=== PATIENT | female | born 1945 | race Caucasian/White ===

== ENCOUNTER 2016-09-10 10:20 | Inpatient (IN) | payer MEDICARE, BC ==
[2016-09-10] MEDS ORDERED: ACETAMINOPHEN IV (For NPO) 1,000 MG in EMPTY BAG 1 BAG IVPB STA (10:31)
[2016-09-10] MEDS ORDERED: IPRATROPIUM 0.5 MG/2.5 ML NEBU INHALATION STA (10:31)
[2016-09-10] MEDS ORDERED: ALBUTEROL NEBULIZED 2.5 MG/3 ML INHALATION STA (10:31)
[2016-09-10] MEDS ORDERED: SODIUM CHLORIDE 0.9% 1,000 ML IV STA (10:31)
--- NOTE | 2016-09-10 10:53 | ED ---
General Adult HPI - General Chief complaint: Shortness of Breath Stated complaint: diff breathing Time Seen by Provider: 09/10/16 10:31 Source: patient, RN notes reviewed, old records reviewed Mode of arrival: wheelchair Limitations: no limitations - History of Present Illness Initial comments: This is a 71-year-old female here for evaluation not feeling well. Fever and chills. Patient has history of COPD. Patient has no sick contacts travel history, no nausea vomiting or diarrhea. No known sick contacts or recent hospitalizations. Patient's complaining of stress of breath with COPD. Patient also complaining of fever. No modifying factors for fever, is taking. She was at home with no help. No chest at this time. No modifying factors for symptoms, mild shortness of breath with exertion - Related Data Home Medications Medication Instructions Recorded Confirmed Budesonide-Formot 160-4.5 Mcg 2 puff INHALATION RT-BID 12/11/13 09/10/16 [Symbicort 160-4.5 Mcg Inhaler] Levothyroxine Sodium [Synthroid] 125 mcg PO DAILY 12/11/13 09/10/16 Lisinopril [Zestril] 20 mg PO BID 12/11/13 09/10/16 Albuterol Sulfate [Proair Hfa] 2 puff INHALATION RT-Q6H PRN 01/08/16 09/10/16 Ipratropium-Albuterol Nebulize 3 ml INHALATION RT-Q4H PRN 01/08/16 09/10/16 [Duoneb 0.5 mg-3 mg/3 ml Soln] Aspirin 325 mg PO Q4H PRN 09/10/16 09/10/16 Ibuprofen [Motrin] 600 mg PO Q6HR PRN 09/10/16 09/10/16 Nystatin 100,000 Unit/ml Susp 500,000 units PO QID 09/10/16 09/10/16 [Mycostatin Oral Susp] Allergies Allergy/AdvReac Type Severity Reaction Status Date / Time bacitracin Allergy Unknown Verified 09/10/16 12:07 [From Neosporin ([id number])] neomycin Allergy Unknown Verified 09/10/16 12:07 [From Neosporin ([id number])] polymyxin B Allergy Unknown Verified 09/10/16 12:07 [From Neosporin ([id number])] prednisone AdvReac Severe SOB Verified 09/10/16 10:27 ELDA/POLY/DEX Allergy Unknown Uncoded 09/10/16 12:10 Review of Systems ROS Statement: Those systems with pertinent positive or pertinent negative responses have been documented in the HPI. ROS Other: All systems not noted in ROS Statement are negative. Past Medical History Past Medical History: Chest Pain / Angina, COPD, Hypertension, Osteoarthritis ( OA), Thyroid Disorder Additional Past Medical History / Comment(s): uses O2 2 liters n/c at night and PRN during the day. wound lt lower leg-since healed. pericarditis History of Any Multi-Drug Resistant Organisms: None Reported Past Surgical History: Heart Catheterization, Hysterectomy, Tubal Ligation Additional Past Surgical History / Comment(s): cataracts Past Anesthesia/Blood Transfusion Reactions: Previous Problems w/ Anesthesia, Postoperative Nausea & Vomiting (PONV) Additional Past Anesthesia/Blood Transfusion Reaction / Comment(s): oxygen was "low" post op, nausea one time Past Psychological History: No Psychological Hx Reported Smoking Status: Current every day smoker Past Alcohol Use History: Rare Additional Past Alcohol Use History / Comment(s): Pt reports has about an oz og gin per day Past Drug Use History: None Reported - Past Family History Mother History Unknown: Yes Family Medical History: Cancer, Thyroid Disorder Father History Unknown: Yes Family Medical History: Cancer General Exam Limitations: no limitations General appearance: alert, in no apparent distress, anxious Head exam: Present: atraumatic, normocephalic, normal inspection Eye exam: Present: normal appearance, PERRL, EOMI. Absent: scleral icterus, conjunctival injection, periorbital swelling ENT exam: Present: mucous membranes dry Neck exam: Present: normal inspection. Absent: tenderness, meningismus, lymphadenopathy Respiratory exam: Present: normal lung sounds bilaterally, wheezes, accessory muscle use, decreased breath sounds, prolonged expiratory. Absent: respiratory distress, rales, rhonchi, stridor Cardiovascular Exam: Present: regular rate, normal rhythm, normal heart sounds. Absent: systolic murmur, diastolic murmur, rubs, gallop, clicks GI/Abdominal exam: Present: soft, normal bowel sounds. Absent: distended, tenderness, guarding, rebound, rigid Extremities exam: Present: normal inspection, full ROM, normal capillary refill. Absent: tenderness, pedal edema, joint swelling, calf tenderness Back exam: Present: normal inspection Neurological exam: Present: alert, oriented X3, CN II-XII intact Psychiatric exam: Present: normal affect, normal mood Skin exam: Present: warm, dry, intact, normal color. Absent: rash Course Vital Signs 09/10/16 09/10/16 09/10/16 10:27 10:57 11:07 Temperature 100.2 F H Pulse Rate 89 101 H 101 H Respiratory 24 Rate Blood Pressure 132/65 O2 Sat by Pulse 92 L Oximetry 09/10/16 09/10/16 11:24 11:34 Temperature Pulse Rate 101 H 101 H Respiratory Rate Blood Pressure O2 Sat by Pulse Oximetry - Reevaluation(s) Reevaluation #1: 09/10/16 12:20 Patient is in no acute distress, states she feels better Brian did at home much better with the breathing treatment. EKG Findings - EKG Comments: EKG Findings:: EKG shows sinus tachycardia rate 101, pO2 42, QRS 90, QTC 422 Medical Decision Making - Medical Decision Making 71 female the ER with fever and shortness of breath, patient improving mesenteric therapy no respiratory distress but will be admitted secondary to COPD exacerbation and fever. Patient will get blood cultures, fever control, steroids and breathing treatments - Lab Data Result diagrams: 09/10/16 10:48 09/10/16 10:48 Lab Results 09/10/16 09/10/16 09/10/16 Range/Units 10:48 10:48 10:48 WBC 16.0 H (3.8-10.6) k/uL RBC 4.51 (3.80-5.40) m/uL Hgb 13.7 (11.4-16.0) gm/dL Hct 42.1 (34.0-46.0) % MCV 93.2 (80.0-100.0) fL MCH 30.5 (25.0-35.0) pg MCHC 32.7 (31.0-37.0) g/dL RDW 13.0 (11.5-15.5) % Plt Count 238 (150-450) k/uL Neutrophils % 88 % Lymphocytes % 6 % Monocytes % 3 % Eosinophils % 0 % Basophils % 0 % Neutrophils # 14.1 H (1.3-7.7) k/uL Lymphocytes # 0.9 L (1.0-4.8) k/uL Monocytes # 0.5 (0-1.0) k/uL Eosinophils # 0.1 (0-0.7) k/uL Basophils # 0.0 (0-0.2) k/uL PT (9.0-12.0) sec INR (<1.1) APTT (22.0-30.0) sec Sodium 135 L (137-145) mmol/L Potassium 4.2 (3.5-5.1) mmol/L Chloride 98 (98-107) mmol/L Carbon Dioxide 29 (22-30) mmol/L Anion Gap 8 mmol/L BUN 22 H (7-17) mg/dL Creatinine 0.65 (0.52-1.04) mg/dL Est GFR (MDRD) Af Amer >60 (>60 ml/min/1.73 sqM) Est GFR (MDRD) Non-Af >60 (>60 ml/min/1.73 sqM) Glucose 195 H (74-99) mg/dL Calcium 9.5 (8.4-10.2) mg/dL Magnesium 2.0 (1.6-2.3) mg/dL Total Bilirubin 0.6 (0.2-1.3) mg/dL AST 23 (14-36) U/L ALT 32 (9-52) U/L Alkaline Phosphatase 74 (38-126) U/L Total Creatine Kinase 126 (30-135) U/L CK-MB (CK-2) 2.3 (0.0-2.4) ng/mL CK-MB (CK-2) Rel Index 1.8 Troponin I <0.012 (0.000-0.034) ng/mL NT-Pro-B Natriuret Pep pg/mL Total Protein 6.3 (6.3-8.2) g/dL Albumin 3.6 (3.5-5.0) g/dL Influenza Type A RNA (Not Detectd) Influenza Type B (PCR) (Not Detectd) 09/10/16 09/10/16 09/10/16 Range/Units 10:48 10:48 10:48 WBC (3.8-10.6) k/uL RBC (3.80-5.40) m/uL Hgb (11.4-16.0) gm/dL Hct (34.0-46.0) % MCV (80.0-100.0) fL MCH (25.0-35.0) pg MCHC (31.0-37.0) g/dL RDW (11.5-15.5) % Plt Count (150-450) k/uL Neutrophils % % Lymphocytes % % Monocytes % % Eosinophils % % Basophils % % Neutrophils # (1.3-7.7) k/uL Lymphocytes # (1.0-4.8) k/uL Monocytes # (0-1.0) k/uL Eosinophils # (0-0.7) k/uL Basophils # (0-0.2) k/uL PT 9.6 (9.0-12.0) sec INR 0.9 (<1.1) APTT 20.5 L (22.0-30.0) sec Sodium (137-145) mmol/L Potassium (3.5-5.1) mmol/L Chloride (98-107) mmol/L Carbon Dioxide (22-30) mmol/L Anion Gap mmol/L BUN (7-17) mg/dL Creatinine (0.52-1.04) mg/dL Est GFR (MDRD) Af Amer (>60 ml/min/1.73 sqM) Est GFR (MDRD) Non-Af (>60 ml/min/1.73 sqM) Glucose (74-99) mg/dL Calcium (8.4-10.2) mg/dL Magnesium (1.6-2.3) mg/dL Total Bilirubin (0.2-1.3) mg/dL AST (14-36) U/L ALT (9-52) U/L Alkaline Phosphatase (38-126) U/L Total Creatine Kinase (30-135) U/L CK-MB (CK-2) (0.0-2.4) ng/mL CK-MB (CK-2) Rel Index Troponin I (0.000-0.034) ng/mL NT-Pro-B Natriuret Pep 72 pg/mL Total Protein (6.3-8.2) g/dL Albumin (3.5-5.0) g/dL Influenza Type A RNA Not Detected (Not Detectd) Influenza Type B (PCR) Not Detected (Not Detectd) Disposition Clinical Impression: Acute exacerbation of chronic obstructive airways disease, Fever, Community acquired pneumonia Disposition: ADMITTED IP TO THIS HOSP Condition: Fair Referrals: Chris Sears MD [Primary Care Provider] - 1-2 days
[2016-09-10 11:09] LABS: Basophils % (A) 0 %; CH 30.1; CHCM 32.4; Eosinophils # (A) 0.1 k/uL (0-0.7); Eosinophils % (A) 0 %; HCT 42.1 % (34.0-46.0); HDW 2.22; HGB 13.7 gm/dL (11.4-16.0); Luc # (Auto) 0.32; Luc % (Auto) 2; Lymphocytes # (A) 0.9 k/uL (1.0-4.8); Lymphocytes % (A) 6 %; MCH 30.5 pg (25.0-35.0); MCHC 32.7 g/dL (31.0-37.0); MCV 93.2 fL (80.0-100.0); Mean Platelet Volume 6.8; Monocytes # (A) 0.5 k/uL (0-1.0); Monocytes % (A) 3 %; Neutrophils # (A) 14.1 k/uL (1.3-7.7); Neutrophils % (A) 88 %; RBC 4.51 m/uL (3.80-5.40); WBC (Perox) 16.02
[2016-09-10 11:20] LABS: ALT 32 U/L (9-52); AST 23 U/L (14-36); Alkaline Phosphatase 74 U/L (38-126); Anion Gap 8 mmol/L; Blood Urea Nitrogen 22 mg/dL (7-17); Calcium 9.5 mg/dL (8.4-10.2); Carbon Dioxide 29 mmol/L (22-30); Chloride 98 mmol/L (98-107); Glucose 195 mg/dL (74-99); Non-African American GFR(MDRD) >60 (>60 ml/min/1.73 sqM); Potassium 4.2 mmol/L (3.5-5.1); Sodium 135 mmol/L (137-145); Total Bilirubin 0.6 mg/dL (0.2-1.3); Total Protein 6.3 g/dL (6.3-8.2)
[2016-09-10 11:26] LABS: INR 0.9 (<1.1); Prothrombin Time 9.6 sec (9.0-12.0)
[2016-09-10 11:39] LABS: Partial Thromboplastin Time 20.5 sec (22.0-30.0)
[2016-09-10 11:46] LABS: Creatine Kinase 126 U/L (30-135)
[2016-09-10 11:57] LABS: Creatine Kinase MB 2.3 ng/mL (0.0-2.4); Troponin I <0.012 ng/mL (0.000-0.034)
--- NOTE | 2016-09-10 12:00 | XR ---
EXAMINATION TYPE: XR chest 2V DATE OF EXAM: 09/10/2016 11:54 AM HISTORY: difficulty breathing. REFERENCE: Previous study dated 01/08/2016. FINDINGS: The lungs are overinflated but clear. Pleural spaces are clear. The heart is not enlarged. IMPRESSION: COPD.
[2016-09-10] MEDS ORDERED: AZITHROMYCIN 500 MG in SODIUM CHLORIDE 0.9% 250 ML IVPB STA (12:18)
[2016-09-10] MEDS ORDERED: PNEUMONIA PROTOCOL UTILIZED 1 EACH MISC PO PRN (12:18)
[2016-09-10] MEDS: SODIUM CHLORIDE 0.9% 1,000 ML IV SCH ×2 (12:42→21:30)
[2016-09-10 14:02] VITALS: BMI 23.3
[2016-09-10] MEDS ORDERED: IPRATROPIUM-ALBUTEROL 3 ML NEB INHALATION PRN (14:26)
[2016-09-10] MEDS: IPRATROPIUM-ALBUTEROL 3 ML NEB INHALATION SCH ×2 (15:33→19:42)
[2016-09-10] MEDS: IBUPROFEN 600 MG TAB PO PRN (15:40)
--- NOTE | 2016-09-10 16:50 | P.CNPUL ---
History of Present Illness Consult date: 09/10/16 Requesting physician: Chava Limon Reason for consult: dyspnea, COPD Chief complaint: Shortness of breath History of present illness: This is a very pleasant 71-year-old female patient who follows with Dr. Sears in our office as her primary care physician. She has a history of severe chronic obstructive pulmonary disease, Gold stage IV with FEV1 value of 28% of predicted. Unfortunately, she continues to smoke. She is maintained on Symbicort and DuoNeb inhalations. She has has a history of chronic anxiety, hypertension, hypothyroidism, chronic tobacco dependence, seasonal ALLERGIES. She had been doing fairly well as far as her COPD was concerned until recently. She developed increasing shortness of breath, cough and congestion. She was seen in a urgent care center and treated with low-dose prednisone. 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 Sears usually manages her with small doses which she does tolerate. She presented here to the emergency room today with increasing shortness of breath, cough and congestion. Her chest x-ray does show evidence of chronic obstructive pulmonary disease but no acute pulmonary process. Her influenza screen is negative. She has mild leukocytosis with a white count of 16.0. She did have a T-max of 100.2 on arrival. She is maintaining O2 saturations in the low 90s on 2 L/m per nasal cannula. She is seen currently on the regular medical floor. She is awake and alert in no acute distress. She states she is already breathing a little easier today as compared to yesterday. She did have complaints of fatigue and weakness and did have fever and chills at home. She has a productive cough of yellow sputum. No hemoptysis. Review of Systems 14 point review of system was conducted. All negative other than as mentioned in HPI. Past Medical History Past Medical History: Chest Pain / Angina, COPD, Hypertension, Osteoarthritis ( OA), Thyroid Disorder Additional Past Medical History / Comment(s): O2 2 liters nc at night and PRN during the day. History of Any Multi-Drug Resistant Organisms: None Reported Past Surgical History: Heart Catheterization, Hysterectomy, Tubal Ligation Additional Past Surgical History / Comment(s): cataracts removed Past Anesthesia/Blood Transfusion Reactions: Previous Problems w/ Anesthesia, Postoperative Nausea & Vomiting (PONV) Additional Past Anesthesia/Blood Transfusion Reaction / Comment(s): oxygen was "low" post op, nausea one time Past Psychological History: No Psychological Hx Reported Smoking Status: Current every day smoker Past Alcohol Use History: Rare Additional Past Alcohol Use History / Comment(s): special occasions only Past Drug Use History: None Reported - Past Family History Mother History Unknown: Yes Family Medical History: Cancer, Thyroid Disorder Additional Family Medical History / Comment(s): Liver Cancer Father History Unknown: Yes Family Medical History: Cancer Medications and Allergies Home Medications Medication Instructions Recorded Confirmed Type Budesonide-Formot 160-4.5 Mcg 2 puff INHALATION RT-BID 12/11/13 09/10/16 History [Symbicort 160-4.5 Mcg Inhaler] Levothyroxine Sodium [Synthroid] 125 mcg PO DAILY 12/11/13 09/10/16 History Lisinopril [Zestril] 20 mg PO BID 12/11/13 09/10/16 History Albuterol Sulfate [Proair Hfa] 2 puff INHALATION RT-Q6H PRN 01/08/16 09/10/16 History Ipratropium-Albuterol Nebulize 3 ml INHALATION RT-Q4H PRN 01/08/16 09/10/16 History [Duoneb 0.5 mg-3 mg/3 ml Soln] Aspirin 325 mg PO Q4H PRN 09/10/16 09/10/16 History Ibuprofen [Motrin] 600 mg PO Q6HR PRN 09/10/16 09/10/16 History Nystatin 100,000 Unit/ml Susp 500,000 units PO QID 09/10/16 09/10/16 History [Mycostatin Oral Susp] Allergies Allergy/AdvReac Type Severity Reaction Status Date / Time bacitracin Allergy Unknown Verified 09/10/16 12:07 [From Neosporin ([id number])] neomycin Allergy Unknown Verified 09/10/16 12:07 [From Neosporin ([id number])] polymyxin B Allergy Unknown Verified 09/10/16 12:07 [From Neosporin ([id number])] prednisone AdvReac Severe SOB Verified 09/10/16 10:27 ELDA/POLY/DEX Allergy Unknown Uncoded 09/10/16 12:10 Physical Exam Vitals: Vital Signs Temp Pulse Pulse Resp BP BP Pulse Ox 09/10/16 15:47 98 09/10/16 15:33 98 09/10/16 15:00 99.1 F 89 18 105/66 96 09/10/16 12:37 98.1 F 85 20 121/67 96 Intake and Output 09/10/16 09/10/16 09/10/16 06:59 14:59 22:59 Other: Voiding Method Toilet Toilet Weight 65.77 kg Patient Weight 09/11/16 06:59 Weight 65.77 kg GENERAL EXAM: Alert, comfortable in no apparent distress. HEAD: Normocephalic. EYES: Normal reaction of pupils, equal size. NOSE: Clear with pink turbinates. THROAT: No erythema or exudates. NECK: No masses, no JVD. CHEST: No chest wall deformity. LUNGS: Equal air entry with end expiratory wheeze. Diminished. CVS: S1 and S2 normal with no audible murmurs, regular rhythm. ABDOMEN: No hepatosplenomegaly, normal bowel sounds, no guarding or rigidity. SPINE: No scoliosis or deformity SKIN: No rashes CENTRAL NERVOUS SYSTEM: No focal deficits, tone is normal in all 4 extremities. Extremities: There is no peripheral edema. No clubbing, no cyanosis. Peripheral pulses are intact. Results - Laboratory Findings CBC and BMP: 09/10/16 10:48 09/10/16 10:48 PT/INR, D-dimer PT 9.6 sec (9.0-12.0) 09/10/16 10:48 INR 0.9 (<1.1) 09/10/16 10:48 - Diagnostic Findings Chest x-ray: image reviewed (COPD) Assessment and Plan Plan: Impression: #1 Acute exacerbation of severe Gold stage IV, oxygen dependent chronic obstructive pulmonary disease with an FEV1 value 28% of predicted. #2 Chronic and ongoing tobacco dependence. #3 Hypertension. #4 Hypothyroidism. Plan: The patient was seen and evaluated by Dr. Sears. Her chest x-ray and labs were reviewed. We'll continue with her current medications including bronchodilators and empiric antibiotics in the form of azithromycin and ceftriaxone. We will start her on prednisone 10 mg daily and she is usually able to tolerate this dose. 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 She is on Lovenox for DVT prophylaxis. Will increase her activity as tolerated. She is again educated regarding the importance of complete smoking cessation. A NicoDerm patch will be offered. We 'll continue to follow and make further recommendations based on her clinical status. Time with Patient: Greater than 30
[2016-09-10] MEDS: NICOTINE 14MG/24HR PATCH TRANSDERM SCH (17:01)
[2016-09-10] MEDS: predniSONE 10 MG TAB PO SCH (17:01)
[2016-09-10] MEDS: NYSTATIN 100,000 UNIT/ML SUSP 500,000 UNIT/5 ML CUP PO SCH ×2 (17:02→21:30)
[2016-09-10] MEDS ORDERED: HYDROcodone/APAP 5-325MG 1 EACH TAB PO PRN (19:55)
[2016-09-10] MEDS ORDERED: ALPRAZolam 0.25 MG TAB PO PRN (19:55)
[2016-09-10] MEDS ORDERED: TEMAZEPAM 15 MG CAP PO PRN (19:55)
[2016-09-10] MEDS ORDERED: SYMBICORT 160-4.5 MCG INHALER INHALATION SCH (20:00)
[2016-09-10] MEDS: BUDESONIDE 1 MG/2 ML NEBU INHALATION SCH (20:04)
[2016-09-10] MEDS: FORMOTEROL FUMARATE 20 MCG/2 ML NEBU INHALATION SCH (20:04)
[2016-09-10] MEDS: LISINOPRIL 20 MG TAB PO SCH (20:55)
[2016-09-11] MEDS: LEVOTHYROXINE 125 MCG TAB PO SCH (06:05)
[2016-09-11] MEDS: IBUPROFEN 600 MG TAB PO PRN (06:27)
[2016-09-11] MEDS: FORMOTEROL FUMARATE 20 MCG/2 ML NEBU INHALATION SCH ×2 (07:04→19:07)
[2016-09-11] MEDS: IPRATROPIUM-ALBUTEROL 3 ML NEB INHALATION SCH ×4 (07:05→19:07)
[2016-09-11] MEDS: BUDESONIDE 1 MG/2 ML NEBU INHALATION SCH ×2 (07:05→19:07)
--- NOTE | 2016-09-11 07:44 | XR ---
EXAMINATION TYPE: XR chest 2V DATE OF EXAM: 09/11/2016 6:24 AM HISTORY: pneumonia. REFERENCE: Previous study dated 09/10/2016. FINDINGS: The lungs are overinflated but clear. Pleural spaces are clear. Heart size is normal. IMPRESSION: COPD.
[2016-09-11 08:27] LABS: Basophils % (A) 0 %; CH 29.6; CHCM 31.1; Eosinophils # (A) 0.1 k/uL (0-0.7); Eosinophils % (A) 1 %; HCT 39.2 % (34.0-46.0); HDW 2.24; HGB 12.1 gm/dL (11.4-16.0); Hypochromasia Slight; Luc # (Auto) 0.48; Luc % (Auto) 4; Lymphocytes # (A) 1.5 k/uL (1.0-4.8); Lymphocytes % (A) 11 %; MCH 29.5 pg (25.0-35.0); MCHC 30.9 g/dL (31.0-37.0); MCV 95.4 fL (80.0-100.0); Mean Platelet Volume 6.9; Monocytes # (A) 0.4 k/uL (0-1.0); Monocytes % (A) 3 %; Neutrophils # (A) 10.3 k/uL (1.3-7.7); Neutrophils % (A) 81 %; RBC 4.11 m/uL (3.80-5.40); RDW 12.8 % (11.5-15.5); WBC 12.8 k/uL (3.8-10.6); WBC (Perox) 13.68
[2016-09-11] MEDS: PANTOPRAZOLE 40 MG TABLET PO SCH (08:29)
[2016-09-11] MEDS: ENOXAPARIN 40 MG/0.4 ML SYRINGE SQ SCH (08:29)
[2016-09-11] MEDS: LISINOPRIL 20 MG TAB PO SCH ×2 (08:29→20:06)
[2016-09-11] MEDS: NYSTATIN 100,000 UNIT/ML SUSP 500,000 UNIT/5 ML CUP PO SCH ×4 (08:29→20:59)
[2016-09-11] MEDS: predniSONE 10 MG TAB PO SCH (08:29)
[2016-09-11] MEDS: NICOTINE 14MG/24HR PATCH TRANSDERM SCH (08:30)
[2016-09-11 08:40] LABS: Anion Gap 7 mmol/L; Blood Urea Nitrogen 11 mg/dL (7-17); Calcium 8.8 mg/dL (8.4-10.2); Carbon Dioxide 28 mmol/L (22-30); Chloride 105 mmol/L (98-107); Glucose 121 mg/dL (74-99); Non-African American GFR(MDRD) >60 (>60 ml/min/1.73 sqM); Potassium 4.1 mmol/L (3.5-5.1); Sodium 140 mmol/L (137-145)
[2016-09-11] MEDS: SODIUM CHLORIDE 0.9% 1,000 ML IV SCH ×2 (08:41→20:05)
--- NOTE | 2016-09-11 09:40 | HP ---
DATE OF ADMISSION: 09/10/2016 CHIEF COMPLAINT: Shortness of breath. HISTORY OF PRESENT ILLNESS: This 71-year-old woman with a past medical history of multiple medical problems including chest pain, COPD, hypertension, history of pleurisy, pericarditis, history of chronic hypoxic respiratory failure, being followed by Dr. Sears in the outpatient setting, was not feeling well over the past several days. The patient denies shortness of breath and the patient also had fever and chills and felt very cold and the patient came to [facility] and admitted for further evaluation and treatment. Initial chest x-ray done in the ER showed only chronic obstructive pulmonary disease. There is no history of any headache, loss of consciousness or seizures. No history of hematochezia or melena at this time. Evaluation by Dr. Sears is progressing at this time. PAST MEDICAL HISTORY: COPD, hypertension, DJD, history of hypothyroidism, history of chronic hypoxic respiratory failure. Medications prior to admission include home medications are: 1. Nystatin 500,000 p.o. q.i.d. 2. Zestril 20 mg p.o. b.i.d. 3. Synthroid 125 mcg p.o. daily. 4. Duoneb 3 mL q.i.d. and q.4 and p.r.n. 5. Motrin 600 mg p.o. q.6 p.r.n. 6. Symbicort 160/4.5, 2 puffs b.i.d. 7. Aspirin 325 mg daily. 8. Pro-Air 2 puffs q.6 p.r.n. ALLERGIES: BACITRACIN, NEOMYCIN, POLYMYXIN. PREDNISONE NEOSPORIN. FAMILY HISTORY: History of cancer, thyroid disorder, liver cancer. SOCIAL HISTORY: History of smoking. Otherwise, no history of alcohol intake. REVIEW OF SYSTEMS: ENT: No diminished vision. No diminished hearing. CARDIOVASCULAR: No angina, palpitations. RESPIRATORY: as mentioned earlier. GASTROINTESTINAL: No nausea or vomiting. : No dysuria. CENTRAL NERVOUS SYSTEM: No numbness or weakness. ALLERGY/IMMUNOLOGY: No asthma or hayfever. MUSCULOSKELETAL: As mentioned earlier. HEMATOLOGY/ONCOLOGY: No history of anemia. ENDOCRINE: Hypothyroidism. CONSTITUTIONAL: As mentioned earlier. DERMATOLOGY: Negative. RHEUMATOLOGY: Negative. PSYCHIATRY: As mentioned earlier. PHYSICAL EXAMINATION: The patient is alert and oriented times three. Pulse is 89, blood pressure 130/65, respirations 24, temperature 100.2, pulse ox 90% on 2 L. HEENT: Conjunctivae normal. Oral mucosa moist. NECK: No jugular venous distention. No carotid bruit. No lymph node enlargement. CARDIOVASCULAR: S1, S2 muffled. No S3, no S4. RESPIRATORY: Breath sounds diminished at the bases. Bilateral scattered rhonchi and crackles. Expiratory wheezing also present. Expiratory prolongation of the breath sounds also present. No bronchial breath sounds. ABDOMEN: Soft, nontender. No mass palpable. Legs: No edema. No swelling. Nervous system: Higher function as mentioned earlier, moves all four limbs. No focal deficits. LYMPHATICS: No lymph nodes palpable in the neck, axillae or groin. SKIN: No ulcer, rash or bleeding. LABS: Chest x-ray reviewed. revealed increased bronchial vesicular markings. Otherwise WBC 16. APT 20.5. Sodium is 135. ASSESSMENT: 1. Chronic obstructive pulmonary disease exacerbation with acute purulent bronchitis. 2. Increased WBC. 3. Hyponatremia. 4. Increased random blood sugar. 5. History of chest pain, angina. 6. Hypertension. 7. Chronic hypoxic respiratory failure. 8. History of degenerative joint disease. 9. History of cardiac catheterization. 10. Continued ongoing nicotine dependence. 11. History of pericarditis. 12. History of degenerative joint disease. 13. History of hypothyroidism. RECOMMENDATIONS AND DISCUSSION: In this 71 -year-old woman who presented with multiple complex medical issues, we will monitor the patient closely. Continue with the current medication and symptomatic treatment. Otherwise, we will monitor the patient closely. Continue the intensive bronchodilator treatment, antibiotics. The patient was started on Rocephin and Zithromax. We will continue to monitor. Steroids. Guarded prognosis because of multiple complex medical issues. Further recommendations to follow. See orders. Home medications reconciliation has been done. DVT prophylaxis. Patient was started on Lovenox. Otherwise, we will follow the patient closely with Dr. Sears. See orders for further details. Prognosis guarded. A copy of dictation being forwarded to Dr. Sears who is the primary care physician. [facility]
[2016-09-11] MEDS: AZITHROMYCIN 500 MG TAB PO SCH (11:45)
--- NOTE | 2016-09-11 12:20 | P.PN ---
Subjective Principal diagnosis: Acute exacerbation of chronic obstructive pulmonary disease. This is a very pleasant 71-year-old female patient who follows with Dr. Sears in our office as her primary care physician. She has a history of severe chronic obstructive pulmonary disease, Gold stage IV with FEV1 value of 28% of predicted. Unfortunately, she continues to smoke. She is maintained on Symbicort and DuoNeb inhalations. She has has a history of chronic anxiety, hypertension, hypothyroidism, chronic tobacco dependence, seasonal ALLERGIES. She had been doing fairly well as far as her COPD was concerned until recently. She developed increasing shortness of breath, cough and congestion. She was seen in a urgent care center and treated with low-dose prednisone. 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 Sears usually manages her with small doses which she does tolerate. She presented here to the emergency room today with increasing shortness of breath, cough and congestion. Her chest x-ray does show evidence of chronic obstructive pulmonary disease but no acute pulmonary process. Her influenza screen is negative. She has mild leukocytosis with a white count of 16.0. She did have a T-max of 100.2 on arrival. She is maintaining O2 saturations in the low 90s on 2 L/m per nasal cannula. She is seen currently on the regular medical floor. She is awake and alert in no acute distress. She states she is already breathing a little easier today as compared to yesterday. She did have complaints of fatigue and weakness and did have fever and chills at home. She has a productive cough of yellow sputum. No hemoptysis. The patient is seen again today 09/11/2016 in follow-up on the regular medical floor. She is awake and alert in no acute distress. She is breathing better today as compared to yesterday but not quite back to her baseline. her repeat chest x-ray continues to show evidence of chronic obstructive pulmonary disease but no acute pulmonary process. No pneumonia. She has been maintaining good O2 saturations in the upper 90s on 2 L/m per nasal cannula. She's beenafebrile. Hemodynamically stable. White count improved. Objective - Vital Signs Vital signs: Vital Signs Temp 97.9 F 09/11/16 07:00 Pulse 84 09/11/16 11:14 Resp 16 09/11/16 07:00 BP 156/85 09/11/16 07:00 Pulse Ox 96 03/25/17 07:07 Intake & Output 09/10/16 09/11/16 09/11/16 18:59 06:59 18:59 Intake Total 400 Balance 400 Weight 65.77 kg Intake: Oral 400 Other: Voiding Method Toilet # Voids 2 1 - Exam GENERAL EXAM: Alert, active, comfortable in no apparent distress. HEAD: Normocephalic. EYES: Normal reaction of pupils, equal size. NOSE: Clear with pink turbinates. THROAT: No erythema or exudates. NECK: No masses, no JVD. CHEST: No chest wall deformity. LUNGS: Equal air entry with end expiratory wheeze, diminished. CVS: S1 and S2 normal with no audible mumurs, regular rhythm. ABDOMEN: No hepatosplenomegaly, normal bowel sounds, no guarding or rigidity. SPINE: No scoliosis or deformity SKIN: No rashes CENTRAL NERVOUS SYSTEM: No focal deficits, tone is normal in all 4 extremities. Extremities: There is no significant peripheral edema. No clubbing, no cyanosis. Peripheral pulses are intact. - Labs CBC & Chem 7: 09/11/16 07:51 09/11/16 07:48 Labs: Abnormal Lab Results - Last 24 Hours (Table) 09/11/16 09/11/16 Range/Units 07:48 07:51 WBC 12.8 H (3.8-10.6) k/uL MCHC 30.9 L (31.0-37.0) g/dL Neutrophils # 10.3 H (1.3-7.7) k/uL Glucose 121 H (74-99) mg/dL Microbiology - Last 24 Hours (Table) 09/10/16 17:00 Gram Stain - Preliminary Sputum Sputum Culture - Preliminary Assessment and Plan Plan: Impression: #1 Acute exacerbation of severe Gold stage IV, oxygen dependent chronic obstructive pulmonary disease with an FEV1 value 28% of predicted. chest x-ray continues to show COPD but no evidence of pneumonia. #2 Chronic and ongoing tobacco dependence. #3 Hypertension. #4 Hypothyroidism. Plan: The patient was seen and evaluated by Dr. Sears. Her chest x-ray and labs were reviewed. We'll continue with her current medications including bronchodilators and empiric antibiotics in the form of azithromycin and ceftriaxone. We will continue her on prednisone 10 mg daily and she is usually able to tolerate this dose. 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 She is on Lovenox for DVT prophylaxis. Will increase her activity as tolerated. She is again educated regarding the importance of complete smoking cessation. A NicoDerm patch has been applied. We'll continue to follow and make further recommendations based on her clinical status.
--- NOTE | 2016-09-11 12:44 | P.PN ---
Subjective Date of service 09/11/2016. Progress note being dictated for Dr. Limon. Interval history: This a 71-year-old female admitted with acute exacerbation COPD with purulent bronchitis, hyponatremia and multiple other medical issues. Maintained on Rocephin, Zithromax, nebulized bronchodilators, systemic steroids with breathing improving. Maintaining O2 sats of 96-97% on 2 L nasal cannula. Chest x-ray reporting COPD. Afebrile. Denies chest pain, palpitations or increasing shortness of breath. Objective - Vital Signs Vital signs: Vital Signs Temp 97.9 F 09/11/16 07:00 Pulse 84 09/11/16 11:14 Resp 16 09/11/16 07:00 BP 156/85 09/11/16 07:00 Pulse Ox 96 09/11/16 07:07 Intake & Output 09/10/16 09/11/16 09/11/16 18:59 06:59 18:59 Intake Total 400 Balance 400 Weight 65.77 kg Intake: Oral 400 Other: Voiding Method Toilet # Voids 2 1 - Exam PHYSICAL EXAM: VITAL SIGNS: As above GENERAL: [Sitting up in bed, no acute distress] HEENT: [Pupils equal conjunctiva normal.] NECK: [Supple, no JVD] RESPIRATORY EFFORT:[Mildly increased] LUNGS: Bilateral bases Diminished with expiratory wheezing, scattered rhonchi CARDIOVASCULAR[regular S1 and S2, no edema] GI: [Abdomen soft, nontender, positive bowel sounds.] PSYCH: [Alert and oriented -3, mood and affect normal.] NEURO: [No focal deficits, moves all 4 extremities, strength and sensation grossly intact] - Labs CBC & Chem 7: 09/11/16 07:51 09/11/16 07:48 Labs: Abnormal Lab Results - Last 24 Hours (Table) 09/11/16 09/11/16 Range/Units 07:48 07:51 WBC 12.8 H (3.8-10.6) k/uL MCHC 30.9 L (31.0-37.0) g/dL Neutrophils # 10.3 H (1.3-7.7) k/uL Glucose 121 H (74-99) mg/dL Microbiology - Last 24 Hours (Table) 09/10/16 17:00 Gram Stain - Preliminary Sputum Sputum Culture - Preliminary Assessment and Plan Plan: 1. [Acute exacerbation of COPD with purulent bronchitis]. 2. [Leukocytosis, improving]. 3. [Hyponatremia, resolved]. 4. [History of chest pain, angina]. 5. [Hypertension]. 6. [Chronic hypoxic respiratory failure]. 7. [Degenerative joint disease]. 8. Continued ongoing nicotine dependence 9. Hypothyroidism Plan: Continue on current medication regime, empiric antibiotics, nebulized bronchodilators, steroids, monitoring and symptomatic treatment. Smoking cessation readdressed. Increase ambulation as tolerated. Per pulmonary patient maintained on lower dose steroids given patient's history of steroid psychosis with higher doses. Further recommendations to follow. The impression and plan of care has been dictated as directed. : I performed a H&P examination of this patient and discussed the same with the dictator. I agree with the dictator's note. Any additional findings/opinions/ etc. will be noted.
[2016-09-12] MEDS: LEVOTHYROXINE 125 MCG TAB PO SCH (06:00)
[2016-09-12] MEDS: SODIUM CHLORIDE 0.9% 1,000 ML IV SCH ×2 (06:00→15:35)
[2016-09-12] MEDS: NICOTINE 14MG/24HR PATCH TRANSDERM SCH (08:02)
[2016-09-12] MEDS: PANTOPRAZOLE 40 MG TABLET PO SCH (08:03)
[2016-09-12] MEDS: predniSONE 10 MG TAB PO SCH (08:03)
[2016-09-12] MEDS: LISINOPRIL 20 MG TAB PO SCH (08:03)
[2016-09-12] MEDS: ENOXAPARIN 40 MG/0.4 ML SYRINGE SQ SCH (08:03)
[2016-09-12] MEDS: NYSTATIN 100,000 UNIT/ML SUSP 500,000 UNIT/5 ML CUP PO SCH ×2 (08:04→13:05)
[2016-09-12 08:14] VITALS: RESP 16
[2016-09-12] MEDS: IPRATROPIUM-ALBUTEROL 3 ML NEB INHALATION SCH ×2 (08:30→13:20)
[2016-09-12] MEDS: FORMOTEROL FUMARATE 20 MCG/2 ML NEBU INHALATION SCH (08:30)
[2016-09-12] MEDS: BUDESONIDE 1 MG/2 ML NEBU INHALATION SCH (08:30)
[2016-09-12 09:38] LABS: Basophils % (A) 0 %; CH 29.7; CHCM 31.5; Eosinophils # (A) 0.1 k/uL (0-0.7); Eosinophils % (A) 2 %; HCT 38.3 % (34.0-46.0); HDW 2.34; HGB 11.9 gm/dL (11.4-16.0); Luc # (Auto) 0.42; Luc % (Auto) 4; Lymphocytes # (A) 1.5 k/uL (1.0-4.8); Lymphocytes % (A) 16 %; MCH 29.4 pg (25.0-35.0); MCV 94.8 fL (80.0-100.0); Monocytes # (A) 0.4 k/uL (0-1.0); Monocytes % (A) 4 %; Neutrophils % (A) 74 %; RBC 4.04 m/uL (3.80-5.40); RDW 12.7 % (11.5-15.5); WBC 9.5 k/uL (3.8-10.6); WBC (Perox) 10.37
[2016-09-12 09:58] LABS: Anion Gap 7 mmol/L; Blood Urea Nitrogen 10 mg/dL (7-17); Calcium 9.2 mg/dL (8.4-10.2); Carbon Dioxide 30 mmol/L (22-30); Chloride 102 mmol/L (98-107); Glucose 138 mg/dL (74-99); Non-African American GFR(MDRD) >60 (>60 ml/min/1.73 sqM); Potassium 4.2 mmol/L (3.5-5.1); Sodium 139 mmol/L (137-145)
[2016-09-12] MEDS: AZITHROMYCIN 500 MG TAB PO SCH (11:10)
--- NOTE | 2016-09-12 11:28 | PN ---
DATE OF SERVICE: 09/11/2016 This 71-year-old woman was admitted with COPD acute exacerbation, is being closely monitored. Patient is improved slightly. Seen and evaluated the patient with the nurse practitioner. Please refer to the nurse practitioner's notes and impression document as ascribed for further information. Follow closely with Dr. Sears. Further recommendations to follow.
--- NOTE | 2016-09-12 12:58 | P.PN ---
Subjective Principal diagnosis: Acute exacerbation of COPD This is a very pleasant 71-year-old female patient who follows with Dr. Sears in our office as her primary care physician. She has a history of severe chronic obstructive pulmonary disease, Gold stage IV with FEV1 value of 28% of predicted. Unfortunately, she continues to smoke. She is maintained on Symbicort and DuoNeb inhalations. She has has a history of chronic anxiety, hypertension, hypothyroidism, chronic tobacco dependence, seasonal ALLERGIES. She had been doing fairly well as far as her COPD was concerned until recently. She developed increasing shortness of breath, cough and congestion. She was seen in a urgent care center and treated with low-dose prednisone. 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 Sears usually manages her with small doses which she does tolerate. She presented here to the emergency room today with increasing shortness of breath, cough and congestion. Her chest x-ray does show evidence of chronic obstructive pulmonary disease but no acute pulmonary process. Her influenza screen is negative. She has mild leukocytosis with a white count of 16.0. She did have a T-max of 100.2 on arrival. She is maintaining O2 saturations in the low 90s on 2 L/m per nasal cannula. She is seen currently on the regular medical floor. She is awake and alert in no acute distress. She states she is already breathing a little easier today as compared to yesterday. She did have complaints of fatigue and weakness and did have fever and chills at home. She has a productive cough of yellow sputum. No hemoptysis. The patient is seen again today 09/11/2016 in follow-up on the regular medical floor. She is awake and alert in no acute distress. She is breathing better today as compared to yesterday but not quite back to her baseline. her repeat chest x-ray continues to show evidence of chronic obstructive pulmonary disease but no acute pulmonary process. No pneumonia. She has been maintaining good O2 saturations in the upper 90s on 2 L/m per nasal cannula. She's beenafebrile. Hemodynamically stable. White count improved. Reevaluated today on 09/12/2016, patient is doing much better, breathing a lot easier. Hence the patient could be considered for discharge planning on her present meds including low dose of prednisone 10 mg tapered over the next 2 weeks, and it would be 10 mg daily for 1 week and 5 mg daily for 1 week. Patient is to resume her bronchodilators at home, and placed on Ceftin 500 mg twice a day for 1 week. Objective - Vital Signs Vital signs: Vital Signs Temp 96.3 F L 09/12/16 07:00 Pulse 84 09/12/16 08:58 Resp 16 09/12/16 07:00 BP 174/78 09/12/16 07:00 Pulse Ox 95 09/12/16 07:00 Intake & Output 09/11/16 09/12/16 09/12/16 18:59 06:59 18:59 Intake Total 660 Balance 660 Intake: Oral 660 Other: Voiding Method Toilet # Voids 1 2 - Exam GENERAL EXAM: Alert, active, comfortable in no apparent distress. HEAD: Normocephalic. EYES: Normal reaction of pupils, equal size. NOSE: Clear with pink turbinates. THROAT: No erythema or exudates. NECK: No masses, no JVD. CHEST: No chest wall deformity. LUNGS: Equal air entry diminished at the bases no crackles or rhonchi or wheezes. CVS: S1 and S2 normal with no audible mumurs, regular rhythm. ABDOMEN: No hepatosplenomegaly, normal bowel sounds, no guarding or rigidity. SPINE: No scoliosis or deformity SKIN: No rashes CENTRAL NERVOUS SYSTEM: No focal deficits, tone is normal in all 4 extremities. Extremities: There is no significant peripheral edema. No clubbing, no cyanosis. Peripheral pulses are intact. - Labs CBC & Chem 7: 09/12/16 08:37 09/12/16 08:37 Labs: Abnormal Lab Results - Last 24 Hours (Table) 09/12/16 Range/Units 08:37 Glucose 138 H (74-99) mg/dL Assessment and Plan Plan: #1 Acute exacerbation of severe Gold stage IV, oxygen dependent chronic obstructive pulmonary disease with an FEV1 value 28% of predicted. chest x-ray continues to show COPD but no evidence of pneumonia. #2 Chronic and ongoing tobacco dependence. #3 Hypertension. #4 Hypothyroidism. Recommendation: Consider discharging the patient home today on her usual bronchodilators, plus prednisone 10 mg tapered over 2 weeks, plus Ceftin 500 mg twice a day for 1 week, and to follow-up with me next week in the office. Time with Patient: Less than 30
[2016-09-12 15:37] VITALS: BP 148/96; PULSE 109; TEMP 97.7
--- NOTE | 2016-09-12 16:36 | DS ---
DATE OF ADMISSION: 09/10/2016 DATE OF DISCHARGE: DATE OF SERVICE: 09/12/2016 FINAL DIAGNOSES: 1. Chronic obstructive pulmonary disease acute exacerbation with acute purulent tracheobronchitis, leukocytosis improving. 2. Hyponatremia, resolved. 3. History of chest pain, angina. 4. Hypertension. 5. Chronic hypoxic respiratory failure. 6. Degenerative joint disease. 7. Continued ongoing nicotine dependence. 8. Hypothyroidism. DISCHARGE DISPOSITION: Patient will be discharged in a stable condition with guarded prognosis. Discharge cleared by Dr. Sears. HISTORY OF PRESENT ILLNESS: This 71-year-old woman with a past medical history of multiple medical problems being followed by Dr. Sears in the outpatient setting was admitted with COPD acute exacerbation with acute purulent tracheobronchitis. Treated with bronchodilators, steroids, and with antibiotics. Patient improved significantly. On exam, vitals are stable. CARDIOVASCULAR SYSTEM: S1, S2, muffled. RESPIRATORY: A few scattered rhonchi. ABDOMEN: Soft. Patient is keen on going home. Dr. Sears cleared the patient to be discharged. DISCHARGE ADVICE: 1. Diet is cardiac. 2. Activity limited until followup. 3. Follow up with Dr. Sears in 2 to 3 days. 4. Follow up labs with Dr. Sears. MEDICATIONS ARE: 1. Albuterol. 2. ProAir p.r.n. 3. Aspirin 325 mg p.r.n. 4. Zithromax 500 mg p.o. daily for 5 days. 5. Symbicort 160/4.5 two puffs b.i.d. 6. Ceftin 500 mg p.o. b.i.d. for 5 days. 7. Motrin p.r.n. 8. Albuterol Atrovent updrafts q.i.d. and p.r.n. 9. Synthroid 125 mcg p.o. daily. 10. Zestril 20 mg p.o. b.i.d. 11. Habitrol 14 daily. 12. Nystatin 500,000 p.o. daily. 13. Prednisone 10 mg daily to be adjusted in the outpatient setting by Dr. Sears. Once again, the patient will be discharged in a stable condition with guarded prognosis.
== END 2016-09-12 16:50 | disposition home or self-care (01) | DRG 191 ==
LOC: EC 10:20 → 4MS4W 12:20
PROVIDERS: ADMIT Hospitalist; ATTEND Hospitalist
DX: J44.1 Chronic obstructive pulmonary disease with (acute) exacerbation (principal); J96.11 Chronic respiratory failure with hypoxia; Z99.81 Dependence on supplemental oxygen; E87.1 Hypo-osmolality and hyponatremia; J20.9 Acute bronchitis, unspecified; J44.0 Chronic obstructive pulmonary disease with (acute) lower respiratory infection; E03.9 Hypothyroidism, unspecified; I10 Essential (primary) hypertension; M19.90 Unspecified osteoarthritis, unspecified site; R53.1 Weakness; R00.0 Tachycardia, unspecified; F41.9 Anxiety disorder, unspecified; J30.2 Other seasonal allergic rhinitis; D72.829 Elevated white blood cell count, unspecified; R73.09 Other abnormal glucose; R50.9 Fever, unspecified; F17.200 Nicotine dependence, unspecified, uncomplicated; Z71.6 Tobacco abuse counseling; Z86.79 Personal history of other diseases of the circulatory system; Z88.3 Allergy status to other anti-infective agents; Z88.8 Allergy status to other drugs, medicaments and biological substances; Z86.19 Personal history of other infectious and parasitic diseases; Z79.1 Long term (current) use of non-steroidal anti-inflammatories (NSAID); Z80.0 Family history of malignant neoplasm of digestive organs; Z79.899 Other long term (current) drug therapy; Z79.82 Long term (current) use of aspirin; Z79.51 Long term (current) use of inhaled steroids; Z98.42 Cataract extraction status, left eye; Z98.41 Cataract extraction status, right eye; Z98.51 Tubal ligation status; Z90.710 Acquired absence of both cervix and uterus; Z83.49 Family history of other endocrine, nutritional and metabolic diseases
CPT/HCPCS: 36415; 71020; 80048; 80053; 82550; 82553; 83735; 83880; 84484; 85025; 85610; 85730; 87040; 87070; 87077; 87186; 87205; 87502; 93005; 94640; 94644; 94760; 96361; 96374; 99285

== ENCOUNTER 2016-12-10 15:48 | Inpatient (IN) | payer MEDICARE, BC ==
[2016-12-10] MEDS ORDERED: SODIUM CHLORIDE 0.9% 1,000 ML IV STA (16:25)
[2016-12-10] MEDS ORDERED: IPRATROPIUM-ALBUTEROL 3 ML NEB INHALATION STA (16:26)
[2016-12-10 16:42] LABS: Basophils % (A) 0 %; CH 30.2; CHCM 31.5; Eosinophils % (A) 0 %; HCT 43.8 % (34.0-46.0); HDW 2.21; HGB 13.9 gm/dL (11.4-16.0); Luc % (Auto) 2; Lymphocytes # (A) 0.8 k/uL (1.0-4.8); Lymphocytes % (A) 7 %; MCH 30.4 pg (25.0-35.0); MCHC 31.7 g/dL (31.0-37.0); Mean Platelet Volume 6.6; Monocytes # (A) 0.4 k/uL (0-1.0); Monocytes % (A) 4 %; Neutrophils # (A) 10.2 k/uL (1.3-7.7); Neutrophils % (A) 87 %; RBC 4.56 m/uL (3.80-5.40); RDW 13.4 % (11.5-15.5); WBC 11.7 k/uL (3.8-10.6); WBC (Perox) 12.06
[2016-12-10 16:51] LABS: ALT 41 U/L (9-52); AST 25 U/L (14-36); Alkaline Phosphatase 76 U/L (38-126); Anion Gap 8 mmol/L; Blood Urea Nitrogen 20 mg/dL (7-17); Calcium 9.4 mg/dL (8.4-10.2); Carbon Dioxide 31 mmol/L (22-30); Chloride 94 mmol/L (98-107); Glucose 152 mg/dL (74-99); Non-African American GFR(MDRD) >60 (>60 ml/min/1.73 sqM); Potassium 4.5 mmol/L (3.5-5.1); Sodium 133 mmol/L (137-145); Total Bilirubin 0.1 mg/dL (0.2-1.3); Total Protein 6.2 g/dL (6.3-8.2)
[2016-12-10 17:05] LABS: Creatine Kinase 129 U/L (30-135)
--- NOTE | 2016-12-10 17:12 | XR ---
EXAMINATION TYPE: XR chest 2V DATE OF EXAM: 12/10/2016 COMPARISON: 11/25/2016 HISTORY: Short of breath TECHNIQUE: Frontal and lateral views of the chest are obtained. FINDINGS: Heart and mediastinum are normal. Costophrenic angles are clear. There are no hilar masses . There are chest leads. Bony thorax is intact. IMPRESSION: No active cardiopulmonary disease. No change.
[2016-12-10 17:14] LABS: INR 0.9 (<1.1); Prothrombin Time 9.4 sec (9.0-12.0)
[2016-12-10 17:18] LABS: Troponin I <0.012 ng/mL (0.000-0.034)
[2016-12-10 17:20] LABS: Partial Thromboplastin Time 20.5 sec (22.0-30.0)
[2016-12-10 17:22] LABS: Creatine Kinase MB 4.3 ng/mL (0.0-2.4)
--- NOTE | 2016-12-10 17:38 | ED ---
SOB HPI - General Chief Complaint: Shortness of Breath Stated Complaint: SHAYY Time Seen by Provider: 12/10/16 16:16 Source: patient Mode of arrival: ambulatory Limitations: no limitations - History of Present Illness Initial Comments: This 71-year-old white female presents with a complaint of shortness of breath. It has been intermittent over the last 3 months but worse over the last couple of days. She states that she's had occasional cough with very thick production which is noncolored. She denies any recent fever but did have one several days ago. She denies any actual chest pain. She does have a history of COPD. She has been seeing her lactation coordinator and states that she has been on 2 courses of Augmentin as well as some steroids. She states that she feels as though she may be ALLERGIC to the Augmentin and stopped this medication 9 days ago after only taking it for 5 days. She relates that she had a slight rash at that time and felt like her tissues under her chin were swelling up. It is difficult to obtain an accurate history from her . She denies any leg pain or swelling. She denies any history of DVT or PE. No current chest pain. No other complaints or modifying factors. - Related Data Home Medications Medication Instructions Recorded Confirmed Budesonide-Formot 160-4.5 Mcg 2 puff INHALATION RT-BID 12/11/13 12/10/16 [Symbicort 160-4.5 Mcg Inhaler] Levothyroxine Sodium [Synthroid] 125 mcg PO DAILY 12/11/13 12/10/16 Lisinopril [Zestril] 20 mg PO BID 12/11/13 12/10/16 Albuterol Sulfate [Proair Hfa] 2 puff INHALATION RT-Q6H PRN 01/08/16 12/10/16 Ipratropium-Albuterol Nebulize 3 ml INHALATION RT-QID PRN 01/08/16 12/10/16 [Duoneb 0.5 mg-3 mg/3 ml Soln] Aspirin EC [Ecotrin Low Dose] 81 mg PO DAILY 12/10/16 12/10/16 Vitamin B Complex 1 cap PO DAILY 12/10/16 12/10/16 Allergies Allergy/AdvReac Type Severity Reaction Status Date / Time bacitracin Allergy Rash/Hives Verified 12/10/16 16:38 [From Neosporin ([id number])] neomycin Allergy Rash/Hives Verified 12/10/16 16:38 [From Neosporin ([id number])] polymyxin B Allergy Rash/Hives Verified 12/10/16 16:38 [From Neosporin ([id number])] prednisone AdvReac Severe SOB Verified 12/10/16 16:38 ELDA/POLY/DEX Allergy Rash/Hives Uncoded 12/10/16 16:38 Review of Systems ROS Statement: Those systems with pertinent positive or pertinent negative responses have been documented in the HPI. ROS Other: All systems not noted in ROS Statement are negative. Past Medical History Past Medical History: Chest Pain / Angina, COPD, Hypertension, Osteoarthritis ( OA), Thyroid Disorder Additional Past Medical History / Comment(s): O2 2 liters nc at night and PRN during the day. History of Any Multi-Drug Resistant Organisms: None Reported Past Surgical History: Heart Catheterization, Hysterectomy, Tubal Ligation Additional Past Surgical History / Comment(s): cataracts removed Past Anesthesia/Blood Transfusion Reactions: Previous Problems w/ Anesthesia, Postoperative Nausea & Vomiting (PONV) Additional Past Anesthesia/Blood Transfusion Reaction / Comment(s): oxygen was "low" post op, nausea one time Past Psychological History: Anxiety Smoking Status: Current every day smoker Past Alcohol Use History: Rare Past Drug Use History: None Reported - Past Family History Mother History Unknown: Yes Family Medical History: Cancer, Thyroid Disorder Additional Family Medical History / Comment(s): Liver Cancer Father History Unknown: Yes Family Medical History: Cancer General Exam - General Exam Comments Initial Comments: GENERAL: The patient is well nourished and well hydrated. VITAL SIGNS: Heart rate, blood pressure, respiratory rate reviewed as recorded in nurse's notes. EYES: Pupils are round and reactive. Extraocular movements are intact. No conjunctival / lid redness or swelling. ENT: No external evidence of injury, swelling, or ecchymosis. Airway is patent. Throat is clear. NECK: Nontender. No swelling or evidence of injury. No subcutaneous emphysema. Trachea is midline. No thyroid mass. HEART: Regular rate and rhythm. Good peripheral pulses. LUNGS/CHEST: There is occasional wheezing noted bilaterally. No ecchymosis, subcutaneous emphysema, or tenderness. ABDOMEN: Abdomen soft without tenderness. No palpable masses or organomegaly. No peritoneal signs. No abdominal wall swelling or ecchymosis. EXTREMITIES: No extremity tenderness. Normal muscle tone and function. No thoracolumbar tenderness. NEUROLOGIC: Sensation is grossly intact. Cranial nerve exam reveals face is symmetrical, tongue is midline, speech is clear. SKIN: No abrasions or ecchymosis is noted. No induration or masses noted. PSYCHIATRIC: Alert and oriented. Appropriate behavior and judgment. Limitations: no limitations Course Vital Signs 12/10/16 12/10/16 12/10/16 15:57 16:10 16:39 Temperature 97.6 F Pulse Rate 108 H 100 Respiratory 18 20 Rate Blood Pressure 169/100 O2 Sat by Pulse 94 L Oximetry 12/10/16 16:50 Temperature Pulse Rate 95 Respiratory Rate Blood Pressure O2 Sat by Pulse Oximetry Medical Decision Making - Medical Decision Making The patient is seen and examined. All diagnostics are reviewed. The EKG shows a sinus tachycardia at a rate of 101. There is no ST elevation identified. There is no acute ST T-wave changes noted other than some T-wave inversion in aVL and flattened T waves in lead 1. The IL interval is 150, QRS duration is 94 , and the QTc interval is 451. The laboratory shows a slight hyponatremia and hypochloremia. There is slight elevation of the glucose and CK-MB and white blood cell count. The d-dimer is negative. The troponin is negative. Overall , it is felt as though she has an exacerbation of COPD as well as tracheobronchitis. This is similar to what she had when she was admitted in August 2016. The case will be discussed with internal medicine and she will be admitted with pulmonology to consult. Of note, her ALLERGIES stated that she is ALLERGIC to prednisone but she states that she has been taking this for quite some time and there does not appear to be any ALLERGY to prednisone or steroids. - Lab Data Result diagrams: 12/10/16 16:00 12/10/16 16:00 Lab Results 12/10/16 12/10/16 12/10/16 Range/Units 16:00 16:00 16:00 WBC 11.7 H (3.8-10.6) k/uL RBC 4.56 (3.80-5.40) m/uL Hgb 13.9 (11.4-16.0) gm/dL Hct 43.8 (34.0-46.0) % MCV 96.0 (80.0-100.0) fL MCH 30.4 (25.0-35.0) pg MCHC 31.7 (31.0-37.0) g/dL RDW 13.4 (11.5-15.5) % Plt Count 296 (150-450) k/uL Neutrophils % 87 % Lymphocytes % 7 % Monocytes % 4 % Eosinophils % 0 % Basophils % 0 % Neutrophils # 10.2 H (1.3-7.7) k/uL Lymphocytes # 0.8 L (1.0-4.8) k/uL Monocytes # 0.4 (0-1.0) k/uL Eosinophils # 0.0 (0-0.7) k/uL Basophils # 0.0 (0-0.2) k/uL PT (9.0-12.0) sec INR (<1.1) APTT (22.0-30.0) sec D-Dimer (<0.60) mg/L FEU Sodium 133 L (137-145) mmol/L Potassium 4.5 (3.5-5.1) mmol/L Chloride 94 L (98-107) mmol/L Carbon Dioxide 31 H (22-30) mmol/L Anion Gap 8 mmol/L BUN 20 H (7-17) mg/dL Creatinine 0.80 (0.52-1.04) mg/dL Est GFR (MDRD) Af Amer >60 (>60 ml/min/1.73 sqM) Est GFR (MDRD) Non-Af >60 (>60 ml/min/1.73 sqM) Glucose 152 H (74-99) mg/dL Calcium 9.4 (8.4-10.2) mg/dL Magnesium 2.0 (1.6-2.3) mg/dL Total Bilirubin 0.1 L (0.2-1.3) mg/dL AST 25 (14-36) U/L ALT 41 (9-52) U/L Alkaline Phosphatase 76 (38-126) U/L Total Creatine Kinase 129 (30-135) U/L CK-MB (CK-2) 4.3 H* (0.0-2.4) ng/mL CK-MB (CK-2) Rel Index 3.3 Troponin I <0.012 (0.000-0.034) ng/mL NT-Pro-B Natriuret Pep pg/mL Total Protein 6.2 L (6.3-8.2) g/dL Albumin 3.9 (3.5-5.0) g/dL 12/10/16 12/10/16 Range/Units 16:00 16:00 WBC (3.8-10.6) k/uL RBC (3.80-5.40) m/uL Hgb (11.4-16.0) gm/dL Hct (34.0-46.0) % MCV (80.0-100.0) fL MCH (25.0-35.0) pg MCHC (31.0-37.0) g/dL RDW (11.5-15.5) % Plt Count (150-450) k/uL Neutrophils % % Lymphocytes % % Monocytes % % Eosinophils % % Basophils % % Neutrophils # (1.3-7.7) k/uL Lymphocytes # (1.0-4.8) k/uL Monocytes # (0-1.0) k/uL Eosinophils # (0-0.7) k/uL Basophils # (0-0.2) k/uL PT 9.4 (9.0-12.0) sec INR 0.9 (<1.1) APTT 20.5 L (22.0-30.0) sec D-Dimer 0.26 (<0.60) mg/L FEU Sodium (137-145) mmol/L Potassium (3.5-5.1) mmol/L Chloride (98-107) mmol/L Carbon Dioxide (22-30) mmol/L Anion Gap mmol/L BUN (7-17) mg/dL Creatinine (0.52-1.04) mg/dL Est GFR (MDRD) Af Amer (>60 ml/min/1.73 sqM) Est GFR (MDRD) Non-Af (>60 ml/min/1.73 sqM) Glucose (74-99) mg/dL Calcium (8.4-10.2) mg/dL Magnesium (1.6-2.3) mg/dL Total Bilirubin (0.2-1.3) mg/dL AST (14-36) U/L ALT (9-52) U/L Alkaline Phosphatase (38-126) U/L Total Creatine Kinase (30-135) U/L CK-MB (CK-2) (0.0-2.4) ng/mL CK-MB (CK-2) Rel Index Troponin I (0.000-0.034) ng/mL NT-Pro-B Natriuret Pep 52 pg/mL Total Protein (6.3-8.2) g/dL Albumin (3.5-5.0) g/dL Disposition Clinical Impression: Dyspnea, Hypertension, Hyponatremia, Hypochloremia, Hyperglycemia, Tracheobronchitis, Acute exacerbation of chronic obstructive airways disease Disposition: ADMITTED IP TO THIS HOSP Condition: Fair Time of Disposition: 17:53 Decision Date: 12/10/16 Decision Time: 17:53
[2016-12-10] MEDS ORDERED: methylPREDNISolone SOD SUCCI 125 MG/2 ML VIAL IV STA (17:55)
[2016-12-10] MEDS ORDERED: AZITHROMYCIN 500 MG in SODIUM CHLORIDE 0.9% 250 ML IVPB STA (18:00)
[2016-12-10 19:51] VITALS: BMI 23.6
[2016-12-10] MEDS: BUDESONIDE 0.5 MG/2 ML NEBU INHALATION SCH (20:01)
[2016-12-10] MEDS: IPRATROPIUM-ALBUTEROL 3 ML NEB INHALATION PRN ×2 (20:02→23:40)
[2016-12-10] MEDS: methylPREDNISolone SOD SUCCI 125 MG/2 ML VIAL IV SCH (21:55)
[2016-12-10] MEDS: LISINOPRIL 20 MG TAB PO SCH (21:56)
[2016-12-10] MEDS: NICOTINE 14MG/24HR PATCH TRANSDERM SCH (21:58)
[2016-12-11] MEDS: methylPREDNISolone SOD SUCCI 125 MG/2 ML VIAL IV SCH ×5 (00:28→23:45)
[2016-12-11] MEDS: IPRATROPIUM-ALBUTEROL 3 ML NEB INHALATION PRN ×5 (03:35→19:44)
[2016-12-11] MEDS: LEVOTHYROXINE 125 MCG TAB PO SCH (05:45)
[2016-12-11 07:06] LABS: Glucose,Whole Blood 202 mg/dL (75-99)
--- NOTE | 2016-12-11 07:51 | HP ---
DATE OF ADMISSION: CHIEF COMPLAINT: Short of breath. HISTORY OF PRESENT ILLNESS: Mrs. Castellanos is a 71-year-old female with known history of hypertension, COPD, currently an everyday smoker, came to the hospital with complaints of short of breath, which has been present for the past 3 months and getting worse the last 2 days. Patient also complained of cough with a thick sputum production. Denied any hemoptysis. More of a whitish to yellowish sputum production. Denied any fever. Denied any chest pain. Otherwise the patient denied any recent illnesses. Patient was admitted to the hospital previously and was treated for COPD exacerbation 3 months back. She states that she has not ( ) completely since that time. The patient also says that she is ALLERGIC TO PENICILLIN and does not want to take Augmentin. She says that she had rash as well as itching due to antibiotics in the form of Augmentin at that time. Otherwise denied any recent illnesses. No sick contacts at home. Patient does smoke every day. Otherwise patient is a poor historian. REVIEW OF SYSTEMS: CONSTITUTIONAL: No fever. No chills. No weakness. RESPIRATORY: Patient does have cough with sputum production and short of breath. CARDIOVASCULAR: No chest pain. Patient does have short of breath. No leg swelling. ABDOMEN: No nausea, vomiting, abdominal pain. GENITOURINARY: No dysuria. No hematuria. ENDOCRINE: No heat or cold intolerance. MUSCULOSKELETAL: No joint swelling or deformity. SKIN: Negative. NEUROLOGIC: No headache or dizziness, lightheadedness. No numbness or tingling. All other fourteen-point review of systems negative except as above. PAST MEDICAL HISTORY: Chest pain/angina, COPD, hypertension, osteoarthritis, hypothyroidism, COPD on home oxygen by nasal cannula 2 L at night p.r.n. PAST SURGICAL HISTORY: Cardiac catheterization, hysterectomy, tubal ligation, cataract surgery. PSYCHOSOCIAL HISTORY: Anxiety. SOCIAL HISTORY: Patient currently at a smoker, occasional alcohol use, denied any drugs or IVDU. FAMILY HISTORY: Mother had liver cancer and thyroid disorder. Father had cancer as well. ALLERGIES INCLUDE BACITRACIN, NEOMYCIN, POLYMYXIN, PREDNISONE. HOME MEDICATIONS: Symbicort, levothyroxine, Zestril, albuterol ipratropium, DuoNeb, aspirin, vitamin B complex. PHYSICAL EXAMINATION: A 71-year-old female lying in the bed, awake, alert and oriented x3. Appears to be in no apparent distress. VITALS: Blood pressure is 168/63, pulse is 95, respiratory rate 20, temperature afebrile, pulse ox 95% on 3 liters nasal cannula. HEENT: Atraumatic, normocephalic. Neck is supple. No JVD. CVS: S1, S2 heard. No gallop. LUNGS: Bilateral air entry decreased, wheezing positive. Nonlabored breathing. Not using accessory muscles. ABDOMEN: Soft, nontender, bowel sounds present. SUPERINTENDENT TRANSPORTATION: Alert and oriented x3. No focal deficit. EXTREMITIES: No edema. Pulses palpable bilaterally. No clubbing or cyanosis. PSYCHIATRIC: Cooperative. LABORATORY DATA: WBC 11.7, hemoglobin 13.9, platelets 296. INR is 0.9. D-dimer 0.26. Sodium 133, potassium 4.5, chloride 94, bicarb 31, BUN 20, creatinine 0.8. Troponin ( )52. ( ). IMPRESSION: 1. Short of breath secondary to acute chronic obstructive pulmonary disease exacerbation and tracheobronchitis purulent. 2. Uncontrolled hypertension. 3. Hypovolemic hyponatremia. 4. Nicotine addiction. 5. Osteoarthritis. 6. Chronic respiratory failure secondary to chronic obstructive pulmonary disease, home oxygen -dependent, hypoxic. 7. Deep venous thrombosis prophylaxis with Lovenox. DISCUSSION AND PLAN: The patient will be continued on IV steroids, DuoNeb and Pulmicort. Pulmonary has been consulted. Will continue the current management and follow up closely. Recheck labs in the morning.
[2016-12-11] MEDS: INSULIN LISPRO (humaLOG) 300 UNIT/3 ML VIAL SQ SCH ×4 (08:20→21:31)
[2016-12-11] MEDS: LISINOPRIL 20 MG TAB PO SCH ×2 (08:20→20:16)
[2016-12-11] MEDS: B COMPLEX-VIT C-VIT E-ZINC 1 EACH TAB PO SCH (08:20)
[2016-12-11] MEDS: ENOXAPARIN 40 MG/0.4 ML SYRINGE SQ SCH (08:20)
[2016-12-11] MEDS: ASPIRIN 81 MG CHEW PO SCH (08:20)
[2016-12-11] MEDS: BUDESONIDE 0.5 MG/2 ML NEBU INHALATION SCH (08:28)
[2016-12-11] MEDS ORDERED: AZITHROMYCIN 500 MG in SODIUM CHLORIDE 0.9% 250 ML IVPB SCH (09:00)
[2016-12-11] MEDS: ACETAMINOPHEN TAB 325 MG TAB PO PRN ×2 (09:42→20:17)
[2016-12-11 10:53] LABS: Basophils % (A) 0 %; CH 29.9; CHCM 30.4; Eosinophils % (A) 0 %; HCT 46.1 % (34.0-46.0); HDW 2.18; HGB 13.8 gm/dL (11.4-16.0); Hypochromasia Slight; Luc # (Auto) 0.11; Luc % (Auto) 1; Lymphocytes # (A) 0.5 k/uL (1.0-4.8); Lymphocytes % (A) 4 %; MCH 29.6 pg (25.0-35.0); MCV 98.7 fL (80.0-100.0); Mean Platelet Volume 6.9; Monocytes # (A) 0.6 k/uL (0-1.0); Monocytes % (A) 4 %; Neutrophils # (A) 12.4 k/uL (1.3-7.7); Neutrophils % (A) 91 %; RBC 4.67 m/uL (3.80-5.40); RDW 13.2 % (11.5-15.5); WBC 13.6 k/uL (3.8-10.6); WBC (Perox) 13.94
[2016-12-11 11:11] LABS: Anion Gap 9 mmol/L; Blood Urea Nitrogen 19 mg/dL (7-17); Calcium 9.5 mg/dL (8.4-10.2); Carbon Dioxide 28 mmol/L (22-30); Chloride 97 mmol/L (98-107); Glucose 211 mg/dL (74-99); Non-African American GFR(MDRD) >60 (>60 ml/min/1.73 sqM); Potassium 4.2 mmol/L (3.5-5.1); Sodium 134 mmol/L (137-145)
[2016-12-11 11:26] LABS: Glucose,Whole Blood 175 mg/dL (75-99)
--- NOTE | 2016-12-11 12:39 | CONS ---
DATE OF CONSULTATION: 71-year-old female with a history of underlying COPD. She sees my partner as her primary doctor and also has her museum exhibit designer. The patient has been on numerous courses of steroids and antibiotics. Despite that, she complains of increasing shortness of breath, cough, chest tightness, wheezing, chest congestion, and phlegm production. The phlegm is typically white, but very thick. No fever, no chills. She does have an ALLERGIC REACTION TO PENICILLIN and refused any penicillin-type antibiotics. Anyway, she is doing a bit better today than she was yesterday when she came into the emergency room. Probably not quite yet ready for discharge. Her current home medications include Symbicort, Synthroid, Zestril, ProAir HFA updrafts, aspirin, and vitamins. ALLERGIES INCLUDE BACITRACIN, NEOMYCIN, POLYMYXIN B, PREDNISONE AND AUGMENTIN WELL TRIPLE ANTIBIOTIC OINTMENT. Medical history is positive for COPD and angina, hypertension, osteoarthritis, hypothyroidism. Surgical history includes heart cath, hysterectomy and tubal ligation. She has also had cataract surgery. Social history is positive for ongoing tobacco use. Not much in the way of alcohol use. No illicit drug use. Family history is positive for liver cancer and thyroid disease. REVIEW OF SYSTEMS: CONSTITUTIONAL: Weakness. NEUROLOGIC: Negative. HEENT: Negative. CARDIOVASCULAR: Negative. PULMONARY: Shortness of breath, chest tightness, wheezing, cough, chest congestion, phlegm production. GI/: Negative. RHEUMATOLOGICAL/IMMUNOLOGIC: Negative. ENDOCRINOLOGIC: Negative. DERMATOLOGIC: Negative. Current vital signs include temperature 97.3, heart rate 96, respiratory rate 16, blood pressure 155/96, mean 115. 3 liters saturation 97%. Really appears in no acute distress. No audible wheezing. Not using accessory muscles. HEENT examination is grossly unremarkable. Mucous membranes are moist. No oral lesions. Neck is supple. Full range of motion. No adenopathy or thyromegaly. Neck veins are flat. Cardiovascular examination reveals regular rhythm and rate. Heart rate is about 90. S1, S2 normal. No S3, S4 or murmur. Lungs reveal coarse inspiratory and expiratory rhonchi. Breath sounds are diminished. There is prolongation on forced maneuver. The patient wheezes and coughs on forced maneuver. Abdomen is soft. Bowel sounds are heard. Extremities are intact. No cyanosis, clubbing, or edema. Skin without rash. Neurological examination is nonfocal. Labs are reviewed. White count 13.6. Hemoglobin and hematocrit and platelet count all normal. PT, INR normal. PTT is low at. D-dimer normal. Sodium 133, potassium 4.5, chloride 94, CO2 of 31. BUN and creatinine were 20 and 0.8. The rest of the labs look okay. Troponins were normal. N-terminal proBNP normal. Chest x-ray shows just changes of COPD. Medications will be reviewed. ASSESSMENT: 1. Chronic obstructive pulmonary disease exacerbation complicated by purulent tracheobronchitis. 2. Hypertension. 3. Hypothyroidism. PLAN: The patient will get short acting beta agonist and short acting muscarinic antagonist as well as long acting beta agonist and inhaled corticosteroids. The patient would benefit from systemic corticosteroids. Medications are reviewed. An oral antibiotic suggestions are forthcoming. Prognosis is guarded. I did counseling program leader her about the importance of smoking cessation and nicotine patch would be helpful.
[2016-12-11 14:09] LABS: Hemoglobin A1C 6.5 % (4.2-6.1)
[2016-12-11 17:01] LABS: Glucose,Whole Blood 197 mg/dL (75-99)
[2016-12-11] MEDS: NICOTINE 14MG/24HR PATCH TRANSDERM SCH (17:25)
[2016-12-11] MEDS: FORMOTEROL FUMARATE 20 MCG/2 ML NEBU INHALATION SCH (19:44)
[2016-12-11] MEDS: BUDESONIDE 1 MG/2 ML NEBU INHALATION SCH (19:44)
[2016-12-11] MEDS: CEFDINIR 300 MG CAP PO SCH (20:16)
[2016-12-11 21:50] LABS: Glucose,Whole Blood 224 mg/dL (75-99)
[2016-12-12 07:12] LABS: Glucose,Whole Blood 146 mg/dL (75-99)
[2016-12-12] MEDS: FORMOTEROL FUMARATE 20 MCG/2 ML NEBU INHALATION SCH ×2 (11:01→19:36)
[2016-12-12] MEDS: BUDESONIDE 1 MG/2 ML NEBU INHALATION SCH ×2 (11:01→19:36)
[2016-12-12] MEDS: IPRATROPIUM-ALBUTEROL 3 ML NEB INHALATION PRN ×3 (11:02→19:36)
[2016-12-12] MEDS: B COMPLEX-VIT C-VIT E-ZINC 1 EACH TAB PO SCH (11:11)
[2016-12-12] MEDS: LEVOTHYROXINE 125 MCG TAB PO SCH (11:11)
[2016-12-12] MEDS: LISINOPRIL 20 MG TAB PO SCH ×2 (11:11→21:10)
[2016-12-12] MEDS: CEFDINIR 300 MG CAP PO SCH ×2 (11:11→21:10)
[2016-12-12] MEDS: ENOXAPARIN 40 MG/0.4 ML SYRINGE SQ SCH (11:11)
[2016-12-12] MEDS: ASPIRIN 81 MG CHEW PO SCH (11:11)
[2016-12-12] MEDS: methylPREDNISolone SOD SUCCI 125 MG/2 ML VIAL IV SCH ×4 (11:11→23:28)
[2016-12-12] MEDS: INSULIN LISPRO (humaLOG) 300 UNIT/3 ML VIAL SQ SCH ×4 (11:11→21:10)
[2016-12-12 11:48] LABS: Glucose,Whole Blood 211 mg/dL (75-99)
--- NOTE | 2016-12-12 12:30 | PN ---
DATE OF SERVICE: 12/11/2016 INTERVAL HISTORY: Ms. Castellanos is a 71 -year-old female with known history of hypertension, COPD currently and every day smoker, admitted to the hospital with worsening shortness of breath, currently being treated for acute COPD exacerbation and purulent tracheobronchitis. Patient otherwise still having short of breath and cough with minimal sputum production and unable to ambulate without short of breath. Pulmonary has seen the patient. Otherwise, patient denied any complaints of fever or chills. No chest pain. REVIEW OF SYSTEMS: CONSTITUTIONAL: No fever. No chills. No weakness. RESPIRATORY: Patient does have cough with minimal sputum production and short of breath. CARDIOVASCULAR: No chest pain. The patient does have shortness of breath. No leg swelling. ABDOMEN: No nausea, vomiting or abdominal pain. GENITOURINARY: Negative. ENDOCRINE: Negative. PSYCHIATRY: Negative. ( ). SKIN: Negative. MUSCULOSKELETAL: Negative. NEUROLOGICAL: ( ). All other 14 point review of systems negative except as above. Current Medications are reviewed. PHYSICAL EXAMINATION: 71-year-old female, lying in bed comfortably, awake, alert and oriented times three. Appears to be in no apparent distress. VITALS: Blood pressure is 144/81, pulse is 97, respirations 16, temperature afebrile, pulse ox 97% on 3 L nasal cannula. HEENT: Atraumatic, normocephalic. NECK: Supple. No jugular venous distention. CARDIOVASCULAR: S1, S2. No murmurs, rubs, and no gallop. LUNGS: Bilateral air entry is present. Diminished basally and diffuse wheezing positive. Prolonged expiratory phase. Nonlabored breathing. ABDOMEN: Soft, nontender, bowel sounds present. CENTRAL NERVOUS SYSTEM: Awake, alert and oriented times three. No focal deficits. EXTREMITIES: No edema. Pulses palpable bilaterally. No clubbing or cyanosis. PSYCHIATRY: Cooperative. LABORATORY DATA: WBC 13.6, hemoglobin 13.8, platelets 294. Sodium 134, potassium 4.2, chloride 97, bicarb is 28. BUN 19, creatinine 0.6. HbA1C 6.5. Sputum culture is pending at this time. IMPRESSION: 1. Acute chronic obstructive pulmonary disease exacerbation, secondary to purulent tracheobronchitis. 2. Uncontrolled hypertension, improved now. 3. Hypovolemic hyponatremia, improved. 4. Borderline diabetes mellitus with HbA1C 6.5. 5. Nicotine addiction, on a daily basis. 6. Osteoarthritis, 7. Chronic respiratory failure hypoxic on home O2 dependent. 8. Deep venous thrombosis prophylaxis with Lovenox. DISCUSSION AND PLAN: The patient will be continued on IV steroids and antibiotics have been changed to Omnicef as per pulmonary recommendations. Follow up sputum cultures. Continue with the DuoNeb and Pulmicort. Further recommendations based on clinical course. Patient was counseled extensively for smoking cessation.
--- NOTE | 2016-12-12 13:35 | PN ---
A 71-year-old female with a history of COPD exacerbation complicated by purulent tracheobronchitis, essential hypertension, and hypothyroidism. The patient was placed on appropriate medications yesterday including a short acting beta agonist and short acting muscarinic antagonist, inhaled corticosteroid and long acting beta agonist along with systemic corticosteroids. Her chest x-ray was negative. An oral antibiotic will do. Feeling a bit better today. Less short of breath. Less chest congestion. Currently, temperature is 97.2, heart rate 78, respiratory 16, blood pressure 157/87, mean 110, 3 liters saturation 99%. Appears in no acute distress. No respiratory distress. No audible wheezing. HEENT examination is grossly unremarkable. Mucous membranes are moist. Neck is supple. Full range of motion. No adenopathy, thyromegaly or neck vein distention. Cardiovascular examination reveals regular rhythm and rate. Heart rate in the mid 70s. S1, S2 normal. No S3, S4 or murmur. Lungs reveal some expiratory wheezes and rhonchi. Breath sounds are diminished. There is prolongation. Abdomen is soft. Bowel sounds are heard. No masses or tenderness. Extremities are intact. No cyanosis, clubbing, or edema. Skin without rash. Neurologic examination is nonfocal. Lab data is reviewed. No labs from today. Chest x-ray was evaluated yesterday. Microbiology thus far is negative. Medications are reviewed. ASSESSMENT: 1. Chronic obstructive pulmonary disease exacerbation complicated by purulent tracheobronchitis. 2. Hypertension. 3. Hypothyroidism. 4. Ongoing tobacco use with nicotine addiction. PLAN: The patient is counseled about the importance of smoking cessation. She will continue on her current regimen. Will likely be in the hospital for another 1 to 2 days. No additional recommendations are made. Will continue to follow.
[2016-12-12] MEDS: ACETAMINOPHEN TAB 325 MG TAB PO PRN (14:09)
[2016-12-12] MEDS ORDERED: risperiDONE 0.25 MG TAB PO PRN (15:09)
[2016-12-12 17:13] LABS: Glucose,Whole Blood 143 mg/dL (75-99)
[2016-12-12] MEDS: NICOTINE 14MG/24HR PATCH TRANSDERM SCH (17:27)
[2016-12-12 21:07] LABS: Glucose,Whole Blood 259 mg/dL (75-99)
[2016-12-13] MEDS: IPRATROPIUM-ALBUTEROL 3 ML NEB INHALATION PRN ×4 (06:21→20:54)
[2016-12-13] MEDS: BUDESONIDE 1 MG/2 ML NEBU INHALATION SCH ×2 (06:21→20:54)
[2016-12-13] MEDS: LEVOTHYROXINE 125 MCG TAB PO SCH (06:43)
[2016-12-13] MEDS: methylPREDNISolone SOD SUCCI 125 MG/2 ML VIAL IV SCH ×4 (06:44→23:41)
[2016-12-13 07:29] LABS: Basophils % (A) 0 %; CH 30.1; CHCM 30.8; Eosinophils % (A) 0 %; HCT 47.5 % (34.0-46.0); HDW 2.16; HGB 14.5 gm/dL (11.4-16.0); Hypochromasia Slight; Luc # (Auto) 0.32; Luc % (Auto) 2; Lymphocytes # (A) 0.6 k/uL (1.0-4.8); Lymphocytes % (A) 3 %; MCHC 30.6 g/dL (31.0-37.0); MCV 98.1 fL (80.0-100.0); Monocytes # (A) 0.8 k/uL (0-1.0); Monocytes % (A) 4 %; Neutrophils # (A) 17.8 k/uL (1.3-7.7); Neutrophils % (A) 91 %; RBC 4.84 m/uL (3.80-5.40); RDW 13.1 % (11.5-15.5); WBC 19.6 k/uL (3.8-10.6); WBC (Perox) 19.61
[2016-12-13 07:29] LABS: Glucose,Whole Blood 255 mg/dL (75-99)
[2016-12-13 07:51] LABS: Anion Gap 7 mmol/L; Blood Urea Nitrogen 25 mg/dL (7-17); Calcium 9.6 mg/dL (8.4-10.2); Carbon Dioxide 36 mmol/L (22-30); Chloride 92 mmol/L (98-107); Glucose 228 mg/dL (74-99); Non-African American GFR(MDRD) >60 (>60 ml/min/1.73 sqM); Potassium 4.6 mmol/L (3.5-5.1); Sodium 135 mmol/L (137-145)
[2016-12-13] MEDS: ACETAMINOPHEN TAB 325 MG TAB PO PRN ×2 (07:55→17:20)
[2016-12-13] MEDS: INSULIN LISPRO (humaLOG) 300 UNIT/3 ML VIAL SQ SCH ×4 (07:57→21:07)
[2016-12-13] MEDS: CEFDINIR 300 MG CAP PO SCH ×2 (07:57→21:06)
[2016-12-13] MEDS: LISINOPRIL 20 MG TAB PO SCH ×2 (07:57→21:06)
[2016-12-13] MEDS: ENOXAPARIN 40 MG/0.4 ML SYRINGE SQ SCH (07:57)
[2016-12-13] MEDS: NICOTINE 14MG/24HR PATCH TRANSDERM SCH (07:58)
[2016-12-13] MEDS: ASPIRIN 81 MG CHEW PO SCH (07:58)
[2016-12-13] MEDS: B COMPLEX-VIT C-VIT E-ZINC 1 EACH TAB PO SCH (07:58)
[2016-12-13] MEDS ORDERED: INSULIN LISPRO (humaLOG) 300 UNIT/3 ML VIAL SQ ONE ×2 (08:23→12:41)
[2016-12-13] MEDS: FORMOTEROL FUMARATE 20 MCG/2 ML NEBU INHALATION SCH ×2 (08:39→20:54)
[2016-12-13] MEDS: ALPRAZolam 0.25 MG TAB PO PRN ×3 (08:57→21:06)
--- NOTE | 2016-12-13 11:16 | PN ---
DATE OF SERVICE: 12/12/2016 INTERVAL HISTORY: Ms. Castellanos is a 71 -year-old female with known history of hypertension, COPD. Currently an everyday smoker, admitted to the hospital with increasing shortness of breath, currently being treated for acute chronic obstructive pulmonary disease exacerbation and purulent tracheobronchitis. The patient is still persistent having significant short of breath and wheezing and a cough, which is improved now. Otherwise, the patient seems to be delirious in the morning and talking to herself and most likely secondary to steroid induced. No fever. No chills. Otherwise, no acute overnight issues. No complaints of chest pain. No worsening shortness of breath. No nausea or vomiting or abdominal pain. Patient is tolerating p.o. diet. No headache or dizziness or lightheadedness. All other review of systems negative except as above. Current medications are reviewed. 71 -year-old male lying in bed comfortably. Awake, alert and oriented x3, appears to be in no apparent distress. VITALS: Blood pressure is 129/69, pulse is 82, respiratory rate 18, temperature afebrile, pulse ox 100% on 2 liters nasal cannula. HEENT: Atraumatic, normocephalic. Neck is supple. No JVD. CVS: S1, S2 heard. No murmurs, no gallop, no rub. LUNGS: Bilateral air entry is present. Diffuse wheezing positive and diminished breath sounds basally. Nonlabored breathing. ABDOMEN: Soft, nontender. Bowel sounds present. CENTRAL NERVOUS SYSTEM: Alert and oriented times three. No focal deficit. EXTREMITIES: No edema. Pulses palpable bilaterally. No Clubbing or cyanosis. PSYCHIATRIC: Cooperative, delirious. LABORATORY DATA: Reviewed. IMPRESSION: 1. Acute chronic obstructive pulmonary disease exacerbation secondary to purulent tracheobronchitis. 2. Uncontrolled hypertension initially improved now. 3. Hypovolemic hyponatremia, improved. 4. Borderline diabetes mellitus with HbA1C of 6.5. 5. Nicotine addiction smokes on a daily basis. 6. Osteoarthritis. 7. Chronic respiratory failure on home oxygen-dependent. 8. Mild delirious, delirium likely due to steroids. 9. Deep venous thrombosis prophylaxis with Lovenox. DISCUSSION AND PLAN: The patient will be continued on IV steroids and breathing treatments. Continue with antibiotics in the form of Omnicef as per pulmonary recommendations. Follow up sputum culture report. Continue the current management and further recommendations based on clinical course. Anticipate discharge in the next 1 to 2 days with more clinical movement.
[2016-12-13 12:35] LABS: Glucose,Whole Blood 323 mg/dL (75-99)
[2016-12-13] MEDS: INSULIN GLARGINE 100 UNIT/ML 10 ML VIAL SQ SCH (13:02)
[2016-12-13 17:22] LABS: Glucose,Whole Blood 196 mg/dL (75-99)
--- NOTE | 2016-12-13 18:31 | P.PN ---
Subjective 71-year-old female patient with known history of advanced COPD, oxygen dependent maintained on Symbicort on outpatient basis. The patient presented to the hospital because of worsening shortness of breath. The patient had received several treatment of antibiotics and steroids on outpatient basis to no avail. The patient continued to have shortness of breath, cough, chest tightness, chest congestion and sputum production. The patient is currently admitted to the hospital. The patient was seen in consultation earlier and today I am seeing in follow-up. Unfortunately she was still smoking up to her current hospitalization. She has hypertension and hypothyroidism as comorbid conditions. Objective - Vital Signs Vital signs: Vital Signs Temp 97.7 F 12/13/16 15:00 Pulse 104 H 12/13/16 16:58 Resp 16 12/13/16 16:00 BP 158/99 12/13/16 15:00 Pulse Ox 97 12/13/16 15:00 Intake & Output 12/12/16 12/13/16 12/13/16 18:59 06:59 18:59 Intake Total 1020 120 Balance 1020 120 Intake: Oral 1020 120 Other: Voiding Method Toilet Bedside Commode # Voids 2 2 - Exam Head exam was generally normal. There was no scleral icterus or corneal arcus. Mucous membranes were moist.Neck was supple and without jugular venous distension, thyromegaly, or carotid bruits. Carotids were easily palpable bilaterally. There was no adenopathy. Lung sounds are diminished bilaterally nearly signed in the lung bases along with that there is diffuse expiratory wheezes throughout the lung bauman and prolongation of expiratory phase of breathing.Cardiac exam revealed the PMI to be normally situated and sized. The rhythm was regular and no extrasystoles were noted during several minutes of auscultation. The first and second heart sounds were normal and physiologic splitting of the second heart sound was noted. There were no murmurs, rubs, clicks, or gallops.Abdominal exam revealed normal bowel sounds. The abdomen was soft, non-tender, and without masses, organomegaly, or appreciable enlargement of the abdominal aorta. - Labs CBC & Chem 7: 12/13/16 06:54 12/13/16 06:54 Labs: Abnormal Lab Results - Last 24 Hours (Table) 12/12/16 12/13/16 12/13/16 Range/Units 21:00 06:54 06:54 WBC 19.6 H (3.8-10.6) k/uL Hct 47.5 H (34.0-46.0) % MCHC 30.6 L (31.0-37.0) g/dL Neutrophils # 17.8 H (1.3-7.7) k/uL Lymphocytes # 0.6 L (1.0-4.8) k/uL Sodium 135 L (137-145) mmol/L Chloride 92 L (98-107) mmol/L Carbon Dioxide 36 H (22-30) mmol/L BUN 25 H (7-17) mg/dL Glucose 228 H (74-99) mg/dL POC Glucose (mg/dL) 259 H (75-99) mg/dL 12/13/16 12/13/16 12/13/16 Range/Units 07:03 12:29 17:15 WBC (3.8-10.6) k/uL Hct (34.0-46.0) % MCHC (31.0-37.0) g/dL Neutrophils # (1.3-7.7) k/uL Lymphocytes # (1.0-4.8) k/uL Sodium (137-145) mmol/L Chloride (98-107) mmol/L Carbon Dioxide (22-30) mmol/L BUN (7-17) mg/dL Glucose (74-99) mg/dL POC Glucose (mg/dL) 255 H 323 H 196 H (75-99) mg/dL Microbiology - Last 24 Hours (Table) 12/10/16 16:00 Blood Culture - Preliminary Blood No Growth after 48 hours Assessment and Plan Plan: Assessment 1 acute COPD exacerbation/purulent tracheal bronchitis 2 advanced COPD with chronic hypoxic respiratory failure at baseline 3 smoker 4 hypertension 5 hypothyroidism 6 skeletal chest wall pain secondary to cough and shortness of breath 7 increased anxiety 8 steroid-induced hyperglycemia Plan Continue the high-dose systemic steroids. Continue the bronchodilators. Continue Pulmicort and Perforomist neb last treatment [id number]. Add Xanax for anxiety. Add Lantus 10 units for tighter blood sugar control along with Humalog every before meals and at bedtime. Repeat chest x-ray in the morning. We'll continue to follow.
[2016-12-13 20:38] LABS: Glucose,Whole Blood 214 mg/dL (75-99)
[2016-12-14] MEDS: LEVOTHYROXINE 125 MCG TAB PO SCH (06:43)
[2016-12-14] MEDS: methylPREDNISolone SOD SUCCI 125 MG/2 ML VIAL IV SCH ×4 (06:43→23:11)
[2016-12-14 07:38] LABS: Glucose,Whole Blood 163 mg/dL (75-99)
[2016-12-14] MEDS: IPRATROPIUM-ALBUTEROL 3 ML NEB INHALATION PRN ×4 (07:46→20:05)
[2016-12-14] MEDS: BUDESONIDE 1 MG/2 ML NEBU INHALATION SCH ×2 (07:46→20:05)
[2016-12-14] MEDS: FORMOTEROL FUMARATE 20 MCG/2 ML NEBU INHALATION SCH ×2 (07:46→20:05)
[2016-12-14] MEDS: LISINOPRIL 20 MG TAB PO SCH ×2 (08:16→21:36)
[2016-12-14] MEDS: INSULIN LISPRO (humaLOG) 300 UNIT/3 ML VIAL SQ SCH ×4 (08:16→21:36)
[2016-12-14] MEDS: ENOXAPARIN 40 MG/0.4 ML SYRINGE SQ SCH (08:16)
[2016-12-14] MEDS: CEFDINIR 300 MG CAP PO SCH ×2 (08:17→21:35)
[2016-12-14] MEDS: INSULIN GLARGINE 100 UNIT/ML 10 ML VIAL SQ SCH (08:17)
[2016-12-14] MEDS: B COMPLEX-VIT C-VIT E-ZINC 1 EACH TAB PO SCH (08:18)
[2016-12-14] MEDS: ASPIRIN 81 MG CHEW PO SCH (08:18)
[2016-12-14] MEDS: ACETAMINOPHEN TAB 325 MG TAB PO PRN (08:19)
[2016-12-14] MEDS: ALPRAZolam 0.25 MG TAB PO PRN ×2 (08:26→22:05)
--- NOTE | 2016-12-14 10:50 | XR ---
EXAMINATION TYPE: XR chest 2V DATE OF EXAM: 12/14/2016 HISTORY: sob/copd. REFERENCE: Previous study dated 12/10/2016. FINDINGS: The lungs are overinflated. There is a calcified granuloma at the right lung base. Lungs ot herwise clear. Pleural spaces are clear. The heart is not enlarged. IMPRESSION: 1. COPD. 2. EVIDENCE OF OLD GRANULOMATOUS DISEASE.
--- NOTE | 2016-12-14 11:54 | P.PN ---
Subjective 71-year-old female patient with known history of advanced COPD, oxygen dependent maintained on Symbicort on outpatient basis. The patient presented to the hospital because of worsening shortness of breath. The patient had received several treatment of antibiotics and steroids on outpatient basis to no avail. The patient continued to have shortness of breath, cough, chest tightness, chest congestion and sputum production. The patient is currently admitted to the hospital. The patient was seen in consultation earlier and today I am seeing in follow-up. Unfortunately she was still smoking up to her current hospitalization. She has hypertension and hypothyroidism as comorbid conditions. On 12/14/2016 I'm seeing this patient in follow-up H is feeling slightly better compared to yesterday. She is less anxious. Blood sugars under better control. She remains on IV Solu-Medrol. She is also on probenecid around-the- clock. She was having some chest soreness and pain yesterday which seems to have also subsided. The follow-up chest x-rays to follow today. No pleurisy. No hemoptysis. No angina. No fever or chills. Objective - Vital Signs Vital signs: Vital Signs Temp 97 F L 12/14/16 07:00 Pulse 92 12/14/16 08:14 Resp 18 12/14/16 07:00 BP 192/107 12/14/16 07:00 Pulse Ox 100 12/14/16 07:48 Intake & Output 12/13/16 12/14/16 12/14/16 18:59 06:59 18:59 Intake Total 600 1640 Balance 600 1640 Weight 66.5 kg Intake: Oral 600 1640 Other: Voiding Method Toilet Bedside Commode # Voids 1 - Exam Head exam was generally normal. There was no scleral icterus or corneal arcus. Mucous membranes were moist.Neck was supple and without jugular venous distension, thyromegaly, or carotid bruits. Carotids were easily palpable bilaterally. There was no adenopathy. Lung sounds are diminished bilaterally nearly signed in the lung bases along with that there is diffuse expiratory wheezes throughout the lung bauman and prolongation of expiratory phase of breathing.Cardiac exam revealed the PMI to be normally situated and sized. The rhythm was regular and no extrasystoles were noted during several minutes of auscultation. The first and second heart sounds were normal and physiologic splitting of the second heart sound was noted. There were no murmurs, rubs, clicks, or gallops.Abdominal exam revealed normal bowel sounds. The abdomen was soft, non-tender, and without masses, organomegaly, or appreciable enlargement of the abdominal aorta. - Labs CBC & Chem 7: 12/13/16 06:54 12/13/16 06:54 Labs: Abnormal Lab Results - Last 24 Hours (Table) 12/13/16 12/13/16 12/13/16 Range/Units 12:29 17:15 20:33 POC Glucose (mg/dL) 323 H 196 H 214 H (75-99) mg/dL 12/14/16 Range/Units 07:16 POC Glucose (mg/dL) 163 H (75-99) mg/dL Microbiology - Last 24 Hours (Table) 12/10/16 16:00 Blood Culture - Preliminary Blood No Growth after 72 hours Assessment and Plan Plan: Assessment 1 acute COPD exacerbation/purulent tracheal bronchitis, still symptomatic although there is some improvement compared to yesterday. 2 advanced COPD with chronic hypoxic respiratory failure at baseline 3 smoker 4 hypertension 5 hypothyroidism 6 skeletal chest wall pain secondary to cough and shortness of breath 7 increased anxiety 8 steroid-induced hyperglycemia Plan Continue the high-dose systemic steroids. Continue the bronchodilators. Continue Pulmicort and Perforomist neb last treatment [id number]. Repeat chest x-ray. We'll continue to follow make further recommendations based on her progress.
[2016-12-14 12:01] LABS: Glucose,Whole Blood 210 mg/dL (75-99)
[2016-12-14] MEDS: NICOTINE 14MG/24HR PATCH TRANSDERM SCH (13:04)
[2016-12-14 17:21] LABS: Glucose,Whole Blood 130 mg/dL (75-99)
[2016-12-14 20:58] LABS: Glucose,Whole Blood 205 mg/dL (75-99)
[2016-12-15] MEDS: LEVOTHYROXINE 125 MCG TAB PO SCH (06:31)
[2016-12-15] MEDS: methylPREDNISolone SOD SUCCI 125 MG/2 ML VIAL IV SCH ×4 (06:31→23:44)
[2016-12-15 07:15] LABS: Glucose,Whole Blood 152 mg/dL (75-99)
[2016-12-15] MEDS: BUDESONIDE 1 MG/2 ML NEBU INHALATION SCH ×2 (07:34→19:56)
[2016-12-15] MEDS: FORMOTEROL FUMARATE 20 MCG/2 ML NEBU INHALATION SCH ×2 (07:34→19:56)
[2016-12-15] MEDS: IPRATROPIUM-ALBUTEROL 3 ML NEB INHALATION PRN ×4 (07:34→19:56)
[2016-12-15] MEDS: B COMPLEX-VIT C-VIT E-ZINC 1 EACH TAB PO SCH (07:56)
[2016-12-15] MEDS: ASPIRIN 81 MG CHEW PO SCH (07:56)
[2016-12-15] MEDS: LISINOPRIL 20 MG TAB PO SCH ×2 (07:56→20:37)
[2016-12-15] MEDS: INSULIN GLARGINE 100 UNIT/ML 10 ML VIAL SQ SCH (07:56)
[2016-12-15] MEDS: CEFDINIR 300 MG CAP PO SCH ×2 (07:56→20:36)
[2016-12-15] MEDS: ENOXAPARIN 40 MG/0.4 ML SYRINGE SQ SCH (07:56)
[2016-12-15] MEDS: INSULIN LISPRO (humaLOG) 300 UNIT/3 ML VIAL SQ SCH ×4 (08:52→21:45)
[2016-12-15 12:29] LABS: Glucose,Whole Blood 123 mg/dL (75-99)
[2016-12-15] MEDS: ALPRAZolam 0.25 MG TAB PO PRN (15:33)
--- NOTE | 2016-12-15 15:40 | P.PN ---
Subjective 71-year-old female patient with known history of advanced COPD, oxygen dependent maintained on Symbicort on outpatient basis. The patient presented to the hospital because of worsening shortness of breath. The patient had received several treatment of antibiotics and steroids on outpatient basis to no avail. The patient continued to have shortness of breath, cough, chest tightness, chest congestion and sputum production. The patient is currently admitted to the hospital. The patient was seen in consultation earlier and today I am seeing in follow-up. Unfortunately she was still smoking up to her current hospitalization. She has hypertension and hypothyroidism as comorbid conditions. On 12/14/2016 I'm seeing this patient in follow-up H is feeling slightly better compared to yesterday. She is less anxious. Blood sugars under better control. She remains on IV Solu-Medrol. She is also on probenecid around-the- clock. She was having some chest soreness and pain yesterday which seems to have also subsided. The follow-up chest x-rays to follow today. No pleurisy. No hemoptysis. No angina. No fever or chills. On 12/15/2016 the patient is feeling better. She anxiety breathing is back to her baseline. She is recovering from acute COPD exacerbation. No new complaints for now. She'll be switched to prednisone burst taper. She is on DuoNeb about treatments around the clock. She is also taken Lantus insulin along with a rule out for blood sugar control. She is on Omnicef 300 mg by mouth twice a day as a broad-spectrum antibiotic coverage. She is on oxygen. No chest pain. No significant cough sputum production. She is on a nicotine patch. Objective - Vital Signs Vital signs: Vital Signs Temp 97.8 F 12/15/16 15:00 Pulse 96 12/15/16 15:25 Resp 16 12/15/16 15:00 BP 160/87 12/15/16 15:00 Pulse Ox 95 12/15/16 15:00 Intake & Output 12/14/16 12/15/16 12/15/16 18:59 06:59 18:59 Intake Total 480 500 Balance 480 500 Weight 66.5 kg Intake: Oral 480 500 Other: Voiding Method Toilet Bedside Commode # Voids 2 1 1 # Bowel Movements 2 - Exam Head exam was generally normal. There was no scleral icterus or corneal arcus. Mucous membranes were moist.Neck was supple and without jugular venous distension, thyromegaly, or carotid bruits. Carotids were easily palpable bilaterally. There was no adenopathy. Lung sounds are diminished bilaterally nearly signed in the lung bases along with that there is diffuse expiratory wheezes throughout the lung bauman and prolongation of expiratory phase of breathing.Cardiac exam revealed the PMI to be normally situated and sized. The rhythm was regular and no extrasystoles were noted during several minutes of auscultation. The first and second heart sounds were normal and physiologic splitting of the second heart sound was noted. There were no murmurs, rubs, clicks, or gallops.Abdominal exam revealed normal bowel sounds. The abdomen was soft, non-tender, and without masses, organomegaly, or appreciable enlargement of the abdominal aorta. - Labs CBC & Chem 7: 12/13/16 06:54 12/13/16 06:54 Labs: Abnormal Lab Results - Last 24 Hours (Table) 12/14/16 12/14/16 12/15/16 Range/Units 17:16 20:53 07:13 POC Glucose (mg/dL) 130 H 205 H 152 H (75-99) mg/dL 12/15/16 Range/Units 12:25 POC Glucose (mg/dL) 123 H (75-99) mg/dL Microbiology - Last 24 Hours (Table) 12/10/16 16:00 Blood Culture - Preliminary Blood No Growth after 96 hours Assessment and Plan Plan: Assessment 1 acute COPD exacerbation/purulent tracheal bronchitis,Improved 2 advanced COPD with chronic hypoxic respiratory failure at baseline 3 smoker 4 hypertension 5 hypothyroidism 6 skeletal chest wall pain secondary to cough and shortness of breath 7 increased anxiety 8 steroid-induced hyperglycemia Plan The patient can be discharged home on Omnicef, prednisone burst taper, Symbicort as maintenance, DuoNeb neb estimates [id number], nicotine patch , smoking cessation counseling was done, we'll continue to follow make further recommendations on outpatient basis. Addendum of the evaluation the patient had some fullness in her left supraclavicular area. However chest x-ray was essentially consistent with COPD there was no evidence of any neck or chest lesions or masses or opacities. This will be further followed up on outpatient basis by Dr. Carlson.
[2016-12-15 17:27] LABS: Glucose,Whole Blood 220 mg/dL (75-99)
[2016-12-15] MEDS: NICOTINE 14MG/24HR PATCH TRANSDERM SCH (17:46)
[2016-12-15 21:02] LABS: Glucose,Whole Blood 268 mg/dL (75-99)
--- NOTE | 2016-12-15 23:52 | PN ---
DATE OF SERVICE: 12/15/2016 INTERVAL HISTORY: Ms. Amada Castellanos is a 71-year-old female with a history of hypertension, admitted to the hospital with worsening shortness of breath and currently purulent tracheobronchitis. Clinically wheezing and air entry ( ) clinically much improved. The patient ( ). Otherwise, patient ( ) as well. ( ) discharge in the next 24 hours ( ). abdominal pain ( ) Current medications ( ) [id number] female lying in the bed comfortably. Awake, alert, oriented x3. Appears to be in no distress. VITALS: Blood pressure is 173/88. Pulse is 120. Respiratory rate 18, temperature afebrile, pulse ox 98% on 2 L nasal cannula. HEENT: Atraumatic ( ). NECK: ( ) S1, S2 heard. ( ) LUNGS: Bilateral air entry is present. The patient does have decreased air entry , improved compared to yesterday. Patient has expiratory wheezing, non-labored breathing. ABDOMEN: Soft, non-tender. Bowel sounds are present. GAS METER CHECKER: Awake, alert, oriented x3. No focal deficit. EXTREMITIES: No edema. Pulses palpable bilaterally. LABORATORY DATA: Reviewed. IMPRESSION: 1. Acute chronic obstructive pulmonary disease exacerbation secondary to purulent tracheobronchitis. 2. Uncontrolled hypertension initially; improved now. 3. Hypovolemic hyponatremia, improved. 4. Borderline diabetes mellitus; hemoglobin A1c of 6.5. 5. Nicotine addiction; smokes on a daily basis; counseled. 6. Osteoarthritis. 7. Chronic obstructive pulmonary disease, oxygen-dependent, with home oxygen. 8. Mild delirium, improved. ( ) 9. Deep venous thrombosis prophylaxis with Lovenox. DISCUSSION AND PLAN: ( ) and breathing treatments and antibiotics and follow up closely ( ). Anxiety improved as well. Anticipate discharge in the next 24 hours. More clinical improvement at the time of dictation. SUKUMAR
[2016-12-16] MEDS: methylPREDNISolone SOD SUCCI 125 MG/2 ML VIAL IV SCH ×3 (06:26→17:56)
[2016-12-16] MEDS: LEVOTHYROXINE 125 MCG TAB PO SCH (06:26)
[2016-12-16 07:02] LABS: Glucose,Whole Blood 148 mg/dL (75-99)
[2016-12-16] MEDS: IPRATROPIUM-ALBUTEROL 3 ML NEB INHALATION PRN ×3 (07:32→16:00)
[2016-12-16] MEDS: FORMOTEROL FUMARATE 20 MCG/2 ML NEBU INHALATION SCH (07:32)
[2016-12-16] MEDS: BUDESONIDE 1 MG/2 ML NEBU INHALATION SCH (07:33)
[2016-12-16] MEDS: INSULIN LISPRO (humaLOG) 300 UNIT/3 ML VIAL SQ SCH ×3 (07:59→17:55)
[2016-12-16] MEDS: ASPIRIN 81 MG CHEW PO SCH (08:00)
[2016-12-16] MEDS: INSULIN GLARGINE 100 UNIT/ML 10 ML VIAL SQ SCH (08:01)
[2016-12-16] MEDS: ENOXAPARIN 40 MG/0.4 ML SYRINGE SQ SCH (08:01)
[2016-12-16] MEDS: B COMPLEX-VIT C-VIT E-ZINC 1 EACH TAB PO SCH (08:01)
[2016-12-16] MEDS: CEFDINIR 300 MG CAP PO SCH (08:01)
[2016-12-16] MEDS: LISINOPRIL 20 MG TAB PO SCH (08:02)
[2016-12-16] MEDS: ALPRAZolam 0.25 MG TAB PO PRN ×2 (08:02→17:56)
[2016-12-16 08:20] LABS: Basophils % (A) 0 %; CH 29.4; CHCM 31.2; Eosinophils % (A) 0 %; HCT 48.8 % (34.0-46.0); HDW 2.15; HGB 15.5 gm/dL (11.4-16.0); Luc # (Auto) 0.26; Luc % (Auto) 2; Lymphocytes # (A) 0.5 k/uL (1.0-4.8); Lymphocytes % (A) 3 %; MCH 30.2 pg (25.0-35.0); MCHC 31.9 g/dL (31.0-37.0); MCV 94.7 fL (80.0-100.0); Mean Platelet Volume 6.7; Monocytes # (A) 0.6 k/uL (0-1.0); Monocytes % (A) 4 %; Neutrophils % (A) 91 %; RBC 5.15 m/uL (3.80-5.40); RDW 12.8 % (11.5-15.5); WBC 15.3 k/uL (3.8-10.6); WBC (Perox) 16.03
[2016-12-16 08:32] LABS: Anion Gap 7 mmol/L; Blood Urea Nitrogen 31 mg/dL (7-17); Calcium 9.7 mg/dL (8.4-10.2); Carbon Dioxide 37 mmol/L (22-30); Chloride 89 mmol/L (98-107); Glucose 166 mg/dL (74-99); Non-African American GFR(MDRD) >60 (>60 ml/min/1.73 sqM); Potassium 5.2 mmol/L (3.5-5.1); Sodium 133 mmol/L (137-145)
[2016-12-16 12:31] LABS: Glucose,Whole Blood 163 mg/dL (75-99)
--- NOTE | 2016-12-16 16:14 | P.PN ---
Subjective 71-year-old female patient with known history of advanced COPD, oxygen dependent maintained on Symbicort on outpatient basis. The patient presented to the hospital because of worsening shortness of breath. The patient had received several treatment of antibiotics and steroids on outpatient basis to no avail. The patient continued to have shortness of breath, cough, chest tightness, chest congestion and sputum production. The patient is currently admitted to the hospital. The patient was seen in consultation earlier and today I am seeing in follow-up. Unfortunately she was still smoking up to her current hospitalization. She has hypertension and hypothyroidism as comorbid conditions. On 12/14/2016 I'm seeing this patient in follow-up H is feeling slightly better compared to yesterday. She is less anxious. Blood sugars under better control. She remains on IV Solu-Medrol. She is also on probenecid around-the- clock. She was having some chest soreness and pain yesterday which seems to have also subsided. The follow-up chest x-rays to follow today. No pleurisy. No hemoptysis. No angina. No fever or chills. On 12/15/2016 the patient is feeling better. She anxiety breathing is back to her baseline. She is recovering from acute COPD exacerbation. No new complaints for now. She'll be switched to prednisone burst taper. She is on DuoNeb about treatments around the clock. She is also taken Lantus insulin along with a rule out for blood sugar control. She is on Omnicef 300 mg by mouth twice a day as a broad-spectrum antibiotic coverage. She is on oxygen. No chest pain. No significant cough sputum production. She is on a nicotine patch. On I'm seeing this patient in follow-up. The patient was supposed to go home yesterday however the discharge process that the Lasix to late evening and the patient did not fit comfortable going home. Based on that she'll be discharged home today. She does have some increased fullness in the left supraclavicular area which is a soft tissue swelling and there is no lesions or masses felt. She'll be going home and she'll be utilizing a prednisone burst taper, routine bronchodilators, Omnicef, and oxygen and guaifenesin for cough and congestion. Objective - Vital Signs Vital signs: Vital Signs Temp 97.5 F L 12/16/16 07:00 Pulse 90 12/16/16 16:00 Resp 18 12/16/16 07:00 BP 156/96 12/16/16 07:00 Pulse Ox 99 12/16/16 07:00 Intake & Output 12/15/16 12/16/16 12/16/16 18:59 06:59 18:59 Intake Total 220 Balance 220 Intake: Oral 220 Other: # Voids 1 1 3 - Exam Head exam was generally normal. There was no scleral icterus or corneal arcus. Mucous membranes were moist.Neck was supple and without jugular venous distension, thyromegaly, or carotid bruits. Carotids were easily palpable bilaterally. There was no adenopathy. Lung sounds are diminished bilaterally nearly signed in the lung bases along with that there is diffuse expiratory wheezes throughout the lung bauman and prolongation of expiratory phase of breathing.Cardiac exam revealed the PMI to be normally situated and sized. The rhythm was regular and no extrasystoles were noted during several minutes of auscultation. The first and second heart sounds were normal and physiologic splitting of the second heart sound was noted. There were no murmurs, rubs, clicks, or gallops.Abdominal exam revealed normal bowel sounds. The abdomen was soft, non-tender, and without masses, organomegaly, or appreciable enlargement of the abdominal aorta. - Labs CBC & Chem 7: 12/16/16 08:05 12/16/16 08:05 Labs: Abnormal Lab Results - Last 24 Hours (Table) 12/15/16 12/15/16 12/16/16 Range/Units 17:23 20:57 06:54 WBC (3.8-10.6) k/uL Hct (34.0-46.0) % Neutrophils # (1.3-7.7) k/uL Lymphocytes # (1.0-4.8) k/uL Sodium (137-145) mmol/L Potassium (3.5-5.1) mmol/L Chloride (98-107) mmol/L Carbon Dioxide (22-30) mmol/L BUN (7-17) mg/dL Glucose (74-99) mg/dL POC Glucose (mg/dL) 220 H 268 H 148 H (75-99) mg/dL 12/16/16 12/16/16 12/16/16 Range/Units 08:05 08:05 12:17 WBC 15.3 H (3.8-10.6) k/uL Hct 48.8 H (34.0-46.0) % Neutrophils # 14.0 H (1.3-7.7) k/uL Lymphocytes # 0.5 L (1.0-4.8) k/uL Sodium 133 L (137-145) mmol/L Potassium 5.2 H (3.5-5.1) mmol/L Chloride 89 L (98-107) mmol/L Carbon Dioxide 37 H (22-30) mmol/L BUN 31 H (7-17) mg/dL Glucose 166 H (74-99) mg/dL POC Glucose (mg/dL) 163 H (75-99) mg/dL Microbiology - Last 24 Hours (Table) 12/10/16 16:00 Blood Culture - Preliminary Blood No Growth after 120 hours Assessment and Plan Plan: Assessment 1 acute COPD exacerbation/purulent tracheal bronchitis,Improved 2 advanced COPD with chronic hypoxic respiratory failure at baseline 3 smoker 4 hypertension 5 hypothyroidism 6 skeletal chest wall pain secondary to cough and shortness of breath 7 increased anxiety 8 steroid-induced hyperglycemia Plan The patient can be discharged home on Omnicef, prednisone burst taper, Symbicort as maintenance, DuoNeb neb estimates [id number], nicotine patch , smoking cessation counseling was done, we'll continue to follow make further recommendations on outpatient basis. The patient be also taking guaifenesin 400 mg twice a day. Will follow-up in the office.
[2016-12-16 16:18] VITALS: BP 148/96; RESP 20; TEMP 97.4
[2016-12-16 16:58] LABS: Glucose,Whole Blood 189 mg/dL (75-99)
[2016-12-16 17:24] VITALS: PULSE 97
[2016-12-16] MEDS: NICOTINE 14MG/24HR PATCH TRANSDERM SCH (17:57)
--- NOTE | 2016-12-17 12:17 | PN ---
DATE OF SERVICE: 12/14/16 INTERVAL HISTORY: Ms. Castellanos is a 71 year old female with known history of hypertension, COPD and currently everyday smoker, admitted to the hospital with worsening shortness of breath, currently being treated for acute COPD exacerbation and purulent tracheobronchitis. Otherwise, the patient breathing status slightly improved today. Still having significant wheezing and was able to sleep better last night. The patient also says that she was coughing up thick secretions. No fever. No chills. No chest pain. No worsening short of breath. No nausea or vomiting, or abdominal pain. No diarrhea or dysuria. All other fourteen point review of systems negative except as above. Current medications are reviewed. PHYSICAL EXAMINATION: 71 year old female lying in bed comfortably. Awake, alert and oriented times three. Appears to be in no apparent distress. Vitals: Blood pressure is 159/86. Pulse 106, respiration 18, temperature afebrile. Temperature 95% on 2 L nasal cannula. HEENT: Atraumatic, normocephalic. NECK: Supple. No JVD. CVS: S1, S2 heard. No murmurs. LUNGS: Bilateral diminished air entry and diffuse wheezing positive. Nonlabored breathing. ABDOMEN: Soft, nontender. Bowel sounds present. AUTISM SPECIALIST: Alert and oriented times three. No focal deficits. EXTREMITIES: No edema. Pulses palpable bilaterally. No clubbing or cyanosis. PSYCHIATRY: Cooperative. LABORATORY DATA: Reviewed. IMPRESSION: 1. Acute chronic obstructive pulmonary disease exacerbation secondary to purulent tracheobronchitis. 2. Uncontrolled hypertension initially on admission, improved now. 3. Hypovolemic hyponatremia. 4. Advanced chronic obstructive pulmonary disease, home oxygen dependent. 5. Chronic respiratory failure. 6. Borderline diabetes mellitus, HbA1c of 6.5. 7. Hypoglycemia, secondary to steroids. 8. Nicotine addiction, smoking on a daily basis. 9. Osteoarthritis. 10. Delirium likely due to steroids, improved now. 11. Deep vein thrombosis prophylaxis with Lovenox. DISCUSSION AND PLAN: The patient will be continued on IV steroids and DuoNeb and continue antibiotics in the form of Omnicef. Continue to follow closely. Pulmonary is on board. Further recommendations based on clinical course. MTDD
== END 2016-12-16 18:58 | disposition home or self-care (01) | DRG 191 ==
LOC: EC 15:48 → 4MS4W 17:56
PROVIDERS: ADMIT Hospitalist; ATTEND Hospitalist
DX: J44.0 Chronic obstructive pulmonary disease with (acute) lower respiratory infection (principal); E87.1 Hypo-osmolality and hyponatremia; J96.11 Chronic respiratory failure with hypoxia; F19.921 Other psychoactive substance use, unspecified with intoxication with delirium; Z99.81 Dependence on supplemental oxygen; J44.1 Chronic obstructive pulmonary disease with (acute) exacerbation; I10 Essential (primary) hypertension; F17.200 Nicotine dependence, unspecified, uncomplicated; J20.9 Acute bronchitis, unspecified; T38.0X5A Adverse effect of glucocorticoids and synthetic analogues, initial encounter; M19.91 Primary osteoarthritis, unspecified site; E03.9 Hypothyroidism, unspecified; F41.9 Anxiety disorder, unspecified; Z88.0 Allergy status to penicillin; Z98.49 Cataract extraction status, unspecified eye; R73.03 Prediabetes; Z90.710 Acquired absence of both cervix and uterus; Z79.82 Long term (current) use of aspirin; Z79.51 Long term (current) use of inhaled steroids; Z79.899 Other long term (current) drug therapy
CPT/HCPCS: 36415; 71020; 80048; 80053; 82550; 82553; 83036; 83605; 83735; 83880; 84484; 85025; 85379; 85610; 85730; 87040; 93005; 94640; 94760; 96361; 96365; 96367; 96375; 99285

== ENCOUNTER 2017-01-03 18:19 | Observation (INO) | payer MEDICARE, BC ==
[2017-01-03] MEDS ORDERED: methylPREDNISolone SOD SUCCI 125 MG/2 ML VIAL IV STA (19:58)
[2017-01-03] MEDS ORDERED: IPRATROPIUM 0.5 MG/2.5 ML NEBU INHALATION STA (19:58)
[2017-01-03] MEDS ORDERED: ALBUTEROL NEBULIZED 2.5 MG/3 ML INHALATION STA (19:58)
[2017-01-03 20:18] LABS: Basophils % (A) 0 %; CH 30.4; CHCM 32.3; Eosinophils % (A) 0 %; HCT 39.6 % (34.0-46.0); HDW 2.23; HGB 12.7 gm/dL (11.4-16.0); Luc # (Auto) 0.26; Luc % (Auto) 2; Lymphocytes # (A) 0.8 k/uL (1.0-4.8); Lymphocytes % (A) 6 %; MCH 30.3 pg (25.0-35.0); MCHC 32.1 g/dL (31.0-37.0); MCV 94.5 fL (80.0-100.0); Monocytes # (A) 0.4 k/uL (0-1.0); Monocytes % (A) 3 %; Neutrophils # (A) 11.8 k/uL (1.3-7.7); Neutrophils % (A) 89 %; RBC 4.19 m/uL (3.80-5.40); RDW 13.5 % (11.5-15.5); WBC 13.3 k/uL (3.8-10.6); WBC (Perox) 12.67
[2017-01-03 20:24] LABS: ALT 44 U/L (9-52); AST 23 U/L (14-36); Alkaline Phosphatase 62 U/L (38-126); Anion Gap 6 mmol/L; Blood Urea Nitrogen 17 mg/dL (7-17); Calcium 9.4 mg/dL (8.4-10.2); Carbon Dioxide 37 mmol/L (22-30); Chloride 82 mmol/L (98-107); Glucose 159 mg/dL (74-99); Non-African American GFR(MDRD) >60 (>60 ml/min/1.73 sqM); Potassium 4.3 mmol/L (3.5-5.1); Sodium 125 mmol/L (137-145); Total Bilirubin 0.3 mg/dL (0.2-1.3); Total Protein 6.2 g/dL (6.3-8.2)
[2017-01-03 20:44] LABS: INR 0.9 (<1.2); Prothrombin Time 9.4 sec (9.0-12.0)
[2017-01-03 20:45] LABS: Creatine Kinase 84 U/L (30-135)
[2017-01-03 20:48] LABS: Partial Thromboplastin Time 20.3 sec (22.0-30.0)
[2017-01-03 20:59] LABS: Troponin I <0.012 ng/mL (0.000-0.034)
--- NOTE | 2017-01-03 21:03 | XR ---
EXAMINATION TYPE: XR chest 2V DATE OF EXAM: 01/03/2017 COMPARISON: 12/14/2016 HISTORY: Difficulty breathing TECHNIQUE: Frontal and lateral views of the chest are obtained. FINDINGS: Heart and mediastinum are normal. There is suggestion of minimal infiltrate in the left lo wer lobe. The right lung is clear. There are no hilar masses. There are chest leads. There is no pleu ral effusion. IMPRESSION: Minimal left lower lobe pneumonia appears new compared to last exam. Normal heart.
[2017-01-03 21:08] LABS: Creatine Kinase MB 4.1 ng/mL (0.0-2.4)
[2017-01-03 21:14] LABS: VBG PH 7.37 (7.31-7.41)
[2017-01-03] MEDS ORDERED: DEXAMETHASONE SOD PHOSPHATE 10 MG/ML 1 ML VIAL IV STA (22:08)
--- NOTE | 2017-01-03 22:12 | ED ---
General Adult HPI - General Chief complaint: Shortness of Breath Stated complaint: INFECTION, Hx OF INFECTION OF MOUTH AND THROAT Time Seen by Provider: 01/03/17 18:57 Source: patient, RN notes reviewed Mode of arrival: wheelchair Limitations: no limitations - History of Present Illness Initial comments: 71-year-old female with history of COPD presents with a three-week history of cough congestion and worsening shortness of breath. Patient is on home O2 at 2 L. She does report a cough productive of sputum. She recently reduced or tobacco use. A sterile been smoking daily. Other additional past medical history of hypertension. Patient is concerned that this may be thrush and is unable to give a reason why this would be the case. Denies typical chest pain. Denies nausea vomiting or diarrhea. Denies fever or chills. - Related Data Home Medications Medication Instructions Recorded Confirmed Budesonide-Formot 160-4.5 Mcg 2 puff INHALATION RT-BID 12/11/13 01/03/17 [Symbicort 160-4.5 Mcg Inhaler] Levothyroxine Sodium [Synthroid] 125 mcg PO DAILY 12/11/13 01/03/17 Lisinopril [Zestril] 20 mg PO BID 12/11/13 01/03/17 Albuterol Sulfate [Proair Hfa] 2 puff INHALATION RT-Q6H PRN 01/08/16 01/03/17 Ipratropium-Albuterol Nebulize 3 ml INHALATION RT-QID 01/08/16 01/03/17 [Duoneb 0.5 mg-3 mg/3 ml Soln] Aspirin EC [Ecotrin Low Dose] 81 mg PO DAILY 12/10/16 01/03/17 Vitamin B Complex 1 cap PO DAILY 12/10/16 01/03/17 Loratadine [Claritin] 10 mg PO DAILY 12/11/16 01/03/17 Multivitamins, Thera [Multivitamin 1 tab PO DAILY 01/03/17 01/03/17 (formulary)] Allergies Allergy/AdvReac Type Severity Reaction Status Date / Time prednisone Allergy Severe SOB Verified 01/03/17 19:18 bacitracin Allergy Rash/Hives Verified 01/03/17 19:18 [From Neosporin ([id number])] neomycin Allergy Rash/Hives Verified 01/03/17 19:18 [From Neosporin ([id number])] Penicillins Allergy Rash/Hives Verified 01/03/17 19:18 polymyxin B Allergy Rash/Hives Verified 01/03/17 19:18 [From Neosporin ([id number])] levofloxacin [From Levaquin] AdvReac WEAKNESS Verified 01/03/17 19:18 ELDA/POLY/DEX Allergy Rash/Hives Uncoded 01/03/17 18:23 Review of Systems ROS Statement: Those systems with pertinent positive or pertinent negative responses have been documented in the HPI. ROS Other: All systems not noted in ROS Statement are negative. Past Medical History Past Medical History: Chest Pain / Angina, COPD, Hypertension, Osteoarthritis ( OA), Thyroid Disorder Additional Past Medical History / Comment(s): O2 2 liters nc at night and PRN during the day. History of Any Multi-Drug Resistant Organisms: None Reported Past Surgical History: Heart Catheterization, Hysterectomy, Tubal Ligation Additional Past Surgical History / Comment(s): cataracts removed Past Anesthesia/Blood Transfusion Reactions: Previous Problems w/ Anesthesia, Postoperative Nausea & Vomiting (PONV) Additional Past Anesthesia/Blood Transfusion Reaction / Comment(s): oxygen was "low" post op, nausea one time Past Psychological History: Anxiety Smoking Status: Current every day smoker Past Alcohol Use History: Rare Past Drug Use History: None Reported - Past Family History Mother History Unknown: Yes Family Medical History: Cancer, Thyroid Disorder Additional Family Medical History / Comment(s): Liver Cancer Father History Unknown: Yes Family Medical History: Cancer General Exam Limitations: no limitations General appearance: alert, in no apparent distress Head exam: Present: atraumatic, normocephalic Eye exam: Present: normal appearance, PERRL ENT exam: Present: normal exam, mucous membranes moist Neck exam: Present: normal inspection, full ROM Respiratory exam: Present: wheezes, decreased breath sounds, prolonged expiratory Cardiovascular Exam: Present: regular rate, normal rhythm GI/Abdominal exam: Present: soft. Absent: distended, tenderness Extremities exam: Present: normal capillary refill. Absent: pedal edema Neurological exam: Present: alert, oriented X3 Psychiatric exam: Present: normal affect, normal mood Skin exam: Present: warm, dry Course Vital Signs 01/03/17 01/03/17 01/03/17 18:23 20:10 20:26 Temperature 98.3 F Pulse Rate 87 89 91 Respiratory 17 Rate Blood Pressure 133/79 O2 Sat by Pulse 97 Oximetry 01/03/17 01/03/17 20:33 20:42 Temperature Pulse Rate 92 98 Respiratory 18 Rate Blood Pressure 158/85 O2 Sat by Pulse 97 Oximetry EKG Findings - EKG Comments: EKG Findings:: EKG shows normal sinus rhythm with a ventricular rate of 92, NC interval 142, QS duration 98, QTC is [address] segment elevation or depression. Medical Decision Making - Medical Decision Making 71-year-old female presents with worsening cough and dyspnea. Patient does have a history of COPD. She states these symptoms have been worsening since discharge approximately 3 weeks ago. She has cough productive of yellow to green sputum. She has borderline her home oxygen and taking her medications with minimal relief. On examination she is brown Primary E's. Minimal respiratory distress. She is given albuterol, Atrovent, steroids in the emergency department on reevaluation she is not feeling any better. She will be admitted for COPD exacerbation. - Lab Data Result diagrams: 01/03/17 19:00 01/03/17 19:00 Lab Results 01/03/17 01/03/17 01/03/17 Range/Units 19:00 19:00 19:00 WBC 13.3 H (3.8-10.6) k/uL RBC 4.19 (3.80-5.40) m/uL Hgb 12.7 (11.4-16.0) gm/dL Hct 39.6 (34.0-46.0) % MCV 94.5 (80.0-100.0) fL MCH 30.3 (25.0-35.0) pg MCHC 32.1 (31.0-37.0) g/dL RDW 13.5 (11.5-15.5) % Plt Count 330 (150-450) k/uL Neutrophils % 89 % Lymphocytes % 6 % Monocytes % 3 % Eosinophils % 0 % Basophils % 0 % Neutrophils # 11.8 H (1.3-7.7) k/uL Lymphocytes # 0.8 L (1.0-4.8) k/uL Monocytes # 0.4 (0-1.0) k/uL Eosinophils # 0.0 (0-0.7) k/uL Basophils # 0.0 (0-0.2) k/uL PT (9.0-12.0) sec INR (<1.2) APTT (22.0-30.0) sec VBG pH (7.31-7.41) VBG pCO2 (37-51) mmHg VBG HCO3 (24-28) mmol/L Sodium 125 L (137-145) mmol/L Potassium 4.3 (3.5-5.1) mmol/L Chloride 82 L (98-107) mmol/L Carbon Dioxide 37 H (22-30) mmol/L Anion Gap 6 mmol/L BUN 17 (7-17) mg/dL Creatinine 0.65 (0.52-1.04) mg/dL Est GFR (MDRD) Af Amer >60 (>60 ml/min/1.73 sqM) Est GFR (MDRD) Non-Af >60 (>60 ml/min/1.73 sqM) Glucose 159 H (74-99) mg/dL Calcium 9.4 (8.4-10.2) mg/dL Total Bilirubin 0.3 (0.2-1.3) mg/dL AST 23 (14-36) U/L ALT 44 (9-52) U/L Alkaline Phosphatase 62 (38-126) U/L Total Creatine Kinase 84 (30-135) U/L CK-MB (CK-2) 4.1 H* (0.0-2.4) ng/mL CK-MB (CK-2) Rel Index 4.9 Troponin I <0.012 (0.000-0.034) ng/mL Total Protein 6.2 L (6.3-8.2) g/dL Albumin 3.8 (3.5-5.0) g/dL 01/03/17 01/03/17 Range/Units 19:00 21:00 WBC (3.8-10.6) k/uL RBC (3.80-5.40) m/uL Hgb (11.4-16.0) gm/dL Hct (34.0-46.0) % MCV (80.0-100.0) fL MCH (25.0-35.0) pg MCHC (31.0-37.0) g/dL RDW (11.5-15.5) % Plt Count (150-450) k/uL Neutrophils % % Lymphocytes % % Monocytes % % Eosinophils % % Basophils % % Neutrophils # (1.3-7.7) k/uL Lymphocytes # (1.0-4.8) k/uL Monocytes # (0-1.0) k/uL Eosinophils # (0-0.7) k/uL Basophils # (0-0.2) k/uL PT 9.4 (9.0-12.0) sec INR 0.9 (<1.2) APTT 20.3 L (22.0-30.0) sec VBG pH 7.37 (7.31-7.41) VBG pCO2 67 H (37-51) mmHg VBG HCO3 38 H (24-28) mmol/L Sodium (137-145) mmol/L Potassium (3.5-5.1) mmol/L Chloride (98-107) mmol/L Carbon Dioxide (22-30) mmol/L Anion Gap mmol/L BUN (7-17) mg/dL Creatinine (0.52-1.04) mg/dL Est GFR (MDRD) Af Amer (>60 ml/min/1.73 sqM) Est GFR (MDRD) Non-Af (>60 ml/min/1.73 sqM) Glucose (74-99) mg/dL Calcium (8.4-10.2) mg/dL Total Bilirubin (0.2-1.3) mg/dL AST (14-36) U/L ALT (9-52) U/L Alkaline Phosphatase (38-126) U/L Total Creatine Kinase (30-135) U/L CK-MB (CK-2) (0.0-2.4) ng/mL CK-MB (CK-2) Rel Index Troponin I (0.000-0.034) ng/mL Total Protein (6.3-8.2) g/dL Albumin (3.5-5.0) g/dL Disposition Clinical Impression: COPD exacerbation Disposition: ADMITTED IP TO THIS [facility] Condition: Stable Referrals: Chris Sears MD [Primary Care Provider] - 1-2 days Decision to Admit Reason: Admit from EC Decision Date: 01/03/17 Decision Time: 21:00
[2017-01-03 23:31] VITALS: BMI 24.7
[2017-01-04] MEDS: IPRATROPIUM-ALBUTEROL 3 ML NEB INHALATION PRN ×5 (05:42→20:10)
--- NOTE | 2017-01-04 11:09 | P.HPIM ---
History of Present Illness 71-year-old female with history of COPD presents with a three-week history of cough congestion and worsening shortness of breath. Patient is on home O2 at 2 L. She does report a cough productive of sputum. She recently reduced tobacco use. She does not appear to have good insight into her medical problems and patient believes she has thrush in her bladder which is causing her symptoms and antibiotics will make her better. Patient believes she is ALLERGIC and is on an truly she is not.she also believes that she has bilateral pedal edema secondary to severe G and took a few doses of Lasix lead to her hyponatremia. Because of which patient will stay in the hospital tonight her hyponatremia is most probably due to Lasix. Patient continues to have some expiratory wheezing. But doesn't want to take full strength prednisone but willing to take the taper she was discharged on. It doesn't appear to have advanced COPD. Aspirating well on her home O2 of 2 L and patient says she has baseline wheezing all the time. And requesting to see pulmonology. Denies typical chest pain. Denies nausea vomiting or diarrhea. Denies fever or chills. Review of Systems REVIEW OF SYSTEMS: CONSTITUTIONAL: No fever, no malaise, no fatigue. HEENT: No recent visual problems or hearing problems. Denied any sore throat. CARDIOVASCULAR: No chest pain, orthopnea, PND, no palpitations, no syncope. PULMONARY: As described in HPI GASTROINTESTINAL: No diarrhea, no nausea, no vomiting, no abdominal pain. Normoactive bowel sounds. NEUROLOGICAL: No headaches, no weakness, no numbness. HEMATOLOGICAL: Denies any bleeding or petechiae. GENITOURINARY: Denies any burning micturition, frequency, or urgency. MUSCULOSKELETAL/RHEUMATOLOGICAL: Denies any joint pain, swelling, or any muscle pain. ENDOCRINE: Denies any polyuria or polydipsia. The rest of the 14-point review of systems is negative. Past Medical History Past Medical History: Chest Pain / Angina, COPD, Hypertension, Osteoarthritis ( OA), Thyroid Disorder Additional Past Medical History / Comment(s): O2 2 liters nc at night and PRN during the day. History of Any Multi-Drug Resistant Organisms: None Reported Past Surgical History: Heart Catheterization, Hysterectomy, Tubal Ligation Additional Past Surgical History / Comment(s): cataracts removed Past Anesthesia/Blood Transfusion Reactions: Previous Problems w/ Anesthesia, Postoperative Nausea & Vomiting (PONV) Additional Past Anesthesia/Blood Transfusion Reaction / Comment(s): oxygen was "low" post op, nausea one time Past Psychological History: Anxiety Smoking Status: Current every day smoker Past Alcohol Use History: None Reported Past Drug Use History: None Reported - Past Family History Mother History Unknown: Yes Family Medical History: Cancer, Thyroid Disorder Additional Family Medical History / Comment(s): Liver Cancer Father History Unknown: Yes Family Medical History: Cancer Medications and Allergies Home Medications Medication Instructions Recorded Confirmed Type Budesonide-Formot 160-4.5 Mcg 2 puff INHALATION RT-BID 12/11/13 01/03/17 History [Symbicort 160-4.5 Mcg Inhaler] Levothyroxine Sodium [Synthroid] 125 mcg PO DAILY 12/11/13 01/03/17 History Lisinopril [Zestril] 20 mg PO BID 12/11/13 01/03/17 History Albuterol Sulfate [Proair Hfa] 2 puff INHALATION RT-Q6H PRN 01/08/16 01/03/17 History Ipratropium-Albuterol Nebulize 3 ml INHALATION RT-QID 01/08/16 01/03/17 History [Duoneb 0.5 mg-3 mg/3 ml Soln] Aspirin EC [Ecotrin Low Dose] 81 mg PO DAILY 12/10/16 01/03/17 History Vitamin B Complex 1 cap PO DAILY 12/10/16 01/03/17 History Loratadine [Claritin] 10 mg PO DAILY 12/11/16 01/03/17 History Multivitamins, Thera [Multivitamin 1 tab PO DAILY 01/03/17 01/03/17 History (formulary)] Allergies Allergy/AdvReac Type Severity Reaction Status Date / Time prednisone Allergy Severe SOB Verified 01/03/17 19:18 bacitracin Allergy Rash/Hives Verified 01/03/17 19:18 [From Neosporin ([id number])] neomycin Allergy Rash/Hives Verified 01/03/17 19:18 [From Neosporin ([id number])] Penicillins Allergy Rash/Hives Verified 01/03/17 19:18 polymyxin B Allergy Rash/Hives Verified 01/03/17 19:18 [From Neosporin ([id number])] levofloxacin [From Levaquin] AdvReac WEAKNESS Verified 01/03/17 19:18 EDLA/POLY/DEX Allergy Rash/Hives Uncoded 01/03/17 18:23 Physical Exam Vitals: Vital Signs Temp Pulse Pulse Resp BP BP Pulse Ox 01/04/17 09:51 90 01/04/17 08:00 87 18 01/04/17 07:53 102 H 01/04/17 07:43 98 98 01/04/17 07:00 96.4 F L 87 18 158/70 99 01/04/17 05:54 104 H 01/04/17 05:45 100 01/04/17 00:22 97.8 F 84 16 135/69 98 01/03/17 22:38 87 18 130/74 96 01/03/17 21:30 89 18 131/63 99 01/03/17 20:42 98 18 158/85 97 01/03/17 20:33 92 01/03/17 20:26 91 01/03/17 20:10 89 01/03/17 18:23 98.3 F 87 17 133/79 97 Intake and Output 01/03/17 01/04/17 01/04/17 22:59 06:59 14:59 Intake Total 400 Balance 400 Intake: Oral 400 Other: Voiding Method Toilet # Voids 1 Weight 69.4 kg PHYSICAL EXAMINATION: GENERAL: The patient is alert and oriented x3, not in any acute distress. Well developed, well nourished. HEENT: Pupils are round and equally reacting to light. EOMI. No scleral icterus. No conjunctival pallor. Normocephalic, atraumatic. No pharyngeal erythema. No thyromegaly. CARDIOVASCULAR: S1 and S2 present. No murmurs, rubs, or gallops. PULMONARY: As minimally decreased air entry and bilateral lung bauman and significant expiratory wheezing. Patient does not have any crackles ABDOMEN: Soft, nontender, nondistended, normoactive bowel sounds. No palpable organomegaly. MUSCULOSKELETAL: No joint swelling or deformity. EXTREMITIES: No cyanosis, clubbing, or pedal edema. NEUROLOGICAL: Gross neurological examination did not reveal any focal deficits. SKIN: No rashes. Results CBC & Chem 7: 01/03/17 19:00 01/03/17 19:00 Labs: Abnormal Lab Results - Last 24 Hours (Table) 01/03/17 01/03/17 01/03/17 Range/Units 19:00 19:00 19:00 WBC 13.3 H (3.8-10.6) k/uL Neutrophils # 11.8 H (1.3-7.7) k/uL Lymphocytes # 0.8 L (1.0-4.8) k/uL APTT (22.0-30.0) sec VBG pCO2 (37-51) mmHg VBG HCO3 (24-28) mmol/L Sodium 125 L (137-145) mmol/L Chloride 82 L (98-107) mmol/L Carbon Dioxide 37 H (22-30) mmol/L Glucose 159 H (74-99) mg/dL CK-MB (CK-2) 4.1 H* (0.0-2.4) ng/mL Total Protein 6.2 L (6.3-8.2) g/dL 01/03/17 01/03/17 Range/Units 19:00 21:00 WBC (3.8-10.6) k/uL Neutrophils # (1.3-7.7) k/uL Lymphocytes # (1.0-4.8) k/uL APTT 20.3 L (22.0-30.0) sec VBG pCO2 67 H (37-51) mmHg VBG HCO3 38 H (24-28) mmol/L Sodium (137-145) mmol/L Chloride (98-107) mmol/L Carbon Dioxide (22-30) mmol/L Glucose (74-99) mg/dL CK-MB (CK-2) (0.0-2.4) ng/mL Total Protein (6.3-8.2) g/dL Thrombosis Risk Factor Assmnt - Choose All That Apply Any of the Below Risk Factors Present?: Yes Each Factor Represents 1 point: Abnormal pulmonary function (COPD) Other Risk Factors: Yes Each Risk Factor Represents 2 Points: Age 61-74 years Thrombosis Risk Factor Assessment Total Risk Factor Score: 3 Thrombosis Risk Factor Assessment Level: Moderate Risk Assessment and Plan Plan: 1 acute on chronic hypercapnic respiratory failure secondary to COPD exacerbation and patient continues to smoke, patient was started on oral prednisone along with systemic steroids. We'll get pulmonology to evaluate the patient. And patient probably can be discharged tomorrow 2 hyponatremia: Secondary to Lasix which asked her to discontinue. Also get urine and sodium, urine random creatinine urine serum osmolality. #3 hypertension: Not on any medications at home. 4 hypothyroidism. 5 continued nicotine use: Counseling was provided
[2017-01-04] MEDS: AZITHROMYCIN 500 MG TAB PO SCH (11:13)
[2017-01-04 11:19] LABS: Anion Gap 8 mmol/L; Blood Urea Nitrogen 22 mg/dL (7-17); Calcium 9.7 mg/dL (8.4-10.2); Carbon Dioxide 34 mmol/L (22-30); Chloride 86 mmol/L (98-107); Glucose 346 mg/dL (74-99); Non-African American GFR(MDRD) >60 (>60 ml/min/1.73 sqM); Potassium 4.5 mmol/L (3.5-5.1); Sodium 128 mmol/L (137-145)
[2017-01-04] MEDS: predniSONE 20 MG TAB PO SCH ×2 (11:50→13:08)
[2017-01-04 17:11] LABS: Glucose,Whole Blood 152 mg/dL (75-99)
[2017-01-04] MEDS: SYMBICORT 160-4.5 MCG INHALER INHALATION SCH (20:11)
[2017-01-04 20:16] LABS: Glucose,Whole Blood 288 mg/dL (75-99)
[2017-01-04 20:42] LABS: Glucose,Whole Blood 263 mg/dL (75-99)
[2017-01-04] MEDS: LISINOPRIL 20 MG TAB PO SCH (20:47)
[2017-01-04] MEDS: NYSTATIN 100,000 UNIT/ML SUSP 500,000 UNIT/5 ML CUP PO SCH (20:47)
[2017-01-04 23:50] VITALS: RESP 20
[2017-01-05] MEDS ORDERED: LEVOTHYROXINE 125 MCG TAB PO SCH (06:30)
[2017-01-05] MEDS: SYMBICORT 160-4.5 MCG INHALER INHALATION SCH ×2 (07:20→20:52)
[2017-01-05] MEDS: IPRATROPIUM-ALBUTEROL 3 ML NEB INHALATION PRN ×3 (07:20→20:50)
[2017-01-05 07:38] LABS: Glucose,Whole Blood 106 mg/dL (75-99)
[2017-01-05 08:04] VITALS: BP 147/75; TEMP 97.4
[2017-01-05 08:15] LABS: Blood Urea Nitrogen 20 mg/dL (7-17); Calcium 9.3 mg/dL (8.4-10.2); Chloride 89 mmol/L (98-107); Glucose 93 mg/dL (74-99); Non-African American GFR(MDRD) >60 (>60 ml/min/1.73 sqM); Potassium 4.6 mmol/L (3.5-5.1); Sodium 133 mmol/L (137-145)
[2017-01-05 08:40] LABS: Anion Gap 3 mmol/L
[2017-01-05 08:43] LABS: Carbon Dioxide 41 mmol/L (22-30)
[2017-01-05] MEDS: AZITHROMYCIN 500 MG TAB PO SCH (08:46)
[2017-01-05] MEDS: NYSTATIN 100,000 UNIT/ML SUSP 500,000 UNIT/5 ML CUP PO SCH ×3 (08:46→17:36)
[2017-01-05] MEDS: LISINOPRIL 20 MG TAB PO SCH (08:46)
[2017-01-05] MEDS: predniSONE 20 MG TAB PO SCH (08:46)
[2017-01-05] MEDS ORDERED: ASPIRIN 81 MG CHEW PO SCH (09:00)
[2017-01-05] MEDS ORDERED: LORATADINE 10 MG TAB PO SCH (09:00)
[2017-01-05 11:04] LABS: Glucose,Whole Blood 186 mg/dL (75-99)
--- NOTE | 2017-01-05 11:31 | P.DS ---
Providers Date of admission: 01/03/17 22:06 Attending physician: Chava Limon Primary care physician: Chris Sears Hospital Course: Patient is admitted for presumed exacerbation patient still has minimal wheeze which is her baseline. Inpatient the has significant clinical improvement competitors to the patient will be discharged on weaning dose of steroids andazithromycin Patient will follow Dr. Sears as an outpatient outpatient patient has hyponatremia secondary to she Lasix she received as an outpatient. Hyponatremia improved with IV fluids. GENERAL: The patient is alert and oriented x3, not in any acute distress. Well developed, well nourished. HEENT: Pupils are round and equally reacting to light. EOMI. No scleral icterus. No conjunctival pallor. Normocephalic, atraumatic. No pharyngeal erythema. No thyromegaly. CARDIOVASCULAR: S1 and S2 present. No murmurs, rubs, or gallops. PULMONARY: As minimally decreased air entry and bilateral lung bauman and expiratory wheezing. Improved Patient does not have any crackles ABDOMEN: Soft, nontender, nondistended, normoactive bowel sounds. No palpable organomegaly. MUSCULOSKELETAL: No joint swelling or deformity. EXTREMITIES: No cyanosis, clubbing, or pedal edema. NEUROLOGICAL: Gross neurological examination did not reveal any focal deficits. SKIN: No rashes. 1 acute on chronic hypercapnic respiratory failure secondary to COPD exacerbation and patient continues to smoke, patient was started on oral prednisone along with systemic steroids. 2 hyponatremia: Secondary to Lasix which asked her to discontinue. Serum sodium did improve #3 hypertension: Not on any medications at home. 4 hypothyroidism. 5 continued nicotine use: Counseling was provided Patient Condition at Discharge: Stable Plan - Discharge Summary New Discharge Prescriptions: New Azithromycin [Zithromax Tri-Marc] 500 mg PO DAILY #3 tab predniSONE 10 mg PO DAILY #30 tab No Action Levothyroxine Sodium [Synthroid] 125 mcg PO DAILY Budesonide-Formot 160-4.5 Mcg [Symbicort 160-4.5 Mcg Inhaler] 2 puff INHALATION RT-BID Lisinopril [Zestril] 20 mg PO BID Ipratropium-Albuterol Nebulize [Duoneb 0.5 mg-3 mg/3 ml Soln] 3 ml INHALATION RT-QID Albuterol Sulfate [Proair Hfa] 2 puff INHALATION RT-Q6H PRN PRN Reason: Shortness Of Breath Aspirin EC [Ecotrin Low Dose] 81 mg PO DAILY Vitamin B Complex 1 cap PO DAILY Loratadine [Claritin] 10 mg PO DAILY Multivitamins, Thera [Multivitamin (formulary)] 1 tab PO DAILY Discharge Medication List Budesonide-Formot 160-4.5 Mcg [Symbicort 160-4.5 Mcg Inhaler] 2 puff INHALATION RT-BID 12/11/13 [History] Levothyroxine Sodium [Synthroid] 125 mcg PO DAILY 12/11/13 [History] Lisinopril [Zestril] 20 mg PO BID 12/11/13 [History] Albuterol Sulfate [Proair Hfa] 2 puff INHALATION RT-Q6H PRN 01/08/16 [History] Ipratropium-Albuterol Nebulize [Duoneb 0.5 mg-3 mg/3 ml Soln] 3 ml INHALATION RT -QID 01/08/16 [History] Aspirin EC [Ecotrin Low Dose] 81 mg PO DAILY 12/10/16 [History] Vitamin B Complex 1 cap PO DAILY 12/10/16 [History] Loratadine [Claritin] 10 mg PO DAILY 12/11/16 [History] Multivitamins, Thera [Multivitamin (formulary)] 1 tab PO DAILY 01/03/17 [History ] Azithromycin [Zithromax Tri-Marc] 500 mg PO DAILY #3 tab 01/05/17 [Rx] predniSONE 10 mg PO DAILY #30 tab 01/05/17 [Rx] Follow up Appointment(s)/Referral(s): Chris Sears MD [Primary Care Provider] - 01/25/17 2:45 pm [facility], [NON-STAFF] - As Needed Patient Instructions/Handouts: Prednisone (By mouth), Azithromycin (By mouth), COPD (Chronic Obstructive Pulmonary Disease) (DC) Discharge Disposition: HOME SELF-CARE
--- NOTE | 2017-01-05 14:11 | P.CNPUL ---
History of Present Illness Consult date: 01/05/17 Reason for consult: dyspnea, COPD History of present illness: 71-year-old female patient, a primary of Dr. Sears, with advanced oxygen- dependent COPD with an FEV1 of 28% of predicted, was recently Hospital as for an acute COPD exacerbation. During her hospital stay the patient was treated with a combination of bronchodilators and steroids and ultimately she was discharged home. The patient has advanced COPD and very limited performance and functional status. Upon discharge she was given Omnicef and a prednisone burst taper. Unfortunately she continues to smoke and the patient was given smoking cessation counseling and nicotine patch. The patient came in yesterday again to the emergency department with similar symptoms of chest congestion tightness and wheezing and she was producing minimal amount of sputum. Chest x- ray was essentially unchanged. My understanding that the patient or the been discharged home by Dr. Doherty assuming that this is a limited COPD exacerbation and can be managed at home. The patient reported some rawness in her throat and difficulties in swallowing. Earlier chest and ENT and she was told to have some oropharyngeal candidiasis pH is afebrile for now. Tolerating her diet. No nausea or vomiting. No chest pain. No swelling in lower extremities. A bit anxious. Review of Systems A full review of system was done and the positive findings are almost above history of present illness. As mentioned earlier she is having constant and chronic shortness of breath, chest tightness and wheezing along with chest congestion. She has also some difficulties in swallowing and oropharyngeal candidiasis. No headache. No change in mental status. A bit anxious and angry that her condition is not getting any better. No change in mental status. No falls. No open wounds or sores. Past Medical History Past Medical History: Chest Pain / Angina, COPD, Hypertension, Osteoarthritis ( OA), Thyroid Disorder Additional Past Medical History / Comment(s): Advanced COPD with FEV1 of 28% of predicted, chronic hypoxic respiratory failure, smoker, hypertension, hypothyroidism, skeletal chest wall pain, chronic anxiety History of Any Multi-Drug Resistant Organisms: None Reported Past Surgical History: Heart Catheterization, Hysterectomy, Tubal Ligation Additional Past Surgical History / Comment(s): cataracts removed Past Anesthesia/Blood Transfusion Reactions: Previous Problems w/ Anesthesia, Postoperative Nausea & Vomiting (PONV) Additional Past Anesthesia/Blood Transfusion Reaction / Comment(s): oxygen was "low" post op, nausea one time Past Psychological History: Anxiety Smoking Status: Current every day smoker Past Alcohol Use History: None Reported Past Drug Use History: None Reported - Past Family History Mother History Unknown: Yes Family Medical History: Cancer, Thyroid Disorder Additional Family Medical History / Comment(s): Liver Cancer Father History Unknown: Yes Family Medical History: Cancer Medications and Allergies Home Medications Medication Instructions Recorded Confirmed Type Budesonide-Formot 160-4.5 Mcg 2 puff INHALATION RT-BID 12/11/13 01/03/17 History [Symbicort 160-4.5 Mcg Inhaler] Levothyroxine Sodium [Synthroid] 125 mcg PO DAILY 12/11/13 01/03/17 History Lisinopril [Zestril] 20 mg PO BID 12/11/13 01/03/17 History Albuterol Sulfate [Proair Hfa] 2 puff INHALATION RT-Q6H PRN 01/08/16 01/03/17 History Ipratropium-Albuterol Nebulize 3 ml INHALATION RT-QID 01/08/16 01/03/17 History [Duoneb 0.5 mg-3 mg/3 ml Soln] Aspirin EC [Ecotrin Low Dose] 81 mg PO DAILY 12/10/16 01/03/17 History Vitamin B Complex 1 cap PO DAILY 12/10/16 01/03/17 History Loratadine [Claritin] 10 mg PO DAILY 12/11/16 01/03/17 History Multivitamins, Thera [Multivitamin 1 tab PO DAILY 01/03/17 01/03/17 History (formulary)] Allergies Allergy/AdvReac Type Severity Reaction Status Date / Time prednisone Allergy Severe SOB Verified 01/03/17 19:18 bacitracin Allergy Rash/Hives Verified 01/03/17 19:18 [From Neosporin ([id number])] neomycin Allergy Rash/Hives Verified 01/03/17 19:18 [From Neosporin ([id number])] Penicillins Allergy Rash/Hives Verified 01/03/17 19:18 polymyxin B Allergy Rash/Hives Verified 01/03/17 19:18 [From Neosporin ([id number])] levofloxacin [From Levaquin] AdvReac WEAKNESS Verified 01/03/17 19:18 ELDA/POLY/DEX Allergy Rash/Hives Uncoded 01/03/17 18:23 Physical Exam Vitals: Vital Signs Temp Pulse Pulse Resp BP Pulse Ox 01/05/17 11:35 105 H 01/05/17 11:24 110 H 01/05/17 08:00 20 01/05/17 07:33 102 H 01/05/17 07:20 109 H 01/05/17 07:00 97.4 F L 84 20 147/75 100 01/05/17 00:00 105 H 20 01/04/17 23:00 96.2 F L 105 H 20 150/74 98 01/04/17 20:22 103 H 01/04/17 20:11 105 H 95 01/04/17 16:26 98 01/04/17 16:17 96 01/04/17 15:31 102 H 16 01/04/17 15:00 97 F L 102 H 16 133/78 97 Intake and Output 01/04/17 01/05/17 01/05/17 22:59 06:59 14:59 Intake Total 260 150 Output Total 600 Balance 260 -450 Intake: Oral 260 150 Output: Urine 600 Other: Voiding Method Toilet Toilet Toilet # Voids 1 The patient appeared well nourished and normally developed. Vital signs as documented. Head exam is unremarkable. No scleral icterus or corneal arcus noted. Neck is without jugular venous distension, thyromegaly, or carotid bruits. Carotid upstrokes are brisk bilaterally. Lungs are markedly diminished breath sounds along with scattered rhonchi scattered expiratory wheezes throughout the lung bauman bilaterally and the patient has prolongation of the expiratory phase of breathing. Cardiac exam reveals the PMI to be normally sized and situated. Rhythm is regular. First and second heart sounds normal. No murmurs, rubs or gallops. Abdominal exam reveals normal bowel sounds, no masses , no organomegaly and no aortic enlargement. Extremities are nonedematous and both femoral and pedal pulses are normal. Results - Laboratory Findings CBC and BMP: 01/03/17 19:00 01/05/17 07:23 PT/INR, D-dimer PT 9.4 sec (9.0-12.0) 01/03/17 19:00 INR 0.9 (<1.2) 01/03/17 19:00 Abnormal lab findings: Abnormal Labs 01/03/17 01/03/1717 19:00 19:00 19:00 WBC 13.3 H Neutrophils # 11.8 H Lymphocytes # 0.8 L APTT VBG pCO2 VBG HCO3 Sodium 125 L Chloride 82 L Carbon Dioxide 37 H BUN Glucose 159 H POC Glucose (mg/dL) CK-MB (CK-2) 4.1 H* Total Protein 6.2 L Ur Random Sodium 01/03/17 01/03/17 01/04/17 19:00 21:00 10:45 WBC Neutrophils # Lymphocytes # APTT 20.3 L VBG pCO2 67 H VBG HCO3 38 H Sodium 128 L Chloride 86 L Carbon Dioxide 34 H BUN 22 H Glucose 346 H POC Glucose (mg/dL) CK-MB (CK-2) Total Protein Ur Random Sodium 01/04/17 01/04/17 01/04/17 13:36 17:10 20:15 WBC Neutrophils # Lymphocytes # APTT VBG pCO2 VBG HCO3 Sodium Chloride Carbon Dioxide BUN Glucose POC Glucose (mg/dL) 152 H 288 H CK-MB (CK-2) Total Protein Ur Random Sodium 20 L 01/04/17 01/05/17 01/05/17 20:20 07:23 07:23 WBC Neutrophils # Lymphocytes # APTT VBG pCO2 VBG HCO3 Sodium 133 L Chloride 89 L Carbon Dioxide 41 H* BUN 20 H Glucose POC Glucose (mg/dL) 263 H 106 H CK-MB (CK-2) Total Protein Ur Random Sodium 01/05/17 11:02 WBC Neutrophils # Lymphocytes # APTT VBG pCO2 VBG HCO3 Sodium Chloride Carbon Dioxide BUN Glucose POC Glucose (mg/dL) 186 H CK-MB (CK-2) Total Protein Ur Random Sodium - Diagnostic Findings Chest x-ray: image reviewed Assessment and Plan Plan: Assessment 1 advanced oxygen-dependent COPD with an FEV1 of 28% of predicted 2 chronic hypoxic respiratory failure 3 chronic hypercapnic respiratory failure with secondary metabolic alkalosis, which is compensatory to her chronic hypercapnia 4 worsening shortness of breath, with limited COPD exacerbation limited left basilar infiltration. Rule out underlying pneumonia although this is doubtful 5 oropharyngeal candidiasis 6 hypothyroidism 7 hypertension 8 anxiety 9 smoker Plan The patient will be discharged home today on a course of Zithromax and Diflucan. She'll be completing a prednisone burst taper. Continue Symbicort and and Spiriva at home as maintenance for COPD. Continue the albuterol and ipratropium neb last treatment [id number] 4 times a day. We'll see this patient in the office at a very short follow-up.
[2017-01-05 21:10] VITALS: PULSE 112
== END 2017-01-05 21:16 | disposition home or self-care (01) ==
LOC: EC 18:19 → 5MS5E 22:06
PROVIDERS: ADMIT Hospitalist; ATTEND Hospitalist
DX: J44.1 Chronic obstructive pulmonary disease with (acute) exacerbation (principal); J96.22 Acute and chronic respiratory failure with hypercapnia; J96.21 Acute and chronic respiratory failure with hypoxia; Z99.81 Dependence on supplemental oxygen; E87.3 Alkalosis; F17.200 Nicotine dependence, unspecified, uncomplicated; B37.89 Other sites of candidiasis; E03.9 Hypothyroidism, unspecified; I10 Essential (primary) hypertension; E87.1 Hypo-osmolality and hyponatremia; F41.9 Anxiety disorder, unspecified; T50.1X5A Adverse effect of loop [high-ceiling] diuretics, initial encounter; Z79.51 Long term (current) use of inhaled steroids; Z79.899 Other long term (current) drug therapy; Z79.82 Long term (current) use of aspirin; Z88.1 Allergy status to other antibiotic agents; Z88.0 Allergy status to penicillin; Z88.8 Allergy status to other drugs, medicaments and biological substances; E07.9 Disorder of thyroid, unspecified; Z80.0 Family history of malignant neoplasm of digestive organs
CPT/HCPCS: 96374; 96375; 99285; 36415; 94640 ×5; 94760; 93005; 84300; 83930; 80053; 80048 ×2; 82550; 82553; 82803; 84484; 85025; 85610; 85730; 83935; 71020; G0378 ×3; J1100; J2930; J7512 ×2

== ENCOUNTER 2017-01-17 21:26 | Inpatient (IN) | payer MEDICARE, BC ==
[2017-01-17] MEDS ORDERED: ALBUTEROL NEBULIZED 2.5 MG/3 ML INHALATION STA (21:46)
[2017-01-17] MEDS ORDERED: IPRATROPIUM 0.5 MG/2.5 ML NEBU INHALATION STA (21:46)
[2017-01-17] MEDS ORDERED: FUROSEMIDE 10 MG/ML 4 ML VIAL IV STA (21:46)
[2017-01-17 22:05] LABS: Basophils % (A) 0 %; CH 30.5; CHCM 32.9; Eosinophils % (A) 0 %; HCT 39.6 % (34.0-46.0); HDW 2.39; HGB 12.9 gm/dL (11.4-16.0); Luc % (Auto) 2; Lymphocytes # (A) 0.8 k/uL (1.0-4.8); Lymphocytes % (A) 7 %; MCH 30.3 pg (25.0-35.0); MCHC 32.5 g/dL (31.0-37.0); MCV 93.3 fL (80.0-100.0); Mean Platelet Volume 7.2; Monocytes # (A) 0.7 k/uL (0-1.0); Monocytes % (A) 5 %; Neutrophils # (A) 10.9 k/uL (1.3-7.7); Neutrophils % (A) 86 %; RBC 4.24 m/uL (3.80-5.40); WBC 12.8 k/uL (3.8-10.6); WBC (Perox) 13.48
[2017-01-17] MEDS: SODIUM CHLORIDE 0.9% 1,000 ML IV STA (22:11)
--- NOTE | 2017-01-17 22:23 | ED ---
SOB HPI - General Chief Complaint: Shortness of Breath Stated Complaint: SHAYY Time Seen by Provider: 01/17/17 21:33 Source: patient Mode of arrival: EMS Limitations: no limitations - History of Present Illness Initial Comments: 71 years old lady with a history of for severe COPD and history of smoking for 57 years comes in with worsening of chronic shortness of breath today she does have a history of severe COPD he was hospitalized recently with chest pain off and on today chest pain is no worse with deep breaths. Denies any fever no chills trying to bring up any phlegm and not able to bring up any she was ( antibiotics on discharge she still on antibiotics and she is still taking prednisonethat she is ALLERGIC prednisone she said she takes antihistamine with. Review ofSystem is unremarkable otherwise - Related Data Home Medications Medication Instructions Recorded Confirmed Budesonide-Formot 160-4.5 Mcg 2 puff INHALATION RT-BID 12/11/13 01/17/17 [Symbicort 160-4.5 Mcg Inhaler] Levothyroxine Sodium [Synthroid] 125 mcg PO DAILY 12/11/13 01/17/17 Lisinopril [Zestril] 20 mg PO BID 12/11/13 01/17/17 Albuterol Sulfate [Proair Hfa] 2 puff INHALATION RT-Q6H PRN 01/08/16 01/17/17 Ipratropium-Albuterol Nebulize 3 ml INHALATION RT-Q4H PRN 01/08/16 01/17/17 [Duoneb 0.5 mg-3 mg/3 ml Soln] Aspirin EC [Ecotrin Low Dose] 81 mg PO DAILY 12/10/16 01/17/17 Loratadine [Claritin] 10 mg PO DAILY 12/11/16 01/17/17 Furosemide [Lasix] 20 mg PO DAILY 01/17/17 01/17/17 Potassium Chloride [Klor-Con 10] 10 meq PO DAILY 01/17/17 01/17/17 Sulfamethox-Tmp 800-160Mg [Bactrim 1 tab PO Q12H 01/17/17 01/17/17 DS 800-160 mg] guaiFENesin SYRUP 100MG/5ML 200 mg PO Q6H PRN 01/17/17 01/17/17 [Robitussin] predniSONE See Taper PO DAILY 01/17/17 01/17/17 Allergies Allergy/AdvReac Type Severity Reaction Status Date / Time prednisone Allergy Severe SOB Verified 01/17/17 21:59 bacitracin Allergy Rash/Hives Verified 01/03/17 19:18 [From Neosporin ([id number])] neomycin Allergy Rash/Hives Verified 01/03/17 19:18 [From Neosporin ([id number])] Penicillins Allergy Rash/Hives Verified 01/03/17 19:18 polymyxin B Allergy Rash/Hives Verified 01/03/17 19:18 [From Neosporin ([id number])] levofloxacin [From Levaquin] AdvReac WEAKNESS Verified 01/03/17 19:18 ELDA/POLY/DEX Allergy Rash/Hives Uncoded 01/03/17 18:23 Review of Systems ROS Statement: Those systems with pertinent positive or pertinent negative responses have been documented in the HPI. ROS Other: All systems not noted in ROS Statement are negative. Past Medical History Past Medical History: Chest Pain / Angina, COPD, Hypertension, Osteoarthritis ( OA), Thyroid Disorder Additional Past Medical History / Comment(s): Advanced COPD with FEV1 of 28% of predicted, chronic hypoxic respiratory failure, smoker, hypertension, hypothyroidism, skeletal chest wall pain, chronic anxiety History of Any Multi-Drug Resistant Organisms: None Reported Past Surgical History: Heart Catheterization, Hysterectomy, Tubal Ligation Additional Past Surgical History / Comment(s): cataracts removed Past Anesthesia/Blood Transfusion Reactions: Previous Problems w/ Anesthesia, Postoperative Nausea & Vomiting (PONV) Additional Past Anesthesia/Blood Transfusion Reaction / Comment(s): oxygen was "low" post op, nausea one time Past Psychological History: Anxiety Smoking Status: Former smoker Past Alcohol Use History: None Reported Past Drug Use History: None Reported - Past Family History Mother History Unknown: Yes Family Medical History: Cancer, Thyroid Disorder Additional Family Medical History / Comment(s): Liver Cancer Father History Unknown: Yes Family Medical History: Cancer General Exam - General Exam Comments Initial Comments: General: The patient is awake and alert, in severe distress, rates respiratory , respiratory rate is 26 Skin: Skin is warm and dry and no rashes or lesions are noted. Eye: Pupils are equal, round and reactive to light, extra-ocular movements are intact; there is normal conjunctiva bilaterally. Ears, nose, mouth and throat: There are moist mucous membranes and no oral lesions. Neck: The neck is supple, there is no tenderness Cardiovascular: There is a regular rate and rhythm. No murmur, rub or gallop is appreciated. Respiratory: To auscultation bilateral, report air exchange she is not even wheezing at this point Gastrointestinal: Soft, non-distended, non-tender abdomen without masses or organomegaly noted. There is no rebound or guarding present. Bowel sounds are unremarkable. Back: There is no tenderness to palpation in the midline. There is no obvious deformity. Musculoskeletal: Normal ROM, no tenderness, There is no pedal edema. There is no calf tenderness or swelling. No cords were appreciated. Neurological: CN II-XII intact, Cranial nerves III through XII are intact. There are no obvious motor or sensory deficits. Coordination appears grossly intact. Speech is normal. Psychiatric: Cooperative, appropriate mood & affect, normal judgment. She is anxious Limitations: no limitations Course Vital Signs 01/17/17 01/17/17 01/17/17 21:32 21:39 22:17 Temperature 98.4 F Pulse Rate 102 H 97 Respiratory 24 24 Rate Blood Pressure 164/108 O2 Sat by Pulse 92 L Oximetry 01/17/17 01/17/17 01/17/17 22:30 22:45 23:04 Temperature Pulse Rate 96 99 102 H Respiratory 22 Rate Blood Pressure 151/69 O2 Sat by Pulse 98 Oximetry Normal sinus rhythm ventricular rate is 98 CO interval is 1:30 QRS duration is 88 QT/QTc is 328/418 50 mL EKG does not show any ST elevation or ST depression - Reevaluation(s) Reevaluation #1: 01/17/17 23:55 Her labs and imaging is discussed with her white count is 12.8 d-dimer is negative sodium is on the lower side 141 potassium is 5.5-6 when negative for any infiltrate she be admitted to Dr. Limon service and will consult Dr. Sears Medical Decision Making - Lab Data Result diagrams: 01/17/17 22:00 01/17/17 22:00 Lab Results 01/17/17 01/17/17 01/17/17 Range/Units 22:00 22:00 22:00 WBC 12.8 H (3.8-10.6) k/uL RBC 4.24 (3.80-5.40) m/uL Hgb 12.9 (11.4-16.0) gm/dL Hct 39.6 (34.0-46.0) % MCV 93.3 (80.0-100.0) fL MCH 30.3 (25.0-35.0) pg MCHC 32.5 (31.0-37.0) g/dL RDW 14.0 (11.5-15.5) % Plt Count 278 (150-450) k/uL Neutrophils % 86 % Lymphocytes % 7 % Monocytes % 5 % Eosinophils % 0 % Basophils % 0 % Neutrophils # 10.9 H (1.3-7.7) k/uL Lymphocytes # 0.8 L (1.0-4.8) k/uL Monocytes # 0.7 (0-1.0) k/uL Eosinophils # 0.0 (0-0.7) k/uL Basophils # 0.0 (0-0.2) k/uL PT (9.0-12.0) sec INR (<1.2) APTT (22.0-30.0) sec D-Dimer (<0.60) mg/L FEU Sodium 121 L (137-145) mmol/L Potassium 5.5 H (3.5-5.1) mmol/L Chloride 82 L (98-107) mmol/L Carbon Dioxide 33 H (22-30) mmol/L Anion Gap 6 mmol/L BUN 13 (7-17) mg/dL Creatinine 0.60 (0.52-1.04) mg/dL Est GFR (MDRD) Af Amer >60 (>60 ml/min/1.73 sqM) Est GFR (MDRD) Non-Af >60 (>60 ml/min/1.73 sqM) Glucose 147 H (74-99) mg/dL Calcium 9.4 (8.4-10.2) mg/dL Total Bilirubin 0.3 (0.2-1.3) mg/dL AST 25 (14-36) U/L ALT 43 (9-52) U/L Alkaline Phosphatase 66 (38-126) U/L Total Creatine Kinase 107 (30-135) U/L CK-MB (CK-2) 4.9 H* (0.0-2.4) ng/mL CK-MB (CK-2) Rel Index 4.6 Troponin I <0.012 (0.000-0.034) ng/mL NT-Pro-B Natriuret Pep pg/mL Total Protein 6.3 (6.3-8.2) g/dL Albumin 3.9 (3.5-5.0) g/dL Urine Color Urine Appearance (Clear) Urine pH (5.0-8.0) Ur Specific [place] (1.001-1.035) Urine Protein (Negative) Urine Glucose (UA) (Negative) Urine Ketones (Negative) Urine Blood (Negative) Urine Nitrite (Negative) Urine Bilirubin (Negative) Urine Urobilinogen (<2.0) mg/dL Ur Leukocyte Esterase (Negative) 01/17/17 01/17/17 01/17/17 Range/Units 22:00 22:00 23:15 WBC (3.8-10.6) k/uL RBC (3.80-5.40) m/uL Hgb (11.4-16.0) gm/dL Hct (34.0-46.0) % MCV (80.0-100.0) fL MCH (25.0-35.0) pg MCHC (31.0-37.0) g/dL RDW (11.5-15.5) % Plt Count (150-450) k/uL Neutrophils % % Lymphocytes % % Monocytes % % Eosinophils % % Basophils % % Neutrophils # (1.3-7.7) k/uL Lymphocytes # (1.0-4.8) k/uL Monocytes # (0-1.0) k/uL Eosinophils # (0-0.7) k/uL Basophils # (0-0.2) k/uL PT 9.3 (9.0-12.0) sec INR 0.9 (<1.2) APTT 20.3 L (22.0-30.0) sec D-Dimer 0.19 (<0.60) mg/L FEU Sodium (137-145) mmol/L Potassium (3.5-5.1) mmol/L Chloride (98-107) mmol/L Carbon Dioxide (22-30) mmol/L Anion Gap mmol/L BUN (7-17) mg/dL Creatinine (0.52-1.04) mg/dL Est GFR (MDRD) Af Amer (>60 ml/min/1.73 sqM) Est GFR (MDRD) Non-Af (>60 ml/min/1.73 sqM) Glucose (74-99) mg/dL Calcium (8.4-10.2) mg/dL Total Bilirubin (0.2-1.3) mg/dL AST (14-36) U/L ALT (9-52) U/L Alkaline Phosphatase (38-126) U/L Total Creatine Kinase (30-135) U/L CK-MB (CK-2) (0.0-2.4) ng/mL CK-MB (CK-2) Rel Index Troponin I (0.000-0.034) ng/mL NT-Pro-B Natriuret Pep 41 pg/mL Total Protein (6.3-8.2) g/dL Albumin (3.5-5.0) g/dL Urine Color Colorless Urine Appearance Clear (Clear) Urine pH 6.5 (5.0-8.0) Ur Specific [place] 1.003 (1.001-1.035) Urine Protein Negative (Negative) Urine Glucose (UA) Negative (Negative) Urine Ketones Negative (Negative) Urine Blood Negative (Negative) Urine Nitrite Negative (Negative) Urine Bilirubin Negative (Negative) Urine Urobilinogen <2.0 (<2.0) mg/dL Ur Leukocyte Esterase Negative (Negative) Disposition Clinical Impression: Acute respiratory failure, Acute exacerbation of chronic obstructive pulmonary disease Disposition: ADMITTED IP TO THIS HOSP Condition: Fair Referrals: Chris Sears MD [Primary Care Provider] - 1-2 days
[2017-01-17 22:25] LABS: ALT 43 U/L (9-52); AST 25 U/L (14-36); Alkaline Phosphatase 66 U/L (38-126); Anion Gap 6 mmol/L; Blood Urea Nitrogen 13 mg/dL (7-17); Calcium 9.4 mg/dL (8.4-10.2); Carbon Dioxide 33 mmol/L (22-30); Chloride 82 mmol/L (98-107); Glucose 147 mg/dL (74-99); Non-African American GFR(MDRD) >60 (>60 ml/min/1.73 sqM); Potassium 5.5 mmol/L (3.5-5.1); Sodium 121 mmol/L (137-145); Total Bilirubin 0.3 mg/dL (0.2-1.3); Total Protein 6.3 g/dL (6.3-8.2)
[2017-01-17 22:28] LABS: INR 0.9 (<1.2); Partial Thromboplastin Time 20.3 sec (22.0-30.0); Prothrombin Time 9.3 sec (9.0-12.0)
[2017-01-17 22:33] LABS: Creatine Kinase 107 U/L (30-135)
[2017-01-17] MEDS ORDERED: BUDESONIDE 0.5 MG/2 ML NEBU INHALATION STA (22:36)
[2017-01-17] MEDS ORDERED: MAGNESIUM SULFATE-D5W PMX 1 GM in DEXTROSE/WATER 1 100ML.BAG IVPB ONE (22:36)
[2017-01-17] MEDS ORDERED: LORATADINE 10 MG TAB PO STA (22:38)
[2017-01-17 22:44] LABS: Troponin I <0.012 ng/mL (0.000-0.034)
[2017-01-17 22:47] LABS: Creatine Kinase MB 4.9 ng/mL (0.0-2.4)
[2017-01-17 23:22] LABS: Appearance,Urine Clear (Clear); Bilirubin,Urine Negative (Negative); Glucose,Urine (UA) Negative (Negative); Ketones,Urine Negative (Negative); Leukocyte Esterase,Urine Negative (Negative); Nitrite,Urine Negative (Negative); PH, Urine 6.5 (5.0-8.0); Protein,Urine Negative (Negative); Specific Gravity,Urine 1.003 (1.001-1.035); UA Billing (MACRO vs. MICRO) CHEM; Urobilinogen,Urine <2.0 mg/dL (<2.0)
--- NOTE | 2017-01-17 23:28 | XR ---
EXAM: XR Chest, 2 Views CLINICAL HISTORY: difficulty breathing TECHNIQUE: Frontal and lateral views of the chest. COMPARISON: Chest x-ray dated 01/03/2017 FINDINGS: Lungs: Calcified pulmonary nodule seen within the right lower lobe, which is unchanged. Otherwise, the lungs are clear. Pleural space: Unremarkable. No pneumothorax. Heart: Unremarkable. No cardiomegaly. Mediastinum: Unremarkable. Bones/joints: Degenerative changes of the osseous structures. IMPRESSION: No acute findings.
[2017-01-17] MEDS ORDERED: IPRATROPIUM-ALBUTEROL 3 ML NEB INHALATION PRN (23:55)
[2017-01-18] MEDS ORDERED: guaiFENesin SYRUP 100MG/5ML 200 MG/10 ML CUP PO PRN (00:03)
[2017-01-18] MEDS ORDERED: ALBUTEROL NEBULIZED 2.5 MG/3 ML INHALATION PRN (00:03)
[2017-01-18] MEDS ORDERED: SULFAMETHOX-TMP 800-160MG 1 EACH TAB PO SCH (00:15)
[2017-01-18] MEDS: methylPREDNISolone SOD SUCCI 125 MG/2 ML VIAL IV SCH ×3 (03:59→12:34)
[2017-01-18] MEDS: IPRATROPIUM-ALBUTEROL 3 ML NEB INHALATION PRN ×3 (05:31→12:18)
[2017-01-18 07:37] LABS: Glucose,Whole Blood 153 mg/dL (75-99)
[2017-01-18] MEDS ORDERED: SYMBICORT 160-4.5 MCG INHALER INHALATION SCH (08:00)
[2017-01-18] MEDS: BUDESONIDE 0.5 MG/2 ML NEBU INHALATION SCH ×2 (08:32→19:38)
[2017-01-18] MEDS: LORATADINE 10 MG TAB PO SCH (08:35)
[2017-01-18] MEDS: ASPIRIN 81 MG CHEW PO SCH (08:35)
[2017-01-18] MEDS: LISINOPRIL 20 MG TAB PO SCH ×2 (08:35→21:09)
[2017-01-18] MEDS: LEVOTHYROXINE 125 MCG TAB PO SCH (08:35)
[2017-01-18] MEDS: SODIUM CHLORIDE 0.9% 1,000 ML IV STA (08:36)
[2017-01-18] MEDS: SODIUM CHLORIDE 0.9% 1,000 ML IV SCH ×4 (08:39→18:03)
[2017-01-18] MEDS ORDERED: FUROSEMIDE 20 MG TAB PO SCH (09:00)
[2017-01-18 11:17] LABS: Glucose,Whole Blood 270 mg/dL (75-99)
[2017-01-18] MEDS: INSULIN LISPRO (humaLOG) 300 UNIT/3 ML VIAL SQ SCH ×4 (12:33→21:09)
[2017-01-18] MEDS: ENOXAPARIN 40 MG/0.4 ML SYRINGE SQ SCH (12:33)
[2017-01-18] MEDS: DOXYCYCLINE 50 MG CAP PO SCH ×2 (12:41→21:10)
[2017-01-18 14:04] LABS: Hemoglobin A1C 7.8 % (4.2-6.1)
[2017-01-18] MEDS ORDERED: LEVALBUTEROL NEB (CONC) 1.25 MG/0.5 ML AMP INHALATION PRN (14:49)
[2017-01-18] MEDS: ALPRAZolam 0.25 MG TAB PO PRN ×2 (15:20→15:21)
[2017-01-18] MEDS: LEVALBUTEROL NEB (CONC) 1.25 MG/0.5 ML AMP INHALATION SCH ×2 (16:47→19:38)
[2017-01-18] MEDS: IPRATROPIUM 0.5 MG/2.5 ML NEBU INHALATION SCH ×2 (16:47→19:38)
[2017-01-18 17:35] LABS: Glucose,Whole Blood 203 mg/dL (75-99)
[2017-01-18] MEDS: diphenhydrAMINE 50 MG CAP PO PRN (17:36)
--- NOTE | 2017-01-18 17:42 | CONS ---
This is a patient well known to us. She is a 71-year-old female with a history of severe oxygen-dependent COPD. She has been smoking for about 57 years. States she is not smoking currently, although depending on what day you ask her , she apparently does continue to smoke a bit. At any rate, she came in with complaints of increasing shortness of breath. She does have severe COPD. States she cannot get a breath in. I keep on trying to tell this patient that this is going to be the way it is for the rest of her life. She does not really seem to appreciate the fact that she has severe COPD, and with any activity and sometimes even at rest, she will have profound dyspnea. The patient denies any fever or chills. She does not cough up any phlegm. No nausea, vomiting or diarrhea. The patient has no chest pain per se; maybe some chest tightness. She really looks no different from the last time I saw her here in the hospital. She often goes on and on about some oropharyngeal candidiasis or esophageal candidiasis recently evaluated by Dr. Trotter. Apparently she was placed on Nystatin Swish and Swallow. Her home medications include: 1. Symbicort. 2. Synthroid. 3. Lisinopril. 4. ProAir HFA updrafts with DuoNeb. 5. Aspirin. 6. Loratadine. 7. Lasix. 8. Potassium. 9. Bactrim. 10. Guaifenesin. 11. Prednisone with a taper. ALLERGIES INCLUDE: 1. PREDNISONE. 2. BACITRACIN. 3. NEOMYCIN. 4. PENICILLIN. 5. POLYMYXIN B. 6. LEVAQUIN. 7. OTHER ANTIBIOTIC OINTMENTS. Medical history includes: 1. COPD, which is quite severe and oxygen-dependent. 2. Pulmonary hypertension. 3. Angina pectoris. 4. Hypertension. 5. DJD. 6. Hypothyroidism. 7. Chest wall pain. 8. Chronic hypoxemic respiratory failure. Surgical history includes: 1. Heart catheterization. 2. Hysterectomy. 3. Tubal ligation. 4. Cataract surgery. Social history is positive for former/ongoing tobacco use. She denies any alcohol. Denies any illicit drug use. Family history is positive for thyroid disorder and liver cancer. REVIEW OF SYSTEMS: CONSTITUTIONAL: Negative. NEUROLOGIC: Negative. HEENT: Throat pain and difficulty swallowing. CARDIOVASCULAR: Negative. PULMONARY: Shortness of breath, cough. No phlegm production. Wheezing. Chest tightness. GI/: Negative. RHEUMATOLOGIC/IMMUNOLOGIC: Negative. ENDOCRINOLOGIC: Negative. DERMATOLOGIC: Negative. Current vital signs include temperature 98, heart rate 88, respiratory rate 20, blood pressure 129/64, mean 85, 3-liter saturation 98%. Looks about at baseline to me. Chronically tachypneic and dyspneic. No worse than normal. HEENT examination is grossly unremarkable. Mucous membranes are moist. NECK: Supple. Cardiovascular examination reveals regular rhythm and rate. Heart sounds are distant. Heart rate is in the mid 80s. No murmur. Lungs reveal coarse rhonchi. Breath sounds are diminished. There is slight prolongation. Breath sounds are equal bilaterally but severely diminished throughout. No crackles. No wheezes. ABDOMEN: Soft. Bowel sounds are heard. Extremities are intact. Slight edema. There is some mild erythema and cellulitis in the lower extremities, worse on the left than on the right side. Skin otherwise without rash other than some chronic venostasis changes. Neurologic examination is brief but non-focal. Chest x-ray shows no acute process. Labs are reviewed. White count 12.8. Hemoglobin, hematocrit and platelet count all normal. PT and INR are normal. PTT normal. D-dimer normal. Sodium 121, potassium 5.5, chloride 82, CO2 33. BUN and creatinine were 13 and 0.6. The rest of her liver function tests look pretty good. Urine is negative. As mentioned chest x-ray just shows changes of COPD. Microbiologically, everything is thus far negative. Medications are reviewed. The patient is on all the usual medications, including updrafts of albuterol, Pulmicort as well as Symbicort, Mucinex, Atrovent, Solu-Medrol and antibiotics in the form of Bactrim. ASSESSMENT: 1. Chronic obstructive pulmonary disease exacerbation in a patient with very severe end-stage chronic obstructive pulmonary disease with an FEV1 that is 28% of predicted. 2. Chronic hypoxemia respiratory failure. 3. Hypercapnic respiratory failure with renal retention of bicarbonate to balance the patient's chronic hypercapnia. 4. No evidence of pneumonia on chest x-ray. 5. Oropharyngeal candidiasis. 6. Hypothyroidism. 7. Hypertension. 8. Anxiety. 9. Ongoing tobacco use. PLAN: The patient continues to be admitted to the hospital. She looks to me to be at baseline. She is on appropriate medications. I would plan to get her out of the hospital as quickly as possible. She should probably be on either Diflucan 100 twice a day, Nystatin 5 mL q.i.d. or Mycelex sebastien 10 mg 5 times a day for her oropharyngeal and esophageal candidiasis. No additional recommendations are made. Prognosis is poor. I did try to explain to the patient that because of her severe COPD, she will be very limited and short of breath with any activity. MTDD
[2017-01-18 20:19] LABS: Glucose,Whole Blood 215 mg/dL (75-99)
[2017-01-18] MEDS: methylPREDNISolone SOD SUCCI 40 MG/ML 1 ML VIAL IV SCH (21:09)
[2017-01-18] MEDS ORDERED: IV VANCOMYCIN PER PHARMACY 1 EACH MISC MISCELLANE PRN (22:34)
[2017-01-18] MEDS: SODIUM CHLORIDE 0.9% 250 ML IV SCH ×3 (22:54→23:39)
[2017-01-18] MEDS: VANCOMYCIN 1,250 MG in SODIUM CHLORIDE 0.9% 250 ML IVPB SCH (23:35)
[2017-01-19] MEDS: ALPRAZolam 0.25 MG TAB PO PRN ×2 (03:58→13:43)
[2017-01-19] MEDS: SODIUM CHLORIDE 0.9% 250 ML IV SCH ×5 (04:08→04:12)
[2017-01-19 07:04] LABS: Glucose,Whole Blood 145 mg/dL (75-99)
[2017-01-19] MEDS: BUDESONIDE 0.5 MG/2 ML NEBU INHALATION SCH ×2 (07:54→20:40)
[2017-01-19] MEDS: IPRATROPIUM 0.5 MG/2.5 ML NEBU INHALATION SCH ×4 (07:54→20:40)
[2017-01-19] MEDS: LEVALBUTEROL NEB (CONC) 1.25 MG/0.5 ML AMP INHALATION SCH ×4 (07:54→20:40)
[2017-01-19] MEDS: ENOXAPARIN 40 MG/0.4 ML SYRINGE SQ SCH (09:16)
[2017-01-19] MEDS: COLLAGENASE 250 UNIT/GM OINTMENT 30 GM TUBE TOPICAL SCH (09:16)
[2017-01-19] MEDS: methylPREDNISolone SOD SUCCI 40 MG/ML 1 ML VIAL IV SCH ×3 (09:17→23:14)
[2017-01-19] MEDS: DOXYCYCLINE 50 MG CAP PO SCH ×2 (09:17→20:50)
[2017-01-19] MEDS: LEVOTHYROXINE 125 MCG TAB PO SCH (09:17)
[2017-01-19] MEDS: LISINOPRIL 20 MG TAB PO SCH ×2 (09:17→20:50)
[2017-01-19] MEDS: INSULIN LISPRO (humaLOG) 300 UNIT/3 ML VIAL SQ SCH ×4 (09:17→20:50)
[2017-01-19] MEDS: ASPIRIN 81 MG CHEW PO SCH (09:17)
[2017-01-19] MEDS: LORATADINE 10 MG TAB PO SCH (09:17)
--- NOTE | 2017-01-19 10:20 | P.PN ---
Subjective Progress note dated 01-19-17 This is a 71-year-old female with a history of very severe or end-stage COPD. Her FEV1 is 28% of predicted. She was admitted with a diagnosis of hypoxia make respiratory failure with chronic hypercapnia. Chest x-ray showed no evidence of pneumonia. She has a history of hypothyroidism hypertension anxiety ongoing tobacco use and oropharyngeal candidiasis. Is not exactly clear why the patient was admitted. She does see one of my partners as a primary. Objective - Vital Signs Vital signs: Vital Signs Temp 98.6 F 01/19/17 07:00 Pulse 104 H 01/19/17 07:58 Resp 20 01/19/17 07:00 BP 135/65 01/19/17 07:00 Pulse Ox 99 01/19/17 07:00 Intake & Output 01/18/17 01/19/17 01/19/17 18:59 06:59 18:59 Intake Total 120 1330 Output Total 400 Balance -280 1330 Intake: Oral 120 1330 Output: Urine 400 Other: Voiding Method Bedside Commode # Voids 3 # Bowel Movements 1 - Exam No acute distress, oriented 3. HEENT examination is grossly unremarkable. Mucous membranes are moist. No oral lesions. Neck supple. Full range of motion. No adenopathy or thyromegaly. Neck veins are flat. Cardiovascular examination reveals distant heart sounds. S1-S2 normal. No S3- S4. No distinct murmur noted. Lungs reveal coarse expiratory rhonchi. Breath sounds are diminished. Slight prolongation on forced liver. Patient wheezes and coughs on forced maneuver. Abdomen soft bowel sounds are heard. Extremities are intact. Slight edema. No skin rashes. Neurologic examination is brief but nonfocal. Skin Without rash or lesion. - Labs CBC & Chem 7: 01/17/17 22:00 01/17/17 22:00 Labs: Abnormal Lab Results - Last 24 Hours (Table) 01/17/17 01/17/17 01/18/17 Range/Units 22:00 22:00 11:15 POC Glucose (mg/dL) 270 H (75-99) mg/dL Hemoglobin A1c 7.8 H (4.2-6.1) % Osmolality 261 L (280-301) mosm/kg 01/18/17 01/18/17 01/19/17 Range/Units 17:33 20:18 07:00 POC Glucose (mg/dL) 203 H 215 H 145 H (75-99) mg/dL Hemoglobin A1c (4.2-6.1) % Osmolality (280-301) mosm/kg Microbiology - Last 24 Hours (Table) 01/17/17 22:00 Blood Culture - Preliminary Blood No Growth after 24 hours 01/17/17 23:15 Urine Culture - Preliminary Urine,Clean Catch Assessment and Plan (1) Acute exacerbation of chronic obstructive pulmonary disease Status: Acute (2) Acute bronchitis Status: Acute (3) Dyspnea Status: Acute (4) Hyperglycemia Status: Acute (5) Hyponatremia Status: Acute (6) Tobacco abuse Status: Acute Plan: Plan dated 01/19/2017 The patient seemed be doing reasonably well. We'll continue to treat the current fashion. The patient's on corticosteroids and short acting beta agonist short acting muscarinic antagonist long-acting beta agonist inhaled and systemic corticosteroids as well as systemic corticosteroids and antibiotics. She seemed be doing better. Her diagnoses included ongoing tobacco use, anxiety , hypertension, hypothyroidism, oropharyngeal candidiasis, hypercapnic respiratory failure, chronic hypoxemic respiratory failure, and COPD. Time with Patient: Greater than 30
--- NOTE | 2017-01-19 10:30 | HP ---
DATE OF SERVICE: 01/18/2017 CHIEF COMPLAINTS: Shortness of breath. HISTORY OF PRESENT ILLNESS: This 71-year-old woman with past medical history of multiple medical problems including chronic obstructive pulmonary disease as well as history of hepatitis, history of DJD, history of cardiac catheterization , history of anxiety being followed by Dr. Sears in the outpatient setting recently admitted with shortness of breath and chronic obstructive pulmonary disease acute exacerbation. Currently, the patient complains of shortness of breath and sputum and severe tiredness and weakness for the last four days and the patient admitted for evaluation and treatment. There is no history of fever , rigors or chills. No history of headache, loss of consciousness or seizures. The patient is also previously evaluated by Dr. Ellis, ENT and was thought to have esophageal Candidiasis. PAST MEDICAL HISTORY: History of chronic obstructive pulmonary disease, history of hypertension, history of DJD, history of anxiety. Medications prior to admission include home medications: 1. Prednisone taper daily. 2. Guaifenesin 200 mg q.h.s p.r.n 3. Bactrim DS 1 p.o b.i.d. 5. Claritin 10 mg p.o. daily. 6. Zestril 20 mg p.o. bid 7. Synthroid 125 mg p.o. daily. 8. DuoNeb q.i.d. and p.r.n 9. Lasix 20 mg p.o. daily. 10. Symbicort 160/4.5 two puffs bid 11. Ecotrin 81 mg p.o daily. 12. ProAir 2 puffs q.6. p.r.n ALLERGIES: PREDNISONE, BACITRACIN, NEOMYCIN, POLYMYXIN B, LEVAQUIN. FAMILY HISTORY: History of thyroid cancer, liver cancer in the family. SOCIAL HISTORY: Previous history of smoking, no history of current smoking or alcohol intake. REVIEW OF SYSTEMS: ENT: No diminished hearing or vision. CARDIOVASCULAR: No angina. RESPIRATORY: As mentioned earlier. GI: No nausea. : No dysuria. NERVOUS SYSTEM: No numbness or weakness. ALLERGY/IMMUNOLOGY: No asthma or hayfever. MUSCULOSKELETAL: As mentioned earlier. HEMATOLOGY/ONCOLOGY: No history of anemia. ENDOCRINE: No history of diabetes or hypothyroidism. CONSTITUTIONAL: As mentioned earlier. DERMATOLOGY: Negative. RHEUMATOLOGY: Negative. PSYCHIATRY: As mentioned earlier. PHYSICAL EXAMINATION: The patient is alert and oriented x3. Pulse is 119, blood pressure 150/83, respirations 20, temperature 97.3, pulse ox 94% on 3-L. HEENT: Conjunctivae normal. NECK: No jugular venous distention. CARDIOVASCULAR: S1, S2. RESPIRATORY: Breath sounds diminished at the bases. A few scattered rhonchi and crackles. ABDOMEN: Soft, nontender. LEGS: No edema, no swelling. Left lower leg wound present. NERVOUS SYSTEM: Higher function as mentioned. Moves all four limbs. No focal motor sensory deficits. LYMPHATICS: No lymphadenopathy in the neck, axillae or groin. SKIN: No rash, ulcer or bleeding. LABS: WBC 12.8, sodium 120, potassium 5.5. ASSESSMENT: 1. Chronic obstructive pulmonary disease acute exacerbation with acute purulent tracheobronchitis. 2. Esophageal candidiasis. 3. Increased WBC. 4. Hyponatremia. 5. Left lower leg cellulitis. 6. Hyperkalemia. 7. Diabetes mellitus type 2. 9. History of chronic obstructive pulmonary disease. 10. Hypertension. 11. History of degenerative joint disease. 12. History of hypothyroidism. 13. History of chronic hypoxic respiratory failure. 14. History of anxiety. RECOMMENDATIONS AND DISCUSSION: In this 71-year-old woman who presented with multiple complex medical issues, we well monitor the patient closely. Continue the current medications. Continue symptomatic treatment. Otherwise at this time I would recommend to continue to monitor. Repeat labs. Steroids, empiric antibiotics. Dr. Alexis will be consulted. Further recommendations to follow. Prognosis guarded because of multiple complex medical issues. Further recommendations to follow. See orders for details. Will repeat sodium tomorrow. MTDD
[2017-01-19 11:22] LABS: Glucose,Whole Blood 150 mg/dL (75-99)
[2017-01-19] MEDS: VANCOMYCIN 1,250 MG in SODIUM CHLORIDE 0.9% 250 ML IVPB SCH ×2 (11:24→23:14)
--- NOTE | 2017-01-19 11:34 | CONS ---
DATE OF CONSULTATION: 01/18/2017 REASON FOR CONSULTATION: Left lower extremity wound and possible cellulitis. HISTORY OF PRESENT ILLNESS: The patient is a 71-year old female with past medical history significant for end stage COPD. Significant history of smoking. Presented to the hospital with increasing shortness of breath. The patient has been diagnosed with COPD exacerbation and admitted to the hospital for further workup. The patient also noticed to have wound on the left leg for which I was asked to see the patient for recommendations. The patient did have wound on the dorsum of her left foot which she says started after she started having swelling in her leg from the Prednisone. Later blister that opened up and ( ) non-healing wound. The patient did have surrounding swelling and drainage of the dorsum of the foot with pain describing it to be throbbing, almost 6 to 7 out of 10 and no radiation. There is no significant drainage from it. The patient also has a wound on her left lower leg on the valencia that she sustained while ( ) side of the table. The patient denies any drainage from it. The pain is more in the foot than in the leg area. The patient denies having any fever or chills. REVIEW OF SYSTEMS: Constitutional: Positive for weakness but no fever. Eyes: No complaint. ENT: No complaint. Respiratory: As per HPI. Cardiovascular: No complaint. Genitourinary: No complaint. Gastrointestinal: No complaint. Musculoskeletal: As per HPI. Integumentary: As per HPI. Psychological: No complaint. Endocrine: No complaint. Neurological: No complaint. Past medical history includes: Hypertension, osteoarthritis, hypothyroidism, COPD, angina. Past surgical history: Tubal ligation, hysterectomy, heart catheterization, cataract removal. SOCIAL HISTORY: Has about 37 pack years history of smoking. Quit recently. No drinking or drug use. FAMILY HISTORY: Mother with history of thyroid cancer. ( ) history of cancer ( ). ALLERGIES: PENICILLIN, BACITRACIN. NEOMYCIN, PENICILLIN AND LEVOFLOXACIN. Medications currently include the patient is on: 1. Xanax. 2. Aspirin. 3. Pulmicort. 4. Benadryl. 5. Vibramycin. 6. Lovenox. 7. Robitussin. 8. Humalog. 9. Xopenex. 10. Synthroid. 11. Zestril. 12. Claritin. 13. Solu-Medrol. On examination, blood pressure is 158/84 with a pulse of 98. Temperature 97.3. She is 94% on 3 L nasal cannula. General description is an elderly female lying in bed in no distress. No tachypnea or accessory muscles of respiration use. HEENT: Examination shows no pallor or sclera icterus. Oral mucosa membranes dry. Some evidence of thrush. NECK: Trachea is central. No thyromegaly. LUNGS: Unlabored breathing. Decreased breath sounds at the bases. No wheeze. HEART: S1, S2 regular rate and rhythm. ABDOMEN: Soft, no tenderness. EXTREMITIES: No edema of the feet. Examination of the left leg on the dorsum of the foot, the patient did have some erythema, slightly warm to touch. Small wound with no significant purulence. The patient did have ( ) wound on the left lower leg which did have some slough tissue at the base. No significant surrounding erythema. NEUROLOGICALLY: The patient is awake, alert and oriented times three. Mood and affect normal. LABS: Hemoglobin 12.9, white count 12.8, BUN 13, creatinine 0.6. Potassium 5.5. DIAGNOSTIC IMPRESSION AND PLAN: Patient with left leg wound times two, one of them is from ruptured blister on the foot with some component of cellulitis. However, the wound on the left lower leg is traumatic with no evidence of any cellulitis in a patient who does have multiple antibiotic allergies that will limit the antibiotic that can be safely used. PLAN: 1. As for his local wound care, recommend Santyl to the left lower leg followed by moist dressing. 2. We will add Vancomycin, pharmacy to dose for a short course for left lower extremity cellulitis. 3. We will follow-up on the clinical condition and cultures to further adjust medication if needed. Thank you for this consultation. We will follow this patient along with you. SUKUMAR
[2017-01-19 11:39] LABS: Anion Gap 1 mmol/L; Blood Urea Nitrogen 21 mg/dL (7-17); Calcium 9.4 mg/dL (8.4-10.2); Carbon Dioxide 37 mmol/L (22-30); Chloride 88 mmol/L (98-107); Glucose 142 mg/dL (74-99); Non-African American GFR(MDRD) >60 (>60 ml/min/1.73 sqM); Potassium 5.1 mmol/L (3.5-5.1); Sodium 126 mmol/L (137-145)
[2017-01-19 17:12] LABS: Glucose,Whole Blood 224 mg/dL (75-99)
[2017-01-19 20:46] LABS: Glucose,Whole Blood 175 mg/dL (75-99)
--- NOTE | 2017-01-20 06:39 | PN ---
DATE OF SERVICE: 01/19/2017 This 71-year-old woman who was admitted with COPD acute exacerbation as well as acute purulent tracheobronchitis, also had possible esophageal candidiasis. The patient also had left lower lobe cellulitis. The patient is on broad spectrum IV antibiotics. PAST MEDICAL HISTORY: Reviewed. REVIEW OF SYSTEM: CARDIOVASCULAR: No angina. RESPIRATORY: As mentioned earlier. GI: As mentioned earlier. : No dysuria. NERVOUS SYSTEM: No focal deficits. Current medications are: 1. Xanax 0.25 t.i.d. 2. Aspirin 81 mg. 3. Pulmicort 0.5 b.i.d. 4. Santyl. 5. Benadryl. 6. Vibramycin. 7. Lovenox. 8. Humalog. 9. Synthroid. 10. Zestril. 11. Claritin. 12. Solu-Medrol. PHYSICAL EXAMINATION: The patient is alert and oriented x3. Pulse is 105, blood pressure 139/74, respiration 20, temperature 98.4, pulse ox 97% on 3 L. HEENT: Conjunctivae normal. NECK: No jugular venous distention. CARDIOVASCULAR: S1 and S2 muffled. RESPIRATORY: Breath sounds diminished at the bases. A few scattered rhonchi and crackles. ABDOMEN: Soft, nontender. LEGS: Left leg cellulitis NERVOUS SYSTEM: No focal deficits. LABS: Sodium 126. ASSESSMENT: 1. Chronic obstructive pulmonary disease acute exacerbation with acute purulent tracheobronchitis. 2. Esophageal candidiasis. 3. Left leg cellulitis. 4. Increased WBC. 5. Hyponatremia. 6. Hyperkalemia. 7. Diabetes mellitus type 2. RECOMMENDATIONS AND DISCUSSION: Recommend to continue current medications. Continue symptomatic treatment. Otherwise, bronchodilators, IV steroids. Monitor blood sugars closely. IV antibiotics. Closely follow with Pulmonary and Infectious Disease. Further recommendations to follow. MTDD
[2017-01-20 07:15] LABS: Glucose,Whole Blood 148 mg/dL (75-99)
[2017-01-20] MEDS: ASPIRIN 81 MG CHEW PO SCH (08:23)
[2017-01-20] MEDS: DOXYCYCLINE 50 MG CAP PO SCH ×2 (08:23→21:21)
[2017-01-20] MEDS: LISINOPRIL 20 MG TAB PO SCH ×2 (08:24→21:21)
[2017-01-20] MEDS: methylPREDNISolone SOD SUCCI 40 MG/ML 1 ML VIAL IV SCH ×3 (08:24→23:37)
[2017-01-20] MEDS: LEVOTHYROXINE 125 MCG TAB PO SCH (08:24)
[2017-01-20] MEDS: LORATADINE 10 MG TAB PO SCH (08:24)
[2017-01-20] MEDS: INSULIN LISPRO (humaLOG) 300 UNIT/3 ML VIAL SQ SCH ×4 (08:24→21:21)
[2017-01-20] MEDS: ENOXAPARIN 40 MG/0.4 ML SYRINGE SQ SCH (08:24)
[2017-01-20] MEDS: COLLAGENASE 250 UNIT/GM OINTMENT 30 GM TUBE TOPICAL SCH (08:25)
[2017-01-20] MEDS: IPRATROPIUM 0.5 MG/2.5 ML NEBU INHALATION SCH ×4 (09:03→21:08)
[2017-01-20] MEDS: LEVALBUTEROL NEB (CONC) 1.25 MG/0.5 ML AMP INHALATION SCH ×4 (09:03→21:09)
[2017-01-20] MEDS: BUDESONIDE 0.5 MG/2 ML NEBU INHALATION SCH ×2 (09:03→21:08)
[2017-01-20] MEDS ORDERED: VANCOMYCIN TROUGH DUE 1 EACH MISC MISCELLANE ONE (10:00)
--- NOTE | 2017-01-20 10:13 | PN ---
DATE OF SERVICE: 01/19/17 REASON FOR FOLLOW UP: Left lower extremity wound and cellulitis. INTERVAL HISTORY: The patient is afebrile. She is breathing slightly comfortably. Denies significant chest pain. Occasional cough. Pain and swelling to the left leg has slightly improved compared to yesterday. No significant drainage. On examination, blood pressure 139/74, pulse 105, temperature 98.4, she is 96% on 3 L nasal cannula. General description is an elderly female up in the bed, in no distress. Respiratory system: Unlabored breathing. Decreased breath sounds at the base. No wheeze. Heart: S1, S2 regular rate and rhythm. Abdomen soft, no tenderness. Labs: BUN 21, creatinine 0.80. DIAGNOSTIC IMPRESSION AND PLAN: Patient with left lower extremity wound and cellulitis, continue local wound care with Santyl and IV antibiotic in the form of Vancomycin. If the patient continues to improve, hopefully finish therapy with oral doxycycline. Continue supportive care. MTDD
[2017-01-20 10:49] LABS: Basophils % (A) 0 %; CH 30.4; CHCM 31.7; Eosinophils % (A) 0 %; HCT 38.7 % (34.0-46.0); HDW 2.34; HGB 12.2 gm/dL (11.4-16.0); Luc # (Auto) 0.39; Luc % (Auto) 3; Lymphocytes # (A) 0.8 k/uL (1.0-4.8); Lymphocytes % (A) 5 %; MCH 30.2 pg (25.0-35.0); MCHC 31.4 g/dL (31.0-37.0); MCV 96.2 fL (80.0-100.0); Mean Platelet Volume 7.2; Monocytes # (A) 0.8 k/uL (0-1.0); Monocytes % (A) 5 %; Neutrophils # (A) 13.8 k/uL (1.3-7.7); Neutrophils % (A) 88 %; RBC 4.02 m/uL (3.80-5.40); RDW 13.7 % (11.5-15.5); WBC 15.8 k/uL (3.8-10.6); WBC (Perox) 16.43
[2017-01-20 11:02] LABS: Anion Gap 4 mmol/L; Blood Urea Nitrogen 30 mg/dL (7-17); Calcium 9.7 mg/dL (8.4-10.2); Carbon Dioxide 36 mmol/L (22-30); Chloride 90 mmol/L (98-107); Glucose 114 mg/dL (74-99); Non-African American GFR(MDRD) >60 (>60 ml/min/1.73 sqM); Potassium 4.5 mmol/L (3.5-5.1); Sodium 130 mmol/L (137-145)
--- NOTE | 2017-01-20 11:14 | P.PN ---
Subjective Principal diagnosis: Acute exacerbation of severe end-stage oxygen-dependent chronic obstructive pulmonary disease This is a very pleasant 71-year-old female patient who is admitted again for an acute exacerbation of her COPD. She does have Gold stage IV oxygen dependent COPD her FEV1 value is 28% of predicted. She had presented with recurrence of increasing shortness of breath cough and congestion. Unfortunately does continue to smoke. She is also had ongoing oropharyngeal candidiasis. She is seen again today in follow-up on the regular medical floor. She is awake and alert in no acute distress. Sitting up at the bedside. She states she is breathing better today as compared to yesterday. She is able kerion complete sentences without significant shortness of breath. She is maintaining good O2 saturations in the high 90s on 3 L/m per nasal cannula. She's been afebrile. Hemodynamically stable. Blood culture reveals no growth to date. White count 15.8. Hemoglobin 12.2. Sodium improving currently 130. Objective - Vital Signs Vital signs: Vital Signs Temp 98 F 01/20/17 07:00 Pulse 100 01/20/17 09:03 Resp 16 01/20/17 07:00 BP 143/78 01/20/17 07:00 Pulse Ox 98 01/20/17 07:00 Intake & Output 01/19/17 01/20/17 01/20/17 18:59 06:59 18:59 Intake Total 275 830 200 Balance 275 830 200 Intake: IV 250 Vancomycin 1,250 mg In 250 Sodium Chloride 0.9% 250 ml @ 125 mls/hr IVPB Q12H [facility] Rx#:[id number] Intake, IV Titration 125 Amount Vancomycin 1,250 mg In 125 Sodium Chloride 0.9% 250 ml @ 125 mls/hr IVPB Q12H [facility] Rx#:[id number] Oral 150 580 200 Other: Voiding Method Bedside Commode Bedside Commode Bedside Commode # Voids 2 1 # Bowel Movements 1 - Exam GENERAL EXAM: Alert, fairly comfortable in no apparent distress. HEAD: Normocephalic. EYES: Normal reaction of pupils, equal size. NOSE: Clear with pink turbinates. THROAT: No erythema or exudates. NECK: No masses, no JVD. CHEST: No chest wall deformity. LUNGS: Equal air entry with no wheezing. Diminished throughout. CVS: S1 and S2 normal with no audible murmurs, regular rhythm. ABDOMEN: No hepatosplenomegaly, normal bowel sounds, no guarding or rigidity. SPINE: No scoliosis or deformity SKIN: No rashes. There is multiple areas of ecchymosis and thin tissue secondary to chronic steroid use. CENTRAL NERVOUS SYSTEM: No focal deficits, tone is normal in all 4 extremities. Extremities: There is trace peripheral edema. No clubbing, no cyanosis. Peripheral pulses are intact. - Labs CBC & Chem 7: 01/20/17 10:22 01/20/17 10:22 Labs: Abnormal Lab Results - Last 24 Hours (Table) 01/19/17 01/19/17 01/19/17 Range/Units 10:58 11:10 17:10 WBC (3.8-10.6) k/uL Neutrophils # (1.3-7.7) k/uL Lymphocytes # (1.0-4.8) k/uL Sodium 126 L (137-145) mmol/L Chloride 88 L (98-107) mmol/L Carbon Dioxide 37 H (22-30) mmol/L BUN 21 H (7-17) mg/dL Glucose 142 H (74-99) mg/dL POC Glucose (mg/dL) 150 H 224 H (75-99) mg/dL 01/19/17 01/20/17 01/20/17 Range/Units 20:44 07:10 10:22 WBC (3.8-10.6) k/uL Neutrophils # (1.3-7.7) k/uL Lymphocytes # (1.0-4.8) k/uL Sodium 130 L (137-145) mmol/L Chloride 90 L (98-107) mmol/L Carbon Dioxide 36 H (22-30) mmol/L BUN 30 H (7-17) mg/dL Glucose 114 H (74-99) mg/dL POC Glucose (mg/dL) 175 H 148 H (75-99) mg/dL 01/20/17 Range/Units 10:22 WBC 15.8 H (3.8-10.6) k/uL Neutrophils # 13.8 H (1.3-7.7) k/uL Lymphocytes # 0.8 L (1.0-4.8) k/uL Sodium (137-145) mmol/L Chloride (98-107) mmol/L Carbon Dioxide (22-30) mmol/L BUN (7-17) mg/dL Glucose (74-99) mg/dL POC Glucose (mg/dL) (75-99) mg/dL Microbiology - Last 24 Hours (Table) 01/17/17 22:00 Blood Culture - Preliminary Blood No Growth after 48 hours 01/17/17 23:15 Urine Culture - Final Urine,Clean Catch Assessment and Plan Plan: Impression: #1 Acute exacerbation of severe end-stage chronic obstructive pulmonary disease. #2 Acute on chronic hypoxic respiratory failure secondary to above. #3 Acute on chronic hypercapnic respiratory failure secondary to above. #4 Oropharyngeal candidiasis. #5 Chronic and ongoing tobacco dependence. #6 Hypothyroidism. #7 Hypertension. #8 Anxiety. Plan: The patient was seen and evaluated by Dr. Alexis. We'll continue with her current medications. She remains on her bronchodilators, Pulmicort, IV Solu- Medrol. She is on antibiotics in the form of vancomycin and doxycycline. We will increase her activity as tolerated. We'll continue to follow.
[2017-01-20] MEDS: VANCOMYCIN 1,250 MG in SODIUM CHLORIDE 0.9% 250 ML IVPB SCH (11:44)
[2017-01-20 12:16] LABS: Glucose,Whole Blood 118 mg/dL (75-99)
[2017-01-20] MEDS: ALPRAZolam 0.25 MG TAB PO PRN ×2 (15:46→21:43)
[2017-01-20 16:53] LABS: Glucose,Whole Blood 265 mg/dL (75-99)
[2017-01-20 20:30] LABS: Glucose,Whole Blood 201 mg/dL (75-99)
[2017-01-20] MEDS: VANCOMYCIN 1,500 MG in SODIUM CHLORIDE 0.9% 250 ML IVPB SCH (21:43)
--- NOTE | 2017-01-21 06:51 | PN ---
DATE OF SERVICE: 01/20/2017 Reason for followup is left lower extremity wound and cellulitis. INTERVAL HISTORY: The patient is afebrile. Her breathing has slightly improved. The patient denies significant chest pain or cough. No abdominal pain. Did mention that the pain and swelling to the left leg has improved. On examination, her blood pressure is 140/78 with a pulse of 100, temperature 98.3. She is 94% on 3 L nasal cannula. General description is an elderly female, lying in bed in no distress. RESPIRATORY SYSTEM: Unlabored breathing with decreased breath sounds at the bases. HEART: S1 and S2, regular rate and rhythm. ABDOMEN: Soft, no tenderness. LABS: Hemoglobin is 12.2, white count 15.8. BUN of 30, creatinine 0.75. DIAGNOSTIC IMPRESSION AND PLAN: Patient with a left lower extremity wound and cellulitis. Patient is continued on vancomycin and local wound care with Santyl. Wound culture has been ( ). Continue supportive care. MTDD
[2017-01-21 07:10] LABS: Glucose,Whole Blood 98 mg/dL (75-99)
[2017-01-21] MEDS: LEVALBUTEROL NEB (CONC) 1.25 MG/0.5 ML AMP INHALATION SCH ×4 (07:41→19:22)
[2017-01-21] MEDS: IPRATROPIUM 0.5 MG/2.5 ML NEBU INHALATION SCH ×4 (07:41→19:22)
[2017-01-21] MEDS: BUDESONIDE 0.5 MG/2 ML NEBU INHALATION SCH (07:43)
[2017-01-21] MEDS: LISINOPRIL 20 MG TAB PO SCH ×2 (08:04→20:11)
[2017-01-21] MEDS: ENOXAPARIN 40 MG/0.4 ML SYRINGE SQ SCH (08:04)
[2017-01-21] MEDS: LORATADINE 10 MG TAB PO SCH (08:04)
[2017-01-21] MEDS: DOXYCYCLINE 50 MG CAP PO SCH ×2 (08:04→20:11)
[2017-01-21] MEDS: LEVOTHYROXINE 125 MCG TAB PO SCH (08:04)
[2017-01-21] MEDS: INSULIN LISPRO (humaLOG) 300 UNIT/3 ML VIAL SQ SCH ×4 (08:05→21:19)
[2017-01-21] MEDS: ASPIRIN 81 MG CHEW PO SCH (08:05)
[2017-01-21] MEDS: methylPREDNISolone SOD SUCCI 40 MG/ML 1 ML VIAL IV SCH (08:05)
[2017-01-21] MEDS: COLLAGENASE 250 UNIT/GM OINTMENT 30 GM TUBE TOPICAL SCH (08:35)
[2017-01-21 08:38] LABS: Basophils % (A) 0 %; CH 30.4; CHCM 31.6; Eosinophils % (A) 0 %; HCT 37.6 % (34.0-46.0); HGB 11.6 gm/dL (11.4-16.0); Luc # (Auto) 0.38; Luc % (Auto) 3; Lymphocytes # (A) 1.6 k/uL (1.0-4.8); Lymphocytes % (A) 13 %; MCH 29.6 pg (25.0-35.0); MCHC 30.7 g/dL (31.0-37.0); MCV 96.4 fL (80.0-100.0); Monocytes # (A) 0.6 k/uL (0-1.0); Monocytes % (A) 5 %; Neutrophils # (A) 10.1 k/uL (1.3-7.7); Neutrophils % (A) 79 %; RDW 13.5 % (11.5-15.5); WBC 12.8 k/uL (3.8-10.6); WBC (Perox) 14.09
[2017-01-21 08:48] LABS: Blood Urea Nitrogen 21 mg/dL (7-17); Calcium 9.3 mg/dL (8.4-10.2); Chloride 89 mmol/L (98-107); Glucose 81 mg/dL (74-99); Non-African American GFR(MDRD) >60 (>60 ml/min/1.73 sqM); Sodium 131 mmol/L (137-145)
[2017-01-21 08:54] LABS: Anion Gap 0 mmol/L
[2017-01-21] MEDS: VANCOMYCIN 1,500 MG in SODIUM CHLORIDE 0.9% 250 ML IVPB SCH ×2 (08:59→20:19)
[2017-01-21 09:08] LABS: Carbon Dioxide 42 mmol/L (22-30)
--- NOTE | 2017-01-21 09:15 | PN ---
DATE OF SERVICE: 01/20/17 This 71 -year-old woman who admitted with COPD acute exacerbation, acute purulent tracheobronchitis also had candidiasis. The patient improved significantly. The patient was seen by infectious disease and Dr. Alexis also. Further recommendations to follow. The patient is on broad spectrum antibiotics also. No chest pain. No palpitations. No fever. The patient is currently on Solu-Medrol 40 mg IV q8h. On exam, alert and oriented times three. Pulse 112, Blood pressure 140/78. Respiratory rate 16. Temperature 98.2 degrees. Pulse ox 94% on 3 L. HEENT: Conjunctivae normal. Oral mucosa moist. NECK: No JVD. No carotid bruit. No lymph node enlargement. CARDIOVASCULAR: S1, S2 muffled. RESPIRATORY: Breath sounds diminished at the bases. Scattered rhonchi and crackles. Expiratory wheezing also present. Prolonged expiration present. Abdomen is soft. Nontender. No mass palpable. LEGS: No edema. No swelling. Nervous system: No focal deficits. LABS: WBC 15.8, sodium 130. ASSESSMENT: 1. Chronic obstructive pulmonary disease acute exacerbation with acute purulent tracheobronchitis. 2. Esophageal candidiasis. 3. Left leg cellulitis. 4. Increased WBC. 5. Hypernatremia. 6. Hyperkalemia. 7. Diabetes mellitus Type 2. RECOMMENDATIONS AND DISCUSSION: Continue the current medications. Continue with monitoring and symptomatic treatment. Continue to monitor creatinine closely. Guarded prognosis because of multiple medical problems. Repeat labs. Further recommendations to follow. MTDD
[2017-01-21] MEDS: ALPRAZolam 0.25 MG TAB PO PRN ×2 (11:34→20:11)
[2017-01-21 11:54] LABS: Glucose,Whole Blood 181 mg/dL (75-99)
[2017-01-21] MEDS ORDERED: ALBUTEROL NEBULIZED 2.5 MG/3 ML INHALATION PRN (12:42)
--- NOTE | 2017-01-21 13:40 | PN ---
This is a 71-year-old female with history of end-stage COPD. She has a history of purulent tracheobronchitis, acute on chronic hypoxemic and hypercapnic respiratory failure, probably oropharyngeal candidiasis, chronic and ongoing tobacco dependence, hypothyroidism, hypertension and anxiety. From the pulmonary standpoint, the patient seems to be doing relatively well. She continues to complain about an infection in her leg and also about difficulty in swallowing and pain in her neck. I did ask her to take up those issues with her hospital doctor. From the pulmonary standpoint doing well. Breathing better. No audible wheezing. She does not appear to be in any distress. Back down to her baseline oxygen requirements of 3 L per minute. Current vital signs include a temperature 98.4, heart rate 78, respiratory rate 20, blood pressure 146/79, mean 101. Appears in no acute distress. HEENT examination is grossly unremarkable. NECK: Supple. Full range of motion. No adenopathy. Cardiovascular examination reveals regular rhythm and rate. Heart rate 78. S1, S2 normal. Lungs reveal improved breath sounds. Still a few scattered expiratory rhonchi and wheezes. Breath sounds are diminished. Slight prolongation. No crackles. ABDOMEN: Soft. Bowel sounds are heard. Extremities are intact. The left lower extremity is wrapped with an Corky. No edema. Skin with some chronic venous stasis changes as well as some multiple ecchymoses. Neurologic examination is ( ), but nonfocal. Microbiology is all negative. Labs are reviewed. White count 12.8, hemoglobin 11.6, hematocrit 37.6, platelet count 273,000. Sodium 131, potassium 4, chloride 89, CO2 of 42. BUN and creatinine were 21 and 0.61. No recent x-rays to report. Medications are reviewed. ASSESSMENT: 1. Acute exacerbation of severe oxygen dependent chronic obstructive pulmonary disease complicated by purulent tracheobronchitis, without sandhya pneumonia. 2. Acute on chronic hypoxemic and hypercapnic respiratory failure. 3. Oropharyngeal candidiasis. 4. Chronic and ongoing tobacco dependence. 5. Hypothyroidism. 6. Hypertension. 7. Chronic anxiety. PLAN: The patient's medications are reviewed. We will see if we cannot consolidate and pare down her breathing medications. Her lungs are behaving much more normally for her. This is probably her baseline. There may be other issues keeping her including the difficulty swallowing and the lower extremity infection. Additional recommendations and suggestions are forthcoming. Prognosis is very guarded. MTDD
[2017-01-21 17:09] LABS: Glucose,Whole Blood 107 mg/dL (75-99)
[2017-01-21] MEDS: SYMBICORT 160-4.5 MCG INHALER INHALATION SCH (19:22)
--- NOTE | 2017-01-21 20:25 | PN ---
DATE OF SERVICE: 01/21/17 REASON FOR FOLLOW UP: Left leg wound and cellulitis. INTERVAL HISTORY: The patient is afebrile. Her breathing is slightly improved. Denies significant chest pain. Occasional cough. Overall pain and swelling to the left leg has improved compared to yesterday. On examination, blood pressure 148/76, pulse 92, temperature 98.7, she is 95% on 3 L nasal cannula. General description is an elderly female up in the bed in no distress. Respiratory system: Unlabored breathing. Decreased breath sounds at the bases. Heart: S1, S2 regular rate and rhythm. Abdomen soft, no tenderness. Left leg swelling and redness has slightly improved. Minimal drainage. LABS: Hemoglobin 11.3, white count 12.9, BUN 21, creatinine 0.61. DIAGNOSTIC IMPRESSION AND PLAN: Patient with left lower extremity wound with minimal cellulitis. The patient currently responding to the IV Vanco in addition to local wound care with Santyl. We will plan to finish therapy with oral ( ). Continue supportive care. MTDD
[2017-01-21 20:52] LABS: Glucose,Whole Blood 194 mg/dL (75-99)
[2017-01-21] MEDS ORDERED: FLUCONAZOLE IN NACL,ISO-OSM 200 MG in SALINE 1 100ML.BAG IVPB SCH (21:15)
[2017-01-22 07:03] LABS: Basophils % (A) 0 %; CH 30.1; CHCM 31.3; Eosinophils # (A) 0.1 k/uL (0-0.7); Eosinophils % (A) 1 %; HCT 41.5 % (34.0-46.0); HDW 2.35; Luc # (Auto) 0.37; Luc % (Auto) 3; Lymphocytes # (A) 2.2 k/uL (1.0-4.8); Lymphocytes % (A) 19 %; MCH 30.2 pg (25.0-35.0); MCHC 31.3 g/dL (31.0-37.0); MCV 96.5 fL (80.0-100.0); Mean Platelet Volume 6.8; Monocytes # (A) 0.5 k/uL (0-1.0); Monocytes % (A) 4 %; Neutrophils # (A) 8.6 k/uL (1.3-7.7); Neutrophils % (A) 73 %; RBC 4.31 m/uL (3.80-5.40); RDW 13.1 % (11.5-15.5); WBC 11.8 k/uL (3.8-10.6); WBC (Perox) 12.51
[2017-01-22 07:18] LABS: Blood Urea Nitrogen 23 mg/dL (7-17); Calcium 9.4 mg/dL (8.4-10.2); Chloride 88 mmol/L (98-107); Glucose 88 mg/dL (74-99); Non-African American GFR(MDRD) >60 (>60 ml/min/1.73 sqM); Potassium 4.5 mmol/L (3.5-5.1); Sodium 132 mmol/L (137-145)
[2017-01-22] MEDS: IPRATROPIUM 0.5 MG/2.5 ML NEBU INHALATION SCH ×4 (07:20→20:04)
[2017-01-22] MEDS: LEVALBUTEROL NEB (CONC) 1.25 MG/0.5 ML AMP INHALATION SCH ×4 (07:20→20:04)
[2017-01-22 07:26] LABS: Anion Gap 2 mmol/L
[2017-01-22 07:28] LABS: Carbon Dioxide 42 mmol/L (22-30)
[2017-01-22 07:46] LABS: Glucose,Whole Blood 86 mg/dL (75-99)
[2017-01-22] MEDS: SYMBICORT 160-4.5 MCG INHALER INHALATION SCH ×2 (08:03→20:04)
[2017-01-22] MEDS: VANCOMYCIN 1,500 MG in SODIUM CHLORIDE 0.9% 250 ML IVPB SCH ×2 (09:31→20:35)
[2017-01-22] MEDS: ENOXAPARIN 40 MG/0.4 ML SYRINGE SQ SCH (09:31)
[2017-01-22] MEDS: COLLAGENASE 250 UNIT/GM OINTMENT 30 GM TUBE TOPICAL SCH (09:32)
[2017-01-22] MEDS: LEVOTHYROXINE 125 MCG TAB PO SCH (09:32)
[2017-01-22] MEDS: LISINOPRIL 20 MG TAB PO SCH ×2 (09:32→20:34)
[2017-01-22] MEDS: DOXYCYCLINE 50 MG CAP PO SCH ×2 (09:32→20:34)
[2017-01-22] MEDS: ASPIRIN 81 MG CHEW PO SCH (09:32)
[2017-01-22] MEDS: LORATADINE 10 MG TAB PO SCH (09:32)
[2017-01-22] MEDS: predniSONE 10 MG TAB PO SCH (09:32)
[2017-01-22] MEDS: INSULIN LISPRO (humaLOG) 300 UNIT/3 ML VIAL SQ SCH ×4 (09:33→22:02)
[2017-01-22 11:38] LABS: Glucose,Whole Blood 153 mg/dL (75-99)
--- NOTE | 2017-01-22 11:42 | PN ---
DATE OF SERVICE: 01/21/2017 This is a 71-year-old woman who was admitted with COPD exacerbation, also has a possible esophageal candidiasis. Multiple consultants are following the patient closely. No chest pain or palpitation. Patient also had left leg cellulitis also. On exam, alert and oriented x2. The pulse is 97, blood pressure 148/76, respirations 20, temperature is 98.7, pulse ox 94% on 3 L. HEENT: Conjunctivae normal. NECK: No jugular venous distension. CARDIOVASCULAR SYSTEM: S1, S2, muffled. RESPIRATORY: Breath sounds diminished at the bases. Scattered rhonchi, no crackles, expiratory wheezing. ABDOMEN: Soft, nontender. LEGS: No edema, no swelling. NERVOUS SYSTEM: No focal deficits. LABS: WBC is 12.8, sodium 130, potassium 5. ASSESSMENT: 1. Chronic obstructive pulmonary disease acute exacerbation with acute purulent tracheobronchitis. 2. Esophageal candidiasis. 3. Left leg cellulitis and increased WBC. 4. Hypernatremia. 5. Hyperkalemia. 6. Diabetes mellitus type 2. RECOMMENDATION: In this 71-year-old woman who presented with multiple complex medical issues. Will monitor the patient closely. Continue with the current medications and symptomatic treatment. Otherwise, we will continue the IV steroids. Continue with antibiotics and antifungals. Further recommendations to follow. MTDD
--- NOTE | 2017-01-22 13:11 | P.PN ---
Subjective Principal diagnosis: Acute exacerbation of severe end-stage oxygen-dependent chronic obstructive pulmonary disease This is a very pleasant 71-year-old female patient who is admitted again for an acute exacerbation of her COPD. She does have Gold stage IV oxygen dependent COPD her FEV1 value is 28% of predicted. She had presented with recurrence of increasing shortness of breath cough and congestion. Unfortunately does continue to smoke. She is also had ongoing oropharyngeal candidiasis. She is seen again today in follow-up on the regular medical floor. She is awake and alert in no acute distress. Sitting up at the bedside. She states she is breathing better today as compared to yesterday. She is able kerion complete sentences without significant shortness of breath. She is maintaining good O2 saturations in the high 90s on 3 L/m per nasal cannula. She's been afebrile. Hemodynamically stable. Blood culture reveals no growth to date. White count 15.8. Hemoglobin 12.2. Sodium improving currently 130. She is seen again today 01/22/2017 in follow-up on the regular medical floor. She is awake and alert in no acute distress. She is breathing better today as compared to yesterday. She continues with a dry nonproductive cough. No chills or night sweats. He is maintaining good O2 saturations in the 90s on 3 L /m per nasal cannula. Afebrile. Blood and urine cultures reveal no growth to date. She remains on vancomycin, doxycycline and fluconazole. Objective - Vital Signs Vital signs: Vital Signs Temp 97.4 F L 01/22/17 07:00 Pulse 94 01/22/17 11:56 Resp 18 01/22/17 07:00 BP 166/87 01/22/17 07:00 Pulse Ox 99 01/22/17 07:00 Intake & Output 01/21/17 01/22/17 01/22/17 18:59 06:59 18:59 Intake Total 1000 670 Balance 1000 670 Intake: Intake, IV Titration 350 Amount Fluconazole in NaCl,Iso- 100 Osm 200 mg In Saline 1 100ml.bag @ 100 mls/hr IVPB DAILY@2100 [facility] Rx#: [id number] Vancomycin 1,500 mg In 250 Sodium Chloride 0.9% 250 ml @ 125 mls/hr IVPB BID [facility] Rx#:[id number] Oral 1000 320 Other: Voiding Method Bedside Commode Bedside Commode Bedside Commode # Voids 3 1 - Exam GENERAL EXAM: Alert, fairly comfortable in no apparent distress. HEAD: Normocephalic. EYES: Normal reaction of pupils, equal size. NOSE: Clear with pink turbinates. THROAT: No erythema or exudates. NECK: No masses, no JVD. CHEST: No chest wall deformity. LUNGS: Equal air entry with no wheezing. Diminished throughout. CVS: S1 and S2 normal with no audible murmurs, regular rhythm. ABDOMEN: No hepatosplenomegaly, normal bowel sounds, no guarding or rigidity. SPINE: No scoliosis or deformity SKIN: No rashes. There is multiple areas of ecchymosis and thin tissue secondary to chronic steroid use. CENTRAL NERVOUS SYSTEM: No focal deficits, tone is normal in all 4 extremities. Extremities: There is trace peripheral edema. No clubbing, no cyanosis. Peripheral pulses are intact. - Labs CBC & Chem 7: 01/22/17 06:36 01/22/17 06:36 Labs: Abnormal Lab Results - Last 24 Hours (Table) 01/21/17 01/21/17 01/22/17 Range/Units 17:07 20:48 06:36 WBC (3.8-10.6) k/uL Neutrophils # (1.3-7.7) k/uL Sodium 132 L (137-145) mmol/L Chloride 88 L (98-107) mmol/L Carbon Dioxide 42 H* (22-30) mmol/L BUN 23 H (7-17) mg/dL POC Glucose (mg/dL) 107 H 194 H (75-99) mg/dL 01/22/17 01/22/17 Range/Units 06:36 11:36 WBC 11.8 H (3.8-10.6) k/uL Neutrophils # 8.6 H (1.3-7.7) k/uL Sodium (137-145) mmol/L Chloride (98-107) mmol/L Carbon Dioxide (22-30) mmol/L BUN (7-17) mg/dL POC Glucose (mg/dL) 153 H (75-99) mg/dL Microbiology - Last 24 Hours (Table) 01/17/17 22:00 Blood Culture - Preliminary Blood No Growth after 96 hours Assessment and Plan Plan: Impression: #1 Acute exacerbation of severe end-stage chronic obstructive pulmonary disease. #2 Acute on chronic hypoxic respiratory failure secondary to above. #3 Acute on chronic hypercapnic respiratory failure secondary to above. #4 Oropharyngeal candidiasis. #5 Chronic and ongoing tobacco dependence. #6 Hypothyroidism. #7 Hypertension. #8 Anxiety. Plan: The patient was seen and evaluated by Dr. Alexis. We'll continue with her current medications. She remains on her bronchodilators, Symbicort, prednisone. She is on antibiotics in the form of vancomycin and doxycycline. Continue fluconazole. We will increase her activity as tolerated. She'll follow -up with Dr. Sears in the outpatient setting.
[2017-01-22] MEDS: ALPRAZolam 0.25 MG TAB PO PRN (15:08)
[2017-01-22 17:28] LABS: Glucose,Whole Blood 237 mg/dL (75-99)
[2017-01-22] MEDS: FLUCONAZOLE 100 MG TAB PO SCH (20:34)
[2017-01-22] MEDS: DOCUSATE 100 MG CAP PO SCH (20:35)
[2017-01-22 21:01] LABS: Glucose,Whole Blood 82 mg/dL (75-99)
[2017-01-23] MEDS: diphenhydrAMINE 50 MG CAP PO PRN (04:47)
[2017-01-23] MEDS: IPRATROPIUM-ALBUTEROL 3 ML NEB INHALATION SCH ×4 (07:08→20:45)
[2017-01-23] MEDS: SYMBICORT 160-4.5 MCG INHALER INHALATION SCH ×2 (07:08→20:45)
[2017-01-23 07:53] LABS: Glucose,Whole Blood 112 mg/dL (75-99)
[2017-01-23 08:17] LABS: Basophils # (A) 0.1 k/uL (0-0.2); Basophils % (A) 0 %; CH 30.5; CHCM 31.7; Eosinophils # (A) 0.1 k/uL (0-0.7); Eosinophils % (A) 1 %; HCT 38.7 % (34.0-46.0); HDW 2.34; HGB 11.9 gm/dL (11.4-16.0); Luc # (Auto) 0.41; Luc % (Auto) 3; Lymphocytes # (A) 2.2 k/uL (1.0-4.8); Lymphocytes % (A) 18 %; MCH 29.7 pg (25.0-35.0); MCHC 30.8 g/dL (31.0-37.0); MCV 96.5 fL (80.0-100.0); Monocytes # (A) 0.6 k/uL (0-1.0); Monocytes % (A) 5 %; Neutrophils # (A) 9.2 k/uL (1.3-7.7); Neutrophils % (A) 74 %; RBC 4.01 m/uL (3.80-5.40); RDW 13.9 % (11.5-15.5); WBC 12.5 k/uL (3.8-10.6); WBC (Perox) 12.57
[2017-01-23] MEDS: DOCUSATE 100 MG CAP PO SCH ×2 (08:26→20:26)
[2017-01-23] MEDS: ASPIRIN 81 MG CHEW PO SCH (08:26)
[2017-01-23] MEDS: ENOXAPARIN 40 MG/0.4 ML SYRINGE SQ SCH (08:26)
[2017-01-23] MEDS: LISINOPRIL 20 MG TAB PO SCH ×2 (08:26→20:26)
[2017-01-23] MEDS: INSULIN LISPRO (humaLOG) 300 UNIT/3 ML VIAL SQ SCH ×4 (08:27→21:27)
[2017-01-23] MEDS: VANCOMYCIN 1,500 MG in SODIUM CHLORIDE 0.9% 250 ML IVPB SCH (08:27)
[2017-01-23] MEDS: LEVOTHYROXINE 125 MCG TAB PO SCH (08:27)
[2017-01-23] MEDS: DOXYCYCLINE 50 MG CAP PO SCH (08:27)
[2017-01-23] MEDS: predniSONE 10 MG TAB PO SCH (08:27)
[2017-01-23] MEDS: LORATADINE 10 MG TAB PO SCH (08:27)
[2017-01-23] MEDS: COLLAGENASE 250 UNIT/GM OINTMENT 30 GM TUBE TOPICAL SCH (08:30)
[2017-01-23 09:44] LABS: Anion Gap 2 mmol/L; Blood Urea Nitrogen 22 mg/dL (7-17); Chloride 90 mmol/L (98-107); Glucose 88 mg/dL (74-99); Non-African American GFR(MDRD) >60 (>60 ml/min/1.73 sqM); Potassium 4.4 mmol/L (3.5-5.1); Sodium 132 mmol/L (137-145)
[2017-01-23 09:45] LABS: Carbon Dioxide 40 mmol/L (22-30)
--- NOTE | 2017-01-23 11:05 | PN ---
DATE OF SERVICE: 01/22/17 This 71-year-old woman was admitted with COPD, acute exacerbation, also had esophageal candidiasis. The patient is being closely monitored. The patient has left leg cellulitis also. PHYSICAL EXAMINATION: The patient is alert and oriented times three. Pulse 92. Blood pressure 160/87. Respiratory rate 18. Temperature 97.4. Pulse ox 99% on 3 L. HEENT: Conjunctivae normal. NECK: No JVD. No carotid bruit. CARDIOVASCULAR: S1. S2. RESPIRATORY: Breath sounds diminished at the bases. A few scattered rhonchi and crackles. ABDOMEN: Soft. Nontender. No mass palpable. LEGS: Left leg cellulitis present. NERVOUS SYSTEM: No focal deficits. ASSESSMENT: 1. Chronic obstructive pulmonary disease, acute exacerbation with acute purulent tracheobronchitis. 2. Esophageal candidiasis. 3. Left leg cellulitis. 4. Increased WBC. 5. Hyponatremia. 6. Hyperkalemia. 7. Diabetes mellitus, type 2. RECOMMENDATIONS AND DISCUSSION: Continue the current medications, continue with symptomatic treatment. Continue bronchodilators. Continue antibiotics. Tapering steroids. Closely follow with Dr. Alexis. Further recommendations to follow [facility]
[2017-01-23] MEDS ORDERED: LEVOTHYROXINE 125 MCG TAB PO SCH (11:17)
[2017-01-23] MEDS ORDERED: LEVOTHYROXINE 75 MCG TAB PO SCH (11:30)
[2017-01-23 11:52] LABS: Glucose,Whole Blood 203 mg/dL (75-99)
[2017-01-23] MEDS ORDERED: LEVOTHYROXINE 25 MCG TAB PO ONE (12:09)
[2017-01-23] MEDS: ALPRAZolam 0.25 MG TAB PO PRN (13:53)
[2017-01-23] MEDS: CEFEPIME 2 GM in SODIUM CHLORIDE 0.9% 50 ML IVPB SCH ×2 (13:53→20:25)
--- NOTE | 2017-01-23 14:36 | PN ---
DATE OF SERVICE: 01/22/17 REASON FOR FOLLOW UP: Left lower extremity wound and cellulitis. INTERVAL HISTORY: The patient is afebrile. She is feeling better. Still complaining of pain and swelling to the left foot area. The patient denies significant chest pain and shortness of breath, cough. No abdominal pain or diarrhea. On examination, blood pressure 143/87, pulse 100, temperature 98.2. She is 95 % on 3 L nasal cannula. General description is an elderly female up in the bed in no distress. Respiratory system: Unlabored breathing. Clear to auscultation anteriorly. Heart: S1, S2 regular rate and rhythm. Abdomen soft, no tenderness. Left foot swelling. Some minimal redness and superficial wound and some slough tissue. LABS: Hemoglobin 13, white count 11.8 with a BUN of 23. Creatinine 0.60. DIAGNOSTIC IMPRESSION AND PLAN: Patient with left lower extremity wound with secondary cellulitis. The patient is currently covered with Vancomycin, local wound care with Santyl. We will continue to monitor closely. Follow-up on the culture. Continue supportive care. SUKUMAR
[2017-01-23 17:18] LABS: Glucose,Whole Blood 232 mg/dL (75-99)
[2017-01-23] MEDS: FLUCONAZOLE 100 MG TAB PO SCH (20:26)
[2017-01-23 20:54] LABS: Glucose,Whole Blood 141 mg/dL (75-99)
[2017-01-24] MEDS: IPRATROPIUM-ALBUTEROL 3 ML NEB INHALATION SCH ×3 (07:16→15:16)
[2017-01-24] MEDS: SYMBICORT 160-4.5 MCG INHALER INHALATION SCH (07:16)
[2017-01-24 07:33] LABS: Glucose,Whole Blood 91 mg/dL (75-99)
[2017-01-24 07:57] LABS: Basophils # (A) 0.1 k/uL (0-0.2); Basophils % (A) 1 %; CH 30.5; CHCM 31.5; Eosinophils # (A) 0.1 k/uL (0-0.7); Eosinophils % (A) 1 %; HCT 38.1 % (34.0-46.0); HDW 2.31; HGB 11.7 gm/dL (11.4-16.0); Luc # (Auto) 0.38; Luc % (Auto) 3; Lymphocytes # (A) 2.1 k/uL (1.0-4.8); Lymphocytes % (A) 17 %; MCH 29.8 pg (25.0-35.0); MCHC 30.7 g/dL (31.0-37.0); MCV 97.2 fL (80.0-100.0); Mean Platelet Volume 7.1; Monocytes # (A) 0.7 k/uL (0-1.0); Monocytes % (A) 5 %; Neutrophils # (A) 9.2 k/uL (1.3-7.7); Neutrophils % (A) 74 %; RBC 3.93 m/uL (3.80-5.40); RDW 13.9 % (11.5-15.5); WBC 12.4 k/uL (3.8-10.6); WBC (Perox) 12.29
[2017-01-24] MEDS: INSULIN LISPRO (humaLOG) 300 UNIT/3 ML VIAL SQ SCH ×3 (08:08→18:07)
[2017-01-24] MEDS: DOCUSATE 100 MG CAP PO SCH (08:10)
[2017-01-24] MEDS: CEFEPIME 2 GM in SODIUM CHLORIDE 0.9% 50 ML IVPB SCH (08:10)
[2017-01-24] MEDS: ENOXAPARIN 40 MG/0.4 ML SYRINGE SQ SCH (08:10)
[2017-01-24] MEDS: LORATADINE 10 MG TAB PO SCH (08:10)
[2017-01-24] MEDS: ASPIRIN 81 MG CHEW PO SCH (08:10)
[2017-01-24] MEDS: LISINOPRIL 20 MG TAB PO SCH (08:11)
[2017-01-24] MEDS: predniSONE 10 MG TAB PO SCH (08:11)
[2017-01-24 08:20] LABS: Anion Gap 4 mmol/L; Blood Urea Nitrogen 23 mg/dL (7-17); Calcium 8.9 mg/dL (8.4-10.2); Carbon Dioxide 35 mmol/L (22-30); Chloride 93 mmol/L (98-107); Glucose 85 mg/dL (74-99); Non-African American GFR(MDRD) >60 (>60 ml/min/1.73 sqM); Potassium 4.7 mmol/L (3.5-5.1); Sodium 132 mmol/L (137-145)
--- NOTE | 2017-01-24 10:49 | PN ---
71-year-old female well known to our service. She was admitted with COPD exacerbation. She has had multiple admissions recently with same. Doing better from the pulmonary standpoint, breathing better. The patient is mostly complaining of the fact that she has a soreness in her throat. She thinks she has a yeast infection. She wanted ear, nose and throat to come and see her because Dr. Ellis has seen her in the past. The patient denies any chest pain or chest discomfort. Not coughing up any phlegm. No difficulty in her breathing. No fever, no chills. No nausea, vomiting or diarrhea. Currently her temperature is 97.9, heart rate 80, respiratory rate 16, blood pressure 165/74, mean 104. 2 liter saturation 98%. Appears in no acute distress. HEENT: Grossly unremarkable. Mucous membranes are moist. NECK: Supple. Full range of motion. No adenopathy, thyromegaly or neck vein distention. CARDIOVASCULAR: Reveals regular rhythm and rate. Heart rate 80. S1/S2 normal. There is no murmur. LUNGS: Reveal mostly clear but diminished breath sounds. No wheezes or rhonchi. No crackles. Breath sounds are equal. ABDOMEN: Soft. Bowel sounds are heard. There are no masses or tenderness. EXTREMITIES: Reveal some mild edema. No cyanosis or clubbing. SKIN: Without rash. Labs are reviewed. White count 12.5, hemoglobin 11.9, hematocrit 38.7, platelet count 388,000. Sodium 132, potassium 4.4, chloride 90, CO2 of 40. BUN and creatinine were 22 and 0.66. Her TSH is 7.370. Microbiology shows a wound from her left foot showing gram negative bacilli. It has not been identified as yet. No recent chest x-ray. ASSESSMENT: 1. Chronic obstructive pulmonary disease exacerbation in a patient with GOLD Stage 4 disease. 2. Acute on chronic hypoxemic and hypercapnic respiratory failure. 3. Oropharyngeal and possibly esophageal candidiasis causing the patient to have the dysphagia. 4. Chronic and ongoing tobacco dependence. 5. Hypothyroidism. 6. Hypertension. 7. Anxiety. 8. Nonhealing ulcer of left foot. PLAN: The patient's medications are reviewed. We did switch her to oral prednisone from IV Solu-Medrol. The rest of her medications seem appropriate. The gram negative bacilli from the wound has not been identified. Additional recommendations and suggestions forthcoming . Prognosis is guarded. She is on prednisone 30 mg a day . She is also getting Symbicort as well as her updrafts. Will continue to follow. SUKUMAR
[2017-01-24 11:25] LABS: Glucose,Whole Blood 201 mg/dL (75-99)
--- NOTE | 2017-01-24 12:44 | PN ---
DATE OF SERVICE: 01/23/2017 This is a 71-year-old woman who was admitted with COPD acute exacerbation. Also had esophageal candidiasis. Patient also had left leg cellulitis which is improving also. Patient also complaining of some dysphagia, chest discomfort, neck discomfort last night. PAST MEDICAL HISTORY: Reviewed. REVIEW OF SYSTEMS: CARDIOVASCULAR SYSTEM: As mentioned earlier. GI: No nausea, vomiting. : As mentioned earlier. NERVOUS SYSTEM: No numbness or weakness. Current medication are reviewed include Ventolin p.r.n, DuoNeb q.i.d. and p.r.n. , Xanax 0.5 t.i.d., aspirin 81 mg, Colace, Benadryl p.r.n., Vibramycin 100 mg p.o. b.i.d., Diflucan 200 mg q.h.s., Humalog, Synthroid 150 mg p.o. daily, Zestril 20 mg p.o. daily. PHYSICAL EXAM: Patient is alert and oriented x3. Pulse is 80, blood pressure 165/75, respirations 16, temperature is 97.8, pulse ox 98% on 2 L. HEENT: Conjunctivae normal. NECK: No jugular venous distension. CARDIOVASCULAR SYSTEM: S1, S2, muffled. RESPIRATORY: Breath sounds diminished at the bases, a few scattered rhonchi, no crackles, respiratory wheezing also present. ABDOMEN: Soft, nontender. LEGS: No edema, swelling. NERVOUS SYSTEM: No focal labs. LABS: WBC is 12.5, hemoglobin is 11.9, sodium 132 and TSH is 7.3. ASSESSMENT: 1. Chronic obstructive pulmonary disease acute exacerbation with acute purulent tracheobronchitis. 2. Esophageal candidiasis. 3. Chest discomfort for evaluation for coronary artery disease. 4. Left leg cellulitis. 5. Increased WBC. 6. Hyponatremia. 7. Hyperkalemia. 8. Diabetes mellitus type 2. RECOMMENDATION: In this 71-year-old woman who presented with multiple complex medical issues, will monitor the patient closely. Continue with the current medication and symptomatic treatment. Recommend the staff for repeat troponins , EKG and also consult Dr. Torres for the dysphagia. Continue with the Diflucan and other medications. Prognosis guarded because of the multiple complex medical issues and further recommendations to follow. Also gram-negative bacilli from the wound. Final ID is pending at this time. Continue to monitor. RECOMMENDATION: MTDD
[2017-01-24 16:21] VITALS: BP 143/73; PULSE 114; RESP 16; TEMP 98.1
--- NOTE | 2017-01-24 16:38 | P.PN ---
Subjective This is a 71-year-old female with a history of very severe or end-stage COPD. Her FEV1 is 28% of predicted. She was admitted with a diagnosis of hypoxia make respiratory failure with chronic hypercapnia. Chest x-ray showed no evidence of pneumonia. She has a history of hypothyroidism hypertension anxiety ongoing tobacco use and oropharyngeal candidiasis. Clinically the patient is improving. She is less short of breath. She is still having some soreness in her posterior oropharynx. On examination, there is no thrush. She also has a stage II left lower extremity which seems to be healing. The base is covered with some liquid the somewhat purulent material. No surrounding select is at this point. She claims that the wound itself is been improving. Objective - Vital Signs Vital signs: Vital Signs Temp 98.1 F 01/24/17 15:00 Pulse 80 01/24/17 15:29 Resp 16 01/24/17 15:00 BP 143/73 01/24/17 15:00 Pulse Ox 93 L 01/24/17 15:00 Intake & Output 01/23/17 01/24/17 01/24/17 18:59 06:59 18:59 Intake Total 50 Balance 50 Intake: Intake, IV Titration 50 Amount Cefepime 2 gm In Sodium 50 Chloride 0.9% 50 ml @ 100 mls/hr IVPB Q12HR [facility] Rx #:[id number] Other: Voiding Method Bedside Commode Bedside Commode # Voids 3 1 2 # Bowel Movements 1 - Exam Head exam was generally normal. There was no scleral icterus or corneal arcus. Mucous membranes were moist.Neck was supple and without jugular venous distension, thyromegaly, or carotid bruits. Carotids were easily palpable bilaterally. There was no adenopathy. Lung sounds are diminished bilaterally along with some few scattered expiratory wheeze. There is also some rhonchi bilaterally.Cardiac exam revealed the PMI to be normally situated and sized. The rhythm was regular and no extrasystoles were noted during several minutes of auscultation. The first and second heart sounds were normal and physiologic splitting of the second heart sound was noted. There were no murmurs, rubs, clicks, or gallops.Abdominal exam revealed normal bowel sounds. The abdomen was soft, non-tender, and without masses, organomegaly, or appreciable enlargement of the abdominal aorta. Extremities reveal a 2 x 1 cm anterior left foot wound which is stage II with some surrounding erythema. Doubt cellulitis. The lesion itself is covered by a clear base. Pulses are diminished at the present at this point. - Labs CBC & Chem 7: 01/24/17 07:28 01/24/17 07:28 Labs: Abnormal Lab Results - Last 24 Hours (Table) 01/23/17 01/23/17 01/24/17 Range/Units 17:16 20:40 07:28 WBC (3.8-10.6) k/uL MCHC (31.0-37.0) g/dL Neutrophils # (1.3-7.7) k/uL Sodium 132 L (137-145) mmol/L Chloride 93 L (98-107) mmol/L Carbon Dioxide 35 H (22-30) mmol/L BUN 23 H (7-17) mg/dL POC Glucose (mg/dL) 232 H 141 H (75-99) mg/dL 01/24/17 01/24/17 Range/Units 07:28 11:10 WBC 12.4 H (3.8-10.6) k/uL MCHC 30.7 L (31.0-37.0) g/dL Neutrophils # 9.2 H (1.3-7.7) k/uL Sodium (137-145) mmol/L Chloride (98-107) mmol/L Carbon Dioxide (22-30) mmol/L BUN (7-17) mg/dL POC Glucose (mg/dL) 201 H (75-99) mg/dL Microbiology - Last 24 Hours (Table) 01/17/17 22:00 Blood Culture - Final Blood No Growth after 144 hours Assessment and Plan Plan: Assessment 1 acute COPD exacerbation, improving 2 acute bronchitis, improving 3 chronic dyspnea secondary to above 4 oropharyngeal and possible esophageal candidiasis 5 diabetes mellitus type 2 6 left lower extremity wound, stage II. Plan The patient will be discharged home on a prednisone burst taper, she'll be completing a course of Diflucan outpatient basis, Symbicort as a maintenance treatment for COPD and addition to DuoNeb neb last treatment [id number], local wound care and topical antibiotics and follow with a primary care physician and Dr. Sears on outpatient basis.
[2017-01-24 16:57] LABS: Glucose,Whole Blood 170 mg/dL (75-99)
[2017-01-24] MEDS: COLLAGENASE 250 UNIT/GM OINTMENT 30 GM TUBE TOPICAL SCH (17:02)
--- NOTE | 2017-01-24 17:17 | PN ---
DATE OF SERVICE: 01/23/17 REASON FOR FOLLOW UP: Left leg wound and cellulitis. INTERVAL HISTORY: The patient is afebrile. She is breathing slightly comfortably. The patient denies significant chest pain, occasional cough, no abdominal pain or any worsening pain in the left foot area. On examination, blood pressure 137/78, pulse 82, temperature 97.8. She is 92 % on 2 L nasal cannula. General description is an elderly female up in the bed in no distress. Respiratory system: Unlabored breathing. Decreased breath sounds at the base. No wheeze. Heart: S1, S2 regular rate and rhythm. Abdomen soft, no tenderness. Left foot swelling and redness has slightly improved. LABS: Hemoglobin 11.9, white count 12.5, BUN 22, creatinine 0.66. Wound culture now showing gram negative bacilli. DIAGNOSTIC IMPRESSION AND PLAN: Patient with left leg wound with secondary cellulitis, culture has now been showing gram negative bacilli. Antibiotics have been adjusted to Cefepime, 2 gm q12. The patient does have history of PENICILLIN ALLERGY but no anaphylaxis. Will discontinue the Vancomycin. Discharge antibiotic on the basis of the culture report. Continue support care. ERICKAD
--- NOTE | 2017-01-24 17:19 | P.DS ---
Providers Date of admission: 01/18/17 00:03 Attending physician: Chava Limon Consults: 01/17/17 23:55 Consult Physician Stat Consulting Provider: Chris Sears Consult Reason/Comments: Acute exacerbation of COPD Do you want consulting provider notified?: Yes 01/18/17 14:23 Consult Physician Routine Consulting Provider: Mike Funes Consult Reason/Comments: left lower leg wounds and return admission for Copd Do you want consulting provider notified?: Yes 01/23/17 11:49 Consult Physician ONCE Consulting Provider: Liliya Torres Consult Reason/Comments: candidiasis in the throat Do you want consulting provider notified?: Yes Primary care physician: Chris Sears [facility] Course: Fortunato 71-year-old female with end-stage COPD comes in to the hospital with the, complains of difficulty with swallowing. Patient apparently has been evaluated with ENT physician on an outpatient basis was noted to have oropharyngeal candidiasis Patient was started on Diflucan on admission Patient states that her breathing has improved during the hospital physician has been on steroids for the last 3 months intermittently Patient is seen by Dr. Mccormick She was also noted to have a left foot ulcer on the top of the foot appears to be tender however with the wound care patient's symptoms are improved over the last few days there appears to be some purulent material Today lungs appear to show diminished breath sounds no rhonchi wheezing or crackles Heart S1-S2 heard regular rate and rhythm no murmurs appreciated Abdomen is soft nontender no organomegaly Lower extremity left lower extremity there is some tenderness around the point of ulcer with some expression of pus #1 Discharge diagnoses #1 acute COPD exacerbation which is improved #2 oropharyngeal candidiasis #3 left lower extremity wound with some associated cellulitis #4 diabetes mellitus type 2 #5 end-stage COPD Plan Will be discharged home on prednisone. This should be tapered on an outpatient basis To complete a course of antibiotics with doxycycline To complete a course of Diflucan for total of 10 days Wound care instructions have been given by our staff Patient Condition at Discharge: Fair Plan - Discharge Summary New Discharge Prescriptions: New Fluconazole [Diflucan] 200 mg PO HS #3 tab predniSONE 10 mg PO DAILY #20 tab Doxycycline Hyclate 100 mg PO BID #10 tab Continue Levothyroxine Sodium [Synthroid] 125 mcg PO DAILY Budesonide-Formot 160-4.5 Mcg [Symbicort 160-4.5 Mcg Inhaler] 2 puff INHALATION RT-BID Lisinopril [Zestril] 20 mg PO BID Ipratropium-Albuterol Nebulize [Duoneb 0.5 mg-3 mg/3 ml Soln] 3 ml INHALATION RT-Q4H PRN PRN Reason: Shortness Of Breath Albuterol Sulfate [Proair Hfa] 2 puff INHALATION RT-Q6H PRN PRN Reason: Shortness Of Breath Aspirin EC [Ecotrin Low Dose] 81 mg PO DAILY Loratadine [Claritin] 10 mg PO DAILY Potassium Chloride [Klor-Con 10] 10 meq PO DAILY Furosemide [Lasix] 20 mg PO DAILY guaiFENesin SYRUP 100MG/5ML [Robitussin] 200 mg PO Q6H PRN PRN Reason: Cough Discontinued predniSONE See Taper PO DAILY Sulfamethox-Tmp 800-160Mg [Bactrim DS 800-160 mg] 1 tab PO Q12H Discharge Medication List Budesonide-Formot 160-4.5 Mcg [Symbicort 160-4.5 Mcg Inhaler] 2 puff INHALATION RT-BID 12/11/13 [History] Levothyroxine Sodium [Synthroid] 125 mcg PO DAILY 12/11/13 [History] Lisinopril [Zestril] 20 mg PO BID 12/11/13 [History] Albuterol Sulfate [Proair Hfa] 2 puff INHALATION RT-Q6H PRN 01/08/16 [History] Ipratropium-Albuterol Nebulize [Duoneb 0.5 mg-3 mg/3 ml Soln] 3 ml INHALATION RT -Q4H PRN 01/08/16 [History] Aspirin EC [Ecotrin Low Dose] 81 mg PO DAILY 12/10/16 [History] Loratadine [Claritin] 10 mg PO DAILY 12/11/16 [History] Furosemide [Lasix] 20 mg PO DAILY 01/17/17 [History] Potassium Chloride [Klor-Con 10] 10 meq PO DAILY 01/17/17 [History] guaiFENesin SYRUP 100MG/5ML [Robitussin] 200 mg PO Q6H PRN 01/17/17 [History] Doxycycline Hyclate 100 mg PO BID #10 tab 01/24/17 [Rx] Fluconazole [Diflucan] 200 mg PO HS #3 tab 01/24/17 [Rx] predniSONE 10 mg PO DAILY #20 tab 01/24/17 [Rx] Follow up Appointment(s)/Referral(s): Chris Sears MD [Primary Care Provider] - 01/27/17 9:45 am Aron Trotter MD [STAFF PHYSICIAN] - 01/31/17 12:30 pm [facility] Visiting Nurse, [NON-STAFF] - Patient Instructions/Handouts: COPD (Chronic Obstructive Pulmonary Disease) ( GEN), Energy Conservation Techniques (GEN), Nutrition Guidelines for People with COPD (GEN) Activity/Diet/Wound Care/Special Instructions: HEART HEALTHY DIET ACTIVITY TOLERATED Discharge Disposition: HOME WITH HOME HEALTH SERVICES
--- NOTE | 2017-01-25 09:34 | PN ---
DATE OF SERVICE: 01/24/2017 Reason for follow up is left foot wound and cellulitis. INTERVAL HISTORY: The patient was seen on rounds early this afternoon. The patient has been breathing more comfortably. Pain and swelling to the left leg foot area slightly improved. Patient denies significant chest pain, shortness of breath or cough. No abdominal pain or diarrhea. On examination, blood pressure 143/73 with pulse of 140. Temperature 98.1. She is 93% on 2-L nasal cannula. General description is an elderly female up in the chair in no distress. RESPIRATORY: Unlabored breathing. Decreased breath sounds in bases. HEART: S1, S2 regular rate and rhythm. ABDOMEN: Soft, no tenderness. Left foot swelling and redness has slightly improved. No drainage. LABS: Hemoglobin is 9.7, white count 5.4, BUN 93, creatinine 0.59. Wound culture showed gram negative. DIAGNOSTIC IMPRESSION AND PLAN: Patient with left foot wound with secondary cellulitis. Wound is growing gram negative, currently on Silvadene. That will be planned to be continued until cultures are finalized to determine discharge antibiotics. Continue supportive care. SUKUMAR
== END 2017-01-24 18:29 | disposition home health service (06) | DRG 190 ==
LOC: EC 21:26 → 5MS5E 01-18 00:03
PROVIDERS: ADMIT Hospitalist; ATTEND Hospitalist
DX: J44.0 Chronic obstructive pulmonary disease with (acute) lower respiratory infection (principal); J96.22 Acute and chronic respiratory failure with hypercapnia; J96.21 Acute and chronic respiratory failure with hypoxia; B37.89 Other sites of candidiasis; B37.0 Candidal stomatitis; E11.621 Type 2 diabetes mellitus with foot ulcer; B37.81 Candidal esophagitis; E87.1 Hypo-osmolality and hyponatremia; L03.116 Cellulitis of left lower limb; I27.2 Other secondary pulmonary hypertension; J44.1 Chronic obstructive pulmonary disease with (acute) exacerbation; E11.65 Type 2 diabetes mellitus with hyperglycemia; Z99.81 Dependence on supplemental oxygen; E87.5 Hyperkalemia; R13.10 Dysphagia, unspecified; J20.9 Acute bronchitis, unspecified; R53.1 Weakness; L97.529 Non-pressure chronic ulcer of other part of left foot with unspecified severity; B96.89 Other specified bacterial agents as the cause of diseases classified elsewhere; E11.628 Type 2 diabetes mellitus with other skin complications; T38.0X5A Adverse effect of glucocorticoids and synthetic analogues, initial encounter; I10 Essential (primary) hypertension; E03.9 Hypothyroidism, unspecified; I87.8 Other specified disorders of veins; R23.3 Spontaneous ecchymoses; M19.90 Unspecified osteoarthritis, unspecified site; K75.9 Inflammatory liver disease, unspecified; R07.89 Other chest pain; M54.2 Cervicalgia; F41.9 Anxiety disorder, unspecified; F17.200 Nicotine dependence, unspecified, uncomplicated; Z79.899 Other long term (current) drug therapy; Z88.0 Allergy status to penicillin; Z80.0 Family history of malignant neoplasm of digestive organs; Z79.51 Long term (current) use of inhaled steroids; Z88.1 Allergy status to other antibiotic agents; Z88.8 Allergy status to other drugs, medicaments and biological substances; Z80.8 Family history of malignant neoplasm of other organs or systems; Z98.51 Tubal ligation status; Z90.710 Acquired absence of both cervix and uterus; Z86.79 Personal history of other diseases of the circulatory system; Z79.2 Long term (current) use of antibiotics; Z79.82 Long term (current) use of aspirin; Z79.52 Long term (current) use of systemic steroids; Z98.49 Cataract extraction status, unspecified eye
CPT/HCPCS: 36415; 71020; 80048; 80053; 80202; 81003; 82550; 82553; 82570; 83036; 83605; 83880; 83930; 83935; 84300; 84439; 84443; 84484; 85025; 85379; 85610; 85730; 87040; 87070; 87077; 87086; 87186; 87205; 93005; 94640; 94760; 96361; 96365; 96375; 99285

== ENCOUNTER → 2017-01-28 | Outpatient (CLI) | payer MEDICARE, BC ==
--- NOTE | 2017-01-28 12:01 | FL ---
MODIFIED SWALLOW / DEGLUTITION STUDY DATE OF EXAM: 01/28/2017 CLINICAL HISTORY: 71-year-old female Dysphagia. Patient with COPD and thrush with sensation of food s ticking in throat. TECHNIQUE: Deglutition study is performed utilizing thin liquid barium, honey and nectar thick liqui d barium, barium thick applesauce, and barium coated cracker. COMPARISON: None. FINDINGS: The oral and pharyngeal phases show satisfactory initiation and propagation with all modalities teste d. Normal mastication is seen with solid modalities tested. There is no evidence of penetration or aspiration with any modality tested. No significant pharyngeal residue was appreciated. There is cri copharyngeal thickening noted. IMPRESSION: Cricopharyngeal thickening versus intermittent spasm. Otherwise, normal deglutition stud y. Please refer to speech therapist notes for further details if necessary.
== END | disposition home or self-care (01) ==
LOC: RADFLMAIN 11:02
PROVIDERS: ATTEND Internal Medicine
DX: R13.10 Dysphagia, unspecified (principal); Z88.1 Allergy status to other antibiotic agents; Z88.8 Allergy status to other drugs, medicaments and biological substances
CPT/HCPCS: 74230

== ENCOUNTER → 2017-02-23 | Outpatient (CLI) | payer MEDICARE, BC | END | disposition home or self-care (01) | LOC: LABWHC1 14:49 | PROVIDERS: ATTEND Thoracic Surgery (Cardiothoracic Vascular Surgery) | DX: M79.604 Pain in right leg (principal); M79.605 Pain in left leg | CPT/HCPCS: 36415; 84134 ==

== ENCOUNTER 2017-03-12 20:25 | Emergency (ER) | payer MEDICARE, BC ==
--- NOTE | 2017-03-12 21:21 | ED ---
Weakness HPI - General Chief complaint: Weakness Stated complaint: SOB Time Seen by Provider: 03/12/17 20:28 Source: patient Mode of arrival: wheelchair Limitations: no limitations - History of Present Illness Initial comments: This patient is a 71-year-old woman who presents because she is having generalized weakness and fatigue going on for about 5 days. The patient is concerned that this may be related to the course of Levaquin that she was given. It sounds like she was prescribed this for ulcers that were not healing on her bilateral foot and ankle. The patient is concerned also this may be related to her thyroid as she states it sounds like this medicine was recently changed for her. The patient denies any focal weakness. She has not noted a fever or chills. She denies chest pain. She does have some shortness of breath but states that she has very poor "lung capacity" due to COPD. She also notes that she is on a prednisone taper and is wondering if perhaps her dose of prednisone was not high enough. She denies vomiting or change in bowel movements. No change in urination. MD Complaint: generalized weakness, lack of energy Onset/Timin -: days(s) Location: generalized Severity: moderate Consistency: constant Improves with: none Worsens with: exertion Context: new medication, recent illness Associated Symptoms: denies other symptoms - Related Data Home Medications Medication Instructions Recorded Confirmed Budesonide-Formot 160-4.5 Mcg 2 puff INHALATION RT-BID 12/11/13 03/12/17 [Symbicort 160-4.5 Mcg Inhaler] Levothyroxine Sodium [Synthroid] 125 mcg PO DAILY 12/11/13 03/12/17 Lisinopril [Zestril] 20 mg PO BID 12/11/13 03/12/17 Albuterol Sulfate [Proair Hfa] 2 puff INHALATION RT-Q6H PRN 01/08/16 03/12/17 Ipratropium-Albuterol Nebulize 3 ml INHALATION RT-Q4H PRN 01/08/16 03/12/17 [Duoneb 0.5 mg-3 mg/3 ml Soln] Aspirin EC [Ecotrin Low Dose] 81 mg PO DAILY 12/10/16 03/12/17 Loratadine [Claritin] 10 mg PO DAILY 12/11/16 03/12/17 Furosemide [Lasix] 20 mg PO DAILY 01/17/17 03/12/17 Potassium Chloride [Klor-Con 10] 10 meq PO DAILY 01/17/17 03/12/17 guaiFENesin SYRUP 100MG/5ML 200 mg PO Q6H PRN 01/17/17 03/12/17 [Robitussin] ALPRAZolam [Xanax] 0.25 mg PO TID PRN 02/23/17 03/12/17 Previous Rx's Medication Instructions Recorded Fluconazole [Diflucan] 200 mg PO HS #3 tab 01/24/17 predniSONE 10 mg PO DAILY #20 tab 01/24/17 Allergies Allergy/AdvReac Type Severity Reaction Status Date / Time prednisone Allergy Severe SOB Verified 03/09/17 13:31 bacitracin Allergy Rash/Hives Verified 03/09/17 13:31 [From Neosporin ([id number])] neomycin Allergy Rash/Hives Verified 03/09/17 13:31 [From Neosporin ([id number])] Penicillins Allergy Rash/Hives Verified 03/09/17 13:31 polymyxin B Allergy Rash/Hives Verified 03/09/17 13:31 [From Neosporin ([id number])] levofloxacin [From Levaquin] AdvReac WEAKNESS Verified 03/09/17 13:31 ELDA/POLY/DEX Allergy Rash/Hives Uncoded 03/09/17 13:31 Review of Systems ROS Statement: Those systems with pertinent positive or pertinent negative responses have been documented in the HPI. ROS Other: All systems not noted in ROS Statement are negative. Constitutional: Reports: weakness. Denies: fever, chills Eyes: Denies: vision change Respiratory: Reports: as per HPI, cough, dyspnea (Baseline) Cardiovascular: Reports: dyspnea on exertion. Denies: chest pain, palpitations , orthopnea, edema, syncope Endocrine: Reports: fatigue Gastrointestinal: Denies: abdominal pain, vomiting, diarrhea Genitourinary: Denies: dysuria, hematuria Musculoskeletal: Denies: back pain Skin: Reports: lesions (Skin ulcers.). Denies: rash Neurological: Denies: headache Past Medical History Past Medical History: Chest Pain / Angina, COPD, Hypertension, Osteoarthritis ( OA), Thyroid Disorder Additional Past Medical History / Comment(s): Advanced COPD, chronic hypoxic respiratory failure, former smoker, hypertension, hypothyroidism, skeletal chest wall pain, chronic anxiety ,leg and foot wounds History of Any Multi-Drug Resistant Organisms: None Reported Past Surgical History: Heart Catheterization, Hysterectomy, Tubal Ligation Additional Past Surgical History / Comment(s): cataracts removed Past Anesthesia/Blood Transfusion Reactions: Previous Problems w/ Anesthesia, Postoperative Nausea & Vomiting (PONV) Additional Past Anesthesia/Blood Transfusion Reaction / Comment(s): oxygen was "low" post op, nausea one time Past Psychological History: Anxiety Smoking Status: Former smoker Past Alcohol Use History: None Reported Past Drug Use History: None Reported - Past Family History Mother History Unknown: Yes Family Medical History: Cancer, Thyroid Disorder Additional Family Medical History / Comment(s): Liver Cancer Father History Unknown: Yes Family Medical History: Cancer General Exam Limitations: no limitations General appearance: alert, in no apparent distress Head exam: Present: atraumatic, normocephalic, normal inspection Eye exam: Present: normal appearance. Absent: scleral icterus, conjunctival injection ENT exam: Present: normal oropharynx Neck exam: Present: normal inspection Respiratory exam: Present: wheezes, decreased breath sounds, prolonged expiratory. Absent: normal lung sounds bilaterally, respiratory distress, rales , rhonchi, stridor, accessory muscle use Cardiovascular Exam: Present: regular rate, normal rhythm, normal heart sounds. Absent: systolic murmur, diastolic murmur, rubs, gallop GI/Abdominal exam: Present: soft. Absent: distended, tenderness, guarding, rebound, mass Extremities exam: Present: normal inspection, normal capillary refill. Absent: pedal edema, calf tenderness Back exam: Absent: CVA tenderness (R), CVA tenderness (L) Neurological exam: Present: alert Skin exam: Present: warm, dry, normal color, other (Patient has an approximately 1-2 cm x 1 cm ulceration to the dorsum of the left midfoot. There is also approximately one to 2 x 1 cm ulceration near the right medial malleolus. Both of these are dressed with ointment. There is no erythema, warmth, or drainage.) Course Vital Signs 03/12/17 03/12/17 20:28 22:23 Temperature 97.3 F L 98.7 F Pulse Rate 99 86 Respiratory 20 21 Rate Blood Pressure 148/76 159/87 O2 Sat by Pulse 95 98 Oximetry EKG Findings - EKG Results: EKG: interpreted by JOSIE, sinus rhythm (Rate 95 bpm), normal ST/T, no acute changes - Blocks, [place], Hypertrophy, ST Abn: QRS axis and voltage: right axis deviation (+90 to +180), pulmonary disease Medical Decision Making - Medical Decision Making I have reviewed the results with the patient who states that she would like to try going home rather than being admitted to the hospital. Patient to follow- up to have the sodium rechecked. She does run chronically low and she'll be given small amount of saline today. We discussed return parameters and the patient again declined admission here for this condition. - Lab Data Result diagrams: 03/12/17 21:35 03/12/17 21:35 Lab Results 03/12/17 03/12/17 03/12/17 Range/Units 21:35 21:35 21:35 WBC 13.5 H (3.8-10.6) k/uL RBC 3.97 (3.80-5.40) m/uL Hgb 12.3 (11.4-16.0) gm/dL Hct 38.0 (34.0-46.0) % MCV 95.8 (80.0-100.0) fL MCH 31.1 (25.0-35.0) pg MCHC 32.5 (31.0-37.0) g/dL RDW 13.5 (11.5-15.5) % Plt Count 321 (150-450) k/uL Neutrophils % 80 % Lymphocytes % 12 % Monocytes % 5 % Eosinophils % 1 % Basophils % 0 % Neutrophils # 10.8 H (1.3-7.7) k/uL Lymphocytes # 1.6 (1.0-4.8) k/uL Monocytes # 0.7 (0-1.0) k/uL Eosinophils # 0.1 (0-0.7) k/uL Basophils # 0.0 (0-0.2) k/uL PT (9.0-12.0) sec INR (<1.2) APTT (22.0-30.0) sec Sodium 126 L (137-145) mmol/L Potassium 4.7 (3.5-5.1) mmol/L Chloride 93 L (98-107) mmol/L Carbon Dioxide 31 H (22-30) mmol/L Anion Gap 2 mmol/L BUN 23 H (7-17) mg/dL Creatinine 0.70 (0.52-1.04) mg/dL Est GFR (MDRD) Af Amer >60 (>60 ml/min/1.73 sqM) Est GFR (MDRD) Non-Af >60 (>60 ml/min/1.73 sqM) Glucose 148 H (74-99) mg/dL Plasma Lactic Acid Lance (0.7-2.0) mmol/L Calcium 9.5 (8.4-10.2) mg/dL Magnesium 1.9 (1.6-2.3) mg/dL Total Bilirubin 0.1 L (0.2-1.3) mg/dL AST 18 (14-36) U/L ALT 31 (9-52) U/L Alkaline Phosphatase 59 (38-126) U/L Total Creatine Kinase 62 (30-135) U/L CK-MB (CK-2) 3.6 H* (0.0-2.4) ng/mL CK-MB (CK-2) Rel Index 5.8 Troponin I <0.012 (0.000-0.034) ng/mL Total Protein 5.6 L (6.3-8.2) g/dL Albumin 3.3 L (3.5-5.0) g/dL TSH 0.596 (0.465-4.680) mIU/L Urine Color Urine Appearance (Clear) Urine pH (5.0-8.0) Ur Specific [place] (1.001-1.035) Urine Protein (Negative) Urine Glucose (UA) (Negative) Urine Ketones (Negative) Urine Blood (Negative) Urine Nitrite (Negative) Urine Bilirubin (Negative) Urine Urobilinogen (<2.0) mg/dL Ur Leukocyte Esterase (Negative) 03/12/17 03/12/17 03/12/17 Range/Units 21:35 21:35 21:35 WBC (3.8-10.6) k/uL RBC (3.80-5.40) m/uL Hgb (11.4-16.0) gm/dL Hct (34.0-46.0) % MCV (80.0-100.0) fL MCH (25.0-35.0) pg MCHC (31.0-37.0) g/dL RDW (11.5-15.5) % Plt Count (150-450) k/uL Neutrophils % % Lymphocytes % % Monocytes % % Eosinophils % % Basophils % % Neutrophils # (1.3-7.7) k/uL Lymphocytes # (1.0-4.8) k/uL Monocytes # (0-1.0) k/uL Eosinophils # (0-0.7) k/uL Basophils # (0-0.2) k/uL PT 9.7 (9.0-12.0) sec INR 0.9 (<1.2) APTT 20.1 L (22.0-30.0) sec Sodium (137-145) mmol/L Potassium (3.5-5.1) mmol/L Chloride (98-107) mmol/L Carbon Dioxide (22-30) mmol/L Anion Gap mmol/L BUN (7-17) mg/dL Creatinine (0.52-1.04) mg/dL Est GFR (MDRD) Af Amer (>60 ml/min/1.73 sqM) Est GFR (MDRD) Non-Af (>60 ml/min/1.73 sqM) Glucose (74-99) mg/dL Plasma Lactic Acid Lance 1.2 (0.7-2.0) mmol/L Calcium (8.4-10.2) mg/dL Magnesium (1.6-2.3) mg/dL Total Bilirubin (0.2-1.3) mg/dL AST (14-36) U/L ALT (9-52) U/L Alkaline Phosphatase (38-126) U/L Total Creatine Kinase (30-135) U/L CK-MB (CK-2) (0.0-2.4) ng/mL CK-MB (CK-2) Rel Index Troponin I (0.000-0.034) ng/mL Total Protein (6.3-8.2) g/dL Albumin (3.5-5.0) g/dL TSH (0.465-4.680) mIU/L Urine Color Yellow Urine Appearance Clear (Clear) Urine pH 6.0 (5.0-8.0) Ur Specific [place] 1.016 (1.001-1.035) Urine Protein Negative (Negative) Urine Glucose (UA) Negative (Negative) Urine Ketones Negative (Negative) Urine Blood Negative (Negative) Urine Nitrite Negative (Negative) Urine Bilirubin Negative (Negative) Urine Urobilinogen <2.0 (<2.0) mg/dL Ur Leukocyte Esterase Negative (Negative) Disposition Clinical Impression: Hyponatremia Disposition: HOME SELF-CARE Condition: Fair Instructions: Hyponatremia (ED) Referrals: Chris Sears MD [Primary Care Provider] - 1-2 days
[2017-03-12 21:57] LABS: Basophils % (A) 0 %; CH 30.4; CHCM 31.8; Eosinophils # (A) 0.1 k/uL (0-0.7); Eosinophils % (A) 1 %; HGB 12.3 gm/dL (11.4-16.0); Luc # (Auto) 0.41; Luc % (Auto) 3; Lymphocytes # (A) 1.6 k/uL (1.0-4.8); Lymphocytes % (A) 12 %; MCH 31.1 pg (25.0-35.0); MCHC 32.5 g/dL (31.0-37.0); MCV 95.8 fL (80.0-100.0); Mean Platelet Volume 6.6; Monocytes # (A) 0.7 k/uL (0-1.0); Monocytes % (A) 5 %; Neutrophils # (A) 10.8 k/uL (1.3-7.7); Neutrophils % (A) 80 %; RBC 3.97 m/uL (3.80-5.40); RDW 13.5 % (11.5-15.5); WBC 13.5 k/uL (3.8-10.6)
[2017-03-12 21:59] LABS: Appearance,Urine Clear (Clear); Bilirubin,Urine Negative (Negative); Glucose,Urine (UA) Negative (Negative); Ketones,Urine Negative (Negative); Leukocyte Esterase,Urine Negative (Negative); Nitrite,Urine Negative (Negative); Protein,Urine Negative (Negative); Specific Gravity,Urine 1.016 (1.001-1.035); UA Billing (MACRO vs. MICRO) CHEM; Urobilinogen,Urine <2.0 mg/dL (<2.0)
--- NOTE | 2017-03-12 22:04 | XR ---
EXAMINATION TYPE: XR chest 2V DATE OF EXAM: 03/12/2017 COMPARISON: 01/17/2017 HISTORY: Weakness TECHNIQUE: Frontal and lateral views of the chest are obtained. FINDINGS: There is no heart failure nor confluent pneumonic infiltrate. Heart size is normal. Thorac ic aorta is atheromatous. Bony thorax is intact. IMPRESSION: No active cardiopulmonary disease. No change. Calcific tendinitis noted at the right tess ulder joint.
[2017-03-12 22:08] LABS: ALT 31 U/L (9-52); AST 18 U/L (14-36); Alkaline Phosphatase 59 U/L (38-126); Anion Gap 2 mmol/L; Blood Urea Nitrogen 23 mg/dL (7-17); Calcium 9.5 mg/dL (8.4-10.2); Carbon Dioxide 31 mmol/L (22-30); Chloride 93 mmol/L (98-107); Glucose 148 mg/dL (74-99); Magnesium 1.9 mg/dL (1.6-2.3); Non-African American GFR(MDRD) >60 (>60 ml/min/1.73 sqM); Potassium 4.7 mmol/L (3.5-5.1); Sodium 126 mmol/L (137-145); Total Bilirubin 0.1 mg/dL (0.2-1.3); Total Protein 5.6 g/dL (6.3-8.2)
[2017-03-12 22:12] LABS: INR 0.9 (<1.2); Prothrombin Time 9.7 sec (9.0-12.0)
[2017-03-12 22:15] LABS: Creatine Kinase 62 U/L (30-135)
[2017-03-12 22:19] LABS: Partial Thromboplastin Time 20.1 sec (22.0-30.0)
[2017-03-12 22:28] LABS: Troponin I <0.012 ng/mL (0.000-0.034)
[2017-03-12 22:33] LABS: Creatine Kinase MB 3.6 ng/mL (0.0-2.4)
[2017-03-12] MEDS ORDERED: SODIUM CHLORIDE 0.9% 1,000 ML IV ONE (23:22)
[2017-03-12] MEDS ORDERED: IPRATROPIUM-ALBUTEROL 3 ML NEB INHALATION STA (23:53)
[2017-03-13 01:04] VITALS: BP 164/84; PULSE 84; RESP 20; TEMP 98.1
== END 2017-03-13 01:02 | disposition home or self-care (01) ==
LOC: EC 20:25
DX: E87.1 Hypo-osmolality and hyponatremia (principal); R06.2 Wheezing; L97.529 Non-pressure chronic ulcer of other part of left foot with unspecified severity; L97.319 Non-pressure chronic ulcer of right ankle with unspecified severity; I10 Essential (primary) hypertension; J44.9 Chronic obstructive pulmonary disease, unspecified; J96.11 Chronic respiratory failure with hypoxia; E03.9 Hypothyroidism, unspecified; M19.90 Unspecified osteoarthritis, unspecified site; Z87.891 Personal history of nicotine dependence; Z79.51 Long term (current) use of inhaled steroids; Z79.82 Long term (current) use of aspirin; Z79.899 Other long term (current) drug therapy; Z88.0 Allergy status to penicillin; Z88.1 Allergy status to other antibiotic agents; Z88.8 Allergy status to other drugs, medicaments and biological substances; Z86.79 Personal history of other diseases of the circulatory system
CPT/HCPCS: 36415; 71020; 80053; 81003; 82550; 82553; 83605; 83735; 84443; 84484; 85025; 85610; 85730; 87040; 87086; 93005; 94640; 96365; 99285

== ENCOUNTER → 2017-04-06 | Outpatient (CLI) | payer MEDICARE, BC ==
[2017-04-06 12:58] LABS: Basophils % (A) 0 %; CH 30.8; CHCM 31.5; Eosinophils # (A) 0.1 k/uL (0-0.7); Eosinophils % (A) 1 %; HDW 2.49; HGB 11.9 gm/dL (11.4-16.0); Luc # (Auto) 0.31; Luc % (Auto) 4; Lymphocytes # (A) 1.7 k/uL (1.0-4.8); Lymphocytes % (A) 20 %; MCH 29.8 pg (25.0-35.0); MCHC 30.4 g/dL (31.0-37.0); MCV 98.1 fL (80.0-100.0); Mean Platelet Volume 7.6; Monocytes # (A) 0.5 k/uL (0-1.0); Monocytes % (A) 6 %; Neutrophils # (A) 5.8 k/uL (1.3-7.7); Neutrophils % (A) 70 %; RBC 3.98 m/uL (3.80-5.40); RDW 13.9 % (11.5-15.5); WBC 8.3 k/uL (3.8-10.6); WBC (Perox) 8.53
[2017-04-06 13:09] LABS: ALT 39 U/L (9-52); AST 24 U/L (14-36); Alkaline Phosphatase 79 U/L (38-126); Anion Gap 5 mmol/L; Blood Urea Nitrogen 15 mg/dL (7-17); Calcium 9.6 mg/dL (8.4-10.2); Carbon Dioxide 32 mmol/L (22-30); Chloride 97 mmol/L (98-107); Cholesterol 242 mg/dL (<200); Glucose 105 mg/dL (74-99); HDL Cholesterol 82 mg/dL (40-60); Non-African American GFR(MDRD) >60 (>60 ml/min/1.73 sqM); Potassium 4.1 mmol/L (3.5-5.1); Sodium 134 mmol/L (137-145); Total Bilirubin 0.3 mg/dL (0.2-1.3); Total Protein 6.1 g/dL (6.3-8.2)
[2017-04-06 20:46] LABS: Hemoglobin A1C 6.6 % (4.2-6.1)
== END | disposition home or self-care (01) ==
LOC: LABWHC1 11:55
PROVIDERS: ATTEND Internal Medicine
DX: E03.9 Hypothyroidism, unspecified (principal); I10 Essential (primary) hypertension; R53.83 Other fatigue; R53.1 Weakness; Z79.899 Other long term (current) drug therapy
CPT/HCPCS: 36415; 80053; 80061; 83036; 84439; 84443; 84481; 85025

== ENCOUNTER 2017-09-08 15:26 | Emergency (ER) | payer MEDICARE, BC ==
[2017-09-08] MEDS ORDERED: IPRATROPIUM-ALBUTEROL 3 ML NEB INHALATION STA (17:18)
--- NOTE | 2017-09-08 17:21 | ED ---
General Adult HPI - General Chief complaint: Upper Respiratory Infection Stated complaint: COPD/Sinus infection-sent by [facility] Time Seen by Provider: 09/08/17 16:19 Source: patient, family, RN notes reviewed Mode of arrival: ambulatory Limitations: no limitations - History of Present Illness Initial comments: Patient is a pleasant 72-year-old female presenting to the emergency department with congestion. Symptoms have been present for close to 2 weeks. Patient states it started as sinus congestion however is moving to her chest. Patient does have occasional cough with white sputum. No fevers. Patient states she may feel slightly short of breath which is consistent with her COPD history. Patient was seen at [facility] prior to arrival and was recommended to have chest x-ray. Patient states her normal pulse ox is between 92-94%. - Related Data Home Medications Medication Instructions Recorded Confirmed Budesonide-Formot 160-4.5 Mcg 2 puff INHALATION RT-BID 12/11/13 09/08/17 [Symbicort 160-4.5 Mcg Inhaler] Lisinopril [Zestril] 20 mg PO BID 12/11/13 09/08/17 Albuterol Sulfate [Proair Hfa] 2 puff INHALATION RT-Q6H PRN 01/08/16 09/08/17 Ipratropium-Albuterol Nebulize 3 ml INHALATION RT-Q4H PRN 01/08/16 09/08/17 [Duoneb 0.5 mg-3 mg/3 ml Soln] Aspirin EC [Ecotrin Low Dose] 81 mg PO DAILY 12/10/16 09/08/17 Furosemide [Lasix] 20 mg PO DAILY 01/17/17 09/08/17 Aspirin EC [Ecotrin] 325 mg PO DAILY PRN 09/08/17 09/08/17 Levothyroxine Sodium [Synthroid] 150 mcg PO DAILY 09/08/17 09/08/17 Vitamin B Complex 1 tab PO DAILY 09/08/17 09/08/17 Whey Protien Powder 1 scoop PO DAILY 09/08/17 09/08/17 Previous Rx's Medication Instructions Recorded Azithromycin [Zithromax Z-pack] 250 mg PO DIRECTED #6 tab 09/08/17 predniSONE 10 mg PO DAILY #5 tab 09/08/17 Allergies Allergy/AdvReac Type Severity Reaction Status Date / Time bacitracin Allergy Rash/Hives Verified 05/04/17 11:50 [From Neosporin ([id number])] neomycin Allergy Rash/Hives Verified 05/04/17 11:50 [From Neosporin ([id number])] Penicillins Allergy Rash/Hives Verified 05/04/17 11:50 polymyxin B Allergy Rash/Hives Verified 05/04/17 11:50 [From Neosporin ([id number])] levofloxacin [From Levaquin] AdvReac WEAKNESS Verified 05/04/17 11:50 ELDA/POLY/DEX Allergy Rash/Hives Uncoded 05/04/17 11:50 Review of Systems ROS Statement: Those systems with pertinent positive or pertinent negative responses have been documented in the HPI. ROS Other: All systems not noted in ROS Statement are negative. Constitutional: Denies: fever Eyes: Denies: eye pain ENT: Denies: ear pain Respiratory: Reports: cough, dyspnea Cardiovascular: Denies: chest pain Endocrine: Denies: fatigue Gastrointestinal: Denies: abdominal pain Genitourinary: Denies: dysuria Musculoskeletal: Denies: back pain Skin: Denies: rash Neurological: Denies: weakness Past Medical History Past Medical History: Chest Pain / Angina, COPD, Hypertension, Osteoarthritis ( OA), Thyroid Disorder Additional Past Medical History / Comment(s): Advanced COPD, chronic hypoxic respiratory failure, former smoker, hypertension, hypothyroidism, skeletal chest wall pain, chronic anxiety ,leg and foot wounds History of Any Multi-Drug Resistant Organisms: None Reported Past Surgical History: Heart Catheterization, Hysterectomy, Tubal Ligation Additional Past Surgical History / Comment(s): cataracts removed Past Anesthesia/Blood Transfusion Reactions: Previous Problems w/ Anesthesia, Postoperative Nausea & Vomiting (PONV) Additional Past Anesthesia/Blood Transfusion Reaction / Comment(s): oxygen was "low" post op, nausea one time Past Psychological History: Anxiety Smoking Status: Current some day smoker Past Alcohol Use History: None Reported, Rare Past Drug Use History: None Reported - Past Family History Mother History Unknown: Yes Family Medical History: Cancer, Thyroid Disorder Additional Family Medical History / Comment(s): Liver Cancer Father History Unknown: Yes Family Medical History: Cancer General Exam Limitations: no limitations General appearance: alert, in no apparent distress Head exam: Present: atraumatic Eye exam: Present: normal appearance, PERRL ENT exam: Present: normal oropharynx, TM's normal bilaterally, other ( Tenderness to the frontal, ethmoid, and maxillary sinuses) Neck exam: Present: normal inspection Respiratory exam: Present: wheezes, decreased breath sounds Cardiovascular Exam: Present: regular rate, normal rhythm GI/Abdominal exam: Present: soft. Absent: tenderness Extremities exam: Present: normal inspection. Absent: pedal edema, calf tenderness Neurological exam: Present: alert Psychiatric exam: Present: normal affect, normal mood Skin exam: Present: normal color Course Vital Signs 09/08/17 09/08/17 09/08/17 15:44 16:46 17:35 Temperature 99.4 F 98.4 F Pulse Rate 91 90 90 Respiratory 18 22 Rate Blood Pressure 182/82 O2 Sat by Pulse 96 95 Oximetry 09/08/17 17:45 Temperature Pulse Rate 92 Respiratory Rate Blood Pressure O2 Sat by Pulse Oximetry Medical Decision Making - Medical Decision Making Patient reevaluated and resting comfortably in bed. Patient does have some increased air exchange and still has some mild wheezing. Patient states she always is on 2 L of oxygen. Patient states her breathing is fine and does request discharge home. Patient requests low-dose steroid of 10 mg as well as antibiotics. - Lab Data Lab Results 09/08/17 Range/Units 17:35 Influenza Type A RNA Not Detected (Not Detectd) Influenza Type B (PCR) Not Detected (Not Detectd) Disposition Clinical Impression: Sinusitis, Bronchitis Disposition: ADMITTED IP TO THIS [facility] Instructions: Acute Bronchitis (ED) Additional Instructions: Please follow-up to primary care physician in the next day or 2 for recheck. Return for difficulty in breathing, increased cough, increased fevers, pain, worsening symptoms or other concerns. Prescriptions: Azithromycin [Zithromax Z-pack] 250 mg PO DIRECTED #6 tab predniSONE 10 mg PO DAILY #5 tab Referrals: Chris Sears MD [Primary Care Provider] - 1-2 days Time of Disposition: 18:01
--- NOTE | 2017-09-08 17:31 | XR ---
EXAMINATION TYPE: XR chest 2V DATE OF EXAM: 09/08/2017 COMPARISON: 03/12/2017 HISTORY: Shortness of breath TECHNIQUE: Frontal and lateral views of the chest are obtained. FINDINGS: Scattered senescent parenchymal changes noted. Hyperinflation compatible with COPD. No evidence for infiltrate. No evidence for atelectasis. Heart size is stable. Mediastinal structures are stable and grossly unremarkable. No evidence for hilar prominence. Degenerative changes dorsal spine. IMPRESSION: 1. No evidence for acute pulmonary disease.
[2017-09-08 18:13] VITALS: BP 149/89; PULSE 76; RESP 20; TEMP 98.3
== END 2017-09-08 18:13 | disposition other institution (70) ==
LOC: EC 15:26
DX: J32.9 Chronic sinusitis, unspecified (principal); J44.9 Chronic obstructive pulmonary disease, unspecified; I10 Essential (primary) hypertension; E03.9 Hypothyroidism, unspecified; F41.9 Anxiety disorder, unspecified; F17.200 Nicotine dependence, unspecified, uncomplicated; Z79.82 Long term (current) use of aspirin; Z79.51 Long term (current) use of inhaled steroids; Z79.899 Other long term (current) drug therapy; Z88.0 Allergy status to penicillin; Z88.1 Allergy status to other antibiotic agents
CPT/HCPCS: 71046; 87502; 94640; 99284

== ENCOUNTER → 2018-02-07 | Outpatient (CLI) | payer MEDICARE, BC ==
[2018-02-07 10:55] LABS: Basophils % (A) 0 %; Eosinophils # (A) 0.1 k/uL (0-0.7); Eosinophils % (A) 1 %; HCT 43.5 % (34.0-46.0); Hypochromasia Moderate; Lymphocytes # (A) 1.8 k/uL (1.0-4.8); Lymphocytes % (A) 16 %; MCH 28.2 pg (25.0-35.0); MCHC 29.8 g/dL (31.0-37.0); MCV 94.5 fL (80.0-100.0); Mean Platelet Volume 6.7; Monocytes # (A) 0.6 k/uL (0-1.0); Monocytes % (A) 5 %; Neutrophils # (A) 8.4 k/uL (1.3-7.7); Neutrophils % (A) 75 %; Platelet Count 292 k/uL (150-450); RBC 4.61 m/uL (3.80-5.40); RDW 13.2 % (11.5-15.5); WBC 11.1 k/uL (3.8-10.6)
[2018-02-07 11:06] LABS: ALT 37 U/L (9-52); AST 20 U/L (14-36); Albumin 3.8 g/dL (3.5-5.0); Alkaline Phosphatase 66 U/L (38-126); Anion Gap 4 mmol/L; Blood Urea Nitrogen 21 mg/dL (7-17); Calcium 9.5 mg/dL (8.4-10.2); Carbon Dioxide 33 mmol/L (22-30); Chloride 97 mmol/L (98-107); Cholesterol 208 mg/dL (<200); Glucose 132 mg/dL (74-99); HDL Cholesterol 87 mg/dL (40-60); LDL Cholesterol,Calculated 109 mg/dL (0-99); Potassium 4.6 mmol/L (3.5-5.1); Sodium 134 mmol/L (137-145); Total Bilirubin 0.3 mg/dL (0.2-1.3); Total Protein 6.3 g/dL (6.3-8.2); Triglycerides 61 mg/dL (<150)
[2018-02-07 11:20] LABS: T4, Free (Free Thyroxine) 1.56 ng/dL (0.78-2.19)
== END | disposition home or self-care (01) ==
LOC: LABWHC1 10:07
PROVIDERS: ATTEND Internal Medicine
DX: Z00.00 Encounter for general adult medical examination without abnormal findings (principal); E78.5 Hyperlipidemia, unspecified; I10 Essential (primary) hypertension
CPT/HCPCS: 36415; 80053; 80061; 84439; 84443; 85025

== ENCOUNTER → 2018-05-04 | Outpatient (CLI) | payer MEDICARE, BC ==
--- NOTE | 2018-05-05 11:35 | MM ---
Reason for exam: screening (asymptomatic). Last mammogram was performed 2 years and 4 months ago. History: Patient is postmenopausal. Took estrogen for 2 years beginning at age 37. Physical Findings: A clinical breast exam by your physician is recommended on an annual basis and results should be correlated with mammographic findings. MG 3D Screening Mammo W/Cad Bilateral CC and MLO view(s) were taken. Prior study comparison: January 13, 2016, right breast MG 3d diag mammo w/cad RT. July 08, 2015, right breast MG 3d work up w/cad RT. The breast tissue is heterogeneously dense. This may lower the sensitivity of mammography. There are benign appearing round vascular calcifications bilaterally. There is no discrete abnormality. ASSESSMENT: Benign, BI-RAD 2 RECOMMENDATION: Routine screening mammogram of both breasts in 1 year.
== END | disposition home or self-care (01) ==
LOC: RADMAMWWP 10:01
PROVIDERS: ATTEND Internal Medicine
DX: Z12.31 Encounter for screening mammogram for malignant neoplasm of breast (principal)
CPT/HCPCS: 77063; 77067

== ENCOUNTER 2018-11-29 14:14 | Inpatient (IN) | payer MEDICARE, BC ==
[2018-11-29] MEDS ORDERED: ALBUTEROL NEBULIZED 2.5 MG/3 ML INHALATION STA (15:22)
[2018-11-29] MEDS ORDERED: methylPREDNISolone SOD SUCCI 125 MG/2 ML VIAL IV STA (15:22)
--- NOTE | 2018-11-29 15:26 | ED ---
General Adult HPI - General Chief complaint: Shortness of Breath Stated complaint: SOB Time Seen by Provider: 11/29/18 14:25 Source: patient, RN notes reviewed Mode of arrival: wheelchair Limitations: no limitations - History of Present Illness Initial comments: This a 73-year-old female who presents emergency Department with a history of COPD. Patient states she continues to smoke. Patient states over the last 3 weeks that difficulty breathing is gotten a Z-Marc which seemed to help for short-term but his been off of it at least a week and has gotten much more short of breath over the last week. Patient states she also is coughing up a lot of y ellow sputum. Patient denies any fever chills. Patient denies chest pain patient denies palpitations. Patient denies any abdominal pain patient denies nausea vomiting diarrhea. Patient denies headache patient denies numbness weakness. Patient denies lightheadedness dizziness or near syncopal episode per patient denies any swelling to the legs or calf tenderness. - Related Data Home Medications Medication Instructions Recorded Confirmed Budesonide-Formot 160-4.5 Mcg 2 puff INHALATION RT-BID 12/11/13 11/29/18 [Symbicort 160-4.5 Mcg Inhaler] Lisinopril [Zestril] 20 mg PO BID 12/11/13 11/29/18 Albuterol Sulfate [Proair Hfa] 2 puff INHALATION RT-Q6H PRN 01/08/16 11/29/18 Ipratropium-Albuterol Nebulize 3 ml INHALATION RT-Q4H PRN 01/08/16 11/29/18 [Duoneb 0.5 mg-3 mg/3 ml Soln] Levothyroxine Sodium [Synthroid] 150 mcg PO DAILY 09/08/17 11/29/18 ALPRAZolam [Xanax] 0.25 mg PO TID PRN 11/29/18 11/29/18 Aspirin 650 mg PO Q48H 11/29/18 11/29/18 predniSONE 5 mg PO DAILY 11/29/18 11/29/18 Allergies Allergy/AdvReac Type Severity Reaction Status Date / Time bacitracin Allergy Rash/Hives Verified 11/29/18 15:12 [From Neosporin ([id number])] neomycin Allergy Rash/Hives Verified 11/29/18 15:12 [From Neosporin ([id number])] Penicillins Allergy Rash/Hives Verified 11/29/18 15:12 polymyxin B Allergy Rash/Hives Verified 11/29/18 15:12 [From Neosporin ([id number])] levofloxacin [From Levaquin] AdvReac WEAKNESS Verified 11/29/18 15:12 ELDA/POLY/DEX Allergy Rash/Hives Uncoded 11/29/18 14:30 Review of Systems ROS Statement: Those systems with pertinent positive or pertinent negative responses have been documented in the HPI. ROS Other: All systems not noted in ROS Statement are negative. Past Medical History Past Medical History: Chest Pain / Angina, COPD, Hypertension, Osteoarthritis (OA), Thyroid Disorder Additional Past Medical History / Comment(s): Advanced COPD, chronic hypoxic respiratory failure, former smoker, hypertension, hypothyroidism, skeletal chest wall pain, chronic anxiety ,leg and foot wounds History of Any Multi-Drug Resistant Organisms: None Reported Past Surgical History: Heart Catheterization, Hysterectomy, Tubal Ligation Additional Past Surgical History / Comment(s): cataracts removed Past Anesthesia/Blood Transfusion Reactions: Previous Problems w/ Anesthesia, Postoperative Nausea & Vomiting (PONV) Additional Past Anesthesia/Blood Transfusion Reaction / Comment(s): oxygen was "low" post op, nausea one time Past Psychological History: Anxiety Smoking Status: Current every day smoker Past Alcohol Use History: None Reported, Rare Past Drug Use History: None Reported - Past Family History Mother History Unknown: Yes Family Medical History: Cancer, Thyroid Disorder Additional Family Medical History / Comment(s): Liver Cancer Father History Unknown: Yes Family Medical History: Cancer General Exam - General Exam Comments Initial Comments: GENERAL: Patient is well-developed and well-nourished. Patient is nontoxic and well- hydrated and is in mild distress. ENT: Neck is soft and supple. No significant lymphadenopathy is noted. Oropharynx is clear. Moist mucous membranes. Neck has full range of motion without eliciting any pain. EYES: The sclera were anicteric and conjunctiva were pink and moist. Extraocular movements were intact and pupils were equal round and reactive to light. Eyelids were unremarkable. PULMONARY: Patient is diffusely wheezing bilaterally. Patient is moving very little air CARDIOVASCULAR: There is a regular rate and rhythm without any murmurs gallops or rubs. ABDOMEN: Soft and nontender with normal bowel sounds. No palpable organomegaly was noted. There is no palpable pulsatile mass. SKIN: Skin is clear with no lesions or rashes and otherwise unremarkable. NEUROLOGIC: Patient is alert and oriented x3. Cranial nerves II through XII are grossly intact. Motor and sensory are also intact. Normal speech, volume and content. Symmetrical smile. MUSCULOSKELETAL: Normal extremities with adequate strength and full range of motion. LYMPHATICS: No significant lymphadenopathy is noted PSYCHIATRIC: Normal psychiatric evaluation. Limitations: no limitations Course Vital Signs 11/29/18 11/29/18 11/29/18 14:27 14:45 15:10 Temperature 99.0 F Pulse Rate 109 H 106 H Respiratory 20 24 Rate Blood Pressure 123/66 132/77 O2 Sat by Pulse 96 95 Oximetry 11/29/18 11/29/18 11/29/18 15:33 15:50 16:02 Temperature Pulse Rate 106 H 98 102 H Respiratory Rate Blood Pressure 148/88 O2 Sat by Pulse 99 Oximetry 11/29/18 11/29/18 11/29/18 16:40 17:00 17:30 Temperature Pulse Rate 99 99 96 Respiratory Rate Blood Pressure 151/79 151/79 149/99 O2 Sat by Pulse 96 97 95 Oximetry 11/29/18 11/29/18 18:00 18:10 Temperature Pulse Rate 92 98 Respiratory Rate Blood Pressure 149/83 144/92 O2 Sat by Pulse 95 94 L Oximetry Medical Decision Making - Medical Decision Making EKG shows sinus tachycardia at 109 bpm HI interval 134 QRS is 92 QT interval 328 QTC is 441. Patient's EKG shows no ST segment elevation. Patient received 3 breathing treatments in the emergency department back to back she did feel better but she was still not moving much air. Patient also received steroids in the emergency department. Spoke with the [facility] states that the patient admitted the patient I wrote admit orders. I consult the pulmonary - Lab Data Result diagrams: 11/29/18 15:35 11/29/18 15:35 Lab Results 11/29/18 11/29/18 11/29/18 Range/Units 15:35 15:35 15:35 WBC 11.5 H (3.8-10.6) k/uL RBC 4.44 (3.80-5.40) m/uL Hgb 12.7 (11.4-16.0) gm/dL Hct 41.1 (34.0-46.0) % MCV 92.6 (80.0-100.0) fL MCH 28.6 (25.0-35.0) pg MCHC 30.9 L (31.0-37.0) g/dL RDW 13.1 (11.5-15.5) % Plt Count 316 (150-450) k/uL Neutrophils % 86 % Lymphocytes % 7 % Monocytes % 4 % Eosinophils % 0 % Basophils % 0 % Neutrophils # 9.9 H (1.3-7.7) k/uL Lymphocytes # 0.8 L (1.0-4.8) k/uL Monocytes # 0.5 (0-1.0) k/uL Eosinophils # 0.0 (0-0.7) k/uL Basophils # 0.0 (0-0.2) k/uL PT 9.3 (9.0-12.0) sec INR 0.8 (<1.2) APTT 21.1 L (22.0-30.0) sec Sodium 135 L (137-145) mmol/L Potassium 4.8 (3.5-5.1) mmol/L Chloride 93 L (98-107) mmol/L Carbon Dioxide 37 H (22-30) mmol/L Anion Gap 5 mmol/L BUN 20 H (7-17) mg/dL Creatinine 0.65 (0.52-1.04) mg/dL Est GFR (CKD-EPI)AfAm >90 (>60 ml/min/1.73 sqM) Est GFR (CKD-EPI)NonAf 87 (>60 ml/min/1.73 sqM) Glucose 164 H (74-99) mg/dL Plasma Lactic Acid Lance (0.7-2.0) mmol/L Calcium 9.8 (8.4-10.2) mg/dL Magnesium 2.0 (1.6-2.3) mg/dL Total Bilirubin 0.2 (0.2-1.3) mg/dL AST 23 (14-36) U/L ALT 19 (9-52) U/L Alkaline Phosphatase 80 (38-126) U/L Troponin I (0.000-0.034) ng/mL Total Protein 6.6 (6.3-8.2) g/dL Albumin 3.9 (3.5-5.0) g/dL 11/29/18 11/29/18 Range/Units 15:35 15:35 WBC (3.8-10.6) k/uL RBC (3.80-5.40) m/uL Hgb (11.4-16.0) gm/dL Hct (34.0-46.0) % MCV (80.0-100.0) fL MCH (25.0-35.0) pg MCHC (31.0-37.0) g/dL RDW (11.5-15.5) % Plt Count (150-450) k/uL Neutrophils % % Lymphocytes % % Monocytes % % Eosinophils % % Basophils % % Neutrophils # (1.3-7.7) k/uL Lymphocytes # (1.0-4.8) k/uL Monocytes # (0-1.0) k/uL Eosinophils # (0-0.7) k/uL Basophils # (0-0.2) k/uL PT (9.0-12.0) sec INR (<1.2) APTT (22.0-30.0) sec Sodium (137-145) mmol/L Potassium (3.5-5.1) mmol/L Chloride (98-107) mmol/L Carbon Dioxide (22-30) mmol/L Anion Gap mmol/L BUN (7-17) mg/dL Creatinine (0.52-1.04) mg/dL Est GFR (CKD-EPI)AfAm (>60 ml/min/1.73 sqM) Est GFR (CKD-EPI)NonAf (>60 ml/min/1.73 sqM) Glucose (74-99) mg/dL Plasma Lactic Acid Lance 1.3 (0.7-2.0) mmol/L Calcium (8.4-10.2) mg/dL Magnesium (1.6-2.3) mg/dL Total Bilirubin (0.2-1.3) mg/dL AST (14-36) U/L ALT (9-52) U/L Alkaline Phosphatase (38-126) U/L Troponin I <0.012 (0.000-0.034) ng/mL Total Protein (6.3-8.2) g/dL Albumin (3.5-5.0) g/dL Critical Care Time Critical Care Time: Yes Total Critical Care Time: 35 Disposition Clinical Impression: Acute exacerbation of chronic obstructive pulmonary disease Disposition: ADMITTED IP TO THIS HOSP Referrals: Chris Sears MD [Primary Care Provider] - 1-2 days Time of Disposition: 18:37
[2018-11-29 15:50] LABS: Basophils % (A) 0 %; Eosinophils % (A) 0 %; HCT 41.1 % (34.0-46.0); HGB 12.7 gm/dL (11.4-16.0); Lymphocytes # (A) 0.8 k/uL (1.0-4.8); Lymphocytes % (A) 7 %; MCH 28.6 pg (25.0-35.0); MCHC 30.9 g/dL (31.0-37.0); MCV 92.6 fL (80.0-100.0); Mean Platelet Volume 6.6; Monocytes # (A) 0.5 k/uL (0-1.0); Monocytes % (A) 4 %; Neutrophils # (A) 9.9 k/uL (1.3-7.7); Neutrophils % (A) 86 %; Platelet Count 316 k/uL (150-450); RBC 4.44 m/uL (3.80-5.40); RDW 13.1 % (11.5-15.5); WBC 11.5 k/uL (3.8-10.6)
[2018-11-29 16:01] LABS: ALT 19 U/L (9-52); AST 23 U/L (14-36); African American GFR (CKD) >90 (>60 ml/min/1.73 sqM); Albumin 3.9 g/dL (3.5-5.0); Alkaline Phosphatase 80 U/L (38-126); Anion Gap 5 mmol/L; Blood Urea Nitrogen 20 mg/dL (7-17); Calcium 9.8 mg/dL (8.4-10.2); Carbon Dioxide 37 mmol/L (22-30); Chloride 93 mmol/L (98-107); Glucose 164 mg/dL (74-99); Potassium 4.8 mmol/L (3.5-5.1); Sodium 135 mmol/L (137-145); Total Bilirubin 0.2 mg/dL (0.2-1.3); Total Protein 6.6 g/dL (6.3-8.2)
[2018-11-29 16:08] LABS: INR 0.8 (<1.2); Prothrombin Time 9.3 sec (9.0-12.0)
[2018-11-29 16:27] LABS: Partial Thromboplastin Time 21.1 sec (22.0-30.0)
--- NOTE | 2018-11-29 16:31 | XR ---
EXAMINATION TYPE: XR chest 2V DATE OF EXAM: 11/29/2018 COMPARISON: Prior chest x-ray 09/08/2017 HISTORY: Difficulty breathing, shortness of breath TECHNIQUE: Frontal and lateral views of the chest are obtained. FINDINGS: There is no focal air space opacity, pleural effusion, or pneumothorax seen. The cardiac silhouette size is stable. The osseous structures are intact. There are prominent lung volumes with flattening the hemidiaphragms compatible with underlying COPD. The aorta is dense. Patient is rotate d. IMPRESSION: No acute cardiopulmonary process.
[2018-11-29] MEDS: ALBUTEROL NEBULIZED 2.5 MG/3 ML INHALATION SCH (19:39)
[2018-11-29] MEDS: INSULIN ASPART (NovoLOG) 100 UNIT/ML VIAL SQ SCH (21:01)
[2018-11-29] MEDS: ALPRAZolam 0.25 MG TAB PO PRN (21:20)
[2018-11-29] MEDS: LISINOPRIL 20 MG TAB PO SCH (21:20)
[2018-11-29] MEDS: SYMBICORT 160-4.5 MCG INHALER INHALATION SCH (22:40)
[2018-11-29] MEDS: methylPREDNISolone SOD SUCCI 125 MG/2 ML VIAL IV SCH (23:58)
[2018-11-30] MEDS: LEVOTHYROXINE 75 MCG TAB PO SCH (05:52)
[2018-11-30] MEDS: methylPREDNISolone SOD SUCCI 125 MG/2 ML VIAL IV SCH ×4 (05:52→23:50)
[2018-11-30 07:11] LABS: Glucose,Whole Blood 212 mg/dL (75-99)
[2018-11-30] MEDS: ALBUTEROL NEBULIZED 2.5 MG/3 ML INHALATION SCH ×2 (07:30→11:07)
[2018-11-30] MEDS: SYMBICORT 160-4.5 MCG INHALER INHALATION SCH (07:30)
[2018-11-30] MEDS: ASPIRIN 325 MG TAB PO SCH (07:33)
[2018-11-30] MEDS: LISINOPRIL 20 MG TAB PO SCH ×2 (07:33→21:48)
[2018-11-30] MEDS: INSULIN ASPART (NovoLOG) 100 UNIT/ML VIAL SQ SCH ×4 (07:34→21:48)
[2018-11-30] MEDS: ALPRAZolam 0.25 MG TAB PO PRN (09:28)
[2018-11-30] MEDS ORDERED: IPRATROPIUM-ALBUTEROL 3 ML NEB INHALATION PRN (11:09)
[2018-11-30 11:34] LABS: Glucose,Whole Blood 218 mg/dL (75-99)
[2018-11-30] MEDS: DOXYCYCLINE 100 MG CAP PO SCH ×2 (11:59→21:48)
--- NOTE | 2018-11-30 13:28 | P.CNPUL ---
History of Present Illness Consult date: 11/30/18 Requesting physician: Carleen Zelaya Reason for consult: dyspnea Chief complaint: Dyspnea History of present illness: This is 73-year-old white female patient with past medical history of advanced oxygen-dependent COPD with a baseline FEV1 of 28% of predicted, chronic and ongoing nicotine dependence, patient is currently down to 2 cigarettes a day, hypertension, osteoarthritis, hypothyroidism, anxiety, who presented to the hospital on 11/29/2018 with complaints of difficulty breathing over the last 3 weeks. Patient has been treated with Z-Marc, patient completed it, and it did seem to help for a brief period of time however her symptoms recurred, and patient feels increasingly more short of breath. She is coughing up a lot of yellow sputum. Denied any fever or chills, denied any chest pain, denied any palpitations. No nausea vomiting or diarrhea. No headache, lightheadedness or dizziness. No lower extremity swelling. Patient is supposed to be taken on Symbicort, but she has been having difficulty affording her medications, and it costs her over $300 out of pocket. He is on Medicare and his [employer] for supplemental coverage, which will cover nebulized Pulmicort and Perforomist. She does take maintenance prednisone dose of 5 mg daily. Chest x- ray completed showing no acute cardiopulmonary process. Low-grade fever on admission, with 99F, 2 sat is 96% on 3 L, hemodynamically patient is stable. Showed white blood cell, 11.5, hemoglobin is 12.7, INR 0.8, sodium is 135, potassium is 4.8, chloride is 93, CO2 is 37, BUN is 20, creatinine 0.65, lactic acid was 1.3, troponin was negative 1. LFTs were within normal limits. Patient was started on nebulized bronchodilators, IV steroids. Review of Systems All systems: negative Constitutional: Denies chills, Denies fever Eyes: denies blurred vision, denies pain Ears, nose, mouth and throat: Denies headache, Denies sore throat Cardiovascular: Denies chest pain, Denies shortness of breath Respiratory: Reports cough with sputum, Reports dyspnea, Reports home oxygen, Reports wheezing, Denies cough Gastrointestinal: Denies abdominal pain, Denies diarrhea, Denies nausea, Denies vomiting Genitourinary: Denies dysuria, Denies hematuria Musculoskeletal: Denies myalgias Integumentary: Denies pruritus, Denies rash Neurological: Denies numbness, Denies weakness Psychiatric: Denies anxiety, Denies depression Endocrine: Denies fatigue, Denies weight change Past Medical History Past Medical History: Chest Pain / Angina, Heart Failure, COPD, Hypertension, Osteoarthritis (OA), Thyroid Disorder Additional Past Medical History / Comment(s): Advanced COPD, chronic hypoxic respiratory failure, former smoker, hypertension, hypothyroidism, skeletal chest wall pain, chronic anxiety ,leg and foot wounds History of Any Multi-Drug Resistant Organisms: None Reported Past Surgical History: Heart Catheterization, Hysterectomy, Tubal Ligation Additional Past Surgical History / Comment(s): cataracts removed Past Anesthesia/Blood Transfusion Reactions: Previous Problems w/ Anesthesia, Postoperative Nausea & Vomiting (PONV) Additional Past Anesthesia/Blood Transfusion Reaction / Comment(s): oxygen was "low" post op, nausea one time Past Psychological History: Anxiety Smoking Status: Current some day smoker Past Alcohol Use History: None Reported, Rare Additional Past Alcohol Use History / Comment(s): special occasions only Past Drug Use History: None Reported - Past Family History Mother History Unknown: Yes Family Medical History: Cancer, Thyroid Disorder Additional Family Medical History / Comment(s): Liver Cancer Father History Unknown: Yes Family Medical History: Cancer Medications and Allergies Home Medications Medication Instructions Recorded Confirmed Type Budesonide-Formot 160-4.5 Mcg 2 puff INHALATION RT-BID 12/11/13 11/29/18 History [Symbicort 160-4.5 Mcg Inhaler] Lisinopril [Zestril] 20 mg PO BID 12/11/13 11/29/18 History Albuterol Sulfate [Proair Hfa] 2 puff INHALATION RT-Q6H PRN 01/08/16 11/29/18 H istory Ipratropium-Albuterol Nebulize 3 ml INHALATION RT-Q4H PRN 01/08/16 11/29/18 History [Duoneb 0.5 mg-3 mg/3 ml Soln] Levothyroxine Sodium [Synthroid] 150 mcg PO DAILY 09/08/17 11/29/18 History ALPRAZolam [Xanax] 0.25 mg PO TID PRN 11/29/18 11/29/18 History Aspirin 650 mg PO Q48H 11/29/18 11/29/18 History predniSONE 5 mg PO DAILY 11/29/18 11/29/18 History Allergies Allergy/AdvReac Type Severity Reaction Status Date / Time bacitracin Allergy Rash/Hives Verified 11/29/18 15:12 [From Neosporin ([id number])] neomycin Allergy Rash/Hives Verified 11/29/18 15:12 [From Neosporin ([id number])] Penicillins Allergy Rash/Hives Verified 11/29/18 15:12 polymyxin B Allergy Rash/Hives Verified 11/29/18 15:12 [From Neosporin ([id number])] levofloxacin [From Levaquin] AdvReac WEAKNESS Verified 11/29/18 15:12 ELDA/POLY/DEX Allergy Rash/Hives Uncoded 11/29/18 14:30 Physical Exam Vitals: Vital Signs Temp Pulse Pulse Resp BP BP BP 11/30/18 11:16 111 H 11/30/18 11:07 114 H 11/30/18 07:46 104 H 11/30/18 07:30 100 11/30/18 05:48 98.0 F 91 18 160/82 11/29/18 21:00 98.1 F 111 H 20 172/84 11/29/18 19:49 101 H 18 11/29/18 19:40 103 H 18 11/29/18 19:10 98.3 F 93 22 150/93 11/29/18 19:00 93 19 151/98 11/29/18 18:30 144/92 11/29/18 18:10 98 144/92 11/29/18 18:00 92 149/83 11/29/18 17:30 96 149/99 11/29/18 17:00 99 151/79 11/29/18 16:40 99 151/79 11/29/18 16:02 102 H 11/29/18 15:50 98 148/88 11/29/18 15:33 106 H 11/29/18 15:10 106 H 132/77 11/29/18 14:45 24 11/29/18 14:27 99.0 F 109 H 20 123/66 Pulse Ox 11/30/18 11:16 11/30/18 11:07 11/30/18 07:46 11/30/18 07:30 96 11/30/18 05:48 92 L 11/29/18 21:00 92 L 11/29/18 19:49 11/29/18 19:40 11/29/18 19:10 97 11/29/18 19:00 95 11/29/18 18:30 95 11/29/18 18:10 94 L 11/29/18 18:00 95 11/29/18 17:30 95 11/29/18 17:00 97 11/29/18 16:40 96 11/29/18 16:02 11/29/18 15:50 99 11/29/18 15:33 11/29/18 15:10 95 11/29/18 14:45 11/29/18 14:27 96 Intake and Output 11/29/18 11/30/18 11/30/18 22:59 06:59 14:59 Other: # Voids 1 1 GENERAL EXAM: Alert, pleasant, 73-year-old white female, 3 L of oxygen with a pulse ox of 99% comfortable in no apparent distress. HEAD: Normocephalic/atraumatic. EYES: Normal reaction of pupils, equal size. Conjunctiva pink, sclera white. NOSE: Clear with pink turbinates. THROAT: No erythema or exudates. NECK: No masses, no JVD, no thyroid enlargement, no adenopathy. CHEST: No chest wall deformity. Symmetrical expansion. LUNGS: Equal air entry with diminished breath sounds. CVS: Regular rate and rhythm, normal S1 and S2, no gallops, no murmurs, no rubs ABDOMEN: Soft, nontender. No hepatosplenomegaly, normal bowel sounds, no guarding or rigidity. EXTREMITIES: No clubbing, no edema, no cyanosis, 2+ pulses and upper and lower extremities. MUSCULOSKELETAL: Muscle strength and tone normal. SPINE: No scoliosis or deformity SKIN: No rashes CENTRAL NERVOUS SYSTEM: Alert and oriented -3. No focal deficits, tone is normal in all 4 extremities. PSYCHIATRIC: Alert and oriented -3. Appropriate affect. Intact judgment and insight. Results - Laboratory Findings CBC and BMP: 11/29/18 15:35 11/29/18 15:35 PT/INR, D-dimer PT 9.3 sec (9.0-12.0) 11/29/18 15:35 INR 0.8 (<1.2) 11/29/18 15:35 Abnormal lab findings: Abnormal Labs 11/29/18 11/29/18 11/29/18 15:35 15:35 15:35 WBC 11.5 H MCHC 30.9 L Neutrophils # 9.9 H Lymphocytes # 0.8 L APTT 21.1 L Sodium 135 L Chloride 93 L Carbon Dioxide 37 H BUN 20 H Glucose 164 H POC Glucose (mg/dL) 11/30/18 11/30/18 07:10 11:33 WBC MCHC Neutrophils # Lymphocytes # APTT Sodium Chloride Carbon Dioxide BUN Glucose POC Glucose (mg/dL) 212 H 218 H - Diagnostic Findings Chest x-ray: report reviewed, image reviewed Additional studies: EKG reviewed Assessment and Plan Plan: Assessment: #1. Acute exacerbation of COPD, chest x-ray did not show any acute cardiopulmonary findings #2. Chronic hypoxemic and hypercapnic respiratory failure related to advanced COPD, stage IV, with baseline FEV1 of 28% of predicted, oxygen and prednisone dependent #3. Chronic and ongoing nicotine dependence, currently down to 2 cigarettes a day #4. Hypertension #5. Osteoarthritis #6. Parathyroidism #7. Anxiety Plan: Continue IV steroids, DuoNeb nebulized treatments, we will stop the Symbicort and switch the patient to Pulmicort and Perforomist, we'll add doxycycline, and for culture, chest x-ray has been reviewed by Dr. Hicks, patient has been seen and evaluated by Dr. Hicks. No acute cardiopulmonary process on the chest x-ray. We'll treat the patient's COPD. We'll continue to follow I performed a history & physical examination of the patient and discussed their management with my nurse practitioner, Galina Mar. I reviewed the nurse practitioner's note and agree with the documented findings and plan of care. Lung sounds are positive for diminished breath sounds. The findings and the impression was discussed with the patient. I attest to the documentation by the nurse practitioner. Time with Patient: Greater than 30
[2018-11-30] MEDS: IPRATROPIUM-ALBUTEROL 3 ML NEB INHALATION SCH ×3 (13:56→20:41)
--- NOTE | 2018-11-30 14:37 | P.HPIM ---
History of Present Illness 71-year-old female with history of advanced COPD uses 3 L of oxygen at home if even of around 21% came in with compensative short that can use to smoke one to 2 cigarettes per day and is not quit completely after this admission. Patient was comparing of cough unable to bring up anything patient was started on systemic steroids chest x-ray did not show any pneumonia patient doesn't have any fevers. Patient shortness of breath improved significantly compared to yesterday patient did not have any adenomatous today today she is wheezing Review of Systems REVIEW OF SYSTEMS: CONSTITUTIONAL: No fever, no malaise, no fatigue. HEENT: No recent visual problems or hearing problems. Denied any sore throat. CARDIOVASCULAR: No chest pain, orthopnea, PND, no palpitations, no syncope. PULMONARY: as mentioned in HPI GASTROINTESTINAL: No diarrhea, no nausea, no vomiting, no abdominal pain. NEUROLOGICAL: No headaches, no weakness, no numbness. HEMATOLOGICAL: Denies any bleeding or petechiae. GENITOURINARY: Denies any burning micturition, frequency, or urgency. MUSCULOSKELETAL/RHEUMATOLOGICAL: Denies any joint pain, swelling, or any muscle pain. ENDOCRINE: Denies any polyuria or polydipsia. The rest of the 14-point review of systems is negative. Past Medical History Past Medical History: Chest Pain / Angina, Heart Failure, COPD, Hypertension, Os teoarthritis (OA), Thyroid Disorder Additional Past Medical History / Comment(s): Advanced COPD, chronic hypoxic respiratory failure, former smoker, hypertension, hypothyroidism, skeletal chest wall pain, chronic anxiety ,leg and foot wounds History of Any Multi-Drug Resistant Organisms: None Reported Past Surgical History: Heart Catheterization, Hysterectomy, Tubal Ligation Additional Past Surgical History / Comment(s): cataracts removed Past Anesthesia/Blood Transfusion Reactions: Previous Problems w/ Anesthesia, Postoperative Nausea & Vomiting (PONV) Additional Past Anesthesia/Blood Transfusion Reaction / Comment(s): oxygen was "low" post op, nausea one time Past Psychological History: Anxiety Smoking Status: Current some day smoker Past Alcohol Use History: None Reported, Rare Additional Past Alcohol Use History / Comment(s): special occasions only Past Drug Use History: None Reported - Past Family History Mother History Unknown: Yes Family Medical History: Cancer, Thyroid Disorder Additional Family Medical History / Comment(s): Liver Cancer Father History Unknown: Yes Family Medical History: Cancer Medications and Allergies Home Medications Medication Instructions Recorded Confirmed Type Budesonide-Formot 160-4.5 Mcg 2 puff INHALATION RT-BID 12/11/13 11/29/18 History [Symbicort 160-4.5 Mcg Inhaler] Lisinopril [Zestril] 20 mg PO BID 12/11/13 11/29/18 History Albuterol Sulfate [Proair Hfa] 2 puff INHALATION RT-Q6H PRN 01/08/16 11/29/18 History Ipratropium-Albuterol Nebulize 3 ml INHALATION RT-Q4H PRN 01/08/16 11/29/18 History [Duoneb 0.5 mg-3 mg/3 ml Soln] Levothyroxine Sodium [Synthroid] 150 mcg PO DAILY 09/08/17 11/29/18 History ALPRAZolam [Xanax] 0.25 mg PO TID PRN 11/29/18 11/29/18 History Aspirin 650 mg PO Q48H 11/29/18 11/29/18 History predniSONE 5 mg PO DAILY 11/29/18 11/29/18 History Allergies Allergy/AdvReac Type Severity Reaction Status Date / Time bacitracin Allergy Rash/Hives Verified 11/29/18 15:12 [From Neosporin ([id number])] neomycin Allergy Rash/Hives Verified 11/29/18 15:12 [From Neosporin ([id number])] Penicillins Allergy Rash/Hives Verified 11/29/18 15:12 polymyxin B Allergy Rash/Hives Verified 11/29/18 15:12 [From Neosporin ([id number])] levofloxacin [From Levaquin] AdvReac WEAKNESS Verified 11/29/18 15:12 ELDA/POLY/DEX Allergy Rash/Hives Uncoded 11/29/18 14:30 Physical Exam Vitals: Vital Signs Temp Pulse Pulse Resp BP BP BP 11/30/18 13:39 97.6 F 118 H 16 147/78 11/30/18 11:16 111 H 11/30/18 11:07 114 H 11/30/18 07:46 104 H 11/30/18 07:30 100 11/30/18 05:48 98.0 F 91 18 160/82 06/12/19 21:00 98.1 F 111 H 20 172/84 11/29/18 19:49 101 H 18 11/29/18 19:40 103 H 18 11/29/18 19:10 98.3 F 93 22 150/93 11/29/18 19:00 93 19 151/98 11/29/18 18:30 144/92 11/29/18 18:10 98 144/92 11/29/18 18:00 92 149/83 11/29/18 17:30 96 149/99 11/29/18 17:00 99 151/79 11/29/18 16:40 99 151/79 11/29/18 16:02 102 H 11/29/18 15:50 98 148/88 11/29/18 15:33 106 H 11/29/18 15:10 106 H 132/77 11/29/18 14:45 24 Pulse Ox 11/30/18 13:39 93 L 11/30/18 11:16 11/30/18 11:07 11/30/18 07:46 11/30/18 07:30 96 11/30/18 05:48 92 L 11/29/18 21:00 92 L 11/29/18 19:49 11/29/18 19:40 11/29/18 19:10 97 11/29/18 19:00 95 11/29/18 18:30 95 11/29/18 18:10 94 L 11/29/18 18:00 95 11/29/18 17:30 95 11/29/18 17:00 97 11/29/18 16:40 96 11/29/18 16:02 11/29/18 15:50 99 11/29/18 15:33 11/29/18 15:10 95 11/29/18 14:45 Intake and Output 11/29/18 11/30/18 11/30/18 22:59 06:59 14:59 Other: # Voids 1 1 4 # Bowel Movements 1 PHYSICAL EXAMINATION: GENERAL: The patient is alert and oriented x3, not in any acute distress. Well developed, well nourished. HEENT: Pupils are round and equally reacting to light. EOMI. No scleral icterus. No conjunctival pallor. Normocephalic, atraumatic. No pharyngeal erythema. No thyromegaly. CARDIOVASCULAR: S1 and S2 present. No murmurs, rubs, or gallops. PULMONARY: Cdecreased air entry into bilateral lung bauman with expiratory wheezing on exam ABDOMEN: Soft, nontender, nondistended, normoactive bowel sounds. No palpable organomegaly. MUSCULOSKELETAL: No joint swelling or deformity. EXTREMITIES: No cyanosis, clubbing, or pedal edema. NEUROLOGICAL: Gross neurological examination did not reveal any focal deficits. SKIN: No rashes. Results CBC & Chem 7: 11/29/18 15:35 11/29/18 15:35 Labs: Abnormal Lab Results - Last 24 Hours (Table) 11/29/18 11/29/18 11/29/18 Range/Units 15:35 15:35 15:35 WBC 11.5 H (3.8-10.6) k/uL MCHC 30.9 L (31.0-37.0) g/dL Neutrophils # 9.9 H (1.3-7.7) k/uL Lymphocytes # 0.8 L (1.0-4.8) k/uL APTT 21.1 L (22.0-30.0) sec Sodium 135 L (137-145) mmol/L Chloride 93 L (98-107) mmol/L Carbon Dioxide 37 H (22-30) mmol/L BUN 20 H (7-17) mg/dL Glucose 164 H (74-99) mg/dL POC Glucose (mg/dL) (75-99) mg/dL 11/30/18 11/30/18 Range/Units 07:10 11:33 WBC (3.8-10.6) k/uL MCHC (31.0-37.0) g/dL Neutrophils # (1.3-7.7) k/uL Lymphocytes # (1.0-4.8) k/uL APTT (22.0-30.0) sec Sodium (137-145) mmol/L Chloride (98-107) mmol/L Carbon Dioxide (22-30) mmol/L BUN (7-17) mg/dL Glucose (74-99) mg/dL POC Glucose (mg/dL) 212 H 218 H (75-99) mg/dL Thrombosis Risk Factor Assmnt - Choose All That Apply Each Factor Represents 1 point: Abnormal pulmonary function (COPD) Other Risk Factors: Yes Each Risk Factor Represents 3 Points: Age 75 years or older Other congenital or acquired thrombophilia - If yes, enter type in comment: No Thrombosis Risk Factor Assessment Total Risk Factor Score: 4 Thrombosis Risk Factor Assessment Level: Moderate Risk Assessment and Plan Plan: acute on chronic hypercapnic respiratory failure secondary to COPD exacerbation: Patient will be continued on systemic steroids inhalational treatments.patient was also started on doxycycline -Ongoing nicotine dependence: Counseling was provided -Hypertension -Anxiety disorder -hypothyroidism For above-mentioned chronic medical problems patient will be resumed on appropriate home medications. -DVT prophylaxis early ambulation GI prophylaxis with Pepcid
[2018-11-30 16:52] LABS: Glucose,Whole Blood 232 mg/dL (75-99)
[2018-11-30] MEDS: FORMOTEROL FUMARATE 20 MCG/2 ML NEBU INHALATION SCH (20:41)
[2018-11-30] MEDS: BUDESONIDE 1 MG/2 ML NEBU INHALATION SCH (20:43)
[2018-11-30 21:37] LABS: Glucose,Whole Blood 209 mg/dL (75-99)
[2018-11-30] MEDS: FAMOTIDINE 20 MG TAB PO SCH (21:48)
[2018-12-01] MEDS: methylPREDNISolone SOD SUCCI 125 MG/2 ML VIAL IV SCH ×3 (05:41→17:54)
[2018-12-01] MEDS: LEVOTHYROXINE 75 MCG TAB PO SCH (05:42)
[2018-12-01] MEDS: BUDESONIDE 1 MG/2 ML NEBU INHALATION SCH ×2 (07:09→20:21)
[2018-12-01] MEDS: IPRATROPIUM-ALBUTEROL 3 ML NEB INHALATION SCH ×4 (07:09→20:21)
[2018-12-01] MEDS: FORMOTEROL FUMARATE 20 MCG/2 ML NEBU INHALATION SCH ×2 (07:09→20:21)
[2018-12-01 07:18] LABS: Glucose,Whole Blood 208 mg/dL (75-99)
[2018-12-01] MEDS: DOXYCYCLINE 100 MG CAP PO SCH ×2 (07:23→21:14)
[2018-12-01] MEDS: LISINOPRIL 20 MG TAB PO SCH ×2 (07:23→21:14)
[2018-12-01] MEDS: FAMOTIDINE 20 MG TAB PO SCH ×2 (07:23→21:14)
[2018-12-01] MEDS: INSULIN ASPART (NovoLOG) 100 UNIT/ML VIAL SQ SCH ×4 (07:24→21:14)
[2018-12-01] MEDS: ALPRAZolam 0.25 MG TAB PO PRN ×2 (11:13→21:14)
[2018-12-01 11:55] LABS: Glucose,Whole Blood 312 mg/dL (75-99)
--- NOTE | 2018-12-01 13:24 | P.PN ---
Subjective Progress Note Date: 12/01/18 Principal diagnosis: Acute exacerbation of COPD This is 73-year-old white female patient with past medical history of advanced oxygen-dependent COPD with a baseline FEV1 of 28% of predicted, chronic and ongoing nicotine dependence, patient is currently down to 2 cigarettes a day, hypertension, osteoarthritis, hypothyroidism, anxiety, who presented to the hospital on 11/29/2018 with complaints of difficulty breathing over the last 3 weeks. Patient has been treated with Z-Marc, patient completed it, and it did seem to help for a brief period of time however her symptoms recurred, and patient feels increasingly more short of breath. She is coughing up a lot of yellow sputum. Denied any fever or chills, denied any chest pain, denied any palpitations. No nausea vomiting or diarrhea. No headache, lightheadedness or dizziness. No lower extremity swelling. Patient is supposed to be taken on Symbicort, but she has been having difficulty affording her medications, and it costs her over $300 out of pocket. He is on Medicare and his [employer] for supplemental coverage, which will cover nebulized Pulmicort and Perforomist. She does take maintenance prednisone dose of 5 mg daily. Chest x- ray completed showing no acute cardiopulmonary process. Low-grade fever on admission, with 99F, 2 sat is 96% on 3 L, hemodynamically patient is stable. Showed white blood cell, 11.5, hemoglobin is 12.7, INR 0.8, sodium is 135, potassium is 4.8, chloride is 93, CO2 is 37, BUN is 20, creatinine 0.65, lactic acid was 1.3, troponin was negative 1. LFTs were within normal limits. Patient was started on nebulized bronchodilators, IV steroids. On 12/01/2018 patient seen in follow-up on medical surgical floor. She is improving, remains on supplemental oxygen, and her pulse ox is ranging 86-93%, still dyspneic and wheezy, particularly with exertion, breathing somewhat easier, afebrile. Her culture showed no growth. On sounds reveal diminished breath sounds, with end expiratory wheezes, she started to bring up some white colored sputum. Has a congested cough. Objective - Vital Signs Vital signs: Vital Signs Temp 98.4 F 12/01/18 12:33 Pulse 121 H 12/01/18 12:33 Resp 18 12/01/18 12:33 BP 168/78 12/01/18 12:33 Pulse Ox 86 L 12/01/18 12:33 Intake & Output 11/30/18 12/01/18 12/01/18 18:59 06:59 18:59 Intake Total 400 Balance 400 Intake: Oral 400 Other: # Voids 4 2 # Bowel Movements 1 - Exam GENERAL EXAM: Alert, pleasant, 73-year-old white female, 3 L of oxygen with a pulse ox of 93% comfortable in no apparent distress. HEAD: Normocephalic/atraumatic. EYES: Normal reaction of pupils, equal size. Conjunctiva pink, sclera white. NOSE: Clear with pink turbinates. THROAT: No erythema or exudates. NECK: No masses, no JVD, no thyroid enlargement, no adenopathy. CHEST: No chest wall deformity. Symmetrical expansion. LUNGS: Equal air entry with diminished breath sounds. CVS: Regular rate and rhythm, normal S1 and S2, no gallops, no murmurs, no rubs ABDOMEN: Soft, nontender. No hepatosplenomegaly, normal bowel sounds, no guarding or rigidity. EXTREMITIES: No clubbing, no edema, no cyanosis, 2+ pulses and upper and lower extremities. MUSCULOSKELETAL: Muscle strength and tone normal. SPINE: No scoliosis or deformity SKIN: No rashes CENTRAL NERVOUS SYSTEM: Alert and oriented -3. No focal deficits, tone is normal in all 4 extremities. PSYCHIATRIC: Alert and oriented -3. Appropriate affect. Intact judgment and insight. - Labs CBC & Chem 7: 11/29/18 15:35 11/29/18 15:35 Labs: Abnormal Lab Results - Last 24 Hours (Table) 11/30/18 11/30/18 12/01/18 Range/Units 16:50 21:16 07:06 POC Glucose (mg/dL) 232 H 209 H 208 H (75-99) mg/dL 12/01/18 Range/Units 11:53 POC Glucose (mg/dL) 312 H (75-99) mg/dL Microbiology - Last 24 Hours (Table) 11/29/18 15:35 Blood Culture - Preliminary Blood No Growth after 24 hours Assessment and Plan Plan: Assessment: #1. Acute exacerbation of COPD, chest x-ray did not show any acute cardiopulmonary findings #2. Chronic hypoxemic and hypercapnic respiratory failure related to advanced COPD, stage IV, with baseline FEV1 of 28% of predicted, oxygen and prednisone dependent #3. Chronic and ongoing nicotine dependence, currently down to 2 cigarettes a day #4. Hypertension #5. Osteoarthritis #6. Parathyroidism #7. Anxiety Plan: Continue current medical treatment, current steroids, Pulmicort, Perforomist, DuoNeb nebulized treatments, patient states she is breathing easier today, slight improvement, starting to bring up some sputum. I performed a history & physical examination of the patient and discussed their management with my nurse practitioner, Galina Mar. I reviewed the nurse practitioner's note and agree with the documented findings and plan of care. Lung sounds are positive for diminished breath sounds. The findings and the impression was discussed with the patient. I attest to the documentation by the nurse practitioner. Time with Patient: Less than 30
[2018-12-01 17:06] LABS: Glucose,Whole Blood 281 mg/dL (75-99)
--- NOTE | 2018-12-01 17:14 | P.PN ---
Subjective Patient is admitted for COPD exacerbation patient was much better. Still has significant wheezing on exam pulmonology is recommending continued hosp italization and IV steroids. Constitutional: Denied any fatigue denied any fever. Cardio vascular: denied any chest pain, palpitations Gastrointestinal denied any nausea vomiting Pulmonary: As mentioned in HPI Neurologic denied any new focal deficits All inpatient medications were reviewed and appropriate changes in these medications as dictated in the interval history and assessment and plan. Objective - Vital Signs Vital signs: Vital Signs Temp 98.4 F 12/01/18 12:33 Pulse 100 12/01/18 16:01 Resp 18 12/01/18 12:33 BP 168/78 12/01/18 12:33 Pulse Ox 86 L 12/01/18 12:33 Intake & Output 11/30/18 12/01/18 12/01/18 18:59 06:59 18:59 Intake Total 400 Balance 400 Intake: Oral 400 Other: # Voids 4 2 3 # Bowel Movements 1 0 - Exam PHYSICAL EXAMINATION: GENERAL: The patient is alert and oriented x3, not in any acute distress. Well developed, well nourished. HEENT: Pupils are round and equally reacting to light. EOMI. No scleral icterus. No conjunctival pallor. Normocephalic, atraumatic. No pharyngeal erythema. No thyromegaly. CARDIOVASCULAR: S1 and S2 present. No murmurs, rubs, or gallops. PULMONARY: Significant expiratory wheezing on exam ABDOMEN: Soft, nontender, nondistended, normoactive bowel sounds. No palpable organomegaly. MUSCULOSKELETAL: No joint swelling or deformity. EXTREMITIES: No cyanosis, clubbing, or pedal edema. NEUROLOGICAL: Gross neurological examination did not reveal any focal deficits. SKIN: No rashes. - Labs CBC & Chem 7: 11/29/18 15:35 11/29/18 15:35 Labs: Abnormal Lab Results - Last 24 Hours (Table) 11/30/18 12/01/18 12/01/18 Range/Units 21:16 07:06 11:53 POC Glucose (mg/dL) 209 H 208 H 312 H (75-99) mg/dL 12/01/18 Range/Units 17:04 POC Glucose (mg/dL) 281 H (75-99) mg/dL Microbiology - Last 24 Hours (Table) 11/29/18 15:35 Blood Culture - Preliminary Blood No Growth after 24 hours Assessment and Plan Plan: acute on chronic hypercapnic respiratory failure secondary to COPD exacerbation: Patient will be continued on systemic steroids inhalational treatments.patient was also started on doxycycline -Ongoing nicotine dependence: Counseling was provided -Hypertension -Anxiety disorder -hypothyroidism For above-mentioned chronic medical problems patient will be resumed on appropriate home medications. -DVT prophylaxis early ambulation GI prophylaxis with Pepcid
[2018-12-01 21:01] LABS: Glucose,Whole Blood 257 mg/dL (75-99)
[2018-12-02] MEDS: methylPREDNISolone SOD SUCCI 125 MG/2 ML VIAL IV SCH ×5 (00:23→23:05)
[2018-12-02] MEDS: LEVOTHYROXINE 75 MCG TAB PO SCH (05:42)
[2018-12-02 06:45] LABS: Glucose,Whole Blood 245 mg/dL (75-99)
[2018-12-02] MEDS: BUDESONIDE 1 MG/2 ML NEBU INHALATION SCH ×2 (07:26→19:21)
[2018-12-02] MEDS: FORMOTEROL FUMARATE 20 MCG/2 ML NEBU INHALATION SCH ×2 (07:26→19:21)
[2018-12-02] MEDS: IPRATROPIUM-ALBUTEROL 3 ML NEB INHALATION SCH ×4 (07:26→19:21)
[2018-12-02] MEDS: FAMOTIDINE 20 MG TAB PO SCH ×2 (07:55→20:27)
[2018-12-02] MEDS: ASPIRIN 325 MG TAB PO SCH (07:55)
[2018-12-02] MEDS: ALPRAZolam 0.25 MG TAB PO PRN ×2 (07:55→20:27)
[2018-12-02] MEDS: DOXYCYCLINE 100 MG CAP PO SCH ×2 (07:56→20:27)
[2018-12-02] MEDS: INSULIN ASPART (NovoLOG) 100 UNIT/ML VIAL SQ SCH ×4 (07:56→21:08)
[2018-12-02] MEDS: LISINOPRIL 20 MG TAB PO SCH ×2 (08:03→20:27)
[2018-12-02 11:22] LABS: Glucose,Whole Blood 295 mg/dL (75-99)
--- NOTE | 2018-12-02 12:53 | P.PN ---
Subjective Patient is admitted for COPD exacerbation patient was much better. Still has significant wheezing on exam pulmonology is recommending continued hosp italization and IV steroids. 12/02/2018 Patient is bit worse today decreased air entry significant expiratory wheezing on exam Constitutional: Denied any fatigue denied any fever. Cardio vascular: denied any chest pain, palpitations Gastrointestinal denied any nausea vomiting Pulmonary: As mentioned in HPI Neurologic denied any new focal deficits All inpatient medications were reviewed and appropriate changes in these medications as dictated in the interval history and assessment and plan. Objective - Vital Signs Vital signs: Vital Signs Temp 98.1 F 12/02/18 12:44 Pulse 107 H 12/02/18 12:44 Resp 16 12/02/18 12:44 BP 151/82 12/02/18 12:44 Pulse Ox 96 12/02/18 12:44 Intake & Output 12/01/18 12/02/18 12/02/18 18:59 06:59 18:59 Intake Total 400 400 Balance 400 400 Weight 65 kg Intake: Oral 400 400 Other: # Voids 3 1 1 # Bowel Movements 0 0 - Exam PHYSICAL EXAMINATION: GENERAL: The patient is alert and oriented x3, not in any acute distress. Well developed, well nourished. HEENT: Pupils are round and equally reacting to light. EOMI. No scleral icterus. No conjunctival pallor. Normocephalic, atraumatic. No pharyngeal erythema. No thyromegaly. CARDIOVASCULAR: S1 and S2 present. No murmurs, rubs, or gallops. PULMONARY: significantly decreased air entry with significant expiratory wheezing on exam ABDOMEN: Soft, nontender, nondistended, normoactive bowel sounds. No palpable organomegaly. MUSCULOSKELETAL: No joint swelling or deformity. EXTREMITIES: No cyanosis, clubbing, or pedal edema. NEUROLOGICAL: Gross neurological examination did not reveal any focal deficits. SKIN: No rashes. - Labs CBC & Chem 7: 11/29/18 15:35 11/29/18 15:35 Labs: Abnormal Lab Results - Last 24 Hours (Table) 12/01/18 12/01/18 12/02/18 Range/Units 17:04 20:58 06:43 POC Glucose (mg/dL) 281 H 257 H 245 H (75-99) mg/dL 12/02/18 Range/Units 11:20 POC Glucose (mg/dL) 295 H (75-99) mg/dL Microbiology - Last 24 Hours (Table) 11/29/18 15:35 Blood Culture - Preliminary Blood No Growth after 48 hours Assessment and Plan Plan: acute on chronic hypercapnic respiratory failure secondary to COPD exacerbation: Patient will be continued on systemic steroids inhalational treatments.patient was also started on doxycycline -Ongoing nicotine dependence: Counseling was provided -Hypertension -Anxiety disorder -hypothyroidism For above-mentioned chronic medical problems patient will be resumed on appropriate home medications. -DVT prophylaxis early ambulation GI prophylaxis with Pepcid
--- NOTE | 2018-12-02 14:01 | P.PN ---
Subjective Progress Note Date: 12/02/18 This is 73-year-old white female patient with past medical history of advanced oxygen-dependent COPD with a baseline FEV1 of 28% of predicted, chronic and ongoing nicotine dependence, patient is currently down to 2 cigarettes a day, hypertension, osteoarthritis, hypothyroidism, anxiety, who presented to the hospital on 11/29/2018 with complaints of difficulty breathing over the last 3 weeks. Patient has been treated with Z-Marc, patient completed it, and it did seem to help for a brief period of time however her symptoms recurred, and patient feels increasingly more short of breath. She is coughing up a lot of yellow sputum. Denied any fever or chills, denied any chest pain, denied any palpitations. No nausea vomiting or diarrhea. No headache, lightheadedness or dizziness. No lower extremity swelling. Patient is supposed to be taken on Symbicort, but she has been having difficulty affording her medications, and it costs her over $300 out of pocket. He is on Medicare and his [employer] for supplemental coverage, which will cover nebulized Pulmicort and Perforomist. She does take maintenance prednisone dose of 5 mg daily. Chest x- ray completed showing no acute cardiopulmonary process. Low-grade fever on admission, with 99F, 2 sat is 96% on 3 L, hemodynamically patient is stable. Showed white blood cell, 11.5, hemoglobin is 12.7, INR 0.8, sodium is 135, potassium is 4.8, chloride is 93, CO2 is 37, BUN is 20, creatinine 0.65, lactic acid was 1.3, troponin was negative 1. LFTs were within normal limits. Patient was started on nebulized bronchodilators, IV steroids. On 12/01/2018 patient seen in follow-up on medical surgical floor. She is improving, remains on supplemental oxygen, and her pulse ox is ranging 86-93%, still dyspneic and wheezy, particularly with exertion, breathing somewhat easier, afebrile. Her culture showed no growth. On sounds reveal diminished breath sounds, with end expiratory wheezes, she started to bring up some white colored sputum. Has a congested cough. On 12/02/2018 the patient is still being treated for an acute COPD exacerbation. Not much of an improvement since yesterday. Her secretions that are being coughed out are clear but thick. She is on Perforomist and Pulmicort neb last treatment twice a day. She is on DuoNeb nebulized treatments around the clock. She is also on doxycycline and IV Solu-Medrol. We'll continue to follow. Objective - Vital Signs Vital signs: Vital Signs Temp 98.1 F 12/02/18 12:44 Pulse 107 H 12/02/18 12:44 Resp 16 12/02/18 12:44 BP 151/82 12/02/18 12:44 Pulse Ox 96 12/02/18 12:44 Intake & Output 12/01/18 12/02/18 12/02/18 18:59 06:59 18:59 Intake Total 400 800 Balance 400 800 Weight 65 kg Intake: Oral 400 800 Other: # Voids 3 1 2 # Bowel Movements 0 0 - Exam GENERAL EXAM: Alert, pleasant, 73-year-old white female, 3 L of oxygen with a pulse ox of 93% comfortable in no apparent distress. HEAD: Normocephalic/atraumatic. EYES: Normal reaction of pupils, equal size. Conjunctiva pink, sclera white. NOSE: Clear with pink turbinates. THROAT: No erythema or exudates. NECK: No masses, no JVD, no thyroid enlargement, no adenopathy. CHEST: No chest wall deformity. Symmetrical expansion. LUNGS: Equal air entry with diminished breath sounds. CVS: Regular rate and rhythm, normal S1 and S2, no gallops, no murmurs, no rubs ABDOMEN: Soft, nontender. No hepatosplenomegaly, normal bowel sounds, no guardi ng or rigidity. EXTREMITIES: No clubbing, no edema, no cyanosis, 2+ pulses and upper and lower extremities. MUSCULOSKELETAL: Muscle strength and tone normal. SPINE: No scoliosis or deformity SKIN: No rashes CENTRAL NERVOUS SYSTEM: Alert and oriented -3. No focal deficits, tone is normal in all 4 extremities. PSYCHIATRIC: Alert and oriented -3. Appropriate affect. Intact judgment and insight. - Labs CBC & Chem 7: 11/29/18 15:35 11/29/18 15:35 Labs: Abnormal Lab Results - Last 24 Hours (Table) 12/01/18 12/01/18 12/02/18 Range/Units 17:04 20:58 06:43 POC Glucose (mg/dL) 281 H 257 H 245 H (75-99) mg/dL 12/02/18 Range/Units 11:20 POC Glucose (mg/dL) 295 H (75-99) mg/dL Microbiology - Last 24 Hours (Table) 11/29/18 15:35 Blood Culture - Preliminary Blood No Growth after 48 hours Assessment and Plan Plan: #1. Acute exacerbation of COPD, chest x-ray did not show any acute cardiopulmonary findings #2. Chronic hypoxemic and hypercapnic respiratory failure related to advanced COPD, stage IV, with baseline FEV1 of 28% of predicted, oxygen and prednisone dependent #3. Chronic and ongoing nicotine dependence, currently down to 2 cigarettes a day #4. Hypertension #5. Osteoarthritis #6. Parathyroidism #7. Anxiety Plan Continue same treatment. Improvement is limited for today. We'll continue to follow.
[2018-12-02 16:37] LABS: Glucose,Whole Blood 300 mg/dL (75-99)
[2018-12-02 21:07] LABS: Glucose,Whole Blood 288 mg/dL (75-99)
[2018-12-03] MEDS: ACETAMINOPHEN TAB 325 MG TAB PO PRN (01:35)
[2018-12-03] MEDS: ALPRAZolam 0.25 MG TAB PO PRN ×2 (02:29→07:41)
[2018-12-03 02:41] LABS: Creatine Kinase 42 U/L (30-135)
[2018-12-03 02:55] LABS: Creatine Kinase MB 2.3 ng/mL (0.0-2.4); Troponin I <0.012 ng/mL (0.000-0.034)
[2018-12-03] MEDS: methylPREDNISolone SOD SUCCI 125 MG/2 ML VIAL IV SCH ×4 (05:24→23:39)
[2018-12-03] MEDS: LEVOTHYROXINE 75 MCG TAB PO SCH (05:25)
[2018-12-03 07:38] LABS: Glucose,Whole Blood 295 mg/dL (75-99)
[2018-12-03] MEDS: DILTIAZEM ORAL 30 MG TAB PO SCH ×2 (07:41→21:03)
[2018-12-03] MEDS: LISINOPRIL 20 MG TAB PO SCH ×2 (07:41→21:03)
[2018-12-03] MEDS: FAMOTIDINE 20 MG TAB PO SCH ×2 (07:41→21:03)
[2018-12-03] MEDS: DOXYCYCLINE 100 MG CAP PO SCH ×2 (07:41→21:03)
[2018-12-03] MEDS: INSULIN ASPART (NovoLOG) 100 UNIT/ML VIAL SQ SCH ×4 (07:44→21:03)
[2018-12-03] MEDS: BUDESONIDE 1 MG/2 ML NEBU INHALATION SCH ×2 (08:29→20:30)
[2018-12-03] MEDS: IPRATROPIUM-ALBUTEROL 3 ML NEB INHALATION SCH ×4 (08:29→20:30)
[2018-12-03] MEDS: FORMOTEROL FUMARATE 20 MCG/2 ML NEBU INHALATION SCH ×2 (08:32→20:30)
--- NOTE | 2018-12-03 11:34 | P.PN ---
Subjective Progress Note Date: 12/03/18 Principal diagnosis: Acute exacerbation of advanced chronic obstructive pulmonary disease. This is 73-year-old white female patient with past medical history of advanced oxygen-dependent COPD with a baseline FEV1 of 28% of predicted, chronic and ongoing nicotine dependence, patient is currently down to 2 cigarettes a day, hypertension, osteoarthritis, hypothyroidism, anxiety, who presented to the hospital on 11/29/2018 with complaints of difficulty breathing over the last 3 weeks. Patient has been treated with Z-Marc, patient completed it, and it did seem to help for a brief period of time however her symptoms recurred, and patient feels increasingly more short of breath. She is coughing up a lot of yellow sputum. Denied any fever or chills, denied any chest pain, denied any palpitations. No nausea vomiting or diarrhea. No headache, lightheadedness or dizziness. No lower extremity swelling. Patient is supposed to be taken on Symbicort, but she has been having difficulty affording her medications, and it costs her over $300 out of pocket. He is on Medicare and his [employer] for supplemental coverage, which will cover nebulized Pulmicort and Pe rforomist. She does take maintenance prednisone dose of 5 mg daily. Chest x- ray completed showing no acute cardiopulmonary process. Low-grade fever on admission, with 99F, 2 sat is 96% on 3 L, hemodynamically patient is stable. Showed white blood cell, 11.5, hemoglobin is 12.7, INR 0.8, sodium is 135, potassium is 4.8, chloride is 93, CO2 is 37, BUN is 20, creatinine 0.65, lactic acid was 1.3, troponin was negative 1. LFTs were within normal limits. Patient was started on nebulized bronchodilators, IV steroids. On 12/01/2018 patient seen in follow-up on medical surgical floor. She is improving, remains on supplemental oxygen, and her pulse ox is ranging 86-93%, still dyspneic and wheezy, particularly with exertion, breathing somewhat easier, afebrile. Her culture showed no growth. On sounds reveal diminished breath sounds, with end expiratory wheezes, she started to bring up some white colored sputum. Has a congested cough. On 12/02/2018 the patient is still being treated for an acute COPD exacerbation. Not much of an improvement since yesterday. Her secretions that are being coughed out are clear but thick. She is on Perforomist and Pulmicort neb last treatment twice a day. She is on DuoNeb nebulized treatments around the clock. She is also on doxycycline and IV Solu-Medrol. We'll continue to follow. The patient is seen today 12/03/2018 in follow-up on the regular medical floor. She is currently awake and alert in no acute distress. She did have an episode of anxiety and respiratory distress briefly last evening. Currently she is calm and comfortable currently. Maintaining good O2 saturations in the mid 90s on 3 L/m per nasal cannula. The cultures reveal no growth. Troponin negative. She remains on DuoNeb inhalations, Pulmicort and Perforomist, IV Solu-Medrol. Antibiotics in the form of doxycycline. Objective - Vital Signs Vital signs: Vital Signs Temp 98.0 F 12/03/18 05:30 Pulse 106 H 12/03/18 08:54 Resp 18 12/03/18 05:30 BP 149/81 12/03/18 05:30 Pulse Ox 94 L 12/03/18 08:35 Intake & Output 12/02/18 12/03/18 12/03/18 18:59 06:59 18:59 Intake Total 800 400 Balance 800 400 Weight 66 kg Intake: Oral 800 400 Other: # Voids 2 1 1 # Bowel Movements 0 0 - Exam GENERAL EXAM: Alert, pleasant, 73-year-old female, 3 L of oxygen with a pulse ox of 94% comfortable in no apparent distress. HEAD: Normocephalic/atraumatic. EYES: Normal reaction of pupils, equal size. Conjunctiva pink, sclera white. NOSE: Clear with pink turbinates. THROAT: No erythema or exudates. NECK: No masses, no JVD, no thyroid enlargement, no adenopathy. CHEST: No chest wall deformity. Symmetrical expansion. LUNGS: Equal air entry with diminished breath sounds. CVS: Regular rate and rhythm, normal S1 and S2, no gallops, no murmurs, no rubs ABDOMEN: Soft, nontender. No hepatosplenomegaly, normal bowel sounds, no guarding or rigidity. EXTREMITIES: No clubbing, no edema, no cyanosis, 2+ pulses and upper and lower extremities. MUSCULOSKELETAL: Muscle strength and tone normal. SPINE: No scoliosis or deformity SKIN: No rashes CENTRAL NERVOUS SYSTEM: No focal deficits, tone is normal in all 4 extremities. PSYCHIATRIC: Alert and oriented -3. Appropriate affect. Intact judgment and insight. - Labs CBC & Chem 7: 11/29/18 15:35 11/29/18 15:35 Labs: Abnormal Lab Results - Last 24 Hours (Table) 12/02/18 12/02/18 12/03/18 Range/Units 16:34 21:04 07:36 POC Glucose (mg/dL) 300 H 288 H 295 H (75-99) mg/dL Microbiology - Last 24 Hours (Table) 11/29/18 15:35 Blood Culture - Preliminary Blood No Growth after 72 hours Assessment and Plan Assessment: Impression: #1. Acute exacerbation of COPD, chest x-ray did not show any acute cardiopulmonary findings #2. Chronic hypoxemic and hypercapnic respiratory failure related to advanced COPD, stage IV, with baseline FEV1 of 28% of predicted, oxygen and prednisone dependent #3. Chronic and ongoing nicotine dependence, currently down to 2 cigarettes a day #4. Hypertension #5. Osteoarthritis #6. Parathyroidism #7. Anxiety Plan The patient was seen and evaluated by Dr. Hicks. She is improved today compared to yesterday. Did have an episode of anxiety with increasing shortness of breath last night. Continue the current treatment plan. Increase her activ ity as tolerated. We'll continue to follow. I, the cosigning physician, performed a history & physical examination of the patient. Lungs sounds bilateral end expiratory wheeze, diminished. Maintaining good O2 saturations in the 90s on 3 L/m per nasal cannula. I discussed the as sessment and plan of care with my nurse practitioner, Esmer Whalen. I attest to the above note as dictated by her.
[2018-12-03 11:53] LABS: Glucose,Whole Blood 294 mg/dL (75-99)
--- NOTE | 2018-12-03 15:25 | P.PN ---
Subjective Patient is admitted for COPD exacerbation patient was much better. Still has significant wheezing on exam pulmonology is recommending continued hosp italization and IV steroids. 12/02/2018 Patient is bit worse today decreased air entry significant expiratory wheezing on exam 12/03/2018 Patient still has limited air entry and still has wheezing on exam. This may be her baseline but with pulmonology as recommended continue present treatments di scharged tomorrow or day after depending on her improvement. Constitutional: Denied any fatigue denied any fever. Cardio vascular: denied any chest pain, palpitations Gastrointestinal denied any nausea vomiting Pulmonary: As mentioned in HPI Neurologic denied any new focal deficits All inpatient medications were reviewed and appropriate changes in these medications as dictated in the interval history and assessment and plan. Objective - Vital Signs Vital signs: Vital Signs Temp 98.5 F 12/03/18 13:22 Pulse 115 H 12/03/18 13:22 Resp 18 12/03/18 13:22 BP 154/80 12/03/18 13:22 Pulse Ox 92 L 12/03/18 13:22 Intake & Output 12/02/18 12/03/18 12/03/18 18:59 06:59 18:59 Intake Total 800 1550 Balance 800 1550 Weight 66 kg Intake: Oral 800 1550 Other: # Voids 2 1 2 # Bowel Movements 0 0 - Exam PHYSICAL EXAMINATION: GENERAL: The patient is alert and oriented x3, not in any acute distress. Well developed, well nourished. HEENT: Pupils are round and equally reacting to light. EOMI. No scleral icterus. No conjunctival pallor. Normocephalic, atraumatic. No pharyngeal erythema. No thyromegaly. CARDIOVASCULAR: S1 and S2 present. No murmurs, rubs, or gallops. PULMONARY: significantly decreased air entry with significant expiratory wheezing on exam ABDOMEN: Soft, nontender, nondistended, normoactive bowel sounds. No palpable organomegaly. MUSCULOSKELETAL: No joint swelling or deformity. EXTREMITIES: No cyanosis, clubbing, or pedal edema. NEUROLOGICAL: Gross neurological examination did not reveal any focal deficits. SKIN: No rashes. - Labs CBC & Chem 7: 11/29/18 15:35 11/29/18 15:35 Labs: Abnormal Lab Results - Last 24 Hours (Table) 12/02/18 12/02/18 12/03/18 Range/Units 16:34 21:04 07:36 POC Glucose (mg/dL) 300 H 288 H 295 H (75-99) mg/dL 12/03/18 Range/Units 11:52 POC Glucose (mg/dL) 294 H (75-99) mg/dL Microbiology - Last 24 Hours (Table) 11/29/18 15:35 Blood Culture - Preliminary Blood No Growth after 72 hours Assessment and Plan Plan: acute on chronic hypercapnic respiratory failure secondary to COPD exacerbation: Patient will be continued on systemic steroids inhalational treatments.patient was also started on doxycycline -Ongoing nicotine dependence: Counseling was provided -Hypertension -Anxiety disorder -hypothyroidism For above-mentioned chronic medical problems patient will be resumed on appropriate home medications. -DVT prophylaxis early ambulation GI prophylaxis with Pepcid
[2018-12-03 16:57] LABS: Glucose,Whole Blood 355 mg/dL (75-99)
[2018-12-03 20:33] LABS: Glucose,Whole Blood 324 mg/dL (75-99)
[2018-12-04] MEDS: LEVOTHYROXINE 75 MCG TAB PO SCH (05:37)
[2018-12-04] MEDS: methylPREDNISolone SOD SUCCI 125 MG/2 ML VIAL IV SCH ×3 (05:37→17:04)
[2018-12-04 07:09] LABS: Glucose,Whole Blood 309 mg/dL (75-99)
[2018-12-04] MEDS: BUDESONIDE 1 MG/2 ML NEBU INHALATION SCH ×2 (07:11→19:13)
[2018-12-04] MEDS: FORMOTEROL FUMARATE 20 MCG/2 ML NEBU INHALATION SCH ×2 (07:11→19:13)
[2018-12-04] MEDS: IPRATROPIUM-ALBUTEROL 3 ML NEB INHALATION SCH ×4 (07:11→19:13)
[2018-12-04] MEDS: ASPIRIN 325 MG TAB PO SCH (08:12)
[2018-12-04] MEDS: FAMOTIDINE 20 MG TAB PO SCH ×2 (08:12→21:08)
[2018-12-04] MEDS: DOXYCYCLINE 100 MG CAP PO SCH ×2 (08:12→21:04)
[2018-12-04] MEDS: LISINOPRIL 20 MG TAB PO SCH ×2 (08:12→21:04)
[2018-12-04] MEDS: DILTIAZEM ORAL 30 MG TAB PO SCH ×2 (08:12→21:04)
[2018-12-04] MEDS: INSULIN ASPART (NovoLOG) 100 UNIT/ML VIAL SQ SCH ×4 (08:12→21:04)
[2018-12-04 12:12] LABS: Glucose,Whole Blood 287 mg/dL (75-99)
[2018-12-04] MEDS: ENOXAPARIN 40 MG/0.4 ML SYRINGE SQ SCH (13:53)
--- NOTE | 2018-12-04 14:50 | P.PN ---
Subjective Patient is admitted for COPD exacerbation patient was much better. Still has significant wheezing on exam pulmonology is recommending continued hosp italization and IV steroids. 12/02/2018 Patient is bit worse today decreased air entry significant expiratory wheezing on exam 12/03/2018 Patient still has limited air entry and still has wheezing on exam. This may be her baseline but with pulmonology as recommended continue present treatments di scharged tomorrow or day after depending on her improvement. 12/04/2018 Patient still has significant wheezing limited air entry into bilateral lung bauman Constitutional: Denied any fatigue denied any fever. Cardio vascular: denied any chest pain, palpitations Gastrointestinal denied any nausea vomiting Pulmonary: As mentioned in HPI Neurologic denied any new focal deficits All inpatient medications were reviewed and appropriate changes in these medications as dictated in the interval history and assessment and plan. Objective - Vital Signs Vital signs: Vital Signs Temp 97.7 F 12/04/18 05:37 Pulse 92 12/04/18 11:03 Resp 18 12/04/18 08:00 BP 161/76 12/04/18 05:37 Pulse Ox 95 12/04/18 05:37 Intake & Output 12/03/18 12/04/18 12/04/18 18:59 06:59 18:59 Intake Total 1550 Balance 1550 Weight 66 kg 68.5 kg Intake: Oral 1550 Other: # Voids 2 2 # Bowel Movements 0 - Exam PHYSICAL EXAMINATION: GENERAL: The patient is alert and oriented x3, not in any acute distress. Well developed, well nourished. HEENT: Pupils are round and equally reacting to light. EOMI. No scleral icterus. No conjunctival pallor. Normocephalic, atraumatic. No pharyngeal erythema. No thyromegaly. CARDIOVASCULAR: S1 and S2 present. No murmurs, rubs, or gallops. PULMONARY: significantly decreased air entry with significant expiratory wheez ing on exam ABDOMEN: Soft, nontender, nondistended, normoactive bowel sounds. No palpable organomegaly. MUSCULOSKELETAL: No joint swelling or deformity. EXTREMITIES: No cyanosis, clubbing, or pedal edema. NEUROLOGICAL: Gross neurological examination did not reveal any focal deficits. SKIN: No rashes. - Labs CBC & Chem 7: 11/29/18 15:35 11/29/18 15:35 Labs: Abnormal Lab Results - Last 24 Hours (Table) 12/03/18 12/03/18 12/04/18 Range/Units 16:54 20:29 07:07 POC Glucose (mg/dL) 355 H 324 H 309 H (75-99) mg/dL 12/04/18 Range/Units 12:10 POC Glucose (mg/dL) 287 H (75-99) mg/dL Microbiology - Last 24 Hours (Table) 11/29/18 15:35 Blood Culture - Preliminary Blood No Growth after 96 hours Assessment and Plan Plan: acute on chronic hypercapnic respiratory failure secondary to COPD exacerbation: Patient will be continued on systemic steroids inhalational treatments.patient was also started on doxycycline -Ongoing nicotine dependence: Counseling was provided -Hypertension -Anxiety disorder -hypothyroidism For above-mentioned chronic medical problems patient will be resumed on appropriate home medications. -DVT prophylaxis early ambulation GI prophylaxis with Pepcid
--- NOTE | 2018-12-04 15:41 | P.PN ---
Subjective Progress Note Date: 12/04/18 Principal diagnosis: Acute exacerbation of advanced chronic obstructive pulmonary disease. This is 73-year-old white female patient with past medical history of advanced oxygen-dependent COPD with a baseline FEV1 of 28% of predicted, chronic and ongoing nicotine dependence, patient is currently down to 2 cigarettes a day, hypertension, osteoarthritis, hypothyroidism, anxiety, who presented to the hospital on 11/29/2018 with complaints of difficulty breathing over the last 3 weeks. Patient has been treated with Z-Marc, patient completed it, and it did seem to help for a brief period of time however her symptoms recurred, and patient feels increasingly more short of breath. She is coughing up a lot of yellow sputum. Denied any fever or chills, denied any chest pain, denied any palpitations. No nausea vomiting or diarrhea. No headache, lightheadedness or dizziness. No lower extremity swelling. Patient is supposed to be taken on Symbicort, but she has been having difficulty affording her medications, and it costs her over $300 out of pocket. He is on Medicare and his [employer] for supplemental coverage, which will cover nebulized Pulmicort and Pe rforomist. She does take maintenance prednisone dose of 5 mg daily. Chest x- ray completed showing no acute cardiopulmonary process. Low-grade fever on admission, with 99F, 2 sat is 96% on 3 L, hemodynamically patient is stable. Showed white blood cell, 11.5, hemoglobin is 12.7, INR 0.8, sodium is 135, potassium is 4.8, chloride is 93, CO2 is 37, BUN is 20, creatinine 0.65, lactic acid was 1.3, troponin was negative 1. LFTs were within normal limits. Patient was started on nebulized bronchodilators, IV steroids. On 12/01/2018 patient seen in follow-up on medical surgical floor. She is improving, remains on supplemental oxygen, and her pulse ox is ranging 86-93%, still dyspneic and wheezy, particularly with exertion, breathing somewhat easier, afebrile. Her culture showed no growth. On sounds reveal diminished breath sounds, with end expiratory wheezes, she started to bring up some white colored sputum. Has a congested cough. On 12/02/2018 the patient is still being treated for an acute COPD exacerbation. Not much of an improvement since yesterday. Her secretions that are being coughed out are clear but thick. She is on Perforomist and Pulmicort neb last treatment twice a day. She is on DuoNeb nebulized treatments around the clock. She is also on doxycycline and IV Solu-Medrol. We'll continue to follow. The patient is seen today 12/03/2018 in follow-up on the regular medical floor. She is currently awake and alert in no acute distress. She did have an episode of anxiety and respiratory distress briefly last evening. Currently she is calm and comfortable currently. Maintaining good O2 saturations in the mid 90s on 3 L/m per nasal cannula. The cultures reveal no growth. Troponin negative. She remains on DuoNeb inhalations, Pulmicort and Perforomist, IV Solu-Medrol. Antibiotics in the form of doxycycline. The patient is seen today 12/04/2018 in follow-up on the regular medical floor. She is awake and alert in no acute distress. Breathing a bit better today compared to yesterday. Not back to her baseline. Somewhat less bronchospastic a nd wheezy but with minimal activity tolerance. Maintaining O2 saturations in the 90s on 3 L/m per nasal cannula. Blood culture reveals no growth. She remains on DuoNeb inhalations, Pulmicort and Perforomist inhalations, IV Solu- Medrol. Antibiotics in the form of Vibramycin. Objective - Vital Signs Vital signs: Vital Signs Temp 97.8 F 12/04/18 13:00 Pulse 105 H 12/04/18 15:28 Resp 18 12/04/18 15:28 BP 167/82 12/04/18 13:00 Pulse Ox 96 12/04/18 15:17 Intake & Output 12/03/18 12/04/18 12/04/18 18:59 06:59 18:59 Intake Total 1550 850 Balance 1550 850 Weight 66 kg 68.5 kg Intake: Oral 1550 850 Other: # Voids 2 2 2 # Bowel Movements 0 - Exam GENERAL EXAM: Alert, pleasant, 73-year-old female, 3 L of oxygen with a pulse ox of 92% some dyspnea on exertion. HEAD: Normocephalic/atraumatic. EYES: Normal reaction of pupils, equal size. Conjunctiva pink, sclera white. NOSE: Clear with pink turbinates. THROAT: No erythema or exudates. NECK: No masses, no JVD, no thyroid enlargement, no adenopathy. CHEST: No chest wall deformity. Symmetrical expansion. LUNGS: Equal air entry with bilateral end expiratory wheeze, diminished breath sounds. CVS: Regular rate and rhythm, normal S1 and S2, no gallops, no murmurs, no rubs ABDOMEN: Soft, nontender. No hepatosplenomegaly, normal bowel sounds, no guarding or rigidity. EXTREMITIES: No clubbing, no edema, no cyanosis, 2+ pulses and upper and lower extremities. MUSCULOSKELETAL: Muscle strength and tone normal. SPINE: No scoliosis or deformity SKIN: No rashes CENTRAL NERVOUS SYSTEM: No focal deficits, tone is normal in all 4 extremities. PSYCHIATRIC: Alert and oriented -3. Appropriate affect. Intact judgment and insight. - Labs CBC & Chem 7: 11/29/18 15:35 11/29/18 15:35 Labs: Abnormal Lab Results - Last 24 Hours (Table) 12/03/18 12/03/18 12/04/18 Range/Units 16:54 20:29 07:07 POC Glucose (mg/dL) 355 H 324 H 309 H (75-99) mg/dL 12/04/18 Range/Units 12:10 POC Glucose (mg/dL) 287 H (75-99) mg/dL Microbiology - Last 24 Hours (Table) 11/29/18 15:35 Blood Culture - Preliminary Blood No Growth after 96 hours Assessment and Plan Assessment: Impression: #1. Acute exacerbation of COPD, chest x-ray did not show any acute cardiopulmonary findings #2. Acute on chronic hypoxemic and hypercapnic respiratory failure related to advanced COPD, stage IV, with baseline FEV1 of 28% of predicted, oxygen and prednisone dependent #3. Chronic and ongoing nicotine dependence, currently down to 2 cigarettes a day #4. Hypertension #5. Osteoarthritis #6. Parathyroidism #7. Anxiety Plan The patient was seen and evaluated by Dr. Sears. Not quite back to her baseline. Continue with the current treatment plan. Increase her activity as tolerated. We'll continue to follow. I, the cosigning physician, performed a history & physical examination of the patient. Lungs sounds bilateral end expiratory wheeze, diminished. Maintaining good O2 saturations in the 90s on 3 L/m per nasal cannula. I discussed the assessment and plan of care with my nurse practitioner, Esmer Whalen. I attest to the above note as dictated by her.
[2018-12-04] MEDS: ALPRAZolam 0.25 MG TAB PO PRN (17:01)
[2018-12-04 17:11] LABS: Glucose,Whole Blood 295 mg/dL (75-99)
[2018-12-04 20:24] LABS: Glucose,Whole Blood 360 mg/dL (75-99)
[2018-12-05] MEDS: ALPRAZolam 0.25 MG TAB PO PRN ×2 (00:01→09:11)
[2018-12-05] MEDS: methylPREDNISolone SOD SUCCI 125 MG/2 ML VIAL IV SCH ×4 (00:01→17:07)
[2018-12-05] MEDS: LEVOTHYROXINE 75 MCG TAB PO SCH (05:10)
[2018-12-05] MEDS: BUDESONIDE 1 MG/2 ML NEBU INHALATION SCH (07:11)
[2018-12-05] MEDS: FORMOTEROL FUMARATE 20 MCG/2 ML NEBU INHALATION SCH (07:11)
[2018-12-05] MEDS: IPRATROPIUM-ALBUTEROL 3 ML NEB INHALATION SCH ×3 (07:11→16:54)
[2018-12-05 07:17] LABS: Glucose,Whole Blood 286 mg/dL (75-99)
[2018-12-05] MEDS: INSULIN ASPART (NovoLOG) 100 UNIT/ML VIAL SQ SCH ×3 (08:25→17:07)
[2018-12-05] MEDS: DILTIAZEM ORAL 30 MG TAB PO SCH (08:25)
[2018-12-05] MEDS: LISINOPRIL 20 MG TAB PO SCH (08:25)
[2018-12-05] MEDS: ENOXAPARIN 40 MG/0.4 ML SYRINGE SQ SCH (08:25)
[2018-12-05] MEDS: FAMOTIDINE 20 MG TAB PO SCH (08:25)
[2018-12-05] MEDS: DOXYCYCLINE 100 MG CAP PO SCH (08:26)
[2018-12-05] MEDS: ACETAMINOPHEN TAB 325 MG TAB PO PRN (08:27)
[2018-12-05 11:35] LABS: Glucose,Whole Blood 252 mg/dL (75-99)
[2018-12-05 13:58] VITALS: BP 144/84; TEMP 98.5
--- NOTE | 2018-12-05 16:04 | P.PN ---
Subjective Progress Note Date: 12/05/18 Principal diagnosis: Acute exacerbation of advanced chronic obstructive pulmonary disease. This is 73-year-old white female patient with past medical history of advanced oxygen-dependent COPD with a baseline FEV1 of 28% of predicted, chronic and ongoing nicotine dependence, patient is currently down to 2 cigarettes a day, hypertension, osteoarthritis, hypothyroidism, anxiety, who presented to the hospital on 11/29/2018 with complaints of difficulty breathing over the last 3 weeks. Patient has been treated with Z-Marc, patient completed it, and it did seem to help for a brief period of time however her symptoms recurred, and patient feels increasingly more short of breath. She is coughing up a lot of yellow sputum. Denied any fever or chills, denied any chest pain, denied any palpitations. No nausea vomiting or diarrhea. No headache, lightheadedness or dizziness. No lower extremity swelling. Patient is supposed to be taken on Symbicort, but she has been having difficulty affording her medications, and it costs her over $300 out of pocket. He is on Medicare and his [facility] [employer] for supplemental coverage, which will cover nebulized Pulmicort and Pe rforomist. She does take maintenance prednisone dose of 5 mg daily. Chest x- ray completed showing no acute cardiopulmonary process. Low-grade fever on admission, with 99F, 2 sat is 96% on 3 L, hemodynamically patient is stable. Showed white blood cell, 11.5, hemoglobin is 12.7, INR 0.8, sodium is 135, potassium is 4.8, chloride is 93, CO2 is 37, BUN is 20, creatinine 0.65, lactic acid was 1.3, troponin was negative 1. LFTs were within normal limits. Patient was started on nebulized bronchodilators, IV steroids. On 12/01/2018 patient seen in follow-up on medical surgical floor. She is improving, remains on supplemental oxygen, and her pulse ox is ranging 86-93%, still dyspneic and wheezy, particularly with exertion, breathing somewhat easier, afebrile. Her culture showed no growth. On sounds reveal diminished breath sounds, with end expiratory wheezes, she started to bring up some white colored sputum. Has a congested cough. On 12/02/2018 the patient is still being treated for an acute COPD exacerbation. Not much of an improvement since yesterday. Her secretions that are being coughed out are clear but thick. She is on Perforomist and Pulmicort neb last treatment twice a day. She is on DuoNeb nebulized treatments around the clock. She is also on doxycycline and IV Solu-Medrol. We'll continue to follow. The patient is seen today 12/03/2018 in follow-up on the regular medical floor. She is currently awake and alert in no acute distress. She did have an episode of anxiety and respiratory distress briefly last evening. Currently she is calm and comfortable currently. Maintaining good O2 saturations in the mid 90s on 3 L/m per nasal cannula. The cultures reveal no growth. Troponin negative. She remains on DuoNeb inhalations, Pulmicort and Perforomist, IV Solu-Medrol. Antibiotics in the form of doxycycline. The patient is seen today 12/04/2018 in follow-up on the regular medical floor. She is awake and alert in no acute distress. Breathing a bit better today compared to yesterday. Not back to her baseline. Somewhat less bronchospastic a nd wheezy but with minimal activity tolerance. Maintaining O2 saturations in the 90s on 3 L/m per nasal cannula. Blood culture reveals no growth. She remains on DuoNeb inhalations, Pulmicort and Perforomist inhalations, IV Solu- Medrol. Antibiotics in the form of Vibramycin. The patient is seen today 12/05/2018 in follow-up on the regular medical floor. She is currently resting comfortably in bed. Awake and alert in no acute distress. She denies any worsening shortness of breath, cough or congestion. Still some dyspnea on exertion. Back to her baseline as far as her pulmonary status is concerned. She does have severe end-stage COPD with FEV1 value 28% of predicted. Maintaining O2 saturations in the mid 90s on 3 L/m per nasal cannula. Objective - Vital Signs Vital signs: Vital Signs Temp 98.5 F 12/05/18 13:47 Pulse 113 H 12/05/18 13:47 Resp 18 12/05/18 15:42 BP 144/84 12/05/18 13:47 Pulse Ox 95 12/05/18 13:47 Intake & Output 12/04/18 12/05/18 12/05/18 18:59 06:59 18:59 Intake Total 850 Balance 850 Weight 66.1 kg Intake: Oral 850 Other: # Voids 2 3 2 - Exam GENERAL EXAM: Alert, pleasant, 73-year-old female, 3 L of oxygen with a pulse ox of 95% some dyspnea on exertion. HEAD: Normocephalic/atraumatic. EYES: Normal reaction of pupils, equal size. Conjunctiva pink, sclera white. NOSE: Clear with pink turbinates. THROAT: No erythema or exudates. NECK: No masses, no JVD, no thyroid enlargement, no adenopathy. CHEST: No chest wall deformity. Symmetrical expansion. LUNGS: Equal air entry with bilateral end expiratory wheeze, diminished breath sounds. CVS: Regular rate and rhythm, normal S1 and S2, no gallops, no murmurs, no rubs ABDOMEN: Soft, nontender. No hepatosplenomegaly, normal bowel sounds, no guarding or rigidity. EXTREMITIES: No clubbing, no edema, no cyanosis, 2+ pulses and upper and lower extremities. MUSCULOSKELETAL: Muscle strength and tone normal. SPINE: No scoliosis or deformity SKIN: No rashes CENTRAL NERVOUS SYSTEM: No focal deficits, tone is normal in all 4 extremities. PSYCHIATRIC: Alert and oriented -3. Appropriate affect. Intact judgment and insight. - Labs CBC & Chem 7: 11/29/18 15:35 11/29/18 15:35 Labs: Abnormal Lab Results - Last 24 Hours (Table) 12/04/18 12/04/18 12/05/18 Range/Units 17:09 20:23 07:10 POC Glucose (mg/dL) 295 H 360 H 286 H (75-99) mg/dL 12/05/18 Range/Units 11:30 POC Glucose (mg/dL) 252 H (75-99) mg/dL Microbiology - Last 24 Hours (Table) 11/29/18 15:35 Blood Culture - Preliminary Blood No Growth after 120 hours Assessment and Plan Assessment: Impression: #1. Acute exacerbation of COPD, chest x-ray did not show any acute cardiopulmonary findings #2. Acute on chronic hypoxemic and hypercapnic respiratory failure related to advanced COPD, stage IV, with baseline FEV1 of 28% of predicted, oxygen and prednisone dependent #3. Chronic and ongoing nicotine dependence, currently down to 2 cigarettes a day #4. Hypertension #5. Osteoarthritis #6. Parathyroidism #7. Anxiety Plan The patient was seen and evaluated by Dr. Sears. She is cleared for discharge from the pulmonary standpoint. Complete course of antibiotics. Complete prednisone burst and taper. Continue her home pulmonary medications. Follow-up in our office in 1-2 weeks' time. She is encouraged to call sooner with any recurrence of symptoms or other questions or concerns. Her overall prognosis remains quite guarded and poor. I, the cosigning physician, performed a history & physical examination of the patient. Lungs sounds bilateral end expiratory wheeze, diminished. Maintaining good O2 saturations in the 90s on 3 L/m per nasal cannula. I discussed the assessment and plan of care with my nurse practitioner, Esmer Whalen. I attest to the above note as dictated by her.
[2018-12-05 17:04] VITALS: PULSE 105; RESP 18
== END 2018-12-05 18:30 | disposition home or self-care (01) | DRG 190 ==
LOC: EC 14:14 → 4MS4W 18:37 → OBSVTOIN 11-30 14:03
PROVIDERS: ADMIT Internal Medicine; ATTEND Internal Medicine
DX: J44.1 Chronic obstructive pulmonary disease with (acute) exacerbation (principal); J96.21 Acute and chronic respiratory failure with hypoxia; J96.22 Acute and chronic respiratory failure with hypercapnia; E03.9 Hypothyroidism, unspecified; F17.210 Nicotine dependence, cigarettes, uncomplicated; Z71.6 Tobacco abuse counseling; F41.9 Anxiety disorder, unspecified; I11.0 Hypertensive heart disease with heart failure; I50.9 Heart failure, unspecified; M19.90 Unspecified osteoarthritis, unspecified site; Z79.51 Long term (current) use of inhaled steroids; Z79.52 Long term (current) use of systemic steroids; Z79.890 Hormone replacement therapy; Z79.899 Other long term (current) drug therapy; Z80.0 Family history of malignant neoplasm of digestive organs; Z90.710 Acquired absence of both cervix and uterus; Z99.81 Dependence on supplemental oxygen; Z88.1 Allergy status to other antibiotic agents; Z88.0 Allergy status to penicillin; Z98.49 Cataract extraction status, unspecified eye
CPT/HCPCS: 36415; 71046; 80053; 82550; 82553; 83605; 83735; 84484; 85025; 85610; 85730; 87040; 93005; 94640; 94644; 94760; 96374; 99291

== ENCOUNTER 2019-01-13 17:31 | Emergency (ER) | payer MEDICARE, BC ==
--- NOTE | 2019-01-13 18:28 | ED ---
General Adult HPI - General Source: patient Mode of arrival: ambulatory Limitations: no limitations <Orlin Carlin - Last Filed: 01/14/19 13:31> <Nury Castrejon - Last Filed: 01/15/19 12:54> - General Chief complaint: Skin/Abscess/Foreign Body Stated complaint: Rash Time Seen by Provider: 01/13/19 17:44 - History of Present Illness Initial comments: Patient is 73-year-old female presents emergency Department with a rash. Patient reports the rash started 2 days ago in her forearms and has since spread throughout the rest of her body. Patient reports pruritus throughout her whole body. Patient reports taking loratadine which is able to control the pruritus but not the rash. Patient has a history of COPD and is taking a maintenance dose of prednisone. Patient reports the worst part of her rash is located on her back. Patient reports all her vaccinations are up-to-date. Patient reports typically at this time she receives a DuoNeb nebulized treatment at home for COPD. (Orlin Carlin) - Related Data Home Medications Medication Instructions Recorded Confirmed ALPRAZolam [Xanax] 0.25 mg PO TID PRN 11/29/18 11/29/18 Previous Rx's Medication Instructions Recorded Albuterol Sulfate [Proair Hfa] 2 puff INHALATION RT-Q6H PRN #1 12/05/18 hfa.[email or web address] Aspirin 650 mg PO Q48H #30 tab 12/05/18 Budesonide-Formot 160-4.5 Mcg 2 puff INHALATION RT-BID #1 vial 12/05/18 [Symbicort 160-4.5 Mcg Inhaler] Diltiazem Oral [Cardizem*] 30 mg PO BID #60 tab 12/05/18 Doxycycline [Vibramycin] 100 mg PO BID #3 cap 12/05/18 Famotidine [Pepcid] 20 mg PO BID #60 tab 12/05/18 Ipratropium-Albuterol Nebulize 3 ml INHALATION RT-Q4H PRN #1 12/05/18 [Duoneb 0.5 mg-3 mg/3 ml Soln] ampul.neb Levothyroxine Sodium [Synthroid] 150 mcg PO DAILY #30 tablet 12/05/18 Lisinopril [Zestril] 20 mg PO BID #60 tab 12/05/18 predniSONE 5 mg PO DAILY #30 tab 12/05/18 predniSONE 10 mg PO DIRECTED #40 tab 12/05/18 Allergies Allergy/AdvReac Type Severity Reaction Status Date / Time bacitracin Allergy Rash/Hives Verified 01/13/19 17:36 [From Neosporin ([id number])] neomycin Allergy Rash/Hives Verified 01/13/19 17:36 [From Neosporin ([id number])] Penicillins Allergy Rash/Hives Verified 01/13/19 17:36 polymyxin B Allergy Rash/Hives Verified 01/13/19 17:36 [From Neosporin ([id number])] levofloxacin [From Levaquin] AdvReac WEAKNESS Verified 01/13/19 17:36 ELDA/POLY/DEX Allergy Rash/Hives Uncoded 01/13/19 17:36 Review of Systems ROS Other: All systems not noted in ROS Statement are negative. <Orlin Carlin - Last Filed: 01/14/19 13:31> ROS Other: All systems not noted in ROS Statement are negative. <Nury Castrejon - Last Filed: 01/15/19 12:54> ROS Statement: Those systems with pertinent positive or pertinent negative responses have been documented in the HPI. Past Medical History Past Medical History: Chest Pain / Angina, Heart Failure, COPD, Hypertension, Osteoarthritis (OA), Thyroid Disorder Additional Past Medical History / Comment(s): Advanced COPD, chronic hypoxic respiratory failure, former smoker, hypertension, hypothyroidism, skeletal chest wall pain, chronic anxiety ,leg and foot wounds History of Any Multi-Drug Resistant Organisms: None Reported Past Surgical History: Heart Catheterization, Hysterectomy, Tubal Ligation Additional Past Surgical History / Comment(s): cataracts removed Past Anesthesia/Blood Transfusion Reactions: Previous Problems w/ Anesthesia, Postoperative Nausea & Vomiting (PONV) Additional Past Anesthesia/Blood Transfusion Reaction / Comment(s): oxygen was "low" post op, nausea one time Past Psychological History: Anxiety Smoking Status: Current some day smoker Past Alcohol Use History: None Reported, Rare Past Drug Use History: None Reported - Past Family History Mother History Unknown: Yes Family Medical History: Cancer, Thyroid Disorder Additional Family Medical History / Comment(s): Liver Cancer Father History Unknown: Yes Family Medical History: Cancer <Orlin Carlin - Last Filed: 01/14/19 13:31> General Exam Limitations: no limitations General appearance: alert, in no apparent distress Head exam: Present: atraumatic, normocephalic, normal inspection Eye exam: Present: normal appearance, PERRL, EOMI Pupils: Present: normal accommodation ENT exam: Present: normal exam, mucous membranes moist, normal external ear exam Neck exam: Present: normal inspection, full ROM Respiratory exam: Present: wheezes (Bilateral) Cardiovascular Exam: Present: normal rhythm, tachycardia, normal heart sounds Extremities exam: Present: normal inspection, full ROM, other (Ulcer noted on t he medial aspect of the left lower leg) Back exam: Present: normal inspection, full ROM Neurological exam: Present: alert, oriented X3 Psychiatric exam: Present: normal affect, normal mood Skin exam: Present: warm, intact, normal color, rash (Macular rash throughout the whole body. Round lesion resembling a herald patch noted on the abdomen) <Orlin Carlin - Last Filed: 01/14/19 13:31> Course Vital Signs 01/13/19 01/13/19 01/13/19 17:34 20:03 20:12 Temperature 97.5 F L Pulse Rate 113 H 90 92 Respiratory 22 Rate Blood Pressure 120/63 O2 Sat by Pulse 90 L Oximetry 01/13/19 21:46 Temperature 98.0 F Pulse Rate 81 Respiratory 18 Rate Blood Pressure 99/62 O2 Sat by Pulse 98 Oximetry Medical Decision Making - Lab Data Result diagrams: 01/13/19 19:32 01/13/19 19:32 <Orlin Carlin - Last Filed: 01/14/19 13:31> - Lab Data Result diagrams: 01/13/19 19:32 01/13/19 19:32 <Nury Castrejon - Last Filed: 01/15/19 12:54> - Medical Decision Making Patient is 73-year-old female presenting to emergency Department with a rash. Patient received a DuoNeb treatment while in the ED. The rash appears to be a possible viral exanthem or pityriasis rosea. A lesion that appears to be a herald patch noted on the abdomen. The rash most likely self-limiting and will resolve on its own. Patient is already on a maintenance dose of steroids so no additional steroid treatment will be administered. Patient advised to continue using the loratadine to relieve the itching. Patient also reports that she was prescribed and antipruritic cream from [facility] and states that she is going to use it. Patient advised to follow-up with dermatology. Dr. Castrejon also examine the patient and is in agreement with the treatment plan. Strict return parameters were thoroughly discussed the patient was understanding and agreeable. (Orlin Carlin) I, Dr. Nury Castrejon, Personally saw and examined the patient. I have reviewed and agree with the PACKAGING LINE OPERATOR/PA findings, including all diagnostic interpretations and treatment plans as written unless otherwise stated. I was present for the haynes portions of any procedures and the inclusive time noted for any critical care treatment. (Nury Castrejon) - Lab Data Lab Results 01/13/19 01/13/19 01/13/19 Range/Units 19:32 19:32 19:32 WBC 11.0 H (3.8-10.6) k/uL RBC 4.26 (3.80-5.40) m/uL Hgb 12.2 (11.4-16.0) gm/dL Hct 40.0 (34.0-46.0) % MCV 93.9 (80.0-100.0) fL MCH 28.7 (25.0-35.0) pg MCHC 30.6 L (31.0-37.0) g/dL RDW 13.9 (11.5-15.5) % Plt Count 299 (150-450) k/uL Hypochromasia Slight PT 9.3 (9.0-12.0) sec INR 0.8 (<1.2) APTT 20.0 L (22.0-30.0) sec Sodium 132 L (137-145) mmol/L Potassium 5.5 H (3.5-5.1) mmol/L Chloride 89 L (98-107) mmol/L Carbon Dioxide 38 H (22-30) mmol/L Anion Gap 5 mmol/L BUN 18 H (7-17) mg/dL Creatinine 0.65 (0.52-1.04) mg/dL Est GFR (CKD-EPI)AfAm >90 (>60 ml/min/1.73 sqM) Est GFR (CKD-EPI)NonAf 87 (>60 ml/min/1.73 sqM) Glucose 365 H (74-99) mg/dL Calcium 9.7 (8.4-10.2) mg/dL Total Bilirubin 0.2 (0.2-1.3) mg/dL AST 18 (14-36) U/L ALT 24 (9-52) U/L Alkaline Phosphatase 84 (38-126) U/L Total Protein 5.9 L (6.3-8.2) g/dL Albumin 3.5 (3.5-5.0) g/dL Disposition Is patient prescribed a controlled substance at d/c from ED?: No Time of Disposition: 21:34 <Orlin Carlin - Last Filed: 01/14/19 13:31> <Nury Castrejon - Last Filed: 01/15/19 12:54> Clinical Impression: Viral exanthem, unspecified Disposition: HOME SELF-CARE Condition: Stable Instructions (If sedation given, give patient instructions): Viral Exanthem (ED) Additional Instructions: Please follow up with [facility]. Please use ALLERGY pill and cream for the itching. Please return to emergency department if symptoms worsen. Referrals: Chris Sears MD [Primary Care Provider] - 1-2 days
[2019-01-13] MEDS ORDERED: IPRATROPIUM-ALBUTEROL 3 ML NEB INHALATION STA (18:41)
[2019-01-13 19:54] LABS: HGB 12.2 gm/dL (11.4-16.0); Hypochromasia Slight; MCH 28.7 pg (25.0-35.0); MCHC 30.6 g/dL (31.0-37.0); MCV 93.9 fL (80.0-100.0); Platelet Count 299 k/uL (150-450); RBC 4.26 m/uL (3.80-5.40); RDW 13.9 % (11.5-15.5)
[2019-01-13 20:05] LABS: INR 0.8 (<1.2); Prothrombin Time 9.3 sec (9.0-12.0)
[2019-01-13 20:20] LABS: ALT 24 U/L (9-52); AST 18 U/L (14-36); African American GFR (CKD) >90 (>60 ml/min/1.73 sqM); Albumin 3.5 g/dL (3.5-5.0); Alkaline Phosphatase 84 U/L (38-126); Blood Urea Nitrogen 18 mg/dL (7-17); Calcium 9.7 mg/dL (8.4-10.2); Chloride 89 mmol/L (98-107); Glucose 365 mg/dL (74-99); Potassium 5.5 mmol/L (3.5-5.1); Sodium 132 mmol/L (137-145); Total Bilirubin 0.2 mg/dL (0.2-1.3); Total Protein 5.9 g/dL (6.3-8.2)
[2019-01-13 20:26] LABS: Anion Gap 5 mmol/L
[2019-01-13 20:35] LABS: Carbon Dioxide 38 mmol/L (22-30)
[2019-01-13 21:47] VITALS: BP 99/62; PULSE 81; RESP 18; TEMP 98
== END 2019-01-13 21:47 | disposition home or self-care (01) ==
LOC: EC 17:31
DX: B09 Unspecified viral infection characterized by skin and mucous membrane lesions (principal); I11.0 Hypertensive heart disease with heart failure; I50.9 Heart failure, unspecified; F17.200 Nicotine dependence, unspecified, uncomplicated; Z88.1 Allergy status to other antibiotic agents; Z88.0 Allergy status to penicillin; Z88.8 Allergy status to other drugs, medicaments and biological substances; Z95.818 Presence of other cardiac implants and grafts
CPT/HCPCS: 36415; 80053; 85027; 85610; 85730; 94640; 99283

== ENCOUNTER 2020-09-25 14:43 | Emergency (ER) | payer MEDICARE, BC ==
[2020-09-25] MEDS ORDERED: DIPH,PERTUS(ACELL)TETVAC-LF 0.5 ML VIAL IM ONE (15:44)
[2020-09-25] MEDS ORDERED: LIDOCAINE 1%-EPI 1:100,000 20 ML VIAL SQ STA (15:45)
[2020-09-25] MEDS ORDERED: TOPICAL SKIN ADHESIVE 1 EACH AMP TOPICAL ONE ×2 (15:45→17:09)
--- NOTE | 2020-09-25 16:47 | XR ---
EXAMINATION TYPE: XR chest 2V DATE OF EXAM: 09/25/2020 COMPARISON: 11/19/2018 HISTORY: 75-year-old female cough and pain after fall TECHNIQUE: AP upright and lateral views FINDINGS: Patient is slightly rotated towards the right. Heart normal size. Aorta and pulmonary vasculature wit hin normal limits. There is hyperinflation without consolidation, pneumothorax, or pleural effusion. IMPRESSION: COPD. No acute process seen.
--- NOTE | 2020-09-25 16:51 | XR ---
EXAMINATION TYPE: XR elbow complete 3 views LT, XR wrist complete 3 views LT, XR hand complete 3 views LT DATE OF EXAM: 09/25/2020 COMPARISON: NONE HISTORY: 75-year-old female pain after fall FINDINGS: Elbow: Mild spurring at the lateral epicondyle and coronoid process. Posterior olecranon soft tissue swellin g. Obliquity on the lateral view limits adequate visualization of the posterior fat-pad of the elbow. No displaced fracture is seen. Generalized muscle atrophy. Wrist: Moderate to severe degenerative change at the first CMC joint and triscaphe joint positive ulnar vari ance secondary to impacted transverse radial metaphyseal fracture with dorsal angulation. Soft tissue swelling. Hand: No osteoarthritic change throughout the DIP joints of the fingers, greatest in the index finger. Oste openia. No additional acute fracture, subluxation, dislocation seen. IMPRESSION: 1. Elbow: Posterior olecranon soft tissue swelling could represent contusion or olecranon bursitis in cluding posttraumatic hemorrhagic bursitis. Obliquity on the lateral view limits visualization of the posterior fat-pad of the elbow. No displaced fracture seen. 2. Wrist: Mildly impacted and dorsally angulated Colles' fracture distal radius. 3. Hand: Moderate to severe OA at the basal joint of the thumb and triscaphe joint. Additional osteoa rthritic change at the DIP joints of the fingers.
--- NOTE | 2020-09-25 16:56 | XR ---
EXAMINATION TYPE: XR knee complete 3 views, bilateral XR tibia fibula 2 views, LT DATE OF EXAM: 09/25/2020 Comparison: None Clinical History: 75-year-old female fall, pain Findings: Right knee: Small suprapatellar joint effusion. Extensor mechanism appears intact. Some subchondral sclerosis med ial femoral condyle suggests underlying degenerative change of the medial compartment. No acute fract ure, subluxation, dislocation seen. Left knee and tibia/fibula: Mild thickening distal quadriceps insertion and possibly at the origin of the patellar tendon as well . No significant joint effusion. Sclerosis of the medial femoral condyle could reflect underlying deg enerative change in the medial compartment. No acute fracture, subluxation, or dislocation. Generaliz ed soft tissue swelling of the leg. No acute fracture of the tibia or fibula. Osteopenia. Ankle joint grossly intact. IMPRESSION: 1. Right knee: Small suprapatellar joint effusion. Osteopenia. No acute osseous abnormality seen. Mil d degenerative changes medial compartment. 2. Left knee: Mild thickening of the quadriceps insertion and patellar tendon origin suggesting tendi nopathy or contusion. Mild degenerative change medial compartment. No acute osseous abnormality seen. 3. Left tibia/fibula: Generalized soft tissue swelling. Osteopenia. No acute fracture seen.
[2020-09-25] MEDS ORDERED: IPRATROPIUM-ALBUTEROL 3 ML NEB INHALATION STA (18:39)
[2020-09-25 19:00] VITALS: BP 140/80; RESP 18; TEMP 98.2
--- NOTE | 2020-09-25 19:16 | ED ---
General Adult HPI - General Chief complaint: Wound/Laceration Stated complaint: L leg laceration Time Seen by Provider: 09/25/20 14:55 Source: patient, family Mode of arrival: wheelchair Limitations: no limitations - History of Present Illness Initial comments: 75-year-old female presents emergency Department after she sustained a mechanical fall at home. States she was attempting to leave her house when she fell sustaining injury to her left wrist. Patient also sustained multiple skin tears to the left valencia. She denies hitting her head. Patient is not on blood thinners. There was no loss of consciousness. She denies syncope. Patient presents reporting pain in her left wrist and left valencia. She denies any chest or pelvic pain. No neck pain or back pain. She has a history of COPD and does wear 4 L of oxygen all times. Patient denies any worsening short of breath at this time. No other alleviating, precipitating or modifying factors - Related Data Home Medications Medication Instructions Recorded Confirmed Albuterol Sulfate [Proair Hfa] 2 puff INHALATION RT-QID PRN 09/25/20 09/25/20 Aspirin 325 mg PO Q48H 09/25/20 09/25/20 Diltiazem Oral [Cardizem Oral] 60 mg PO BID 09/25/20 09/25/20 Multivitamins, Thera [Multivitamin 1 tab PO DAILY 09/25/20 09/25/20 (formulary)] Pyridoxine HCl (Vitamin B6) 100 mg PO DAILY 09/25/20 09/25/20 [Vitamin B-6] Vitamin D3(Unknown) 1 tab PO DAILY 09/25/20 09/25/20 predniSONE 5 mg PO SUTUTHSA 09/25/20 09/25/20 predniSONE 10 mg PO MOWEFR 09/25/20 09/25/20 Previous Rx's Medication Instructions Recorded Budesonide-Formot 160-4.5 Mcg 2 puff INHALATION RT-BID #1 vial 12/05/18 [Symbicort 160-4.5 Mcg Inhaler] Levothyroxine Sodium [Synthroid] 150 mcg PO DAILY #30 tablet 12/05/18 lisinopriL [Zestril] 20 mg PO BID #60 tab 12/05/18 Allergies Allergy/AdvReac Type Severity Reaction Status Date / Time bacitracin Allergy Rash/Hives Verified 09/25/20 17:35 [From Neosporin ([id number])] neomycin Allergy Rash/Hives Verified 09/25/20 17:35 [From Neosporin ([id number])] Penicillins Allergy Rash/Hives Verified 09/25/20 17:35 polymyxin B Allergy Rash/Hives Verified 09/25/20 17:35 [From Neosporin ([id number])] trimethoprim [From Polytrim] Allergy Rash/Hives Verified 09/25/20 17:35 levofloxacin [From Levaquin] AdvReac WEAKNESS Verified 09/25/20 17:35 ELDA/POLY/DEX Allergy Rash/Hives Uncoded 09/25/20 17:35 Review of Systems ROS Statement: Those systems with pertinent positive or pertinent negative responses have been documented in the HPI. ROS Other: All systems not noted in ROS Statement are negative. Past Medical History Past Medical History: Chest Pain / Angina, Heart Failure, COPD, Hypertension, Osteoarthritis (OA), Thyroid Disorder Additional Past Medical History / Comment(s): Advanced COPD, chronic hypoxic respiratory failure, former smoker, hypertension, hypothyroidism, skeletal chest wall pain, chronic anxiety ,leg and foot wounds History of Any Multi-Drug Resistant Organisms: None Reported Past Surgical History: Heart Catheterization, Hysterectomy, Tubal Ligation Additional Past Surgical History / Comment(s): cataracts removed Past Anesthesia/Blood Transfusion Reactions: Previous Problems w/ Anesthesia, Postoperative Nausea & Vomiting (PONV) Additional Past Anesthesia/Blood Transfusion Reaction / Comment(s): oxygen was "low" post op, nausea one time Past Psychological History: Anxiety Smoking Status: Current some day smoker Past Alcohol Use History: None Reported, Rare Past Drug Use History: None Reported - Past Family History Mother History Unknown: Yes Family Medical History: Cancer, Thyroid Disorder Additional Family Medical History / Comment(s): Liver Cancer Father History Unknown: Yes Family Medical History: Cancer General Exam Limitations: no limitations General appearance: alert, in no apparent distress Head exam: Present: atraumatic, normocephalic, normal inspection Eye exam: Present: normal appearance, PERRL, EOMI. Absent: scleral icterus, conjunctival injection, periorbital swelling ENT exam: Present: normal exam, mucous membranes moist Neck exam: Present: normal inspection. Absent: tenderness, meningismus, lymphadenopathy Respiratory exam: Present: decreased breath sounds. Absent: respiratory distress Cardiovascular Exam: Present: regular rate, normal rhythm, normal heart sounds. Absent: systolic murmur, diastolic murmur, rubs, gallop, clicks GI/Abdominal exam: Present: soft, normal bowel sounds. Absent: distended, tenderness, guarding, rebound, rigid Extremities exam: Present: other (deformity left wrist with accompanying swelling. 2+ radial and ulnar pulses. Intact sensation. No wrist drop. Mild posterior olcranon pain with chronically appearing enlarged busa. Multiple skin tears - ranging from 1.5 cm to 13 x 8 cm. Largest left valencia. No deep structure involvement. ) Back exam: Present: normal inspection Neurological exam: Present: alert, oriented X3, CN II-XII intact Psychiatric exam: Present: normal affect, normal mood Course Vital Signs 09/25/20 09/25/20 09/25/20 14:52 16:44 18:59 Temperature 98.3 F 98.2 F Pulse Rate 78 100 Respiratory 16 18 Rate Blood Pressure 136/56 140/80 O2 Sat by Pulse 83 L 100 100 Oximetry 09/25/20 09/25/20 19:14 19:19 Temperature Pulse Rate 108 H 110 H Respiratory Rate Blood Pressure O2 Sat by Pulse Oximetry Medical Decision Making - Medical Decision Making Upon arrival patient is placed into room 18. Thorough history and physical exam was performed. The patient is sent for multiple imaging modalities. Chest x- ray is performed due to the patient's original hypoxia noted on her vitals. Chest x-ray demonstrates no acute process at this time. She also received x- rays of the left elbow, hand and wrist. X-rays were performed of the left tib- fib and knee. I will x-ray demonstrates posterior olecranon soft tissue swelling which could represent contusion or bursitis. There is a mildly impacted and dorsally angulated Colles' fracture. The x-ray demonstrates small suprapatellar joint effusion. Mild thickening of the quadriceps insertion and patellar tendon origin. Patient continues to have full normal range of motion. Laceration repair was performed by the nurse practitioner. The patient will be given the wound care clinic for follow-up to ensure that her wounds are healing appropriately. She is to have her sutures removed within 10 days. The patient is placed in a sugar tong splint because of her distal radius fracture. Reduction was performed and the patient is splinted. She is to follow-up with the orthopedic office for further management of the left wrist fracture. She is offered medications for pain control. Patient states that she will take Tylenol and Motrin at home and is refusing anything stronger. Patient will be discharged home at this time. She does maintain 100% saturation on her 4 L of oxygen. She is to follow up within 2-4 days with her primary care doctor to ensure that her wounds are healing properly. Return to the emergency room for any new or worsening symptoms. Patient was discharged home in stable condition Disposition Clinical Impression: Fall, Skin tear, Distal radius fracture, left Disposition: HOME SELF-CARE Condition: Stable Instructions (If sedation given, give patient instructions): Wrist Fracture in Adults (ED) Additional Instructions: Please call and make an appointment with the orthopedic doctor tomorrow. Alternate taking 650 mg of Tylenol and 400 mg of Motrin every 4 hours. Return to the ED for any new or worsening symptoms. Is patient prescribed a controlled substance at d/c from ED?: No Referrals: Chris Sears MD [Primary Care Provider] - 1-2 days Uvaldo Aj MD [STAFF PHYSICIAN] - 1-2 days [facility] [NON-STAFF] - 1-2 days Time of Disposition: 19:16
--- NOTE | 2020-09-25 19:16 | ED ---
Wound/Laceration HPI - General Source: patient, family, RN notes reviewed Mode of arrival: wheelchair Limitations: no limitations - History of Present Illness Extremity Location: Left: Wrist, Knee, Lower Leg, Right: Knee <Henry Warren - Last Filed: 09/25/20 22:47> <VincentGalilea Kyra - Last Filed: 09/26/20 11:09> - General Chief Complaint: Wound/Laceration Stated Complaint: L leg laceration - Related Data Home Medications Medication Instructions Recorded Confirmed Albuterol Sulfate [Proair Hfa] 2 puff INHALATION RT-QID PRN 09/25/20 09/25/20 Aspirin 325 mg PO Q48H 09/25/20 09/25/20 Diltiazem Oral [Cardizem Oral] 60 mg PO BID 09/25/20 09/25/20 Multivitamins, Thera [Multivitamin 1 tab PO DAILY 09/25/20 09/25/20 (formulary)] Pyridoxine HCl (Vitamin B6) 100 mg PO DAILY 09/25/20 09/25/20 [Vitamin B-6] Vitamin D3(Unknown) 1 tab PO DAILY 09/25/20 09/25/20 predniSONE 5 mg PO SUTUTHSA 09/25/20 09/25/20 predniSONE 10 mg PO MOWEFR 09/25/20 09/25/20 Previous Rx's Medication Instructions Recorded Budesonide-Formot 160-4.5 Mcg 2 puff INHALATION RT-BID #1 vial 12/05/18 [Symbicort 160-4.5 Mcg Inhaler] Levothyroxine Sodium [Synthroid] 150 mcg PO DAILY #30 tablet 12/05/18 lisinopriL [Zestril] 20 mg PO BID #60 tab 12/05/18 Allergies Allergy/AdvReac Type Severity Reaction Status Date / Time bacitracin Allergy Rash/Hives Verified 09/25/20 17:35 [From Neosporin ([id number])] neomycin Allergy Rash/Hives Verified 09/25/20 17:35 [From Neosporin ([id number])] Penicillins Allergy Rash/Hives Verified 09/25/20 17:35 polymyxin B Allergy Rash/Hives Verified 09/25/20 17:35 [From Neosporin ([id number])] trimethoprim [From Polytrim] Allergy Rash/Hives Verified 09/25/20 17:35 levofloxacin [From Levaquin] AdvReac WEAKNESS Verified 09/25/20 17:35 ELDA/POLY/DEX Allergy Rash/Hives Uncoded 09/25/20 17:35 Review of Systems ROS Other: All systems not noted in ROS Statement are negative. <Henry Warren - Last Filed: 09/25/20 22:47> ROS Other: All systems not noted in ROS Statement are negative. <Galilea Kaur - Last Filed: 09/26/20 11:09> ROS Statement: Those systems with pertinent positive or pertinent negative responses have been documented in the HPI. Past Medical History Past Medical History: Chest Pain / Angina, Heart Failure, COPD, Hypertension, Osteoarthritis (OA), Thyroid Disorder Additional Past Medical History / Comment(s): Advanced COPD, chronic hypoxic re spiratory failure, former smoker, hypertension, hypothyroidism, skeletal chest wall pain, chronic anxiety ,leg and foot wounds History of Any Multi-Drug Resistant Organisms: None Reported Past Surgical History: Heart Catheterization, Hysterectomy, Tubal Ligation Additional Past Surgical History / Comment(s): cataracts removed Past Anesthesia/Blood Transfusion Reactions: Previous Problems w/ Anesthesia, Postoperative Nausea & Vomiting (PONV) Additional Past Anesthesia/Blood Transfusion Reaction / Comment(s): oxygen was "low" post op, nausea one time Past Psychological History: Anxiety Smoking Status: Current some day smoker Past Alcohol Use History: None Reported, Rare Past Drug Use History: None Reported - Past Family History Mother History Unknown: Yes Family Medical History: Cancer, Thyroid Disorder Additional Family Medical History / Comment(s): Liver Cancer Father History Unknown: Yes Family Medical History: Cancer <Henry Warren - Last Filed: 09/25/20 22:47> General Exam Limitations: no limitations <Henry Warren - Last Filed: 09/25/20 22:47> Course Vital Signs 09/25/20 09/25/20 09/25/20 14:52 16:44 18:59 Temperature 98.3 F 98.2 F Pulse Rate 78 100 Respiratory 16 18 Rate Blood Pressure 136/56 140/80 O2 Sat by Pulse 83 L 100 100 Oximetry 09/25/20 09/25/20 19:14 19:19 Temperature Pulse Rate 108 H 110 H Respiratory Rate Blood Pressure O2 Sat by Pulse Oximetry Procedures - Laceration Laceration #1 Site: lower extremity Description: flap Pre-repair: irrigated extensively Type of Sutures: other (dermal glue ) Patient Tolerated Procedure: no complications Laceration #2 Site: upper extremity Size (cm): 2 Description: linear Type of Sutures: other (dermal glue) Patient Tolerated Procedure: no complications Laceration #3 Indication: laceration Site: lower extremity Size (cm): 6 Description: linear Depth: simple, single layer Anesthetic Used: lidocaine 1% Amount (mls): 3 Pre-repair: irrigated extensively Type of Sutures: nylon Size of Sutures: 4-0 Number of Sutures: 5 Technique: simple, interrupted Patient Tolerated Procedure: no complications Laceration #5 Site: lower extremity Description: avulsion, irregular Depth: simple, single layer (skin tear, avulsion) Amount (mls): 5 Pre-repair: irrigated extensively Size of Sutures: 4-0 Number of Sutures: 11 Technique: simple, interrupted Patient Tolerated Procedure: no complications <Henry Warren - Last Filed: 09/25/20 22:47> Medical Decision Making <Galilea Kaur - Last Filed: 09/26/20 11:09> - Medical Decision Making This procedure note accompanies a previous note by myself which describes the encounter of the patient. (Galilea Kaur) Disposition Is patient prescribed a controlled substance at d/c from ED?: No <Henry Warren - Last Filed: 09/25/20 22:47> <Galilea Kaur - Last Filed: 09/26/20 11:09> Clinical Impression: Fall, Skin tear, Distal radius fracture, left Disposition: HOME SELF-CARE Condition: Stable Instructions (If sedation given, give patient instructions): Wrist Fracture in Adults (ED) Additional Instructions: Please call and make an appointment with the orthopedic doctor tomorrow. Alternate taking 650 mg of Tylenol and 400 mg of Motrin every 4 hours. Return to the ED for any new or worsening symptoms. Referrals: Chris Sears MD [Primary Care Provider] - 1-2 days [facility] [NON-STAFF] - 1-2 days Uvaldo Aj MD [STAFF PHYSICIAN] - 1-2 days
[2020-09-25 19:20] VITALS: PULSE 110
== END 2020-09-25 19:45 | disposition home or self-care (01) ==
LOC: EC 14:43
DX: S81.812A Laceration without foreign body, left lower leg, initial encounter (principal); S52.532A Colles' fracture of left radius, initial encounter for closed fracture; R09.02 Hypoxemia; M19.042 Primary osteoarthritis, left hand; J44.9 Chronic obstructive pulmonary disease, unspecified; I11.0 Hypertensive heart disease with heart failure; I50.9 Heart failure, unspecified; I20.9 Angina pectoris, unspecified; F17.200 Nicotine dependence, unspecified, uncomplicated; Z79.899 Other long term (current) drug therapy; Z79.82 Long term (current) use of aspirin; Z79.52 Long term (current) use of systemic steroids; Z88.1 Allergy status to other antibiotic agents; Z88.0 Allergy status to penicillin; Z88.8 Allergy status to other drugs, medicaments and biological substances; Z23 Encounter for immunization; W19.XXXA Unspecified fall, initial encounter; Y92.009 Unspecified place in unspecified non-institutional (private) residence as the place of occurrence of the external cause
CPT/HCPCS: 12004; 25605; 71046; 90471; 90715; 94640; 99283

== ENCOUNTER 2020-10-23 06:24 | Inpatient (IN) | payer MEDICARE, BC ==
[2020-10-23] MEDS ORDERED: SODIUM CHLORIDE 0.9% 1,000 ML IV STA ×2 (06:27)
[2020-10-23] MEDS ORDERED: MORPHINE SULFATE 2 MG/ML SYRINGE IVP STA (06:27)
[2020-10-23] MEDS ORDERED: SODIUM CHLORIDE 0.9% 500 ML 500 ML IV STA (06:27)
[2020-10-23 06:35] LABS: Glucose,Whole Blood 293 mg/dL (75-99)
--- NOTE | 2020-10-23 06:42 | XR ---
EXAMINATION TYPE: XR chest 1V portable DATE OF EXAM: 10/23/2020 COMPARISON: Chest x-ray September 25, 2020 HISTORY: Altered mental status and shortness of breath TECHNIQUE: Single frontal view of the chest is obtained. FINDINGS: There is chronic parenchymal changes without suspicious focal air space opacity, pleural e ffusion, or pneumothorax seen. The cardiac silhouette size is stable and within normal limits with a therosclerotic change aortic knob. The osseous structures are demineralized. IMPRESSION: Chronic changes without acute pulmonary process.
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
[2020-10-23] MEDS ORDERED: IPRATROPIUM-ALBUTEROL 3 ML NEB INHALATION PRN (06:48)
[2020-10-23] MEDS ORDERED: methylPREDNISolone SOD SUCCI 125 MG/2 ML VIAL IV STA (06:48)
[2020-10-23 06:55] LABS: Basophils # (A) 0.1 k/uL (0-0.2); Basophils % (A) 1 %; Eosinophils # (A) 0.1 k/uL (0-0.7); Eosinophils % (A) 1 %; HCT 38.9 % (34.0-46.0); HGB 12.2 gm/dL (11.4-16.0); Hypochromasia Moderate; Lymphocytes # (A) 0.7 k/uL (1.0-4.8); Lymphocytes % (A) 7 %; MCH 29.6 pg (25.0-35.0); MCHC 31.3 g/dL (31.0-37.0); MCV 94.6 fL (80.0-100.0); Mean Platelet Volume 7.2; Monocytes # (A) 0.6 k/uL (0-1.0); Monocytes % (A) 5 %; Neutrophils # (A) 8.9 k/uL (1.3-7.7); Neutrophils % (A) 84 %; Platelet Count 316 k/uL (150-450); RBC 4.11 m/uL (3.80-5.40); RDW 13.4 % (11.5-15.5); WBC 10.7 k/uL (3.8-10.6)
[2020-10-23 06:59] LABS: VBG PH 7.19 (7.31-7.41)
[2020-10-23 07:18] LABS: Appearance,Urine Clear (Clear); Bilirubin,Urine Negative (Negative); Blood,Urine Negative (Negative); Color,Urine Yellow; Glucose,Urine (UA) 4+ (Negative); Ketones,Urine Negative (Negative); Leukocyte Esterase,Urine Negative (Negative); Nitrite,Urine Negative (Negative); PH, Urine 5.5 (5.0-8.0); Protein,Urine Trace (Negative); Specific Gravity,Urine 1.019 (1.001-1.035); Urobilinogen,Urine <2.0 mg/dL (<2.0)
[2020-10-23 07:20] LABS: INR 0.8 (<1.2); Prothrombin Time 9.4 sec (9.0-12.0)
[2020-10-23 07:26] LABS: ALT 17 U/L (4-34); AST 29 U/L (14-36); African American GFR (CKD) >90 (>60 ml/min/1.73 sqM); Albumin 3.7 g/dL (3.5-5.0); Alkaline Phosphatase 115 U/L (38-126); Anion Gap 4 mmol/L; Blood Urea Nitrogen 33 mg/dL (7-17); C Reactive Protein 1.2 mg/dL (<1.0); Calcium 9.7 mg/dL (8.4-10.2); Chloride 84 mmol/L (98-107); Creatine Kinase 74 U/L (30-135); Glucose 294 mg/dL (74-99); LDH 539 U/L (313-618); Non-African American GFR(CKD) >90 (>60 ml/min/1.73 sqM); Phosphorus 4.7 mg/dL (2.5-4.5); Potassium 5.3 mmol/L (3.5-5.1); Sodium 128 mmol/L (137-145); Total Bilirubin 0.4 mg/dL (0.2-1.3); Total Protein 6.2 g/dL (6.3-8.2)
[2020-10-23 07:31] LABS: Carbon Dioxide 40 mmol/L (22-30)
[2020-10-23 07:39] LABS: Partial Thromboplastin Time 19.9 sec (22.0-30.0)
[2020-10-23] MEDS: IPRATROPIUM-ALBUTEROL 3 ML NEB INHALATION SCH ×4 (07:39→19:46)
[2020-10-23] MEDS ORDERED: KETOROLAC 0.5% OPHTH DROPS 5 ML BTL BOTH EYES PRN (08:53)
[2020-10-23] MEDS ORDERED: methylPREDNISolone SOD SUCCI 40 MG/ML 1 ML VIAL IV SCH (09:00)
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
[2020-10-23] MEDS: NICOTINE 21MG/24HR PATCH TRANSDERM SCH (09:46)
[2020-10-23] MEDS: ENOXAPARIN 40 MG/0.4 ML SYRINGE SQ SCH (09:46)
[2020-10-23] MEDS: LORATADINE 10 MG TAB PO SCH (09:47)
[2020-10-23] MEDS: LEVOTHYROXINE 75 MCG TAB PO SCH (09:47)
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
[2020-10-23] MEDS ORDERED: methylPREDNISolone SOD SUCCI 125 MG/2 ML VIAL IV SCH (12:00)
[2020-10-23 13:28] LABS: ABG Base Excess 9.3 mmol/L; ABG HCO3 37 mmol/L (21-25); ABG Oxygen Saturation 96.3 % (94-97); ABG PH 7.23 (7.35-7.45); ABG PO2 87 mmHg (83-108); ABG TCO2 40 mmol/L (19-24); Allen Test Performed? Yes
[2020-10-23 13:39] LABS: ABG PCO2 89 mmHg (35-45)
[2020-10-23 17:02] LABS: Glucose,Whole Blood 208 mg/dL (75-99)
[2020-10-23] MEDS: SYMBICORT 160-4.5 MCG INHALER INHALATION SCH (19:46)
[2020-10-23 19:59] LABS: Glucose,Whole Blood 184 mg/dL (75-99)
[2020-10-23] MEDS ORDERED: SALMETEROL INHALATION SCH (20:00)
[2020-10-23] MEDS ORDERED: FLUTICASONE INHALATION SCH (20:00)
[2020-10-23] MEDS ORDERED: LORazepam 2 MG/ML INJ IV STA (20:18)
[2020-10-23] MEDS: methylPREDNISolone SOD SUCCI 40 MG/ML 1 ML VIAL IV SCH (20:27)
[2020-10-23] MEDS: SODIUM CHLORIDE 0.9% 1,000 ML IV SCH (20:28)
[2020-10-24] MEDS: SODIUM CHLORIDE 0.9% 1,000 ML IV SCH ×4 (05:31→23:53)
[2020-10-24 06:02] LABS: Glucose,Whole Blood 154 mg/dL (75-99)
[2020-10-24 07:55] LABS: HCT 33.5 % (34.0-46.0); HGB 10.5 gm/dL (11.4-16.0); Hypochromasia Moderate; MCH 29.6 pg (25.0-35.0); MCHC 31.4 g/dL (31.0-37.0); MCV 94.5 fL (80.0-100.0); Mean Platelet Volume 7.3; Platelet Count 262 k/uL (150-450); RBC 3.55 m/uL (3.80-5.40); RDW 13.5 % (11.5-15.5); WBC 9.4 k/uL (3.8-10.6)
[2020-10-24 08:14] LABS: African American GFR (CKD) >90 (>60 ml/min/1.73 sqM); Anion Gap -1 mmol/L; Blood Urea Nitrogen 25 mg/dL (7-17); Calcium 8.8 mg/dL (8.4-10.2); Carbon Dioxide 38 mmol/L (22-30); Chloride 95 mmol/L (98-107); Glucose 152 mg/dL (74-99); Non-African American GFR(CKD) >90 (>60 ml/min/1.73 sqM); Potassium 5.1 mmol/L (3.5-5.1); Sodium 132 mmol/L (137-145)
[2020-10-24] MEDS ORDERED: LORazepam 2 MG/ML INJ IV PRN (08:15)
[2020-10-24] MEDS: IPRATROPIUM-ALBUTEROL 3 ML NEB INHALATION SCH ×4 (08:59→18:58)
[2020-10-24] MEDS: SYMBICORT 160-4.5 MCG INHALER INHALATION SCH ×2 (08:59→18:58)
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
[2020-10-24] MEDS: NICOTINE 21MG/24HR PATCH TRANSDERM SCH (09:40)
[2020-10-24] MEDS: ENOXAPARIN 40 MG/0.4 ML SYRINGE SQ SCH (09:40)
[2020-10-24] MEDS: methylPREDNISolone SOD SUCCI 40 MG/ML 1 ML VIAL IV SCH (09:40)
[2020-10-24] MEDS: LEVOTHYROXINE 75 MCG TAB PO SCH (11:44)
[2020-10-24] MEDS: LORATADINE 10 MG TAB PO SCH (11:44)
[2020-10-24 12:01] LABS: Glucose,Whole Blood 135 mg/dL (75-99)
[2020-10-24] MEDS ORDERED: HALOPERIDOL LACTATE 5 MG/ML 1 ML VIAL IVP PRN (12:21)
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
[2020-10-24 15:44] LABS: ABG Base Excess 12.8 mmol/L; ABG HCO3 39 mmol/L (21-25); ABG Oxygen Saturation 91.2 % (94-97); ABG PH 7.34 (7.35-7.45); ABG PO2 64 mmHg (83-108); ABG TCO2 41 mmol/L (19-24); Allen Test Performed? Yes
[2020-10-24 16:01] LABS: ABG PCO2 71 mmHg (35-45)
[2020-10-24 16:40] LABS: Glucose,Whole Blood 339 mg/dL (75-99)
[2020-10-24] MEDS: methylPREDNISolone SOD SUCCI 125 MG/2 ML VIAL IV SCH ×2 (17:53→23:52)
[2020-10-24] MEDS: INSULIN ASPART (NovoLOG) 100 UNIT/ML VIAL SQ SCH ×2 (17:53→20:33)
[2020-10-24] MEDS ORDERED: methylPREDNISolone SOD SUCCI 40 MG/ML 1 ML VIAL IV SCH (18:00)
[2020-10-24 19:51] LABS: Glucose,Whole Blood 294 mg/dL (75-99)
[2020-10-24] MEDS: NYSTATIN 100,000 UNIT/ML SUSP 500,000 UNIT/5 ML CUP PO SCH (23:53)
[2020-10-25] MEDS: SODIUM CHLORIDE 0.9% 1,000 ML IV SCH ×2 (06:05→20:30)
[2020-10-25 06:12] LABS: Glucose,Whole Blood 285 mg/dL (75-99)
[2020-10-25] MEDS: methylPREDNISolone SOD SUCCI 125 MG/2 ML VIAL IV SCH (06:25)
[2020-10-25] MEDS: LEVOTHYROXINE 75 MCG TAB PO SCH (06:25)
[2020-10-25] MEDS: INSULIN ASPART (NovoLOG) 100 UNIT/ML VIAL SQ SCH ×4 (06:59→20:30)
[2020-10-25] MEDS: SYMBICORT 160-4.5 MCG INHALER INHALATION SCH ×2 (08:11→21:46)
[2020-10-25] MEDS: IPRATROPIUM-ALBUTEROL 3 ML NEB INHALATION SCH ×4 (08:11→21:46)
--- NOTE | 2020-10-25 08:46 | XR ---
EXAMINATION TYPE: XR chest 1V portable DATE OF EXAM: 10/25/2020 COMPARISON: 10/23/2020 INDICATION: CHF TECHNIQUE: Single frontal view of the chest is obtained. FINDINGS: The heart size is normal. The pulmonary vasculature is normal. Lung bauman are clear. IMPRESSION: 1. No acute pulmonary process.
[2020-10-25] MEDS: NICOTINE 21MG/24HR PATCH TRANSDERM SCH (08:58)
[2020-10-25] MEDS: ENOXAPARIN 40 MG/0.4 ML SYRINGE SQ SCH (08:58)
[2020-10-25] MEDS: NYSTATIN 100,000 UNIT/ML SUSP 500,000 UNIT/5 ML CUP PO SCH ×4 (08:58→20:30)
[2020-10-25] MEDS: LORATADINE 10 MG TAB PO SCH (08:58)
[2020-10-25 09:01] LABS: African American GFR (CKD) >90 (>60 ml/min/1.73 sqM); Anion Gap -1 mmol/L; Blood Urea Nitrogen 19 mg/dL (7-17); Calcium 9.1 mg/dL (8.4-10.2); Carbon Dioxide 39 mmol/L (22-30); Chloride 95 mmol/L (98-107); Glucose 256 mg/dL (74-99); Non-African American GFR(CKD) >90 (>60 ml/min/1.73 sqM); Potassium 4.3 mmol/L (3.5-5.1); Sodium 133 mmol/L (137-145)
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
[2020-10-25 11:48] LABS: Glucose,Whole Blood 351 mg/dL (75-99)
[2020-10-25 16:47] LABS: Glucose,Whole Blood 307 mg/dL (75-99)
[2020-10-25] MEDS: methylPREDNISolone SOD SUCCI 40 MG/ML 1 ML VIAL IV SCH ×2 (16:50→23:11)
[2020-10-25 20:18] LABS: Glucose,Whole Blood 280 mg/dL (75-99)
[2020-10-25] MEDS: INSULIN DETEMIR (LEVEMIR) 100 UNIT/ML SYR SQ SCH (20:30)
[2020-10-26 06:31] LABS: Glucose,Whole Blood 133 mg/dL (75-99)
[2020-10-26] MEDS: LEVOTHYROXINE 75 MCG TAB PO SCH (06:36)
[2020-10-26] MEDS: INSULIN ASPART (NovoLOG) 100 UNIT/ML VIAL SQ SCH ×4 (06:36→20:57)
[2020-10-26] MEDS: IPRATROPIUM-ALBUTEROL 3 ML NEB INHALATION SCH ×4 (07:37→20:04)
[2020-10-26] MEDS: SYMBICORT 160-4.5 MCG INHALER INHALATION SCH ×2 (07:37→20:04)
[2020-10-26] MEDS: LORATADINE 10 MG TAB PO SCH (08:23)
[2020-10-26] MEDS: ENOXAPARIN 40 MG/0.4 ML SYRINGE SQ SCH (08:23)
[2020-10-26] MEDS: SODIUM CHLORIDE 0.9% 1,000 ML IV SCH ×2 (08:23→20:58)
[2020-10-26] MEDS: methylPREDNISolone SOD SUCCI 40 MG/ML 1 ML VIAL IV SCH ×3 (08:23→23:50)
[2020-10-26] MEDS: NYSTATIN 100,000 UNIT/ML SUSP 500,000 UNIT/5 ML CUP PO SCH ×4 (08:24→20:59)
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
[2020-10-26 11:50] LABS: Glucose,Whole Blood 276 mg/dL (75-99)
[2020-10-26] MEDS: NICOTINE 21MG/24HR PATCH TRANSDERM SCH (13:01)
[2020-10-26] MEDS: lisinopriL 10 MG TAB PO SCH (13:03)
[2020-10-26 16:49] LABS: Glucose,Whole Blood 322 mg/dL (75-99)
[2020-10-26 20:26] LABS: Glucose,Whole Blood 234 mg/dL (75-99)
[2020-10-26] MEDS: INSULIN DETEMIR (LEVEMIR) 100 UNIT/ML SYR SQ SCH (20:58)
[2020-10-27 05:59] LABS: Glucose,Whole Blood 121 mg/dL (75-99)
[2020-10-27] MEDS: INSULIN ASPART (NovoLOG) 100 UNIT/ML VIAL SQ SCH ×4 (06:31→20:35)
[2020-10-27] MEDS: LEVOTHYROXINE 75 MCG TAB PO SCH (06:38)
[2020-10-27 08:45] LABS: African American GFR (CKD) >90 (>60 ml/min/1.73 sqM); Blood Urea Nitrogen 22 mg/dL (7-17); Calcium 8.8 mg/dL (8.4-10.2); Chloride 96 mmol/L (98-107); Glucose 119 mg/dL (74-99); Non-African American GFR(CKD) >90 (>60 ml/min/1.73 sqM); Sodium 136 mmol/L (137-145)
[2020-10-27 09:00] LABS: Potassium 4.7 mmol/L (3.5-5.1)
[2020-10-27 09:07] LABS: Anion Gap 3 mmol/L; Carbon Dioxide 37 mmol/L (22-30)
[2020-10-27] MEDS: lisinopriL 10 MG TAB PO SCH (09:18)
[2020-10-27] MEDS: LORATADINE 10 MG TAB PO SCH (09:18)
[2020-10-27] MEDS: methylPREDNISolone SOD SUCCI 40 MG/ML 1 ML VIAL IV SCH ×2 (09:19→18:25)
[2020-10-27] MEDS: ENOXAPARIN 40 MG/0.4 ML SYRINGE SQ SCH (09:19)
[2020-10-27] MEDS: NYSTATIN 100,000 UNIT/ML SUSP 500,000 UNIT/5 ML CUP PO SCH ×4 (09:20→20:35)
[2020-10-27] MEDS: IPRATROPIUM-ALBUTEROL 3 ML NEB INHALATION SCH ×4 (09:28→19:34)
[2020-10-27] MEDS: NICOTINE 21MG/24HR PATCH TRANSDERM SCH (09:28)
[2020-10-27] MEDS: SYMBICORT 160-4.5 MCG INHALER INHALATION SCH ×2 (09:29→19:34)
[2020-10-27 12:17] LABS: Glucose,Whole Blood 270 mg/dL (75-99)
[2020-10-27 17:24] LABS: Glucose,Whole Blood 272 mg/dL (75-99)
--- NOTE | 2020-10-27 18:02 | PN ---
PROGRESS NOTE DATE OF SERVICE: 10/27/2020 This 75-year-old woman who was admitted with acute on chronic respiratory failure secondary to COPD is being closely monitored. No chest pain. No palpitations. No fever. Dr. Sears is following the patient closely. PHYSICAL EXAMINATION: Alert and oriented x3. Pulse 104, blood pressure is 132/69, respiration 20, temperature normal, pulse ox 95% on 4 L. HEENT: Conjunctivae normal. NECK: No jugular venous distention. CARDIOVASCULAR SYSTEM: S1, S2 muffled. RESPIRATORY SYSTEM: Breath sounds diminished at the bases. A few scattered rhonchi and crackles. ABDOMEN: Soft, non-tender. LEGS: No edema. No swelling. NERVOUS SYSTEM: No focal deficit. LABS: WBC 9.4, hemoglobin 10.5. Sodium 136. Other labs are noted. ASSESSMENT: 1. Chronic obstructive pulmonary disease, acute exacerbation, with acute on chronic hypoxic hypercarbic respiratory failure. 2. acute purulent tracheobronchitis. 3. Hypothermia. 4. Hypovolemic hyponatremia. 5. Hyperkalemia. 6. Hypertension. 7. Hypothyroidism. 8. Continued nicotine dependence. 9. Increased white count. 10.Anemia, normocytic anemia of chronic disease. 11.Hyponatremia. RECOMMENDATIONS AND DISCUSSION: I recommend to continue current medications, continue symptomatic treatment. Otherwise, at this time I would recommend continuing with the bronchodilators. Continue with IV steroids. Repeat labs. Resume the home medications. Guarded prognosis. Further recommendations to follow. MMODL / IJN: [id number] / MTDD
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
[2020-10-27 19:46] LABS: Glucose,Whole Blood 233 mg/dL (75-99)
[2020-10-27] MEDS: SODIUM CHLORIDE 0.9% 1,000 ML IV SCH (20:36)
[2020-10-27] MEDS: INSULIN DETEMIR (LEVEMIR) 100 UNIT/ML SYR SQ SCH (22:06)
[2020-10-28] MEDS: methylPREDNISolone SOD SUCCI 40 MG/ML 1 ML VIAL IV SCH ×4 (01:06→23:54)
[2020-10-28 05:52] LABS: Glucose,Whole Blood 231 mg/dL (75-99)
[2020-10-28] MEDS: INSULIN ASPART (NovoLOG) 100 UNIT/ML VIAL SQ SCH ×4 (06:05→20:56)
[2020-10-28] MEDS: LEVOTHYROXINE 75 MCG TAB PO SCH (06:05)
[2020-10-28] MEDS: SYMBICORT 160-4.5 MCG INHALER INHALATION SCH ×2 (08:15→20:36)
[2020-10-28] MEDS: IPRATROPIUM-ALBUTEROL 3 ML NEB INHALATION SCH ×4 (08:15→20:36)
[2020-10-28 08:46] LABS: Basophils % (A) 0 %; Eosinophils % (A) 0 %; HCT 36.4 % (34.0-46.0); HGB 11.6 gm/dL (11.4-16.0); Hypochromasia Moderate; Lymphocytes # (A) 0.5 k/uL (1.0-4.8); Lymphocytes % (A) 5 %; MCH 30.3 pg (25.0-35.0); MCHC 31.9 g/dL (31.0-37.0); MCV 94.9 fL (80.0-100.0); Mean Platelet Volume 7.8; Monocytes # (A) 0.4 k/uL (0-1.0); Monocytes % (A) 4 %; Neutrophils # (A) 10.3 k/uL (1.3-7.7); Neutrophils % (A) 90 %; Platelet Count 277 k/uL (150-450); RBC 3.83 m/uL (3.80-5.40); RDW 13.4 % (11.5-15.5); WBC 11.4 k/uL (3.8-10.6)
[2020-10-28 08:47] LABS: African American GFR (CKD) >90 (>60 ml/min/1.73 sqM); Blood Urea Nitrogen 22 mg/dL (7-17); Calcium 9.1 mg/dL (8.4-10.2); Chloride 92 mmol/L (98-107); Glucose 238 mg/dL (74-99); Non-African American GFR(CKD) >90 (>60 ml/min/1.73 sqM); Potassium 4.7 mmol/L (3.5-5.1); Sodium 134 mmol/L (137-145)
[2020-10-28 08:56] LABS: Anion Gap 1 mmol/L
[2020-10-28] MEDS: NYSTATIN 100,000 UNIT/ML SUSP 500,000 UNIT/5 ML CUP PO SCH ×4 (09:00→20:55)
[2020-10-28] MEDS ORDERED: ASPIRIN 325 MG TAB PO SCH (09:00)
[2020-10-28] MEDS: LORATADINE 10 MG TAB PO SCH (09:01)
[2020-10-28] MEDS: lisinopriL 10 MG TAB PO SCH (09:01)
[2020-10-28] MEDS: ENOXAPARIN 40 MG/0.4 ML SYRINGE SQ SCH (09:01)
[2020-10-28] MEDS: NICOTINE 21MG/24HR PATCH TRANSDERM SCH (09:01)
[2020-10-28 09:18] LABS: Carbon Dioxide 41 mmol/L (22-30)
--- NOTE | 2020-10-28 11:31 | XR ---
EXAMINATION TYPE: XR wrist limited LT DATE OF EXAM: 10/28/2020 COMPARISON: 09/25/2020 HISTORY: Left wrist fracture with pain TECHNIQUE: 2 views submitted FINDINGS: There is a comminuted intra-articular fracture of the distal radius with interval developme nt of callus formation. Severe arthropathy of the first carpometacarpal and trapezial scaphoid joint in a pattern suggestive of osteoarthritis. Overlying casting material obscures bony detail. There allen s appear to be slight displacement of distal fracture fragment of the radius relative to the proximal fracture line. Dorsal angulation noted. IMPRESSION: Healing fracture distal radius.
[2020-10-28] MEDS ORDERED: LACTULOSE 20 GM/30 ML CUP PO ONE ×2 (11:33→17:40)
[2020-10-28 12:13] LABS: Glucose,Whole Blood 268 mg/dL (75-99)
--- NOTE | 2020-10-28 12:25 | P.CNOR ---
History of Present Illness - [facility] Consult date: 10/28/20 Consult reason: fracture History of present illness: Patient is a 75 yo female seen at bedside this am where I have been following her for a left distal radius fracture. She was to follow up in office at the 3 week mili for xrays in cast and recheck. She states her pain is controlled regarding her left wrist. She has no new complaints with numbness and is not having any issues with the cast. Review of Systems All systems: negative Constitutional: Denies chills, Denies fever Eyes: denies blurred vision, denies pain Ears, nose, mouth and throat: Denies headache, Denies sore throat Cardiovascular: Denies chest pain, Denies shortness of breath Respiratory: Denies cough Gastrointestinal: Denies abdominal pain, Denies diarrhea, Denies nausea, Denies vomiting Genitourinary: Denies dysuria, Denies hematuria Musculoskeletal: Denies myalgias Integumentary: Denies pruritus, Denies rash Neurological: Denies numbness, Denies weakness Psychiatric: Denies anxiety, Denies depression Endocrine: Denies fatigue, Denies weight change Past Medical History Past Medical History: Chest Pain / Angina, Heart Failure, COPD, Hypertension, Osteoarthritis (OA), Thyroid Disorder Additional Past Medical History / Comment(s): Advanced COPD, chronic hypoxic respiratory failure, former smoker, hypertension, hypothyroidism, skeletal chest wall pain, chronic anxiety ,leg and foot wounds History of Any Multi-Drug Resistant Organisms: None Reported Past Surgical History: Heart Catheterization, Hysterectomy, Tubal Ligation Additional Past Surgical History / Comment(s): cataracts removed Past Anesthesia/Blood Transfusion Reactions: Previous Problems w/ Anesthesia, Postoperative Nausea & Vomiting (PONV) Additional Past Anesthesia/Blood Transfusion Reaction / Comm: oxygen was "low" post op, nausea one time Past Psychological History: Anxiety Smoking Status: Current some day smoker Past Alcohol Use History: None Reported, Rare Past Drug Use History: None Reported - Past Family History Mother History Unknown: Yes Family Medical History: Cancer, Thyroid Disorder Additional Family Medical History / Comment(s): Liver Cancer Father History Unknown: Yes Family Medical History: Cancer Medications and Allergies Home Medications Medication Instructions Recorded Confirmed Type Budesonide-Formot 160-4.5 Mcg 2 puff INHALATION RT-BID #1 vial 12/05/18 10/23/20 Rx [Symbicort 160-4.5 Mcg Inhaler] Levothyroxine Sodium [Synthroid] 150 mcg PO DAILY #30 tablet 12/05/18 10/23/20 Rx lisinopriL [Zestril] 20 mg PO BID #60 tab 12/05/18 10/23/20 Rx Albuterol Sulfate [Proair Hfa] 2 puff INHALATION RT-QID PRN 09/25/20 10/23/20 History Aspirin 325 mg PO Q48H 09/25/20 10/23/20 History predniSONE 5 mg PO SUTUTHSA 09/25/20 10/23/20 History predniSONE 10 mg PO MOWEFR 09/25/20 10/23/20 History Fluticasone/Salmeterol [Advair 1 puff INHALATION RT-BID 10/23/20 10/23/20 History 250-50 Diskus] Ketorolac 0.5% Ophth Soln [Acular] 1 drop BOTH EYES QID PRN 10/23/20 10/23/20 H istory Loratadine [Claritin] 10 mg PO DAILY 10/23/20 10/23/20 History Allergies Allergy/AdvReac Type Severity Reaction Status Date / Time bacitracin Allergy Rash/Hives Verified 10/23/20 07:09 [From Neosporin ([id number])] neomycin Allergy Rash/Hives Verified 10/23/20 07:09 [From Neosporin ([id number])] Penicillins Allergy Rash/Hives Verified 10/23/20 07:09 polymyxin B Allergy Rash/Hives Verified 10/23/20 07:09 [From Neosporin ([id number])] trimethoprim [From Polytrim] Allergy Rash/Hives Verified 10/23/20 07:09 levofloxacin [From Levaquin] AdvReac WEAKNESS Verified 10/23/20 07:09 ELDA/POLY/DEX Allergy Rash/Hives Uncoded 10/23/20 07:09 Physical Examination The cast is well cared for and intact. There is an intact EPL, FPL, extensor indicis, hand intrinsics and the FDP to the small finger. Intact radial, median and ulnar nerve sensations as well as 2+ radial pulse and brisk capillary refill distally. Results Imaging Orders: X-rays of the left wrist including two views were ordered, obtained and interpreted from an orthopedic standpoint and show Stable fracture with alignment maintained and healing present. - Labs Labs: Abnormal Lab Results - Last 24 Hours (Table) 10/27/20 10/27/20 10/28/20 Range/Units 17:22 19:43 05:51 WBC (3.8-10.6) k/uL Neutrophils # (1.3-7.7) k/uL Lymphocytes # (1.0-4.8) k/uL Sodium (137-145) mmol/L Chloride (98-107) mmol/L Carbon Dioxide (22-30) mmol/L BUN (7-17) mg/dL Glucose (74-99) mg/dL POC Glucose (mg/dL) 272 H 233 H 231 H (75-99) mg/dL 10/28/20 10/28/20 10/28/20 Range/Units 08:08 08:08 12:11 WBC 11.4 H (3.8-10.6) k/uL Neutrophils # 10.3 H (1.3-7.7) k/uL Lymphocytes # 0.5 L (1.0-4.8) k/uL Sodium 134 L (137-145) mmol/L Chloride 92 L (98-107) mmol/L Carbon Dioxide 41 H* (22-30) mmol/L BUN 22 H (7-17) mg/dL Glucose 238 H (74-99) mg/dL POC Glucose (mg/dL) 268 H (75-99) mg/dL H & H 10/23/20 10/24/20 10/28/20 Range/Units 06:39 07:10 08:08 Hgb 12.2 10.5 L 11.6 (11.4-16.0) gm/dL Hct 38.9 33.5 L 36.4 (34.0-46.0) % Coagulation 10/23/20 Range/Units 06:39 INR 0.8 (<1.2) Result Diagrams: 10/28/20 08:08 10/28/20 08:08 - Diagnostic results Wrist/Hand x-ray: report reviewed, image reviewed Assessment and Plan (1) Distal radius fracture, left Narrative/Plan: She will continue in short arm cast for two more weeks. I advised her on cast care, proper activities and elevation. She will follow up in office in two weeks for xrays out of cast. Thank you Current Visit: Yes Status: Acute Priority: Medium Code(s): S52.502A - UNSP FRACTURE OF THE LOWER END OF LEFT RADIUS, INIT SNOMED Code(s): 670751916 Time with Patient: Less than 30
[2020-10-28 13:51] VITALS: BMI 20.9
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
[2020-10-28 17:19] LABS: Glucose,Whole Blood 317 mg/dL (75-99)
[2020-10-28] MEDS ORDERED: LACTULOSE 20 GM/30 ML CUP PO PRN (19:39)
[2020-10-28 19:47] LABS: Glucose,Whole Blood 193 mg/dL (75-99)
--- NOTE | 2020-10-28 20:10 | PN ---
PROGRESS NOTE DATE OF SERVICE: 10/28/2020 This 75-year-old woman who was admitted with COPD, acute exacerbation, with acute on chronic hypoxic hypercarbic respiratory failure is being closely monitored. Patient also had a cast which is being reapplied by Orthopedic Surgery. The patient is also complaining of severe constipation for the last 6 days. Portable chest x-ray, which was reviewed personally by me, done 2 days ago, showed evidence of some CHF. The patient is being closely monitored. Past medical history reviewed. REVIEW OF SYSTEMS: CARDIOVASCULAR SYSTEM: No angina, palpitations. RESPIRATORY SYSTEM: As mentioned earlier. GI: As mentioned earlier. : No dysuria or retention. NERVOUS SYSTEM: No numbness, weakness. CURRENT MEDICATIONS: Reviewed. They include DuoNeb, aspirin, Symbicort, Colace, Lovenox, Haldol, NovoLog, Levemir, Synthroid, Zestril, Claritin. PHYSICAL EXAMINATION: Patient is alert, oriented x3. Pulse is 82, blood pressure 150/75, respiration 18, temperature normal, pulse ox 98% on 4 L. HEENT: Conjunctivae normal. NECK: No jugular venous distention. CARDIOVASCULAR SYSTEM: S1, S2 muffled. RESPIRATORY SYSTEM: Breath sounds diminished at the bases. A few scattered rhonchi and crackles. ABDOMEN: Soft, non-tender. LEGS: No edema. No swelling. NERVOUS SYSTEM: No focal deficit. LABS: WBC 11.4. Sodium 134, potassium 4.7. Glucose 268. ASSESSMENT: 1. Chronic obstructive pulmonary disease, acute exacerbation, with acute on chronic hypoxic hypercarbic respiratory failure. 2. Acute purulent tracheobronchitis. 3. Hypothermia. 4. Hypovolemic hyponatremia. 5. Severe constipation and obstipation. 6. Hyperkalemia. 7. Hypertension. 8. Hypothyroidism. 9. Continued nicotine dependence. 10.Increased white count. 11.Anemia, microcytic anemia of chronic disease. 12.Hyponatremia. 13.Recent distal radius fracture, left. RECOMMENDATIONS AND DISCUSSION: I recommend to continue current medications, continue with the monitoring, symptomatic treatment. Otherwise, will repeat x-ray. Continue with short-arm cast for 2 more weeks per Orthopedic Surgery. As for the constipation, I would recommend lactulose q.4 p.r.n. until bowel movements. Once the patient is cleared, the patient will be sent to [facility] rehab. The prognosis is extremely guarded because of multiple complex medical issues. Further recommendations to follow. MMODL / IJN: [id number] / MTDFrancine
[2020-10-28] MEDS: INSULIN DETEMIR (LEVEMIR) 100 UNIT/ML SYR SQ SCH (20:55)
[2020-10-28] MEDS: DOCUSATE 100 MG CAP PO SCH (20:55)
[2020-10-28] MEDS: SODIUM CHLORIDE 0.9% 1,000 ML IV SCH (20:56)
[2020-10-29 05:57] LABS: Glucose,Whole Blood 284 mg/dL (75-99)
[2020-10-29] MEDS: INSULIN ASPART (NovoLOG) 100 UNIT/ML VIAL SQ SCH ×3 (06:32→17:06)
[2020-10-29] MEDS: LEVOTHYROXINE 75 MCG TAB PO SCH (06:32)
[2020-10-29] MEDS: NYSTATIN 100,000 UNIT/ML SUSP 500,000 UNIT/5 ML CUP PO SCH ×2 (08:34→17:05)
[2020-10-29] MEDS: DOCUSATE 100 MG CAP PO SCH (08:34)
[2020-10-29] MEDS: ENOXAPARIN 40 MG/0.4 ML SYRINGE SQ SCH (08:34)
[2020-10-29] MEDS: NICOTINE 21MG/24HR PATCH TRANSDERM SCH (08:34)
[2020-10-29] MEDS: methylPREDNISolone SOD SUCCI 40 MG/ML 1 ML VIAL IV SCH ×2 (08:34→17:05)
[2020-10-29] MEDS: lisinopriL 10 MG TAB PO SCH (08:34)
[2020-10-29] MEDS: LORATADINE 10 MG TAB PO SCH (08:34)
[2020-10-29] MEDS: SYMBICORT 160-4.5 MCG INHALER INHALATION SCH ×2 (09:06→16:34)
[2020-10-29] MEDS: IPRATROPIUM-ALBUTEROL 3 ML NEB INHALATION SCH ×3 (09:06→16:29)
[2020-10-29 11:54] LABS: Glucose,Whole Blood 289 mg/dL (75-99)
--- NOTE | 2020-10-29 13:47 | P.DS ---
Providers Date of admission: 10/23/20 06:48 Expected date of discharge: 10/29/20 Attending physician: Chava Limon Consults: 10/23/20 06:48 Consult Physician Routine Consulting Provider: Chris Sears Consult Reason/Comments: known Do you want consulting provider notified?: Yes 10/27/20 11:33 Consult Physician Routine Consulting Provider: Cole Ruffin Consult Reason/Comments: follow up on right forearm cast, Joni Null pt Do you want consulting provider notified?: Yes Primary care physician: Chris Sears Hospital Course: Final diagnosis Chronic obstructive pulmonary disease, acute exacerbation, with acute on chronic hypoxic hypercarbic respiratory failure Acute purulent tracheobronchitis Possible new onset diabetes mellitus type 2 with uncontrolled hyperglycemia possibly secondary steroid-induced hyperglycemia Hyponatremia Hypovolemic hyponatremia Severe constipation and obstipation Hyperkalemia Hypertension Hypothyroidism Continued nicotine dependence Increased white count Anemia, microcytic anemia of chronic disease hyponatremia Recent distal radius fracture of the left side Discharge disposition Patient is being discharged in a stable condition with guarded prognosis to home. Patient will continue with home care in the outpatient setting. Patient will follow-up with Dr. Sears upon discharge. Patient will continue with sliding scale insulin along with long-acting insulin and prescriptions being provided. Recommend repeat labs in 2-3 days as well. Patient will also continue on a prednisone taper in the outpatient setting. Total time taken is greater than 35 minutes. Hospital course This is a 75-year-old female who was recently admitted with COPD acute exacerbation with acute on chronic hypoxic hypercarbic respiratory failure and was being closely monitored. Multiple medical consultations following including pulmonary and orthopedics. Continue with a short arm cast of the left side and follow-up with orthopedics outpatient. Patient also instructed to follow-up closely with pulmonary in the outpatient setting. Patient was having severe constipation with no bowel movements for the last week and was given lactulose and had a bowel movement yesterday and will continue with bowel regimen outpatient. Patient continues to be on oxygen along with breathing inhalational treatments and will continue. Patient will also continue with the prednisone taper. Patient was having consistent elevated blood glucose with possible new onset diabetes mellitus type 2 with uncontrolled blood sugars and hemoglobin A1c was sent out and is pending. patient will continue with Accu-Cheks before meals and at bedtime and instructed to keep a diary for primary care follow-up she will be going home on sliding scale insulin along with long-acting. Scripts and sent to the pharmacy. Patient will also need a glucometer for times per day testing. Patient was seen and evaluated by PT/OT therapy recommending subacute rehab for her continued weakness although patient is adamant in refusing and is agreeable to home care. Patient states her son and live at home and she has help at home. Currently no reports of chest pain, worsening shortness of breath, or palpitations. Patient is afebrile. No reports of nausea or vomiting and patient is tolerating diet. Due to multiple complex medical issues, prognosis is guarded. Patient will be discharged home today. On exam vital signs are stable. Cardio S1, S2 are muffled. Respiratory shows diminished breath sounds at the bases with a few scattered rhonchi noted. Abdomen is soft and nontender. Nervous system shows mild diffuse weakness. Please refer to medication reconciliation sheet for a list of medications. Patient Condition at Discharge: Fair Plan - Discharge Summary Discharge Rx Participant: No New Discharge Prescriptions: New Docusate [Colace] 100 mg PO BID 30 Days #60 cap Nicotine 21Mg/24Hr Patch [Habitrol] 1 patch TRANSDERM DAILY #20 patch Insulin Detemir (Levemir) [Levemir] 15 unit SQ HS 30 Days #4 syr INSULIN ASPART (NovoLOG) [NovoLOG (formulary)] 0 unit SQ ACHS 30 Days #4 vial predniSONE 10 mg PO DIRECTED #30 tab Ipratropium-Albuterol Nebulize [Duoneb 0.5 mg-3 mg/3 ml Soln] 3 ml INHALATION RT-QID 30 Days #120 ml Ipratropium-Albuterol Nebulize [Duoneb 0.5 mg-3 mg/3 ml Soln] 3 ml INHALATION RT-Q4H PRN ml PRN Reason: Shortness Of Breath Or Wheezing Nystatin 100,000 Unit/ml Susp [Mycostatin Oral Susp] 500,000 unit PO QID 7 Da ys #240 ml Continue Budesonide-Formot 160-4.5 Mcg [Symbicort 160-4.5 Mcg Inhaler] 2 puff INHALATION RT-BID #1 vial Levothyroxine Sodium [Synthroid] 150 mcg PO DAILY #30 tablet Loratadine [Claritin] 10 mg PO DAILY Albuterol Sulfate [Proair Hfa] 2 puff INHALATION RT-QID PRN PRN Reason: Shortness Of Breath Aspirin 325 mg PO Q48H Fluticasone/Salmeterol [Advair 250-50 Diskus] 1 puff INHALATION RT-BID Ketorolac 0.5% Ophth Soln [Acular 0.5%] 1 drop BOTH EYES QID PRN PRN Reason: Itching Changed lisinopriL [Zestril] 10 mg PO DAILY #30 tab Discontinued predniSONE 5 mg PO SUTUTHSA predniSONE 10 mg PO MOWEFR Discharge Medication List Budesonide-Formot 160-4.5 Mcg [Symbicort 160-4.5 Mcg Inhaler] 2 puff INHALATION RT-BID #1 vial 12/05/18 [Rx] Levothyroxine Sodium [Synthroid] 150 mcg PO DAILY #30 tablet 12/05/18 [Rx] Albuterol Sulfate [Proair Hfa] 2 puff INHALATION RT-QID PRN 09/25/20 [History] Aspirin 325 mg PO Q48H 09/25/20 [History] Fluticasone/Salmeterol [Advair 250-50 Diskus] 1 puff INHALATION RT-BID 10/23/20 [History] Ketorolac 0.5% Ophth Soln [Acular 0.5%] 1 drop BOTH EYES QID PRN 10/23/20 [History] Loratadine [Claritin] 10 mg PO DAILY 10/23/20 [History] Docusate [Colace] 100 mg PO BID 30 Days #60 cap 10/29/20 [Rx] INSULIN ASPART (NovoLOG) [NovoLOG (formulary)] 0 unit SQ ACHS 30 Days #4 vial 10/29/20 [Rx] Insulin Detemir (Levemir) [Levemir] 15 unit SQ HS 30 Days #4 syr 10/29/20 [Rx] Ipratropium-Albuterol Nebulize [Duoneb 0.5 mg-3 mg/3 ml Soln] 3 ml INHALATION RT-Q4H PRN ml 10/29/20 [Rx] Ipratropium-Albuterol Nebulize [Duoneb 0.5 mg-3 mg/3 ml Soln] 3 ml INHALATION RT-QID 30 Days #120 ml 10/29/20 [Rx] Nicotine 21Mg/24Hr Patch [Habitrol] 1 patch TRANSDERM DAILY #20 patch 10/29/20 [Rx] Nystatin 100,000 Unit/ml Susp [Mycostatin Oral Susp] 500,000 unit PO QID 7 Days #240 ml 10/29/20 [Rx] lisinopriL [Zestril] 10 mg PO DAILY #30 tab 10/29/20 [Rx] predniSONE 10 mg PO DIRECTED #30 tab 10/29/20 [Rx] Follow up Appointment(s)/Referral(s): Chris Sears MD [Primary Care Provider] - 1-2 days Joni Null PAC [PHYSICIAN CUT PRESSMAN] - 2 Weeks (For follow-up and cast removal.) [facility], [NON-STAFF] - As Needed Ambulatory/Diagnostic Orders: Complete Blood Count w/diff [LAB.AMB] Time Frame: 2 Days, Location: None Selected Patient Instructions/Handouts: COPD (Chronic Obstructive Pulmonary Disease) (DC) Activity/Diet/Wound Care/Special Instructions: Pt will need a glucometer to manage dx: DM. She will d/c home on novolog and levemir. She will be checking her blood sugars 4x daily. Activity Limited until follow-up Follow-up with primary care provider Follow-up pulmonary outpatient Continue with breathing treatments Opinion with prednisone taper Continue to monitor blood sugars before meals and at bedtime keep a diary for primary care follow-up NovoLog sliding scale 0-150 equals 0 units 151-200 equals 2 units 201-250 equals 4 units 251-300 equals 6 units 301-350 equals 8 units 351-400 equals 10 units Please notify provider if blood sugar is 400 or above Also continue with long-acting insulin Hold insulin if blood sugar is less than 100 continue heart healthy diabetic diet Repeat labs in 2-3 days Discharge Disposition: HOME WITH HOME HEALTH SERVICES
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
[2020-10-29 15:14] VITALS: BP 180/74; RESP 16; TEMP 98.2
[2020-10-29 16:53] VITALS: PULSE 80
[2020-10-29 16:57] LABS: Glucose,Whole Blood 271 mg/dL (75-99)
== END 2020-10-29 18:26 | disposition home health service (06) | DRG 190 ==
LOC: EC 06:24 → 3SCARD 06:48
PROVIDERS: ADMIT Hospitalist; ATTEND Hospitalist
PROC: 5A09557 Assistance with Respiratory Ventilation, Greater than 96 Consecutive Hours, Continuous Positive Airway Pressure (ICD-10-PCS; principal; 2020-10-23)
DX: J44.1 Chronic obstructive pulmonary disease with (acute) exacerbation (principal); J96.21 Acute and chronic respiratory failure with hypoxia; J96.22 Acute and chronic respiratory failure with hypercapnia; E46 Unspecified protein-calorie malnutrition; R64 Cachexia; E87.1 Hypo-osmolality and hyponatremia; Z68.1 Body mass index [BMI] 19.9 or less, adult; D63.8 Anemia in other chronic diseases classified elsewhere; I95.9 Hypotension, unspecified; I11.0 Hypertensive heart disease with heart failure; I50.9 Heart failure, unspecified; E86.1 Hypovolemia; I73.9 Peripheral vascular disease, unspecified; E11.65 Type 2 diabetes mellitus with hyperglycemia; Z20.822 Contact with and (suspected) exposure to COVID-19; T20.02XA Burn of unspecified degree of lip(s), initial encounter; T41.5X1A Poisoning by therapeutic gases, accidental (unintentional), initial encounter; T59.811A Toxic effect of smoke, accidental (unintentional), initial encounter; E87.5 Hyperkalemia; E03.9 Hypothyroidism, unspecified; F41.1 Generalized anxiety disorder; K59.00 Constipation, unspecified; R25.1 Tremor, unspecified; S52.502D Unspecified fracture of the lower end of left radius, subsequent encounter for closed fracture with routine healing; K57.90 Diverticulosis of intestine, part unspecified, without perforation or abscess without bleeding; I83.90 Asymptomatic varicose veins of unspecified lower extremity; T38.0X5A Adverse effect of glucocorticoids and synthetic analogues, initial encounter; M19.90 Unspecified osteoarthritis, unspecified site; F17.210 Nicotine dependence, cigarettes, uncomplicated; Z71.6 Tobacco abuse counseling; Z99.81 Dependence on supplemental oxygen; Z79.82 Long term (current) use of aspirin; Z79.890 Hormone replacement therapy; Z79.51 Long term (current) use of inhaled steroids; Z79.52 Long term (current) use of systemic steroids; Z79.899 Other long term (current) drug therapy; Z91.81 History of falling; Z87.39 Personal history of other diseases of the musculoskeletal system and connective tissue; Z87.01 Personal history of pneumonia (recurrent); Z86.010 Personal history of colon polyps; Z90.710 Acquired absence of both cervix and uterus; Z87.42 Personal history of other diseases of the female genital tract; Z98.51 Tubal ligation status; Z98.42 Cataract extraction status, left eye; Z98.41 Cataract extraction status, right eye; Z96.1 Presence of intraocular lens; Z98.890 Other specified postprocedural states; Z88.1 Allergy status to other antibiotic agents; Z88.3 Allergy status to other anti-infective agents; Z88.0 Allergy status to penicillin; Z83.49 Family history of other endocrine, nutritional and metabolic diseases; Z80.0 Family history of malignant neoplasm of digestive organs; Z80.9 Family history of malignant neoplasm, unspecified; Z82.49 Family history of ischemic heart disease and other diseases of the circulatory system
CPT/HCPCS: 36415; 36600; 71045; 80048; 80053; 81003; 82375; 82550; 82803; 82805; 83036; 83605; 83615; 83735; 83880; 84100; 84145; 84484; 85025; 85027; 85610; 85730; 86140; 87635; 93005; 94640; 94660; 94760; 99285

== ENCOUNTER 2020-11-10 02:35 | Inpatient (IN) | payer MEDICARE, BC ==
[2020-11-10] MEDS ORDERED: SODIUM CHLORIDE 0.9% 1,000 ML IV STA ×2 (02:39)
[2020-11-10] MEDS ORDERED: SODIUM CHLORIDE 0.9% 500 ML 500 ML IV STA (02:39)
--- NOTE | 2020-11-10 02:40 | ED ---
Weakness HPI - General Stated complaint: altered mental status Time Seen by Provider: 11/10/20 02:37 Source: RN notes reviewed, old records reviewed - History of Present Illness Initial comments: This is a 75-year-old female. Patient Dese for evaluation regards to complaints of weakness fall patient is found to have altered mental status. Patient has not been eating and drinking well. History obtained by EMS and patient's prior charting. Patient poor strain secondary to clinical condition MD Complaint: generalized weakness, lack of energy -: unknown Location: generalized Severity: moderate Consistency: constant Improves with: none Worsens with: none Context: recent illness, history of similar Associated Symptoms: confusion, loss of appetite, shortness of breath - Related Data Home Medications Medication Instructions Recorded Confirmed Albuterol Sulfate [Proair Hfa] 2 puff INHALATION RT-QID PRN 09/25/20 11/14/20 Aspirin 325 mg PO Q48H 09/25/20 11/14/20 Fluticasone/Salmeterol [Advair 1 puff INHALATION RT-BID 10/23/20 11/14/20 250-50 Diskus] Ketorolac 0.5% Ophth Soln [Acular 1 drop BOTH EYES QID PRN 10/23/20 11/14/20 0.5%] Loratadine [Claritin] 10 mg PO DAILY 10/23/20 11/14/20 INSULIN ASPART (NovoLOG) [NovoLOG See Protocol SQ ACHS 11/10/20 11/14/20 (formulary)] Previous Rx's Medication Instructions Recorded Budesonide-Formot 160-4.5 Mcg 2 puff INHALATION RT-BID #1 vial 12/05/18 [Symbicort 160-4.5 Mcg Inhaler] Levothyroxine Sodium [Synthroid] 150 mcg PO DAILY #30 tablet 12/05/18 Docusate [Colace] 100 mg PO BID 30 Days #60 cap 10/29/20 Insulin Detemir (Levemir) [Levemir] 15 unit SQ HS 30 Days #4 syr 10/29/20 Ipratropium-Albuterol Nebulize 3 ml INHALATION RT-Q4H PRN ml 10/29/20 [Duoneb 0.5 mg-3 mg/3 ml Soln] Ipratropium-Albuterol Nebulize 3 ml INHALATION RT-QID 30 Days 10/29/20 [Duoneb 0.5 mg-3 mg/3 ml Soln] #120 ml Nicotine 21Mg/24Hr Patch [Habitrol] 1 patch TRANSDERM DAILY #20 patch 10/29/20 Acetaminophen Tab [Tylenol] 650 mg PO Q6HR PRN tab 11/14/20 Levofloxacin [Levaquin] 500 mg PO DAILY 5 Days #1 tab 11/14/20 Folic Acid 1 mg PO DAILY@1200 tab 11/20/20 Multivitamins, Thera [Multivitamin 1 each PO DAILY@1200 tab 11/20/20 (formulary)] Pantoprazole [Protonix] 40 mg PO AC-[id number] tablet. 11/20/20 Thiamine [Vitamin B-1] 100 mg PO DAILY@1200 tab 11/20/20 predniSONE [Deltasone] 20 mg PO DAILY tab 11/20/20 Allergies Allergy/AdvReac Type Severity Reaction Status Date / Time bacitracin Allergy Rash/Hives Verified 11/14/20 23:11 [From Neosporin ([id number])] neomycin Allergy Rash/Hives Verified 11/14/20 23:11 [From Neosporin ([id number])] Penicillins Allergy Rash/Hives Verified 11/14/20 23:11 polymyxin B Allergy Rash/Hives Verified 11/14/20 23:11 [From Neosporin ([id number])] trimethoprim [From Polytrim] Allergy Rash/Hives Verified 11/14/20 23:11 levofloxacin [From Levaquin] AdvReac WEAKNESS Verified 11/14/20 23:11 ELDA/POLY/DEX Allergy Rash/Hives Uncoded 11/10/20 07:03 Review of Systems ROS Statement: Those systems with pertinent positive or pertinent negative responses have been documented in the HPI. ROS Other: All systems not noted in ROS Statement are negative. Past Medical History Past Medical History: Chest Pain / Angina, Heart Failure, COPD, Hypertension, Osteoarthritis (OA), Thyroid Disorder Additional Past Medical History / Comment(s): Advanced COPD, chronic hypoxic respiratory failure, former smoker, hypertension, hypothyroidism, skeletal chest wall pain, chronic anxiety ,leg and foot wounds History of Any Multi-Drug Resistant Organisms: None Reported Past Surgical History: Heart Catheterization, Hysterectomy, Tubal Ligation Additional Past Surgical History / Comment(s): cataracts removed Past Anesthesia/Blood Transfusion Reactions: Previous Problems w/ Anesthesia, Postoperative Nausea & Vomiting (PONV) Additional Past Anesthesia/Blood Transfusion Reaction / Comment(s): oxygen was "low" post op, nausea one time Past Psychological History: Anxiety Smoking Status: Current some day smoker Past Alcohol Use History: None Reported, Rare Past Drug Use History: None Reported - Past Family History Mother History Unknown: Yes Family Medical History: Cancer, Thyroid Disorder Additional Family Medical History / Comment(s): Liver Cancer Father History Unknown: Yes Family Medical History: Cancer General Exam Limitations: altered mental status General appearance: alert, in no apparent distress, anxious Head exam: Present: atraumatic, normocephalic, normal inspection Eye exam: Present: normal appearance, PERRL, EOMI. Absent: scleral icterus, conjunctival injection, periorbital swelling ENT exam: Present: normal exam, mucous membranes dry Neck exam: Present: normal inspection. Absent: tenderness, meningismus, lymphadenopathy Respiratory exam: Present: wheezes, decreased breath sounds, prolonged expiratory. Absent: respiratory distress, rales, rhonchi, stridor Cardiovascular Exam: Present: normal rhythm, tachycardia, normal heart sounds. Absent: systolic murmur, diastolic murmur, rubs, gallop, clicks GI/Abdominal exam: Present: soft, normal bowel sounds. Absent: distended, tenderness, guarding, rebound, rigid Extremities exam: Present: normal inspection, full ROM, normal capillary refill. Absent: tenderness, pedal edema, joint swelling, calf tenderness Back exam: Present: normal inspection Neurological exam: Present: alert, oriented X3, CN II-XII intact Psychiatric exam: Present: normal affect, normal mood Skin exam: Present: warm, dry, intact, normal color. Absent: rash Course Vital Signs 11/10/20 11/10/20 11/10/20 02:49 03:44 04:48 Temperature 99 F Pulse Rate 112 H 101 H 72 Respiratory 20 17 18 Rate Blood Pressure 108/64 119/74 108/69 O2 Sat by Pulse 99 97 93 L Oximetry 11/10/20 11/10/20 11/10/20 07:38 10:15 12:18 Temperature 98.4 F Pulse Rate 116 H 110 H 90 Respiratory 22 20 Rate Blood Pressure 106/65 106/65 O2 Sat by Pulse 95 100 Oximetry 11/10/20 11/10/20 11/10/20 12:23 12:27 14:07 Temperature 98.7 F Pulse Rate 87 95 92 Respiratory 20 22 Rate Blood Pressure 106/65 96/54 O2 Sat by Pulse 98 97 Oximetry 11/10/20 11/10/20 11/10/20 15:06 15:09 15:16 Temperature Pulse Rate 92 92 93 Respiratory 20 Rate Blood Pressure 94/63 O2 Sat by Pulse 97 Oximetry 11/10/20 17:06 Temperature 98.4 F Pulse Rate 88 Respiratory 22 Rate Blood Pressure 104/58 O2 Sat by Pulse 100 Oximetry - Reevaluation(s) Reevaluation #1: Medical record is reviewed A she has no improvement here in the emergency room Patient informed results and questions answered Patient admitted for IV antibiotics EKG Findings - EKG Comments: EKG Findings:: EKG shows sinus tachycardia 114 ID 124 QRS 94 QTC 4:30 Medical Decision Making - Medical Decision Making 75 female with UTI altered mental status and COPD exacerbation. Patient will be admitted for IV antibiotics and monitoring of cardiopulmonary status - Lab Data Result diagrams: 11/14/20 10:21 11/14/20 10:21 Lab Results 11/10/20 11/10/20 11/10/20 Range/Units 03:44 03:44 03:44 WBC 26.0 H (3.8-10.6) k/uL RBC 3.53 L (3.80-5.40) m/uL Hgb 10.4 L (11.4-16.0) gm/dL Hct 32.8 L (34.0-46.0) % MCV 92.8 (80.0-100.0) fL MCH 29.5 (25.0-35.0) pg MCHC 31.8 (31.0-37.0) g/dL RDW 14.0 (11.5-15.5) % Plt Count 101 L D (150-450) k/uL Plt Count Comment MPV 8.9 Absolute Nucleated RBC (0.00-0.00) X 10*3/uL Neutrophils % 95 % Lymphocytes % 1 % Monocytes % 3 % Eosinophils % 0 % Basophils % 0 % Neutrophils # 24.8 H (1.3-7.7) k/uL Lymphocytes # 0.2 L (1.0-4.8) k/uL Monocytes # 0.7 (0-1.0) k/uL Eosinophils # 0.0 (0-0.7) k/uL Basophils # 0.1 (0-0.2) k/uL NRBC/100 WBC Diff (0.0-0.0) /100 WBCS RBC Morphology Hypochromasia Moderate PT 9.4 (9.0-12.0) sec INR 0.8 (<1.2) APTT 20.0 L (22.0-30.0) sec Sodium 130 L (137-145) mmol/L Potassium 4.1 (3.5-5.1) mmol/L Chloride 95 L (98-107) mmol/L Carbon Dioxide 32 H (22-30) mmol/L Anion Gap 3 mmol/L BUN 36 H (7-17) mg/dL Creatinine 0.77 (0.52-1.04) mg/dL Est GFR (CKD-EPI)AfAm 86 (>60 ml/min/1.73 sqM) Est GFR (CKD-EPI)NonAf 75 (>60 ml/min/1.73 sqM) BUN/Creatinine Ratio (12.00-20.00) Ratio Glucose 337 H (74-99) mg/dL POC Glucose (mg/dL) (75-99) mg/dL POC Glu Rigging Foreman ID Plasma Lactic Acid Lance (0.7-2.0) mmol/L Calcium 8.8 (8.4-10.2) mg/dL Phosphorus 2.2 L (2.5-4.5) mg/dL Magnesium 2.1 (1.6-2.3) mg/dL Total Bilirubin 0.3 (0.2-1.3) mg/dL AST 17 (14-36) U/L ALT 14 (4-34) U/L Alkaline Phosphatase 192 H (38-126) U/L Creatine Kinase 25 L (30-135) U/L Troponin I (0.000-0.034) ng/mL NT-Pro-B Natriuret Pep pg/mL Total Protein 5.0 L (6.3-8.2) g/dL Albumin 2.5 L (3.5-5.0) g/dL Urine Color Urine Appearance (Clear) Urine pH (5.0-8.0) Ur Specific [place] (1.001-1.035) Urine Protein (Negative) Urine Glucose (UA) (Negative) Urine Ketones (Negative) Urine Blood (Negative) Urine Nitrite (Negative) Urine Bilirubin (Negative) Urine Urobilinogen (<2.0) mg/dL Ur Leukocyte Esterase (Negative) Urine RBC (0-5) /hpf Urine WBC (0-5) /hpf Ur Squamous Epith Cells (0-4) /hpf Amorphous Sediment (None) /hpf Urine Bacteria (None) /hpf Hyaline Casts (0-2) /lpf Urine Mucus (None) /hpf Coronavirus (PCR) (Not Detectd) 11/10/20 11/10/20 11/10/20 Range/Units 03:44 03:44 04:48 WBC (3.8-10.6) k/uL RBC (3.80-5.40) m/uL Hgb (11.4-16.0) gm/dL Hct (34.0-46.0) % MCV (80.0-100.0) fL MCH (25.0-35.0) pg MCHC (31.0-37.0) g/dL RDW (11.5-15.5) % Plt Count (150-450) k/uL Plt Count Comment MPV Absolute Nucleated RBC (0.00-0.00) X 10*3/uL Neutrophils % % Lymphocytes % % Monocytes % % Eosinophils % % Basophils % % Neutrophils # (1.3-7.7) k/uL Lymphocytes # (1.0-4.8) k/uL Monocytes # (0-1.0) k/uL Eosinophils # (0-0.7) k/uL Basophils # (0-0.2) k/uL NRBC/100 WBC Diff (0.0-0.0) /100 WBCS RBC Morphology Hypochromasia PT (9.0-12.0) sec INR (<1.2) APTT (22.0-30.0) sec Sodium (137-145) mmol/L Potassium (3.5-5.1) mmol/L Chloride (98-107) mmol/L Carbon Dioxide (22-30) mmol/L Anion Gap mmol/L BUN (7-17) mg/dL Creatinine (0.52-1.04) mg/dL Est GFR (CKD-EPI)AfAm (>60 ml/min/1.73 sqM) Est GFR (CKD-EPI)NonAf (>60 ml/min/1.73 sqM) BUN/Creatinine Ratio (12.00-20.00) Ratio Glucose (74-99) mg/dL POC Glucose (mg/dL) (75-99) mg/dL POC Glu Rigging Foreman ID Plasma Lactic Acid Lance 1.9 (0.7-2.0) mmol/L Calcium (8.4-10.2) mg/dL Phosphorus (2.5-4.5) mg/dL Magnesium (1.6-2.3) mg/dL Total Bilirubin (0.2-1.3) mg/dL AST (14-36) U/L ALT (4-34) U/L Alkaline Phosphatase (38-126) U/L Creatine Kinase (30-135) U/L Troponin I 0.024 (0.000-0.034) ng/mL NT-Pro-B Natriuret Pep pg/mL Total Protein (6.3-8.2) g/dL Albumin (3.5-5.0) g/dL Urine Color Yellow Urine Appearance Cloudy H (Clear) Urine pH 5.5 (5.0-8.0) Ur Specific [place] 1.020 (1.001-1.035) Urine Protein 1+ H (Negative) Urine Glucose (UA) 4+ H (Negative) Urine Ketones Negative (Negative) Urine Blood Large H (Negative) Urine Nitrite Negative (Negative) Urine Bilirubin Negative (Negative) Urine Urobilinogen <2.0 (<2.0) mg/dL Ur Leukocyte Esterase Large H (Negative) Urine RBC 164 H (0-5) /hpf Urine WBC 152 H (0-5) /hpf Ur Squamous Epith Cells 1 (0-4) /hpf Amorphous Sediment Rare H (None) /hpf Urine Bacteria Many H (None) /hpf Hyaline Casts 1 (0-2) /lpf Urine Mucus Rare H (None) /hpf Coronavirus (PCR) (Not Detectd) 11/10/20 11/10/20 11/10/20 Range/Units 04:48 15:05 19:33 WBC (3.8-10.6) k/uL RBC (3.80-5.40) m/uL Hgb (11.4-16.0) gm/dL Hct (34.0-46.0) % MCV (80.0-100.0) fL MCH (25.0-35.0) pg MCHC (31.0-37.0) g/dL RDW (11.5-15.5) % Plt Count (150-450) k/uL Plt Count Comment MPV Absolute Nucleated RBC (0.00-0.00) X 10*3/uL Neutrophils % % Lymphocytes % % Monocytes % % Eosinophils % % Basophils % % Neutrophils # (1.3-7.7) k/uL Lymphocytes # (1.0-4.8) k/uL Monocytes # (0-1.0) k/uL Eosinophils # (0-0.7) k/uL Basophils # (0-0.2) k/uL NRBC/100 WBC Diff (0.0-0.0) /100 WBCS RBC Morphology Hypochromasia PT (9.0-12.0) sec INR (<1.2) APTT (22.0-30.0) sec Sodium (137-145) mmol/L Potassium (3.5-5.1) mmol/L Chloride (98-107) mmol/L Carbon Dioxide (22-30) mmol/L Anion Gap mmol/L BUN (7-17) mg/dL Creatinine (0.52-1.04) mg/dL Est GFR (CKD-EPI)AfAm (>60 ml/min/1.73 sqM) Est GFR (CKD-EPI)NonAf (>60 ml/min/1.73 sqM) BUN/Creatinine Ratio (12.00-20.00) Ratio Glucose (74-99) mg/dL POC Glucose (mg/dL) 290 H 208 H (75-99) mg/dL POC Glu Rigging Foreman ID Buster Baig Ayesha Vianey Plasma Lactic Acid Lance (0.7-2.0) mmol/L Calcium (8.4-10.2) mg/dL Phosphorus (2.5-4.5) mg/dL Magnesium (1.6-2.3) mg/dL Total Bilirubin (0.2-1.3) mg/dL AST (14-36) U/L ALT (4-34) U/L Alkaline Phosphatase (38-126) U/L Creatine Kinase (30-135) U/L Troponin I (0.000-0.034) ng/mL NT-Pro-B Natriuret Pep pg/mL Total Protein (6.3-8.2) g/dL Albumin (3.5-5.0) g/dL Urine Color Urine Appearance (Clear) Urine pH (5.0-8.0) Ur Specific [place] (1.001-1.035) Urine Protein (Negative) Urine Glucose (UA) (Negative) Urine Ketones (Negative) Urine Blood (Negative) Urine Nitrite (Negative) Urine Bilirubin (Negative) Urine Urobilinogen (<2.0) mg/dL Ur Leukocyte Esterase (Negative) Urine RBC (0-5) /hpf Urine WBC (0-5) /hpf Ur Squamous Epith Cells (0-4) /hpf Amorphous Sediment (None) /hpf Urine Bacteria (None) /hpf Hyaline Casts (0-2) /lpf Urine Mucus (None) /hpf Coronavirus (PCR) Not Detected (Not Detectd) 11/10/20 11/11/20 11/11/20 Range/Units 21:18 00:13 05:26 WBC 25.35 H (3.8-10.6) k/uL RBC 3.49 L (3.80-5.40) m/uL Hgb 10.1 L (11.4-16.0) gm/dL Hct 35.0 L (34.0-46.0) % MCV 100.3 H (80.0-100.0) fL MCH 28.9 (25.0-35.0) pg MCHC 28.9 L (31.0-37.0) g/dL RDW 14.2 (11.5-15.5) % Plt Count 127 L (150-450) k/uL Plt Count Comment DECREASED A MPV 11.6 Absolute Nucleated RBC 0 (0.00-0.00) X 10*3/uL Neutrophils % % Lymphocytes % % Monocytes % % Eosinophils % % Basophils % % Neutrophils # (1.3-7.7) k/uL Lymphocytes # (1.0-4.8) k/uL Monocytes # (0-1.0) k/uL Eosinophils # (0-0.7) k/uL Basophils # (0-0.2) k/uL NRBC/100 WBC Diff 0 (0.0-0.0) /100 WBCS RBC Morphology NORMAL Hypochromasia PT (9.0-12.0) sec INR (<1.2) APTT (22.0-30.0) sec Sodium (137-145) mmol/L Potassium (3.5-5.1) mmol/L Chloride (98-107) mmol/L Carbon Dioxide (22-30) mmol/L Anion Gap mmol/L BUN (7-17) mg/dL Creatinine (0.52-1.04) mg/dL Est GFR (CKD-EPI)AfAm (>60 ml/min/1.73 sqM) Est GFR (CKD-EPI)NonAf (>60 ml/min/1.73 sqM) BUN/Creatinine Ratio (12.00-20.00) Ratio Glucose (74-99) mg/dL POC Glucose (mg/dL) 236 H 220 H (75-99) mg/dL POC Glu Rigging Foreman ID Davion Hodgesarah Clark Ramila Plasma Lactic Acid Lance (0.7-2.0) mmol/L Calcium (8.4-10.2) mg/dL Phosphorus (2.5-4.5) mg/dL Magnesium (1.6-2.3) mg/dL Total Bilirubin (0.2-1.3) mg/dL AST (14-36) U/L ALT (4-34) U/L Alkaline Phosphatase (38-126) U/L Creatine Kinase (30-135) U/L Troponin I (0.000-0.034) ng/mL NT-Pro-B Natriuret Pep pg/mL Total Protein (6.3-8.2) g/dL Albumin (3.5-5.0) g/dL Urine Color Urine Appearance (Clear) Urine pH (5.0-8.0) Ur Specific [place] (1.001-1.035) Urine Protein (Negative) Urine Glucose (UA) (Negative) Urine Ketones (Negative) Urine Blood (Negative) Urine Nitrite (Negative) Urine Bilirubin (Negative) Urine Urobilinogen (<2.0) mg/dL Ur Leukocyte Esterase (Negative) Urine RBC (0-5) /hpf Urine WBC (0-5) /hpf Ur Squamous Epith Cells (0-4) /hpf Amorphous Sediment (None) /hpf Urine Bacteria (None) /hpf Hyaline Casts (0-2) /lpf Urine Mucus (None) /hpf Coronavirus (PCR) (Not Detectd) 11/11/20 11/11/20 11/11/20 Range/Units 05:26 05:26 06:47 WBC (3.8-10.6) k/uL RBC (3.80-5.40) m/uL Hgb (11.4-16.0) gm/dL Hct (34.0-46.0) % MCV (80.0-100.0) fL MCH (25.0-35.0) pg MCHC (31.0-37.0) g/dL RDW (11.5-15.5) % Plt Count (150-450) k/uL Plt Count Comment MPV Absolute Nucleated RBC (0.00-0.00) X 10*3/uL Neutrophils % % Lymphocytes % % Monocytes % % Eosinophils % % Basophils % % Neutrophils # (1.3-7.7) k/uL Lymphocytes # (1.0-4.8) k/uL Monocytes # (0-1.0) k/uL Eosinophils # (0-0.7) k/uL Basophils # (0-0.2) k/uL NRBC/100 WBC Diff (0.0-0.0) /100 WBCS RBC Morphology Hypochromasia PT (9.0-12.0) sec INR (<1.2) APTT (22.0-30.0) sec Sodium 141 (137-145) mmol/L Potassium 3.9 (3.5-5.1) mmol/L Chloride 103 (98-107) mmol/L Carbon Dioxide 24.7 (22-30) mmol/L Anion Gap 13.30 H mmol/L BUN 36.0 H (7-17) mg/dL Creatinine 0.7 (0.52-1.04) mg/dL Est GFR (CKD-EPI)AfAm 96.9 (>60 ml/min/1.73 sqM) Est GFR (CKD-EPI)NonAf 83.6 (>60 ml/min/1.73 sqM) BUN/Creatinine Ratio 51.43 H (12.00-20.00) Ratio Glucose 86 (74-99) mg/dL POC Glucose (mg/dL) 91 (75-99) mg/dL POC Glu Rigging Foreman Missy Covington Plasma Lactic Acid Lance (0.7-2.0) mmol/L Calcium 8.2 L (8.4-10.2) mg/dL Phosphorus (2.5-4.5) mg/dL Magnesium (1.6-2.3) mg/dL Total Bilirubin (0.2-1.3) mg/dL AST (14-36) U/L ALT (4-34) U/L Alkaline Phosphatase (38-126) U/L Creatine Kinase (30-135) U/L Troponin I (0.000-0.034) ng/mL NT-Pro-B Natriuret Pep 943 pg/mL Total Protein (6.3-8.2) g/dL Albumin (3.5-5.0) g/dL Urine Color Urine Appearance (Clear) Urine pH (5.0-8.0) Ur Specific [place] (1.001-1.035) Urine Protein (Negative) Urine Glucose (UA) (Negative) Urine Ketones (Negative) Urine Blood (Negative) Urine Nitrite (Negative) Urine Bilirubin (Negative) Urine Urobilinogen (<2.0) mg/dL Ur Leukocyte Esterase (Negative) Urine RBC (0-5) /hpf Urine WBC (0-5) /hpf Ur Squamous Epith Cells (0-4) /hpf Amorphous Sediment (None) /hpf Urine Bacteria (None) /hpf Hyaline Casts (0-2) /lpf Urine Mucus (None) /hpf Coronavirus (PCR) (Not Detectd) - Radiology Data Radiology results: report reviewed (Chest x-rays negative for acute disease), image reviewed Disposition Clinical Impression: Acute exacerbation of chronic obstructive airways disease, Delirium due to general medical condition, Altered mental status, UTI (urinary tract infection) Disposition: ADMITTED IP TO THIS HOSP Condition: Fair Is patient prescribed a controlled substance at d/c from ED?: No
[2020-11-10 04:02] LABS: Basophils # (A) 0.1 k/uL (0-0.2); Basophils % (A) 0 %; Eosinophils % (A) 0 %; HCT 32.8 % (34.0-46.0); HGB 10.4 gm/dL (11.4-16.0); Hypochromasia Moderate; Lymphocytes # (A) 0.2 k/uL (1.0-4.8); Lymphocytes % (A) 1 %; MCH 29.5 pg (25.0-35.0); MCHC 31.8 g/dL (31.0-37.0); MCV 92.8 fL (80.0-100.0); Mean Platelet Volume 8.9; Monocytes # (A) 0.7 k/uL (0-1.0); Monocytes % (A) 3 %; Neutrophils # (A) 24.8 k/uL (1.3-7.7); Neutrophils % (A) 95 %; RBC 3.53 m/uL (3.80-5.40)
[2020-11-10 04:22] LABS: Albumin 2.5 g/dL (3.5-5.0); Calcium 8.8 mg/dL (8.4-10.2); Magnesium 2.1 mg/dL (1.6-2.3); Phosphorus 2.2 mg/dL (2.5-4.5); Potassium 4.1 mmol/L (3.5-5.1); Total Bilirubin 0.3 mg/dL (0.2-1.3)
[2020-11-10 04:30] LABS: Platelet Count 101 k/uL (150-450)
[2020-11-10 04:43] LABS: INR 0.8 (<1.2); Prothrombin Time 9.4 sec (9.0-12.0)
[2020-11-10] MEDS ORDERED: NALOXONE 0.4 MG/ML 1 ML VIAL IV PRN (05:03)
[2020-11-10 05:06] LABS: Amorphous Sediment,Urine Rare /hpf; Appearance,Urine Cloudy (Clear); Bacteria,Urine Many /hpf; Bilirubin,Urine Negative (Negative); Blood,Urine Large (Negative); Color,Urine Yellow; Glucose,Urine (UA) 4+ (Negative); Hyaline Casts,Urine 1 /lpf (0-2); Ketones,Urine Negative (Negative); Leukocyte Esterase,Urine Large (Negative); Mucus,Urine Rare /hpf; Nitrite,Urine Negative (Negative); PH, Urine 5.5 (5.0-8.0); Protein,Urine 1+ (Negative); RBC,Urine 164 /hpf (0-5); Squamous Epithelial Cell,Urine 1 /hpf (0-4); Urobilinogen,Urine <2.0 mg/dL (<2.0); WBC,Urine 152 /hpf (0-5)
--- NOTE | 2020-11-10 05:41 | XR ---
EXAM: XR Chest, 1 View CLINICAL HISTORY: Chest pain TECHNIQUE: Frontal view of the chest. COMPARISON: October 25, 2020 FINDINGS: Lungs: Unremarkable. No acute infiltration, atelectasis or mass. Pleural space: Unremarkable. No pneumothorax or pleural fluid. Heart: Unremarkable. No cardiomegaly. Mediastinum: Unremarkable. Bones/joints: No acute findings. IMPRESSION: No acute findings in the chest.
[2020-11-10] MEDS ORDERED: IPRATROPIUM-ALBUTEROL 3 ML NEB INHALATION PRN (11:16)
[2020-11-10] MEDS ORDERED: KETOROLAC 0.5% OPHTH DROPS 5 ML BTL BOTH EYES PRN (11:16)
[2020-11-10] MEDS ORDERED: predniSONE 10 MG TAB PO ONE (12:00)
[2020-11-10] MEDS: IPRATROPIUM-ALBUTEROL 3 ML NEB INHALATION SCH ×3 (12:18→19:19)
[2020-11-10] MEDS: ASPIRIN 325 MG TAB PO SCH (12:29)
[2020-11-10] MEDS: SODIUM CHLORIDE 0.9% 1,000 ML IV SCH (12:30)
--- NOTE | 2020-11-10 14:16 | P.HPIM ---
History of Present Illness Patient is on-year-old female alert oriented 1 came in with altered mental status patient lives with her and the son. Patient is able to void with fairly good history but definitely confused. Patient is sleepy. Patient do esn't have any fever chills denied any dysuria denied any suprapubic pain. Chest x-ray is within normal limits patient has leukocytosis with white blood cell count or going up to 26,000. He was admitted for urinary tract infection patient was started on Rocephin. Patient has a superficial wound stage II just below the knee on the medial aspect. This doesn't appear to be infected patient is hyponatremic clinically appears to be dehydrated as well. Patient is receiving IV fluids at this time. She and is on [place] of oxygen patient states she does use oxygen at home but can't tell me how many liters she uses Review of Systems Rest of the review of systems are negative except those mentioned above Past Medical History Past Medical History: Chest Pain / Angina, Heart Failure, COPD, Diabetes Mellitus, Hypertension, Osteoarthritis (OA), Respiratory Disorder, Thyroid Disorder, Vascular Disorder Additional Past Medical History / Comment(s): Pt recently admitted to [facility] on 10/23/20 with acute exacerbation chronic COPD, acute on chronic hypoxic hypercarbic respiratory failure, acute purulent tracheobronchitis, possible new onset diabetes, hyponatremia/hypovolemic, hyperkalemia, severe constipat ion/obstipation. Other hx: Advanced COPD, chronic hypoxic respiratory failure, home oxygen, 2010 pericarditis, former smoker, hypothyroidism, skeletal chest wall pain, chronic anxiety, anemia, PVD, past leg and foot wounds, recent L distal radius fracture/L knee wound sutures since removed, gout, confused at times per spouse and recently has been bedbound. History of Any Multi-Drug Resistant Organisms: None Reported Past Surgical History: Heart Catheterization, Hysterectomy, Tubal Ligation Additional Past Surgical History / Comment(s): 2011 cardiac cath, 2013 cardiac angiogram, colonoscopy/benign polypectomy, anal fistula repair, bilateral cataract removals/lens implants. Past Anesthesia/Blood Transfusion Reactions: Previous Problems w/ Anesthesia, Postoperative Nausea & Vomiting (PONV) Additional Past Anesthesia/Blood Transfusion Reaction / Comment(s): oxygen was "low" post op, nausea one time Smoking Status: Former smoker - Past Family History Mother History Unknown: Yes Family Medical History: Cancer, Thyroid Disorder Additional Family Medical History / Comment(s): Liver Cancer Father History Unknown: Yes Family Medical History: Cancer Medications and Allergies Home Medications Medication Instructions Recorded Confirmed Type Budesonide-Formot 160-4.5 Mcg 2 puff INHALATION RT-BID #1 vial 12/05/18 11/10/20 Rx [Symbicort 160-4.5 Mcg Inhaler] Levothyroxine Sodium [Synthroid] 150 mcg PO DAILY #30 tablet 12/05/18 11/10/20 Rx Albuterol Sulfate [Proair Hfa] 2 puff INHALATION RT-QID PRN 09/25/20 11/10/20 History Aspirin 325 mg PO Q48H 09/25/20 11/10/20 History Fluticasone/Salmeterol [Advair 1 puff INHALATION RT-BID 10/23/20 11/10/20 History 250-50 Diskus] Ketorolac 0.5% Ophth Soln [Acular 1 drop BOTH EYES QID PRN 10/23/20 11/10/20 History 0.5%] Loratadine [Claritin] 10 mg PO DAILY 10/23/20 11/10/20 History Docusate [Colace] 100 mg PO BID 30 Days #60 cap 10/29/20 11/10/20 Rx Insulin Detemir (Levemir) [Levemir] 15 unit SQ HS 30 Days #4 syr 10/29/20 11/10/20 Rx Ipratropium-Albuterol Nebulize 3 ml INHALATION RT-Q4H PRN ml 10/29/20 11/10/20 Rx [Duoneb 0.5 mg-3 mg/3 ml Soln] Ipratropium-Albuterol Nebulize 3 ml INHALATION RT-QID 30 Days 10/29/20 11/10/20 Rx [Duoneb 0.5 mg-3 mg/3 ml Soln] #120 ml Nicotine 21Mg/24Hr Patch [Habitrol] 1 patch TRANSDERM DAILY #20 patch 10/29/20 11/10/20 Rx lisinopriL [Zestril] 10 mg PO DAILY #30 tab 10/29/20 11/10/20 Rx INSULIN ASPART (NovoLOG) [NovoLOG See Protocol SQ ACHS 11/10/20 11/10/20 History (formulary)] predniSONE See Taper PO DIRECTED 11/10/20 11/10/20 History Allergies Allergy/AdvReac Type Severity Reaction Status Date / Time bacitracin Allergy Rash/Hives Verified 11/10/20 07:03 [From Neosporin ([id number])] neomycin Allergy Rash/Hives Verified 11/10/20 07:03 [From Neosporin ([id number])] Penicillins Allergy Rash/Hives Verified 11/10/20 07:03 polymyxin B Allergy Rash/Hives Verified 11/10/20 07:03 [From Neosporin ([id number])] trimethoprim [From Polytrim] Allergy Rash/Hives Verified 11/10/20 07:03 levofloxacin [From Levaquin] AdvReac WEAKNESS Verified 11/10/20 07:03 ELDA/POLY/DEX Allergy Rash/Hives Uncoded 11/10/20 07:03 Physical Exam Vitals: Vital Signs Temp Pulse Resp BP Pulse Ox 11/10/20 12:27 95 11/10/20 12:23 98.7 F 87 20 106/65 98 11/10/20 12:18 90 11/10/20 10:15 110 H 20 106/65 100 11/10/20 07:38 98.4 F 116 H 22 106/65 95 11/10/20 04:48 72 18 108/69 93 L 11/10/20 03:44 101 H 17 119/74 97 11/10/20 02:49 99 F 112 H 20 108/64 99 Intake and Output 11/09/20 11/10/20 11/10/20 22:59 06:59 14:59 Other: Weight 54.431 kg 54.431 kg PHYSICAL EXAMINATION: GENERAL: The patient is drowsy oriented 1, not in any acute distress. Well developed, well nourished. HEENT: Pupils are round and equally reacting to light. EOMI. No scleral icterus. No conjunctival pallor. Normocephalic, atraumatic. No pharyngeal erythema. No thyromegaly. Dry skin and mucous membranes CARDIOVASCULAR: S1 and S2 present. No murmurs, rubs, or gallops. PULMONARY: Chest is clear to auscultation, no wheezing or crackles. ABDOMEN: Soft, nontender, nondistended, normoactive bowel sounds. No palpable organomegaly. MUSCULOSKELETAL: No joint swelling or deformity. EXTREMITIES: No cyanosis, clubbing, or pedal edema. NEUROLOGICAL: Doesn't appear to have any focal deficits moving all 4 limbs although oriented times only 1 SKIN: Superficial stage II ulcer which doesn't appear to be infected on the left leg below the knee medial aspect Results CBC & Chem 7: 11/10/20 03:44 11/10/20 03:44 Labs: Abnormal Lab Results - Last 24 Hours (Table) 11/10/20 11/10/20 11/10/20 Range/Units 03:44 03:44 03:44 WBC 26.0 H (3.8-10.6) k/uL RBC 3.53 L (3.80-5.40) m/uL Hgb 10.4 L (11.4-16.0) gm/dL Hct 32.8 L (34.0-46.0) % Plt Count 101 L D (150-450) k/uL Neutrophils # 24.8 H (1.3-7.7) k/uL Lymphocytes # 0.2 L (1.0-4.8) k/uL APTT 20.0 L (22.0-30.0) sec Sodium 130 L (137-145) mmol/L Chloride 95 L (98-107) mmol/L Carbon Dioxide 32 H (22-30) mmol/L BUN 36 H (7-17) mg/dL Glucose 337 H (74-99) mg/dL Phosphorus 2.2 L (2.5-4.5) mg/dL Alkaline Phosphatase 192 H (38-126) U/L Creatine Kinase 25 L (30-135) U/L Total Protein 5.0 L (6.3-8.2) g/dL Albumin 2.5 L (3.5-5.0) g/dL Urine Appearance (Clear) Urine Protein (Negative) Urine Glucose (UA) (Negative) Urine Blood (Negative) Ur Leukocyte Esterase (Negative) Urine RBC (0-5) /hpf Urine WBC (0-5) /hpf Amorphous Sediment (None) /hpf Urine Bacteria (None) /hpf Urine Mucus (None) /hpf 11/10/20 Range/Units 04:48 WBC (3.8-10.6) k/uL RBC (3.80-5.40) m/uL Hgb (11.4-16.0) gm/dL Hct (34.0-46.0) % Plt Count (150-450) k/uL Neutrophils # (1.3-7.7) k/uL Lymphocytes # (1.0-4.8) k/uL APTT (22.0-30.0) sec Sodium (137-145) mmol/L Chloride (98-107) mmol/L Carbon Dioxide (22-30) mmol/L BUN (7-17) mg/dL Glucose (74-99) mg/dL Phosphorus (2.5-4.5) mg/dL Alkaline Phosphatase (38-126) U/L Creatine Kinase (30-135) U/L Total Protein (6.3-8.2) g/dL Albumin (3.5-5.0) g/dL Urine Appearance Cloudy H (Clear) Urine Protein 1+ H (Negative) Urine Glucose (UA) 4+ H (Negative) Urine Blood Large H (Negative) Ur Leukocyte Esterase Large H (Negative) Urine RBC 164 H (0-5) /hpf Urine WBC 152 H (0-5) /hpf Amorphous Sediment Rare H (None) /hpf Urine Bacteria Many H (None) /hpf Urine Mucus Rare H (None) /hpf Microbiology - Last 24 Hours (Table) 11/10/20 04:48 Urine Culture - Preliminary Urine,Voided Thrombosis Risk Factor Assmnt - Choose All That Apply Each Factor Represents 1 point: Abnormal pulmonary function (COPD) Other Risk Factors: Yes Each Risk Factor Represents 3 Points: Age 75 years or older Other congenital or acquired thrombophilia - If yes, enter type in comment: No Thrombosis Risk Factor Assessment Total Risk Factor Score: 4 Thrombosis Risk Factor Assessment Level: Moderate Risk Assessment and Plan Plan: Altered mental status most probably send her to toxic encephalopathy can be urinary tract infection patient will be continued on Rocephin 2 g. -Dehydration and hypovolemic hyponatremia and patient will be continued on IV fluids -Type 2 diabetes mellitus uncontrolled elevated blood sugars patient will be st arted on sliding scale along with his 15 units of insulin 5 leukocytosis probably similar to sepsis from urinary tract infection -Hypertension -Hyperthyroidism asked and-peripheral vascular disease -COPD without any acute exacerbation -Chronic hypoxic and hypercapnic respiratory failure secondary to COPD -Anxiety disorder -DVT prophylaxis with Lovenox
--- NOTE | 2020-11-10 14:21 | P.CNPUL ---
History of Present Illness Consult date: 11/10/20 Chief complaint: Altered mental status History of present illness: 75-year-old female patient, very much debilitated due to her advanced lung dis ease and COPD, well-known to me and I have taken care of this patient during her recent hospitalization when she came in with acute COPD exacerbation acute hypoxic and hypercapnic respiratory failure. She is typically on oxygen at home. She is a chronic smoker. She came into the emergency room because of altered mentation. Further investigation in the emergency yielded that the patient was having an underlying urine checked infection. UA was abnormal with elevated white cells. COVID-19 testing was negative. The patient +1 protein and +4 glucose and her urine. Rest of the blood work showed a troponin of 0.02. The patient's white cell count was elevated at 26 with a platelet count dropped down to 101 with a hemoglobin of 10.4. Correlation profile was normal. Serum bicarb was 32 with a BUN of 36 and a creatinine of 0.7. LFTs were normal. Albumin was low at 2.5. Blood sugar was 337. Chest x-ray was consistent with COPD there was no evidence of any airspace disease. The patient was given a total of 3 L of IV fluids in the emergency pH is currently producing some urine output. No hypotension. She was given a gram of Rocephin in the emergency department. Her current level of alertness is improved. She is able to answer some simple questions. She is unable to hold long conversations. She is extensive debilitated. She has history of falls. She has history of fractures secondary to falls. She may need assistance for activities of daily today life. She is edentulous. No reported aspiration. She is able to move all 4 extremities. No seizure activity. No neck stiffness. She is currently afebrile and she is hemodynamically Review of Systems Constitutional: Denies chills, Denies fever looks a very poor physical status, a poor historian. Unable to provide detailed history. She follows only some sim ple commands and answer simple questions. No signs of any respiratory distress at this point in time. Eyes: denies blurred vision, denies pain Ears, nose, mouth and throat: Denies headache, Denies sore throat Cardiovascular: Denies chest pain, Denies shortness of breath Respiratory: Reports cough with sputum, Reports dyspnea, Reports home oxygen, Reports wheezing, Denies cough Gastrointestinal: Denies abdominal pain, Denies diarrhea, Denies nausea, Denies vomiting Genitourinary: Denies dysuria, Denies hematuria Musculoskeletal: Denies myalgias, a cast in the left upper extremity Integumentary: Denies pruritus, Denies rash, areas of skin laceration in the left foot and areas of skin abrasion related to a fall. Neurological: Denies numbness, generalized weakness and altered mentation time of admission currently she is able to answer questions and these are simple and the direct questions. Psychiatric: Denies anxiety, Denies depression Endocrine: Denies fatigue, Denies weight change Past Medical History Past Medical History: Heart Failure, COPD, Diabetes Mellitus, Hypertension, Osteoarthritis (OA), Respiratory Disorder, Thyroid Disorder, Vascular Disorder Additional Past Medical History / Comment(s): Pt recently admitted to [facility] on 10/23/20 with acute exacerbation chronic COPD, acute on chronic hypoxic hypercarbic respiratory failure, acute purulent tracheobronchitis, possible new onset diabetes, hyponatremia/hypovolemic, hyperkalemia, severe constipation/obstipation. Other hx: Advanced COPD, chronic hypoxic respiratory failure, home oxygen, 2010 pericarditis, former smoker, hypothyroidism, skeletal chest wall pain, chronic anxiety, anemia, PVD, past leg and foot wounds, recent L distal radius fracture/L knee wound sutures since removed, gout, confused at times per spouse and recently has been bedbound. History of Any Multi-Drug Resistant Organisms: None Reported Past Surgical History: Heart Catheterization, Hysterectomy, Tubal Ligation Additional Past Surgical History / Comment(s): 2011 cardiac cath, 2013 cardiac angiogram, colonoscopy/benign polypectomy, anal fistula repair, bilateral cataract removals/lens implants. Past Anesthesia/Blood Transfusion Reactions: Previous Problems w/ Anesthesia, Postoperative Nausea & Vomiting (PONV) Additional Past Anesthesia/Blood Transfusion Reaction / Comment(s): oxygen was "low" post op, nausea one time Smoking Status: Former smoker - Past Family History Mother History Unknown: Yes Family Medical History: Cancer, Thyroid Disorder Additional Family Medical History / Comment(s): Liver Cancer Father History Unknown: Yes Family Medical History: Cancer Medications and Allergies Home Medications Medication Instructions Recorded Confirmed Type Budesonide-Formot 160-4.5 Mcg 2 puff INHALATION RT-BID #1 vial 12/05/18 11/10/20 Rx [Symbicort 160-4.5 Mcg Inhaler] Levothyroxine Sodium [Synthroid] 150 mcg PO DAILY #30 tablet 12/05/18 11/10/20 Rx Albuterol Sulfate [Proair Hfa] 2 puff INHALATION RT-QID PRN 09/25/20 11/10/20 History Aspirin 325 mg PO Q48H 09/25/20 11/10/20 History Fluticasone/Salmeterol [Advair 1 puff INHALATION RT-BID 10/23/20 11/10/20 History 250-50 Diskus] Ketorolac 0.5% Ophth Soln [Acular 1 drop BOTH EYES QID PRN 10/23/20 11/10/20 History 0.5%] Loratadine [Claritin] 10 mg PO DAILY 10/23/20 11/10/20 History Docusate [Colace] 100 mg PO BID 30 Days #60 cap 10/29/20 11/10/20 Rx Insulin Detemir (Levemir) [Levemir] 15 unit SQ HS 30 Days #4 syr 10/29/20 11/10/20 Rx Ipratropium-Albuterol Nebulize 3 ml INHALATION RT-Q4H PRN ml 10/29/20 11/10/20 Rx [Duoneb 0.5 mg-3 mg/3 ml Soln] Ipratropium-Albuterol Nebulize 3 ml INHALATION RT-QID 30 Days 10/29/20 11/10/20 Rx [Duoneb 0.5 mg-3 mg/3 ml Soln] #120 ml Nicotine 21Mg/24Hr Patch [Habitrol] 1 patch TRANSDERM DAILY #20 patch 10/29/20 11/10/20 Rx lisinopriL [Zestril] 10 mg PO DAILY #30 tab 10/29/20 11/10/20 Rx INSULIN ASPART (NovoLOG) [NovoLOG See Protocol SQ ACHS 11/10/20 11/10/20 History (formulary)] predniSONE See Taper PO DIRECTED 11/10/20 11/10/20 History Allergies Allergy/AdvReac Type Severity Reaction Status Date / Time bacitracin Allergy Rash/Hives Verified 11/10/20 07:03 [From Neosporin ([id number])] neomycin Allergy Rash/Hives Verified 11/10/20 07:03 [From Neosporin ([id number])] Penicillins Allergy Rash/Hives Verified 11/10/20 07:03 polymyxin B Allergy Rash/Hives Verified 11/10/20 07:03 [From Neosporin ([id number])] trimethoprim [From Polytrim] Allergy Rash/Hives Verified 11/10/20 07:03 levofloxacin [From Levaquin] AdvReac WEAKNESS Verified 11/10/20 07:03 ELDA/POLY/DEX Allergy Rash/Hives Uncoded 11/10/20 07:03 Physical Exam Vitals: Vital Signs Temp Pulse Resp BP Pulse Ox 11/10/20 14:07 92 22 96/54 97 11/10/20 12:27 95 11/10/20 12:23 98.7 F 87 20 106/65 98 11/10/20 12:18 90 11/10/20 10:15 110 H 20 106/65 100 11/10/20 07:38 98.4 F 116 H 22 106/65 95 11/10/20 04:48 72 18 108/69 93 L 11/10/20 03:44 101 H 17 119/74 97 11/10/20 02:49 99 F 112 H 20 108/64 99 Intake and Output 11/09/20 11/10/20 11/10/20 22:59 06:59 14:59 Other: Weight 54.431 kg 54.431 kg GENERAL EXAM: Alert, pleasant, 73-year-old white female, 4 L of oxygen with a pulse ox of 99% comfortable in no apparent distress. HEAD: Normocephalic/atraumatic. EYES: Normal reaction of pupils, equal size. Conjunctiva pink, sclera white. NOSE: Clear with pink turbinates. THROAT: No erythema or exudates. NECK: No masses, no JVD, no thyroid enlargement, no adenopathy. CHEST: No chest wall deformity. Symmetrical expansion. LUNGS: Equal air entry with diminished breath sounds. CVS: Regular rate and rhythm, normal S1 and S2, no gallops, no murmurs, no rubs ABDOMEN: Soft, nontender. No hepatosplenomegaly, normal bowel sounds, no g uarding or rigidity. EXTREMITIES: No clubbing, no edema, no cyanosis, 2+ pulses and upper and lower extremities. MUSCULOSKELETAL: Muscle strength and tone normal. SPINE: No scoliosis or deformity SKIN: No rashes CENTRAL NERVOUS SYSTEM: Alert and oriented -3. No focal deficits, tone is normal in all 4 extremities. Has improved and the patient is communicating and following some simple commands and answering questions. PSYCHIATRIC: Alert and oriented -3. Appropriate affect. Impaired judgment and insight. Results - Laboratory Findings CBC and BMP: 11/10/20 03:44 11/10/20 03:44 PT/INR, D-dimer PT 9.4 sec (9.0-12.0) 11/10/20 03:44 INR 0.8 (<1.2) 11/10/20 03:44 Abnormal lab findings: Abnormal Labs 11/10/20 11/10/20 11/10/20 03:44 03:44 03:44 WBC 26.0 H RBC 3.53 L Hgb 10.4 L Hct 32.8 L Plt Count 101 L D Neutrophils # 24.8 H Lymphocytes # 0.2 L APTT 20.0 L Sodium 130 L Chloride 95 L Carbon Dioxide 32 H BUN 36 H Glucose 337 H Phosphorus 2.2 L Alkaline Phosphatase 192 H Creatine Kinase 25 L Total Protein 5.0 L Albumin 2.5 L Urine Appearance Urine Protein Urine Glucose (UA) Urine Blood Ur Leukocyte Esterase Urine RBC Urine WBC Amorphous Sediment Urine Bacteria Urine Mucus 11/10/20 04:48 WBC RBC Hgb Hct Plt Count Neutrophils # Lymphocytes # APTT Sodium Chloride Carbon Dioxide BUN Glucose Phosphorus Alkaline Phosphatase Creatine Kinase Total Protein Albumin Urine Appearance Cloudy H Urine Protein 1+ H Urine Glucose (UA) 4+ H Urine Blood Large H Ur Leukocyte Esterase Large H Urine RBC 164 H Urine WBC 152 H Amorphous Sediment Rare H Urine Bacteria Many H Urine Mucus Rare H - Diagnostic Findings Chest x-ray: image reviewed Assessment and Plan Plan: #1. Altered mental status secondary to an underlying urine tract infection. Patient is currently in the hospital, admitted and the patient is being treated with a combination of IV fluids and antibiotics. UA was no evidence was quite abnormal. Awaiting final results of the cultures. #2. The patient has advanced and end-stage COPD with chronic hypoxemic and hypercapnic respiratory failure related to advanced COPD, stage IV, with baseline FEV1 of 28% of predicted, oxygen at 4 L of O2 by nasal cannula. #3. Chronic and ongoing nicotine dependence, currently down to 2 cigarettes a day #4. Hypertension #5. Osteoarthritis #6. Hypothyroidism #7. Anxiety #8 frequent falls, for now the patient is bedbound #9 fracture in the left upper extremity status post removal of the casts #10 multiple areas of skin laceration largest in the left upper lower extremity, healed Plan IV fluids with normal saline at the rate of 100 mL an hour. The patient already received a total of 3 L IV fluid as bolus. IV Rocephin 1 g every 24 hours Oxygen by nasal cannula at 3 L DuoNeb the less treatments around the clock COVID-19 testing by PCR was negative nicotine patch Sliding-scale insulin coverage with NovoLog and will start the patient on Levemir 15 units at bedtime and monitor the blood sugar control. Would use insulin drip if needed. Lovenox for DVT prophylaxis She is more awake and alert and there is no signs of CO2 narcosis. We'll continue to follow.
[2020-11-10 15:06] LABS: Glucose,Whole Blood 290 mg/dL (75-99)
[2020-11-10] MEDS: INSULIN ASPART (NovoLOG) 100 UNIT/ML VIAL SQ SCH (17:04)
[2020-11-10] MEDS: SYMBICORT 160-4.5 MCG INHALER INHALATION SCH (19:19)
[2020-11-10 19:34] LABS: Glucose,Whole Blood 208 mg/dL (75-99)
[2020-11-10 21:21] LABS: Glucose,Whole Blood 236 mg/dL (75-99)
[2020-11-11] MEDS: SODIUM CHLORIDE 0.9% 1,000 ML IV SCH ×3 (00:17→11:39)
[2020-11-11] MEDS: FAMOTIDINE 20 MG TAB PO SCH ×3 (00:17→22:46)
[2020-11-11] MEDS: INSULIN DETEMIR (LEVEMIR) 100 UNIT/ML SYR SQ SCH ×2 (00:18→22:40)
[2020-11-11] MEDS: DOCUSATE 100 MG CAP PO SCH ×3 (00:18→22:46)
[2020-11-11] MEDS: INSULIN ASPART (NovoLOG) 100 UNIT/ML VIAL SQ SCH ×5 (00:18→22:40)
[2020-11-11 00:25] LABS: Glucose,Whole Blood 220 mg/dL (75-99)
[2020-11-11] MEDS: LEVOTHYROXINE 75 MCG TAB PO SCH (06:04)
[2020-11-11 06:48] LABS: Glucose,Whole Blood 91 mg/dL (75-99)
[2020-11-11] MEDS: LORATADINE 10 MG TAB PO SCH (08:17)
[2020-11-11] MEDS: NICOTINE 21MG/24HR PATCH TRANSDERM SCH (08:18)
[2020-11-11] MEDS ORDERED: ENOXAPARIN 30 MG/0.3 ML SYRINGE SQ SCH (09:00)
[2020-11-11] MEDS: SYMBICORT 160-4.5 MCG INHALER INHALATION SCH ×2 (09:10→20:11)
[2020-11-11] MEDS: IPRATROPIUM-ALBUTEROL 3 ML NEB INHALATION SCH ×4 (09:10→20:11)
--- NOTE | 2020-11-11 10:39 | P.CONS ---
History of Present Illness - Reason for Consult Consult date: 11/11/20 wound care - History of Present Illness This is a 75-year-old patient being seen on 4 S. for nonhealing ulceration to the left lateral knee cluster of 2. Patient has poor historian unable to answer questions. Ulceration is a nonhealing ulceration with fatty layer exposure to the lateral left knee cluster of 2. Significant amount of nonviable tissue and slough noted. Minimal granulation. Minimal serous drainage noted. Periwound shows dryness and scaling. Patient's past medical history significant for her failure, COPD, diabetes, hypertension, hypothyroid, vascular disease. Patient is a former smoker. Started smoking in 1960 and just recently quit. Review of system: Unable to obtain due to mental status Physical exam: General Appearance: Alert, cooperative, no distress, appears stated age. Skin: See HPI all other Skin color, texture, tugor normal, no rashes or lesions. Neurologic: Alert oriented x1 Assessment: 1. Nonhealing ulceration to left lateral lower extremity with fat layer exposure 2. Diabetes a skin ulcer Plan: 1. Apply honey alginate, saline moistened gauze, dry gauze, rolled gauze s ecured with paper tape. Change Tuesday. Patient would benefit from continued advanced wound care. We will be happy to see her in the wound care center upon discharge. Thank you for the consultation any questions please contact the wound care center DNP note has been reviewed and discussed with Dr. Workman and the impression and plan of care has been directed as dictated. Past Medical History Past Medical History: Heart Failure, COPD, Diabetes Mellitus, Hypertension, Osteoarthritis (OA), Respiratory Disorder, Thyroid Disorder, Vascular Disorder Additional Past Medical History / Comment(s): Pt recently admitted to [facility] on 10/23/20 with acute exacerbation chronic COPD, acute on chronic hypoxic hypercarbic respiratory failure, acute purulent tracheobronchitis, possible new onset diabetes, hyponatremia/hypovolemic, hyperkalemia, severe constipation/obstipation. Other hx: Advanced COPD, chronic hypoxic respiratory failure, home oxygen, 2010 pericarditis, former smoker, hypothyroidism, skeletal chest wall pain, chronic anxiety, anemia, PVD, past leg and foot wounds, recent L distal radius fracture/L knee wound sutures since removed, gout, confused at times per spouse and recently has been bedbound. History of Any Multi-Drug Resistant Organisms: None Reported Past Surgical History: Heart Catheterization, Hysterectomy, Tubal Ligation Additional Past Surgical History / Comment(s): 2011 cardiac cath, 2013 cardiac angiogram, colonoscopy/benign polypectomy, anal fistula repair, bilateral cataract removals/lens implants. Past Anesthesia/Blood Transfusion Reactions: Previous Problems w/ Anesthesia, Postoperative Nausea & Vomiting (PONV) Additional Past Anesthesia/Blood Transfusion Reaction / Comm: oxygen was "low" post op, nausea one time Smoking Status: Former smoker - Past Family History Mother History Unknown: Yes Family Medical History: Cancer, Thyroid Disorder Additional Family Medical History / Comment(s): Liver Cancer Father History Unknown: Yes Family Medical History: Cancer Medications and Allergies Home Medications Medication Instructions Recorded Confirmed Type Budesonide-Formot 160-4.5 Mcg 2 puff INHALATION RT-BID #1 vial 12/05/18 11/10/20 Rx [Symbicort 160-4.5 Mcg Inhaler] Levothyroxine Sodium [Synthroid] 150 mcg PO DAILY #30 tablet 12/05/18 11/10/20 Rx Albuterol Sulfate [Proair Hfa] 2 puff INHALATION RT-QID PRN 09/25/20 11/10/20 History Aspirin 325 mg PO Q48H 09/25/20 11/10/20 History Fluticasone/Salmeterol [Advair 1 puff INHALATION RT-BID 10/23/20 11/10/20 History 250-50 Diskus] Ketorolac 0.5% Ophth Soln [Acular 1 drop BOTH EYES QID PRN 10/23/20 11/10/20 History 0.5%] Loratadine [Claritin] 10 mg PO DAILY 10/23/20 11/10/20 History Docusate [Colace] 100 mg PO BID 30 Days #60 cap 10/29/20 11/10/20 Rx Insulin Detemir (Levemir) [Levemir] 15 unit SQ HS 30 Days #4 syr 10/29/20 11/10/20 Rx Ipratropium-Albuterol Nebulize 3 ml INHALATION RT-Q4H PRN ml 10/29/20 11/10/20 Rx [Duoneb 0.5 mg-3 mg/3 ml Soln] Ipratropium-Albuterol Nebulize 3 ml INHALATION RT-QID 30 Days 10/29/20 11/10/20 Rx [Duoneb 0.5 mg-3 mg/3 ml Soln] #120 ml Nicotine 21Mg/24Hr Patch [Habitrol] 1 patch TRANSDERM DAILY #20 patch 10/29/20 11/10/20 Rx lisinopriL [Zestril] 10 mg PO DAILY #30 tab 10/29/20 11/10/20 Rx INSULIN ASPART (NovoLOG) [NovoLOG See Protocol SQ ACHS 11/10/20 11/10/20 History (formulary)] predniSONE See Taper PO DIRECTED 11/10/20 11/10/20 History Allergies Allergy/AdvReac Type Severity Reaction Status Date / Time bacitracin Allergy Rash/Hives Verified 11/10/20 07:03 [From Neosporin ([id number])] neomycin Allergy Rash/Hives Verified 11/10/20 07:03 [From Neosporin ([id number])] Penicillins Allergy Rash/Hives Verified 11/10/20 07:03 polymyxin B Allergy Rash/Hives Verified 11/10/20 07:03 [From Neosporin ([id number])] trimethoprim [From Polytrim] Allergy Rash/Hives Verified 11/10/20 07:03 levofloxacin [From Levaquin] AdvReac WEAKNESS Verified 11/10/20 07:03 ELDA/POLY/DEX Allergy Rash/Hives Uncoded 11/10/20 07:03 Physical Exam Vitals: Vital Signs Temp Pulse Pulse Pulse Resp BP BP 11/11/20 09:23 114 H 11/11/20 09:12 110 H 11/11/20 07:58 98.2 F 90 17 96/55 11/11/20 04:16 92 11/11/20 04:03 88 11/11/20 03:02 98.5 F 88 15 95/61 11/10/20 19:37 98.6 F 90 15 94/60 11/10/20 19:32 90 11/10/20 19:20 90 11/10/20 18:00 98 F 95 19 99/64 11/10/20 17:06 98.4 F 88 22 104/58 11/10/20 15:16 93 11/10/20 15:09 92 11/10/20 15:06 92 20 94/63 11/10/20 14:07 92 22 96/54 11/10/20 12:27 95 11/10/20 12:23 98.7 F 87 20 106/65 11/10/20 12:18 90 Pulse Ox 11/11/20 09:23 11/11/20 09:12 11/11/20 07:58 100 11/11/20 04:16 11/11/20 04:03 11/11/20 03:02 98 11/10/20 19:37 99 11/10/20 19:32 11/10/20 19:20 11/10/20 18:00 95 11/10/20 17:06 100 11/10/20 15:16 11/10/20 15:09 11/10/20 15:06 97 11/10/20 14:07 97 11/10/20 12:27 11/10/20 12:23 98 11/10/20 12:18 Intake and Output 11/10/20 11/11/20 11/11/20 22:59 06:59 14:59 Intake Total 200 Balance 200 Intake: Oral 200 Other: Voiding Method External Catheter # Voids 1 Results CBC & Chem 7: 11/10/20 03:44 11/10/20 03:44 Labs: Abnormal Lab Results - Last 24 Hours (Table) 11/10/20 11/10/20 11/10/20 Range/Units 15:05 19:33 21:18 POC Glucose (mg/dL) 290 H 208 H 236 H (75-99) mg/dL 11/11/20 Range/Units 00:13 POC Glucose (mg/dL) 220 H (75-99) mg/dL Microbiology - Last 24 Hours (Table) 11/10/20 04:48 Urine Culture - Preliminary Urine,Voided Assessment and Plan (1) Nonhealing ulcer of left lower extremity with fat layer exposed Current Visit: Yes Status: Acute Code(s): L97.922 - NON-PRS CHR ULC UNSP PRT OF L LOW LEG W FAT LAYER EXPOSED SNOMED Code(s): 00301414 (2) Diabetes with skin ulcer Current Visit: Yes Status: Acute Code(s): E11.622 - TYPE 2 DIABETES MELLITUS WITH OTHER SKIN ULCER; L98.499 - NON-PRESSURE CHRONIC ULCER OF SKIN OF SITES W UNSP SEVERITY SNOMED Code(s): 84342703
[2020-11-11 10:58] LABS: HGB 10.1 g/dL (12.0-15.0); MCH 28.9 pg (27.0-32.0); MCHC 28.9 g/dL (32.0-37.0); MCV 100.3 fL (80.0-97.0); Mean Platelet Volume 11.6 fL (9.5-12.2); Platelet Count 127 X 10*3/uL (140-440); RBC 3.49 X 10*6/uL (4.10-5.20); RDW 14.2 % (11.5-14.5); WBC 25.35 X 10*3/uL (4.50-10.00)
[2020-11-11] MEDS ORDERED: SODIUM CHLORIDE 0.9% 1,000 ML IV SCH ×2 (11:30→17:30)
[2020-11-11 11:32] LABS: Glucose,Whole Blood 121 mg/dL (75-99)
--- NOTE | 2020-11-11 12:28 | P.PN ---
Subjective Progress Note Date: 11/11/20 75-year-old female patient, very much debilitated due to her advanced lung disease and COPD, well-known to me and I have taken care of this patient during her recent hospitalization when she came in with acute COPD exacerbation acute hypoxic and hypercapnic respiratory failure. She is typically on oxygen at home. She is a chronic smoker. She came into the emergency room because of altered mentation. Further investigation in the emergency yielded that the patient was having an underlying urine checked infection. UA was abnormal with elevated white cells. COVID-19 testing was negative. The patient +1 protein and +4 glucose and her urine. Rest of the blood work showed a troponin of 0.02. The patient's white cell count was elevated at 26 with a platelet count dropped down to 101 with a hemoglobin of 10.4. Correlation profile was normal. Serum bicarb was 32 with a BUN of 36 and a creatinine of 0.7. LFTs were normal. Albumin was low at 2.5. Blood sugar was 337. Chest x-ray was consistent with COPD there was no evidence of any airspace disease. The patient was given a total of 3 L of IV fluids in the emergency pH is currently producing some urine output. No hypotension. She was given a gram of Rocephin in the emergency department. Her current level of alertness is improved. She is able to answer some simple questions. She is unable to hold long conversations. She is e xtensive debilitated. She has history of falls. She has history of fractures secondary to falls. She may need assistance for activities of daily today life. She is edentulous. No reported aspiration. She is able to move all 4 extremities. No seizure activity. No neck stiffness. She is currently afebrile and she is hemodynamically On 11/11/2020, the patient is alert and oriented and she is aware of time and place. She is profoundly weak and she is having difficulties in grabbing object s, reaching, lifting and self-feeding. She is started on Rocephin for an underlying urinary tract infection. Urine cultures are still pending. Blood cultures also pending. Meanwhile, the white cell count is currently at 25 which is slightly improved compared to yesterday. Platelet count is at 127. Her proBNP level came at 943. Blood sugar is at 121. She is afebrile. She is hemodynamically stable. She is on IV fluids currently at the rate of 100 mL an hour of 0.9 saline. No respiratory distress at this point in time. Objective - Vital Signs Vital signs: Vital Signs Temp 98.2 F 11/11/20 07:58 Pulse 114 H 11/11/20 09:23 Resp 17 11/11/20 07:58 BP 96/55 11/11/20 07:58 Pulse Ox 100 11/11/20 07:58 Intake & Output 11/10/20 11/11/20 11/11/20 18:59 06:59 18:59 Intake Total 200 Balance 200 Weight 54.431 kg Intake: Oral 200 Other: Voiding Method External Catheter # Voids 1 - Exam GENERAL EXAM: Alert, pleasant, 73-year-old white female, 3 L of oxygen with a pulse ox of 99% comfortable in no apparent distress. HEAD: Normocephalic/atraumatic. EYES: Normal reaction of pupils, equal size. Conjunctiva pink, sclera white. NOSE: Clear with pink turbinates. THROAT: No erythema or exudates. NECK: No masses, no JVD, no thyroid enlargement, no adenopathy. CHEST: No chest wall deformity. Symmetrical expansion. LUNGS: Equal air entry with diminished breath sounds. CVS: Regular rate and rhythm, normal S1 and S2, no gallops, no murmurs, no rubs ABDOMEN: Soft, nontender. No hepatosplenomegaly, normal bowel sounds, no guarding or rigidity. EXTREMITIES: No clubbing, no edema, no cyanosis, 2+ pulses and upper and lower extremities. MUSCULOSKELETAL: Muscle strength and tone normal. SPINE: No scoliosis or deformity SKIN: No rashes CENTRAL NERVOUS SYSTEM: Alert and oriented -3. No focal deficits, tone is normal in all 4 extremities. Has improved and the patient is communicating and following some simple commands and answering questions. PSYCHIATRIC: Alert and oriented -3. Appropriate affect. Impaired judgment and insight. - Labs CBC & Chem 7: 11/11/20 05:26 11/10/20 03:44 Labs: Abnormal Lab Results - Last 24 Hours (Table) 11/10/20 11/10/20 11/10/20 Range/Units 15:05 19:33 21:18 WBC (4.50-10.00) X 10*3/uL RBC (4.10-5.20) X 10*6/uL Hgb (12.0-15.0) g/dL Hct (37.2-46.3) % MCV (80.0-97.0) fL MCHC (32.0-37.0) g/dL Plt Count (140-440) X 10*3/uL Plt Count Comment POC Glucose (mg/dL) 290 H 208 H 236 H (75-99) mg/dL 11/11/20 11/11/20 11/11/20 Range/Units 00:13 05:26 11:30 WBC 25.35 H (4.50-10.00) X 10*3/uL RBC 3.49 L (4.10-5.20) X 10*6/uL Hgb 10.1 L (12.0-15.0) g/dL Hct 35.0 L (37.2-46.3) % MCV 100.3 H (80.0-97.0) fL MCHC 28.9 L (32.0-37.0) g/dL Plt Count 127 L (140-440) X 10*3/uL Plt Count Comment DECREASED A POC Glucose (mg/dL) 220 H 121 H (75-99) mg/dL Microbiology - Last 24 Hours (Table) 11/10/20 04:48 Urine Culture - Preliminary Urine,Voided Assessment and Plan Plan: #1. Altered mental status secondary to an underlying urine tract infection. Patient is currently in the hospital, admitted and the patient is being treated with a combination of IV fluids and antibiotics. UA was no evidence was quite abnormal. Awaiting final results of the cultures. Clinically improved in terms of her mental status and the patient remains on IV Rocephin pending cultures. #2. The patient has advanced and end-stage COPD with chronic hypoxemic and hypercapnic respiratory failure related to advanced COPD, stage IV, with baseline FEV1 of 28% of predicted, oxygen at 3-4 L of O2 by nasal cannula. #3. Chronic and ongoing nicotine dependence, currently down to 2 cigarettes a day #4. Hypertension #5. Osteoarthritis #6. Hypothyroidism #7. Anxiety #8 frequent falls, for now the patient is bedbound #9 fracture in the left upper extremity status post removal of the casts #10 multiple areas of skin laceration largest in the left upper lower extremity, healed Plan Normal saline at the rate of 100 mL an hour. IV Rocephin 1 g every 24 hours Oxygen by nasal cannula at 3 L Continue with pulmonary toileting and deep breathing Provide the patient incentive spirometer DuoNeb the less treatments around the clock COVID-19 testing by PCR was negative nicotine patch Sliding-scale insulin coverage with NovoLog and will start the patient on Levemir 15 units at bedtime and monitor the blood sugar control. Would use insulin drip if needed. Lovenox for DVT prophylaxis She is more awake and alert and there is no signs of CO2 narcosis. We'll continue to follow.
--- NOTE | 2020-11-11 12:39 | P.PN ---
Subjective Patient is a 75-year-old female alert oriented 1 came in with altered mental status patient lives with her and the son. Patient is able to void with fairly good history but definitely confused. Patient is sleepy. Patient doesn't have any fever chills denied any dysuria denied any suprapubic pain. Chest x-ray is within normal limits patient has leukocytosis with white blood cell count or going up to 26,000. He was admitted for urinary tract infection patient was started on Rocephin. Patient has a superficial wound stage II just below the knee on the medial aspect. This doesn't appear to be infected patient is hyponatremic clinically appears to be dehydrated as well. Patient is receiving IV fluids at this time. She and is on [place] of oxygen patient states she does use oxygen at home but can't tell me how many liters she uses 11/11/2020 Patient mental status appears to have improved a bit. Patient is probably alert oriented 2 [place] [id number], continue Rocephin, urine cultures are still pending. I do not have any basic metabolic profile available from today. Patient's blood glucose is better controlled today. Patient's blood pressure is low patient was will be started on IV fluids. Constitutional: Denied any fatigue denied any fever. Cardio vascular: denied any chest pain, palpitations Gastrointestinal denied any nausea vomiting Pulmonary: Denied any shortness of breath cough Neurologic denied any new focal deficits All inpatient medications were reviewed and appropriate changes in these medications as dictated in the interval history and assessment and plan. Objective - Vital Signs Vital signs: Vital Signs Temp 98.2 F 11/11/20 07:58 Pulse 114 H 11/11/20 09:23 Resp 17 11/11/20 07:58 BP 96/55 11/11/20 07:58 Pulse Ox 100 11/11/20 07:58 Intake & Output 11/10/20 11/11/20 11/11/20 18:59 06:59 18:59 Intake Total 200 Balance 200 Weight 54.431 kg Intake: Oral 200 Other: Voiding Method External Catheter # Voids 1 - Exam PHYSICAL EXAMINATION: GENERAL: The patient is drowsy oriented 2, not in any acute distress. Well developed, well nourished. HEENT: Pupils are round and equally reacting to light. EOMI. No scleral icterus. No conjunctival pallor. Normocephalic, atraumatic. No pharyngeal erythema. No thyromegaly. Dry skin and mucous membranes CARDIOVASCULAR: S1 and S2 present. No murmurs, rubs, or gallops. PULMONARY: Chest is clear to auscultation, no wheezing or crackles. ABDOMEN: Soft, nontender, nondistended, normoactive bowel sounds. No palpable organomegaly. MUSCULOSKELETAL: No joint swelling or deformity. EXTREMITIES: No cyanosis, clubbing, or pedal edema. NEUROLOGICAL: Doesn't appear to have any focal deficits moving all 4 limbs although oriented times only 1 SKIN: Superficial stage II ulcer which doesn't appear to be infected on the left leg below the knee medial aspect - Labs CBC & Chem 7: 11/11/20 05:26 11/10/20 03:44 Labs: Abnormal Lab Results - Last 24 Hours (Table) 11/10/20 11/10/20 11/10/20 Range/Units 15:05 19:33 21:18 WBC (4.50-10.00) X 10*3/uL RBC (4.10-5.20) X 10*6/uL Hgb (12.0-15.0) g/dL Hct (37.2-46.3) % MCV (80.0-97.0) fL MCHC (32.0-37.0) g/dL Plt Count (140-440) X 10*3/uL Plt Count Comment POC Glucose (mg/dL) 290 H 208 H 236 H (75-99) mg/dL 11/11/20 11/11/20 11/11/20 Range/Units 00:13 05:26 11:30 WBC 25.35 H (4.50-10.00) X 10*3/uL RBC 3.49 L (4.10-5.20) X 10*6/uL Hgb 10.1 L (12.0-15.0) g/dL Hct 35.0 L (37.2-46.3) % MCV 100.3 H (80.0-97.0) fL MCHC 28.9 L (32.0-37.0) g/dL Plt Count 127 L (140-440) X 10*3/uL Plt Count Comment DECREASED A POC Glucose (mg/dL) 220 H 121 H (75-99) mg/dL Microbiology - Last 24 Hours (Table) 11/10/20 04:48 Urine Culture - Preliminary Urine,Voided Assessment and Plan Plan: Altered mental status most probably send her to toxic encephalopathy can be urinary tract infection patient will be continued on Rocephin 2 g. -Dehydration and hypovolemic hyponatremia and patient will be continued on IV fluids. We'll obtain basic metabolic profile tomorrow today -Type 2 diabetes mellitus uncontrolled elevated blood sugars patient will be started on sliding scale along with his 15 units of insulin 5 leukocytosis probably secondary to to sepsis from urinary tract infection -Hypertension -Left lower extremity wound for which we'll care was ordered from Evaluated the patient -Hyperthyroidism asked and-peripheral vascular disease -COPD without any acute exacerbation -Chronic hypoxic and hypercapnic respiratory failure secondary to COPD. Patient usually uses 4 L of oxygen at home -Anxiety disorder -DVT prophylaxis with Lovenox
[2020-11-11 14:41] VITALS: BMI 19.3
[2020-11-11 15:43] LABS: African American GFR (CKD) 96.9 (60.0-200.0); Anion Gap 13.3 mmol/L (4.00-12.00); BUN/Creat Ratio 51.43 Ratio (12.00-20.00); Calcium 8.2 mg/dL (8.7-10.3); Carbon Dioxide 24.7 mmol/L (21.6-31.8); Non-African American GFR(CKD) 83.6 (60.0-200.0); Potassium 3.9 mmol/L (3.5-5.5)
[2020-11-11 16:48] LABS: Glucose,Whole Blood 193 mg/dL (75-99)
[2020-11-11] MEDS ORDERED: FUROSEMIDE 10 MG/ML 4 ML VIAL IV STA (17:20)
[2020-11-11] MEDS ORDERED: ALPRAZolam 0.25 MG TAB PO PRN (18:11)
[2020-11-11 20:54] LABS: ABG Base Excess 4.6 mmol/L; ABG HCO3 32 mmol/L (21-25); ABG Oxygen Saturation 94.3 % (94-97); ABG PH 7.26 (7.35-7.45); ABG PO2 78 mmHg (83-108); ABG TCO2 34 mmol/L (19-24); Allen Test Performed? Yes
[2020-11-11 21:10] LABS: ABG PCO2 71 mmHg (35-45)
[2020-11-11 21:10] LABS: Glucose,Whole Blood 111 mg/dL (75-99)
--- NOTE | 2020-11-11 21:15 | XR ---
EXAMINATION TYPE: XR chest 1V portable DATE OF EXAM: 11/11/2020 COMPARISON: Yesterday HISTORY: Chest pain TECHNIQUE: Single view FINDINGS: There is some blunting of the costophrenic angles. There is mild pulmonary congestion. Hear t appears borderline enlarged. IMPRESSION: Small pleural effusions and pulmonary congestion increased compared to yesterday and cons istent with heart failure.
[2020-11-11] MEDS ORDERED: FUROSEMIDE 10 MG/ML 10 ML VIAL IV ONE (21:29)
[2020-11-11] MEDS: CEFEPIME 2 GM in SODIUM CHLORIDE 0.9% 100 ML IVPB SCH (22:54)
[2020-11-12] MEDS: LEVOTHYROXINE 75 MCG TAB PO SCH (06:25)
[2020-11-12 07:19] LABS: Glucose,Whole Blood 264 mg/dL (75-99)
[2020-11-12] MEDS: IPRATROPIUM-ALBUTEROL 3 ML NEB INHALATION SCH ×4 (07:31→20:15)
[2020-11-12] MEDS: SYMBICORT 160-4.5 MCG INHALER INHALATION SCH ×2 (07:31→20:15)
[2020-11-12] MEDS: INSULIN ASPART (NovoLOG) 100 UNIT/ML VIAL SQ SCH ×5 (08:18→22:43)
[2020-11-12] MEDS: NICOTINE 21MG/24HR PATCH TRANSDERM SCH (08:19)
[2020-11-12] MEDS: DOCUSATE 100 MG CAP PO SCH ×2 (08:19→22:44)
[2020-11-12] MEDS: ENOXAPARIN 40 MG/0.4 ML SYRINGE SQ SCH (08:19)
[2020-11-12] MEDS: FAMOTIDINE 20 MG TAB PO SCH (08:19)
[2020-11-12] MEDS: LORATADINE 10 MG TAB PO SCH (08:19)
[2020-11-12] MEDS: CEFEPIME 2 GM in SODIUM CHLORIDE 0.9% 100 ML IVPB SCH ×2 (08:20→22:44)
[2020-11-12 09:11] LABS: HGB 10.1 g/dL (12.0-15.0); MCH 28.7 pg (27.0-32.0); MCHC 28.9 g/dL (32.0-37.0); MCV 99.4 fL (80.0-97.0); Mean Platelet Volume 11.7 fL (9.5-12.2); Platelet Count 129 X 10*3/uL (140-440); RBC 3.52 X 10*6/uL (4.10-5.20); RDW 14.4 % (11.5-14.5); WBC 23.99 X 10*3/uL (4.50-10.00)
[2020-11-12 10:43] LABS: African American GFR (CKD) 56.1 (60.0-200.0); Anion Gap 12.4 mmol/L (4.00-12.00); BUN/Creat Ratio 41.82 Ratio (12.00-20.00); Calcium 8.7 mg/dL (8.7-10.3); Carbon Dioxide 22.6 mmol/L (21.6-31.8); Non-African American GFR(CKD) 48.4 (60.0-200.0); Potassium 4.8 mmol/L (3.5-5.5)
[2020-11-12 11:28] LABS: Glucose,Whole Blood 305 mg/dL (75-99)
[2020-11-12] MEDS: ASPIRIN 325 MG TAB PO SCH (11:46)
[2020-11-12] MEDS: SODIUM CHLORIDE 0.9% 1,000 ML IV SCH (11:46)
--- NOTE | 2020-11-12 15:01 | P.PN ---
Subjective Progress Note Date: 11/12/20 Patient is a 75-year-old female alert oriented 1 came in with altered mental status patient lives with her and the son. Patient is able to void with fairly good history but definitely confused. Patient is sleepy. Patient doesn't have any fever chills denied any dysuria denied any suprapubic pain. Chest x-ray is within normal limits patient has leukocytosis with white blood cell count or going up to 26,000. He was admitted for urinary tract infection patient was started on Rocephin. Patient has a superficial wound stage II just below the knee on the medial aspect. This doesn't appear to be infected patient is hyponatremic clinically appears to be dehydrated as well. Patient is rec eiving IV fluids at this time. She and is on [place] of oxygen patient states she does use oxygen at home but can't tell me how many liters she uses 11/11/2020 Patient mental status appears to have improved a bit. Patient is probably alert oriented 2 [place] [address], continue Rocephin, urine cultures are still pending. I do not have any basic metabolic profile available from today. Patient's blood glucose is better controlled today. Patient's blood pressure is low patient was will be started on IV fluids. 11/12/2020 Patient is seen and evaluated in follow-up is alert and oriented 2 and continues to be extremely lethargic although arousable. Patient states she has continued shortness of breath and is maintained on 3 L of oxygen via nasal cannula with 100% oxygen saturation. Patient was requiring BiPAP last night and will continue to use as needed. Blood pressures remain on the lower side but stable in the 90s systolic and will continue with conservative IV fluids as she was receiving fluids yesterday and became increasing short of breath requiring a dose of IV Lasix. Patient's urine cultures finalized showing E. coli and will continue ceftriaxone and transitioned to oral on discharge. Blood sugars being monitored before meals and at bedtime and last night's dose of long-acting was not given as her blood sugar was 111 and this morning's blood sugars are elevated again. Will continue with current regimen. Chest x-ray from last n ight shows small pleural effusions and pulmonary congestion increased compared to yesterday's exam consistent with heart failure. Limited on being able to give IV Lasix due to low blood pressures and will continue to monitor closely. Wound care also following him recommending local wound care to the left lower extremity. Constitutional: Continued fatigue, denied any fever. Cardio vascular: denied any chest pain, palpitations Gastrointestinal denied any nausea vomiting Pulmonary: Reports intermittent shortness of breath cough Neurologic denied any new focal deficits, weakness Objective - Vital Signs Vital signs: Vital Signs Temp 97.8 F 11/12/20 14:00 Pulse 85 11/12/20 14:00 Resp 16 11/12/20 14:00 BP 92/57 11/12/20 14:00 Pulse Ox 100 11/12/20 14:00 Intake & Output 11/11/20 11/12/20 11/12/20 18:59 06:59 18:59 Output Total 450 900 Balance -450 -900 Weight 54.431 kg Output: Urine 450 900 Other: Voiding Method External Catheter - Exam GENERAL: The patient is drowsy but arousable oriented 2, not in any acute distress. Well developed, well nourished. HEENT: Pupils are round and equally reacting to light. EOMI. No scleral icterus. No conjunctival pallor. Normocephalic, atraumatic. No pharyngeal erythema. No thyromegaly. Dry skin and mucous membranes CARDIOVASCULAR: S1 and S2 present. No murmurs, rubs, or gallops. PULMONARY: Diminished breath sounds otherwise Chest is clear to auscultation, no wheezing or crackles. ABDOMEN: Soft, nontender, nondistended, normoactive bowel sounds. No palpable organomegaly. MUSCULOSKELETAL: No joint swelling or deformity. EXTREMITIES: No cyanosis, clubbing, or pedal edema. NEUROLOGICAL: Doesn't appear to have any focal deficits moving all 4 limbs although oriented times only 1 SKIN: Superficial stage II ulcer which doesn't appear to be infected on the left leg below the knee medial aspect, Kerlix dressing noted as patient was evaluated and dressed by wound care today - Labs CBC & Chem 7: 11/12/20 06:07 11/12/20 06:07 Labs: Abnormal Lab Results - Last 24 Hours (Table) 11/11/20 11/11/20 11/11/20 Range/Units 05: 16:46 20:50 WBC (4.50-10.00) X 10*3/uL RBC (4.10-5.20) X 10*6/uL Hgb (12.0-15.0) g/dL Hct (37.2-46.3) % MCV (80.0-97.0) fL MCHC (32.0-37.0) g/dL Plt Count (140-440) X 10*3/uL ABG pH 7.26 L (7.35-7.45) ABG pCO2 71 H* (35-45) mmHg ABG pO2 78 L (83-108) mmHg ABG HCO3 32 H (21-25) mmol/L ABG Total CO2 34 H (19-24) mmol/L Anion Gap 13.30 H (4.00-12.00) mmol/L BUN 36.0 H (9.0-27.0) mg/dL Est GFR (CKD-EPI)AfAm (60.0-200.0) Est GFR (CKD-EPI)NonAf (60.0-200.0) BUN/Creatinine Ratio 51.43 H (12.00-20.00) Ratio Glucose (70-110) mg/dL POC Glucose (mg/dL) 193 H (75-99) mg/dL Calcium 8.2 L (8.7-10.3) mg/dL 11/11/20 11/12/20 11/12/20 Range/Units 21:09 06:07 06:07 WBC 23.99 H (4.50-10.00) X 10*3/uL RBC 3.52 L (4.10-5.20) X 10*6/uL Hgb 10.1 L (12.0-15.0) g/dL Hct 35.0 L (37.2-46.3) % MCV 99.4 H (80.0-97.0) fL MCHC 28.9 L (32.0-37.0) g/dL Plt Count 129 L (140-440) X 10*3/uL ABG pH (7.35-7.45) ABG pCO2 (35-45) mmHg ABG pO2 (83-108) mmHg ABG HCO3 (21-25) mmol/L ABG Total CO2 (19-24) mmol/L Anion Gap 12.40 H (4.00-12.00) mmol/L BUN 46.0 H (9.0-27.0) mg/dL Est GFR (CKD-EPI)AfAm 56.1 L (60.0-200.0) Est GFR (CKD-EPI)NonAf 48.4 L (60.0-200.0) BUN/Creatinine Ratio 41.82 H (12.00-20.00) Ratio Glucose 201 H (70-110) mg/dL POC Glucose (mg/dL) 111 H (75-99) mg/dL Calcium (8.7-10.3) mg/dL 11/12/20 11/12/20 Range/Units 07:06 11:26 WBC (4.50-10.00) X 10*3/uL RBC (4.10-5.20) X 10*6/uL Hgb (12.0-15.0) g/dL Hct (37.2-46.3) % MCV (80.0-97.0) fL MCHC (32.0-37.0) g/dL Plt Count (140-440) X 10*3/uL ABG pH (7.35-7.45) ABG pCO2 (35-45) mmHg ABG pO2 (83-108) mmHg ABG HCO3 (21-25) mmol/L ABG Total CO2 (19-24) mmol/L Anion Gap (4.00-12.00) mmol/L BUN (9.0-27.0) mg/dL Est GFR (CKD-EPI)AfAm (60.0-200.0) Est GFR (CKD-EPI)NonAf (60.0-200.0) BUN/Creatinine Ratio (12.00-20.00) Ratio Glucose (70-110) mg/dL POC Glucose (mg/dL) 264 H 305 H (75-99) mg/dL Calcium (8.7-10.3) mg/dL Microbiology - Last 24 Hours (Table) 11/10/20 04:48 Urine Culture - Final Urine,Voided Escherichia coli Assessment and Plan Assessment: -Altered mental status most probably secondary to toxic encephalopathy can be urinary tract infection patient will be continued on Rocephin 2 g. -Acute urinary tract infection with cultures growing E. coli and will continue ceftriaxone -Dehydration and hypovolemic hyponatremia, improved sodium is 139 today -Type 2 diabetes mellitus uncontrolled elevated blood sugars patient will continue on sliding scale along with Lantus 15 units of insulin. Long-acting wa s held last night for a blood sugar of 111 and blood sugars are elevated again this afternoon. -leukocytosis probably secondary to to sepsis from urinary tract infection, trending down and white blood count is 23.99 -Hypertension -Left lower extremity wound; wound care following and recommending wound care to lower extremity with honey -Hyperthyroidism -peripheral vascular disease -COPD without any acute exacerbation -Chronic hypoxic and hypercapnic respiratory failure secondary to COPD. Patient usually uses 4 L of oxygen at home -Anxiety disorder -DVT prophylaxis with Lovenox Plan: Continue with current medications. Patient is maintained on IV ceftriaxone and will continue as urine cultures finalized showing E. coli. Patient is currently on 4 L with 100% oxygen saturation. Pulmonary is following. Patient continues to be lethargic and somewhat confused and extremely weak and will have PT/OT reevaluate the patient. Patient may likely need rehab for some strengthening mobility and case management and social work following. Continue with sliding scale along with long-acting and monitor Accu-Cheks before meals and at bedtime and will repeat a.m. labs.
--- NOTE | 2020-11-12 15:12 | P.PN ---
Subjective Progress Note Date: 11/12/20 75-year-old female patient, very much debilitated due to her advanced lung disease and COPD, well-known to me and I have taken care of this patient during her recent hospitalization when she came in with acute COPD exacerbation acute hypoxic and hypercapnic respiratory failure. She is typically on oxygen at home. She is a chronic smoker. She came into the emergency room because of altered mentation. Further investigation in the emergency yielded that the patient was having an underlying urine checked infection. UA was abnormal with elevated white cells. COVID-19 testing was negative. The patient +1 protein and +4 glucose and her urine. Rest of the blood work showed a troponin of 0.02. The patient's white cell count was elevated at 26 with a platelet count dropped down to 101 with a hemoglobin of 10.4. Correlation profile was normal. Serum bicarb was 32 with a BUN of 36 and a creatinine of 0.7. LFTs were normal. Albumin was low at 2.5. Blood sugar was 337. Chest x-ray was consistent with COPD there was no evidence of any airspace disease. The patient was given a total of 3 L of IV fluids in the emergency pH is currently producing some urine output. No hypotension. She was given a gram of Rocephin in the emergency department. Her current level of alertness is improved. She is able to answer some simple questions. She is unable to hold long conversations. She is e xtensive debilitated. She has history of falls. She has history of fractures secondary to falls. She may need assistance for activities of daily today life. She is edentulous. No reported aspiration. She is able to move all 4 extremities. No seizure activity. No neck stiffness. She is currently afebrile and she is hemodynamically On 11/11/2020, the patient is alert and oriented and she is aware of time and place. She is profoundly weak and she is having difficulties in grabbing object s, reaching, lifting and self-feeding. She is started on Rocephin for an underlying urinary tract infection. Urine cultures are still pending. Blood cultures also pending. Meanwhile, the white cell count is currently at 25 which is slightly improved compared to yesterday. Platelet count is at 127. Her proBNP level came at 943. Blood sugar is at 121. She is afebrile. She is hemodynamically stable. She is on IV fluids currently at the rate of 100 mL an hour of 0.9 saline. No respiratory distress at this point in time. On 11/12/2020 I'm seeing the patient for a follow-up. The patient was hospitalized for an E. coli UTI and the patient was on Rocephin. Yesterday afternoon, the patient became progressively more short of breath and hypoxic. Chest x-ray was done and showed interstitial edema. Blood is also showed some respiratory acidosis. She was briefly tried on BiPAP which he was able to tolerate for around 3 hours.. She is currently off the BiPAP. At that point, the patient was given Lasix and IV fluids TO KVO. SHE PRODUCING ADEQUATE AMOUNT OF URINE OUTPUT AND CURRENTLY SHE IS on 3 L of oxygen by nasal cannula with a pulse ox of 100%. The patient is in a negative fluid balance of at least 1.3 L since yesterday. She is currently on IV cefepime. Antibiotics were broadened yesterday. Blood pressure is adequate. Her temperature is afebrile. Hemodynamically stable. Clinically is improved compared to yesterday and is down to 23.9. Hemoglobin stable at 10.1. The patient otherwise has normal electrolytes. Creatinine is at 1.1 with mean of 46. Blood sugar is elevated at 305 the patient is doing minimal amount of communication. She remains encephalopathic and confused on and off. He was able to tell me her name Objective - Vital Signs Vital signs: Vital Signs Temp 97.8 F 11/12/20 14:00 Pulse 85 11/12/20 14:00 Resp 16 11/12/20 14:00 BP 92/57 11/12/20 14:00 Pulse Ox 100 11/12/20 14:00 Intake & Output 11/11/20 11/12/20 11/12/20 18:59 06:59 18:59 Output Total 450 900 Balance -450 -900 Weight 54.431 kg Output: Urine 450 900 Other: Voiding Method External Catheter - Exam GENERAL EXAM: Alert, pleasant, 73-year-old white female, 3 L of oxygen with a pulse ox of 99% comfortable in no apparent distress. HEAD: Normocephalic/atraumatic. EYES: Normal reaction of pupils, equal size. Conjunctiva pink, sclera white. NOSE: Clear with pink turbinates. THROAT: No erythema or exudates. NECK: No masses, no JVD, no thyroid enlargement, no adenopathy. CHEST: No chest wall deformity. Symmetrical expansion. LUNGS: Equal air entry with diminished breath sounds. CVS: Regular rate and rhythm, normal S1 and S2, no gallops, no murmurs, no rubs ABDOMEN: Soft, nontender. No hepatosplenomegaly, normal bowel sounds, no guarding or rigidity. EXTREMITIES: No clubbing, no edema, no cyanosis, 2+ pulses and upper and lower extremities. MUSCULOSKELETAL: Muscle strength and tone normal. SPINE: No scoliosis or deformity SKIN: No rashes CENTRAL NERVOUS SYSTEM: Alert and oriented -3. No focal deficits, tone is normal in all 4 extremities. Has improved and the patient is communicating and following some simple commands and answering questions. PSYCHIATRIC: Alert and oriented -3. Appropriate affect. Impaired judgment and insight. - Labs CBC & Chem 7: 11/12/20 06:07 11/12/20 06:07 Labs: Abnormal Lab Results - Last 24 Hours (Table) 11/11/20 11/11/20 11/11/20 Range/Units 05:26 16:46 20:50 WBC (4.50-10.00) X 10*3/uL RBC (4.10-5.20) X 10*6/uL Hgb (12.0-15.0) g/dL Hct (37.2-46.3) % MCV (80.0-97.0) fL MCHC (32.0-37.0) g/dL Plt Count (140-440) X 10*3/uL ABG pH 7.26 L (7.35-7.45) ABG pCO2 71 H* (35-45) mmHg ABG pO2 78 L (83-108) mmHg ABG HCO3 32 H (21-25) mmol/L ABG Total CO2 34 H (19-24) mmol/L Anion Gap 13.30 H (4.00-12.00) mmol/L BUN 36.0 H (9.0-27.0) mg/dL Est GFR (CKD-EPI)AfAm (60.0-200.0) Est GFR (CKD-EPI)NonAf (60.0-200.0) BUN/Creatinine Ratio 51.43 H (12.00-20.00) Ratio Glucose (70-110) mg/dL POC Glucose (mg/dL) 193 H (75-99) mg/dL Calcium 8.2 L (8.7-10.3) mg/dL 11/11/20 11/12/20 11/12/20 Range/Units 21:09 06:07 06:07 WBC 23.99 H (4.50-10.00) X 10*3/uL RBC 3.52 L (4.10-5.20) X 10*6/uL Hgb 10.1 L (12.0-15.0) g/dL Hct 35.0 L (37.2-46.3) % MCV 99.4 H (80.0-97.0) fL MCHC 28.9 L (32.0-37.0) g/dL Plt Count 129 L (140-440) X 10*3/uL ABG pH (7.35-7.45) ABG pCO2 (35-45) mmHg ABG pO2 (83-108) mmHg ABG HCO3 (21-25) mmol/L ABG Total CO2 (19-24) mmol/L Anion Gap 12.40 H (4.00-12.00) mmol/L BUN 46.0 H (9.0-27.0) mg/dL Est GFR (CKD-EPI)AfAm 56.1 L (60.0-200.0) Est GFR (CKD-EPI)NonAf 48.4 L (60.0-200.0) BUN/Creatinine Ratio 41.82 H (12.00-20.00) Ratio Glucose 201 H (70-110) mg/dL POC Glucose (mg/dL) 111 H (75-99) mg/dL Calcium (8.7-10.3) mg/dL 11/12/20 11/12/20 Range/Units 07:06 11:26 WBC (4.50-10.00) X 10*3/uL RBC (4.10-5.20) X 10*6/uL Hgb (12.0-15.0) g/dL Hct (37.2-46.3) % MCV (80.0-97.0) fL MCHC (32.0-37.0) g/dL Plt Count (140-440) X 10*3/uL ABG pH (7.35-7.45) ABG pCO2 (35-45) mmHg ABG pO2 (83-108) mmHg ABG HCO3 (21-25) mmol/L ABG Total CO2 (19-24) mmol/L Anion Gap (4.00-12.00) mmol/L BUN (9.0-27.0) mg/dL Est GFR (CKD-EPI)AfAm (60.0-200.0) Est GFR (CKD-EPI)NonAf (60.0-200.0) BUN/Creatinine Ratio (12.00-20.00) Ratio Glucose (70-110) mg/dL POC Glucose (mg/dL) 264 H 305 H (75-99) mg/dL Calcium (8.7-10.3) mg/dL Microbiology - Last 24 Hours (Table) 11/10/20 04:48 Urine Culture - Final Urine,Voided Escherichia coli Assessment and Plan Plan: #1. Altered mental status secondary to an underlying ECOLI urine tract infection. . On today's evaluation the patient remains encephalopathic and altered. Nevertheless, she shows no signs of agitation. Neurologic exam is nonfocal. #2. The patient has advanced and end-stage COPD with chronic hypoxemic and hypercapnic respiratory failure related to advanced COPD, stage IV, with baseline FEV1 of 28% of predicted, oxygen at 3-4 L of O2 by nasal cannula. At some further decompensation respirator status and the patient developed hypoxemia and respiratory acidosis probably related to fluid overload and she responded nicely to diuretics. She is not utilizing BiPAP and she is back to 3 L of oxygen by nasal cannula. #3. Chronic and ongoing nicotine dependence, currently down to 2 cigarettes a day #4. Hypertension #5. Osteoarthritis #6. Hypothyroidism #7. Anxiety #8 frequent falls, for now the patient is bedbound #9 fracture in the left upper extremity status post removal of the casts #10 multiple areas of skin laceration largest in the left upper lower extremity, healed #11 hyperglycemia, likely diabetic in nature, currently on Levemir insulin Plan IV fluids to KVO IV cefepime regarding the E. coli infection/sepsis Oxygen by nasal cannula at 3 L Continue with pulmonary toileting and deep breathing, monitor the pulmonary status and watch for any signs of CO2 narcosis and BiPAP is on standby Provide the patient incentive spirometer DuoNeb the less treatments around the clock COVID-19 testing by PCR was negative nicotine patch Sliding-scale insulin coverage with NovoLog and will start the patient on Levemir 15 units at bedtime and monitor the blood sugar control. Lovenox for DVT prophylaxis We'll continue to follow.
[2020-11-12] MEDS ORDERED: ACETAMINOPHEN TAB 325 MG TAB PO PRN (16:47)
[2020-11-12 16:51] LABS: Glucose,Whole Blood 220 mg/dL (75-99)
[2020-11-12 20:46] LABS: Glucose,Whole Blood 252 mg/dL (75-99)
[2020-11-12] MEDS: INSULIN DETEMIR (LEVEMIR) 100 UNIT/ML SYR SQ SCH (22:43)
[2020-11-13 05:51] LABS: Basophils % (A) 0 %; Eosinophils # (A) 0.1 k/uL (0-0.7); Eosinophils % (A) 0 %; HCT 35.4 % (34.0-46.0); HGB 10.3 gm/dL (11.4-16.0); Hypochromasia Marked; Lymphocytes # (A) 0.3 k/uL (1.0-4.8); Lymphocytes % (A) 3 %; MCH 27.8 pg (25.0-35.0); MCHC 29.1 g/dL (31.0-37.0); MCV 95.4 fL (80.0-100.0); Mean Platelet Volume 8.6; Monocytes # (A) 0.5 k/uL (0-1.0); Monocytes % (A) 4 %; Neutrophils # (A) 11.9 k/uL (1.3-7.7); Neutrophils % (A) 93 %; RBC 3.71 m/uL (3.80-5.40); RDW 14.3 % (11.5-15.5); WBC 12.9 k/uL (3.8-10.6)
[2020-11-13 05:53] LABS: Platelet Count 170 k/uL (150-450)
[2020-11-13 06:05] LABS: Glucose,Whole Blood 153 mg/dL (75-99)
[2020-11-13 06:16] LABS: African American GFR (CKD) 57 (>60 ml/min/1.73 sqM); Anion Gap 4 mmol/L; Blood Urea Nitrogen 53 mg/dL (7-17); Calcium 8.7 mg/dL (8.4-10.2); Carbon Dioxide 31 mmol/L (22-30); Chloride 101 mmol/L (98-107); Glucose 179 mg/dL (74-99); Non-African American GFR(CKD) 50 (>60 ml/min/1.73 sqM); Potassium 3.8 mmol/L (3.5-5.1); Sodium 136 mmol/L (137-145)
[2020-11-13 07:20] LABS: Glucose,Whole Blood 152 mg/dL (75-99)
[2020-11-13] MEDS: IPRATROPIUM-ALBUTEROL 3 ML NEB INHALATION SCH ×4 (08:06→22:06)
[2020-11-13] MEDS: SYMBICORT 160-4.5 MCG INHALER INHALATION SCH ×2 (08:06→22:06)
[2020-11-13] MEDS: CEFEPIME 2 GM in SODIUM CHLORIDE 0.9% 100 ML IVPB SCH (10:10)
[2020-11-13] MEDS: INSULIN ASPART (NovoLOG) 100 UNIT/ML VIAL SQ SCH ×6 (10:10→17:34)
[2020-11-13] MEDS: NICOTINE 21MG/24HR PATCH TRANSDERM SCH (10:10)
[2020-11-13] MEDS: LEVOTHYROXINE 75 MCG TAB PO SCH (10:11)
[2020-11-13] MEDS: LORATADINE 10 MG TAB PO SCH (10:11)
[2020-11-13] MEDS: ENOXAPARIN 40 MG/0.4 ML SYRINGE SQ SCH (10:11)
[2020-11-13] MEDS: DOCUSATE 100 MG CAP PO SCH (10:11)
[2020-11-13] MEDS: FAMOTIDINE 20 MG TAB PO SCH (10:11)
[2020-11-13 11:50] LABS: Glucose,Whole Blood 108 mg/dL (75-99)
--- NOTE | 2020-11-13 13:15 | P.PN ---
Subjective Progress Note Date: 11/13/20 75-year-old female patient, very much debilitated due to her advanced lung disease and COPD, well-known to me and I have taken care of this patient during her recent hospitalization when she came in with acute COPD exacerbation acute hypoxic and hypercapnic respiratory failure. She is typically on oxygen at home. She is a chronic smoker. She came into the emergency room because of altered mentation. Further investigation in the emergency yielded that the patient was having an underlying urine checked infection. UA was abnormal with elevated white cells. COVID-19 testing was negative. The patient +1 protein and +4 glucose and her urine. Rest of the blood work showed a troponin of 0.02. The patient's white cell count was elevated at 26 with a platelet count dropped down to 101 with a hemoglobin of 10.4. Correlation profile was normal. Serum bicarb was 32 with a BUN of 36 and a creatinine of 0.7. LFTs were normal. Albumin was low at 2.5. Blood sugar was 337. Chest x-ray was consistent with COPD there was no evidence of any airspace disease. The patient was given a total of 3 L of IV fluids in the emergency pH is currently producing some urine output. No hypotension. She was given a gram of Rocephin in the emergency department. Her current level of alertness is improved. She is able to answer some simple questions. She is unable to hold long conversations. She is e xtensive debilitated. She has history of falls. She has history of fractures secondary to falls. She may need assistance for activities of daily today life. She is edentulous. No reported aspiration. She is able to move all 4 extremities. No seizure activity. No neck stiffness. She is currently afebrile and she is hemodynamically On 11/11/2020, the patient is alert and oriented and she is aware of time and place. She is profoundly weak and she is having difficulties in grabbing object s, reaching, lifting and self-feeding. She is started on Rocephin for an underlying urinary tract infection. Urine cultures are still pending. Blood cultures also pending. Meanwhile, the white cell count is currently at 25 which is slightly improved compared to yesterday. Platelet count is at 127. Her proBNP level came at 943. Blood sugar is at 121. She is afebrile. She is hemodynamically stable. She is on IV fluids currently at the rate of 100 mL an hour of 0.9 saline. No respiratory distress at this point in time. On 11/12/2020 I'm seeing the patient for a follow-up. The patient was hospitalized for an E. coli UTI and the patient was on Rocephin. Yesterday afternoon, the patient became progressively more short of breath and hypoxic. Chest x-ray was done and showed interstitial edema. Blood is also showed some respiratory acidosis. She was briefly tried on BiPAP which he was able to tolerate for around 3 hours.. She is currently off the BiPAP. At that point, the patient was given Lasix and IV fluids TO KVO. SHE PRODUCING ADEQUATE AMOUNT OF URINE OUTPUT AND CURRENTLY SHE IS on 3 L of oxygen by nasal cannula with a pulse ox of 100%. The patient is in a negative fluid balance of at least 1.3 L since yesterday. She is currently on IV cefepime. Antibiotics were broadened yesterday. Blood pressure is adequate. Her temperature is afebrile. Hemodynamically stable. Clinically is improved compared to yesterday and is down to 23.9. Hemoglobin stable at 10.1. The patient otherwise has normal electrolytes. Creatinine is at 1.1 with mean of 46. Blood sugar is elevated at 305 the patient is doing minimal amount of communication. She remains encephalopathic and confused on and off. He was able to tell me her name [id number], patient is being seen for a follow-up. She is a 75-year-old here patient with advanced COPD with chronic hypoxic and hypercapnic respiratory failure who came in for a gram-negative UTI secondary to E. coli. The patient currently remains on IV cefepime. This morning, the patient is resting comfortably in bed. She is on oxygen at 4 L per minute nasal cannula and a pulse ox of 95-99%. She was diuresed adequately and the patient's has been in a negative fluid balance of 1.3 L over the past 24 hours. She did not require BiPAP overnight. She remains on IV cefepime for now. IV fluids are currently at KVO. She remains on Lovenox for DVT prophylaxis. She is extremely debilitated and weak and somewhat lethargic. White cell count dropped down to 12.9. He moves at 10.3. Platelet count is at 170. Renal function is also stable at 1.08 with a serum bicarb of 31 and a sodium level of 136. Objective - Vital Signs Vital signs: Vital Signs Temp 98.4 F 11/13/20 07:38 Pulse 77 11/13/20 12:04 Resp 18 11/13/20 08:45 BP 95/58 11/13/20 07:38 Pulse Ox 100 11/13/20 07:38 Intake & Output 11/12/20 11/13/20 11/13/20 18:59 06:59 18:59 Output Total 900 400 Balance -900 -400 Output: Urine 900 400 Other: Voiding Method External Catheter External Catheter # Voids 2 # Bowel Movements 1 1 - Exam GENERAL EXAM: Alert, pleasant, 73-year-old white female, 3 L of oxygen with a pulse ox of 99% comfortable in no apparent distress. HEAD: Normocephalic/atraumatic. EYES: Normal reaction of pupils, equal size. Conjunctiva pink, sclera white. NOSE: Clear with pink turbinates. THROAT: No erythema or exudates. NECK: No masses, no JVD, no thyroid enlargement, no adenopathy. CHEST: No chest wall deformity. Symmetrical expansion. LUNGS: Equal air entry with diminished breath sounds. CVS: Regular rate and rhythm, normal S1 and S2, no gallops, no murmurs, no rubs ABDOMEN: Soft, nontender. No hepatosplenomegaly, normal bowel sounds, no guarding or rigidity. EXTREMITIES: No clubbing, no edema, no cyanosis, 2+ pulses and upper and lower extremities. MUSCULOSKELETAL: Muscle strength and tone normal. SPINE: No scoliosis or deformity SKIN: No rashes CENTRAL NERVOUS SYSTEM: Alert and oriented -3. No focal deficits, tone is normal in all 4 extremities. Has improved and the patient is communicating and following some simple commands and answering questions. PSYCHIATRIC: Alert and oriented -3. Appropriate affect. Impaired judgment and insight. - Labs CBC & Chem 7: 11/13/20 05:02 11/13/20 05:02 Labs: Abnormal Lab Results - Last 24 Hours (Table) 11/12/20 11/12/20 11/13/20 Range/Units 16:49 20:44 05:02 WBC 12.9 H (3.8-10.6) k/uL RBC 3.71 L (3.80-5.40) m/uL Hgb 10.3 L (11.4-16.0) gm/dL MCHC 29.1 L (31.0-37.0) g/dL Neutrophils # 11.9 H (1.3-7.7) k/uL Lymphocytes # 0.3 L (1.0-4.8) k/uL Sodium (137-145) mmol/L Carbon Dioxide (22-30) mmol/L BUN (7-17) mg/dL Creatinine (0.52-1.04) mg/dL Glucose (74-99) mg/dL POC Glucose (mg/dL) 220 H 252 H (75-99) mg/dL 11/13/20 11/13/20 11/13/20 Range/Units 05:02 06:04 07:18 WBC (3.8-10.6) k/uL RBC (3.80-5.40) m/uL Hgb (11.4-16.0) gm/dL MCHC (31.0-37.0) g/dL Neutrophils # (1.3-7.7) k/uL Lymphocytes # (1.0-4.8) k/uL Sodium 136 L (137-145) mmol/L Carbon Dioxide 31 H (22-30) mmol/L BUN 53 H (7-17) mg/dL Creatinine 1.08 H (0.52-1.04) mg/dL Glucose 179 H (74-99) mg/dL POC Glucose (mg/dL) 153 H 152 H (75-99) mg/dL 11/13/20 Range/Units 11:49 WBC (3.8-10.6) k/uL RBC (3.80-5.40) m/uL Hgb (11.4-16.0) gm/dL MCHC (31.0-37.0) g/dL Neutrophils # (1.3-7.7) k/uL Lymphocytes # (1.0-4.8) k/uL Sodium (137-145) mmol/L Carbon Dioxide (22-30) mmol/L BUN (7-17) mg/dL Creatinine (0.52-1.04) mg/dL Glucose (74-99) mg/dL POC Glucose (mg/dL) 108 H (75-99) mg/dL Microbiology - Last 24 Hours (Table) 11/10/20 04:48 Urine Culture - Final Urine,Voided Escherichia coli Assessment and Plan Plan: #1. Altered mental status secondary to an underlying ECOLI urine tract infection. He, the patient remains encephalopathic following this urine tract infection. She is extensively debilitated at baseline. She has advanced lung disease. She is quite cachectic with a body mass index of 19.4. Able to answer some simple questions when frequently aspirin she is arousable and she is moving all 4 extremities and the neurologic exam remains nonfocal. No signs of any significant respiratory distress at this point in time. #2. The patient has advanced and end-stage COPD with chronic hypoxemic and hypercapnic respiratory failure related to advanced COPD, stage IV, with baseline FEV1 of 28% of predicted, oxygen at 3-4 L of O2 by nasal cannula. At some further decompensation respirator status and the patient developed hypo xemia and respiratory acidosis probably related to fluid overload and she responded nicely to diuretics. She is not utilizing BiPAP and she is back to 3 L of oxygen by nasal cannula. #3. Chronic and ongoing nicotine dependence, currently down to 2 cigarettes a day #4. Hypertension #5. Osteoarthritis #6. Hypothyroidism #7. Anxiety #8 frequent falls, for now the patient is bedbound #9 fracture in the left upper extremity status post removal of the casts #10 multiple areas of skin laceration largest in the left upper lower extremity, healed #11 hyperglycemia, likely diabetic in nature, currently on Levemir insulin Plan IV fluids to KVO Assistance with diet Sepsis improving and the patient's white cell count is also is on the decline IV cefepime regarding the E. coli infection/sepsis Oxygen by nasal cannula at 3 L Continue with pulmonary toileting and deep breathing, monitor the pulmonary status and watch for any signs of CO2 narcosis and BiPAP is on standby Provide the patient incentive spirometer DuoNeb the less treatments around the clock COVID-19 testing by PCR was negative nicotine patch Sliding-scale insulin coverage with NovoLog and will start the patient on Le vemir 15 units at bedtime and monitor the blood sugar control. Lovenox for DVT prophylaxis We'll continue to follow. Patient is extremely debilitated. She has a body mass index of 19.4. Recommend establishing for status.
--- NOTE | 2020-11-13 16:30 | P.PN ---
Subjective Progress Note Date: 11/13/20 Patient is a 75-year-old female alert oriented 1 came in with altered mental status patient lives with her and the son. Patient is able to void with fairly good history but definitely confused. Patient is sleepy. Patient doesn't have any fever chills denied any dysuria denied any suprapubic pain. Chest x-ray is within normal limits patient has leukocytosis with white blood cell count or going up to 26,000. He was admitted for urinary tract infection patient was started on Rocephin. Patient has a superficial wound stage II just below the knee on the medial aspect. This doesn't appear to be infected patient is hyponatremic clinically appears to be dehydrated as well. Patient is rec eiving IV fluids at this time. She and is on [place] of oxygen patient states she does use oxygen at home but can't tell me how many liters she uses 11/11/2020 Patient mental status appears to have improved a bit. Patient is probably alert oriented 2 [place] [id number], continue Rocephin, urine cultures are still pending. I do not have any basic metabolic profile available from today. Patient's blood glucose is better controlled today. Patient's blood pressure is low patient was will be started on IV fluids. 11/12/2020 Patient is seen and evaluated in follow-up is alert and oriented 2 and continues to be extremely lethargic although arousable. Patient states she has continued shortness of breath and is maintained on 3 L of oxygen via nasal cannula with 100% oxygen saturation. Patient was requiring BiPAP last night and will continue to use as needed. Blood pressures remain on the lower side but stable in the 90s systolic and will continue with conservative IV fluids as she was receiving fluids yesterday and became increasing short of breath requiring a dose of IV Lasix. Patient's urine cultures finalized showing E. coli and will continue ceftriaxone and transitioned to oral on discharge. Blood sugars being monitored before meals and at bedtime and last night's dose of long-acting was not given as her blood sugar was 111 and this morning's blood sugars are elevated again. Will continue with current regimen. Chest x-ray from last n ight shows small pleural effusions and pulmonary congestion increased compared to yesterday's exam consistent with heart failure. Limited on being able to give IV Lasix due to low blood pressures and will continue to monitor closely. Wound care also following him recommending local wound care to the left lower extremity. 11/13/2020 Patient is seen this morning in follow-up continues on 3-4 L of oxygen via nasal cannula and continues to be extremely lethargic with intermittent periods of being awake all continues to fall asleep during conversation. Patient is extremely weak requiring maximum assist and assistance with meals. Patient did not use BiPAP last night and will continue with current medication regimen. Urinary cultures have finalized showing E. coli and antibiotics are maintained in the form of cefepime and will continue. Pulmonary following closely. Continue with breathing treatments. Case management and Social work also following working on placement in accepting facilities and discharge planning needs once more stabilized. White blood count trending down at 12.9, hemoglobin is stable at 10.3, sodium is 136 current creatinine slightly improved at 1.08. Constitutional: Continued fatigue, denied any fever. Cardio vascular: denied any chest pain, palpitations Gastrointestinal denied any nausea vomiting Pulmonary: Reports intermittent shortness of breath cough Neurologic denied any new focal deficits, weakness Objective - Vital Signs Vital signs: Vital Signs Temp 98.3 F 11/13/20 14:00 Pulse 84 11/13/20 14:00 Resp 18 11/13/20 14:00 BP 102/63 11/13/20 14:00 Pulse Ox 96 11/13/20 14:00 Intake & Output 11/12/20 11/13/20 11/13/20 18:59 06:59 18:59 Output Total 900 400 Balance -900 -400 Output: Urine 900 400 Other: Voiding Method External Catheter External Catheter # Voids 2 # Bowel Movements 1 1 - Exam GENERAL: The patient is drowsy but arousable oriented 1, not in any acute distress. Well developed, well nourished. HEENT: Pupils are round and equally reacting to light. EOMI. No scleral icterus. No conjunctival pallor. Normocephalic, atraumatic. No pharyngeal erythema. No thyromegaly. Dry skin and mucous membranes CARDIOVASCULAR: S1 and S2 present. No murmurs, rubs, or gallops. PULMONARY: Diminished breath sounds otherwise Chest is clear to auscultation, no wheezing or crackles. ABDOMEN: Soft, nontender, nondistended, normoactive bowel sounds. No palpable organomegaly. MUSCULOSKELETAL: No joint swelling or deformity. EXTREMITIES: No cyanosis, clubbing, or pedal edema. NEUROLOGICAL: Doesn't appear to have any focal deficits moving all 4 limbs although oriented times only 1 SKIN: Superficial stage II ulcer which doesn't appear to be infected on the left leg below the knee medial aspect, Kerlix dressing noted as patient was evaluated and dressed by wound care today - Labs CBC & Chem 7: 11/13/20 05:02 11/13/20 05:02 Labs: Abnormal Lab Results - Last 24 Hours (Table) 11/12/20 11/12/20 11/13/20 Range/Units 16:49 20:44 05:02 WBC 12.9 H (3.8-10.6) k/uL RBC 3.71 L (3.80-5.40) m/uL Hgb 10.3 L (11.4-16.0) gm/dL MCHC 29.1 L (31.0-37.0) g/dL Neutrophils # 11.9 H (1.3-7.7) k/uL Lymphocytes # 0.3 L (1.0-4.8) k/uL Sodium (137-145) mmol/L Carbon Dioxide (22-30) mmol/L BUN (7-17) mg/dL Creatinine (0.52-1.04) mg/dL Glucose (74-99) mg/dL POC Glucose (mg/dL) 220 H 252 H (75-99) mg/dL 11/13/20 11/13/20 11/13/20 Range/Units 05:02 06:04 07:18 WBC (3.8-10.6) k/uL RBC (3.80-5.40) m/uL Hgb (11.4-16.0) gm/dL MCHC (31.0-37.0) g/dL Neutrophils # (1.3-7.7) k/uL Lymphocytes # (1.0-4.8) k/uL Sodium 136 L (137-145) mmol/L Carbon Dioxide 31 H (22-30) mmol/L BUN 53 H (7-17) mg/dL Creatinine 1.08 H (0.52-1.04) mg/dL Glucose 179 H (74-99) mg/dL POC Glucose (mg/dL) 153 H 152 H (75-99) mg/dL 11/13/20 Range/Units 11:49 WBC (3.8-10.6) k/uL RBC (3.80-5.40) m/uL Hgb (11.4-16.0) gm/dL MCHC (31.0-37.0) g/dL Neutrophils # (1.3-7.7) k/uL Lymphocytes # (1.0-4.8) k/uL Sodium (137-145) mmol/L Carbon Dioxide (22-30) mmol/L BUN (7-17) mg/dL Creatinine (0.52-1.04) mg/dL Glucose (74-99) mg/dL POC Glucose (mg/dL) 108 H (75-99) mg/dL Assessment and Plan Assessment: -Altered mental status most probably secondary to toxic encephalopathy and possibly urinary tract infection patient will be continued on cefepime -Acute urinary tract infection with cultures growing E. coli and will continue ceftriaxone -Dehydration and hypovolemic hyponatremia, improved sodium is 136 today -Type 2 diabetes mellitus uncontrolled elevated blood sugars patient will continue on sliding scale along with Lantus 15 units of insulin. -leukocytosis probably secondary to to sepsis from urinary tract infection, trending down and white blood count is 12.9 -Hypertension -Left lower extremity wound; wound care following and recommending wound care to lower extremity with honey -Hyperthyroidism -peripheral vascular disease -COPD without any acute exacerbation -Chronic hypoxic and hypercapnic respiratory failure secondary to COPD. Patient usually uses 4 L of oxygen at home -Anxiety disorder -DVT prophylaxis with Lovenox Plan: Continue with current medications. Patient is maintained on IV cefepime and will continue as urine cultures finalized showing E. coli. Patient is currently on 4 L with 100% oxygen saturation. Pulmonary is following. Patient continues to be lethargic and somewhat confused and extremely weak and will have PT/OT reevaluate the patient. Patient may likely need rehab for some strengthening mobility and case management and social work following. Continue with sliding scale along with long-acting and monitor Accu-Cheks before meals and at bedtime and will repeat a.m. labs.
[2020-11-13 17:01] LABS: Glucose,Whole Blood 82 mg/dL (75-99)
[2020-11-13] MEDS: SODIUM CHLORIDE 0.9% 1,000 ML IV SCH (19:15)
[2020-11-14 00:08] LABS: Glucose,Whole Blood 170 mg/dL (75-99)
[2020-11-14] MEDS: INSULIN ASPART (NovoLOG) 100 UNIT/ML VIAL SQ SCH ×7 (00:15→17:57)
[2020-11-14] MEDS: DOCUSATE 100 MG CAP PO SCH ×2 (00:15→09:59)
[2020-11-14] MEDS: INSULIN DETEMIR (LEVEMIR) 100 UNIT/ML SYR SQ SCH (00:16)
[2020-11-14] MEDS: CEFEPIME 2 GM in SODIUM CHLORIDE 0.9% 100 ML IVPB SCH ×2 (00:29→09:59)
[2020-11-14] MEDS: LEVOTHYROXINE 75 MCG TAB PO SCH (05:19)
[2020-11-14 06:51] LABS: Glucose,Whole Blood 148 mg/dL (75-99)
[2020-11-14] MEDS: IPRATROPIUM-ALBUTEROL 3 ML NEB INHALATION SCH ×3 (08:13→16:46)
[2020-11-14] MEDS: SYMBICORT 160-4.5 MCG INHALER INHALATION SCH (08:13)
[2020-11-14] MEDS: LORATADINE 10 MG TAB PO SCH (09:59)
[2020-11-14] MEDS: ENOXAPARIN 40 MG/0.4 ML SYRINGE SQ SCH (09:59)
[2020-11-14] MEDS: ASPIRIN 325 MG TAB PO SCH (09:59)
[2020-11-14] MEDS: FAMOTIDINE 20 MG TAB PO SCH (09:59)
[2020-11-14] MEDS: NICOTINE 21MG/24HR PATCH TRANSDERM SCH (09:59)
[2020-11-14 10:45] LABS: Basophils % (A) 0 %; Eosinophils # (A) 0.1 k/uL (0-0.7); Eosinophils % (A) 0 %; HCT 35.2 % (34.0-46.0); HGB 10.7 gm/dL (11.4-16.0); Hypochromasia Marked; Lymphocytes # (A) 0.6 k/uL (1.0-4.8); Lymphocytes % (A) 3 %; MCH 29.1 pg (25.0-35.0); MCHC 30.3 g/dL (31.0-37.0); MCV 96.1 fL (80.0-100.0); Monocytes # (A) 0.7 k/uL (0-1.0); Monocytes % (A) 3 %; Neutrophils # (A) 18.3 k/uL (1.3-7.7); Neutrophils % (A) 92 %; Platelet Count 198 k/uL (150-450); RBC 3.66 m/uL (3.80-5.40); RDW 14.2 % (11.5-15.5); WBC 19.9 k/uL (3.8-10.6)
[2020-11-14 10:46] LABS: Potassium 3.9 mmol/L (3.5-5.1)
[2020-11-14 10:47] LABS: African American GFR (CKD) 68 (>60 ml/min/1.73 sqM); Anion Gap 3 mmol/L; Blood Urea Nitrogen 51 mg/dL (7-17); Calcium 8.7 mg/dL (8.4-10.2); Carbon Dioxide 33 mmol/L (22-30); Chloride 102 mmol/L (98-107); Glucose 294 mg/dL (74-99); Non-African American GFR(CKD) 59 (>60 ml/min/1.73 sqM); Sodium 138 mmol/L (137-145)
[2020-11-14 11:51] LABS: Glucose,Whole Blood 311 mg/dL (75-99)
--- NOTE | 2020-11-14 14:39 | P.PN ---
Subjective Progress Note Date: 11/14/20 Patient is a 75-year-old female alert oriented 1 came in with altered mental status patient lives with her and the son. Patient is able to void with fairly good history but definitely confused. Patient is sleepy. Patient doesn't have any fever chills denied any dysuria denied any suprapubic pain. Chest x-ray is within normal limits patient has leukocytosis with white blood cell count or going up to 26,000. He was admitted for urinary tract infection patient was started on Rocephin. Patient has a superficial wound stage II just below the knee on the medial aspect. This doesn't appear to be infected patient is hyponatremic clinically appears to be dehydrated as well. Patient is rec eiving IV fluids at this time. She and is on [place] of oxygen patient states she does use oxygen at home but can't tell me how many liters she uses 11/11/2020 Patient mental status appears to have improved a bit. Patient is probably alert oriented 2 [place] [id number], continue Rocephin, urine cultures are still pending. I do not have any basic metabolic profile available from today. Patient's blood glucose is better controlled today. Patient's blood pressure is low patient was will be started on IV fluids. 11/12/2020 Patient is seen and evaluated in follow-up is alert and oriented 2 and continues to be extremely lethargic although arousable. Patient states she has continued shortness of breath and is maintained on 3 L of oxygen via nasal cannula with 100% oxygen saturation. Patient was requiring BiPAP last night and will continue to use as needed. Blood pressures remain on the lower side but stable in the 90s systolic and will continue with conservative IV fluids as she was receiving fluids yesterday and became increasing short of breath requiring a dose of IV Lasix. Patient's urine cultures finalized showing E. coli and will continue ceftriaxone and transitioned to oral on discharge. Blood sugars being monitored before meals and at bedtime and last night's dose of long-acting was not given as her blood sugar was 111 and this morning's blood sugars are elevated again. Will continue with current regimen. Chest x-ray from last n ight shows small pleural effusions and pulmonary congestion increased compared to yesterday's exam consistent with heart failure. Limited on being able to give IV Lasix due to low blood pressures and will continue to monitor closely. Wound care also following him recommending local wound care to the left lower extremity. 11/13/2020 Patient is seen this morning in follow-up continues on 3-4 L of oxygen via nasal cannula and continues to be extremely lethargic with intermittent periods of being awake all continues to fall asleep during conversation. Patient is extremely weak requiring maximum assist and assistance with meals. Patient did not use BiPAP last night and will continue with current medication regimen. Urinary cultures have finalized showing E. coli and antibiotics are maintained in the form of cefepime and will continue. Pulmonary following closely. Continue with breathing treatments. Case management and Social work also following working on placement in accepting facilities and discharge planning needs once more stabilized. White blood count trending down at 12.9, hemoglobin is stable at 10.3, sodium is 136 current creatinine slightly improved at 1.08. 11/14/2020 Patient is seen in follow-up this morning a little more awake although continues to be confused and fatigues easily. Patient is currently maintained on 3 L of oxygen via nasal cannula and has not required BiPAP at night. Patient is afebrile. Patient continues to be extremely lethargic requiring almost maximum assistance. Patient is continued on cefepime as her urine culture finalized showing E. coli and will continue at this time. White blood count is once again elevated at 19.9 and will repeat a.m. labs. Hemoglobin is 10.7, sodium is 138 with a potassium of 3.9 and current creatinine is 0.94. Blood sugars were elevated today and patient is maintained on sliding scale along with pre-meal insulin and long-acting and will continue. Patient is maintained on breathing inhalational treatments and will continue. Case management and social work also following as patient will need placement for continued PT/OT therapy for weakness and instability. Patient has been accepted at [facility] on the [place]. Constitutional: Continued fatigue, denied any fever. Cardio vascular: denied any chest pain, palpitations Gastrointestinal denied any nausea vomiting Pulmonary: Reports intermittent shortness of breath cough Neurologic denied any new focal deficits, weakness Active Medications Acetaminophen (Acetaminophen Tab 325 Mg Tab) 650 mg PO Q6HR PRN PRN Reason: Fever and/ or Pain Last Admin: 11/12/20 17:17 Dose: 650 mg Documented by: Albuterol/Ipratropium (Ipratropium-Albuterol 3 Ml Neb) 3 ml INHALATION RT-Q4H PRN PRN Reason: Shortness Of Breath Or Wheezing Last Admin: 11/11/20 04:02 Dose: 3 ml Documented by: Albuterol/Ipratropium (Ipratropium-Albuterol 3 Ml Neb) 3 ml INHALATION RT-QID [facility] Last Admin: 11/14/20 11:44 Dose: 3 ml Documented by: Alprazolam (Alprazolam 0.25 Mg Tab) 0.25 mg PO TID PRN PRN Reason: Anxiety Last Admin: 11/11/20 18:15 Dose: 0.25 mg Documented by: Aspirin (Aspirin 325 Mg Tab) 325 mg PO Q48H [facility] Last Admin: 11/14/20 09:59 Dose: 325 mg Documented by: Budesonide/Formoterol Fumarate (Symbicort 160-4.5 Mcg Inhaler) 2 puff INHALATION RT-BID [facility] Last Admin: 11/14/20 08:13 Dose: 2 puff Documented by: Docusate Sodium (Docusate 100 Mg Cap) 100 mg PO BID [facility] Last Admin: 11/14/20 09:59 Dose: 100 mg Documented by: Enoxaparin Sodium (Enoxaparin 40 Mg/0.4 Ml Syringe) 40 mg SQ DAILY [facility] Last Admin: 11/14/20 09:59 Dose: 40 mg Documented by: Famotidine (Famotidine 20 Mg Tab) 20 mg PO DAILY [facility] Last Admin: 11/14/20 09:59 Dose: 20 mg Documented by: Sodium Chloride (Saline 0.9%) 1,000 mls @ 20 mls/hr IV .Q24H [facility] Last Admin: 11/13/20 19:15 Dose: Not Given Documented by: Cefepime HCl 2 gm/ Sodium (Chloride) 100 mls @ 25 mls/hr IVPB Q12H [facility] Last Admin: 11/14/20 09:59 Dose: 25 mls/hr Documented by: Insulin Aspart (Insulin Aspart (Novolog) 100 Unit/Ml Vial) 0 unit SQ ACHS [facility]; Protocol Last Admin: 11/14/20 12:20 Dose: 5 unit Documented by: Insulin Aspart (Insulin Aspart (Novolog) 100 Unit/Ml Vial) 5 unit SQ AC-TID [facility] Last Admin: 11/14/20 12:20 Dose: 5 unit Documented by: Insulin Detemir (Insulin Detemir (Levemir) 100 Unit/Ml Syr) 15 unit SQ HS [facility] Last Admin: 11/14/20 00:16 Dose: Not Given Documented by: Ketorolac Tromethamine (Ketorolac 0.5% Ophth Drops 5 Ml Btl) 1 drops BOTH EYES QID PRN PRN Reason: Itching Levothyroxine Sodium (Levothyroxine 75 Mcg Tab) 150 mcg PO DAILY@0630 [facility] Last Admin: 11/14/20 05:19 Dose: Not Given Documented by: Loratadine (Loratadine 10 Mg Tab) 10 mg PO DAILY [facility] Last Admin: 11/14/20 09:59 Dose: 10 mg Documented by: Naloxone HCl (Naloxone 0.4 Mg/Ml 1 Ml Vial) 0.2 mg IV Q2M PRN PRN Reason: Opioid Reversal Nicotine (Nicotine 21mg/24hr Patch) 1 patch TRANSDERM DAILY [facility] Last Admin: 11/14/20 09:59 Dose: 1 patch Documented by: Objective - Vital Signs Vital signs: Vital Signs Temp 98.1 F 11/14/20 07:05 Pulse 84 11/14/20 08:26 Resp 18 11/14/20 07:57 BP 119/63 11/14/20 07:05 Pulse Ox 99 11/14/20 07:05 Intake & Output 11/13/20 11/14/20 11/14/20 18:59 06:59 18:59 Output Total 450 550 Balance -450 -550 Output: Urine 450 550 Other: Voiding Method External Catheter External Catheter External Catheter - Exam GENERAL: The patient is drowsy but arousable oriented 1-2, not in any acute distress. Well developed, well nourished. Temp is 98.1F, pulse is 82, respirations are 18, blood pressure is 119/63, oxygen saturation is 99% on 3 L via nasal cannula. HEENT: Pupils are round and equally reacting to light. EOMI. No scleral icterus. No conjunctival pallor. Normocephalic, atraumatic. No pharyngeal erythema. No thyromegaly. Dry skin and mucous membranes CARDIOVASCULAR: S1 and S2 are muffled PULMONARY: Extremely Diminished breath sounds bilaterally with some coarse rhonchi noted ABDOMEN: Soft, nontender, nondistended, normoactive bowel sounds. No palpable organomegaly. MUSCULOSKELETAL: No joint swelling or deformity. EXTREMITIES: No cyanosis, clubbing, or pedal edema. NEUROLOGICAL: Doesn't appear to have any focal deficits moving all 4 limbs although oriented times only 1 SKIN: Superficial stage II ulcer which doesn't appear to be infected on the left leg below the knee medial aspect, Kerlix dressing noted - Labs CBC & Chem 7: 11/14/20 10:21 11/14/20 10:21 Labs: Abnormal Lab Results - Last 24 Hours (Table) 11/13/20 11/14/20 11/14/20 Range/Units 11:49 00:06 06:49 POC Glucose (mg/dL) 108 H 170 H 148 H (75-99) mg/dL Assessment and Plan Assessment: -Altered mental status most probably secondary to toxic encephalopathy and possibly urinary tract infection -Acute urinary tract infection with cultures growing E. coli -Dehydration and hypovolemic hyponatremia -Type 2 diabetes mellitus uncontrolled elevated blood sugars -leukocytosis probably secondary to sepsis from urinary tract infection -Hypertension -Left lower extremity wound -Hyperthyroidism -peripheral vascular disease -COPD without any acute exacerbation -Chronic hypoxic and hypercapnic respiratory failure secondary to COPD. Patient requires 4 L of oxygen at home -Anxiety disorder -DVT prophylaxis -Full code Recommendations and discussion: Recommend to continue with current medications, management, and symptomatic treatment. Pulmonary following closely. Patient is continued on IV cefepime for urinary culture showing E. coli and will continue at this time. White blood count is elevated today and will continue to monitor closely and recommend repeat labs. Patient remains afebrile. She continues to be extremely weak and will continue to follow with PT/OT therapy. Recommendations are for rehab and social work is following and patient has been accepted to [facility] on the [place]. We'll continue to monitor blood sugars with Accu-Cheks before meals and at bedtime and continue with current medication regimen. Due to multiple complex medical issues, prognosis is guarded. Further recommendations to follow.
--- NOTE | 2020-11-14 14:53 | P.PN ---
Subjective Progress Note Date: 11/14/20 75-year-old female patient, very much debilitated due to her advanced lung disease and COPD, well-known to me and I have taken care of this patient during her recent hospitalization when she came in with acute COPD exacerbation acute hypoxic and hypercapnic respiratory failure. She is typically on oxygen at home. She is a chronic smoker. She came into the emergency room because of altered mentation. Further investigation in the emergency yielded that the patient was having an underlying urine checked infection. UA was abnormal with elevated white cells. COVID-19 testing was negative. The patient +1 protein and +4 glucose and her urine. Rest of the blood work showed a troponin of 0.02. The patient's white cell count was elevated at 26 with a platelet count dropped down to 101 with a hemoglobin of 10.4. Correlation profile was normal. Serum bicarb was 32 with a BUN of 36 and a creatinine of 0.7. LFTs were normal. Albumin was low at 2.5. Blood sugar was 337. Chest x-ray was consistent with COPD there was no evidence of any airspace disease. The patient was given a total of 3 L of IV fluids in the emergency pH is currently producing some urine output. No hypotension. She was given a gram of Rocephin in the emergency department. Her current level of alertness is improved. She is able to answer some simple questions. She is unable to hold long conversations. She is e xtensive debilitated. She has history of falls. She has history of fractures secondary to falls. She may need assistance for activities of daily today life. She is edentulous. No reported aspiration. She is able to move all 4 extremities. No seizure activity. No neck stiffness. She is currently afebrile and she is hemodynamically On 11/11/2020, the patient is alert and oriented and she is aware of time and place. She is profoundly weak and she is having difficulties in grabbing object s, reaching, lifting and self-feeding. She is started on Rocephin for an underlying urinary tract infection. Urine cultures are still pending. Blood cultures also pending. Meanwhile, the white cell count is currently at 25 which is slightly improved compared to yesterday. Platelet count is at 127. Her proBNP level came at 943. Blood sugar is at 121. She is afebrile. She is hemodynamically stable. She is on IV fluids currently at the rate of 100 mL an hour of 0.9 saline. No respiratory distress at this point in time. On 11/12/2020 I'm seeing the patient for a follow-up. The patient was hospitalized for an E. coli UTI and the patient was on Rocephin. Yesterday afternoon, the patient became progressively more short of breath and hypoxic. Chest x-ray was done and showed interstitial edema. Blood is also showed some respiratory acidosis. She was briefly tried on BiPAP which he was able to tolerate for around 3 hours.. She is currently off the BiPAP. At that point, the patient was given Lasix and IV fluids TO KVO. SHE PRODUCING ADEQUATE AMOUNT OF URINE OUTPUT AND CURRENTLY SHE IS on 3 L of oxygen by nasal cannula with a pulse ox of 100%. The patient is in a negative fluid balance of at least 1.3 L since yesterday. She is currently on IV cefepime. Antibiotics were broadened yesterday. Blood pressure is adequate. Her temperature is afebrile. Hemodynamically stable. Clinically is improved compared to yesterday and is down to 23.9. Hemoglobin stable at 10.1. The patient otherwise has normal electrolytes. Creatinine is at 1.1 with mean of 46. Blood sugar is elevated at 305 the patient is doing minimal amount of communication. She remains encephalopathic and confused on and off. He was able to tell me her name 11/13/2020, patient is being seen for a follow-up. She is a 75-year-old here patient with advanced COPD with chronic hypoxic and hypercapnic respiratory failure who came in for a gram-negative UTI secondary to E. coli. The patient currently remains on IV cefepime. This morning, the patient is resting comfortably in bed. She is on oxygen at 4 L per minute nasal cannula and a pulse ox of 95-99%. She was diuresed adequately and the patient's has been in a negative fluid balance of 1.3 L over the past 24 hours. She did not require BiPAP overnight. She remains on IV cefepime for now. IV fluids are currently at KVO. She remains on Lovenox for DVT prophylaxis. She is extremely debilitated and weak and somewhat lethargic. White cell count dropped down to 12.9. He moves at 10.3. Platelet count is at 170. Renal function is also stable at 1.08 with a serum bicarb of 31 and a sodium level of 136. 11/14/2020, the patient is sitting up on a chair. Overall pulmonary status is unchanged. She has been COPD with chronic hypoxic and hypercapnic respiratory failure. Meanwhile she got treated for E. coli UTI and the patient is currently afebrile. The urine culture was positive for E. coli and the patient was treated with IV cefepime. No fever. The white cell count has been fluctuating and after being dropped down to 12.9 is up to 19 on today's evaluation. Nevertheless, the patient remains hemodynamically stable. Renal function is stable. Electrolytes are all stable. Blood sugar elevated at 294. That the patient would ultimately go to [facility] on the [place]. As mentioned earlier, she is on and off confused and she gets of vision encephalopathic. Nevertheless, she is able to communicate on today's evaluation she is able to answer simple questions and move lower extremities without any limitation. No focal neurological deficit. No signs of any CO2 narcosis. She has chronic hypercapnic respiratory failure. She is on oxygen at 3 L per minute nasal cannula. Objective - Vital Signs Vital signs: Vital Signs Temp 98.1 F 11/14/20 07:05 Pulse 110 H 11/14/20 11:56 Resp 18 11/14/20 07:57 BP 119/63 11/14/20 07:05 Pulse Ox 99 11/14/20 07:05 Intake & Output 11/13/20 11/14/20 11/14/20 18:59 06:59 18:59 Output Total 450 550 Balance -450 -550 Weight 54.431 kg Output: Urine 450 550 Other: Voiding Method External Catheter External Catheter External Catheter - Exam GENERAL EXAM: Alert, pleasant, 73-year-old white female, 3 L of oxygen with a pulse ox of 99% comfortable in no apparent distress. HEAD: Normocephalic/atraumatic. EYES: Normal reaction of pupils, equal size. Conjunctiva pink, sclera white. NOSE: Clear with pink turbinates. THROAT: No erythema or exudates. NECK: No masses, no JVD, no thyroid enlargement, no adenopathy. CHEST: No chest wall deformity. Symmetrical expansion. LUNGS: Equal air entry with diminished breath sounds. CVS: Regular rate and rhythm, normal S1 and S2, no gallops, no murmurs, no rubs ABDOMEN: Soft, nontender. No hepatosplenomegaly, normal bowel sounds, no guarding or rigidity. EXTREMITIES: No clubbing, no edema, no cyanosis, 2+ pulses and upper and lower extremities. MUSCULOSKELETAL: Muscle strength and tone normal. SPINE: No scoliosis or deformity SKIN: No rashes CENTRAL NERVOUS SYSTEM: Alert and oriented -3. No focal deficits, tone is normal in all 4 extremities. Has improved and the patient is communicating and following some simple commands and answering questions. PSYCHIATRIC: Alert and oriented -3. Appropriate affect. Impaired judgment and insight. - Labs CBC & Chem 7: 11/14/20 10:21 11/14/20 10:21 Labs: Abnormal Lab Results - Last 24 Hours (Table) 11/14/20 11/14/20 11/14/20 Range/Units 00:06 06:49 10:21 WBC 19.9 H (3.8-10.6) k/uL RBC 3.66 L (3.80-5.40) m/uL Hgb 10.7 L (11.4-16.0) gm/dL MCHC 30.3 L (31.0-37.0) g/dL Neutrophils # 18.3 H (1.3-7.7) k/uL Lymphocytes # 0.6 L (1.0-4.8) k/uL Carbon Dioxide (22-30) mmol/L BUN (7-17) mg/dL Glucose (74-99) mg/dL POC Glucose (mg/dL) 170 H 148 H (75-99) mg/dL 11/14/20 11/14/20 Range/Units 10:21 11:49 WBC (3.8-10.6) k/uL RBC (3.80-5.40) m/uL Hgb (11.4-16.0) gm/dL MCHC (31.0-37.0) g/dL Neutrophils # (1.3-7.7) k/uL Lymphocytes # (1.0-4.8) k/uL Carbon Dioxide 33 H (22-30) mmol/L BUN 51 H (7-17) mg/dL Glucose 294 H (74-99) mg/dL POC Glucose (mg/dL) 311 H (75-99) mg/dL Assessment and Plan Plan: #1. Altered mental status secondary to an underlying ECOLI urine tract infection. #2. The patient has advanced and end-stage COPD with chronic hypoxemic and hypercapnic respiratory failure related to advanced COPD, stage IV, with baseline FEV1 of 28% of predicted, oxygen at 3-4 L of O2 by nasal cannula. At some further decompensation respirator status and the patient developed hypoxemia and respiratory acidosis probably related to fluid overload and she responded nicely to diuretics. She is not utilizing BiPAP and she is back to 3 L of oxygen by nasal cannula. #3. Chronic and ongoing nicotine dependence, currently down to 2 cigarettes a day #4. Hypertension #5. Osteoarthritis #6. Hypothyroidism #7. Anxiety #8 frequent falls, for now the patient is bedbound #9 fracture in the left upper extremity status post removal of the casts #10 multiple areas of skin laceration largest in the left upper lower extremity, healed #11 hyperglycemia, likely diabetic in nature, currently on Levemir insulin Plan IV fluids to KVO Assistance with diet This continued IV cefepime and switch this patient to oral Levaquin to complete a total of 7 day course Sepsis improving Oxygen by nasal cannula at 3 L Continue with pulmonary toileting and deep breathing, monitor the pulmonary status and watch for any signs of CO2 narcosis and BiPAP is on standby Provide the patient incentive spirometer DuoNeb the less treatments around the clock COVID-19 testing by PCR was negative nicotine patch Sliding-scale insulin coverage with NovoLog and will start the patient on Levemir 15 units at bedtime and monitor the blood sugar control. Lovenox for DVT prophylaxis Patient is extremely debilitated. She has a body mass index of 19.4. Going to [facility] with the next 24-48 hours. Medicine is started on the patient's blood sugar control. Levemir insulin 15 units along with 5 units of NovoLog and sliding scale coverage. High risk for readmission. We'll definitely advised a poor status change to a DNR/DNI based on her very poor baseline performance and functional status. Pulmonary critical care services we'll sign off.
[2020-11-14 15:28] VITALS: BP 119/55; RESP 17; TEMP 97.5
--- NOTE | 2020-11-14 15:30 | P.DS ---
Providers Date of admission: 11/11/20 09:14 Expected date of discharge: 11/14/20 Attending physician: Chava Limon Consults: 11/10/20 05:03 Consult Physician Routine Consulting Provider: Chris Sears Consult Reason/Comments: known Do you want consulting provider notified?: Yes Primary care physician: Chris Sears Hospital Course: Final diagnosis -Altered mental status most probably secondary to toxic encephalopathy and possibly urinary tract infection -Acute urinary tract infection with sepsis, present on admission with cultures growing E. coli -Dehydration and hypovolemic hyponatremia -Type 2 diabetes mellitus uncontrolled elevated blood sugars -leukocytosis probably secondary to sepsis, present on admission from urinary tract infection -Hypertension -Left lower extremity wound -Hyperthyroidism -peripheral vascular disease -COPD without any acute exacerbation -Chronic hypoxic and hypercapnic respiratory failure secondary to COPD. Patient requires 4 L of oxygen at home -Anxiety disorder -DVT prophylaxis -Full code Discharge disposition Patient is being discharged in a stable condition with guarded prognosis to [facility] for continued PT/OT therapy. Patient will follow-up with Dr. Griffiths upon discharge. Patient is to continue with Levaquin daily for the next 5 days and then may discontinue . Patient will need close outpatient follow-up with pulmonary. Total time taken is greater than 35 minutes. Hospital course This is a 75-year-old female who was recently admitted with altered mental status and was found to have a urinary tract infection with sepsis present on admission. Patient's cultures finalized showing E. coli and was started on cefepime and will transition to oral Levaquin 500 mg daily for the next 5 days and then may discontinue. Patient is O2 dependent of 3-4 L via nasal cannula and had continued shortness of breath and briefly required BiPAP for 1 night. Patient has been maintained on 3 L for the last 2 days. Patient has been afebrile. Patient continues to have very poor oral intake requiring assistance with one-to-one supervision and head of the bed elevated 30-45 with risk for aspiration as she is extremely lethargic. Patient also requires pured dysphagia diet. Patient needs aggressive physical therapy and will be going to [facility] for continued PT/OT therapy. Patient's white blood count is 19.9 and recommend close outpatient follow-up in the next few days with repeat CBC and BMP to monitor kidney functions along with electrolytes closely. Blood sugars have been elevated and recommend to continue with sliding scale along with long-acting and Accu-Cheks before meals and at bedtime. Patient has been evaluated by pulmonary and cleared recommending close outpatient follow-up and follow-up in the clinic once discharged. CODE STATUS to be discussed with family and patient in the outpatient setting. Patient may benefit from palliative care. Currently no reports of chest pain, worsening shortness of breath, or palpitations. Patient is afebrile. No reports of nausea or vomiting and patient is tolerating diet. Patient will be going to [facility] on the [address] today. On exam vital signs are stable. Cardio S1, S2 are muffled. Respiratory system shows diminished breath sounds at the bases with scattered rhonchi noted. Abdomen is soft and nontender. Nervous system shows diffuse weakness. Please refer to medication reconciliation sheet for a list of medications. Patient Condition at Discharge: Fair Plan - Discharge Summary Discharge Rx Participant: No New Discharge Prescriptions: New Famotidine [Pepcid] 20 mg PO DAILY tab ALPRAZolam [Xanax] 0.25 mg PO TID PRN #6 tab PRN Reason: Anxiety Levofloxacin [Levaquin] 500 mg PO DAILY 5 Days #1 tab Acetaminophen Tab [Tylenol] 650 mg PO Q6HR PRN tab PRN Reason: Fever And/ Or Pain Continue Budesonide-Formot 160-4.5 Mcg [Symbicort 160-4.5 Mcg Inhaler] 2 puff INHALATION RT-BID #1 vial Levothyroxine Sodium [Synthroid] 150 mcg PO DAILY #30 tablet Loratadine [Claritin] 10 mg PO DAILY Docusate [Colace] 100 mg PO BID 30 Days #60 cap Nicotine 21Mg/24Hr Patch [Habitrol] 1 patch TRANSDERM DAILY #20 patch Insulin Detemir (Levemir) [Levemir] 15 unit SQ HS 30 Days #4 syr Albuterol Sulfate [Proair Hfa] 2 puff INHALATION RT-QID PRN PRN Reason: Shortness Of Breath Aspirin 325 mg PO Q48H Fluticasone/Salmeterol [Advair 250-50 Diskus] 1 puff INHALATION RT-BID Ketorolac 0.5% Ophth Soln [Acular 0.5%] 1 drop BOTH EYES QID PRN PRN Reason: Itching Ipratropium-Albuterol Nebulize [Duoneb 0.5 mg-3 mg/3 ml Soln] 3 ml INHALATION RT-QID 30 Days #120 ml Ipratropium-Albuterol Nebulize [Duoneb 0.5 mg-3 mg/3 ml Soln] 3 ml INHALATION RT-Q4H PRN ml PRN Reason: Shortness Of Breath Or Wheezing INSULIN ASPART (NovoLOG) [NovoLOG (formulary)] See Protocol SQ ACHS Discontinued lisinopriL [Zestril] 10 mg PO DAILY #30 tab predniSONE See Taper PO DIRECTED Discharge Medication List Budesonide-Formot 160-4.5 Mcg [Symbicort 160-4.5 Mcg Inhaler] 2 puff INHALATION RT-BID #1 vial 12/05/18 [Rx] Levothyroxine Sodium [Synthroid] 150 mcg PO DAILY #30 tablet 12/05/18 [Rx] Albuterol Sulfate [Proair Hfa] 2 puff INHALATION RT-QID PRN 09/25/20 [History] Aspirin 325 mg PO Q48H 09/25/20 [History] Fluticasone/Salmeterol [Advair 250-50 Diskus] 1 puff INHALATION RT-BID 10/23/20 [History] Ketorolac 0.5% Ophth Soln [Acular 0.5%] 1 drop BOTH EYES QID PRN 10/23/20 [History] Loratadine [Claritin] 10 mg PO DAILY 10/23/20 [History] Docusate [Colace] 100 mg PO BID 30 Days #60 cap 10/29/20 [Rx] Insulin Detemir (Levemir) [Levemir] 15 unit SQ HS 30 Days #4 syr 10/29/20 [Rx] Ipratropium-Albuterol Nebulize [Duoneb 0.5 mg-3 mg/3 ml Soln] 3 ml INHALATION RT-Q4H PRN ml 10/29/20 [Rx] Ipratropium-Albuterol Nebulize [Duoneb 0.5 mg-3 mg/3 ml Soln] 3 ml INHALATION RT-QID 30 Days #120 ml 10/29/20 [Rx] Nicotine 21Mg/24Hr Patch [Habitrol] 1 patch TRANSDERM DAILY #20 patch 10/29/20 [Rx] INSULIN ASPART (NovoLOG) [NovoLOG (formulary)] See Protocol SQ ACHS 11/10/20 [History] ALPRAZolam [Xanax] 0.25 mg PO TID PRN #6 tab 11/14/20 [Rx] Acetaminophen Tab [Tylenol] 650 mg PO Q6HR PRN tab 11/14/20 [Rx] Famotidine [Pepcid] 20 mg PO DAILY tab 11/14/20 [Rx] Levofloxacin [Levaquin] 500 mg PO DAILY 5 Days #1 tab 11/14/20 [Rx] Follow up Appointment(s)/Referral(s): Chris Sears MD [Primary Care Provider] - 1-2 days [facility] [NON-STAFF] - As Needed (Call to inquire about a shower transfer bench. ) Way[facility] [NON-STAFF] - As Needed (Call to inquire about a shower transfer bench. ) Ambulatory/Diagnostic Orders: Complete Blood Count w/diff [LAB.AMB] Time Frame: 2 Days, Location: None Selected Activity/Diet/Wound Care/Special Instructions: Patient is going to [facility] on [address] Activity as tolerated Continue consistent carb diet dysphasia 1 pured with one-to-one supervision and head of the bed elevated and aspiration precautions Continue with PT/OT therapy. Continue with local wound care to the left lower extremity with honey alginate with a saline moistened gauze and dry gauze then rolled gauze and secure paper tape changed Tuesday//Tuesday unless soiled Continue to monitor Accu-Cheks before meals and at bedtime and treat accordingly with sliding scale along with long-acting NovoLog sliding scale 0-150 equals 0 units 151-200 equals 2 units 201-250 equals 4 units 251-300 equals 6 units 301-350 equals 8 units 351-400 equals 10 units Please notify provider if blood sugar is 400 or above Patient will need close outpatient follow-up with pulmonary Follow-up primary care provider upon discharge Continue antibiotics for the next 5 days and then may discontinue Repeat labs to monitor electrolytes and white blood count closely Discharge Disposition: TRANSFER TO SNF/ECF
[2020-11-14 16:49] LABS: Glucose,Whole Blood 262 mg/dL (75-99)
[2020-11-14 16:57] VITALS: PULSE 112
== END 2020-11-14 19:33 | DRG 871 ==
LOC: EC 02:35 → 4SSUR 05:03 → OBSVTOIN 11-11 09:14 → 4SSUR 11-13 21:34
PROVIDERS: ADMIT Hospitalist; ATTEND Hospitalist
DX: A41.9 Sepsis, unspecified organism (principal); G92 Toxic encephalopathy; J44.1 Chronic obstructive pulmonary disease with (acute) exacerbation; N39.0 Urinary tract infection, site not specified; J96.11 Chronic respiratory failure with hypoxia; J96.12 Chronic respiratory failure with hypercapnia; L97.822 Non-pressure chronic ulcer of other part of left lower leg with fat layer exposed; E87.2 Acidosis; F05 Delirium due to known physiological condition; E87.1 Hypo-osmolality and hyponatremia; E11.51 Type 2 diabetes mellitus with diabetic peripheral angiopathy without gangrene; E11.622 Type 2 diabetes mellitus with other skin ulcer; E11.65 Type 2 diabetes mellitus with hyperglycemia; F41.9 Anxiety disorder, unspecified; B96.20 Unspecified Escherichia coli [E. coli] as the cause of diseases classified elsewhere; F17.200 Nicotine dependence, unspecified, uncomplicated; Z20.822 Contact with and (suspected) exposure to COVID-19; Z79.4 Long term (current) use of insulin; Z79.51 Long term (current) use of inhaled steroids; Z79.890 Hormone replacement therapy; Z79.899 Other long term (current) drug therapy; Z90.710 Acquired absence of both cervix and uterus; Z99.81 Dependence on supplemental oxygen; I10 Essential (primary) hypertension; E86.1 Hypovolemia; E86.0 Dehydration; E05.90 Thyrotoxicosis, unspecified without thyrotoxic crisis or storm; Z91.81 History of falling; Z74.01 Bed confinement status; D64.9 Anemia, unspecified
CPT/HCPCS: 36415; 36600; 71045; 80048; 80053; 81001; 82550; 82805; 83605; 83735; 83880; 84100; 84484; 85025; 85027; 85610; 85730; 87077; 87086; 87186; 87635; 93005; 94640; 94660; 96360; 99285

== ENCOUNTER 2020-11-14 22:24 | Inpatient (IN) | payer MEDICARE, BC ==
[2020-11-14 22:27] LABS: Glucose,Whole Blood 167 mg/dL (75-99)
--- NOTE | 2020-11-14 23:19 | ED ---
Altered Mental Status HPI - General Chief Complaint: Altered Mental Status Stated Complaint: Altered Mental Status Time Seen by Provider: 11/14/20 22:29 Source: EMS Mode of arrival: EMS Limitations: altered mental status - History of Present Illness Initial Comments: This patient is a 75-year-old woman who had been discharged from the hospital to [facility] [address] [facility]. She is a new patient there and reportedly differed from the report they were given. Patient sent here to be evaluated in relation to her mental status. Patient is not able to give any additional history. MD Complaint: altered mental status -: hour(s) Severity: moderate Context: history of similar presentation - Related Data Home Medications Medication Instructions Recorded Confirmed Albuterol Sulfate [Proair Hfa] 2 puff INHALATION RT-QID PRN 09/25/20 11/14/20 Aspirin 325 mg PO Q48H 09/25/20 11/14/20 Fluticasone/Salmeterol [Advair 1 puff INHALATION RT-BID 10/23/20 11/14/20 250-50 Diskus] Ketorolac 0.5% Ophth Soln [Acular 1 drop BOTH EYES QID PRN 10/23/20 11/14/20 0.5%] Loratadine [Claritin] 10 mg PO DAILY 10/23/20 11/14/20 INSULIN ASPART (NovoLOG) [NovoLOG See Protocol SQ ACHS 11/10/20 11/14/20 (formulary)] Previous Rx's Medication Instructions Recorded Budesonide-Formot 160-4.5 Mcg 2 puff INHALATION RT-BID #1 vial 12/05/18 [Symbicort 160-4.5 Mcg Inhaler] Levothyroxine Sodium [Synthroid] 150 mcg PO DAILY #30 tablet 12/05/18 Docusate [Colace] 100 mg PO BID 30 Days #60 cap 10/29/20 Insulin Detemir (Levemir) [Levemir] 15 unit SQ HS 30 Days #4 syr 10/29/20 Ipratropium-Albuterol Nebulize 3 ml INHALATION RT-Q4H PRN ml 10/29/20 [Duoneb 0.5 mg-3 mg/3 ml Soln] Ipratropium-Albuterol Nebulize 3 ml INHALATION RT-QID 30 Days 10/29/20 [Duoneb 0.5 mg-3 mg/3 ml Soln] #120 ml Nicotine 21Mg/24Hr Patch [Habitrol] 1 patch TRANSDERM DAILY #20 patch 10/29/20 Acetaminophen Tab [Tylenol] 650 mg PO Q6HR PRN tab 11/14/20 Levofloxacin [Levaquin] 500 mg PO DAILY 5 Days #1 tab 11/14/20 Folic Acid 1 mg PO DAILY@1200 tab 11/20/20 Multivitamins, Thera [Multivitamin 1 each PO DAILY@1200 tab 11/20/20 (formulary)] Pantoprazole [Protonix] 40 mg PO AC-[id number] tablet. 11/20/20 Thiamine [Vitamin B-1] 100 mg PO DAILY@1200 tab 11/20/20 predniSONE [Deltasone] 20 mg PO DAILY tab 11/20/20 Allergies Allergy/AdvReac Type Severity Reaction Status Date / Time bacitracin Allergy Rash/Hives Verified 11/14/20 23:11 [From Neosporin ([id number])] neomycin Allergy Rash/Hives Verified 11/14/20 23:11 [From Neosporin ([id number])] Penicillins Allergy Rash/Hives Verified 11/14/20 23:11 polymyxin B Allergy Rash/Hives Verified 11/14/20 23:11 [From Neosporin ([id number])] trimethoprim [From Polytrim] Allergy Rash/Hives Verified 11/14/20 23:11 levofloxacin [From Levaquin] AdvReac WEAKNESS Verified 11/14/20 23:11 ELDA/POLY/DEX Allergy Rash/Hives Uncoded 11/10/20 07:03 Review of Systems ROS Statement: Those systems with pertinent positive or pertinent negative responses have been documented in the HPI. ROS Other: All systems not noted in ROS Statement are negative. Limitations: ROS unobtainable due to patients medical condition (Patient not able to give any additional history) Past Medical History Past Medical History: Heart Failure, COPD, Diabetes Mellitus, Hypertension, Osteoarthritis (OA), Respiratory Disorder, Thyroid Disorder, Vascular Disorder Additional Past Medical History / Comment(s): Pt recently admitted to [facility] on 10/23/20 with acute exacerbation chronic COPD, acute on chronic hypoxic hypercarbic respiratory failure, acute purulent tracheobronchitis, possible new onset diabetes, hyponatremia/hypovolemic, hyperkalemia, severe constipation/obstipation. Other hx: Advanced COPD, chronic hypoxic respiratory failure, home oxygen, 2010 pericarditis, former smoker, hypo thyroidism, skeletal chest wall pain, chronic anxiety, anemia, PVD, past leg and foot wounds, recent L distal radius fracture/L knee wound sutures since removed, gout, confused at times per spouse and recently has been bedbound. History of Any Multi-Drug Resistant Organisms: None Reported Past Surgical History: Heart Catheterization, Hysterectomy, Tubal Ligation Additional Past Surgical History / Comment(s): 2011 cardiac cath, 2013 cardiac angiogram, colonoscopy/benign polypectomy, anal fistula repair, bilateral cataract removals/lens implants. Past Anesthesia/Blood Transfusion Reactions: Previous Problems w/ Anesthesia, Postoperative Nausea & Vomiting (PONV) Additional Past Anesthesia/Blood Transfusion Reaction / Comment(s): oxygen was "low" post op, nausea one time Past Psychological History: Anxiety Smoking Status: Former smoker Past Alcohol Use History: Unable to Obtain Past Drug Use History: Unable to Obtain - Past Family History Mother History Unknown: Yes Family Medical History: Cancer, Thyroid Disorder Additional Family Medical History / Comment(s): Liver Cancer Father History Unknown: Yes Family Medical History: Cancer General Exam General appearance: alert Head exam: Present: atraumatic, normocephalic Eye exam: Present: normal appearance, PERRL. Absent: scleral icterus, conjunctival injection ENT exam: Present: mucous membranes dry Neck exam: Present: normal inspection, full ROM Respiratory exam: Present: wheezes. Absent: respiratory distress, rales, rhonchi, stridor Cardiovascular Exam: Present: regular rate, normal rhythm, normal heart sounds. Absent: systolic murmur, diastolic murmur, rubs, gallop GI/Abdominal exam: Present: soft. Absent: distended, tenderness, guarding, rebound, rigid, mass Extremities exam: Present: normal inspection, normal capillary refill. Absent: pedal edema, calf tenderness Back exam: Present: normal inspection. Absent: CVA tenderness (R), CVA tenderness (L) Neurological exam: Present: altered, other (Patient is alert but not responding verbally. She can follow simple commands such as squeezing hands.). Absent: motor sensory deficit Expanded Neurological exam: Present: protecting the airway Speech: Present: expressive aphasia Cranial nerves: EOM's Intact: Normal, Gag Reflex: Normal Motor strength exam: RUE: 5, LUE: 5 Eye Response: (3) open to voice Motor Response: (6) obeys commands Verbal Response: incomprehensible sounds [place] Total: 11 Skin exam: Present: warm, dry, intact, normal color. Absent: rash Course Vital Signs 11/14/20 11/14/20 11/14/20 22:25 22:39 23:00 Temperature 97.2 F L Pulse Rate 90 92 85 Pulse Rate [ Left Supine] Respiratory 18 18 18 Rate Blood Pressure 118/59 127/71 107/50 O2 Sat by Pulse 96 95 95 Oximetry 11/15/20 11/15/20 00:00 02:26 Temperature Pulse Rate 80 Pulse Rate [ 83 Left Supine] Respiratory 16 16 Rate Blood Pressure 96/61 O2 Sat by Pulse 100 Oximetry Medical Decision Making - Medical Decision Making Patient is 75-year-old woman sent from correction for altered mental status. On the patient's exam she does appear to be mildly dehydrated. Patient also does appear to be hypercarbic and the labs to support this. Patient be admitted for COPD ED exacerbation with respiratory acidosis. Started on BiPAP here as well. - Lab Data Result diagrams: 11/16/20 05:43 11/20/20 07:01 Lab Results 11/14/20 11/14/20 11/14/20 Range/Units 22:26 23:06 23:06 WBC 19.6 H (3.8-10.6) k/uL RBC 3.91 (3.80-5.40) m/uL Hgb 10.8 L (11.4-16.0) gm/dL Hct 37.5 (34.0-46.0) % MCV 95.7 (80.0-100.0) fL MCH 27.6 (25.0-35.0) pg MCHC 28.9 L (31.0-37.0) g/dL RDW 14.3 (11.5-15.5) % Plt Count 217 (150-450) k/uL MPV 9.0 Neutrophils % 91 % Lymphocytes % 3 % Monocytes % 5 % Eosinophils % 0 % Basophils % 0 % Neutrophils # 17.9 H (1.3-7.7) k/uL Lymphocytes # 0.5 L (1.0-4.8) k/uL Monocytes # 1.0 (0-1.0) k/uL Eosinophils # 0.1 (0-0.7) k/uL Basophils # 0.0 (0-0.2) k/uL Hypochromasia Marked PT 9.6 (9.0-12.0) sec INR 0.9 (<1.2) APTT 20.8 L (22.0-30.0) sec Sample Site ABG pH (7.35-7.45) ABG pCO2 (35-45) mmHg ABG pO2 (83-108) mmHg ABG HCO3 (21-25) mmol/L ABG Total CO2 (19-24) mmol/L ABG O2 Saturation (94-97) % ABG Base Excess mmol/L Jorge Test VBG pH (7.31-7.41) VBG pCO2 (37-51) mmHg VBG HCO3 (24-28) mmol/L FiO2 % Sodium (137-145) mmol/L Potassium (3.5-5.1) mmol/L Chloride (98-107) mmol/L Carbon Dioxide (22-30) mmol/L Anion Gap mmol/L BUN (7-17) mg/dL Creatinine (0.52-1.04) mg/dL Est GFR (CKD-EPI)AfAm (>60 ml/min/1.73 sqM) Est GFR (CKD-EPI)NonAf (>60 ml/min/1.73 sqM) Glucose (74-99) mg/dL POC Glucose (mg/dL) 167 H (75-99) mg/dL POC Glu Mobile Engineer ID Pakistani, Anastasiya Calcium (8.4-10.2) mg/dL Total Bilirubin (0.2-1.3) mg/dL AST (14-36) U/L ALT (4-34) U/L Alkaline Phosphatase (38-126) U/L Troponin I (0.000-0.034) ng/mL Total Protein (6.3-8.2) g/dL Albumin (3.5-5.0) g/dL Coronavirus (PCR) (Not Detectd) 11/14/20 11/14/20 11/15/20 Range/Units 23:06 23:06 01:20 WBC (3.8-10.6) k/uL RBC (3.80-5.40) m/uL Hgb (11.4-16.0) gm/dL Hct (34.0-46.0) % MCV (80.0-100.0) fL MCH (25.0-35.0) pg MCHC (31.0-37.0) g/dL RDW (11.5-15.5) % Plt Count (150-450) k/uL MPV Neutrophils % % Lymphocytes % % Monocytes % % Eosinophils % % Basophils % % Neutrophils # (1.3-7.7) k/uL Lymphocytes # (1.0-4.8) k/uL Monocytes # (0-1.0) k/uL Eosinophils # (0-0.7) k/uL Basophils # (0-0.2) k/uL Hypochromasia PT (9.0-12.0) sec INR (<1.2) APTT (22.0-30.0) sec Sample Site ABG pH (7.35-7.45) ABG pCO2 (35-45) mmHg ABG pO2 (83-108) mmHg ABG HCO3 (21-25) mmol/L ABG Total CO2 (19-24) mmol/L ABG O2 Saturation (94-97) % ABG Base Excess mmol/L Jorge Test VBG pH 7.25 L (7.31-7.41) VBG pCO2 67 H (37-51) mmHg VBG HCO3 28 (24-28) mmol/L FiO2 % Sodium 136 L (137-145) mmol/L Potassium 4.1 (3.5-5.1) mmol/L Chloride 105 (98-107) mmol/L Carbon Dioxide 29 (22-30) mmol/L Anion Gap 2 mmol/L BUN 52 H (7-17) mg/dL Creatinine 0.84 (0.52-1.04) mg/dL Est GFR (CKD-EPI)AfAm 78 (>60 ml/min/1.73 sqM) Est GFR (CKD-EPI)NonAf 67 (>60 ml/min/1.73 sqM) Glucose 167 H (74-99) mg/dL POC Glucose (mg/dL) (75-99) mg/dL POC Glu Mobile Engineer ID Calcium 9.1 (8.4-10.2) mg/dL Total Bilirubin <0.1 L (0.2-1.3) mg/dL AST 17 (14-36) U/L ALT 11 (4-34) U/L Alkaline Phosphatase 168 H (38-126) U/L Troponin I <0.012 (0.000-0.034) ng/mL Total Protein 5.1 L (6.3-8.2) g/dL Albumin 2.3 L (3.5-5.0) g/dL Coronavirus (PCR) (Not Detectd) 11/15/20 11/15/20 Range/Units 02:10 12:58 WBC (3.8-10.6) k/uL RBC (3.80-5.40) m/uL Hgb (11.4-16.0) gm/dL Hct (34.0-46.0) % MCV (80.0-100.0) fL MCH (25.0-35.0) pg MCHC (31.0-37.0) g/dL RDW (11.5-15.5) % Plt Count (150-450) k/uL MPV Neutrophils % % Lymphocytes % % Monocytes % % Eosinophils % % Basophils % % Neutrophils # (1.3-7.7) k/uL Lymphocytes # (1.0-4.8) k/uL Monocytes # (0-1.0) k/uL Eosinophils # (0-0.7) k/uL Basophils # (0-0.2) k/uL Hypochromasia PT (9.0-12.0) sec INR (<1.2) APTT (22.0-30.0) sec Sample Site lrad ABG pH 7.33 L (7.35-7.45) ABG pCO2 61 H (35-45) mmHg ABG pO2 59 L* (83-108) mmHg ABG HCO3 32 H (21-25) mmol/L ABG Total CO2 34 H (19-24) mmol/L ABG O2 Saturation 90.1 L (94-97) % ABG Base Excess 5.9 mmol/L Jorge Test Yes VBG pH (7.31-7.41) VBG pCO2 (37-51) mmHg VBG HCO3 (24-28) mmol/L FiO2 32 % Sodium (137-145) mmol/L Potassium (3.5-5.1) mmol/L Chloride (98-107) mmol/L Carbon Dioxide (22-30) mmol/L Anion Gap mmol/L BUN (7-17) mg/dL Creatinine (0.52-1.04) mg/dL Est GFR (CKD-EPI)AfAm (>60 ml/min/1.73 sqM) Est GFR (CKD-EPI)NonAf (>60 ml/min/1.73 sqM) Glucose (74-99) mg/dL POC Glucose (mg/dL) (75-99) mg/dL POC Glu Mobile Engineer ID Calcium (8.4-10.2) mg/dL Total Bilirubin (0.2-1.3) mg/dL AST (14-36) U/L ALT (4-34) U/L Alkaline Phosphatase (38-126) U/L Troponin I (0.000-0.034) ng/mL Total Protein (6.3-8.2) g/dL Albumin (3.5-5.0) g/dL Coronavirus (PCR) Not Detected (Not Detectd) - EKG Data -: EKG Interpreted by Me EKG shows normal: sinus rhythm, axis (Normal), intervals (Normal), QRS complexes (Normal), ST-T waves (Normal) Rate: normal (Rate 85 bpm) Disposition Clinical Impression: COPD exacerbation, Hypercapnia, Dehydration Disposition: ADMITTED IP TO THIS [facility] Condition: Good
[2020-11-14 23:30] LABS: Basophils % (A) 0 %; Eosinophils # (A) 0.1 k/uL (0-0.7); Eosinophils % (A) 0 %; HCT 37.5 % (34.0-46.0); HGB 10.8 gm/dL (11.4-16.0); Hypochromasia Marked; Lymphocytes # (A) 0.5 k/uL (1.0-4.8); Lymphocytes % (A) 3 %; MCH 27.6 pg (25.0-35.0); MCHC 28.9 g/dL (31.0-37.0); MCV 95.7 fL (80.0-100.0); Monocytes % (A) 5 %; Neutrophils # (A) 17.9 k/uL (1.3-7.7); Neutrophils % (A) 91 %; Platelet Count 217 k/uL (150-450); RBC 3.91 m/uL (3.80-5.40); RDW 14.3 % (11.5-15.5); WBC 19.6 k/uL (3.8-10.6)
--- NOTE | 2020-11-14 23:40 | XR ---
EXAMINATION TYPE: XR chest 1V DATE OF EXAM: 11/14/2020 COMPARISON: 11/11/2020 HISTORY: Short of breath TECHNIQUE: FINDINGS: There is blunting of the costophrenic angles. There is some pulmonary vascular congestion. There are chest leads. Heart is not grossly enlarged. IMPRESSION: Congestive heart failure with pleural effusions. Pleural fluid increased compared to rece nt exam.
[2020-11-14 23:46] LABS: INR 0.9 (<1.2); Prothrombin Time 9.6 sec (9.0-12.0)
[2020-11-14 23:51] LABS: ALT 11 U/L (4-34); AST 17 U/L (14-36); African American GFR (CKD) 78 (>60 ml/min/1.73 sqM); Albumin 2.3 g/dL (3.5-5.0); Alkaline Phosphatase 168 U/L (38-126); Anion Gap 2 mmol/L; Blood Urea Nitrogen 52 mg/dL (7-17); Calcium 9.1 mg/dL (8.4-10.2); Carbon Dioxide 29 mmol/L (22-30); Chloride 105 mmol/L (98-107); Glucose 167 mg/dL (74-99); Non-African American GFR(CKD) 67 (>60 ml/min/1.73 sqM); Sodium 136 mmol/L (137-145); Total Bilirubin <0.1 mg/dL (0.2-1.3); Total Protein 5.1 g/dL (6.3-8.2)
--- NOTE | 2020-11-14 23:59 | CT ---
EXAMINATION TYPE: CT brain wo con DATE OF EXAM: 11/14/2020 COMPARISON: HISTORY: AMS CT DLP: 1186.4 mGycm Automated exposure control for dose reduction was used. Images obtained of the brain without contrast. Ventricles have normal size. There is no mass effect nor midline shift. There is no sign of intracran ial hemorrhage. There is mild cerebral atrophy. Calvarium is intact. The skull base is intact. There is some mucosal thickening in the paranasal sinuses. IMPRESSION: Cerebral atrophy. Sphenoid and maxillary sinusitis. No acute intracranial abnormality.
[2020-11-15 00:11] LABS: Partial Thromboplastin Time 20.8 sec (22.0-30.0)
[2020-11-15 00:12] LABS: Potassium 4.1 mmol/L (3.5-5.1)
[2020-11-15 01:38] LABS: VBG PH 7.25 (7.31-7.41)
[2020-11-15] MEDS ORDERED: methylPREDNISolone SOD SUCCI 125 MG/2 ML VIAL IV STA (01:52)
[2020-11-15] MEDS: methylPREDNISolone SOD SUCCI 125 MG/2 ML VIAL IV SCH ×2 (05:55→13:17)
[2020-11-15] MEDS: IPRATROPIUM-ALBUTEROL 3 ML NEB INHALATION SCH ×4 (08:49→20:40)
[2020-11-15] MEDS ORDERED: KETOROLAC 0.5% OPHTH DROPS 5 ML BTL BOTH EYES PRN (12:33)
[2020-11-15] MEDS ORDERED: ACETAMINOPHEN TAB 325 MG TAB PO PRN (12:33)
--- NOTE | 2020-11-15 12:33 | P.CNPUL ---
History of Present Illness Consult date: 11/15/20 Reason for consult: COPD History of present illness: This is a 75-year-old female patient with advanced COPD with chronic hypoxic and hypercapnic respiratory failure with his the hospitalist for an E. coli urinary tract infection. During the hospitalization, the patient had some altered mental status and some limited CO2 narcosis which ultimately recovered. The patient was transferred to [facility] and within a few hours she was transferred b k altered mentation. This of the blood work showed some mild leukocytosis with a white cell count 19.6. Otherwise blood work was essentially negative. The patient was immediately placed on BiPAP at a pressure of 10/5 cm of water. She is BiPAP throughout the night and this morning she is back on 3 L of oxygen by nasal cannula. She is awake and I think in my opinion she is back to her baseline. Her COPD is quite advanced and she has chronic hypoxic and hypercapnic respiratory failure. A repeat blood gases will be done to reevaluate her acid base status. She was placed back on bronchodilators and steroids. Note that she was supposed also to complete a course of Levaquin regarding an E. coli UTI. She is awake. She is slow in answering questions. She is arousable. She does not have heard dentures and as such she is unable to eat regular food. She is sipping on water for now. No aspiration has been noted. Review of Systems Constitutional: Denies chills, Denies fever looks a very poor physical status, a poor historian. Unable to provide detailed history. She follows only some simple commands and answer simple questions. No signs of any respiratory distress at this point in time. Eyes: denies blurred vision, denies pain Ears, nose, mouth and throat: Denies headache, Denies sore throat Cardiovascular: Denies chest pain, Denies shortness of breath Respiratory: Reports cough with sputum, Reports dyspnea, Reports home oxygen, Reports wheezing, Denies cough Gastrointestinal: Denies abdominal pain, Denies diarrhea, Denies nausea, Denies vomiting Genitourinary: Denies dysuria, Denies hematuria Musculoskeletal: Denies myalgias, a cast in the left upper extremity Integumentary: Denies pruritus, Denies rash, areas of skin laceration in the left foot and areas of skin abrasion related to a fall. Neurological: Denies numbness, generalized weakness and altered mentation time of admission currently she is able to answer questions and these are simple and the direct questions. Psychiatric: Denies anxiety, Denies depression Endocrine: Denies fatigue, Denies weight change Past Medical History Past Medical History: Heart Failure, COPD, Diabetes Mellitus, Hypertension, Osteoarthritis (OA), Respiratory Disorder, Thyroid Disorder, Vascular Disorder Additional Past Medical History / Comment(s): Pt recently admitted to [facility] on 10/23/20 with acute exacerbation chronic COPD, acute on chronic hypoxic hypercarbic respiratory failure, acute purulent tracheobronchitis, possible new onset diabetes, hyponatremia/hypovolemic, hyperkalemia, severe constipation/obstipation. Other hx: Advanced COPD, chronic hypoxic respiratory failure, home oxygen, 2010 pericarditis, former smoker, hypothyroidism, skeletal chest wall pain, chronic anxiety, anemia, PVD, past leg and foot wounds, recent L distal radius fracture/L knee wound sutures since removed, gout, confused at times per spouse and recently has been bedbound. History of Any Multi-Drug Resistant Organisms: None Reported Past Surgical History: Heart Catheterization, Hysterectomy, Tubal Ligation Additional Past Surgical History / Comment(s): 2011 cardiac cath, 2013 cardiac angiogram, colonoscopy/benign polypectomy, anal fistula repair, bilateral cataract removals/lens implants. Past Anesthesia/Blood Transfusion Reactions: Previous Problems w/ Anesthesia, Postoperative Nausea & Vomiting (PONV) Additional Past Anesthesia/Blood Transfusion Reaction / Comment(s): oxygen was "low" post op, nausea one time Past Psychological History: Anxiety Smoking Status: Former smoker Past Alcohol Use History: Unable to Obtain Past Drug Use History: Unable to Obtain - Past Family History Mother History Unknown: Yes Family Medical History: Cancer, Thyroid Disorder Additional Family Medical History / Comment(s): Liver Cancer Father History Unknown: Yes Family Medical History: Cancer Medications and Allergies Home Medications Medication Instructions Recorded Confirmed Type Budesonide-Formot 160-4.5 Mcg 2 puff INHALATION RT-BID #1 vial 12/05/18 11/14/20 Rx [Symbicort 160-4.5 Mcg Inhaler] Levothyroxine Sodium [Synthroid] 150 mcg PO DAILY #30 tablet 12/05/18 11/14/20 Rx Albuterol Sulfate [Proair Hfa] 2 puff INHALATION RT-QID PRN 09/25/20 11/14/20 History Aspirin 325 mg PO Q48H 09/25/20 11/14/20 History Fluticasone/Salmeterol [Advair 1 puff INHALATION RT-BID 10/23/20 11/14/20 History 250-50 Diskus] Ketorolac 0.5% Ophth Soln [Acular 1 drop BOTH EYES QID PRN 10/23/20 11/14/20 History 0.5%] Loratadine [Claritin] 10 mg PO DAILY 10/23/20 11/14/20 History Docusate [Colace] 100 mg PO BID 30 Days #60 cap 10/29/20 11/14/20 Rx Insulin Detemir (Levemir) [Levemir] 15 unit SQ HS 30 Days #4 syr 10/29/20 11/14/20 Rx Ipratropium-Albuterol Nebulize 3 ml INHALATION RT-Q4H PRN ml 10/29/20 11/14/20 Rx [Duoneb 0.5 mg-3 mg/3 ml Soln] Ipratropium-Albuterol Nebulize 3 ml INHALATION RT-QID 30 Days 10/29/20 11/14/20 Rx [Duoneb 0.5 mg-3 mg/3 ml Soln] #120 ml Nicotine 21Mg/24Hr Patch [Habitrol] 1 patch TRANSDERM DAILY #20 patch 10/29/20 11/14/20 Rx INSULIN ASPART (NovoLOG) [NovoLOG See Protocol SQ ACHS 11/10/20 11/14/20 History (formulary)] ALPRAZolam [Xanax] 0.25 mg PO TID PRN #6 tab 11/14/20 11/14/20 Rx Acetaminophen Tab [Tylenol] 650 mg PO Q6HR PRN tab 11/14/20 11/14/20 Rx Famotidine [Pepcid] 20 mg PO DAILY tab 11/14/20 11/14/20 Rx Levofloxacin [Levaquin] 500 mg PO DAILY 5 Days #1 tab 11/14/20 11/14/20 Rx Allergies Allergy/AdvReac Type Severity Reaction Status Date / Time bacitracin Allergy Rash/Hives Verified 11/14/20 23:11 [From Neosporin ([id number])] neomycin Allergy Rash/Hives Verified 11/14/20 23:11 [From Neosporin ([id number])] Penicillins Allergy Rash/Hives Verified 11/14/20 23:11 polymyxin B Allergy Rash/Hives Verified 11/14/20 23:11 [From Neosporin ([id number])] trimethoprim [From Polytrim] Allergy Rash/Hives Verified 11/14/20 23:11 levofloxacin [From Levaquin] AdvReac WEAKNESS Verified 11/14/20 23:11 ELDA/POLY/DEX Allergy Rash/Hives Uncoded 11/10/20 07:03 Physical Exam Vitals: Vital Signs Temp Pulse Pulse Resp BP BP Pulse Ox 11/15/20 11:44 88 11/15/20 11:37 80 11/15/20 11:25 98.2 F 98 16 121/64 99 11/15/20 09:11 88 11/15/20 08:55 83 11/15/20 08:00 96 11/15/20 04:19 97.6 F 83 16 114/71 96 11/15/20 02:26 83 16 11/15/20 00:00 80 16 96/61 100 11/14/20 23:00 85 18 107/50 95 11/14/20 22:39 92 18 127/71 95 11/14/20 22:25 97.2 F L 90 18 118/59 96 Intake and Output 11/14/20 11/15/20 11/15/20 22:59 06:59 14:59 Intake Total 0 Balance 0 Intake: Oral 0 Other: Voiding Method Diaper # Voids 1 # Bowel Movements 1 Weight 65.771 kg GENERAL EXAM: Alert, pleasant, 73-year-old white female, 3 L of oxygen with a pulse ox of 99% comfortable in no apparent distress. HEAD: Normocephalic/atraumatic. EYES: Normal reaction of pupils, equal size. Conjunctiva pink, sclera white. NOSE: Clear with pink turbinates. THROAT: No erythema or exudates. NECK: No masses, no JVD, no thyroid enlargement, no adenopathy. CHEST: No chest wall deformity. Symmetrical expansion. LUNGS: Equal air entry with diminished breath sounds. CVS: Regular rate and rhythm, normal S1 and S2, no gallops, no murmurs, no rubs ABDOMEN: Soft, nontender. No hepatosplenomegaly, normal bowel sounds, no guarding or rigidity. EXTREMITIES: No clubbing, no edema, no cyanosis, 2+ pulses and upper and lower extremities. MUSCULOSKELETAL: Muscle strength and tone normal. SPINE: No scoliosis or deformity SKIN: No rashes CENTRAL NERVOUS SYSTEM: Alert and oriented -3. No focal deficits, tone is normal in all 4 extremities. Has improved and the patient is communicating and following some simple commands and answering questions. PSYCHIATRIC: Alert and oriented -3. Appropriate affect. Impaired judgment and insight. Results - Laboratory Findings CBC and BMP: 11/14/20 23:06 11/14/20 23:06 ABG WBC 19.6 k/uL (3.8-10.6) H 11/14/20 23:06 RBC 3.91 m/uL (3.80-5.40) 11/14/20 23:06 Hgb 10.8 gm/dL (11.4-16.0) L 11/14/20 23:06 Hct 37.5 % (34.0-46.0) 11/14/20 23:06 MCV 95.7 fL (80.0-100.0) 11/14/20 23:06 MCH 27.6 pg (25.0-35.0) 11/14/20 23:06 MCHC 28.9 g/dL (31.0-37.0) L 11/14/20 23:06 RDW 14.3 % (11.5-15.5) 11/14/20 23:06 Plt Count 217 k/uL (150-450) 11/14/20 23:06 MPV 9.0 11/14/20 23:06 Neutrophils % 91 % 11/14/20 23:06 Lymphocytes % 3 % 11/14/20 23:06 Monocytes % 5 % 11/14/20 23:06 Eosinophils % 0 % 11/14/20 23:06 Basophils % 0 % 11/14/20 23:06 Neutrophils # 17.9 k/uL (1.3-7.7) H 11/14/20 23:06 Lymphocytes # 0.5 k/uL (1.0-4.8) L 11/14/20 23:06 Monocytes # 1.0 k/uL (0-1.0) 11/14/20 23:06 Eosinophils # 0.1 k/uL (0-0.7) 11/14/20 23:06 Basophils # 0.0 k/uL (0-0.2) 11/14/20 23:06 Hypochromasia Marked 11/14/20 23:06 PT 9.6 sec (9.0-12.0) 11/14/20 23:06 INR 0.9 (<1.2) 11/14/20 23:06 APTT 20.8 sec (22.0-30.0) L 11/14/20 23:06 VBG pH 7.25 (7.31-7.41) L 11/15/20 01:20 VBG pCO2 67 mmHg (37-51) H 11/15/20 01:20 VBG HCO3 28 mmol/L (24-28) 11/15/20 01:20 Sodium 136 mmol/L (137-145) L 11/14/20 23:06 Potassium 4.1 mmol/L (3.5-5.1) 11/14/20 23:06 Chloride 105 mmol/L (98-107) 11/14/20 23:06 Carbon Dioxide 29 mmol/L (22-30) 11/14/20 23:06 Anion Gap 2 mmol/L 11/14/20 23:06 BUN 52 mg/dL (7-17) H 11/14/20 23:06 Creatinine 0.84 mg/dL (0.52-1.04) 11/14/20 23:06 Est GFR (CKD-EPI)AfAm 78 (>60 ml/min/1.73 sqM) 11/14/20 23:06 Est GFR (CKD-EPI)NonAf 67 (>60 ml/min/1.73 sqM) 11/14/20 23:06 Glucose 167 mg/dL (74-99) H 11/14/20 23:06 POC Glucose (mg/dL) 167 mg/dL (75-99) H 11/14/20 22:26 POC Glu Tab Cutter ID Anastasiya Cope 11/14/20 22:26 Calcium 9.1 mg/dL (8.4-10.2) 11/14/20 23:06 Total Bilirubin <0.1 mg/dL (0.2-1.3) L 11/14/20 23:06 AST 17 U/L (14-36) 11/14/20 23:06 ALT 11 U/L (4-34) 11/14/20 23:06 Alkaline Phosphatase 168 U/L (38-126) H 11/14/20 23:06 Troponin I <0.012 ng/mL (0.000-0.034) 11/14/20 23:06 Total Protein 5.1 g/dL (6.3-8.2) L 11/14/20 23:06 Albumin 2.3 g/dL (3.5-5.0) L 11/14/20 23:06 Coronavirus (PCR) Not Detected (Not Detectd) 11/15/20 02:10 PT/INR, D-dimer PT 9.6 sec (9.0-12.0) 11/14/20 23:06 INR 0.9 (<1.2) 11/14/20 23:06 Abnormal lab findings: Abnormal Labs 11/14/20 11/14/20 11/14/20 22:26 23:06 23:06 WBC 19.6 H Hgb 10.8 L MCHC 28.9 L Neutrophils # 17.9 H Lymphocytes # 0.5 L APTT 20.8 L VBG pH VBG pCO2 Sodium BUN Glucose POC Glucose (mg/dL) 167 H Total Bilirubin Alkaline Phosphatase Total Protein Albumin 11/14/20 11/15/20 23:06 01:20 WBC Hgb MCHC Neutrophils # Lymphocytes # APTT VBG pH 7.25 L VBG pCO2 67 H Sodium 136 L BUN 52 H Glucose 167 H POC Glucose (mg/dL) Total Bilirubin <0.1 L Alkaline Phosphatase 168 H Total Protein 5.1 L Albumin 2.3 L Assessment and Plan Plan: #1. Altered mental status , multifactorial, doubt any acute neurologic event. She has metabolic encephalopathy probably with a component of episodic CO2 narcosis. #2. The patient has advanced and end-stage COPD with chronic hypoxemic and hypercapnic respiratory failure related to advanced COPD, stage IV, with baseline FEV1 of 28% of predicted, oxygen at 3-4 L of O2 by nasal cannula. #3. Chronic and ongoing nicotine dependence, currently down to 2 cigarettes a day #4. Hypertension #5. Osteoarthritis #6. Hypothyroidism #7. Anxiety #8 frequent falls, for now the patient is bedbound #9 fracture in the left upper extremity status post removal of the casts #10 multiple areas of skin laceration largest in the left upper lower extremity, healed #11 DM2 on Levemir insulin Plan IV fluids to KVO Recheck ABGs on 3 L of oxygen by nasal cannula to assess her underlying acid base status Continue antibiotics with Levaquin Used BiPAP overnight at a pressure of 10/5 cm of water and intermittently during the day Obviously the patient's condition is quite advanced and she has very poor based on performance status and she is quite debilitated and her COPD is end-stage. She may have episodic episodes CO2 narcosis. Recommended hospice care. High risk for readmission. We'll definitely advised a change at least in the code status to DNR/DNI based on her very poor baseline performance and function al status.
[2020-11-15] MEDS ORDERED: FUROSEMIDE 10 MG/ML 4 ML VIAL IV STA (12:36)
[2020-11-15 13:00] LABS: ABG Base Excess 5.9 mmol/L; ABG HCO3 32 mmol/L (21-25); ABG Oxygen Saturation 90.1 % (94-97); ABG PCO2 61 mmHg (35-45); ABG PH 7.33 (7.35-7.45); ABG TCO2 34 mmol/L (19-24); Allen Test Performed? Yes
[2020-11-15 13:09] LABS: ABG PO2 59 mmHg (83-108)
[2020-11-15] MEDS: predniSONE 20 MG TAB PO SCH (13:34)
[2020-11-15] MEDS: LEVOTHYROXINE 75 MCG TAB PO SCH (13:34)
[2020-11-15] MEDS: NICOTINE 21MG/24HR PATCH TRANSDERM SCH (13:34)
[2020-11-15] MEDS: HEPARIN SODIUM,PORCINE/PF 5,000 UNIT/0.5 ML SYRINGE SQ SCH (13:34)
[2020-11-15] MEDS: LEVOFLOXACIN 500 MG TAB PO SCH (13:48)
[2020-11-15 18:00] LABS: Glucose,Whole Blood 526 mg/dL (75-99)
[2020-11-15] MEDS: INSULIN ASPART (NovoLOG) 100 UNIT/ML VIAL SQ SCH ×2 (18:17→21:51)
[2020-11-15] MEDS: PANTOPRAZOLE 40 MG TABLET PO SCH (18:18)
--- NOTE | 2020-11-15 18:27 | HP ---
HISTORY AND PHYSICAL DATE OF SERVICE: 11/15/2020. CHIEF COMPLAINT: Change in mental status. HISTORY OF PRESENT ILLNESS: This 75-year-old woman with a past medical history of multiple medical problems was recently admitted with COPD exacerbation with hypoxic respiratory failure and as well as E coli UTI. The patient also had CO2 narcosis and the patient treated well. The patient improved significantly. Patient was sent to [facility] the [facility]. The patient transferred back because of change in mental status. The patient was started on BiPAP with some improvement in sensorium and the patient is being admitted for further evaluation and treatment. The patient is slightly confused at this time, unable to give a coherent history. Most of the history is taken from my discussion with the with staff and review of the charts at this time. Patient is also followed by Dr. Sears as a primary care. PAST MEDICAL HISTORY: History of COPD, diabetes type 2, hypertension, DJD, history of respiratory failure, history of vascular disorder, cardiac catheterization. MEDICATIONS: Prior to admission: Home medications are: Albuterol, loratadine, Synthroid, Levaquin, DuoNeb, Levemir, NovoLog, fluticasone, Pepcid, Colace, aspirin Tylenol, Xanax. ALLERGIES: Bactroban, neomycin, polymyxin, Levaquin. FAMILY HISTORY: History of cancer, thyroid disease, liver cancer. SOCIAL HISTORY: Social history per chart: smoking and occasional alcohol intake. REVIEW OF SYSTEMS: Could not be obtained. PHYSICAL EXAMINATION: Patient is conscious but mildly confused. Pulse 98, blood pressure 120/62, respirations 16, temperature 98.2, pulse ox 98% on room air. HEENT is conjunctivae normal. NECK: No JVD. CARDIOVASCULAR: S1, S2 muffled. RESPIRATION: Breath sounds diminished in the bases. Bilateral scattered rhonchi and crackles. ABDOMEN: Soft, nontender. LEGS are no edema. No swelling. NERVOUS SYSTEM: Diffusely weak. SKIN: No ulcer, rash or bleeding. JOINTS: No active deforming arthropathy. LABS: CO2 is 59 with ABG, pH of 7.33, otherwise sodium 136. ASSESSMENT: 1. Chronic obstructive pulmonary disease exacerbation with acute hypoxic hypercarbic respiratory failure. 2. Acute metabolic encephalopathy secondary to hypercarbia. 3. History of recent urinary tract infection. 4. History of recent sepsis and multiple complex medical issues. 5. Hyponatremia. 6. Hypoalbuminemia with mild protein calorie malnutrition. 7. Increased WBC. 8. Anemia of chronic disease, normocytic. 9. History of congestive heart failure. 10.History of chronic obstructive pulmonary disease, end-stage. 11.Diabetes mellitus type 2. 12.Hypertension. 13.History of degenerative joint disease. 14.History of chronic hypoxic respiratory failure on home O2 nasal cannula. 15.History of anxiety. 16.History of nicotine dependence. RECOMMENDATIONS AND DISCUSSION: This 75-year-old woman who presented with multiple complex medical issues, at this time I recommend to continue current medications, management and symptomatic treatment. Optimize the bronchodilator treatment. Continue the BiPAP. Monitor blood sugars closely. Otherwise, resume the rest of medications. Guarded prognosis because of multiple complex medical issues. Further recommendations to follow. A copy of this dictation being forwarded to Dr. Griffiths who is following the patient in the ECF. MMPHU / BERTINN: [id number] /
[2020-11-15] MEDS ORDERED: INSULIN REGULAR 100 UNIT/ML VIAL IV ONE (18:30)
[2020-11-15] MEDS ORDERED: INSULIN ASPART (NovoLOG) 100 UNIT/ML VIAL SQ ONE ×2 (18:30→20:00)
[2020-11-15] MEDS ORDERED: INSULIN DETEMIR (LEVEMIR) 100 UNIT/ML SYR SQ ONE (18:30)
[2020-11-15 19:21] LABS: Glucose,Whole Blood 420 mg/dL (75-99)
[2020-11-15] MEDS: DOCUSATE 100 MG CAP PO SCH (20:20)
[2020-11-15] MEDS ORDERED: INSULIN DETEMIR (LEVEMIR) 100 UNIT/ML SYR SQ SCH (21:00)
[2020-11-15 21:25] LABS: Glucose,Whole Blood 312 mg/dL (75-99)
[2020-11-16] MEDS: HEPARIN SODIUM,PORCINE/PF 5,000 UNIT/0.5 ML SYRINGE SQ SCH ×4 (01:34→23:32)
[2020-11-16] MEDS: LEVOTHYROXINE 75 MCG TAB PO SCH (06:06)
[2020-11-16 06:34] LABS: Basophils % (A) 0 %; Eosinophils % (A) 0 %; HCT 33.1 % (34.0-46.0); HGB 10.4 gm/dL (11.4-16.0); Hypochromasia Moderate; Lymphocytes # (A) 0.6 k/uL (1.0-4.8); Lymphocytes % (A) 3 %; MCH 28.7 pg (25.0-35.0); MCHC 31.3 g/dL (31.0-37.0); MCV 91.6 fL (80.0-100.0); Mean Platelet Volume 8.6; Monocytes # (A) 1.3 k/uL (0-1.0); Monocytes % (A) 6 %; Neutrophils # (A) 20.5 k/uL (1.3-7.7); Neutrophils % (A) 90 %; Platelet Count 279 k/uL (150-450); RBC 3.62 m/uL (3.80-5.40); RDW 14.2 % (11.5-15.5); WBC 22.7 k/uL (3.8-10.6)
[2020-11-16 07:46] LABS: Glucose,Whole Blood 156 mg/dL (75-99)
[2020-11-16] MEDS: IPRATROPIUM-ALBUTEROL 3 ML NEB INHALATION SCH ×4 (08:11→20:33)
[2020-11-16] MEDS: NICOTINE 21MG/24HR PATCH TRANSDERM SCH (08:50)
[2020-11-16] MEDS: PANTOPRAZOLE 40 MG TABLET PO SCH (08:51)
[2020-11-16] MEDS: THIAMINE 100 MG TAB PO SCH (08:52)
[2020-11-16] MEDS: FOLIC ACID 1 MG TAB PO SCH (08:52)
[2020-11-16] MEDS: INSULIN ASPART (NovoLOG) 100 UNIT/ML VIAL SQ SCH ×4 (08:52→20:27)
[2020-11-16] MEDS: LORATADINE 10 MG TAB PO SCH (08:52)
[2020-11-16] MEDS: predniSONE 20 MG TAB PO SCH (08:52)
[2020-11-16] MEDS: MULTIVITAMINS, THERA 1 EACH TAB PO SCH (08:52)
[2020-11-16] MEDS: ASPIRIN 325 MG TAB PO SCH (08:53)
[2020-11-16] MEDS ORDERED: FAMOTIDINE 20 MG TAB PO SCH (09:00)
[2020-11-16] MEDS: DOCUSATE 100 MG CAP PO SCH ×2 (09:01→20:29)
[2020-11-16 09:59] LABS: African American GFR (CKD) 62.9 (60.0-200.0); Anion Gap 10.7 mmol/L (4.00-12.00); Calcium 8.9 mg/dL (8.7-10.3); Carbon Dioxide 26.3 mmol/L (21.6-31.8); Non-African American GFR(CKD) 54.3 (60.0-200.0); Potassium 4.7 mmol/L (3.5-5.5)
--- NOTE | 2020-11-16 11:34 | P.PN ---
Subjective Progress Note Date: 11/16/20 This is a 75-year-old female patient with advanced COPD with chronic hypoxic and hypercapnic respiratory failure with his the hospitalist for an E. coli urinary tract infection. During the hospitalization, the patient had some altered mental status and some limited CO2 narcosis which ultimately recovered. The patient was transferred to [facility] and within a few hours she was transferred back altered mentation. This of the blood work showed some mild leukocytosis with a white cell count 19.6. Otherwise blood work was essentially negative. The patient was immediately placed on BiPAP at a pressure of 10/5 cm of water. She is BiPAP throughout the night and this morning she is back on 3 L of oxygen by nasal cannula. She is awake and I think in my opinion she is back to her baseline. Her COPD is quite advanced and she has chronic hypoxic and hypercapnic respiratory failure. A repeat blood gases will be done to reevaluate her acid base status. She was placed back on bronchodilators and st eroids. Note that she was supposed also to complete a course of Levaquin regarding an E. coli UTI. She is awake. She is slow in answering questions. She is arousable. She does not have heard dentures and as such she is unable to eat regular food. She is sipping on water for now. No aspiration has been noted. 11/16/2020, the patient is awake but she doesn't communicate at all alive. She can acid simple questions if she is asked the same question repetitively. She is not showing any signs of respiratory distress. Blood gases from yesterday was noted. No significant respiratory acidosis. She is utilizing the BiPAP on and off during the day and continuously at nighttime at a pressure of 12/5 with an FiO2 of 30%. She is on bronchodilators and steroids pages also on Levaquin. She needs assistance with activities of daily today life even with feeding.The ABG showed a pH of 7.33 with a pCO2 of 61 and pO2 of 59. This is consistent with chronic hypercapnic respiratory failure. Objective - Vital Signs Vital signs: Vital Signs Temp 97.4 F L 11/16/20 05:00 Pulse 80 11/16/20 08:22 Resp 18 11/16/20 05:00 BP 151/87 11/16/20 05:00 Pulse Ox 100 11/16/20 08:13 Intake & Output 11/15/20 11/16/20 11/16/20 18:59 06:59 18:59 Intake Total 0 Balance 0 Intake: Oral 0 Other: Voiding Method Diaper Diaper Diaper # Voids 3 0 # Bowel Movements 0 - Exam GENERAL EXAM: Alert, pleasant, 73-year-old white female, 3 L of oxygen with a pulse ox of 99% comfortable in no apparent distress. HEAD: Normocephalic/atraumatic. EYES: Normal reaction of pupils, equal size. Conjunctiva pink, sclera white. NOSE: Clear with pink turbinates. THROAT: No erythema or exudates. NECK: No masses, no JVD, no thyroid enlargement, no adenopathy. CHEST: No chest wall deformity. Symmetrical expansion. LUNGS: Equal air entry with diminished breath sounds. CVS: Regular rate and rhythm, normal S1 and S2, no gallops, no murmurs, no rubs ABDOMEN: Soft, nontender. No hepatosplenomegaly, normal bowel sounds, no guarding or rigidity. EXTREMITIES: No clubbing, no edema, no cyanosis, 2+ pulses and upper and lower extremities. MUSCULOSKELETAL: Muscle strength and tone normal. SPINE: No scoliosis or deformity SKIN: No rashes CENTRAL NERVOUS SYSTEM: Alert and oriented -3. No focal deficits, tone is normal in all 4 extremities. Has improved and the patient is communicating and following some simple commands and answering questions. PSYCHIATRIC: Alert and oriented -3. Appropriate affect. Impaired judgment and insight. - Labs CBC & Chem 7: 11/16/20 05:43 11/16/20 05:43 Labs: Abnormal Lab Results - Last 24 Hours (Table) 11/15/20 11/15/20 11/15/20 Range/Units 12:58 17:54 19:19 WBC (3.8-10.6) k/uL RBC (3.80-5.40) m/uL Hgb (11.4-16.0) gm/dL Hct (34.0-46.0) % Neutrophils # (1.3-7.7) k/uL Lymphocytes # (1.0-4.8) k/uL Monocytes # (0-1.0) k/uL ABG pH 7.33 L (7.35-7.45) ABG pCO2 61 H (35-45) mmHg ABG pO2 59 L* (83-108) mmHg ABG HCO3 32 H (21-25) mmol/L ABG Total CO2 34 H (19-24) mmol/L ABG O2 Saturation 90.1 L (94-97) % BUN (9.0-27.0) mg/dL Est GFR (CKD-EPI)NonAf (60.0-200.0) BUN/Creatinine Ratio (12.00-20.00) Ratio Glucose (70-110) mg/dL POC Glucose (mg/dL) 526 H 420 H (75-99) mg/dL 11/15/20 11/16/20 11/16/20 Range/Units 21:23 05:43 05:43 WBC 22.7 H (3.8-10.6) k/uL RBC 3.62 L (3.80-5.40) m/uL Hgb 10.4 L (11.4-16.0) gm/dL Hct 33.1 L (34.0-46.0) % Neutrophils # 20.5 H (1.3-7.7) k/uL Lymphocytes # 0.6 L (1.0-4.8) k/uL Monocytes # 1.3 H (0-1.0) k/uL ABG pH (7.35-7.45) ABG pCO2 (35-45) mmHg ABG pO2 (83-108) mmHg ABG HCO3 (21-25) mmol/L ABG Total CO2 (19-24) mmol/L ABG O2 Saturation (94-97) % BUN 57.0 H (9.0-27.0) mg/dL Est GFR (CKD-EPI)NonAf 54.3 L (60.0-200.0) BUN/Creatinine Ratio 57.00 H (12.00-20.00) Ratio Glucose 148 H (70-110) mg/dL POC Glucose (mg/dL) 312 H (75-99) mg/dL 11/16/20 Range/Units 07:44 WBC (3.8-10.6) k/uL RBC (3.80-5.40) m/uL Hgb (11.4-16.0) gm/dL Hct (34.0-46.0) % Neutrophils # (1.3-7.7) k/uL Lymphocytes # (1.0-4.8) k/uL Monocytes # (0-1.0) k/uL ABG pH (7.35-7.45) ABG pCO2 (35-45) mmHg ABG pO2 (83-108) mmHg ABG HCO3 (21-25) mmol/L ABG Total CO2 (19-24) mmol/L ABG O2 Saturation (94-97) % BUN (9.0-27.0) mg/dL Est GFR (CKD-EPI)NonAf (60.0-200.0) BUN/Creatinine Ratio (12.00-20.00) Ratio Glucose (70-110) mg/dL POC Glucose (mg/dL) 156 H (75-99) mg/dL Microbiology - Last 24 Hours (Table) 11/14/20 23:06 Blood Culture - Preliminary Blood No Growth after 24 hours 11/14/20 23:06 Blood Culture - Preliminary Blood No Growth after 24 hours Assessment and Plan Plan: #1. Altered mental status , multifactorial, doubt any acute neurologic event. She has metabolic encephalopathy probably with a component of episodic CO2 narcosis. #2. The patient has advanced and end-stage COPD with chronic hypoxemic and hypercapnic respiratory failure related to advanced COPD, stage IV, with baseline FEV1 of 28% of predicted, oxygen at 3-4 L of O2 by nasal cannula. #3. Chronic and ongoing nicotine dependence, currently down to 2 cigarettes a day #4. Hypertension #5. Osteoarthritis #6. Hypothyroidism #7. Anxiety #8 frequent falls, for now the patient is bedbound #9 fracture in the left upper extremity status post removal of the casts #10 multiple areas of skin laceration largest in the left upper lower extremity, healed #11 DM2 on Levemir insulin Plan Continue same treatment for now. I think this is the patient's baseline and there is no signs of any decompensation. IV fluids to KVO Recheck ABGs on 3 L of oxygen by nasal cannula to assess her underlying acid base status Continue antibiotics with Levaquin Used BiPAP overnight at a pressure of 12/5 cm of water and intermittently during the day Obviously the patient's condition is quite advanced and she has very poor based on performance status and she is quite debilitated and her COPD is end-stage. She may have episodic episodes CO2 narcosis. Recommended hospice care. High risk for readmission. We'll definitely advised a change at least in the code status to DNR/DNI based on her very poor baseline performance and functional status. No further adjustments from the pulmonary standpoint.
[2020-11-16 11:55] LABS: Glucose,Whole Blood 316 mg/dL (75-99)
[2020-11-16] MEDS: LEVOFLOXACIN 500 MG TAB PO SCH (12:49)
--- NOTE | 2020-11-16 14:08 | PN ---
PROGRESS NOTE DATE OF SERVICE: 11/16/2020 This 75 -year-old woman was admitted with COPD acute exacerbation as well as change in mental status, metabolic encephalopathy, hypercarbia, is being closely monitored at this time. Dr. Hicks is following the patient closely. The patient is on BiPAP at this time on and off. The patient is unable to give a coherent history. The patient is extremely weak. Lab obrien WBC still elevated at 22.7. Glucose elevated at 316. PAST MEDICAL HISTORY: Reviewed. REVIEW OF SYSTEMS: CARDIOVASCULAR: No angina or palpitations. RESPIRATION: As mentioned earlier. GI as mentioned earlier. : As mentioned earlier. NERVOUS SYSTEM: No numbness or weakness. CURRENT MEDICATIONS: Reviewed and include: Tylenol, DuoNeb, aspirin, Colace, folic acid, heparin, NovoLog, Levemir. Other medications reviewed. Doses are reviewed. REVIEW OF SYMPTOMS: Could not be taken, the patient is stuporous, arousable. PHYSICAL EXAMINATION: Pulse is 88, blood pressure 140/70, respirations 20, temperature 98 degrees, pulse ox 98% on 3 L. HEENT: Conjunctivae normal. NECK: No JVD. CARDIOVASCULAR: S1, S2 muffled. RESPIRATORY: Breath sounds diminished in the bases. Bilateral scattered rhonchi and crackles. ABDOMEN: Soft, nontender. Nervous system: No focal deficits. LAB STUDIES: WBC 20.7, hemoglobin 10.4, otherwise Accu-Cheks noted. ASSESSMENT: 1. Chronic obstructive pulmonary disease acute exacerbation with acute hypoxic hypercarbic respiratory failure. 2. Acute metabolic encephalopathy secondary to hypercarbia, status post BiPAP. 3. History of recent urinary tract infection. 4. Diabetes mellitus type 2 uncontrolled with severe hyperglycemia. 5. History of recent sepsis with multiple complex medical issues. 6. Hyponatremia. 7. Hypoalbuminemia with mild protein calorie malnutrition. 8. Increased WBC. 9. Anemia of chronic disease, normocytic. 10.History of congestive heart failure. 11.History of chronic obstructive pulmonary disease, end-stage. 12.Diabetes mellitus type 2. 13.Hypertension. 14.History of degenerative joint disease. 15.History of chronic hypoxic respiratory failure on oxygen nasal cannula. 16.History of anxiety. 17.History of nicotine dependence. RECOMMENDATIONS AND DISCUSSION: Recommend to continue current medications, management and symptomatic treatment. Otherwise, at this time, monitor blood sugars closely. Increase the dose of Lantus. Otherwise, we will continue to monitor. Continue rest of medications. Guarded prognosis. Use BiPAP on and off. DVT prophylaxis. Further recommendations to follow. Oral steroids to be continued. MMODL / IJN: [id number] /
[2020-11-16] MEDS: INSULIN DETEMIR (LEVEMIR) 100 UNIT/ML SYR SQ SCH ×2 (14:24→20:28)
[2020-11-16 18:05] LABS: Glucose,Whole Blood 325 mg/dL (75-99)
[2020-11-16 20:20] LABS: Glucose,Whole Blood 403 mg/dL (75-99)
[2020-11-16 20:20] LABS: Glucose,Whole Blood 340 mg/dL (75-99)
[2020-11-17] MEDS: LEVOTHYROXINE 75 MCG TAB PO SCH (05:51)
[2020-11-17 07:27] LABS: Glucose,Whole Blood 51 mg/dL (75-99)
[2020-11-17] MEDS: IPRATROPIUM-ALBUTEROL 3 ML NEB INHALATION SCH ×4 (07:38→19:37)
[2020-11-17 07:57] LABS: Glucose,Whole Blood 119 mg/dL (75-99)
[2020-11-17] MEDS: INSULIN ASPART (NovoLOG) 100 UNIT/ML VIAL SQ SCH ×4 (08:00→21:37)
[2020-11-17] MEDS: PANTOPRAZOLE 40 MG TABLET PO SCH (08:13)
[2020-11-17] MEDS: NICOTINE 21MG/24HR PATCH TRANSDERM SCH (08:13)
[2020-11-17] MEDS: DOCUSATE 100 MG CAP PO SCH ×2 (08:13→21:38)
[2020-11-17] MEDS: HEPARIN SODIUM,PORCINE/PF 5,000 UNIT/0.5 ML SYRINGE SQ SCH ×2 (08:13→18:16)
[2020-11-17] MEDS: predniSONE 20 MG TAB PO SCH (08:13)
[2020-11-17] MEDS: LORATADINE 10 MG TAB PO SCH (08:13)
--- NOTE | 2020-11-17 11:08 | P.PN ---
Subjective Progress Note Date: 11/17/20 This is a 75-year-old female patient with advanced COPD with chronic hypoxic and hypercapnic respiratory failure with his the hospitalist for an E. coli urinary tract infection. During the hospitalization, the patient had some altered mental status and some limited CO2 narcosis which ultimately recovered. The patient was transferred to [facility] and within a few hours she was transferred back altered mentation. This of the blood work showed some mild leukocytosis with a white cell count 19.6. Otherwise blood work was essentially negative. The patient was immediately placed on BiPAP at a pressure of 10/5 cm of water. She is BiPAP throughout the night and this morning she is back on 3 L of oxygen by nasal cannula. She is awake and I think in my opinion she is back to her baseline. Her COPD is quite advanced and she has chronic hypoxic and hypercapnic respiratory failure. A repeat blood gases will be done to reevaluate her acid base status. She was placed back on bronchodilators and st eroids. Note that she was supposed also to complete a course of Levaquin regarding an E. coli UTI. She is awake. She is slow in answering questions. She is arousable. She does not have heard dentures and as such she is unable to eat regular food. She is sipping on water for now. No aspiration has been noted. 11/16/2020, the patient is awake but she doesn't communicate at all alive. She can acid simple questions if she is asked the same question repetitively. She is not showing any signs of respiratory distress. Blood gases from yesterday was noted. No significant respiratory acidosis. She is utilizing the BiPAP on and off during the day and continuously at nighttime at a pressure of 12/5 with an FiO2 of 30%. She is on bronchodilators and steroids pages also on Levaquin. She needs assistance with activities of daily today life even with feeding.The ABG showed a pH of 7.33 with a pCO2 of 61 and pO2 of 59. This is consistent with chronic hypercapnic respiratory failure. 11/17/2020, the patient is much more awake and alert and communicating. Less sleepy. She slept on the BiPAP overnight. She is currently on 3 L of oxygen by nasal cannula. No new complaints. Still on bronchodilators and steroids. Trying to feed herself and she is able to swallow. Objective - Vital Signs Vital signs: Vital Signs Temp 98.6 F 11/17/20 05:00 Pulse 82 11/17/20 07:50 Resp 20 11/17/20 05:00 BP 93/57 11/17/20 05:00 Pulse Ox 94 L 11/17/20 07:39 Intake & Output 11/16/20 11/17/20 11/17/20 18:59 06:59 18:59 Other: Voiding Method Diaper Diaper # Voids 4 3 - Exam GENERAL EXAM: Alert, pleasant, 73-year-old white female, 3 L of oxygen with a pulse ox of 99% comfortable in no apparent distress. HEAD: Normocephalic/atraumatic. EYES: Normal reaction of pupils, equal size. Conjunctiva pink, sclera white. NOSE: Clear with pink turbinates. THROAT: No erythema or exudates. NECK: No masses, no JVD, no thyroid enlargement, no adenopathy. CHEST: No chest wall deformity. Symmetrical expansion. LUNGS: Equal air entry with diminished breath sounds. CVS: Regular rate and rhythm, normal S1 and S2, no gallops, no murmurs, no rubs ABDOMEN: Soft, nontender. No hepatosplenomegaly, normal bowel sounds, no guarding or rigidity. EXTREMITIES: No clubbing, no edema, no cyanosis, 2+ pulses and upper and lower extremities. MUSCULOSKELETAL: Muscle strength and tone normal. SPINE: No scoliosis or deformity SKIN: No rashes CENTRAL NERVOUS SYSTEM: Alert and oriented -3. No focal deficits, tone is normal in all 4 extremities. Has improved and the patient is communicating and following some simple commands and answering questions. PSYCHIATRIC: Alert and oriented -3. Appropriate affect. Impaired judgment and insight. - Labs CBC & Chem 7: 11/16/20 05:43 11/16/20 05:43 Labs: Abnormal Lab Results - Last 24 Hours (Table) 11/16/20 11/16/20 11/16/20 Range/Units 11:43 18:04 20:17 POC Glucose (mg/dL) 316 H 325 H 403 H (75-99) mg/dL 11/16/20 11/17/20 11/17/20 Range/Units 20:19 07:25 07:54 POC Glucose (mg/dL) 340 H 51 L 119 H (75-99) mg/dL Microbiology - Last 24 Hours (Table) 11/14/20 23:06 Blood Culture - Preliminary Blood No Growth after 48 hours 11/14/20 23:06 Blood Culture - Preliminary Blood No Growth after 48 hours Assessment and Plan Plan: #1. Altered mental status , multifactorial, doubt any acute neurologic event. She has metabolic encephalopathy probably with a component of episodic CO2 narcosis. #2. The patient has advanced and end-stage COPD with chronic hypoxemic and hypercapnic respiratory failure related to advanced COPD, stage IV, with baseline FEV1 of 28% of predicted, oxygen at 3-4 L of O2 by nasal cannula. #3. Chronic and ongoing nicotine dependence, currently down to 2 cigarettes a day #4. Hypertension #5. Osteoarthritis #6. Hypothyroidism #7. Anxiety #8 frequent falls, for now the patient is bedbound #9 fracture in the left upper extremity status post removal of the casts #10 multiple areas of skin laceration largest in the left upper lower extremity, healed #11 DM2 on Levemir insulin Plan Continue same treatment for now. Clinically much more alert and awake compared to yesterday. IV fluids to KVO Recheck ABGs on 3 L of oxygen by nasal cannula to assess her underlying acid base status Continue antibiotics with Levaquin Used BiPAP overnight at a pressure of 12/5 cm of water and intermittently during the day Obviously the patient's condition is quite advanced and she has very poor based on performance status and she is quite debilitated and her COPD is end-stage. She may have episodic episodes CO2 narcosis. Recommended hospice care based on the fact that her lung disease is quite advanced on her condition is end-stage. High risk for readmission. We'll definitely advised a change at least in the code status to DNR/DNI based on her very poor baseline performance and functional status. No further adjustments from the pulmonary standpoint.
[2020-11-17 11:27] LABS: Glucose,Whole Blood 169 mg/dL (75-99)
[2020-11-17] MEDS: INSULIN DETEMIR (LEVEMIR) 100 UNIT/ML SYR SQ SCH ×2 (13:25→21:38)
[2020-11-17] MEDS: FOLIC ACID 1 MG TAB PO SCH (14:05)
[2020-11-17] MEDS: THIAMINE 100 MG TAB PO SCH (14:05)
[2020-11-17] MEDS: MULTIVITAMINS, THERA 1 EACH TAB PO SCH (14:06)
[2020-11-17] MEDS: LEVOFLOXACIN 500 MG TAB PO SCH (14:06)
[2020-11-17 17:40] LABS: Glucose,Whole Blood 234 mg/dL (75-99)
--- NOTE | 2020-11-17 18:42 | PN ---
PROGRESS NOTE DATE OF SERVICE: 11/17/2020 INTERVAL HISTORY: This is a 75-year-old woman who was admitted with COPD acute exacerbation, acute hypoxic respiratory failure. Also had acute metabolic encephalopathy. The patient's sensorium is slightly improved at this time. No chest pain. No palpitations. No fever. PHYSICAL EXAMINATION: GENERAL: Patient is alert and oriented times one. VITAL SIGNS: Pulse 81, blood pressure 109/62, respirations 19, temperature 98.1, pulse ox 93% on 4 liters. HEENT: Conjunctivae normal. Oral mucosa moist. NECK: No jugular venous distention. No carotid bruits. No lymph node enlargement. RESPIRATORY: Breath sounds diminished at the bases. A few scattered rhonchi and crackles. Expiratory wheezing. HEART: S1 and S2, muffled. ABDOMEN: Soft. EXTREMITIES: No edema, no swelling. NERVOUS: No focal deficits. LAB STUDIES: WBC 2.7, hemoglobin 10.4. Other labs are noted. ABGs noted. ASSESSMENT: 1. Chronic obstructive pulmonary disease exacerbation with acute hypoxic hypercarbic respiratory failure. 2. Acute metabolic encephalopathy secondary to hypercarbia, status post BiPAP. 3. History of recent urinary tract infection. 4. Diabetes type 2 uncontrolled with severe hyperglycemia. 5. History of recent sepsis with multiple complex medical issues. 6. Hyponatremia. 7. Hypoalbuminemia with mild protein calorie malnutrition. 8. Increased WBC. 9. Anemia of chronic disease normocytic. 10.History of congestive heart failure. 11.History of chronic obstructive pulmonary disease, end-stage. 12.Hypertension. 13.History of degenerative joint disease. 14.Chronic hypoxic respiratory failure on oxygen nasal cannula 2 liters. 15.History of anxiety. 16.History of nicotine dependence. RECOMMENDATION AND DISCUSSION: Recommend to continue current management and continue symptomatic treatment. Continue the bronchodilators. Continue with steroids. Follow closely with Dr. Hicks. Continue with BiPAP. The blood sugar has been improved at this time. We will continue to monitor. Further recommendations to follow. The patient is on insulin 20 twice a day. MMODL / IJN: [id number] /
[2020-11-17 20:56] LABS: Glucose,Whole Blood 197 mg/dL (75-99)
[2020-11-18] MEDS: HEPARIN SODIUM,PORCINE/PF 5,000 UNIT/0.5 ML SYRINGE SQ SCH ×4 (01:04→23:47)
[2020-11-18] MEDS: IPRATROPIUM-ALBUTEROL 3 ML NEB INHALATION SCH ×4 (05:00→20:14)
[2020-11-18] MEDS: LEVOTHYROXINE 75 MCG TAB PO SCH (06:14)
[2020-11-18] MEDS ORDERED: DEXTROSE 50% SYRINGE 50 ML IVP ONE ×2 (07:00→07:04)
[2020-11-18 07:10] LABS: Glucose,Whole Blood 196 mg/dL (75-99)
[2020-11-18 07:10] LABS: Glucose,Whole Blood 20 mg/dL (75-99)
[2020-11-18] MEDS ORDERED: DEXTROSE 50% SYRINGE 50 ML IVP STA (07:10)
[2020-11-18 07:16] LABS: Glucose,Whole Blood 127 mg/dL (75-99)
[2020-11-18 07:36] LABS: Glucose,Whole Blood 289 mg/dL (75-99)
[2020-11-18] MEDS: PANTOPRAZOLE 40 MG TABLET PO SCH (08:39)
[2020-11-18] MEDS: LORATADINE 10 MG TAB PO SCH (08:40)
[2020-11-18] MEDS: DOCUSATE 100 MG CAP PO SCH ×2 (08:40→21:44)
[2020-11-18] MEDS: ASPIRIN 325 MG TAB PO SCH (08:40)
[2020-11-18] MEDS: predniSONE 20 MG TAB PO SCH (08:40)
[2020-11-18] MEDS: NICOTINE 21MG/24HR PATCH TRANSDERM SCH ×2 (08:40→09:05)
[2020-11-18] MEDS: FOLIC ACID 1 MG TAB PO SCH (08:41)
[2020-11-18] MEDS: MULTIVITAMINS, THERA 1 EACH TAB PO SCH (08:41)
[2020-11-18] MEDS: THIAMINE 100 MG TAB PO SCH (08:41)
[2020-11-18] MEDS: INSULIN DETEMIR (LEVEMIR) 100 UNIT/ML SYR SQ SCH (08:46)
[2020-11-18] MEDS: INSULIN ASPART (NovoLOG) 100 UNIT/ML VIAL SQ SCH ×4 (10:58→21:58)
[2020-11-18 12:08] LABS: Glucose,Whole Blood 145 mg/dL (75-99)
[2020-11-18] MEDS: LEVOFLOXACIN 500 MG TAB PO SCH (13:49)
--- NOTE | 2020-11-18 14:23 | P.PN ---
Subjective Progress Note Date: 11/18/20 Principal diagnosis: Altered mental status, multifactorial This is a 75-year-old female patient with advanced COPD with chronic hypoxic and hypercapnic respiratory failure with his the hospitalist for an E. coli urinary tract infection. During the hospitalization, the patient had some altered mental status and some limited CO2 narcosis which ultimately recovered. The patient was transferred to [facility] and within a few hours she was transferred back altered mentation. This of the blood work showed some mild leukocytosis with a white cell count 19.6. Otherwise blood work was essentially negative. The patient was immediately placed on BiPAP at a pressure of 10/5 cm of water. She is BiPAP throughout the night and this morning she is back on 3 L of oxygen by nasal cannula. She is awake and I think in my opinion she is back to her baseline. Her COPD is quite advanced and she has chronic hypoxic and hypercapnic respiratory failure. A repeat blood gases will be done to reevaluate her acid base status. She was placed back on bronchodilators and steroids. Note that she was supposed also to complete a course of Levaquin regarding an E. coli UTI. She is awake. She is slow in answering questions. She is arousable. She does not have heard dentures and as such she is unable to eat regular food. She is sipping on water for now. No aspiration has been noted. 11/16/2020, the patient is awake but she doesn't communicate at all alive. She can acid simple questions if she is asked the same question repetitively. She is not showing any signs of respiratory distress. Blood gases from yesterday was noted. No significant respiratory acidosis. She is utilizing the BiPAP on and off during the day and continuously at nighttime at a pressure of 12/5 with an FiO2 of 30%. She is on bronchodilators and steroids pages also on Levaquin. She needs assistance with activities of daily today life even with feeding.The ABG showed a pH of 7.33 with a pCO2 of 61 and pO2 of 59. This is consistent with chronic hypercapnic respiratory failure. 11/17/2020, the patient is much more awake and alert and communicating. Less sleepy. She slept on the BiPAP overnight. She is currently on 3 L of oxygen by nasal cannula. No new complaints. Still on bronchodilators and steroids. Trying to feed herself and she is able to swallow. On 11/18/2020 patient seen in follow-up on medical surgical floor. She is awake, she is responding verbally, she is only oriented to self, she is unsure of the place and time. Appears to be in no acute respiratory distress, she is currently on 4 L of oxygen a pulse ox of 96%. Did not require BiPAP support last night, did require BiPAP support the night before. No rhonchi no wheezing on today's exam, last chest x-ray from 11/06/2020 showed blunting of the costophrenic angles, some pulmonary vascular congestion consistent with CHF with small pleural effusions. No fever or chills overnight. Patient did have a episode of hypoglycemia this morning, and her blood sugar was only 20 at around 06 59 this morning. This was treated per protocol, and currently her blood sugar is 145 before lunch. Her Levemir has been adjusted, she is currently getting 20 units daily at 7:00 in the morning. She is also on a sliding scale. She is on oral prednisone 20 mg daily, Levaquin 500 milligrams daily and Symbicort and DuoNeb breathing treatments. Objective - Vital Signs Vital signs: Vital Signs Temp 98.6 F 11/17/20 19:55 Pulse 79 11/18/20 11:39 Resp 18 11/18/20 05:00 BP 143/68 11/18/20 05:00 Pulse Ox 96 11/18/20 11:30 Intake & Output 11/17/20 11/18/20 11/18/20 18:59 06:59 18:59 Intake Total 400 1330 Balance 400 1330 Intake: Oral 400 1330 Other: Voiding Method Diaper Diaper # Voids 2 2 - Exam GENERAL EXAM: Alert, pleasant, 75-year-old female patient, extremely debilitated, still having labored breathing while in the BiPAP although her level of consciousness is improved while being on a BiPAP. Currently off BiPAP and a 4 L of supplemental oxygen She has occasional shakes and jerks. She is responsive. She is interactive. As mentioned earlier, she is a poor hygienic state. She has areas of skin laceration and abrasions related to a fall, and skin is less indurated over the left anterior knee area and the patient is wearing a cast on her left upper extremity related to a fall. She had a fracture that approximately a month ago. HEAD: Normocephalic/atraumatic. EYES: Normal reaction of pupils, equal size. Conjunctiva pink, sclera white. NOSE: Clear with pink turbinates. THROAT: No erythema or exudates. NECK: No masses, no JVD, no thyroid enlargement, no adenopathy. CHEST: No chest wall deformity. Symmetrical expansion. LUNGS: Equal air entry with bilateral end expiratory wheeze, diminished breath sounds. CVS: Regular rate and rhythm, normal S1 and S2, no gallops, no murmurs, no rubs ABDOMEN: Soft, nontender. No hepatosplenomegaly, normal bowel sounds, no guarding or rigidity. EXTREMITIES: No clubbing, no edema, no cyanosis, 2+ pulses and upper and lower extremities. MUSCULOSKELETAL: Muscle strength and tone normal. SPINE: No scoliosis or deformity SKIN: No rashes on skin abrasions and lacerations all over the largest area of skin lacerations over the left anterior knee on the left. She does have some minimal amount of blood and some serosanguineous material over the area of laceration. CENTRAL NERVOUS SYSTEM: No focal deficits, tone is normal in all 4 extremities. Diffuse muscle weakness in all 4 extremities, examination is nonfocal. She is having some jerks highly doubt taking seizure activity. The patient is awake and alert and knee jerks are not automatic and there are rather random. PSYCHIATRIC: Anxious, unable to do a full psychiatric evaluation at this point in time - Labs CBC & Chem 7: 11/16/20 05:43 11/16/20 05:43 Labs: Abnormal Lab Results - Last 24 Hours (Table) 11/17/20 11/17/20 11/18/20 Range/Units 17:34 20:54 06:59 POC Glucose (mg/dL) 234 H 197 H 20 L (75-99) mg/dL 11/18/20 11/18/20 11/18/20 Range/Units 07:05 07:13 07:35 POC Glucose (mg/dL) 196 H 127 H 289 H (75-99) mg/dL 11/18/20 Range/Units 12:06 POC Glucose (mg/dL) 145 H (75-99) mg/dL Microbiology - Last 24 Hours (Table) 11/14/20 23:06 Blood Culture - Preliminary Blood No Growth after 72 hours 05/28/21 23:06 Blood Culture - Preliminary Blood No Growth after 72 hours Assessment and Plan Plan: Assessment: #1. Acute exacerbation of COPD, with suspected acute on top of chronic hypoxic and hypercapnic respiratory failure and the patient is currently on a BiPAP at a pressure of 10/5 cm of water. VBG from emergency was noted. The patient will need an ABG while on the BiPAP. She is much more awake and alert while being on the BiPAP for now. She is communicating. Her breathing is still labored and the patient is still short of breath. DO NOT INTUBATE CODE STATUS upon her wishes. Extremely debilitated due to her chronic lung disease. #2. The patient has advanced and end-stage COPD with chronic hypoxemic and h ypercapnic respiratory failure related to advanced COPD, stage IV, with baseline FEV1 of 28% of predicted, oxygen at 4 L of O2 by nasal cannula. #3. Chronic and ongoing nicotine dependence, currently down to 2 cigarettes a day #4. Hypertension #5. Osteoarthritis #6. Hypothyroidism #7. Anxiety #8. frequent falls #9. fracture in the left upper extremity wearing a cast #10. multiple areas of skin laceration largest in the left upper lower extremity #11. Episode of hypoglycemia on this morning, and patient's Levemir has been adjusted hypoglycemia protocol was followed and currently blood sugar is 146 Plan: Wean FiO2 to keep O2 sat saturation at or above 88% May use BiPAP as needed Continue same dose IV steroids Continue antibiotics Obtain procalcitonin and proBNP level Chest x-ray shows possibility of small pleural effusions and increased pulmonary vascular congestion, but proBNP came back unremarkable at 362 We'll continue to monitor patient's respiratory status, oxygenation, dyspnea Provide incentive spirometer Maintain aspiration precautions Close monitoring of blood sugars I performed a history & physical examination of the patient and discussed their management with my nurse practitioner, Galina Mar. I reviewed the nurse practitioner's note and agree with the documented findings and plan of care. Lung sounds are positive for diminished breath sounds throughout the lung bauman. The findings and the impression was discussed with the patient. I attest to the documentation by the nurse practitioner. Time with Patient: Less than 30
[2020-11-18 17:29] LABS: Glucose,Whole Blood 299 mg/dL (75-99)
--- NOTE | 2020-11-18 19:17 | PN ---
PROGRESS NOTE DATE OF SERVICE: 11/18/2020 This 75-year-old woman who was admitted with COPD acute exacerbation, acute hypoxic hypercarbic respiratory failure, is being closely monitored. Sensorium is slightly improved. No chest pain. No palpitations. No fever. PHYSICAL EXAMINATION: Alert and oriented x2. Pulse 80. Blood pressure 116/73, respiration 19, temperature 97.8, pulse ox 97% on 4 L. HEENT: Conjunctivae normal. NECK: No JVD. CARDIOVASCULAR: S1, S2 muffled. RESPIRATORY: Breath sounds diminished in the bases. A few scattered rhonchi. ABDOMEN: Soft. NERVOUS SYSTEM: No focal deficits. LABS: WBC 15.7, hemoglobin 10.4, sodium 135. ASSESSMENT: 1. Chronic obstructive pulmonary disease acute exacerbation with acute hypoxic respiratory failure. 2. Acute metabolic acidosis secondary to hypercarbia, status post BiPAP. 3. History of recent urinary tract infection. 4. Diabetes mellitus type 2 uncontrolled with severe hyperglycemia. 5. History of recent sepsis with multiple complex medical issues. 6. Hyponatremia. 7. Hypoalbuminemia with mild protein calorie malnutrition. 8. Increased WBC. 9. Anemia of chronic disease. 10.History of congestive heart failure. 11.History of chronic obstructive pulmonary disease, end stage. 12.Hypertension. 13.History of degenerative joint disease. 14.Chronic hypoxic respiratory failure on oxygen 2 L nasal cannula. 15.History of anxiety. 16.History of nicotine dependence. RECOMMENDATIONS: In this 75-year-old woman who presented with multiple complex medical issues, we will monitor the patient closely. Repeat labs. Continue with bronchodilators. Further recommendations to follow. MMODL / IJN: [id number] /
[2020-11-18] MEDS: SYMBICORT 160-4.5 MCG INHALER INHALATION SCH (20:14)
[2020-11-18 20:32] LABS: Glucose,Whole Blood 267 mg/dL (75-99)
[2020-11-19 02:27] LABS: Glucose,Whole Blood 252 mg/dL (75-99)
[2020-11-19] MEDS: LEVOTHYROXINE 75 MCG TAB PO SCH (05:36)
[2020-11-19 07:17] LABS: Glucose,Whole Blood 259 mg/dL (75-99)
[2020-11-19] MEDS: SYMBICORT 160-4.5 MCG INHALER INHALATION SCH ×2 (08:05→20:27)
[2020-11-19] MEDS: IPRATROPIUM-ALBUTEROL 3 ML NEB INHALATION SCH ×4 (08:05→20:27)
[2020-11-19] MEDS: predniSONE 20 MG TAB PO SCH (08:47)
[2020-11-19] MEDS: PANTOPRAZOLE 40 MG TABLET PO SCH (08:47)
[2020-11-19] MEDS: DOCUSATE 100 MG CAP PO SCH ×2 (08:47→20:52)
[2020-11-19] MEDS: LORATADINE 10 MG TAB PO SCH (08:48)
[2020-11-19] MEDS: NICOTINE 21MG/24HR PATCH TRANSDERM SCH (08:48)
[2020-11-19] MEDS: INSULIN ASPART (NovoLOG) 100 UNIT/ML VIAL SQ SCH ×4 (08:49→20:52)
[2020-11-19] MEDS: INSULIN DETEMIR (LEVEMIR) 100 UNIT/ML SYR SQ SCH (08:49)
[2020-11-19] MEDS: HEPARIN SODIUM,PORCINE/PF 5,000 UNIT/0.5 ML SYRINGE SQ SCH ×3 (08:49→23:44)
--- NOTE | 2020-11-19 12:42 | P.PN ---
Subjective Progress Note Date: 11/19/20 Principal diagnosis: Altered mental status, multifactorial This is a 75-year-old female patient with advanced COPD with chronic hypoxic and hypercapnic respiratory failure with his the hospitalist for an E. coli urinary tract infection. During the hospitalization, the patient had some altered mental status and some limited CO2 narcosis which ultimately recovered. The patient was transferred to [facility] and within a few hours she was transferred back altered mentation. This of the blood work showed some mild leukocytosis with a white cell count 19.6. Otherwise blood work was essentially negative. The patient was immediately placed on BiPAP at a pressure of 10/5 cm of water. She is BiPAP throughout the night and this morning she is back on 3 L of oxygen by nasal cannula. She is awake and I think in my opinion she is back to her baseline. Her COPD is quite advanced and she has chronic hypoxic and hypercapnic respiratory failure. A repeat blood gases will be done to reevaluate her acid base status. She was placed back on bronchodilators and steroids. Note that she was supposed also to complete a course of Levaquin regarding an E. coli UTI. She is awake. She is slow in answering questions. She is arousable. She does not have heard dentures and as such she is unable to eat regular food. She is sipping on water for now. No aspiration has been noted. 11/16/2020, the patient is awake but she doesn't communicate at all alive. She can acid simple questions if she is asked the same question repetitively. She is not showing any signs of respiratory distress. Blood gases from yesterday was noted. No significant respiratory acidosis. She is utilizing the BiPAP on and off during the day and continuously at nighttime at a pressure of 12/5 with an FiO2 of 30%. She is on bronchodilators and steroids pages also on Levaquin. She needs assistance with activities of daily today life even with feeding.The ABG showed a pH of 7.33 with a pCO2 of 61 and pO2 of 59. This is consistent with chronic hypercapnic respiratory failure. 11/17/2020, the patient is much more awake and alert and communicating. Less sleepy. She slept on the BiPAP overnight. She is currently on 3 L of oxygen by nasal cannula. No new complaints. Still on bronchodilators and steroids. Trying to feed herself and she is able to swallow. On 11/18/2020 patient seen in follow-up on medical surgical floor. She is awake, she is responding verbally, she is only oriented to self, she is unsure of the place and time. Appears to be in no acute respiratory distress, she is currently on 4 L of oxygen a pulse ox of 96%. Did not require BiPAP support last night, did require BiPAP support the night before. No rhonchi no wheezing on today's exam, last chest x-ray from 11/06/2020 showed blunting of the costophrenic angles, some pulmonary vascular congestion consistent with CHF with small pleural effusions. No fever or chills overnight. Patient did have a episode of hypoglycemia this morning, and her blood sugar was only 20 at around 06 59 this morning. This was treated per protocol, and currently her blood sugar is 145 before lunch. Her Levemir has been adjusted, she is currently getting 20 units daily at 7:00 in the morning. She is also on a sliding scale. She is on oral prednisone 20 mg daily, Levaquin 500 milligrams daily and Symbicort and DuoNeb breathing treatments. On 11/19/2020 patient seen in follow-up on medical surgical floor, she is awake and alert, oriented 2, she is sitting up in the recliner today, she is breathing comfortably, and stronger, and more awake and interactive on today's exam, she is on 4 L of oxygen the pulse ox of 98%, afebrile, hemodynamically she is stable. His had no episodes of hypoglycemia in the last 24 hours, she remains on breathing treatments, she remains on Levaquin 500 mg daily for recent history of urinary tract infection. She remains on small dose of prednisone 20 mg daily. She's had no acute events overnight, no worsening cough, no chest pain, no hemoptysis. Objective - Vital Signs Vital signs: Vital Signs Temp 98.5 F 11/19/20 05:00 Pulse 82 11/19/20 11:48 Resp 18 11/19/20 08:00 BP 149/61 11/19/20 05:00 Pulse Ox 98 11/19/20 05:00 Intake & Output 11/18/20 11/19/20 11/19/20 18:59 06:59 18:59 Intake Total 360 750 Balance 360 750 Intake: Oral 360 750 Other: Voiding Method Diaper Diaper Diaper # Voids 2 - Exam GENERAL EXAM: Alert, pleasant, 75-year-old female patient, extremely debilitated, Currently off BiPAP and a 4 L of supplemental oxygen. She is responsive. She is interactive. As mentioned earlier, she is a poor hygienic state. She has areas of skin laceration and abrasions related to a fall, and skin is less indurated over the left anterior knee area and the patient is wearing a cast on her left upper extremity related to a fall. She had a fracture that approximately a month ago. HEAD: Normocephalic/atraumatic. EYES: Normal reaction of pupils, equal size. Conjunctiva pink, sclera white. NOSE: Clear with pink turbinates. THROAT: No erythema or exudates. NECK: No masses, no JVD, no thyroid enlargement, no adenopathy. CHEST: No chest wall deformity. Symmetrical expansion. LUNGS: Equal air entry with bilateral end expiratory wheeze, diminished breath sounds. CVS: Regular rate and rhythm, normal S1 and S2, no gallops, no murmurs, no rubs ABDOMEN: Soft, nontender. No hepatosplenomegaly, normal bowel sounds, no guarding or rigidity. EXTREMITIES: No clubbing, no edema, no cyanosis, 2+ pulses and upper and lower extremities. MUSCULOSKELETAL: Muscle strength and tone normal. SPINE: No scoliosis or deformity SKIN: No rashes on skin abrasions and lacerations all over the largest area of skin lacerations over the left anterior knee on the left. She does have some minimal amount of blood and some serosanguineous material over the area of laceration. CENTRAL NERVOUS SYSTEM: No focal deficits, tone is normal in all 4 extremities. Diffuse muscle weakness in all 4 extremities, examination is nonfocal. She is having some jerks highly doubt taking seizure activity. The patient is awake and alert and knee jerks are not automatic and there are rather random. PSYCHIATRIC: Anxious, unable to do a full psychiatric evaluation at this point in time - Labs CBC & Chem 7: 11/16/20 05:43 11/16/20 05:43 Labs: Abnormal Lab Results - Last 24 Hours (Table) 11/18/20 11/18/20 11/18/20 Range/Units 15:38 17:27 20:31 POC Glucose (mg/dL) 299 H 267 H (75-99) mg/dL Procalcitonin 1.22 H (0.02-0.09) ng/mL 11/19/20 11/19/20 Range/Units 02:25 07:13 POC Glucose (mg/dL) 252 H 259 H (75-99) mg/dL Procalcitonin (0.02-0.09) ng/mL Microbiology - Last 24 Hours (Table) 11/14/20 23:06 Blood Culture - Preliminary Blood No Growth after 96 hours 11/14/20 23:06 Blood Culture - Preliminary Blood No Growth after 96 hours Assessment and Plan Plan: Assessment: #1. Acute exacerbation of COPD, with suspected acute on top of chronic hypoxic and hypercapnic respiratory failure and the patient is currently on a BiPAP at a pressure of 10/5 cm of water. VBG from emergency was noted. The patient will need an ABG while on the BiPAP. She is much more awake and alert while being on the BiPAP for now. She is communicating. Her breathing is still labored and the patient is still short of breath. DO NOT INTUBATE CODE STATUS upon her wishes. Extremely debilitated due to her chronic lung disease. #2. The patient has advanced and end-stage COPD with chronic hypoxemic and hypercapnic respiratory failure related to advanced COPD, stage IV, with baseline FEV1 of 28% of predicted, oxygen at 4 L of O2 by nasal cannula. #3. Chronic and ongoing nicotine dependence, currently down to 2 cigarettes a day #4. Hypertension #5. Osteoarthritis #6. Hypothyroidism #7. Anxiety #8. frequent falls #9. fracture in the left upper extremity wearing a cast #10. multiple areas of skin laceration largest in the left upper lower extremity #11. Episode of hypoglycemia on this morning, and patient's Levemir has been adjusted hypoglycemia protocol was followed and currently blood sugar is 146 Plan: No acute events overnight No recurrent episodes of hypoglycemia Vital signs are stable Wean FiO2 to keep O2 sat saturation at or above 88% May use BiPAP as needed Continue same dose IV steroids Continue antibiotics Pro-Calcitonin level is 1.22 suggesting presence of infection, and patient is covered with Levaquin No worsening dyspnea, no worsening hypoxia Clinically patient is improving Provide incentive spirometer Maintain aspiration precautions Close monitoring of blood sugars From pulmonary perspective patient could be considered for discharge back to [facility] today and she will need to complete a course of Levaquin, and prednisone taper for a few more days starting at 20 mg daily I performed a history & physical examination of the patient and discussed their management with my nurse practitioner, Galina Mar. I reviewed the nurse practitioner's note and agree with the documented findings and plan of care. Lung sounds are positive for diminished breath sounds throughout the lung bauman. The findings and the impression was discussed with the patient. I attest to the documentation by the nurse practitioner. Time with Patient: Less than 30
[2020-11-19 12:45] LABS: Glucose,Whole Blood 233 mg/dL (75-99)
[2020-11-19] MEDS: MULTIVITAMINS, THERA 1 EACH TAB PO SCH (13:33)
[2020-11-19] MEDS: FOLIC ACID 1 MG TAB PO SCH (13:33)
[2020-11-19] MEDS: THIAMINE 100 MG TAB PO SCH (13:33)
[2020-11-19] MEDS: LEVOFLOXACIN 500 MG TAB PO SCH (13:34)
--- NOTE | 2020-11-19 15:47 | PN ---
PROGRESS NOTE DATE OF SERVICE: 11/19/2020. This 75 -year-old woman was admitted with COPD acute exacerbation with acute hypoxic respiratory failure, is improving significantly. The sensorium has improved significantly. No chest pain. No palpitations. Multiple consultants following the patient closely. PHYSICAL EXAMINATION: Alert and oriented x2. Pulse 75, blood pressure 109/60, respirations 17, temperature 98.2, pulse ox 94% on 4 L. HEENT: Conjunctivae normal. NECK: No JVD. CARDIOVASCULAR: S1, S2 muffled. RESPIRATION: Breath sounds diminished in the bases. A few scattered rhonchi. ABDOMEN: Soft. Nontender. NERVOUS SYSTEM: No focal deficits. LAB STUDIES: WBC nd, hemoglobin 10.4. ASSESSMENT: 1. Chronic obstructive pulmonary disease acute exacerbation with acute hypoxic respiratory failure. 2. Acute metabolic acidosis secondary to hypercarbia, status post BiPAP. 3. History of recent urinary tract infection. 4. Diabetes type 2 uncontrolled with severe hyperglycemia. 5. History of recent sepsis with multiple complex medical issues. 6. Hyponatremia. 7. Hypoalbuminemia with mild protein calorie malnutrition. 8. Increased WBC. 9. Anemia of chronic disease. 10.History of congestive heart failure. 11.History of chronic obstructive pulmonary disease, end-stage. 12.Hypertension. 13.History of degenerative joint disease. 14.Chronic hypoxic respiratory failure on oxygen 2 L nasal cannula. 15.History of anxiety. 16.History of nicotine dependence. RECOMMENDATIONS AND DISCUSSION: Recommend to continue current medications, symptomatic treatment. Otherwise, I recommend continue the bronchodilators. Taper the steroids. Guarded prognosis because of multiple complex medical issues. Further recommendations to follow. MMODL / IJN: [id number] / MTDD
[2020-11-19 17:06] LABS: Glucose,Whole Blood 245 mg/dL (75-99)
[2020-11-19 20:49] LABS: Glucose,Whole Blood 256 mg/dL (75-99)
[2020-11-20] MEDS: LEVOTHYROXINE 75 MCG TAB PO SCH (04:53)
[2020-11-20 07:20] LABS: Glucose,Whole Blood 230 mg/dL (75-99)
[2020-11-20 08:33] LABS: African American GFR (CKD) 86 (>60 ml/min/1.73 sqM); Anion Gap -1 mmol/L; Blood Urea Nitrogen 37 mg/dL (7-17); Carbon Dioxide 35 mmol/L (22-30); Chloride 93 mmol/L (98-107); Glucose 185 mg/dL (74-99); Non-African American GFR(CKD) 75 (>60 ml/min/1.73 sqM); Sodium 127 mmol/L (137-145)
[2020-11-20] MEDS: IPRATROPIUM-ALBUTEROL 3 ML NEB INHALATION SCH ×2 (08:36→11:58)
[2020-11-20 08:37] LABS: Potassium 5.2 mmol/L (3.5-5.1)
[2020-11-20] MEDS: SYMBICORT 160-4.5 MCG INHALER INHALATION SCH (08:37)
[2020-11-20] MEDS: INSULIN DETEMIR (LEVEMIR) 100 UNIT/ML SYR SQ SCH (08:54)
[2020-11-20] MEDS: INSULIN ASPART (NovoLOG) 100 UNIT/ML VIAL SQ SCH ×2 (08:55→11:57)
[2020-11-20] MEDS: predniSONE 20 MG TAB PO SCH (08:56)
[2020-11-20] MEDS: ASPIRIN 325 MG TAB PO SCH (08:56)
[2020-11-20] MEDS: LORATADINE 10 MG TAB PO SCH (08:56)
[2020-11-20] MEDS: PANTOPRAZOLE 40 MG TABLET PO SCH (08:56)
[2020-11-20] MEDS: DOCUSATE 100 MG CAP PO SCH (08:56)
[2020-11-20] MEDS: NICOTINE 21MG/24HR PATCH TRANSDERM SCH ×2 (08:56→09:06)
[2020-11-20] MEDS: HEPARIN SODIUM,PORCINE/PF 5,000 UNIT/0.5 ML SYRINGE SQ SCH (08:56)
--- NOTE | 2020-11-20 11:02 | P.DS ---
Providers Date of admission: 11/15/20 15:49 Attending physician: Noel Roldan MD Consults: 11/15/20 01:52 Consult Physician Routine Consulting Provider: Chris Sears Consult Reason/Comments: COPD exacerbation. Do you want consulting provider notified?: Yes Primary care physician: Chris Sears Hospital Course: Final diagnosis COPD acute exacerbation with acute hypoxic respiratory failure Acute metabolic encephalopathy secondary to hypercarbia status post BiPAP History of recent UTI Diabetes was type II uncontrolled with the severe hyperglycemia History of recent sepsis with the multiple [facility] medical issues. Hyponatremia Hypoalbuminemia with a mild protein calorie malnutrition Increased obesity Anemia of chronic disease History of CHF History of COPD and saline disease Hypertension DJD Chronic hypoxic respiratory failure no oxygen 2 L as he Helga History of anxiety History and nicotine dependence Discharge disposition This patient is being discharged in a stable pressure the guarded guarded prognosis to [facility]. Total time taken 35 minutes. History of present illness This 75-year-old woman with a past medical history multiple medical problems was admitted with COPD and change in mental status. This patient was recently to [facility] with a COPD and UTI. Patient was sent to rehab at this time. In the rehab patient was found to be having some change in mental status. Hypercarbia was suspected. Sedatives is to be avoided. Patient was treated with BiPAP and bronchodilators and tapering doses steroids. Patient improved significantly. On exam vitals are stable. Cardio S1 and S2 normal. Respiratory a few scattered rhonchi nervous system mild diffuse weakness. Please refer to the medication reconciliation sheet for list of medications Plan - Discharge Summary New Discharge Prescriptions: New predniSONE [Deltasone] 20 mg PO DAILY tab Folic Acid 1 mg PO DAILY@1200 tab Multivitamins, Thera [Multivitamin (formulary)] 1 each PO DAILY@1200 tab Pantoprazole [Protonix] 40 mg PO AC-BRKFST tablet. Thiamine [Vitamin B-1] 100 mg PO DAILY@1200 tab Continue Budesonide-Formot 160-4.5 Mcg [Symbicort 160-4.5 Mcg Inhaler] 2 puff INHALATION RT-BID #1 vial Levothyroxine Sodium [Synthroid] 150 mcg PO DAILY #30 tablet Loratadine [Claritin] 10 mg PO DAILY Docusate [Colace] 100 mg PO BID 30 Days #60 cap Nicotine 21Mg/24Hr Patch [Habitrol] 1 patch TRANSDERM DAILY #20 patch Insulin Detemir (Levemir) [Levemir] 15 unit SQ HS 30 Days #4 syr Albuterol Sulfate [Proair Hfa] 2 puff INHALATION RT-QID PRN PRN Reason: Shortness Of Breath Aspirin 325 mg PO Q48H Fluticasone/Salmeterol [Advair 250-50 Diskus] 1 puff INHALATION RT-BID Ketorolac 0.5% Ophth Soln [Acular 0.5%] 1 drop BOTH EYES QID PRN PRN Reason: Itching Ipratropium-Albuterol Nebulize [Duoneb 0.5 mg-3 mg/3 ml Soln] 3 ml INHALATION RT-QID 30 Days #120 ml Ipratropium-Albuterol Nebulize [Duoneb 0.5 mg-3 mg/3 ml Soln] 3 ml INHALATION RT-Q4H PRN ml PRN Reason: Shortness Of Breath Or Wheezing INSULIN ASPART (NovoLOG) [NovoLOG (formulary)] See Protocol SQ ACHS Levofloxacin [Levaquin] 500 mg PO DAILY 5 Days #1 tab Acetaminophen Tab [Tylenol] 650 mg PO Q6HR PRN tab PRN Reason: Fever And/ Or Pain Discontinued Famotidine [Pepcid] 20 mg PO DAILY tab ALPRAZolam [Xanax] 0.25 mg PO TID PRN #6 tab PRN Reason: Anxiety Discharge Medication List Budesonide-Formot 160-4.5 Mcg [Symbicort 160-4.5 Mcg Inhaler] 2 puff INHALATION RT-BID #1 vial 12/05/18 [Rx] Levothyroxine Sodium [Synthroid] 150 mcg PO DAILY #30 tablet 12/05/18 [Rx] Albuterol Sulfate [Proair Hfa] 2 puff INHALATION RT-QID PRN 09/25/20 [History] Aspirin 325 mg PO Q48H 09/25/20 [History] Fluticasone/Salmeterol [Advair 250-50 Diskus] 1 puff INHALATION RT-BID 10/23/20 [History] Ketorolac 0.5% Ophth Soln [Acular 0.5%] 1 drop BOTH EYES QID PRN 10/23/20 [History] Loratadine [Claritin] 10 mg PO DAILY 10/23/20 [History] Docusate [Colace] 100 mg PO BID 30 Days #60 cap 10/29/20 [Rx] Insulin Detemir (Levemir) [Levemir] 15 unit SQ HS 30 Days #4 syr 10/29/20 [Rx] Ipratropium-Albuterol Nebulize [Duoneb 0.5 mg-3 mg/3 ml Soln] 3 ml INHALATION RT-Q4H PRN ml 10/29/20 [Rx] Ipratropium-Albuterol Nebulize [Duoneb 0.5 mg-3 mg/3 ml Soln] 3 ml INHALATION RT-QID 30 Days #120 ml 10/29/20 [Rx] Nicotine 21Mg/24Hr Patch [Habitrol] 1 patch TRANSDERM DAILY #20 patch 10/29/20 [Rx] INSULIN ASPART (NovoLOG) [NovoLOG (formulary)] See Protocol SQ ACHS 11/10/20 [History] Acetaminophen Tab [Tylenol] 650 mg PO Q6HR PRN tab 11/14/20 [Rx] Levofloxacin [Levaquin] 500 mg PO DAILY 5 Days #1 tab 11/14/20 [Rx] Folic Acid 1 mg PO DAILY@1200 tab 11/20/20 [Rx] Multivitamins, Thera [Multivitamin (formulary)] 1 each PO DAILY@1200 tab 11/20/20 [Rx] Pantoprazole [Protonix] 40 mg PO AC-BRKFST tablet. 11/20/20 [Rx] Thiamine [Vitamin B-1] 100 mg PO DAILY@1200 tab 11/20/20 [Rx] predniSONE [Deltasone] 20 mg PO DAILY tab 11/20/20 [Rx] Follow up Appointment(s)/Referral(s): Chris Sears MD [Primary Care Provider] - 1-2 days Narinder Griffiths MD [STAFF PHYSICIAN] - 3 Days Activity/Diet/Wound Care/Special Instructions: Diet is cardiac activity limited follow-up avoid sedatives
--- NOTE | 2020-11-20 11:25 | XR ---
EXAMINATION TYPE: XR chest 1V portable DATE OF EXAM: 11/20/2020 COMPARISON: 11/14/2020 HISTORY: CHF TECHNIQUE: Single frontal view of the chest is obtained. FINDINGS: Heart size mildly enlarged. Athetotic aorta. There are [id number] bilateral pleural effusions, right greater than left. Patchy bibasilar airspace opacities suggestive of atelectasis or developing pneumonia. No pneumothorax. IMPRESSION: 1. Cardiomegaly and small to moderate bilateral pleural effusions. Consider congestive heart failure. Bibasilar airspace opacities may represent atelectasis or developing pneumonia. Findings are relativ sandy stable since prior exam 11/14/2020.
[2020-11-20 11:45] LABS: Glucose,Whole Blood 190 mg/dL (75-99)
[2020-11-20] MEDS: MULTIVITAMINS, THERA 1 EACH TAB PO SCH (11:48)
[2020-11-20] MEDS: THIAMINE 100 MG TAB PO SCH (11:48)
[2020-11-20] MEDS: FOLIC ACID 1 MG TAB PO SCH (11:48)
[2020-11-20 12:00] VITALS: BP 104/60; RESP 17; TEMP 98.2
[2020-11-20 12:10] VITALS: PULSE 82
[2020-11-20] MEDS ORDERED: LEVOFLOXACIN 250 MG TAB PO SCH (13:00)
[2020-11-20 14:41] VITALS: BMI 25.7
== END 2020-11-20 15:00 | DRG 190 ==
LOC: EC 22:24 → 5NMEDONC 11-15 01:52 → OBSVTOIN 11-15 15:49
PROVIDERS: ADMIT Internal Medicine; ATTEND Internal Medicine
PROC: 5A09357 Assistance with Respiratory Ventilation, Less than 24 Consecutive Hours, Continuous Positive Airway Pressure (ICD-10-PCS; principal; 2020-11-15)
DX: J44.1 Chronic obstructive pulmonary disease with (acute) exacerbation (principal); J96.21 Acute and chronic respiratory failure with hypoxia; J96.22 Acute and chronic respiratory failure with hypercapnia; G93.41 Metabolic encephalopathy; E44.1 Mild protein-calorie malnutrition; E87.1 Hypo-osmolality and hyponatremia; E87.2 Acidosis; N39.0 Urinary tract infection, site not specified; M19.90 Unspecified osteoarthritis, unspecified site; R29.6 Repeated falls; I50.9 Heart failure, unspecified; I11.0 Hypertensive heart disease with heart failure; B96.20 Unspecified Escherichia coli [E. coli] as the cause of diseases classified elsewhere; D63.8 Anemia in other chronic diseases classified elsewhere; E03.9 Hypothyroidism, unspecified; E11.51 Type 2 diabetes mellitus with diabetic peripheral angiopathy without gangrene; E11.65 Type 2 diabetes mellitus with hyperglycemia; Z68.25 Body mass index [BMI] 25.0-25.9, adult; E86.0 Dehydration; F17.210 Nicotine dependence, cigarettes, uncomplicated; F41.9 Anxiety disorder, unspecified; Z79.4 Long term (current) use of insulin; Z20.822 Contact with and (suspected) exposure to COVID-19; Z79.51 Long term (current) use of inhaled steroids; Z79.890 Hormone replacement therapy; Z80.0 Family history of malignant neoplasm of digestive organs; Z90.710 Acquired absence of both cervix and uterus; Z86.010 Personal history of colon polyps; Z98.42 Cataract extraction status, left eye; Z98.41 Cataract extraction status, right eye; Z96.1 Presence of intraocular lens; Z88.1 Allergy status to other antibiotic agents; Z88.0 Allergy status to penicillin; Z88.8 Allergy status to other drugs, medicaments and biological substances; Z74.01 Bed confinement status
CPT/HCPCS: 36415; 36600; 70450; 71045; 80048; 80053; 82150; 82803; 82805; 83880; 84145; 84484; 85025; 85610; 85730; 87040; 87635; 93005; 94640; 94660; 94760; 99285

== ENCOUNTER 2020-12-12 17:19 | Emergency (ER) | payer MEDICARE, BC ==
[2020-12-12 17:27] VITALS: TEMP 98
--- NOTE | 2020-12-12 18:12 | ED ---
Lower Extremity Injury HPI - General Chief Complaint: Extremity Injury, Lower Stated Complaint: Possible R Knee infection Source: patient, EMS, RN notes reviewed, old records reviewed Mode of arrival: EMS Limitations: no limitations - History of Present Illness Initial Comments: 75-year-old female, alert and oriented to the emergency room with complaints of right calf pain from [facility]. Patient has had multiple falls and is in the nursing facility for toxic encephalopathy with anemia heart failure chronic obstructive pulmonary disease, also weakness, difficulty walking, peripheral vascular disease and unspecified osteoarthritis. She states that she has not had a recent fall and that her knee has been bothering her they did an x-ray of the facility and it was aggravated lab works in with a unremarkable. She was sent for evaluation for DVT. Patient does have 1+ pedal edema to the right foot and calf tenderness. MD Complaint: other (Right calf pain) -: days(s) (1) Injury: Knee: Right Type of Injury: other (History of falls from [facility] patient denies recent bone) Place: [facility] Severity scale (1-10): 8 Improves With: immobilization Worsens With: palpation (Squeezing calf) Treatments Prior to Arrival: other (xr and blood work) - Related Data Home Medications Medication Instructions Recorded Confirmed Albuterol Sulfate [Proair Hfa] 2 puff INHALATION RT-QID PRN 09/25/20 11/14/20 Aspirin 325 mg PO Q48H 09/25/20 11/14/20 Fluticasone/Salmeterol [Advair 1 puff INHALATION RT-BID 10/23/20 11/14/20 250-50 Diskus] Ketorolac 0.5% Ophth Soln [Acular 1 drop BOTH EYES QID PRN 10/23/20 11/14/20 0.5%] Loratadine [Claritin] 10 mg PO DAILY 10/23/20 11/14/20 INSULIN ASPART (NovoLOG) [NovoLOG See Protocol SQ ACHS 11/10/20 11/14/20 (formulary)] Previous Rx's Medication Instructions Recorded Budesonide-Formot 160-4.5 Mcg 2 puff INHALATION RT-BID #1 vial 12/05/18 [Symbicort 160-4.5 Mcg Inhaler] Levothyroxine Sodium [Synthroid] 150 mcg PO DAILY #30 tablet 12/05/18 Docusate [Colace] 100 mg PO BID 30 Days #60 cap 10/29/20 Insulin Detemir (Levemir) [Levemir] 15 unit SQ HS 30 Days #4 syr 10/29/20 Ipratropium-Albuterol Nebulize 3 ml INHALATION RT-Q4H PRN ml 10/29/20 [Duoneb 0.5 mg-3 mg/3 ml Soln] Ipratropium-Albuterol Nebulize 3 ml INHALATION RT-QID 30 Days 10/29/20 [Duoneb 0.5 mg-3 mg/3 ml Soln] #120 ml Nicotine 21Mg/24Hr Patch [Habitrol] 1 patch TRANSDERM DAILY #20 patch 10/29/20 Acetaminophen Tab [Tylenol] 650 mg PO Q6HR PRN tab 11/14/20 Levofloxacin [Levaquin] 500 mg PO DAILY 5 Days #1 tab 11/14/20 Folic Acid 1 mg PO DAILY@1200 tab 11/20/20 Multivitamins, Thera [Multivitamin 1 each PO DAILY@1200 tab 11/20/20 (formulary)] Pantoprazole [Protonix] 40 mg PO AC-[id number] tablet. 11/20/20 Thiamine [Vitamin B-1] 100 mg PO DAILY@1200 tab 11/20/20 predniSONE [Deltasone] 20 mg PO DAILY tab 11/20/20 Allergies Allergy/AdvReac Type Severity Reaction Status Date / Time bacitracin Allergy Rash/Hives Verified 12/12/20 18:19 [From Neosporin ([id number])] neomycin Allergy Rash/Hives Verified 12/12/20 18:19 [From Neosporin ([id number])] Penicillins Allergy Rash/Hives Verified 12/12/20 18:19 polymyxin B Allergy Rash/Hives Verified 12/12/20 18:19 [From Neosporin ([id number])] trimethoprim [From Polytrim] Allergy Rash/Hives Verified 12/12/20 18:19 levofloxacin [From Levaquin] AdvReac WEAKNESS Verified 12/12/20 18:19 ELDA/POLY/DEX Allergy Rash/Hives Uncoded 11/10/20 07:03 Review of Systems ROS Statement: Those systems with pertinent positive or pertinent negative responses have been documented in the HPI. ROS Other: All systems not noted in ROS Statement are negative. Past Medical History Past Medical History: Heart Failure, COPD, Diabetes Mellitus, Hypertension, Osteoarthritis (OA), Respiratory Disorder, Thyroid Disorder, Vascular Disorder Additional Past Medical History / Comment(s): Pt recently admitted to [facility] on 10/23/20 with acute exacerbation chronic COPD, acute on chronic hypoxic hypercarbic respiratory failure, acute purulent tracheobronchitis, possible new onset diabetes, hyponatremia/hypovolemic, hyperkalemia, severe constipation/obstipation. Other hx: Advanced COPD, chronic hypoxic respiratory failure, home oxygen, 2010 pericarditis, former smoker, hypothyroidism, skeletal chest wall pain, chronic anxiety, anemia, PVD, past leg and foot wounds, recent L distal radius fracture/L knee wound sutures since removed, gout, confused at times per spouse and recently has been bedbound. History of Any Multi-Drug Resistant Organisms: None Reported Past Surgical History: Heart Catheterization, Hysterectomy, Tubal Ligation Additional Past Surgical History / Comment(s): 2011 cardiac cath, 2013 cardiac angiogram, colonoscopy/benign polypectomy, anal fistula repair, bilateral cataract removals/lens implants. Past Anesthesia/Blood Transfusion Reactions: Previous Problems w/ Anesthesia, Postoperative Nausea & Vomiting (PONV) Additional Past Anesthesia/Blood Transfusion Reaction / Comment(s): oxygen was "low" post op, nausea one time Past Psychological History: Anxiety Smoking Status: Former smoker Past Alcohol Use History: None Reported Past Drug Use History: None Reported - Past Family History Mother History Unknown: Yes Family Medical History: Cancer, Thyroid Disorder Additional Family Medical History / Comment(s): Liver Cancer Father History Unknown: Yes Family Medical History: Cancer General Exam Limitations: no limitations General appearance: alert, in no apparent distress Head exam: Present: atraumatic, normocephalic, normal inspection Eye exam: Present: normal appearance, PERRL, EOMI. Absent: scleral icterus, conjunctival injection, periorbital swelling Pupils: Present: normal accommodation ENT exam: Present: normal exam, normal oropharynx, mucous membranes moist Neck exam: Present: normal inspection. Absent: tenderness, meningismus, lymphadenopathy Respiratory exam: Present: normal lung sounds bilaterally. Absent: respiratory distress, wheezes, rales, rhonchi, stridor, chest wall tenderness, accessory muscle use, decreased breath sounds Cardiovascular Exam: Present: regular rate, normal rhythm, normal heart sounds. Absent: systolic murmur, diastolic murmur, rubs, gallop, clicks GI/Abdominal exam: Present: soft, normal bowel sounds. Absent: distended, tenderness, guarding, rebound, rigid, mass Extremities exam: Present: normal inspection, full ROM, normal capillary refill. Absent: tenderness, pedal edema, joint swelling, calf tenderness Back exam: Present: normal inspection, full ROM. Absent: tenderness, CVA tenderness (R), CVA tenderness (L), muscle spasm, paraspinal tenderness, vertebral tenderness Neurological exam: Present: alert, oriented X3, CN II-XII intact Psychiatric exam: Present: normal affect Skin exam: Present: warm, dry, normal color, other (Skin tear healing to left knee, Steri-Strips to skin tear to left upper arm, erythema to right anterior knee). Absent: rash, cyanosis, diaphoretic, petechiae, pallor, mottled Course Vital Signs 12/12/20 12/12/20 17:24 18:40 Temperature 98 F Pulse Rate 89 86 Respiratory 18 16 Rate Blood Pressure 167/76 167/79 O2 Sat by Pulse 100 100 Oximetry Medical Decision Making - Medical Decision Making Ultrasound negative for DVT, patient was sent with x-ray results that were done today and negative for fracture. Patient was also sent with blood work done today. and has normal WBC count, no evidence of infection. Patient has good range of motion with the knee, ankle and hip. Bruising noted to the anterior knee there is no swelling behind the knee, no effusion. Patient has good range of motion with flexion and extension. She has good internal and external rotation of the ankle.. Patient sensation is intact. Patient will be discharged home with bruising to the right knee. Case discussed with . Disposition Clinical Impression: Knee pain, Contusion of lower leg Disposition: HOME SELF-CARE Condition: Fair Instructions (If sedation given, give patient instructions): Knee Pain (ED) Additional Instructions: Rest, ice, and elevate right knee.. Tylenol for pain as needed. Is patient prescribed a controlled substance at d/c from ED?: No Referrals: Chris Sears MD [Primary Care Provider] - 1-2 days Time of Disposition: 19:11
--- NOTE | 2020-12-12 18:44 | US ---
EXAMINATION TYPE: US venous doppler duplex LE RT DATE OF EXAM: 12/12/2020 6:37 PM COMPARISON: NONE CLINICAL HISTORY: pain. Pt having right knee pain and redness, no known prior DVT SIDE PERFORMED: Right TECHNIQUE: The lower extremity deep venous system is examined utilizing real time linear array sonog andie with graded compression, doppler sonography and color-flow sonography. VESSELS IMAGED: Common Femoral Vein Deep Femoral Vein Greater Saphenous Vein * Femoral Vein Popliteal Vein Small Saphenous Vein * Proximal Calf Veins (* superficial vessels) Right Leg: Negative for DVT No evidence of deep vein thrombosis in the right leg. IMPRESSION: Grayscale, color doppler, spectral doppler imaging performed of the deep veins of the lo wer extremities. There is normal flow, compressibility, vascular waveforms.
[2020-12-12 18:54] VITALS: BP 167/79; PULSE 86; RESP 16
== END 2020-12-12 20:00 | disposition home or self-care (01) ==
LOC: EC 17:19
DX: S80.01XA Contusion of right knee, initial encounter (principal); M79.661 Pain in right lower leg; E11.36 Type 2 diabetes mellitus with diabetic cataract; E11.51 Type 2 diabetes mellitus with diabetic peripheral angiopathy without gangrene; I11.0 Hypertensive heart disease with heart failure; I50.9 Heart failure, unspecified; J44.9 Chronic obstructive pulmonary disease, unspecified; M19.90 Unspecified osteoarthritis, unspecified site; Z79.4 Long term (current) use of insulin; Z79.51 Long term (current) use of inhaled steroids; Z79.82 Long term (current) use of aspirin; Z88.0 Allergy status to penicillin; Z88.1 Allergy status to other antibiotic agents; Z87.891 Personal history of nicotine dependence; Z99.81 Dependence on supplemental oxygen; Z88.8 Allergy status to other drugs, medicaments and biological substances; W19.XXXA Unspecified fall, initial encounter; Y92.129 Unspecified place in nursing home as the place of occurrence of the external cause
CPT/HCPCS: 99284

== ENCOUNTER → 2021-01-05 | Outpatient (CLI) | payer MEDICARE, BC ==
[2021-01-05 19:01] LABS: Basophils # (A) 0.08 X 10*3/uL (0.00-0.10); Basophils % (A) 0.7 %; Eosinophils # (A) 0.16 X 10*3/uL (0.04-0.35); Eosinophils % (A) 1.4 %; HCT 30.2 % (37.2-46.3); Lymphocytes # (A) 1.94 X 10*3/uL (0.90-5.00); Lymphocytes % (A) 16.8 %; MCH 27.4 pg (27.0-32.0); MCHC 29.8 g/dL (32.0-37.0); MCV 92.1 fL (80.0-97.0); Mean Platelet Volume 10.1 fL (9.5-12.2); Monocytes # (A) 0.74 X 10*3/uL (0.20-1.00); Monocytes % (A) 6.4 %; Neutrophils # (A) 8.54 X 10*3/uL (1.80-7.70); Neutrophils % (A) 74.1 %; Platelet Count 326 X 10*3/uL (140-440); RBC 3.28 X 10*6/uL (4.10-5.20); RDW 14.6 % (11.5-14.5); WBC 11.53 X 10*3/uL (4.50-10.00)
[2021-01-05 19:35] LABS: African American GFR (CKD) 96.9 (60.0-200.0); Albumin 3.9 g/dL (3.80-4.90); Albumin/Globulin Ratio 1.56 (1.60-3.17); Anion Gap 7.7 mmol/L (4.00-12.00); BUN/Creat Ratio 31.43 Ratio (12.00-20.00); Calcium 9.3 mg/dL (8.7-10.3); Carbon Dioxide 29.3 mmol/L (21.6-31.8); Globulin 2.5 g/dL (1.6-3.3); Non-African American GFR(CKD) 83.6 (60.0-200.0); Potassium 4.6 mmol/L (3.5-5.5); Total Bilirubin 0.3 mg/dL (0.3-1.2); Total Protein 6.4 g/dL (6.2-8.2)
[2021-01-05 19:42] LABS: T4, Free (Free Thyroxine) 1.6 ng/dL (0.80-1.80)
[2021-01-05 21:54] LABS: Hemoglobin A1C 6.7 % (4.0-6.0)
== END | disposition home or self-care (01) ==
LOC: LABWHC1 11:58
PROVIDERS: ATTEND Internal Medicine
DX: E11.9 Type 2 diabetes mellitus without complications (principal); E03.9 Hypothyroidism, unspecified; E78.5 Hyperlipidemia, unspecified; I10 Essential (primary) hypertension
CPT/HCPCS: 36415; 80053; 82533; 83036; 84439; 84443; 85025

== ENCOUNTER 2021-03-29 16:17 | Inpatient (IN) | payer MEDICARE, BC ==
[2021-03-29] MEDS ORDERED: methylPREDNISolone SOD SUCCI 125 MG/2 ML VIAL IV STA (16:39)
[2021-03-29] MEDS ORDERED: IPRATROPIUM-ALBUTEROL 3 ML NEB INHALATION STA (16:39)
--- NOTE | 2021-03-29 16:45 | ED ---
General Adult HPI - General Chief complaint: Shortness of Breath Stated complaint: sob Time Seen by Provider: 03/29/21 16:21 Source: patient, EMS Mode of arrival: EMS Limitations: no limitations - History of Present Illness Initial comments: Patient presents to the ED by ambulance for evaluation. Patient states that she has COPD, and she has had increasing dyspnea for the past 2 weeks or so. Patient states that she has been using her home nebulizer machine with minimal relief. Patient states that she has also been taking left over prednisone that she has at home for the past 5 days or so. Patient admits to having a mild cough as well. Patient also states that she has had polyuria for the past couple of weeks. Patient denies having any pain, fever or chills, headache, focal numbness/weakness/neuro deficit, chest pain, hemoptysis, palpitations, dizziness, nausea/vomiting/diarrhea, abdominal pain, dysuria/hematuria, leg or calf swelling or pain, or any other symptoms or complaints. Patient states that she is normally on 2 L of home O2. Patient states that she is fully vaccinated for Covid. - Related Data Home Medications Medication Instructions Recorded Confirmed Albuterol Sulfate [Proair Hfa] 2 puff INHALATION RT-QID PRN 09/25/20 03/29/21 Loratadine [Claritin] 10 mg PO DAILY 10/23/20 03/29/21 Nystatin 100,000 Unit/ml Susp 5 ml PO QID 03/29/21 03/29/21 [Mycostatin Oral Susp] lisinopriL [Zestril] 20 mg PO BID 03/29/21 03/29/21 predniSONE 10 mg PO DAILY 03/29/21 03/29/21 Previous Rx's Medication Instructions Recorded Budesonide-Formot 160-4.5 Mcg 2 puff INHALATION RT-BID #1 vial 12/05/18 [Symbicort 160-4.5 Mcg Inhaler] Levothyroxine Sodium [Synthroid] 150 mcg PO DAILY #30 tablet 12/05/18 Acetaminophen Tab [Tylenol] 650 mg PO Q6HR PRN tab 11/14/20 Allergies Allergy/AdvReac Type Severity Reaction Status Date / Time bacitracin Allergy Rash/Hives Verified 03/29/21 17:24 [From Neosporin ([id number])] neomycin Allergy Rash/Hives Verified 03/29/21 17:24 [From Neosporin ([id number])] Penicillins Allergy Rash/Hives Verified 03/29/21 17:24 polymyxin B Allergy Rash/Hives Verified 03/29/21 17:24 [From Neosporin ([id number])] trimethoprim [From Polytrim] Allergy Rash/Hives Verified 03/29/21 17:24 levofloxacin [From Levaquin] AdvReac WEAKNESS Verified 03/29/21 17:24 ELDA/POLY/DEX Allergy Rash/Hives Uncoded 11/10/20 07:03 Review of Systems ROS Statement: Those systems with pertinent positive or pertinent negative responses have been documented in the HPI. ROS Other: All systems not noted in ROS Statement are negative. Past Medical History Past Medical History: Heart Failure, COPD, Diabetes Mellitus, Hypertension, Osteoarthritis (OA), Respiratory Disorder, Thyroid Disorder, Vascular Disorder Additional Past Medical History / Comment(s): Pt recently admitted to [facility] on 10/23/20 with acute exacerbation chronic COPD, acute on chronic hypoxic hypercarbic respiratory failure, acute purulent tracheobronchitis, possible new onset diabetes, hyponatremia/hypovolemic, hyperkalemia, severe constipatio n/obstipation. Other hx: Advanced COPD, chronic hypoxic respiratory failure, home oxygen, 2010 pericarditis, former smoker, hypothyroidism, skeletal chest wall pain, chronic anxiety, anemia, PVD, past leg and foot wounds, recent L distal radius fracture/L knee wound sutures since removed, gout, confused at times per spouse and recently has been bedbound. History of Any Multi-Drug Resistant Organisms: None Reported Past Surgical History: Heart Catheterization, Hysterectomy, Tubal Ligation Additional Past Surgical History / Comment(s): 2011 cardiac cath, 2013 cardiac angiogram, colonoscopy/benign polypectomy, anal fistula repair, bilateral cataract removals/lens implants. Past Anesthesia/Blood Transfusion Reactions: Previous Problems w/ Anesthesia, Postoperative Nausea & Vomiting (PONV) Additional Past Anesthesia/Blood Transfusion Reaction / Comment(s): oxygen was "low" post op, nausea one time Past Psychological History: Anxiety Smoking Status: Former smoker Past Alcohol Use History: None Reported Past Drug Use History: None Reported - Past Family History Mother History Unknown: Yes Family Medical History: Cancer, Thyroid Disorder Additional Family Medical History / Comment(s): Liver Cancer Father History Unknown: Yes Family Medical History: Cancer General Exam Limitations: no limitations General appearance: alert Head exam: Present: atraumatic, normocephalic Eye exam: Present: normal appearance, EOMI ENT exam: Present: normal oropharynx, mucous membranes moist Neck exam: Present: other (Trachea is in midline) Respiratory exam: Present: wheezes, decreased breath sounds, other (Equal breath sounds bilaterally; mild respiratory distress). Absent: rales, rhonchi, stridor Cardiovascular Exam: Present: normal rhythm, tachycardia, normal heart sounds, other (Normal radial pulses bilaterally) GI/Abdominal exam: Present: soft. Absent: distended, tenderness, guarding Extremities exam: Present: other (Negative Homans sign bilaterally). Absent: tenderness, pedal edema, calf tenderness Neurological exam: Present: alert, oriented X3. Absent: motor sensory deficit Psychiatric exam: Present: normal affect, normal mood Skin exam: Present: warm, dry, intact, normal color Course Vital Signs 03/29/21 03/29/21 03/29/21 16:31 17:52 18:34 Temperature 98.4 F Pulse Rate 112 H 101 H 104 H Respiratory 24 20 Rate Blood Pressure 182/80 145/79 O2 Sat by Pulse 84 L 96 Oximetry 03/29/21 03/29/21 18:41 18:49 Temperature Pulse Rate 110 H 110 H Respiratory 18 Rate Blood Pressure 131/85 O2 Sat by Pulse 98 Oximetry - Reevaluation(s) Reevaluation #1: 03/29/21 18:54 Case, H&P, test results and ED/home management were discussed with Dr. Welch. He accepts hospital admission. He recommends pulmonology consultation. He has no further recommendations at this time. 03/29/21 19:04 Patient states that her dyspnea has currently improved. Patient denies development of any new symptoms while in the ED. Patient is currently alert and breathing comfortably. Patient is aware of her test results, and she agrees with hospital admission at this time. EKG Findings - EKG Comments: EKG Findings:: Sinus tachycardia, ventricular rate of 119 bpm, no ectopy, normal [place] and QRS intervals, normal QT interval, rightward axis, no ST or T-wave abnormality Medical Decision Making - Medical Decision Making Patient's chest x-ray is fairly unremarkable. Patient's Covid study is negative. Patient is afebrile and without leukocytosis. Patient is hyperglycemic, but not acidotic. Patient's serum acetone level is negative. Patient was treated with DuoNeb treatment, IV Solu-Medrol, subcutaneous regular insulin, IV fluids and oral doxycycline in the ED. Will admit the patient to the hospital for further evaluation and management. Dr. Welch has accepted hospital admission. - Lab Data Result diagrams: 03/29/21 17:29 03/29/21 17:29 Lab Results 03/29/21 03/29/21 03/29/21 Range/Units 17:25 17:29 17:29 WBC 9.6 (3.8-10.6) k/uL RBC 4.64 (3.80-5.40) m/uL Hgb 12.7 (11.4-16.0) gm/dL Hct 41.5 (34.0-46.0) % MCV 89.4 (80.0-100.0) fL MCH 27.4 (25.0-35.0) pg MCHC 30.7 L (31.0-37.0) g/dL RDW 13.9 (11.5-15.5) % Plt Count 294 (150-450) k/uL MPV 7.5 Neutrophils % 94 % Lymphocytes % 3 % Monocytes % 3 % Eosinophils % 0 % Basophils % 0 % Neutrophils # 9.0 H (1.3-7.7) k/uL Lymphocytes # 0.3 L (1.0-4.8) k/uL Monocytes # 0.2 (0-1.0) k/uL Eosinophils # 0.0 (0-0.7) k/uL Basophils # 0.0 (0-0.2) k/uL Hypochromasia Slight PT 9.3 (9.0-12.0) sec INR 0.8 (<1.2) APTT 20.2 L (22.0-30.0) sec Sodium (137-145) mmol/L Potassium (3.5-5.1) mmol/L Chloride (98-107) mmol/L Carbon Dioxide (22-30) mmol/L Anion Gap mmol/L BUN (7-17) mg/dL Creatinine (0.52-1.04) mg/dL Est GFR (CKD-EPI)AfAm (>60 ml/min/1.73 sqM) Est GFR (CKD-EPI)NonAf (>60 ml/min/1.73 sqM) Glucose (74-99) mg/dL Plasma Lactic Acid Lance 1.1 (0.7-2.0) mmol/L Calcium (8.4-10.2) mg/dL Magnesium (1.6-2.3) mg/dL Total Bilirubin (0.2-1.3) mg/dL AST (14-36) U/L ALT (4-34) U/L Alkaline Phosphatase (38-126) U/L Troponin I (0.000-0.034) ng/mL NT-Pro-B Natriuret Pep pg/mL Total Protein (6.3-8.2) g/dL Albumin (3.5-5.0) g/dL Acetone, Qual (Negative) Coronavirus (PCR) (Not Detectd) 03/29/21 03/29/21 03/29/21 Range/Units 17:29 17:29 17:29 WBC (3.8-10.6) k/uL RBC (3.80-5.40) m/uL Hgb (11.4-16.0) gm/dL Hct (34.0-46.0) % MCV (80.0-100.0) fL MCH (25.0-35.0) pg MCHC (31.0-37.0) g/dL RDW (11.5-15.5) % Plt Count (150-450) k/uL MPV Neutrophils % % Lymphocytes % % Monocytes % % Eosinophils % % Basophils % % Neutrophils # (1.3-7.7) k/uL Lymphocytes # (1.0-4.8) k/uL Monocytes # (0-1.0) k/uL Eosinophils # (0-0.7) k/uL Basophils # (0-0.2) k/uL Hypochromasia PT (9.0-12.0) sec INR (<1.2) APTT (22.0-30.0) sec Sodium 132 L (137-145) mmol/L Potassium 5.1 (3.5-5.1) mmol/L Chloride 92 L (98-107) mmol/L Carbon Dioxide 39 H (22-30) mmol/L Anion Gap 1 mmol/L BUN 22 H (7-17) mg/dL Creatinine 0.49 L (0.52-1.04) mg/dL Est GFR (CKD-EPI)AfAm >90 (>60 ml/min/1.73 sqM) Est GFR (CKD-EPI)NonAf >90 (>60 ml/min/1.73 sqM) Glucose 412 H (74-99) mg/dL Plasma Lactic Acid Lance (0.7-2.0) mmol/L Calcium 9.3 (8.4-10.2) mg/dL Magnesium 2.1 (1.6-2.3) mg/dL Total Bilirubin 0.3 (0.2-1.3) mg/dL AST 19 (14-36) U/L ALT 15 (4-34) U/L Alkaline Phosphatase 78 (38-126) U/L Troponin I <0.012 (0.000-0.034) ng/mL NT-Pro-B Natriuret Pep 215 pg/mL Total Protein 6.1 L (6.3-8.2) g/dL Albumin 3.4 L (3.5-5.0) g/dL Acetone, Qual (Negative) Coronavirus (PCR) (Not Detectd) 03/29/21 03/29/21 Range/Units 17:29 17:29 WBC (3.8-10.6) k/uL RBC (3.80-5.40) m/uL Hgb (11.4-16.0) gm/dL Hct (34.0-46.0) % MCV (80.0-100.0) fL MCH (25.0-35.0) pg MCHC (31.0-37.0) g/dL RDW (11.5-15.5) % Plt Count (150-450) k/uL MPV Neutrophils % % Lymphocytes % % Monocytes % % Eosinophils % % Basophils % % Neutrophils # (1.3-7.7) k/uL Lymphocytes # (1.0-4.8) k/uL Monocytes # (0-1.0) k/uL Eosinophils # (0-0.7) k/uL Basophils # (0-0.2) k/uL Hypochromasia PT (9.0-12.0) sec INR (<1.2) APTT (22.0-30.0) sec Sodium (137-145) mmol/L Potassium (3.5-5.1) mmol/L Chloride (98-107) mmol/L Carbon Dioxide (22-30) mmol/L Anion Gap mmol/L BUN (7-17) mg/dL Creatinine (0.52-1.04) mg/dL Est GFR (CKD-EPI)AfAm (>60 ml/min/1.73 sqM) Est GFR (CKD-EPI)NonAf (>60 ml/min/1.73 sqM) Glucose (74-99) mg/dL Plasma Lactic Acid Lance (0.7-2.0) mmol/L Calcium (8.4-10.2) mg/dL Magnesium (1.6-2.3) mg/dL Total Bilirubin (0.2-1.3) mg/dL AST (14-36) U/L ALT (4-34) U/L Alkaline Phosphatase (38-126) U/L Troponin I (0.000-0.034) ng/mL NT-Pro-B Natriuret Pep pg/mL Total Protein (6.3-8.2) g/dL Albumin (3.5-5.0) g/dL Acetone, Qual Negative (Negative) Coronavirus (PCR) Not Detected (Not Detectd) - Radiology Data Radiology results: report reviewed (Chest x-ray: No active cardiopulmonary disease) Disposition Clinical Impression: Dyspnea, COPD exacerbation, Hyperglycemia Disposition: ADMITTED IP TO THIS HOSP Condition: Stable Is patient prescribed a controlled substance at d/c from ED?: No Referrals: Chris Sears MD [Primary Care Provider] - 1-2 days Time of Disposition: 18:57
[2021-03-29 17:48] LABS: Basophils % (A) 0 %; Eosinophils % (A) 0 %; HCT 41.5 % (34.0-46.0); HGB 12.7 gm/dL (11.4-16.0); Hypochromasia Slight; Lymphocytes # (A) 0.3 k/uL (1.0-4.8); Lymphocytes % (A) 3 %; MCH 27.4 pg (25.0-35.0); MCHC 30.7 g/dL (31.0-37.0); MCV 89.4 fL (80.0-100.0); Mean Platelet Volume 7.5; Monocytes # (A) 0.2 k/uL (0-1.0); Monocytes % (A) 3 %; Neutrophils % (A) 94 %; Platelet Count 294 k/uL (150-450); RBC 4.64 m/uL (3.80-5.40); RDW 13.9 % (11.5-15.5); WBC 9.6 k/uL (3.8-10.6)
[2021-03-29 17:51] LABS: INR 0.8 (<1.2); Prothrombin Time 9.3 sec (9.0-12.0)
[2021-03-29 18:04] LABS: Partial Thromboplastin Time 20.2 sec (22.0-30.0)
--- NOTE | 2021-03-29 18:05 | XR ---
EXAMINATION TYPE: XR chest 1V portable DATE OF EXAM: 03/29/2021 COMPARISON: 11/20/2020 HISTORY: Short of breath TECHNIQUE: Single view FINDINGS: Heart is normal. Lungs are clear of consolidation. There are no hilar masses. There is mini mal pleural thickening at the lung apices. IMPRESSION: No active cardiopulmonary disease. There is clearing of the pleural fluid compared to old exam.
[2021-03-29 18:06] LABS: ALT 15 U/L (4-34); AST 19 U/L (14-36); African American GFR (CKD) >90 (>60 ml/min/1.73 sqM); Albumin 3.4 g/dL (3.5-5.0); Alkaline Phosphatase 78 U/L (38-126); Anion Gap 1 mmol/L; Blood Urea Nitrogen 22 mg/dL (7-17); Calcium 9.3 mg/dL (8.4-10.2); Carbon Dioxide 39 mmol/L (22-30); Chloride 92 mmol/L (98-107); Glucose 412 mg/dL (74-99); Magnesium 2.1 mg/dL (1.6-2.3); Non-African American GFR(CKD) >90 (>60 ml/min/1.73 sqM); Potassium 5.1 mmol/L (3.5-5.1); Sodium 132 mmol/L (137-145); Total Bilirubin 0.3 mg/dL (0.2-1.3); Total Protein 6.1 g/dL (6.3-8.2)
[2021-03-29] MEDS ORDERED: SODIUM CHLORIDE 0.9% 1,000 ML IV ONE (18:10)
[2021-03-29] MEDS ORDERED: INSULIN REGULAR 100 UNIT/ML VIAL (IM/SQ) SQ STA (18:10)
[2021-03-29] MEDS ORDERED: DOXYCYCLINE 100 MG CAP PO STA (18:38)
[2021-03-29 19:26] LABS: Glucose,Whole Blood 340 mg/dL (75-99)
[2021-03-29 19:36] LABS: Appearance,Urine Clear (Clear); Bilirubin,Urine Negative (Negative); Blood,Urine Negative (Negative); Color,Urine Light Yellow; Glucose,Urine (UA) 4+ (Negative); Ketones,Urine Negative (Negative); Leukocyte Esterase,Urine Negative (Negative); Nitrite,Urine Negative (Negative); Protein,Urine Negative (Negative); Specific Gravity,Urine 1.018 (1.001-1.035); Urobilinogen,Urine <2.0 mg/dL (<2.0)
[2021-03-29] MEDS: SODIUM CHLORIDE 0.9% 1,000 ML IV SCH (19:45)
[2021-03-29] MEDS: ALBUTEROL NEBULIZED 2.5 MG/3 ML INHALATION SCH ×2 (19:51→20:13)
[2021-03-30] MEDS: IPRATROPIUM-ALBUTEROL 3 ML NEB INHALATION PRN ×2 (00:08→04:54)
[2021-03-30] MEDS: lisinopriL 20 MG TAB PO SCH ×3 (02:04→20:22)
[2021-03-30] MEDS: SODIUM CHLORIDE 0.9% 1,000 ML IV SCH ×3 (07:30→23:53)
[2021-03-30] MEDS: INSULIN ASPART (NovoLOG) 100 UNIT/ML VIAL SQ SCH ×4 (07:41→20:48)
[2021-03-30 07:42] LABS: Glucose,Whole Blood 187 mg/dL (75-99)
[2021-03-30] MEDS: LEVOTHYROXINE 75 MCG TAB PO SCH (07:42)
[2021-03-30] MEDS: IPRATROPIUM-ALBUTEROL 3 ML NEB INHALATION SCH ×4 (08:29→19:37)
--- NOTE | 2021-03-30 08:48 | P.CNPUL ---
History of Present Illness Consult date: 03/30/21 Requesting physician: Chava Limon Reason for consult: dyspnea, cough, COPD, hypoxemia, abnormal CXR/CT Chief complaint: Shortness of breath. Shortness of breath. History of present illness: Pulmonary consult dated 03/30/2021. 75 yo female who sees my partner as a primary. The patient has history of severe COPD, hypertension, and hypothyroidism. The patient apparently smoked for many years quite heavily. She apparently quit about 3 months ago according to her. Anyway, she comes to the emergency room complaining of increasing shortness of breath, chest congestion, chest tightness, wheezing, and cough, with minimal phlegm production. The patient is seen in the emergency room, in room 15. She's currently on 2 L. She's not receiving any IV fluids. Her home medications include prednisone 10 mg a day, lisinopril, loratadine, levothyroxine, Symbicort, and DuoNeb. She also takes Tylenol. The patient is currently resting comfortably. She's able to speak in full sentences. She is feeling a bit better today than she did when she first came in. Review of Systems REVIEW OF SYSTEMS: CONSTITUTIONAL: [Negative.] NEUROLOGIC: [ Negative.] HEENT: [ Negative.] CARDIAC: [Negative.] PULMONARY: Shortness of breath, chest tightness, coughing, wheezing, and minimal phlegm production. GI: [Negative.] : [Negative.] RHEUMATOLOGIC: [ Negative.] IMMUNOLOGIC: [ Negative.] ENDOCRINE: [Negative. ] DERMATOLOGIC: [Negative.] Past Medical History Past Medical History: Heart Failure, COPD, Diabetes Mellitus, Hypertension, Osteoarthritis (OA), Respiratory Disorder, Thyroid Disorder, Vascular Disorder Additional Past Medical History / Comment(s): Pt recently admitted to [facility] on 10/23/20 with acute exacerbation chronic COPD, acute on chronic hypoxic hypercarbic respiratory failure, acute purulent tracheobronchitis, possible new onset diabetes, hyponatremia/hypovolemic, hyperkalemia, severe constipation/obstipation. Other hx: Advanced COPD, chronic hypoxic respiratory failure, home oxygen, 2010 pericarditis, former smoker, hypothyroidism, skeletal chest wall pain, chronic anxiety, anemia, PVD, past leg and foot wounds, recent L distal radius fracture/L knee wound sutures since removed, gout, confused at times per spouse and recently has been bedbound. History of Any Multi-Drug Resistant Organisms: None Reported Past Surgical History: Heart Catheterization, Hysterectomy, Tubal Ligation Additional Past Surgical History / Comment(s): 2011 cardiac cath, 2013 cardiac angiogram, colonoscopy/benign polypectomy, anal fistula repair, bilateral cataract removals/lens implants. Past Anesthesia/Blood Transfusion Reactions: Previous Problems w/ Anesthesia, Postoperative Nausea & Vomiting (PONV) Additional Past Anesthesia/Blood Transfusion Reaction / Comment(s): oxygen was "low" post op, nausea one time Past Psychological History: Anxiety Additional Psychological History / Comment(s): Pt resides with her spouse and their son. Pt had home care thru [facility] but refused them. She has home oxygen , nebulizer and a glucometer. Pt no longer drives, her spouse and son drive. Smoking Status: Former smoker Past Alcohol Use History: None Reported Additional Past Alcohol Use History / Comment(s): Pt started smoking in 1960 and recently quit per spouse. Past Drug Use History: None Reported - Past Family History Mother History Unknown: Yes Family Medical History: Cancer, Thyroid Disorder Additional Family Medical History / Comment(s): Liver Cancer Father History Unknown: Yes Family Medical History: Cancer Medications and Allergies Home Medications Medication Instructions Recorded Confirmed Type Budesonide-Formot 160-4.5 Mcg 2 puff INHALATION RT-BID #1 vial 12/05/18 03/29/21 Rx [Symbicort 160-4.5 Mcg Inhaler] Levothyroxine Sodium [Synthroid] 150 mcg PO DAILY #30 tablet 12/05/18 03/29/21 Rx Albuterol Sulfate [Proair Hfa] 2 puff INHALATION RT-QID PRN 09/25/20 03/29/21 History Loratadine [Claritin] 10 mg PO DAILY 10/23/20 03/29/21 History Acetaminophen Tab [Tylenol] 650 mg PO Q6HR PRN tab 11/14/20 03/29/21 Rx Nystatin 100,000 Unit/ml Susp 5 ml PO QID 03/29/21 03/29/21 History [Mycostatin Oral Susp] lisinopriL [Zestril] 20 mg PO BID 03/29/21 03/29/21 History predniSONE 10 mg PO DAILY 03/29/21 03/29/21 History Allergies Allergy/AdvReac Type Severity Reaction Status Date / Time bacitracin Allergy Rash/Hives Verified 03/29/21 17:24 [From Neosporin ([id number])] neomycin Allergy Rash/Hives Verified 03/29/21 17:24 [From Neosporin ([id number])] Penicillins Allergy Rash/Hives Verified 03/29/21 17:24 polymyxin B Allergy Rash/Hives Verified 03/29/21 17:24 [From Neosporin ([id number])] trimethoprim [From Polytrim] Allergy Rash/Hives Verified 03/29/21 17:24 levofloxacin [From Levaquin] AdvReac WEAKNESS Verified 03/29/21 17:24 ELDA/POLY/DEX Allergy Rash/Hives Uncoded 11/10/20 07:03 Physical Exam Osteopathic Statement: *. No significant issues noted on an osteopathic structural exam other than those noted in the History and Physical/Consult. Vitals: Vital Signs Temp Pulse Pulse Resp BP BP Pulse Ox 03/30/21 07:00 64 16 154/78 98 03/30/21 05:04 89 03/30/21 05:00 90 16 138/75 95 03/30/21 04:54 87 03/30/21 02:00 101 H 16 150/70 98 03/30/21 00:16 98 03/30/21 00:09 101 H 03/29/21 22:00 106 H 18 131/85 95 03/29/21 20:48 101 H 20 131/85 97 03/29/21 18:49 110 H 03/29/21 18:41 110 H 18 131/85 98 03/29/21 18:34 104 H 03/29/21 17:52 101 H 20 145/79 96 03/29/21 16:31 98.4 F 112 H 24 182/80 84 L Intake and Output 03/29/21 03/30/21 03/30/21 22:59 06:59 14:59 Other: Weight 51.71 kg No acute distress, oriented 3. HEENT examination is grossly unremarkable. Neck supple. Full range of motion. No adenopathy thyromegaly or neck vein distention. Cardiovascular examination reveals regular rhythm rate. S1-S2 normal. No S3 or S4. No discernible murmur noted. Heart sounds are distant. Heart rate 92 bpm. Lungs reveal coarse bilateral rhonchi and expiratory wheezes. Breath sounds are diminished throughout. Adventitious lung sounds are more prominent on forced exhalation. No crackles. Saturations 98% on 3 LITERS. Abdomen soft bowel sounds are heard. No masses or tenderness. Extremities are intact. No cyanosis clubbing or edema. Skin is without rash or lesion. Neurologic examination is brief but nonfocal. Results - Laboratory Findings CBC and BMP: 03/29/21 17:29 03/29/21 17:29 PT/INR, D-dimer PT 9.3 sec (9.0-12.0) 03/29/21 17: INR 0.8 (<1.2) 03/29/21 17:29 Abnormal lab findings: Abnormal Labs 03/29/21 03/29/21 03/29/21 17:29 17:29 17:29 MCHC 30.7 L Neutrophils # 9.0 H Lymphocytes # 0.3 L APTT 20.2 L Sodium 132 L Chloride 92 L Carbon Dioxide 39 H BUN 22 H Creatinine 0.49 L Glucose 412 H POC Glucose (mg/dL) Total Protein 6.1 L Albumin 3.4 L Urine Glucose (UA) 03/29/21 03/29/21 03/30/21 19:18 19:25 07:40 MCHC Neutrophils # Lymphocytes # APTT Sodium Chloride Carbon Dioxide BUN Creatinine Glucose POC Glucose (mg/dL) 340 H 187 H Total Protein Albumin Urine Glucose (UA) 4+ H - Diagnostic Findings Chest x-ray: image reviewed Assessment and Plan Assessment: Acute exacerbation of COPD. Essential Hypertension. Hypothyroidism. Prior history of heavy tobacco use. Plan: Plan dated 03/30/2021. Solumedrol 40 mg every 6 hours. We will add Doxycycline, 100 mg BID. We will also add pulmicort 1mg BID with performist 20 mcg, BID. Continue oxygen at 2L per minute by [place]. Continue Duonebs, QID and prn. Prognosis is guarded. All labs are reviewed. CXR is also reviewed. We will continue to follow and make recommendations where appropriate. Time with Patient: Greater than 30
[2021-03-30] MEDS: methylPREDNISolone SOD SUCCI 40 MG/ML 1 ML VIAL IV SCH ×4 (08:49→23:52)
[2021-03-30] MEDS: DOXYCYCLINE 100 MG CAP PO SCH ×2 (08:50→20:48)
[2021-03-30 09:08] LABS: Basophils # (A) 0.01 X 10*3/uL (0.00-0.10); Basophils % (A) 0.1 %; Eosinophils # (A) 0 X 10*3/uL (0.04-0.35); Eosinophils % (A) 0 %; HCT 37.8 % (37.2-46.3); HGB 10.6 g/dL (12.0-15.0); Lymphocytes # (A) 0.96 X 10*3/uL (0.90-5.00); Lymphocytes % (A) 10.4 %; MCV 92.6 fL (80.0-97.0); Mean Platelet Volume 10.2 fL (9.5-12.2); Monocytes # (A) 0.41 X 10*3/uL (0.20-1.00); Monocytes % (A) 4.5 %; Neutrophils # (A) 7.76 X 10*3/uL (1.80-7.70); Neutrophils % (A) 84.5 %; Platelet Count 293 X 10*3/uL (140-440); RBC 4.08 X 10*6/uL (4.10-5.20); RDW 13.3 % (11.5-14.5); WBC 9.19 X 10*3/uL (4.50-10.00)
[2021-03-30 10:16] LABS: ALT 10 U/L (8-44); AST 10 U/L (13-35); African American GFR (CKD) 111.8 (60.0-200.0); Albumin 3.2 g/dL (3.8-4.9); Albumin/Globulin Ratio 1.64 (1.60-3.17); Alkaline Phosphatase 61 U/L (41-126); Blood Urea Nitrogen 19.3 mg/dL (9.0-27.0); Calcium 9.2 mg/dL (8.7-10.3); Carbon Dioxide 32.4 mmol/L (21.6-31.8); Chloride 99 mmol/L (96-109); Globulin 1.9 g/dL (1.6-3.3); Glucose 190 mg/dL (70-110); Non-African American GFR(CKD) 96.4 (60.0-200.0); Potassium 5.1 mmol/L (3.5-5.5); Sodium 139 mmol/L (135-145); Total Bilirubin <0.20 mg/dL (0.30-1.20); Total Protein 5.1 g/dL (6.2-8.2)
[2021-03-30 11:10] LABS: Glucose,Whole Blood 185 mg/dL (75-99)
[2021-03-30 17:17] LABS: Glucose,Whole Blood 293 mg/dL (75-99)
--- NOTE | 2021-03-30 17:32 | P.HPIM ---
History of Present Illness H&P Date: 03/30/21 Chief Complaint: Shortness of breath Patient is a 75-year-old female with a known history of COPD on home oxygen 2 L with another cannula, hypertension, osteoarthritis, hypothyroidism, chronic hypoxic respiratory failure, chronic anxiety and placed history of smoking presents to ER with complaints of worsening shortness of breath, chest tightness and congestion worsening for the past 2 weeks. Patient started taking prednisone for the past 5 days and also using nebulizers. Patient only had minimal relief with atrial fibrillation at home and made her to come to ER. [place] was also hyperglycemic with blood sugar in 400s on admission. Patient states that she is also having increased frequency of urination for the past few weeks. Denied any complaints of fever or chills. Cough with minimal sputum production. No nausea vomiting or abdominal pain or diarrhea. No leg swelling. Patient is fully vaccinated for COVID-19. Chest x-ray showed no active cardiopulmonary disease. There is clearing of the pleural fluid compared to old exam. EKG showed sinus tachycardia Laboratory data showed WBC 9.6 hemoglobin 12.7 and platelets 294 INR 0.8 Sodium 132 potassium 5.1 chloride 92 bicarb is 39 BUN 22 and creatinine 0.49, lactic acid 1.1 Blood sugar was 412 on admission, acetone negative Troponin 1 negative ProBNP 215 Urine analysis showed 4+ glucose and negative leukocyte esterase Review of Systems Constitutional: Patient denies any fever or chills . No generalized weakness or weight loss. Abdomen: Patient denied nausea vomiting and diarrhea and abdominal pain. Cardiovascular: Patient denies any chest pain or short of breath no palpitations. Respiratory: Patient does have cough with minimal sputum production. Does have worsening shortness of breath., Chest tightness. Neurologic: Patient denied any numbness or tingling headache. Musculoskeletal: Patient denies any complaints of joint swelling or deformity. Skin: Negative Psychiatric: Negative Endocrine: No heat or cold intolerance. No recent weight gain. Genitourinary: No dysuria or hematuria. All other 14 point ROS negative except the above Past Medical History Past Medical History: Heart Failure, COPD, Diabetes Mellitus, Hypertension, Osteoarthritis (OA), Respiratory Disorder, Thyroid Disorder, Vascular Disorder Additional Past Medical History / Comment(s): Pt recently admitted to [facility] on 10/23/20 with acute exacerbation chronic COPD, acute on chronic hypoxic hyp ercarbic respiratory failure, acute purulent tracheobronchitis, possible new onset diabetes, hyponatremia/hypovolemic, hyperkalemia, severe constipation/obstipation. Other hx: Advanced COPD, chronic hypoxic respiratory failure, home oxygen, 2010 pericarditis, former smoker, hypothyroidism, skeletal chest wall pain, chronic anxiety, anemia, PVD, past leg and foot wounds, recent L distal radius fracture/L knee wound sutures since removed, gout, confused at times per spouse and recently has been bedbound. History of Any Multi-Drug Resistant Organisms: None Reported Past Surgical History: Heart Catheterization, Hysterectomy, Tubal Ligation Additional Past Surgical History / Comment(s): 2011 cardiac cath, 2013 cardiac angiogram, colonoscopy/benign polypectomy, anal fistula repair, bilateral cataract removals/lens implants. Past Anesthesia/Blood Transfusion Reactions: Previous Problems w/ Anesthesia, Postoperative Nausea & Vomiting (PONV) Additional Past Anesthesia/Blood Transfusion Reaction / Comment(s): oxygen was "low" post op, nausea one time Past Psychological History: Anxiety Additional Psychological History / Comment(s): Pt resides with her spouse and their son. Pt had home care thru [facility] but refused them. She has home oxygen, nebulizer and a glucometer. Pt no longer drives, her spouse and son drive. Smoking Status: Former smoker Past Alcohol Use History: None Reported Additional Past Alcohol Use History / Comment(s): Pt started smoking in 1960 and recently quit per spouse. Past Drug Use History: None Reported - Past Family History Mother History Unknown: Yes Family Medical History: Cancer, Thyroid Disorder Additional Family Medical History / Comment(s): Liver Cancer Father History Unknown: Yes Family Medical History: Cancer Medications and Allergies Home Medications Medication Instructions Recorded Confirmed Type Budesonide-Formot 160-4.5 Mcg 2 puff INHALATION RT-BID #1 vial 12/05/18 03/29/21 Rx [Symbicort 160-4.5 Mcg Inhaler] Levothyroxine Sodium [Synthroid] 150 mcg PO DAILY #30 tablet 12/05/18 03/29/21 Rx Albuterol Sulfate [Proair Hfa] 2 puff INHALATION RT-QID PRN 09/25/20 03/29/21 History Loratadine [Claritin] 10 mg PO DAILY 10/23/20 03/29/21 History Acetaminophen Tab [Tylenol] 650 mg PO Q6HR PRN tab 11/14/20 03/29/21 Rx Nystatin 100,000 Unit/ml Susp 5 ml PO QID 03/29/21 03/29/21 History [Mycostatin Oral Susp] lisinopriL [Zestril] 20 mg PO BID 03/29/21 03/29/21 History predniSONE 10 mg PO DAILY 03/29/21 03/29/21 History Allergies Allergy/AdvReac Type Severity Reaction Status Date / Time bacitracin Allergy Rash/Hives Verified 03/29/21 17:24 [From Neosporin ([id number])] neomycin Allergy Rash/Hives Verified 03/29/21 17:24 [From Neosporin ([id number])] Penicillins Allergy Rash/Hives Verified 03/29/21 17:24 polymyxin B Allergy Rash/Hives Verified 03/29/21 17:24 [From Neosporin ([id number])] trimethoprim [From Polytrim] Allergy Rash/Hives Verified 03/29/21 17:24 levofloxacin [From Levaquin] AdvReac WEAKNESS Verified 03/29/21 17:24 ELDA/POLY/DEX Allergy Rash/Hives Uncoded 11/10/20 07:03 Physical Exam Vitals: Vital Signs Temp Pulse Pulse Resp BP BP Pulse Ox 03/30/21 08:42 91 03/30/21 08:30 92 03/30/21 07:00 64 16 154/78 98 03/30/21 05:04 89 03/30/21 05:00 90 16 138/75 95 03/30/21 04:54 87 03/30/21 02:00 101 H 16 150/70 98 03/30/21 00:16 98 03/30/21 00:09 101 H 03/29/21 22:00 106 H 18 131/85 95 03/29/21 20:48 101 H 20 131/85 97 03/29/21 18:49 110 H 03/29/21 18:41 110 H 18 131/85 98 03/29/21 18:34 104 H 03/29/21 17:52 101 H 20 145/79 96 03/29/21 16:31 98.4 F 112 H 24 182/80 84 L Intake and Output 03/29/21 03/30/21 03/30/21 22:59 06:59 14:59 Other: Weight 51.71 kg PHYSICAL EXAMINATION: Patient is lying in the bed comfortably, no acute distress, awake alert and oriented.. HEENT: Normocephalic. Neck is supple. Pupils reactive. Nostrils clear. Oral cavity is moist. Neck reveals no JVD, carotid bruits, or thyromegaly. CHEST EXAMINATION: Trachea is central. Symmetrical expansion. Bilateral diminished air entry and minimal expiratory wheeze.. CARDIAC: Normal S1, S2 with no gallops. No murmurs , sinus tachycardia. ABDOMEN: Soft. Bowel sounds normal. No organomegaly. No abdominal bruits. Extremities: reveal no edema. No clubbing or cyanosis Neurologically awake, alert, oriented x3 with well-coordinated movements. No focal deficits noted Skin: No rash or skin lesions. Psychiatric: Coperative. Nonsuicidal Musculoskeletal: No joint swelling or deformity. Normal range of motion. Results CBC & Chem 7: 03/30/21 06:36 03/30/21 06:36 Labs: Abnormal Lab Results - Last 24 Hours (Table) 03/29/21 03/29/21 03/29/21 Range/Units 17:29 17:29 17:29 RBC (4.10-5.20) X 10*6/uL Hgb (12.0-15.0) g/dL MCH (27.0-32.0) pg MCHC 30.7 L (31.0-37.0) g/dL Immature Gran # (0.00-0.04) X 10*3/uL Neutrophils # 9.0 H (1.3-7.7) k/uL Lymphocytes # 0.3 L (1.0-4.8) k/uL Eosinophils # (0.04-0.35) X 10*3/uL APTT 20.2 L (22.0-30.0) sec Sodium 132 L (137-145) mmol/L Chloride 92 L (98-107) mmol/L Carbon Dioxide 39 H (22-30) mmol/L BUN 22 H (7-17) mg/dL Creatinine 0.49 L (0.52-1.04) mg/dL BUN/Creatinine Ratio (12.00-20.00) Ratio Glucose 412 H (74-99) mg/dL POC Glucose (mg/dL) (75-99) mg/dL Total Bilirubin (0.30-1.20) mg/dL AST (13-35) U/L Total Protein 6.1 L (6.3-8.2) g/dL Albumin 3.4 L (3.5-5.0) g/dL Urine Glucose (UA) (Negative) 03/29/21 03/29/21 03/30/21 Range/Units 19:18 19:25 06:36 RBC 4.08 L (4.10-5.20) X 10*6/uL Hgb 10.6 L (12.0-15.0) g/dL MCH 26.0 L (27.0-32.0) pg MCHC 28.0 L (31.0-37.0) g/dL Immature Gran # 0.05 H (0.00-0.04) X 10*3/uL Neutrophils # 7.76 H (1.3-7.7) k/uL Lymphocytes # (1.0-4.8) k/uL Eosinophils # 0 L (0.04-0.35) X 10*3/uL APTT (22.0-30.0) sec Sodium (137-145) mmol/L Chloride (98-107) mmol/L Carbon Dioxide (22-30) mmol/L BUN (7-17) mg/dL Creatinine (0.52-1.04) mg/dL BUN/Creatinine Ratio (12.00-20.00) Ratio Glucose (74-99) mg/dL POC Glucose (mg/dL) 340 H (75-99) mg/dL Total Bilirubin (0.30-1.20) mg/dL AST (13-35) U/L Total Protein (6.3-8.2) g/dL Albumin (3.5-5.0) g/dL Urine Glucose (UA) 4+ H (Negative) 03/30/21 03/30/21 Range/Units 06:36 07:40 RBC (4.10-5.20) X 10*6/uL Hgb (12.0-15.0) g/dL MCH (27.0-32.0) pg MCHC (31.0-37.0) g/dL Immature Gran # (0.00-0.04) X 10*3/uL Neutrophils # (1.3-7.7) k/uL Lymphocytes # (1.0-4.8) k/uL Eosinophils # (0.04-0.35) X 10*3/uL APTT (22.0-30.0) sec Sodium (137-145) mmol/L Chloride (98-107) mmol/L Carbon Dioxide 32.4 H (22-30) mmol/L BUN (7-17) mg/dL Creatinine 0.5 L (0.52-1.04) mg/dL BUN/Creatinine Ratio 42.60 H (12.00-20.00) Ratio Glucose 190 H (74-99) mg/dL POC Glucose (mg/dL) 187 H (75-99) mg/dL Total Bilirubin <0.20 L (0.30-1.20) mg/dL AST 10 L (13-35) U/L Total Protein 5.1 L (6.3-8.2) g/dL Albumin 3.2 L (3.5-5.0) g/dL Urine Glucose (UA) (Negative) Thrombosis Risk Factor Assmnt - DVT/VTE Prophylaxis DVT/VTE Prophylaxis: Pharmacologic Prophylaxis ordered - Choose All That Apply Each Risk Factor Represents 3 Points: Age 75 years or older Thrombosis Risk Factor Assessment Total Risk Factor Score: 3 Thrombosis Risk Factor Assessment Level: Moderate Risk Assessment and Plan Assessment: Acute COPD exacerbation Chronic hypoxic respiratory failure on home oxygen 2 L via nasal cannula Hyperglycemia with new onset diabetes type 2. Hyponatremia likely pseudohyponatremia Hypothyroidism Anxiety Previous history of smoking DVT prophylaxis with heparin subcu Plan: Patient will be continued on IV Solu-Medrol and duo nebs. Patient with started on insulin sliding scale and we'll check A1c level. Continue with antibiotics in the form of doxycycline and Pulmicort and Perforomist was added. Continue to monitor respiratory status and blood sugars . Pulmonary is on board. Continue with home medications. Follow closely. Time with Patient: Greater than 30
[2021-03-30] MEDS ORDERED: hydrALAZINE HCL 20 MG/ML 1 ML VIAL IVP PRN (17:48)
[2021-03-30] MEDS: BUDESONIDE 1 MG/2 ML NEBU INHALATION SCH (19:37)
[2021-03-30] MEDS: FORMOTEROL FUMARATE 20 MCG/2 ML NEBU INHALATION SCH (19:53)
[2021-03-30] MEDS: METOPROLOL TARTRATE 25 MG TAB PO SCH (20:22)
[2021-03-30] MEDS: HEPARIN SODIUM,PORCINE/PF 5,000 UNIT/0.5 ML SYRINGE SQ SCH (20:22)
[2021-03-30] MEDS: ALPRAZolam 0.25 MG TAB PO PRN (20:22)
[2021-03-30 20:30] LABS: Glucose,Whole Blood 281 mg/dL (75-99)
[2021-03-31] MEDS: LEVOTHYROXINE 75 MCG TAB PO SCH (06:01)
[2021-03-31] MEDS: methylPREDNISolone SOD SUCCI 40 MG/ML 1 ML VIAL IV SCH ×3 (06:01→16:55)
[2021-03-31 07:07] LABS: Glucose,Whole Blood 236 mg/dL (75-99)
[2021-03-31] MEDS: METOPROLOL TARTRATE 25 MG TAB PO SCH ×2 (07:17→22:07)
[2021-03-31] MEDS: HEPARIN SODIUM,PORCINE/PF 5,000 UNIT/0.5 ML SYRINGE SQ SCH ×2 (07:17→22:06)
[2021-03-31] MEDS: ALPRAZolam 0.25 MG TAB PO PRN ×2 (07:17→19:16)
[2021-03-31] MEDS: lisinopriL 20 MG TAB PO SCH ×2 (07:18→22:07)
[2021-03-31] MEDS: INSULIN ASPART (NovoLOG) 100 UNIT/ML VIAL SQ SCH ×4 (07:18→22:06)
[2021-03-31 07:25] LABS: Basophils % (A) 0 %; Eosinophils % (A) 0 %; HCT 37.8 % (34.0-46.0); HGB 11.3 gm/dL (11.4-16.0); Hypochromasia Moderate; Lymphocytes # (A) 0.6 k/uL (1.0-4.8); Lymphocytes % (A) 7 %; MCH 27.2 pg (25.0-35.0); MCHC 29.8 g/dL (31.0-37.0); MCV 91.2 fL (80.0-100.0); Mean Platelet Volume 7.4; Monocytes # (A) 0.3 k/uL (0-1.0); Monocytes % (A) 4 %; Neutrophils # (A) 8.5 k/uL (1.3-7.7); Neutrophils % (A) 88 %; Platelet Count 283 k/uL (150-450); RBC 4.15 m/uL (3.80-5.40); RDW 13.7 % (11.5-15.5); WBC 9.6 k/uL (3.8-10.6)
[2021-03-31 07:36] LABS: African American GFR (CKD) >90 (>60 ml/min/1.73 sqM); Anion Gap -2 mmol/L; Blood Urea Nitrogen 26 mg/dL (7-17); Carbon Dioxide 38 mmol/L (22-30); Chloride 96 mmol/L (98-107); Glucose 210 mg/dL (74-99); Non-African American GFR(CKD) >90 (>60 ml/min/1.73 sqM); Potassium 4.9 mmol/L (3.5-5.1); Sodium 132 mmol/L (137-145)
--- NOTE | 2021-03-31 07:44 | P.PN ---
Subjective Progress Note Date: 03/31/21 75 yo female who sees my partner as a primary. The patient has history of severe COPD, hypertension, and hypothyroidism. The patient apparently smoked for many years quite heavily. She apparently quit about 3 months ago according to her. Anyway, she comes to the emergency room complaining of increasing shortness of breath, chest congestion, chest tightness, wheezing, and cough, with minimal phlegm production. The patient is seen in the emergency room, in room 15. She's currently on 2 L. She's not receiving any IV fluids. Her home medications include prednisone 10 mg a day, lisinopril, loratadine, levothyroxine, Symbicort, and DuoNeb. She also takes Tylenol. The patient is currently resting comfortably. She's able to speak in full sentences. She is feeling a bit better today than she did when she first came in. Today's evaluation 03/31/2021 patient seen in follow-up on observation unit, she is resting comfortably in bed, she is currently on 3 L of oxygen, she states her breathing is improving, occasional cough, occasional phlegm production. Afebrile, vital signs have been stable. Patient continues on IV steroids, nebulized bronchodilators, and doxycycline, no acute events overnight. No complaints of chest pain, no hemoptysis, no swelling in bilateral lower extremities. Today's labs have been noted, and red blood cell count is 9.6, hemoglobin is 11.3, serum sodium is 132, potassium is 4.9, BUN is 26, creatinine 0.5, COVID-19 PCR was negative. Objective - Vital Signs Vital signs: Vital Signs Temp 98.3 F 03/31/21 07:15 Pulse 71 03/31/21 07:15 Resp 18 03/31/21 07:15 BP 158/74 03/31/21 07:15 Pulse Ox 100 03/31/21 07:15 Intake & Output 03/30/21 03/31/21 03/31/21 18:59 06:59 18:59 Intake Total 1190 Balance 1190 Intake: Intake, IV Titration 900 Amount Sodium Chloride 0.9% 1, 900 000 ml @ 100 mls/hr IV . Q10H [facility] Rx#:[id number] Oral 290 Other: Voiding Method Bedpan # Voids 2 1 - Exam GENERAL EXAM: Alert, pleasant, 75-year-old frail looking white female, looks ol gabrielle than stated age, currently on 3 L of oxygen, thin built comfortable in no apparent distress. HEAD: Normocephalic/atraumatic. EYES: Normal reaction of pupils, equal size. Conjunctiva pink, sclera white. NOSE: Clear with pink turbinates. THROAT: No erythema or exudates. NECK: No masses, no JVD, no thyroid enlargement, no adenopathy. CHEST: No chest wall deformity. Symmetrical expansion. LUNGS: Diminished breath sounds equal air entry with end expiratory wheezes CVS: Regular rate and rhythm, normal S1 and S2, no gallops, no murmurs, no rubs ABDOMEN: Soft, nontender. No hepatosplenomegaly, normal bowel sounds, no guarding or rigidity. EXTREMITIES: No clubbing, no edema, no cyanosis, 2+ pulses and upper and lower extremities. MUSCULOSKELETAL: Muscle strength and tone normal. SPINE: No scoliosis or deformity SKIN: No rashes CENTRAL NERVOUS SYSTEM: Alert and oriented -3. No focal deficits, tone is normal in all 4 extremities. PSYCHIATRIC: Alert and oriented -3. Appropriate affect. Intact judgment and insight. - Labs CBC & Chem 7: 03/31/21 06:54 03/31/21 06:54 Labs: Abnormal Lab Results - Last 24 Hours (Table) 03/30/21 03/30/21 03/30/21 Range/Units 06:36 06:36 07:40 RBC 4.08 L (4.10-5.20) X 10*6/uL Hgb 10.6 L (12.0-15.0) g/dL MCH 26.0 L (27.0-32.0) pg MCHC 28.0 L (32.0-37.0) g/dL Immature Gran # 0.05 H (0.00-0.04) X 10*3/uL Neutrophils # 7.76 H (1.80-7.70) X 10*3/uL Lymphocytes # (1.0-4.8) k/uL Eosinophils # 0 L (0.04-0.35) X 10*3/uL Sodium (137-145) mmol/L Chloride (98-107) mmol/L Carbon Dioxide 32.4 H (21.6-31.8) mmol/L BUN (7-17) mg/dL Creatinine 0.5 L (0.6-1.5) mg/dL BUN/Creatinine Ratio 42.60 H (12.00-20.00) Ratio Glucose 190 H (70-110) mg/dL POC Glucose (mg/dL) 187 H (75-99) mg/dL Total Bilirubin <0.20 L (0.30-1.20) mg/dL AST 10 L (13-35) U/L Total Protein 5.1 L (6.2-8.2) g/dL Albumin 3.2 L (3.8-4.9) g/dL 03/30/21 03/30/21 03/30/21 Range/Units 11:08 17:15 20:28 RBC (4.10-5.20) X 10*6/uL Hgb (12.0-15.0) g/dL MCH (27.0-32.0) pg MCHC (32.0-37.0) g/dL Immature Gran # (0.00-0.04) X 10*3/uL Neutrophils # (1.80-7.70) X 10*3/uL Lymphocytes # (1.0-4.8) k/uL Eosinophils # (0.04-0.35) X 10*3/uL Sodium (137-145) mmol/L Chloride (98-107) mmol/L Carbon Dioxide (21.6-31.8) mmol/L BUN (7-17) mg/dL Creatinine (0.6-1.5) mg/dL BUN/Creatinine Ratio (12.00-20.00) Ratio Glucose (70-110) mg/dL POC Glucose (mg/dL) 185 H 293 H 281 H (75-99) mg/dL Total Bilirubin (0.30-1.20) mg/dL AST (13-35) U/L Total Protein (6.2-8.2) g/dL Albumin (3.8-4.9) g/dL 03/31/21 03/31/21 03/31/21 Range/Units 06:54 06:54 07:05 RBC (4.10-5.20) X 10*6/uL Hgb 11.3 L (12.0-15.0) g/dL MCH (27.0-32.0) pg MCHC 29.8 L (32.0-37.0) g/dL Immature Gran # (0.00-0.04) X 10*3/uL Neutrophils # 8.5 H (1.80-7.70) X 10*3/uL Lymphocytes # 0.6 L (1.0-4.8) k/uL Eosinophils # (0.04-0.35) X 10*3/uL Sodium 132 L (137-145) mmol/L Chloride 96 L (98-107) mmol/L Carbon Dioxide 38 H (21.6-31.8) mmol/L BUN 26 H (7-17) mg/dL Creatinine (0.6-1.5) mg/dL BUN/Creatinine Ratio (12.00-20.00) Ratio Glucose 210 H (70-110) mg/dL POC Glucose (mg/dL) 236 H (75-99) mg/dL Total Bilirubin (0.30-1.20) mg/dL AST (13-35) U/L Total Protein (6.2-8.2) g/dL Albumin (3.8-4.9) g/dL Microbiology - Last 24 Hours (Table) 03/29/21 17:15 Blood Culture - Preliminary Blood No Growth after 24 hours Assessment and Plan Plan: Assessment: #1. Acute exacerbation of COPD #2. Advanced COPD on home oxygen usually wears 2 L of oxygen at home #3. History of hypertension #4. Former smoker Plan: Continue current medical treatment Continue IV steroids and nebulized bronchodilators and antibiotics Breathing is improving, FiO2 is down to 2 L and this is what the patient usually wears at home Increase activity as tolerated Not quite ready for discharge, still mildly bronchospastic I performed a history & physical examination of the patient and discussed their management with my nurse practitioner, Galina Mar. I reviewed the nurse practitioner's note and agree with the documented findings and plan of care. Lung sounds are positive for diffuse wheezes throughout the lung bauman. The findings and the impression was discussed with the patient. I attest to the documentation by the nurse practitioner. Time with Patient: Less than 30
[2021-03-31] MEDS: DOXYCYCLINE 100 MG CAP PO SCH ×2 (08:19→22:06)
[2021-03-31] MEDS: IPRATROPIUM-ALBUTEROL 3 ML NEB INHALATION SCH ×3 (08:45→15:38)
[2021-03-31] MEDS: BUDESONIDE 1 MG/2 ML NEBU INHALATION SCH (08:45)
[2021-03-31] MEDS: FORMOTEROL FUMARATE 20 MCG/2 ML NEBU INHALATION SCH (08:45)
[2021-03-31 11:31] LABS: Glucose,Whole Blood 187 mg/dL (75-99)
[2021-03-31] MEDS: SODIUM CHLORIDE 0.9% 1,000 ML IV SCH ×2 (11:49→19:24)
[2021-03-31 16:48] LABS: Glucose,Whole Blood 269 mg/dL (75-99)
[2021-03-31 19:49] LABS: Glucose,Whole Blood 254 mg/dL (75-99)
--- NOTE | 2021-03-31 22:27 | P.PN ---
Subjective Progress Note Date: 03/31/21 Principal diagnosis: Acute COPD exacerbation Patient is a 75-year-old female with a known history of COPD on home oxygen 2 L with another cannula, hypertension, osteoarthritis, hypothyroidism, chronic hypoxic respiratory failure, chronic anxiety and placed history of smoking pre sents to ER with complaints of worsening shortness of breath, chest tightness and congestion worsening for the past 2 weeks. Patient started taking prednisone for the past 5 days and also using nebulizers. Patient only had minimal relief with atrial fibrillation at home and made her to come to ER. Patient was also hyperglycemic with blood sugar in 400s on admission. Patient states that she is also having increased frequency of urination for the past few weeks. Denied any complaints of fever or chills. Cough with minimal sputum production. No nausea vomiting or abdominal pain or diarrhea. No leg swelling. Patient is fully vaccinated for COVID-19. Chest x-ray showed no active cardiopulmonary disease. There is clearing of the pleural fluid compared to old exam. EKG showed sinus tachycardia Laboratory data showed WBC 9.6 hemoglobin 12.7 and platelets 294 INR 0.8 Sodium 132 potassium 5.1 chloride 92 bicarb is 39 BUN 22 and creatinine 0.49, lactic acid 1.1 Blood sugar was 412 on admission, acetone negative Troponin 1 negative ProBNP 215 Urine analysis showed 4+ glucose and negative leukocyte esterase 03/31/2021 Patient is currently resting in the bed. Still complaining of shortness of breath but improved compared to yesterday. Still having cough. No complaints of chest pain. Blood sugar is also elevated. Patient is being continued on IV steroids, duo nebs and antibiotics involve doxycycline. Patient has been afebrile. Still feels weak. Laboratory data showed WBC 9.6 hemoglobin 0.3 and platelets 283 Sodium 132 potassium 4.9 chloride 96 BUN 26 and creatinine 0.520 A1c level is 7.5 Current medications reviewed. Objective - Vital Signs Vital signs: Vital Signs Temp 98.4 F 03/31/21 20:00 Pulse 75 03/31/21 20:00 Resp 18 03/31/21 20:00 BP 176/74 03/31/21 20:00 Pulse Ox 97 03/31/21 20:00 Intake & Output 03/31/21 03/31/21 04/01/21 06:59 18:59 06:59 Intake Total 1190 1200 Balance 1190 1200 Intake: Intake, IV Titration 900 1200 Amount Sodium Chloride 0.9% 1, 900 1200 000 ml @ 100 mls/hr IV . Q10H [facility] Rx#:[id number] Oral 290 Other: Voiding Method Bedpan # Voids 1 2 - Exam PHYSICAL EXAMINATION: Patient is lying in the bed comfortably, no acute distress, awake alert and oriented.. HEENT: Normocephalic. Neck is supple. Pupils reactive. Nostrils clear. Oral cavity is moist. Neck reveals no JVD, carotid bruits, or thyromegaly. CHEST EXAMINATION: Trachea is central. Symmetrical expansion. Bilateral diminished air entry and minimal expiratory wheeze.. CARDIAC: Normal S1, S2 with no gallops. No murmurs , sinus tachycardia. ABDOMEN: Soft. Bowel sounds normal. No organomegaly. No abdominal bruits. Extremities: reveal no edema. No clubbing or cyanosis Neurologically awake, alert, oriented x3 with well-coordinated movements. No focal deficits noted Skin: No rash or skin lesions. Psychiatric: Coperative. Nonsuicidal Musculoskeletal: No joint swelling or deformity. Normal range of motion. - Labs CBC & Chem 7: 03/31/21 06:54 03/31/21 06:54 Labs: Abnormal Lab Results - Last 24 Hours (Table) 03/31/21 03/31/21 03/31/21 Range/Units 06:54 06:54 06:54 Hgb 11.3 L (11.4-16.0) gm/dL MCHC 29.8 L (31.0-37.0) g/dL Neutrophils # 8.5 H (1.3-7.7) k/uL Lymphocytes # 0.6 L (1.0-4.8) k/uL Sodium 132 L (137-145) mmol/L Chloride 96 L (98-107) mmol/L Carbon Dioxide 38 H (22-30) mmol/L BUN 26 H (7-17) mg/dL Glucose 210 H (74-99) mg/dL POC Glucose (mg/dL) (75-99) mg/dL Hemoglobin A1c 7.5 H (4.0-6.0) % 03/31/21 03/31/21 03/31/21 Range/Units 07:05 11:29 16:46 Hgb (11.4-16.0) gm/dL MCHC (31.0-37.0) g/dL Neutrophils # (1.3-7.7) k/uL Lymphocytes # (1.0-4.8) k/uL Sodium (137-145) mmol/L Chloride (98-107) mmol/L Carbon Dioxide (22-30) mmol/L BUN (7-17) mg/dL Glucose (74-99) mg/dL POC Glucose (mg/dL) 236 H 187 H 269 H (75-99) mg/dL Hemoglobin A1c (4.0-6.0) % 03/31/21 Range/Units 19:48 Hgb (11.4-16.0) gm/dL MCHC (31.0-37.0) g/dL Neutrophils # (1.3-7.7) k/uL Lymphocytes # (1.0-4.8) k/uL Sodium (137-145) mmol/L Chloride (98-107) mmol/L Carbon Dioxide (22-30) mmol/L BUN (7-17) mg/dL Glucose (74-99) mg/dL POC Glucose (mg/dL) 254 H (75-99) mg/dL Hemoglobin A1c (4.0-6.0) % Microbiology - Last 24 Hours (Table) 03/29/21 17:15 Blood Culture - Preliminary Blood No Growth after 48 hours Assessment and Plan Assessment: Acute COPD exacerbation Chronic hypoxic respiratory failure on home oxygen 2 L via nasal cannula Hyperglycemia with new onset diabetes type 2. Hyponatremia likely pseudohyponatremia Hypothyroidism Anxiety Previous history of smoking DVT prophylaxis with heparin subcu Plan: Patient will be continued on IV Solu-Medrol and duo nebs. Patient with started on insulin sliding scale and A1 c 7.5. Continue with antibiotics in the form of doxycycline and Pulmicort and Perforomist was added. Continue to monitor respiratory status and blood sugars . Pulmonary is on board. Continue with home medications. Follow closely. Time with Patient: Greater than 30
[2021-04-01] MEDS: IPRATROPIUM-ALBUTEROL 3 ML NEB INHALATION PRN (00:11)
[2021-04-01] MEDS: BUDESONIDE 1 MG/2 ML NEBU INHALATION SCH ×2 (00:58→07:43)
[2021-04-01] MEDS: FORMOTEROL FUMARATE 20 MCG/2 ML NEBU INHALATION SCH ×2 (00:59→07:43)
[2021-04-01] MEDS: IPRATROPIUM-ALBUTEROL 3 ML NEB INHALATION SCH ×5 (00:59→21:18)
[2021-04-01] MEDS: methylPREDNISolone SOD SUCCI 40 MG/ML 1 ML VIAL IV SCH ×2 (01:15→06:08)
[2021-04-01] MEDS: SODIUM CHLORIDE 0.9% 1,000 ML IV SCH (03:37)
[2021-04-01] MEDS: LEVOTHYROXINE 75 MCG TAB PO SCH (06:08)
[2021-04-01] MEDS: ALPRAZolam 0.25 MG TAB PO PRN ×3 (06:08→20:59)
[2021-04-01 06:59] LABS: Glucose,Whole Blood 167 mg/dL (75-99)
--- NOTE | 2021-04-01 07:52 | P.PN ---
Subjective Progress Note Date: 04/01/21 75 yo female who sees my partner as a primary. The patient has history of severe COPD, hypertension, and hypothyroidism. The patient apparently smoked for many years quite heavily. She apparently quit about 3 months ago according to her. Anyway, she comes to the emergency room complaining of increasing shortness of breath, chest congestion, chest tightness, wheezing, and cough, with minimal phlegm production. The patient is seen in the emergency room, in room 15. She's currently on 2 L. She's not receiving any IV fluids. Her home medications include prednisone 10 mg a day, lisinopril, loratadine, levothyroxine, Symbicort, and DuoNeb. She also takes Tylenol. The patient is currently resting comfortably. She's able to speak in full sentences. She is feeling a bit better today than she did when she first came in. Today's evaluation 03/31/2021 patient seen in follow-up on observation unit, she is resting comfortably in bed, she is currently on 3 L of oxygen, she states her breathing is improving, occasional cough, occasional phlegm production. Afebrile, vital signs have been stable. Patient continues on IV steroids, nebulized bronchodilators, and doxycycline, no acute events overnight. No complaints of chest pain, no hemoptysis, no swelling in bilateral lower extremities. Today's labs have been noted, and red blood cell count is 9.6, hemoglobin is 11.3, serum sodium is 132, potassium is 4.9, BUN is 26, creatinine 0.5, COVID-19 PCR was negative. On today's evaluation on 04/01/2021 patient seen in follow-up on observation unit, she is resting comfortably in bed, she is weak, but appears to be comfortable, no wheezing or rhonchi appreciated on today's exam. No new labs today, no new chest x-ray, vital signs have been stable overnight, no fever or chills, patient has been treated with IV steroids, nebulized bronchodilators. She is on doxycycline for empiric antibiotic coverage. She's had no acute events overnight, increase activity as tolerated, she is close to her baseline, she could probably consider for discharge home today. Objective - Vital Signs Vital signs: Vital Signs Temp 97.7 F 04/01/21 07:42 Pulse 64 04/01/21 07:44 Resp 20 04/01/21 07:42 BP 163/75 04/01/21 07:42 Pulse Ox 100 04/01/21 07:42 Intake & Output 03/31/21 04/01/21 04/01/21 18:59 06:59 18:59 Intake Total 1200 1700 Balance 1200 1700 Intake: Intake, IV Titration 1200 1700 Amount Sodium Chloride 0.9% 1, 1200 1700 000 ml @ 100 mls/hr IV . Q10H [facility] Rx#:[id number] Other: Voiding Method Bedpan Toilet Bedpan # Voids 2 - Exam GENERAL EXAM: Alert, pleasant, 75-year-old frail looking white female, looks older than stated age, currently on 3 L of oxygen, thin built comfortable in no apparent distress. HEAD: Normocephalic/atraumatic. EYES: Normal reaction of pupils, equal size. Conjunctiva pink, sclera white. NOSE: Clear with pink turbinates. THROAT: No erythema or exudates. NECK: No masses, no JVD, no thyroid enlargement, no adenopathy. CHEST: No chest wall deformity. Symmetrical expansion. LUNGS: Diminished breath sounds equal air entry with end expiratory wheezes CVS: Regular rate and rhythm, normal S1 and S2, no gallops, no murmurs, no rubs ABDOMEN: Soft, nontender. No hepatosplenomegaly, normal bowel sounds, no guarding or rigidity. EXTREMITIES: No clubbing, no edema, no cyanosis, 2+ pulses and upper and lower extremities. MUSCULOSKELETAL: Muscle strength and tone normal. SPINE: No scoliosis or deformity SKIN: No rashes CENTRAL NERVOUS SYSTEM: Alert and oriented -3. No focal deficits, tone is normal in all 4 extremities. PSYCHIATRIC: Alert and oriented -3. Appropriate affect. Intact judgment and insight. - Labs CBC & Chem 7: 03/31/21 06:54 03/31/21 06:54 Labs: Abnormal Lab Results - Last 24 Hours (Table) 03/31/21 03/31/21 03/31/21 Range/Units 06:54 11:29 16:46 POC Glucose (mg/dL) 187 H 269 H (75-99) mg/dL Hemoglobin A1c 7.5 H (4.0-6.0) % 03/31/21 04/01/21 Range/Units 19:48 06:58 POC Glucose (mg/dL) 254 H 167 H (75-99) mg/dL Hemoglobin A1c (4.0-6.0) % Microbiology - Last 24 Hours (Table) 03/29/21 17:15 Blood Culture - Preliminary Blood No Growth after 48 hours Assessment and Plan Plan: Assessment: #1. Acute exacerbation of COPD #2. Advanced COPD on home oxygen usually wears 2 L of oxygen at home #3. History of hypertension #4. Former smoker Plan: switch IV steroids to oral prednisone 40 mg, continue doxycycline Activity as tolerated Discontinue IV fluids She is close to her baseline, breathing is improving she's had no acute events overnight From the pulmonary perspective she could be considered for discharge home if cleared by medicine Follow-up with Dr. Carlson in the office next week I performed a history & physical examination of the patient and discussed their management with my nurse practitioner, Galina Mar. I reviewed the nurse practitioner's note and agree with the documented findings and plan of care. Lung sounds are positive for diffuse wheezes throughout the lung bauman. The findings and the impression was discussed with the patient. I attest to the documentation by the nurse practitioner.
[2021-04-01] MEDS: SYMBICORT 160-4.5 MCG INHALER INHALATION SCH ×2 (07:59→21:18)
[2021-04-01] MEDS: HEPARIN SODIUM,PORCINE/PF 5,000 UNIT/0.5 ML SYRINGE SQ SCH ×2 (08:05→20:59)
[2021-04-01] MEDS: INSULIN ASPART (NovoLOG) 100 UNIT/ML VIAL SQ SCH ×4 (08:05→20:59)
[2021-04-01] MEDS: METOPROLOL TARTRATE 25 MG TAB PO SCH ×2 (08:05→20:59)
[2021-04-01] MEDS: lisinopriL 20 MG TAB PO SCH ×2 (08:06→20:59)
[2021-04-01] MEDS: DOXYCYCLINE 100 MG CAP PO SCH ×2 (08:06→21:00)
[2021-04-01] MEDS: predniSONE 20 MG TAB PO SCH (08:08)
[2021-04-01 11:12] LABS: Glucose,Whole Blood 311 mg/dL (75-99)
[2021-04-01 16:38] LABS: Glucose,Whole Blood 182 mg/dL (75-99)
[2021-04-01 20:35] LABS: Glucose,Whole Blood 237 mg/dL (75-99)
[2021-04-01] MEDS: INSULIN DETEMIR (LEVEMIR) 100 UNIT/ML SYR SQ SCH (21:00)
--- NOTE | 2021-04-01 23:57 | P.PN ---
Subjective Progress Note Date: 04/01/21 Principal diagnosis: Acute COPD exacerbation Patient is a 75-year-old female with a known history of COPD on home oxygen 2 L with another cannula, hypertension, osteoarthritis, hypothyroidism, chronic hypoxic respiratory failure, chronic anxiety and placed history of smoking pre sents to ER with complaints of worsening shortness of breath, chest tightness and congestion worsening for the past 2 weeks. Patient started taking prednisone for the past 5 days and also using nebulizers. Patient only had minimal relief with atrial fibrillation at home and made her to come to ER. Patient was also hyperglycemic with blood sugar in 400s on admission. Patient states that she is also having increased frequency of urination for the past few weeks. Denied any complaints of fever or chills. Cough with minimal sputum production. No nausea vomiting or abdominal pain or diarrhea. No leg swelling. Patient is fully vaccinated for COVID-19. Chest x-ray showed no active cardiopulmonary disease. There is clearing of the pleural fluid compared to old exam. EKG showed sinus tachycardia Laboratory data showed WBC 9.6 hemoglobin 12.7 and platelets 294 INR 0.8 Sodium 132 potassium 5.1 chloride 92 bicarb is 39 BUN 22 and creatinine 0.49, lactic acid 1.1 Blood sugar was 412 on admission, acetone negative Troponin 1 negative ProBNP 215 Urine analysis showed 4+ glucose and negative leukocyte esterase 03/31/2021 Patient is currently resting in the bed. Still complaining of shortness of breath but improved compared to yesterday. Still having cough. No complaints of chest pain. Blood sugar is also elevated. Patient is being continued on IV steroids, duo nebs and antibiotics involve doxycycline. Patient has been afebrile. Still feels weak. Laboratory data showed WBC 9.6 hemoglobin 0.3 and platelets 283 Sodium 132 potassium 4.9 chloride 96 BUN 26 and creatinine 0.520 A1c level is 7.5 03/02/2021 Patient is currently resting in the bed and breathing status is better compared to yesterday. Patient states that she is still feeling weak. Blood sugar is elevated in 300s. No complaints of chest pain. No fever no chills. Patient is being continued IV steroids, duo nebs and antibiotics no cough doxycycline. Patient is currently on 2 L oxygen via nasal cannula. Pulmonary is on board. Anticipate discharge in the next 24 hours. Current medications reviewed. Objective - Vital Signs Vital signs: Vital Signs Temp 98 F 04/01/21 14:09 Pulse 72 04/01/21 21:27 Resp 22 04/01/21 14:09 BP 156/75 04/01/21 15:51 Pulse Ox 97 04/01/21 21:18 Intake & Output 04/01/21 04/01/21 04/02/21 06:59 18:59 06:59 Intake Total 1700 240 Balance 1700 240 Intake: Intake, IV Titration 1700 Amount Sodium Chloride 0.9% 1, 1700 000 ml @ 100 mls/hr IV . Q10H [facility] Rx#:[id number] Oral 240 Other: Voiding Method Toilet Toilet Bedpan Bedpan # Voids 2 - Exam PHYSICAL EXAMINATION: Patient is lying in the bed comfortably, no acute distress, awake alert and oriented.. HEENT: Normocephalic. Neck is supple. Pupils reactive. Nostrils clear. Oral cavity is moist. Neck reveals no JVD, carotid bruits, or thyromegaly. CHEST EXAMINATION: Trachea is central. Symmetrical expansion. Bilateral di minished air entry and minimal expiratory wheeze.. CARDIAC: Normal S1, S2 with no gallops. No murmurs , sinus tachycardia. ABDOMEN: Soft. Bowel sounds normal. No organomegaly. No abdominal bruits. Extremities: reveal no edema. No clubbing or cyanosis Neurologically awake, alert, oriented x3 with well-coordinated movements. No focal deficits noted Skin: No rash or skin lesions. Psychiatric: Coperative. Nonsuicidal Musculoskeletal: No joint swelling or deformity. Normal range of motion. - Labs CBC & Chem 7: 03/31/21 06:54 03/31/21 06:54 Labs: Abnormal Lab Results - Last 24 Hours (Table) 04/01/21 04/01/21 04/01/21 Range/Units 06:58 11:11 16:36 POC Glucose (mg/dL) 167 H 311 H 182 H (75-99) mg/dL 04/01/21 Range/Units 20:34 POC Glucose (mg/dL) 237 H (75-99) mg/dL Microbiology - Last 24 Hours (Table) 03/29/21 17:15 Blood Culture - Preliminary Blood No Growth after 72 hours Assessment and Plan Assessment: Acute COPD exacerbation Chronic hypoxic respiratory failure on home oxygen 2 L via nasal cannula Hyperglycemia with new onset diabetes type 2. Hyponatremia likely pseudohyponatremia Hypothyroidism Anxiety Previous history of smoking DVT prophylaxis with heparin subcu Plan: Continuous oxygen at 2 L via nasal cannula., Patient was continued on IV Solu- Medrol and duo nebs. Patient with started on insulin sliding scale and A1 c 7.5. Patient was started on Levemir 10 units at bedtime and IV steroids changed to prednisone by mouth. Continue with insulin sliding scale. Continue with antibiotics in the form of doxycycline and Pulmicort and Perforomist was added. Continue to monitor respiratory status and blood sugars . Pulmonary is on board. Continue with home medications. Follow closely.
[2021-04-02] MEDS: IPRATROPIUM-ALBUTEROL 3 ML NEB INHALATION PRN (04:37)
[2021-04-02] MEDS: LEVOTHYROXINE 75 MCG TAB PO SCH (06:05)
[2021-04-02] MEDS: HEPARIN SODIUM,PORCINE/PF 5,000 UNIT/0.5 ML SYRINGE SQ SCH ×2 (07:47→23:47)
[2021-04-02] MEDS: ALPRAZolam 0.25 MG TAB PO PRN ×3 (07:48→23:56)
[2021-04-02] MEDS: lisinopriL 20 MG TAB PO SCH ×2 (07:48→23:46)
[2021-04-02] MEDS: METOPROLOL TARTRATE 25 MG TAB PO SCH ×2 (07:48→23:46)
[2021-04-02] MEDS: DOXYCYCLINE 100 MG CAP PO SCH ×2 (07:48→23:46)
[2021-04-02] MEDS: predniSONE 20 MG TAB PO SCH (07:48)
[2021-04-02 07:55] LABS: Glucose,Whole Blood 113 mg/dL (75-99)
[2021-04-02] MEDS: INSULIN ASPART (NovoLOG) 100 UNIT/ML VIAL SQ SCH ×4 (07:55→23:45)
--- NOTE | 2021-04-02 07:58 | P.PN ---
Subjective Progress Note Date: 04/02/21 75 yo female who sees my partner as a primary. The patient has history of severe COPD, hypertension, and hypothyroidism. The patient apparently smoked for many years quite heavily. She apparently quit about 3 months ago according to her. Anyway, she comes to the emergency room complaining of increasing shortness of breath, chest congestion, chest tightness, wheezing, and cough, with minimal phlegm production. The patient is seen in the emergency room, in room 15. She's currently on 2 L. She's not receiving any IV fluids. Her home medications include prednisone 10 mg a day, lisinopril, loratadine, levothyroxine, Symbicort, and DuoNeb. She also takes Tylenol. The patient is currently resting comfortably. She's able to speak in full sentences. She is feeling a bit better today than she did when she first came in. Today's evaluation 03/31/2021 patient seen in follow-up on observation unit, she is resting comfortably in bed, she is currently on 3 L of oxygen, she states her breathing is improving, occasional cough, occasional phlegm production. Afebrile, vital signs have been stable. Patient continues on IV steroids, nebulized bronchodilators, and doxycycline, no acute events overnight. No complaints of chest pain, no hemoptysis, no swelling in bilateral lower extremities. Today's labs have been noted, and red blood cell count is 9.6, hemoglobin is 11.3, serum sodium is 132, potassium is 4.9, BUN is 26, creatinine 0.5, COVID-19 PCR was negative. On today's evaluation on 04/01/2021 patient seen in follow-up on observation unit, she is resting comfortably in bed, she is weak, but appears to be comfortable, no wheezing or rhonchi appreciated on today's exam. No new labs today, no new chest x-ray, vital signs have been stable overnight, no fever or chills, patient has been treated with IV steroids, nebulized bronchodilators. She is on doxycycline for empiric antibiotic coverage. She's had no acute events overnight, increase activity as tolerated, she is close to her baseline, she could probably consider for discharge home today. On today's evaluation on 04/02/2021 patient seen in follow-up on observation unit. Worsening dyspnea, she is currently on 2 L of oxygen pulse ox is 96%, she is afebrile, vital signs have been stable, no acute events overnight, no fever or chills, lung sounds are diminished, no wheezing, no rhonchi. Chest x-ray labs today, patient has been treated with the steroids, nebulized bronchodilators and antibiotics, she is ready for discharge home today. Objective - Vital Signs Vital signs: Vital Signs Temp 98.0 F 04/02/21 02:00 Pulse 64 04/02/21 04:48 Resp 20 04/02/21 02:00 BP 136/71 04/02/21 02:00 Pulse Ox 96 04/02/21 02:00 Intake & Output 04/01/21 04/02/21 04/02/21 18:59 06:59 18:59 Intake Total 240 Balance 240 Intake: Oral 240 Other: Voiding Method Toilet Toilet Bedpan # Voids 2 1 - Exam GENERAL EXAM: Alert, pleasant, 75-year-old frail looking white female, looks older than stated age, currently on 2 L of oxygen, thin built comfortable in no apparent distress. HEAD: Normocephalic/atraumatic. EYES: Normal reaction of pupils, equal size. Conjunctiva pink, sclera white. NOSE: Clear with pink turbinates. THROAT: No erythema or exudates. NECK: No masses, no JVD, no thyroid enlargement, no adenopathy. CHEST: No chest wall deformity. Symmetrical expansion. LUNGS: Diminished breath sounds equal air entry with end expiratory wheezes CVS: Regular rate and rhythm, normal S1 and S2, no gallops, no murmurs, no rubs ABDOMEN: Soft, nontender. No hepatosplenomegaly, normal bowel sounds, no guarding or rigidity. EXTREMITIES: No clubbing, no edema, no cyanosis, 2+ pulses and upper and lower extremities. MUSCULOSKELETAL: Muscle strength and tone normal. SPINE: No scoliosis or deformity SKIN: No rashes CENTRAL NERVOUS SYSTEM: Alert and oriented -3. No focal deficits, tone is normal in all 4 extremities. PSYCHIATRIC: Alert and oriented -3. Appropriate affect. Intact judgment and insight. - Labs CBC & Chem 7: 03/31/21 06:54 03/31/21 06:54 Labs: Abnormal Lab Results - Last 24 Hours (Table) 04/01/21 04/01/21 04/01/21 Range/Units 11:11 16:36 20:34 POC Glucose (mg/dL) 311 H 182 H 237 H (75-99) mg/dL 04/02/21 Range/Units 07:53 POC Glucose (mg/dL) 113 H (75-99) mg/dL Microbiology - Last 24 Hours (Table) 03/29/21 17:15 Blood Culture - Preliminary Blood No Growth after 72 hours Assessment and Plan Plan: Assessment: #1. Acute exacerbation of COPD #2. Advanced COPD on home oxygen usually wears 2 L of oxygen at home #3. History of hypertension #4. Former smoker Plan: No acute events overnight, patient is improving Vital signs are stable She is close to her baseline, From the pulmonary perspective she could be considered for discharge home if cleared by medicine complete prednisone taper, and complete her course of doxycycline Follow-up with Dr. Carlson in the office next week I performed a history & physical examination of the patient and discussed their management with my nurse practitioner, Galina Mar. I reviewed the nurse practitioner's note and agree with the documented findings and plan of care. Lung sounds are positive for diffuse wheezes throughout the lung bauman. The findings and the impression was discussed with the patient. I attest to the documentation by the nurse practitioner. Time with Patient: Less than 30
[2021-04-02 08:05] LABS: HGB 12.4 gm/dL (11.4-16.0); Hypochromasia Slight; MCH 27.4 pg (25.0-35.0); MCHC 30.8 g/dL (31.0-37.0); MCV 88.8 fL (80.0-100.0); Mean Platelet Volume 7.6; Platelet Count 293 k/uL (150-450); RBC 4.51 m/uL (3.80-5.40); RDW 13.9 % (11.5-15.5); WBC 8.2 k/uL (3.8-10.6)
[2021-04-02 08:22] LABS: African American GFR (CKD) >90 (>60 ml/min/1.73 sqM); Blood Urea Nitrogen 34 mg/dL (7-17); Calcium 9.3 mg/dL (8.4-10.2); Chloride 95 mmol/L (98-107); Glucose 93 mg/dL (74-99); Non-African American GFR(CKD) 89 (>60 ml/min/1.73 sqM); Potassium 4.7 mmol/L (3.5-5.1); Sodium 136 mmol/L (137-145)
[2021-04-02 08:29] LABS: Anion Gap 0 mmol/L
[2021-04-02] MEDS: IPRATROPIUM-ALBUTEROL 3 ML NEB INHALATION SCH ×4 (08:30→21:07)
[2021-04-02] MEDS: SYMBICORT 160-4.5 MCG INHALER INHALATION SCH ×2 (08:30→21:07)
[2021-04-02 08:36] LABS: Carbon Dioxide 41 mmol/L (22-30)
[2021-04-02 13:16] LABS: Glucose,Whole Blood 333 mg/dL (75-99)
[2021-04-02 13:33] LABS: Eosinophils # (M) 0.08 k/uL (0-0.7); Lymphocytes # (M) 1.64 k/uL (1.0-4.8); Neutrophils # (M) 5.58 k/uL (1.3-7.7); Neutrophils % (M) 68 %; Nucleated Red Blood Cells 0 /100 WBC (0-0); Total Cells Counted 100
[2021-04-02 16:44] LABS: Glucose,Whole Blood 217 mg/dL (75-99)
[2021-04-02 21:45] LABS: Glucose,Whole Blood 230 mg/dL (75-99)
[2021-04-02] MEDS: INSULIN DETEMIR (LEVEMIR) 100 UNIT/ML SYR SQ SCH (23:47)
[2021-04-03] MEDS: IPRATROPIUM-ALBUTEROL 3 ML NEB INHALATION PRN
[2021-04-03] MEDS: LEVOTHYROXINE 75 MCG TAB PO SCH (06:07)
[2021-04-03 07:07] LABS: Glucose,Whole Blood 58 mg/dL (75-99)
[2021-04-03 07:29] LABS: Glucose,Whole Blood 84 mg/dL (75-99)
[2021-04-03] MEDS: INSULIN ASPART (NovoLOG) 100 UNIT/ML VIAL SQ SCH ×3 (07:52→17:09)
[2021-04-03] MEDS: DOXYCYCLINE 100 MG CAP PO SCH (08:00)
[2021-04-03] MEDS: HEPARIN SODIUM,PORCINE/PF 5,000 UNIT/0.5 ML SYRINGE SQ SCH (08:00)
[2021-04-03] MEDS: lisinopriL 20 MG TAB PO SCH (08:01)
[2021-04-03] MEDS: METOPROLOL TARTRATE 25 MG TAB PO SCH (08:01)
[2021-04-03] MEDS: predniSONE 20 MG TAB PO SCH (08:01)
[2021-04-03] MEDS: SYMBICORT 160-4.5 MCG INHALER INHALATION SCH (09:21)
[2021-04-03] MEDS: IPRATROPIUM-ALBUTEROL 3 ML NEB INHALATION SCH ×3 (09:22→16:23)
[2021-04-03 09:23] VITALS: BMI 19.5
[2021-04-03 09:48] LABS: Glucose,Whole Blood 164 mg/dL (75-99)
--- NOTE | 2021-04-03 10:09 | P.PN ---
Subjective Progress Note Date: 04/03/21 75 yo female who sees my partner as a primary. The patient has history of severe COPD, hypertension, and hypothyroidism. The patient apparently smoked for many years quite heavily. She apparently quit about 3 months ago according to her. Anyway, she comes to the emergency room complaining of increasing shortness of breath, chest congestion, chest tightness, wheezing, and cough, with minimal phlegm production. The patient is seen in the emergency room, in room 15. She's currently on 2 L. She's not receiving any IV fluids. Her home medications include prednisone 10 mg a day, lisinopril, loratadine, levothyroxine, Symbicort, and DuoNeb. She also takes Tylenol. The patient is currently resting comfortably. She's able to speak in full sentences. She is feeling a bit better today than she did when she first came in. Today's evaluation 03/31/2021 patient seen in follow-up on observation unit, she is resting comfortably in bed, she is currently on 3 L of oxygen, she states her breathing is improving, occasional cough, occasional phlegm production. Afebrile, vital signs have been stable. Patient continues on IV steroids, nebulized bronchodilators, and doxycycline, no acute events overnight. No complaints of chest pain, no hemoptysis, no swelling in bilateral lower extremities. Today's labs have been noted, and red blood cell count is 9.6, hemoglobin is 11.3, serum sodium is 132, potassium is 4.9, BUN is 26, creatinine 0.5, COVID-19 PCR was negative. On today's evaluation on 04/01/2021 patient seen in follow-up on observation unit, she is resting comfortably in bed, she is weak, but appears to be comfortable, no wheezing or rhonchi appreciated on today's exam. No new labs today, no new chest x-ray, vital signs have been stable overnight, no fever or chills, patient has been treated with IV steroids, nebulized bronchodilators. She is on doxycycline for empiric antibiotic coverage. She's had no acute events overnight, increase activity as tolerated, she is close to her baseline, she could probably consider for discharge home today. On today's evaluation on 04/02/2021 patient seen in follow-up on observation unit. Worsening dyspnea, she is currently on 2 L of oxygen pulse ox is 96%, she is afebrile, vital signs have been stable, no acute events overnight, no fever or chills, lung sounds are diminished, no wheezing, no rhonchi. Chest x-ray labs today, patient has been treated with the steroids, nebulized bronchodilators and antibiotics, she is ready for discharge home today. Today's evaluation on 04/03/2021 patient seen in follow-up on medical surgical floor, she is sitting up in the recliner, she is a comfortably, minimal wheezing, no cough, no acute events overnight, she is on 2 L of oxygen pulse ox is 97%, afebrile, does have exertional dyspnea, no acute distress. No new chest x-ray, no new labs. Patient has been transitioned to oral prednisone, she remains on doxycycline, and nebulized bronchodilators, she states she is getting ready to be discharged home today, and she states that she will be going home and she lives with her and her son that are available to assist her with ADLs. Objective - Vital Signs Vital signs: Vital Signs Temp 98.2 F 04/03/21 08:00 Pulse 76 04/03/21 09:31 Resp 18 04/03/21 08:00 BP 161/76 04/03/21 08:00 Pulse Ox 97 04/03/21 08:00 Intake & Output 04/02/21 04/03/21 04/03/21 18:59 06:59 18:59 Intake Total 440 Balance 440 Weight 51.71 kg Intake: Oral 440 Other: Voiding Method Toilet Toilet Toilet # Voids 2 2 # Bowel Movements 0 1 - Exam GENERAL EXAM: Alert, pleasant, 75-year-old frail looking white female, looks older than stated age, currently on 2 L of oxygen, thin built comfortable in no apparent distress. HEAD: Normocephalic/atraumatic. EYES: Normal reaction of pupils, equal size. Conjunctiva pink, sclera white. NOSE: Clear with pink turbinates. THROAT: No erythema or exudates. NECK: No masses, no JVD, no thyroid enlargement, no adenopathy. CHEST: No chest wall deformity. Symmetrical expansion. LUNGS: Diminished breath sounds equal air entry with end expiratory wheezes CVS: Regular rate and rhythm, normal S1 and S2, no gallops, no murmurs, no rubs ABDOMEN: Soft, nontender. No hepatosplenomegaly, normal bowel sounds, no guarding or rigidity. EXTREMITIES: No clubbing, no edema, no cyanosis, 2+ pulses and upper and lower extremities. MUSCULOSKELETAL: Muscle strength and tone normal. SPINE: No scoliosis or deformity SKIN: No rashes CENTRAL NERVOUS SYSTEM: Alert and oriented -3. No focal deficits, tone is normal in all 4 extremities. PSYCHIATRIC: Alert and oriented -3. Appropriate affect. Intact judgment and insight. - Labs CBC & Chem 7: 04/02/21 07:35 04/02/21 07:35 Labs: Abnormal Lab Results - Last 24 Hours (Table) 04/02/21 04/02/21 04/02/21 Range/Units 13:14 16:40 21:42 POC Glucose (mg/dL) 333 H 217 H 230 H (75-99) mg/dL 04/03/21 04/03/21 Range/Units 07:06 09:47 POC Glucose (mg/dL) 58 L 164 H (75-99) mg/dL Microbiology - Last 24 Hours (Table) 03/29/21 17:15 Blood Culture - Preliminary Blood No Growth after 96 hours Assessment and Plan Plan: Assessment: #1. Acute exacerbation of COPD #2. Advanced COPD on home oxygen usually wears 2 L of oxygen at home #3. History of hypertension #4. Former smoker Plan: Vital signs are stable No acute events overnight She is close to her baseline, Patient has been converted to prednisone taper, and she can complete her outpatient course of doxycycline, she can resume her maintenance inhalers and nebulized treatments, she ready has oxygen at home usually wears 2 L Follow-up with Dr. Carlson in the office next week I performed a history & physical examination of the patient and discussed their management with my nurse practitioner, Galina Mar. I reviewed the nurse practitioner's note and agree with the documented findings and plan of care. Lung sounds are positive for diffuse wheezes throughout the lung bauman. The findings and the impression was discussed with the patient. I attest to the documentation by the nurse practitioner. Time with Patient: Less than 30
[2021-04-03 11:27] LABS: Glucose,Whole Blood 189 mg/dL (75-99)
[2021-04-03] MEDS: ALPRAZolam 0.25 MG TAB PO PRN (13:51)
[2021-04-03 14:24] VITALS: BP 179/75; PULSE 63; RESP 17; TEMP 98.8
[2021-04-03 16:38] LABS: Glucose,Whole Blood 263 mg/dL (75-99)
== END 2021-04-03 19:01 | disposition home health service (06) | DRG 191 ==
LOC: EC 16:17 → 6NMEDSUR 18:57 → 1SOBS 03-30 15:23 → OBSVTOIN 03-31 14:38 → 4SSUR 04-02 17:13
PROVIDERS: ADMIT Internal Medicine; ATTEND Internal Medicine
PROC: 3E0F7SF Introduction of Other Gas into Respiratory Tract, Via Natural or Artificial Opening (ICD-10-PCS; principal; 2021-03-31)
DX: J44.1 Chronic obstructive pulmonary disease with (acute) exacerbation (principal); J96.11 Chronic respiratory failure with hypoxia; I31.9 Disease of pericardium, unspecified; E87.1 Hypo-osmolality and hyponatremia; Z20.822 Contact with and (suspected) exposure to COVID-19; I11.0 Hypertensive heart disease with heart failure; I50.9 Heart failure, unspecified; E03.9 Hypothyroidism, unspecified; E11.51 Type 2 diabetes mellitus with diabetic peripheral angiopathy without gangrene; Z87.891 Personal history of nicotine dependence; Z99.81 Dependence on supplemental oxygen; S52.502D Unspecified fracture of the lower end of left radius, subsequent encounter for closed fracture with routine healing; F41.9 Anxiety disorder, unspecified; J40 Bronchitis, not specified as acute or chronic; R11.2 Nausea with vomiting, unspecified; M19.90 Unspecified osteoarthritis, unspecified site; R00.0 Tachycardia, unspecified; E11.65 Type 2 diabetes mellitus with hyperglycemia; R35.0 Frequency of micturition; D64.9 Anemia, unspecified; M10.9 Gout, unspecified; Z74.01 Bed confinement status; Z90.710 Acquired absence of both cervix and uterus; Z96.1 Presence of intraocular lens; Z79.51 Long term (current) use of inhaled steroids; Z79.899 Other long term (current) drug therapy; Z79.890 Hormone replacement therapy; Z88.8 Allergy status to other drugs, medicaments and biological substances; Z88.0 Allergy status to penicillin; Z87.19 Personal history of other diseases of the digestive system; Z98.51 Tubal ligation status; Z79.4 Long term (current) use of insulin
CPT/HCPCS: 36415; 71045; 80048; 80053; 81003; 82009; 83036; 83605; 83735; 83880; 84484; 85025; 85610; 85730; 87040; 87635; 93005; 94640; 94760; 96374; 99285

== ENCOUNTER 2021-04-27 13:43 | Inpatient (IN) | payer MEDICARE, BC ==
[2021-04-27] MEDS ORDERED: IPRATROPIUM-ALBUTEROL 3 ML NEB INHALATION STA (13:53)
[2021-04-27] MEDS ORDERED: methylPREDNISolone SOD SUCCI 125 MG/2 ML VIAL IV STA (13:53)
--- NOTE | 2021-04-27 13:55 | ED ---
General Adult HPI - General Chief complaint: Shortness of Breath Stated complaint: SOB Time Seen by Provider: 04/27/21 13:47 Source: patient, EMS, RN notes reviewed Mode of arrival: EMS Limitations: no limitations - History of Present Illness Initial comments: Patient is a pleasant 75-year-old female presenting to the emergency department with difficulty breathing. Onset of symptoms was a day or 2 ago. Patient does have mild cough with clear sputum. Patient is unclear whether or not she is having fevers. Patient does have history of similar symptoms previously so she with COPD. Patient states she recently just stopped smoking. Patient states she does have some leg edema however that is chronic and unchanged for her. No chest pain. - Related Data Home Medications Medication Instructions Recorded Confirmed Albuterol Sulfate [Proair Hfa] 2 puff INHALATION RT-QID PRN 09/25/20 03/29/21 Loratadine [Claritin] 10 mg PO DAILY 10/23/20 03/29/21 Nystatin 100,000 Unit/ml Susp 5 ml PO QID 03/29/21 03/29/21 [Mycostatin Oral Susp] lisinopriL [Zestril] 20 mg PO BID 03/29/21 03/29/21 Previous Rx's Medication Instructions Recorded Budesonide-Formot 160-4.5 Mcg 2 puff INHALATION RT-BID #1 vial 12/05/18 [Symbicort 160-4.5 Mcg Inhaler] Levothyroxine Sodium [Synthroid] 150 mcg PO DAILY #30 tablet 12/05/18 Acetaminophen Tab [Tylenol] 650 mg PO Q6HR PRN tab 11/14/20 Doxycycline [Vibramycin] 100 mg PO BID #7 cap 04/03/21 INSULIN ASPART (NovoLOG) [NovoLOG 0 unit SQ ACHS ml 04/03/21 (formulary)] Metoprolol Tartrate [Lopressor] 25 mg PO BID #60 tab 04/03/21 metFORMIN HCL ER [Glucophage XR] 500 mg PO AC-BID #60 tab 04/03/21 predniSONE See Taper PO DIRECTED #21 tab 04/03/21 Allergies Allergy/AdvReac Type Severity Reaction Status Date / Time bacitracin Allergy Rash/Hives Verified 04/27/21 13:52 [From Neosporin ([id number])] neomycin Allergy Rash/Hives Verified 04/27/21 13:52 [From Neosporin ([id number])] Penicillins Allergy Rash/Hives Verified 04/27/21 13:52 polymyxin B Allergy Rash/Hives Verified 04/27/21 13:52 [From Neosporin ([id number])] trimethoprim [From Polytrim] Allergy Rash/Hives Verified 04/27/21 13:52 levofloxacin [From Levaquin] AdvReac WEAKNESS Verified 04/27/21 13:52 ELDA/POLY/DEX Allergy Rash/Hives Uncoded 04/27/21 13:52 Review of Systems ROS Statement: Those systems with pertinent positive or pertinent negative responses have been documented in the HPI. ROS Other: All systems not noted in ROS Statement are negative. Constitutional: Reports: as per HPI Eyes: Denies: eye pain ENT: Denies: ear pain Respiratory: Reports: as per HPI, cough, dyspnea Cardiovascular: Denies: chest pain Endocrine: Reports: fatigue Gastrointestinal: Denies: abdominal pain Genitourinary: Denies: dysuria Musculoskeletal: Denies: back pain Skin: Denies: rash Neurological: Denies: weakness Past Medical History Past Medical History: Heart Failure, COPD, Diabetes Mellitus, Hypertension, Osteoarthritis (OA), Respiratory Disorder, Thyroid Disorder, Vascular Disorder Additional Past Medical History / Comment(s): Pt recently admitted to [facility] on 10/23/20 with acute exacerbation chronic COPD, acute on chronic hypoxic hypercarbic respiratory failure, acute purulent tracheobronchitis, possible new onset diabetes, hyponatremia/hypovolemic, hyperkalemia, severe constipation/obstipation. Other hx: Advanced COPD, chronic hypoxic respiratory failure, home oxygen, 2010 pericarditis, former smoker, hypothyroidism, skeletal chest wall pain, chronic anxiety, anemia, PVD, past leg and foot wounds, recent L distal radius fracture/L knee wound sutures since removed, gout, confused at times per spouse and recently has been bedbound. History of Any Multi-Drug Resistant Organisms: None Reported Past Surgical History: Heart Catheterization, Hysterectomy, Tubal Ligation Additional Past Surgical History / Comment(s): 2011 cardiac cath, 2013 cardiac angiogram, colonoscopy/benign polypectomy, anal fistula repair, bilateral cataract removals/lens implants. Past Anesthesia/Blood Transfusion Reactions: Previous Problems w/ Anesthesia, Postoperative Nausea & Vomiting (PONV) Additional Past Anesthesia/Blood Transfusion Reaction / Comment(s): oxygen was "low" post op, nausea one time Past Psychological History: Anxiety Smoking Status: Former smoker Past Alcohol Use History: None Reported Past Drug Use History: None Reported - Past Family History Mother History Unknown: Yes Family Medical History: Cancer, Thyroid Disorder Additional Family Medical History / Comment(s): Liver Cancer Father History Unknown: Yes Family Medical History: Cancer General Exam Limitations: no limitations General appearance: alert, in no apparent distress Head exam: Present: normocephalic Eye exam: Present: normal appearance Neck exam: Present: normal inspection Respiratory exam: Present: wheezes, decreased breath sounds Cardiovascular Exam: Present: regular rate, normal rhythm GI/Abdominal exam: Present: soft. Absent: tenderness Extremities exam: Present: pedal edema (+1 bilateral). Absent: calf tenderness Neurological exam: Present: alert Psychiatric exam: Present: normal affect, normal mood Skin exam: Present: normal color, other (Tobacco stained fingers) Course Vital Signs 04/27/21 04/27/21 04/27/21 13:45 13:53 14:24 Temperature 98.9 F Pulse Rate 71 Respiratory 20 20 Rate Blood Pressure 176/126 O2 Sat by Pulse 89 L 95 Oximetry 04/27/21 04/27/21 04/27/21 14:33 14:35 14:43 Temperature Pulse Rate 88 89 73 Respiratory 20 Rate Blood Pressure 169/85 O2 Sat by Pulse Oximetry EKG Findings - EKG Comments: EKG Findings:: Normal sinus rhythm with rate of 71. [place] 128. QRS 92. QT 360. QTC 391. Right axis. Normal QRS. No acute ST change. Medical Decision Making - Medical Decision Making Patient reevaluated and updated. Case was discussed with Dr. Marc, who will admit For Dr. Griffiths. Case also discussed with Dr. Hicks, who will consult covering for Dr. Sears. - Lab Data Result diagrams: 04/27/21 13:57 04/27/21 13:57 Lab Results 04/27/21 04/27/21 04/27/21 Range/Units 13:57 13:57 13:57 WBC 10.6 (3.8-10.6) k/uL RBC 4.44 (3.80-5.40) m/uL Hgb 12.2 (11.4-16.0) gm/dL Hct 39.6 (34.0-46.0) % MCV 89.3 (80.0-100.0) fL MCH 27.6 (25.0-35.0) pg MCHC 30.9 L (31.0-37.0) g/dL RDW 14.7 (11.5-15.5) % Plt Count 298 (150-450) k/uL MPV 7.8 Neutrophils % 85 % Lymphocytes % 7 % Monocytes % 6 % Eosinophils % 0 % Basophils % 0 % Neutrophils # 9.0 H (1.3-7.7) k/uL Lymphocytes # 0.8 L (1.0-4.8) k/uL Monocytes # 0.6 (0-1.0) k/uL Eosinophils # 0.0 (0-0.7) k/uL Basophils # 0.0 (0-0.2) k/uL Hypochromasia Slight PT 9.4 (9.0-12.0) sec INR 0.8 (<1.2) APTT 19.2 L (22.0-30.0) sec Sodium 124 L (137-145) mmol/L Potassium 5.5 H (3.5-5.1) mmol/L Chloride 80 L (98-107) mmol/L Carbon Dioxide 43 H* (22-30) mmol/L Anion Gap 1 mmol/L BUN 33 H (7-17) mg/dL Creatinine 0.53 (0.52-1.04) mg/dL Est GFR (CKD-EPI)AfAm >90 (>60 ml/min/1.73 sqM) Est GFR (CKD-EPI)NonAf >90 (>60 ml/min/1.73 sqM) Glucose 213 H (74-99) mg/dL Plasma Lactic Acid Lance (0.7-2.0) mmol/L Calcium 9.5 (8.4-10.2) mg/dL Total Bilirubin 0.4 (0.2-1.3) mg/dL AST 20 (14-36) U/L ALT 16 (4-34) U/L Alkaline Phosphatase 53 (38-126) U/L Troponin I (0.000-0.034) ng/mL NT-Pro-B Natriuret Pep pg/mL Total Protein 5.9 L (6.3-8.2) g/dL Albumin 3.2 L (3.5-5.0) g/dL Coronavirus (PCR) (Not Detectd) 04/27/21 04/27/21 04/27/21 Range/Units 13:57 13:57 13:57 WBC (3.8-10.6) k/uL RBC (3.80-5.40) m/uL Hgb (11.4-16.0) gm/dL Hct (34.0-46.0) % MCV (80.0-100.0) fL MCH (25.0-35.0) pg MCHC (31.0-37.0) g/dL RDW (11.5-15.5) % Plt Count (150-450) k/uL MPV Neutrophils % % Lymphocytes % % Monocytes % % Eosinophils % % Basophils % % Neutrophils # (1.3-7.7) k/uL Lymphocytes # (1.0-4.8) k/uL Monocytes # (0-1.0) k/uL Eosinophils # (0-0.7) k/uL Basophils # (0-0.2) k/uL Hypochromasia PT (9.0-12.0) sec INR (<1.2) APTT (22.0-30.0) sec Sodium (137-145) mmol/L Potassium (3.5-5.1) mmol/L Chloride (98-107) mmol/L Carbon Dioxide (22-30) mmol/L Anion Gap mmol/L BUN (7-17) mg/dL Creatinine (0.52-1.04) mg/dL Est GFR (CKD-EPI)AfAm (>60 ml/min/1.73 sqM) Est GFR (CKD-EPI)NonAf (>60 ml/min/1.73 sqM) Glucose (74-99) mg/dL Plasma Lactic Acid Lance 1.3 (0.7-2.0) mmol/L Calcium (8.4-10.2) mg/dL Total Bilirubin (0.2-1.3) mg/dL AST (14-36) U/L ALT (4-34) U/L Alkaline Phosphatase (38-126) U/L Troponin I <0.012 (0.000-0.034) ng/mL NT-Pro-B Natriuret Pep 417 pg/mL Total Protein (6.3-8.2) g/dL Albumin (3.5-5.0) g/dL Coronavirus (PCR) (Not Detectd) 04/27/21 Range/Units 13:57 WBC (3.8-10.6) k/uL RBC (3.80-5.40) m/uL Hgb (11.4-16.0) gm/dL Hct (34.0-46.0) % MCV (80.0-100.0) fL MCH (25.0-35.0) pg MCHC (31.0-37.0) g/dL RDW (11.5-15.5) % Plt Count (150-450) k/uL MPV Neutrophils % % Lymphocytes % % Monocytes % % Eosinophils % % Basophils % % Neutrophils # (1.3-7.7) k/uL Lymphocytes # (1.0-4.8) k/uL Monocytes # (0-1.0) k/uL Eosinophils # (0-0.7) k/uL Basophils # (0-0.2) k/uL Hypochromasia PT (9.0-12.0) sec INR (<1.2) APTT (22.0-30.0) sec Sodium (137-145) mmol/L Potassium (3.5-5.1) mmol/L Chloride (98-107) mmol/L Carbon Dioxide (22-30) mmol/L Anion Gap mmol/L BUN (7-17) mg/dL Creatinine (0.52-1.04) mg/dL Est GFR (CKD-EPI)AfAm (>60 ml/min/1.73 sqM) Est GFR (CKD-EPI)NonAf (>60 ml/min/1.73 sqM) Glucose (74-99) mg/dL Plasma Lactic Acid Lance (0.7-2.0) mmol/L Calcium (8.4-10.2) mg/dL Total Bilirubin (0.2-1.3) mg/dL AST (14-36) U/L ALT (4-34) U/L Alkaline Phosphatase (38-126) U/L Troponin I (0.000-0.034) ng/mL NT-Pro-B Natriuret Pep pg/mL Total Protein (6.3-8.2) g/dL Albumin (3.5-5.0) g/dL Coronavirus (PCR) Not Detected (Not Detectd) - Radiology Data Radiology results: image reviewed (x-ray shows hyperinflation) Disposition Clinical Impression: Acute exacerbation of chronic obstructive airways disease, Hyponatremia Disposition: ADMITTED IP TO THIS [facility] Condition: Serious Is patient prescribed a controlled substance at d/c from ED?: No Referrals: Chris Sears MD [Primary Care Provider] - 1-2 days Decision Time: 15:23
[2021-04-27 14:25] LABS: INR 0.8 (<1.2); Prothrombin Time 9.4 sec (9.0-12.0)
[2021-04-27 14:26] LABS: ALT 16 U/L (4-34); AST 20 U/L (14-36); African American GFR (CKD) >90 (>60 ml/min/1.73 sqM); Albumin 3.2 g/dL (3.5-5.0); Alkaline Phosphatase 53 U/L (38-126); Blood Urea Nitrogen 33 mg/dL (7-17); Calcium 9.5 mg/dL (8.4-10.2); Chloride 80 mmol/L (98-107); Glucose 213 mg/dL (74-99); Non-African American GFR(CKD) >90 (>60 ml/min/1.73 sqM); Potassium 5.5 mmol/L (3.5-5.1); Sodium 124 mmol/L (137-145); Total Bilirubin 0.4 mg/dL (0.2-1.3); Total Protein 5.9 g/dL (6.3-8.2)
[2021-04-27 14:32] LABS: Anion Gap 1 mmol/L
[2021-04-27 14:33] LABS: Basophils % (A) 0 %; Eosinophils % (A) 0 %; HCT 39.6 % (34.0-46.0); HGB 12.2 gm/dL (11.4-16.0); Hypochromasia Slight; Lymphocytes # (A) 0.8 k/uL (1.0-4.8); Lymphocytes % (A) 7 %; MCH 27.6 pg (25.0-35.0); MCHC 30.9 g/dL (31.0-37.0); MCV 89.3 fL (80.0-100.0); Mean Platelet Volume 7.8; Monocytes # (A) 0.6 k/uL (0-1.0); Monocytes % (A) 6 %; Neutrophils % (A) 85 %; Platelet Count 298 k/uL (150-450); RBC 4.44 m/uL (3.80-5.40); RDW 14.7 % (11.5-15.5); WBC 10.6 k/uL (3.8-10.6)
[2021-04-27 14:34] LABS: Carbon Dioxide 43 mmol/L (22-30)
--- NOTE | 2021-04-27 14:36 | XR ---
EXAMINATION TYPE: XR chest 2V DATE OF EXAM: 04/27/2021 COMPARISON: Chest x-ray March 29, 2021 HISTORY: History of COPD with shortness of breath TECHNIQUE: Frontal and lateral views of the chest are obtained. FINDINGS: There is chronic emphysematous change without suspicious focal air space opacity, pleural effusion, or pneumothorax seen. The cardiac silhouette size is stable and mildly enlarged with ather osclerotic change aortic knob. The osseous structures are demineralized. Underlying Scoliosis is p resent. IMPRESSION: Chronic emphysematous change without acute pulmonary process.
[2021-04-27 14:37] LABS: Partial Thromboplastin Time 19.2 sec (22.0-30.0)
--- NOTE | 2021-04-27 15:00 | P.CNPUL ---
History of Present Illness Consult date: 04/27/21 Requesting physician: Reza Joy Reason for consult: dyspnea, cough Chief complaint: dyspnea, cough History of present illness: 75-year-old white female patient with past medical history of advanced COPD, on home oxygen, normally wears 4 L of oxygen, baseline FEV1 of 28% of predicted, stage IV COPD, long history of smoking, currently in remission, hypertension, osteoarthritis, hypothyroidism, anxiety, was recently hospitalized for acute exacerbation of COPD in March. Following her hospitalization patient states she was discharged home. She came into the emergency department on 04/27/2021 for evaluation of shortness of breath, she was brought in by ambulance. Patient has had worsening dyspnea for the last 2 days, she reports mild cough with clear sputum production. No chest pain, she reports fevers. She recently just stopped smoking. She is currently on 3 L of oxygen, her pulse ox is 95%, she is afebrile, hemodynamically she is stable. Lung sounds are very diminished bilat erally, patient overall appears to be very fatigued, but does not appear to be in any acute distress. Chest x-ray film has been reviewed, possibly mild pulmonary vascular prominence, and tiny right pleural effusion/or atelectasis. Patient has been given Solu-Medrol 125 mg 1, and was given nebulized treatment. She still being worked up in the emergency department. Admission blood work is still pending. Review of Systems All systems: negative Constitutional: Reports weakness, Denies chills, Denies fever Eyes: denies blurred vision, denies pain Ears, nose, mouth and throat: Denies headache, Denies sore throat Cardiovascular: Denies chest pain, Denies shortness of breath Respiratory: Reports cough with sputum, Reports dyspnea, Reports home oxygen, Reports respiratory infections, Denies cough Gastrointestinal: Denies abdominal pain, Denies diarrhea, Denies nausea, Denies vomiting Genitourinary: Denies dysuria, Denies hematuria Musculoskeletal: Denies myalgias Integumentary: Denies pruritus, Denies rash Neurological: Denies numbness, Denies weakness Psychiatric: Denies anxiety, Denies depression Endocrine: Denies fatigue, Denies weight change Past Medical History Past Medical History: Heart Failure, COPD, Diabetes Mellitus, Hypertension, Osteoarthritis (OA), Respiratory Disorder, Thyroid Disorder, Vascular Disorder Additional Past Medical History / Comment(s): Alhaji hx: Advanced COPD, chronic hypoxic respiratory failure, home oxygen, 2010 pericarditis, former smoker, hypothyroidism, skeletal chest wall pain, chronic anxiety, anemia, PVD, past leg and foot wounds, recent L distal radius fracture/L knee wound sutures since removed, gout, confused at times per spouse and recently has been bedbound. History of Any Multi-Drug Resistant Organisms: None Reported Past Surgical History: Heart Catheterization, Hysterectomy, Tubal Ligation Additional Past Surgical History / Comment(s): 2011 cardiac cath, 2013 cardiac angiogram, colonoscopy/benign polypectomy, anal fistula repair, bilateral cat aract removals/lens implants. Past Anesthesia/Blood Transfusion Reactions: Previous Problems w/ Anesthesia, Postoperative Nausea & Vomiting (PONV) Additional Past Anesthesia/Blood Transfusion Reaction / Comment(s): oxygen was "low" post op, nausea one time Past Psychological History: Anxiety Smoking Status: Former smoker Past Alcohol Use History: None Reported Past Drug Use History: None Reported - Past Family History Mother History Unknown: Yes Family Medical History: Cancer, Thyroid Disorder Additional Family Medical History / Comment(s): Liver Cancer Father History Unknown: Yes Family Medical History: Cancer Medications and Allergies Home Medications Medication Instructions Recorded Confirmed Type Budesonide-Formot 160-4.5 Mcg 2 puff INHALATION RT-BID #1 vial 12/05/18 03/29/21 Rx [Symbicort 160-4.5 Mcg Inhaler] Levothyroxine Sodium [Synthroid] 150 mcg PO DAILY #30 tablet 12/05/18 03/29/21 Rx Albuterol Sulfate [Proair Hfa] 2 puff INHALATION RT-QID PRN 09/25/20 03/29/21 History Loratadine [Claritin] 10 mg PO DAILY 10/23/20 03/29/21 History Acetaminophen Tab [Tylenol] 650 mg PO Q6HR PRN tab 11/14/20 03/29/21 Rx Nystatin 100,000 Unit/ml Susp 5 ml PO QID 03/29/21 03/29/21 History [Mycostatin Oral Susp] lisinopriL [Zestril] 20 mg PO BID 03/29/21 03/29/21 History Doxycycline [Vibramycin] 100 mg PO BID #7 cap 04/03/21 Rx INSULIN ASPART (NovoLOG) [NovoLOG 0 unit SQ ACHS ml 04/03/21 Rx (formulary)] Metoprolol Tartrate [Lopressor] 25 mg PO BID #60 tab 04/03/21 Rx metFORMIN HCL ER [Glucophage XR] 500 mg PO AC-BID #60 tab 04/03/21 Rx predniSONE See Taper PO DIRECTED #21 tab 04/03/21 Rx Allergies Allergy/AdvReac Type Severity Reaction Status Date / Time bacitracin Allergy Rash/Hives Verified 04/27/21 13:52 [From Neosporin ([id number])] neomycin Allergy Rash/Hives Verified 04/27/21 13:52 [From Neosporin ([id number])] Penicillins Allergy Rash/Hives Verified 04/27/21 13:52 polymyxin B Allergy Rash/Hives Verified 04/27/21 13:52 [From Neosporin ([id number])] trimethoprim [From Polytrim] Allergy Rash/Hives Verified 04/27/21 13:52 levofloxacin [From Levaquin] AdvReac WEAKNESS Verified 04/27/21 13:52 ELDA/POLY/DEX Allergy Rash/Hives Uncoded 04/27/21 13:52 Physical Exam Vitals: Vital Signs Temp Pulse Resp BP Pulse Ox 04/27/21 14:35 89 20 169/85 04/27/21 14:33 88 04/27/21 14:24 20 04/27/21 13:53 95 04/27/21 13:45 98.9 F 71 20 176/126 89 L Intake and Output 04/26/21 04/27/21 04/27/21 22:59 06:59 14:59 Other: Weight 58.967 kg GENERAL EXAM: Alert, pleasant, 75-year-old frail looking white female, looks older than stated age, currently on 2 L of oxygen, thin built comfortable in no apparent distress. Appears somewhat disheveled and poorly kept, with spilled food and drink stains on clothes HEAD: Normocephalic/atraumatic. EYES: Normal reaction of pupils, equal size. Conjunctiva pink, sclera white. NOSE: Clear with pink turbinates. THROAT: No erythema or exudates. NECK: No masses, no JVD, no thyroid enlargement, no adenopathy. CHEST: No chest wall deformity. Symmetrical expansion. LUNGS: Diminished breath sounds equal air entry with end expiratory wheezes CVS: Regular rate and rhythm, normal S1 and S2, no gallops, no murmurs, no rubs ABDOMEN: Soft, nontender. No hepatosplenomegaly, normal bowel sounds, no guarding or rigidity. EXTREMITIES: No clubbing, no edema, no cyanosis, 2+ pulses and upper and lower extremities. MUSCULOSKELETAL: Muscle strength and tone normal. SPINE: No scoliosis or deformity SKIN: No rashes CENTRAL NERVOUS SYSTEM: Alert and oriented -3. No focal deficits, tone is normal in all 4 extremities. PSYCHIATRIC: Alert and oriented -3. Appropriate affect. Intact judgment and insight. Results - Laboratory Findings CBC and BMP: 04/27/21 13:57 04/27/21 13:57 ABG Plasma Lactic Acid Lance 1.3 mmol/L (0.7-2.0) 04/27/21 13:57 PT/INR, D-dimer PT 9.4 sec (9.0-12.0) 04/27/21 13:57 INR 0.8 (<1.2) 04/27/21 13:57 Abnormal lab findings: Abnormal Labs 04/27/21 04/27/21 04/27/21 13:57 13:57 13:57 MCHC 30.9 L Neutrophils # 9.0 H Lymphocytes # 0.8 L APTT 19.2 L Sodium 124 L Potassium 5.5 H Chloride 80 L Carbon Dioxide 43 H* BUN 33 H Glucose 213 H Total Protein 5.9 L Albumin 3.2 L - Diagnostic Findings Chest x-ray: image reviewed Assessment and Plan Plan: #1. Acute exacerbation of COPD. COVID 19 PCR pending, CXR shows mild pulm vascular prominence, possible tiny right pleural effusion or atelectasis #2. Recent hospital #2. The patient has advanced and end-stage COPD with chronic hypoxemic and hypercapnic respiratory failure related to advanced COPD, stage IV, with baseline FEV1 of 28% of predicted, oxygen at 4 L of O2 by nasal cannula. #3. Chronic nicotine dependence, just recently quit #4. Hypertension #5. Osteoarthritis #6. Hypothyroidism #7. Anxiety #8. Frequent falls #9. History of fracture in the left upper extremity #10. multiple areas of skin laceration largest in the left upper lower extremity Plan: We'll continue IV Solu-Medrol 60 mg every 6 hours Nebulized bronchodilators, Pulmicort, Perforomist, DuoNeb We'll resume home medications Awaiting labs, CXR report, COVID 19 PCR Further recommendation to follow I performed a history & physical examination of the patient and discussed their management with my nurse practitioner, Galina Mar. I reviewed the nurse practitioner's note and agree with the documented findings and plan of care. Lung sounds are positive for diminished breath sound throughout the lung bauman. The findings and the impression was discussed with the patient. I attest to the documentation by the nurse practitioner. Time with Patient: Greater than 30
[2021-04-27] MEDS: SODIUM CHLORIDE 0.9% 1,000 ML IV SCH (15:38)
[2021-04-27] MEDS ORDERED: SYMBICORT 160-4.5 MCG INHALER INHALATION STA (16:35)
[2021-04-27 18:10] LABS: Glucose,Whole Blood 331 mg/dL (75-99)
[2021-04-27] MEDS: methylPREDNISolone SOD SUCCI 125 MG/2 ML VIAL IV SCH (18:30)
[2021-04-27] MEDS: INSULIN ASPART (NovoLOG) 100 UNIT/ML VIAL SQ SCH ×2 (18:30→22:13)
[2021-04-27] MEDS: IPRATROPIUM-ALBUTEROL 3 ML NEB INHALATION SCH ×2 (19:31→20:40)
[2021-04-27] MEDS ORDERED: FORMOTEROL FUMARATE 20 MCG/2 ML NEBU INHALATION SCH (20:00)
[2021-04-27] MEDS ORDERED: BUDESONIDE 1 MG/2 ML NEBU INHALATION SCH (20:00)
[2021-04-27] MEDS: SYMBICORT 160-4.5 MCG INHALER INHALATION SCH (20:41)
[2021-04-27 21:48] LABS: Glucose,Whole Blood 217 mg/dL (75-99)
[2021-04-27] MEDS: lisinopriL 20 MG TAB PO SCH (22:13)
[2021-04-27] MEDS: METOPROLOL TARTRATE 25 MG TAB PO SCH (22:13)
[2021-04-28] MEDS: IPRATROPIUM-ALBUTEROL 3 ML NEB INHALATION PRN (00:51)
[2021-04-28] MEDS: methylPREDNISolone SOD SUCCI 125 MG/2 ML VIAL IV SCH ×5 (06:46→23:44)
[2021-04-28 07:11] LABS: African American GFR (CKD) >90 (>60 ml/min/1.73 sqM); Blood Urea Nitrogen 32 mg/dL (7-17); Calcium 9.5 mg/dL (8.4-10.2); Chloride 82 mmol/L (98-107); Glucose 163 mg/dL (74-99); Non-African American GFR(CKD) >90 (>60 ml/min/1.73 sqM); Sodium 124 mmol/L (137-145)
[2021-04-28 07:17] LABS: Anion Gap 0 mmol/L
[2021-04-28 07:18] LABS: Carbon Dioxide 42 mmol/L (22-30)
[2021-04-28 07:58] LABS: Glucose,Whole Blood 177 mg/dL (75-99)
[2021-04-28] MEDS: SODIUM CHLORIDE 0.9% 1,000 ML IV SCH (08:01)
[2021-04-28] MEDS: lisinopriL 20 MG TAB PO SCH ×2 (08:02→22:00)
[2021-04-28] MEDS: INSULIN ASPART (NovoLOG) 100 UNIT/ML VIAL SQ SCH ×4 (08:02→22:00)
[2021-04-28] MEDS: LEVOTHYROXINE 75 MCG TAB PO SCH (08:02)
[2021-04-28] MEDS: METOPROLOL TARTRATE 25 MG TAB PO SCH ×2 (08:03→22:00)
[2021-04-28] MEDS: LORATADINE 10 MG TAB PO SCH (08:03)
[2021-04-28] MEDS: IPRATROPIUM-ALBUTEROL 3 ML NEB INHALATION SCH ×4 (08:06→20:20)
[2021-04-28] MEDS: SYMBICORT 160-4.5 MCG INHALER INHALATION SCH (08:06)
--- NOTE | 2021-04-28 11:38 | P.PN ---
Subjective Progress Note Date: 04/28/21 75-year-old white female patient with past medical history of advanced COPD, on home oxygen, normally wears 4 L of oxygen, baseline FEV1 of 28% of predicted, stage IV COPD, long history of smoking, currently in remission, hypertension, osteoarthritis, hypothyroidism, anxiety, was recently hospitalized for acute exacerbation of COPD in March. Following her hospitalization patient states she was discharged home. She came into the emergency department on 04/27/2021 for evaluation of shortness of breath, she was brought in by ambulance. Patient has had worsening dyspnea for the last 2 days, she reports mild cough with clear sputum production. No chest pain, she reports fevers. She recently just stopped smoking. She is currently on 3 L of oxygen, her pulse ox is 95%, she is afebrile, hemodynamically she is stable. Lung sounds are very diminished bilaterally, patient overall appears to be very fatigued, but does not appear to be in any acute distress. Chest x-ray film has been reviewed, possibly mild pulmonary vascular prominence, and tiny right pleural effusion/or atelectasis. Patient has been given Solu-Medrol 125 mg 1, and was given nebulized treatment. She still being worked up in the emergency department. Admission blood work is still pending. On today's evaluation, the patient is being seen for a follow-up on the observation unit. She is essentially the same as yesterday. She is quite short of breath even at rest. She is actively bronchospastic and wheezy and she has marked breath sounds diminished in the lung bases bilaterally. Note that her COPD is advanced. She almost has an end-stage COPD with an FEV1 of 20% of predicted and she is on oxygen at 4 L at home. She is currently on a combination of bronchodilators and steroids. Blood work shows a sodium level of 124 and a serum bicarbonate of 42 with a BUN of 32 and a creatinine of 0.4. COCIV 19 testing was negative. Objective - Vital Signs Vital signs: Vital Signs Temp 98.4 F 04/28/21 07:59 Pulse 84 04/28/21 11:25 Resp 16 04/28/21 08:00 BP 158/81 04/28/21 07:59 Pulse Ox 95 04/28/21 07:59 Intake & Output 11/08/21 11/09/21 11/09/21 18:59 06:59 18:59 Intake Total 240 Balance 240 Weight 58.967 kg Intake: Oral 240 Other: Voiding Method Diaper Incontinent - Exam GENERAL EXAM: Alert, pleasant, 75-year-old frail looking white female, looks older than stated age, currently on 4 L of oxygen, thin built comfortable in no apparent distress. Appears somewhat disheveled and poorly kept, with spilled food and drink stains on clothes HEAD: Normocephalic/atraumatic. EYES: Normal reaction of pupils, equal size. Conjunctiva pink, sclera white. NOSE: Clear with pink turbinates. THROAT: No erythema or exudates. NECK: No masses, no JVD, no thyroid enlargement, no adenopathy. CHEST: No chest wall deformity. Symmetrical expansion. LUNGS: Diminished breath sounds equal air entry with end expiratory wheezes CVS: Regular rate and rhythm, normal S1 and S2, no gallops, no murmurs, no rubs ABDOMEN: Soft, nontender. No hepatosplenomegaly, normal bowel sounds, no guarding or rigidity. EXTREMITIES: No clubbing, no edema, no cyanosis, 2+ pulses and upper and lower extremities. MUSCULOSKELETAL: Muscle strength and tone normal. SPINE: No scoliosis or deformity SKIN: No rashes CENTRAL NERVOUS SYSTEM: Alert and oriented -3. No focal deficits, tone is normal in all 4 extremities. PSYCHIATRIC: Alert and oriented -3. Appropriate affect. Intact judgment and insight. - Labs CBC & Chem 7: 04/27/21 13:57 04/28/21 06:40 Labs: Abnormal Lab Results - Last 24 Hours (Table) 04/27/21 04/27/21 04/27/21 Range/Units 13:57 13:57 13:57 MCHC 30.9 L (31.0-37.0) g/dL Neutrophils # 9.0 H (1.3-7.7) k/uL Lymphocytes # 0.8 L (1.0-4.8) k/uL APTT 19.2 L (22.0-30.0) sec Sodium 124 L (137-145) mmol/L Potassium 5.5 H (3.5-5.1) mmol/L Chloride 80 L (98-107) mmol/L Carbon Dioxide 43 H* (22-30) mmol/L BUN 33 H (7-17) mg/dL Creatinine (0.52-1.04) mg/dL Glucose 213 H (74-99) mg/dL POC Glucose (mg/dL) (75-99) mg/dL Total Protein 5.9 L (6.3-8.2) g/dL Albumin 3.2 L (3.5-5.0) g/dL Procalcitonin (0.02-0.09) ng/mL 04/27/21 04/27/21 04/27/21 Range/Units 13:57 18:07 21:44 MCHC (31.0-37.0) g/dL Neutrophils # (1.3-7.7) k/uL Lymphocytes # (1.0-4.8) k/uL APTT (22.0-30.0) sec Sodium (137-145) mmol/L Potassium (3.5-5.1) mmol/L Chloride (98-107) mmol/L Carbon Dioxide (22-30) mmol/L BUN (7-17) mg/dL Creatinine (0.52-1.04) mg/dL Glucose (74-99) mg/dL POC Glucose (mg/dL) 331 H 217 H (75-99) mg/dL Total Protein (6.3-8.2) g/dL Albumin (3.5-5.0) g/dL Procalcitonin 0.15 H (0.02-0.09) ng/mL 04/28/21 04/28/21 Range/Units 06:40 07:52 MCHC (31.0-37.0) g/dL Neutrophils # (1.3-7.7) k/uL Lymphocytes # (1.0-4.8) k/uL APTT (22.0-30.0) sec Sodium 124 L (137-145) mmol/L Potassium (3.5-5.1) mmol/L Chloride 82 L (98-107) mmol/L Carbon Dioxide 42 H* (22-30) mmol/L BUN 32 H (7-17) mg/dL Creatinine 0.44 L (0.52-1.04) mg/dL Glucose 163 H (74-99) mg/dL POC Glucose (mg/dL) 177 H (75-99) mg/dL Total Protein (6.3-8.2) g/dL Albumin (3.5-5.0) g/dL Procalcitonin (0.02-0.09) ng/mL Assessment and Plan Plan: #1. Acute exacerbation of COPD. COVID 19 PCR pending, CXR shows mild pulm vascular prominence, possible tiny right pleural effusion or atelectasis #2. Hyponatremia, sodium level is stable at 124 and currently she is receiving IV fluids with normal saline at the rate of 75 mL an hour. #2. The patient has advanced and end-stage COPD with chronic hypoxemic and hypercapnic respiratory failure related to advanced COPD, stage IV, with baseline FEV1 of 28% of predicted, oxygen at 4 L of O2 by nasal cannula. #3. Chronic nicotine dependence, just recently quit #4. Hypertension #5. Osteoarthritis #6. Hypothyroidism #7. Anxiety #8. Frequent falls #9. History of fracture in the left upper extremity #10. multiple areas of skin laceration largest in the left upper lower extremity Plan: Commended restricting IV fluids for stopping the normal saline and advancing her oral intake including salt intake and will monitor the sodium level The patient COPD is advanced and its and stage. She is quite short of breath and lethargic. She is not showing any signs of CO2 narcosis. We'll continue the same treatment for now. No much progress since yesterday. We'll continue IV Solu-Medrol 60 mg every 6 hours Nebulized bronchodilators, Pulmicort, Perforomist, DuoNeb We'll resume home medications COVID 19 PCR was negative Add Mucinex DM twice a day Add heparin subcu for DVT prophylaxis Provide the patient incentive spirometer Further recommendation to follow
[2021-04-28 12:05] LABS: Glucose,Whole Blood 114 mg/dL (75-99)
[2021-04-28] MEDS: HEPARIN SODIUM,PORCINE/PF 5,000 UNIT/0.5 ML SYRINGE SQ SCH ×2 (12:59→22:00)
[2021-04-28] MEDS: guaiFENesin-DM 600/30MG 1 EACH TAB.ER.12H PO SCH ×2 (12:59→22:00)
[2021-04-28] MEDS ORDERED: ACETAMINOPHEN TAB 500 MG TAB PO PRN (15:09)
[2021-04-28 16:09] LABS: Glucose,Whole Blood 231 mg/dL (75-99)
--- NOTE | 2021-04-28 16:11 | HP ---
HISTORY AND PHYSICAL DATE OF SERVICE: 04/28/2021 CHIEF COMPLAINT: Shortness of breath. HISTORY OF PRESENT ILLNESS: This 75-year-old woman with a past medical history of CHF, COPD, diabetes mellitus, depression, hypertension, hypothyroidism, vascular disorder, being followed by Dr. Sears in the outpatient setting, was complaining of difficulty in breathing which lasted about 2 days since onset. The patient is confused. The patient also had some mild cough with clear sputum. Patient also has some abnormal movements, confined mostly to the head and upper limbs. The patient was found to have hypoxic hypercarbic respiratory failure. The patient also had some hyponatremia. Procalcitonin was elevated. A chest x-ray was done which was personally evaluated by me. It showed evidence of some increased bronchovascular markings, no evidence of any definite pneumonia. Dr. Hicks has seen the patient from Pulmonary and thought that the patient has COPD, acute exacerbation. The patient also had a small tiny right pleural effusion and some atelectasis also. The COVID-19 final PCR is pending at this time. The patient also has hyponatremia. IV fluids have been discontinued at this time. The patient is unable to give a coherent history. Most of the history is taken from my discussion with staff and review of the chart at this time. The procalcitonin is elevated and patient will be started on some antibiotic at this time. Home medication will be continued. The patient is started on IV steroids also. There is no history of any fever, rigor or chills. PAST MEDICAL HISTORY: History of COPD, history of diabetes mellitus, history of CHF, COPD, hypertension, DJD, history of , hypothyroidism. HOME MEDICATIONS: Prednisone 5 mg and 10 mg alternately, Glucophage, Zestril, nystatin, Lopressor, Claritin, Synthroid, NovoLog, Symbicort, albuterol, Tylenol. Doses are reviewed. ALLERGIES: BACITRACIN, NEOMYCIN, PENICILLIN, POLYMYXIN, LEVAQUIN. SOCIAL HISTORY: Previous history of smoking, continued smoking. FAMILY HISTORY: History of cancer, thyroid disorder and liver cancer. REVIEW OF SYSTEMS: Review of systems could not be taken; the patient is confused. PHYSICAL EXAMINATION: Pulse is 67, blood pressure 131/74, respiration 18, temperature 98.6, pulse ox 94% on 4 L. HEENT: Conjunctivae normal. NECK: No jugular venous distention. CARDIOVASCULAR: S1, S2 muffled. RESPIRATION: Breath sounds diminished at the bases. A few scattered rhonchi and crackles. ABDOMEN: Soft, nontender. No mass palpable. LEGS: No edema. No swelling. NERVOUS SYSTEM: Higher functions as mentioned earlier. Moves all 4 limbs. No focal motor or sensory deficit. LYMPHATICS: No lymph node palpable in neck, axillae or groin. SKIN: No ulcer, rash, bleeding. JOINTS: No active deforming arthropathy. LABS: CBC within normal limits and sodium ntd, potassium 5.5. CO2 is 43. ASSESSMENT: 1. Chronic obstructive pulmonary disease, acute exacerbation, with acute hypoxic hypercarbic respiratory failure with acute purulent tracheobronchitis. 2. Change in mental status, acute metabolic encephalopathy, multifactorial. 3. Hyponatremia. 4. Hyperkalemia. 5. Diabetes mellitus, type 2. 6. Elevated serum procalcitonin. 7. History of congestive heart failure with no acute exacerbation. 8. Diabetes mellitus, type 2. 9. Hypertension. 10.Degenerative joint disease. 11.Hypothyroidism. 12.New-onset diabetes mellitus, type 2, recently. 13.Severe constipation, obstipation. 14.Chronic hypoxic respiratory failure. RECOMMENDATIONS AND DISCUSSION: In this 75-year-old woman who presented with multiple complex medical issues, we will monitor the patient closely. Will optimize the bronchodilator treatment, empiric antibiotics. Will initiate steroids, monitor closely. Symptomatic treatment. Resume the home medications. I would also recommend a CT scan of the head to complete the workup because the change in mental status has not improved significantly to rule out the possibility of any stroke or any associated intracranial abnormalities. Otherwise, closely follow with Pulmonary. Prognosis guarded because of multiple complex medical issues. See orders for further details. Further recommendations to follow. Smoking cessation has been strongly recommended. A copy of this dictation is being forwarded to Dr. Sears, who is the primary physician. MMODL / IJN: [id number] / MTDFrancine
[2021-04-28] MEDS: metFORMIN 500 MG TAB PO SCH (16:29)
[2021-04-28] MEDS: PANTOPRAZOLE 40 MG TABLET PO SCH (16:46)
[2021-04-28] MEDS: NYSTATIN 100,000 UNIT/ML SUSP 500,000 UNIT/5 ML CUP PO SCH ×2 (16:46→22:00)
[2021-04-28] MEDS: NICOTINE 14MG/24HR PATCH TRANSDERM SCH ×2 (16:47→16:52)
--- NOTE | 2021-04-28 17:30 | CT ---
EXAMINATION TYPE: CT brain wo con DATE OF EXAM: 04/28/2021 COMPARISON: 11/14/2020 HISTORY: ams CT DLP: 1188.4 mGycm Automated exposure control for dose reduction was used. Ventricles have normal size. There is no mass effect nor midline shift. There is no sign of intracran ial hemorrhage. There is mild cerebral atrophy. Calvarium is intact. Skull base is intact. IMPRESSION: Mild atrophy. No acute intracranial abnormality. Mild maxillary sinusitis noted unchanged.
[2021-04-28] MEDS: BUDESONIDE 1 MG/2 ML NEBU INHALATION SCH (20:20)
[2021-04-28] MEDS: FORMOTEROL FUMARATE 20 MCG/2 ML NEBU INHALATION SCH (20:36)
[2021-04-28 20:57] LABS: Glucose,Whole Blood 236 mg/dL (75-99)
[2021-04-29] MEDS: IPRATROPIUM-ALBUTEROL 3 ML NEB INHALATION PRN (04:14)
[2021-04-29] MEDS: LEVOTHYROXINE 75 MCG TAB PO SCH (05:42)
[2021-04-29] MEDS: methylPREDNISolone SOD SUCCI 125 MG/2 ML VIAL IV SCH ×3 (05:42→17:05)
[2021-04-29] MEDS: HEPARIN SODIUM,PORCINE/PF 5,000 UNIT/0.5 ML SYRINGE SQ SCH ×2 (07:31→21:00)
[2021-04-29] MEDS: NYSTATIN 100,000 UNIT/ML SUSP 500,000 UNIT/5 ML CUP PO SCH ×4 (07:32→21:00)
[2021-04-29] MEDS: INSULIN ASPART (NovoLOG) 100 UNIT/ML VIAL SQ SCH ×4 (07:32→20:59)
[2021-04-29] MEDS: metFORMIN 500 MG TAB PO SCH ×2 (07:33→17:06)
[2021-04-29] MEDS: guaiFENesin-DM 600/30MG 1 EACH TAB.ER.12H PO SCH ×2 (07:33→21:00)
[2021-04-29] MEDS: METOPROLOL TARTRATE 25 MG TAB PO SCH ×2 (07:33→21:00)
[2021-04-29] MEDS: PANTOPRAZOLE 40 MG TABLET PO SCH (07:33)
[2021-04-29] MEDS: LORATADINE 10 MG TAB PO SCH (07:34)
[2021-04-29] MEDS: NICOTINE 14MG/24HR PATCH TRANSDERM SCH (07:34)
[2021-04-29] MEDS: BUDESONIDE 1 MG/2 ML NEBU INHALATION SCH ×2 (07:47→19:43)
[2021-04-29] MEDS: IPRATROPIUM-ALBUTEROL 3 ML NEB INHALATION SCH ×4 (07:47→19:43)
[2021-04-29] MEDS: FORMOTEROL FUMARATE 20 MCG/2 ML NEBU INHALATION SCH ×2 (07:48→19:44)
[2021-04-29] MEDS: lisinopriL 20 MG TAB PO SCH ×2 (09:12→21:00)
[2021-04-29 09:34] LABS: Basophils # (A) 0.02 X 10*3/uL (0.00-0.10); Basophils % (A) 0.1 %; Eosinophils # (A) 0 X 10*3/uL (0.04-0.35); Eosinophils % (A) 0 %; HCT 36.1 % (37.2-46.3); Lymphocytes # (A) 0.18 X 10*3/uL (0.90-5.00); Lymphocytes % (A) 1.3 %; MCH 27.7 pg (27.0-32.0); MCHC 30.5 g/dL (32.0-37.0); MCV 90.9 fL (80.0-97.0); Mean Platelet Volume 10.1 fL (9.5-12.2); Monocytes # (A) 0.49 X 10*3/uL (0.20-1.00); Monocytes % (A) 3.6 %; Neutrophils # (A) 12.82 X 10*3/uL (1.80-7.70); Neutrophils % (A) 94.3 %; Platelet Count 258 X 10*3/uL (140-440); RBC 3.97 X 10*6/uL (4.10-5.20); RDW 14.1 % (11.5-14.5); WBC 13.61 X 10*3/uL (4.50-10.00)
[2021-04-29 11:30] LABS: Glucose,Whole Blood 125 mg/dL (75-99)
[2021-04-29 12:36] LABS: African American GFR (CKD) 101.9 (60.0-200.0); BUN/Creat Ratio 60.33 Ratio (12.00-20.00); Blood Urea Nitrogen 36.2 mg/dL (9.0-27.0); Calcium 9.1 mg/dL (8.7-10.3); Non-African American GFR(CKD) 87.9 (60.0-200.0); Potassium 5.6 mmol/L (3.5-5.5)
[2021-04-29] MEDS: MULTIVITAMINS, THERA 1 EACH TAB PO SCH (12:56)
[2021-04-29] MEDS: THIAMINE 100 MG TAB PO SCH (12:56)
[2021-04-29] MEDS: FOLIC ACID 1 MG TAB PO SCH (12:56)
--- NOTE | 2021-04-29 13:21 | P.PN ---
Subjective Progress Note Date: 04/29/21 75-year-old white female patient with past medical history of advanced COPD, on home oxygen, normally wears 4 L of oxygen, baseline FEV1 of 28% of predicted, stage IV COPD, long history of smoking, currently in remission, hypertension, osteoarthritis, hypothyroidism, anxiety, was recently hospitalized for acute exacerbation of COPD in March. Following her hospitalization patient states she was discharged home. She came into the emergency department on 04/27/2021 for evaluation of shortness of breath, she was brought in by ambulance. Patient has had worsening dyspnea for the last 2 days, she reports mild cough with clear sputum production. No chest pain, she reports fevers. She recently just stopped smoking. She is currently on 3 L of oxygen, her pulse ox is 95%, she is afebrile, hemodynamically she is stable. Lung sounds are very diminished bilaterally, patient overall appears to be very fatigued, but does not appear to be in any acute distress. Chest x-ray film has been reviewed, possibly mild pulmonary vascular prominence, and tiny right pleural effusion/or atelectasis. Patient has been given Solu-Medrol 125 mg 1, and was given nebulized treatment. She still being worked up in the emergency department. Admission blood work is still pending. On today's evaluation, the patient is being seen for a follow-up on the observation unit. She is essentially the same as yesterday. She is quite short of breath even at rest. She is actively bronchospastic and wheezy and she has marked breath sounds diminished in the lung bases bilaterally. Note that her COPD is advanced. She almost has an end-stage COPD with an FEV1 of 20% of predicted and she is on oxygen at 4 L at home. She is currently on a combination of bronchodilators and steroids. Blood work shows a sodium level of 124 and a serum bicarbonate of 42 with a BUN of 32 and a creatinine of 0.4. COCIV 19 testing was negative. On today's evaluation of 04/29/2021, the patient is feeling slightly better. Slightly less short of breath compared to yesterday. He treated with a combination of bronchodilators and steroids and antibiotics and the patient is being treated for an acute COPD exacerbation. She has advanced end-stage COPD with an FEV1 of 20% of predicted. Her Covid 19 testing was negative. Blood work today, white cell count of 13.6 with a hemoglobin of 11. Sodium is at 122 which is chronically low. Chloride is a 79. Is a 36 with a creatinine of 0.6. Objective - Vital Signs Vital signs: Vital Signs Temp 98 F 04/29/21 07:19 Pulse 84 04/29/21 11:39 Resp 20 04/29/21 11:39 BP 146/74 04/29/21 07:19 Pulse Ox 100 04/29/21 07:48 Intake & Output 04/28/21 04/29/21 04/29/21 18:59 06:59 18:59 Intake Total 1200 Balance 1200 Intake: Oral 1200 Other: Voiding Method Diaper Diaper Diaper # Voids 1 3 - Exam GENERAL EXAM: Alert, pleasant, 75-year-old frail looking white female, looks older than stated age, currently on 4 L of oxygen, thin built comfortable in no apparent distress. Appears somewhat disheveled and poorly kept, with spilled food and drink stains on clothes HEAD: Normocephalic/atraumatic. EYES: Normal reaction of pupils, equal size. Conjunctiva pink, sclera white. NOSE: Clear with pink turbinates. THROAT: No erythema or exudates. NECK: No masses, no JVD, no thyroid enlargement, no adenopathy. CHEST: No chest wall deformity. Symmetrical expansion. LUNGS: Diminished breath sounds equal air entry with end expiratory wheezes CVS: Regular rate and rhythm, normal S1 and S2, no gallops, no murmurs, no rubs ABDOMEN: Soft, nontender. No hepatosplenomegaly, normal bowel sounds, no guarding or rigidity. EXTREMITIES: No clubbing, no edema, no cyanosis, 2+ pulses and upper and lower extremities. MUSCULOSKELETAL: Muscle strength and tone normal. SPINE: No scoliosis or deformity SKIN: No rashes CENTRAL NERVOUS SYSTEM: Alert and oriented -3. No focal deficits, tone is normal in all 4 extremities. PSYCHIATRIC: Alert and oriented -3. Appropriate affect. Intact judgment and insight. - Labs CBC & Chem 7: 04/29/21 06:19 04/29/21 06:19 Labs: Abnormal Lab Results - Last 24 Hours (Table) 04/28/21 04/28/21 04/29/21 Range/Units 16:04 20:53 06:19 WBC 13.61 H (4.50-10.00) X 10*3/uL RBC 3.97 L (4.10-5.20) X 10*6/uL Hgb 11.0 L (12.0-15.0) g/dL Hct 36.1 L (37.2-46.3) % MCHC 30.5 L (32.0-37.0) g/dL Immature Gran # 0.10 H (0.00-0.04) X 10*3/uL Neutrophils # 12.82 H (1.80-7.70) X 10*3/uL Lymphocytes # 0.18 L (0.90-5.00) X 10*3/uL Eosinophils # 0 L (0.04-0.35) X 10*3/uL Sodium (135-145) mmol/L Potassium (3.5-5.5) mmol/L Chloride (96-109) mmol/L Carbon Dioxide (21.6-31.8) mmol/L BUN (9.0-27.0) mg/dL BUN/Creatinine Ratio (12.00-20.00) Ratio Glucose (70-110) mg/dL POC Glucose (mg/dL) 231 H 236 H (75-99) mg/dL 04/29/21 04/29/21 Range/Units 06:19 11:23 WBC (4.50-10.00) X 10*3/uL RBC (4.10-5.20) X 10*6/uL Hgb (12.0-15.0) g/dL Hct (37.2-46.3) % MCHC (32.0-37.0) g/dL Immature Gran # (0.00-0.04) X 10*3/uL Neutrophils # (1.80-7.70) X 10*3/uL Lymphocytes # (0.90-5.00) X 10*3/uL Eosinophils # (0.04-0.35) X 10*3/uL Sodium 122 L (135-145) mmol/L Potassium 5.6 H (3.5-5.5) mmol/L Chloride 79 L (96-109) mmol/L Carbon Dioxide 35.0 H (21.6-31.8) mmol/L BUN 36.2 H (9.0-27.0) mg/dL BUN/Creatinine Ratio 60.33 H (12.00-20.00) Ratio Glucose 197 H (70-110) mg/dL POC Glucose (mg/dL) 125 H (75-99) mg/dL Assessment and Plan Plan: #1. Acute exacerbation of COPD. COVID 19 PCR pending, CXR shows mild pulm vascular prominence, possible tiny right pleural effusion or atelectasis, clinically improving, she is currently on 2 L about 2 by nasal cannula #2. Hyponatremia, sodium level is is still at 122 and the patient is receiving fluid restriction. This continued IV fluids yesterday. Allow the patient to take some increased amount of salt. #2. The patient has advanced and end-stage COPD with chronic hypoxemic and hypercapnic respiratory failure related to advanced COPD, stage IV, with baseline FEV1 of 28% of predicted, oxygen at 3 L of O2 by nasal cannula. #3. Chronic nicotine dependence, just recently quit #4. Hypertension #5. Osteoarthritis #6. Hypothyroidism #7. Anxiety #8. Frequent falls #9. History of fracture in the left upper extremity #10. multiple areas of skin laceration largest in the left upper lower extremity Plan: We'll continue same treatment for another 24 hours Recommend fluid restriction and monitor the sodium level The patient COPD is advanced and its end stage. She is quite short of breath and lethargic. She is not showing any signs of CO2 narcosis. We'll continue the same treatment for now. No much progress since yesterday. We'll continue IV Solu-Medrol 60 mg every 6 hours Nebulized bronchodilators, Pulmicort, Perforomist, DuoNeb We'll resume home medications COVID 19 PCR was negative Mucinex DM twice a day heparin subcu for DVT prophylaxis Provide the patient incentive spirometer Further recommendation to follow
[2021-04-29 16:36] LABS: Glucose,Whole Blood 264 mg/dL (75-99)
[2021-04-29 20:41] LABS: Glucose,Whole Blood 161 mg/dL (75-99)
[2021-04-29] MEDS: SODIUM CHLORIDE TAB 1 GM TAB PO SCH (21:00)
--- NOTE | 2021-04-29 21:37 | PN ---
PROGRESS NOTE DATE OF SERVICE: 04/29/2021 This 75-year-old woman who was admitted with COPD acute exacerbation with acute hypoxic hypercapnic respiratory failure is being closely monitored. No chest pain. No palpitations. No fever. The patient had a CT of the brain also done which showed no acute abnormality. PHYSICAL EXAMINATION: Alert and oriented x2. The patient has got some shaking tremors. Pulse 73, blood pressure 149/74, respiration 18, temperature 98.4, pulse ox 98% on 3 L. HEENT: Conjunctivae normal. Neck: No JVD. Cardiovascular: S1, S2 muffled. Respiratory: Breath sounds diminished at the bases. A few scattered rhonchi. ABDOMEN: Soft, nontender. Legs are no edema. No swelling. Nervous system: No focal deficits. LABS: WBC 13.6, hemoglobin 11, sodium 122, potassium 5.6. ASSESSMENT: 1. Chronic obstructive pulmonary disease acute exacerbation with acute hypoxic hypercarbic respiratory failure with acute purulent tracheobronchitis. 2. Change in mental status acute metabolic encephalopathy multifactorial. 3. Hyponatremia. 4. Hyperkalemia. 5. Diabetes mellitus, type 2. 6. Elevated serum procalcitonin. 7. History of congestive heart failure, with no acute exacerbation. 8. Diabetes mellitus type 2. 9. Hypertension. 10.Degenerative joint disease. 11.Hypothyroidism. 12.New onset diabetes type 2 recently. 13.Severe constipation, obstipation. 14.Chronic hypoxic respiratory failure. RECOMMENDATIONS AND DISCUSSION: I recommend to continue current medications, management and symptomatic treatment. Continue the bronchodilators. Continue with empiric antibiotics. Otherwise, closely follow with Pulmonary. IV steroids. Guarded prognosis because of multiple complex medical issues. I would also recommend PT/OT evaluation and consider ECF rehab. Prognosis guarded. Further recommendations to follow. MMODL / IJN: [id number] /
[2021-04-30] MEDS: methylPREDNISolone SOD SUCCI 125 MG/2 ML VIAL IV SCH ×5 (00:23→23:31)
[2021-04-30] MEDS: LEVOTHYROXINE 75 MCG TAB PO SCH (06:09)
[2021-04-30 06:42] LABS: Glucose,Whole Blood 176 mg/dL (75-99)
[2021-04-30] MEDS: FORMOTEROL FUMARATE 20 MCG/2 ML NEBU INHALATION SCH ×2 (07:51→20:16)
[2021-04-30] MEDS: IPRATROPIUM-ALBUTEROL 3 ML NEB INHALATION SCH ×4 (07:51→20:16)
[2021-04-30] MEDS: BUDESONIDE 1 MG/2 ML NEBU INHALATION SCH ×2 (07:51→20:16)
[2021-04-30] MEDS: LORATADINE 10 MG TAB PO SCH (08:30)
[2021-04-30] MEDS: PANTOPRAZOLE 40 MG TABLET PO SCH (08:30)
[2021-04-30] MEDS: metFORMIN 500 MG TAB PO SCH ×2 (08:30→17:32)
[2021-04-30] MEDS: lisinopriL 20 MG TAB PO SCH ×2 (08:30→19:53)
[2021-04-30] MEDS: SODIUM CHLORIDE TAB 1 GM TAB PO SCH ×2 (08:30→21:22)
[2021-04-30] MEDS: METOPROLOL TARTRATE 25 MG TAB PO SCH ×2 (08:30→19:53)
[2021-04-30] MEDS: guaiFENesin-DM 600/30MG 1 EACH TAB.ER.12H PO SCH ×3 (08:30→21:22)
[2021-04-30] MEDS: NYSTATIN 100,000 UNIT/ML SUSP 500,000 UNIT/5 ML CUP PO SCH ×4 (08:31→21:22)
[2021-04-30] MEDS: INSULIN ASPART (NovoLOG) 100 UNIT/ML VIAL SQ SCH ×4 (08:32→21:21)
[2021-04-30] MEDS: NICOTINE 14MG/24HR PATCH TRANSDERM SCH (08:33)
[2021-04-30] MEDS: HEPARIN SODIUM,PORCINE/PF 5,000 UNIT/0.5 ML SYRINGE SQ SCH ×2 (08:53→19:53)
[2021-04-30 11:40] LABS: Glucose,Whole Blood 137 mg/dL (75-99)
[2021-04-30] MEDS: THIAMINE 100 MG TAB PO SCH (12:10)
[2021-04-30] MEDS: MULTIVITAMINS, THERA 1 EACH TAB PO SCH (12:10)
[2021-04-30] MEDS: FOLIC ACID 1 MG TAB PO SCH (12:10)
[2021-04-30 13:53] LABS: African American GFR (CKD) 99.7 (60.0-200.0); Albumin 3.6 g/dL (3.8-4.9); Anion Gap 8.7 mmol/L (4.00-12.00); BUN/Creat Ratio 61.31 Ratio (12.00-20.00); Blood Urea Nitrogen 39.3 mg/dL (9.0-27.0); Calcium 9.1 mg/dL (8.7-10.3); Carbon Dioxide 33.9 mmol/L (21.6-31.8); Globulin 1.8 g/dL (1.6-3.3); Potassium 5.8 mmol/L (3.5-5.5); Total Bilirubin 0.4 mg/dL (0.30-1.20); Total Protein 5.5 g/dL (6.2-8.2)
--- NOTE | 2021-04-30 15:20 | P.PN ---
Subjective Progress Note Date: 04/30/21 75-year-old white female patient with past medical history of advanced COPD, on home oxygen, normally wears 4 L of oxygen, baseline FEV1 of 28% of predicted, stage IV COPD, long history of smoking, currently in remission, hypertension, osteoarthritis, hypothyroidism, anxiety, was recently hospitalized for acute exacerbation of COPD in March. Following her hospitalization patient states she was discharged home. She came into the emergency department on 04/27/2021 for evaluation of shortness of breath, she was brought in by ambulance. Patient has had worsening dyspnea for the last 2 days, she reports mild cough with clear sputum production. No chest pain, she reports fevers. She recently just stopped smoking. She is currently on 3 L of oxygen, her pulse ox is 95%, she is afebrile, hemodynamically she is stable. Lung sounds are very diminished bilaterally, patient overall appears to be very fatigued, but does not appear to be in any acute distress. Chest x-ray film has been reviewed, possibly mild pulmonary vascular prominence, and tiny right pleural effusion/or atelectasis. Patient has been given Solu-Medrol 125 mg 1, and was given nebulized treatment. She still being worked up in the emergency department. Admission blood work is still pending. On today's evaluation, the patient is being seen for a follow-up on the observation unit. She is essentially the same as yesterday. She is quite short of breath even at rest. She is actively bronchospastic and wheezy and she has marked breath sounds diminished in the lung bases bilaterally. Note that her COPD is advanced. She almost has an end-stage COPD with an FEV1 of 20% of predicted and she is on oxygen at 4 L at home. She is currently on a combination of bronchodilators and steroids. Blood work shows a sodium level of 124 and a serum bicarbonate of 42 with a BUN of 32 and a creatinine of 0.4. COCIV 19 testing was negative. On today's evaluation of 04/29/2021, the patient is feeling slightly better. Slightly less short of breath compared to yesterday. He treated with a combination of bronchodilators and steroids and antibiotics and the patient is being treated for an acute COPD exacerbation. She has advanced end-stage COPD with an FEV1 of 20% of predicted. Her Covid 19 testing was negative. Blood work today, white cell count of 13.6 with a hemoglobin of 11. Sodium is at 122 which is chronically low. Chloride is a 79. Is a 36 with a creatinine of 0.6. 04/30/2021, the patient is being seen for a follow-up. She is resting comfortably in bed. She has no specific complaints. The patient thinks that she is doing slightly better compared to yesterday. She remains on bronchodilators. She remains on steroids. Her oral intake is minimal. I noted a further drop in the sodium level which is down to 120 with a chloride level of 77 and a BUN is currently at 39 with a creatinine of 0.6. Based on that, the patient was started on a normal saline infusion rate of 50. Her blood sugar fr om today is 137. No chest pain. No angina. No altered mentation. No signs of any CO2 narcosis. No altered mentation related to her underlying hyponatremia which is essentially chronic Objective - Vital Signs Vital signs: Vital Signs Temp 98.7 F 04/30/21 14:03 Pulse 61 04/30/21 14:03 Resp 18 04/30/21 14:03 BP 151/52 04/30/21 14:03 Pulse Ox 98 04/30/21 14:03 Intake & Output 04/29/21 04/30/21 04/30/21 18:59 06:59 18:59 Other: Voiding Method Diaper Diaper Diaper # Voids 2 2 - Exam GENERAL EXAM: Alert, pleasant, 75-year-old frail looking white female, looks older than stated age, currently on 4 L of oxygen, thin built comfortable in no apparent distress. Appears somewhat disheveled and poorly kept, with spilled food and drink stains on clothes HEAD: Normocephalic/atraumatic. EYES: Normal reaction of pupils, equal size. Conjunctiva pink, sclera white. NOSE: Clear with pink turbinates. THROAT: No erythema or exudates. NECK: No masses, no JVD, no thyroid enlargement, no adenopathy. CHEST: No chest wall deformity. Symmetrical expansion. LUNGS: Diminished breath sounds equal air entry with end expiratory wheezes CVS: Regular rate and rhythm, normal S1 and S2, no gallops, no murmurs, no rubs ABDOMEN: Soft, nontender. No hepatosplenomegaly, normal bowel sounds, no guarding or rigidity. EXTREMITIES: No clubbing, no edema, no cyanosis, 2+ pulses and upper and lower extremities. MUSCULOSKELETAL: Muscle strength and tone normal. SPINE: No scoliosis or deformity SKIN: No rashes CENTRAL NERVOUS SYSTEM: Alert and oriented -3. No focal deficits, tone is normal in all 4 extremities. PSYCHIATRIC: Alert and oriented -3. Appropriate affect. Intact judgment and insight. - Labs CBC & Chem 7: 04/29/21 06:19 04/30/21 07:50 Labs: Abnormal Lab Results - Last 24 Hours (Table) 04/29/21 04/29/21 04/30/21 Range/Units 16:30 20:39 06:39 Sodium (135-145) mmol/L Potassium (3.5-5.5) mmol/L Chloride (96-109) mmol/L Carbon Dioxide (21.6-31.8) mmol/L BUN (9.0-27.0) mg/dL BUN/Creatinine Ratio (12.00-20.00) Ratio Glucose (70-110) mg/dL POC Glucose (mg/dL) 264 H 161 H 176 H (75-99) mg/dL Total Protein (6.2-8.2) g/dL Albumin (3.8-4.9) g/dL 04/30/21 04/30/21 Range/Units 07:50 11:37 Sodium 120 L (135-145) mmol/L Potassium 5.8 H (3.5-5.5) mmol/L Chloride 77 L (96-109) mmol/L Carbon Dioxide 33.9 H (21.6-31.8) mmol/L BUN 39.3 H (9.0-27.0) mg/dL BUN/Creatinine Ratio 61.31 H (12.00-20.00) Ratio Glucose 145 H (70-110) mg/dL POC Glucose (mg/dL) 137 H (75-99) mg/dL Total Protein 5.5 L (6.2-8.2) g/dL Albumin 3.6 L (3.8-4.9) g/dL Assessment and Plan Plan: #1. Acute exacerbation of COPD. COVID 19 PCR pending, CXR shows mild pulm vascular prominence, possible tiny right pleural effusion or atelectasis, clinically improving, she is currently on 2 L about 2 by nasal cannula #2. Hyponatremia, sodium level is low at 120 and the patient will be started on normal saline at the rate of 50 mL an hour. #2. The patient has advanced and end-stage COPD with chronic hypoxemic and hypercapnic respiratory failure related to advanced COPD, stage IV, with baseline FEV1 of 28% of predicted, oxygen at 3 L of O2 by nasal cannula. #3. Chronic nicotine dependence, just recently quit #4. Hypertension #5. Osteoarthritis #6. Hypothyroidism #7. Anxiety #8. Frequent falls #9. History of fracture in the left upper extremity #10. multiple areas of skin laceration largest in the left upper lower extremity Plan: Gentle hydration with normal saline and monitor his sodium level The patient COPD is advanced and its end stage. She is quite short of breath and lethargic. She is not showing any signs of CO2 narcosis. We'll continue the same treatment for now. Slightly improved compared to yesterday terms of her COPD exacerbation we'll continue same treatment We'll continue IV Solu-Medrol 60 mg every 6 hours Nebulized bronchodilators, Pulmicort, Perforomist, DuoNeb We'll resume home medications COVID 19 PCR was negative Mucinex DM twice a day heparin subcu for DVT prophylaxis Provide the patient incentive spirometer Further recommendation to follow Long-term prognosis poor baseline above-mentioned comorbidities.
[2021-04-30 16:30] LABS: Glucose,Whole Blood 150 mg/dL (75-99)
[2021-04-30] MEDS: SODIUM CHLORIDE 0.9% 1,000 ML IV SCH (17:49)
[2021-04-30] MEDS ORDERED: SODIUM POLYSTYRENE SULFONATE 15 GM/60 ML BOTTLE PO STA (20:24)
[2021-04-30 20:36] LABS: Glucose,Whole Blood 158 mg/dL (75-99)
--- NOTE | 2021-04-30 21:16 | PN ---
PROGRESS NOTE DATE OF SERVICE: 04/30/2021 This 75 -year-old woman who was admitted with COPD, acute exacerbation, acute hypoxic hypercarbic respiratory failure, acute purulent tracheobronchitis, is being closely monitored. No chest pain. No palpitations. No fever. PHYSICAL EXAMINATION: Alert and oriented times three. Pulse is 54, blood pressure 155/70, respiration 17, temperature 98.2, pulse ox 98% on 3 L. HEENT: Conjunctivae normal. Neck: No JVD. Cardiovascular: S1, S2 muffled. Respiratory System: Breath sounds diminished at the bases. A few scattered rhonchi. Abdomen: Soft. Legs: No edema. Nervous system: No focal deficits. LAB STUDIES: Sodium is 120, potassium 5.8. ASSESSMENT: 1. Chronic obstructive pulmonary disease acute exacerbation with acute with acute hypoxic hypercarbic respiratory failure with acute purulent tracheobronchitis. 2. Change in mental status, acute metabolic encephalopathy, multifactorial. 3. Hyponatremia. 4. Hyperkalemia. 5. Diabetes mellitus, type 2. 6. Elevated serum procalcitonin. 7. History of congestive heart failure with no acute exacerbation. 8. Diabetes mellitus type 2. 9. Hypertension. 10.Degenerative joint disease. 11.Hypothyroidism. 12.New onset diabetes type 2 recently. 13.Severe constipation/obstipation. 14.Chronic hypoxic respiratory failure. RECOMMENDATIONS AND DISCUSSION: I recommend to continue current medications, management and symptomatic treatment. Otherwise the [place]. I would also recommend PT/OT evaluation and possible ECF rehab and avoid hyperkalemic medications. Guarded prognosis. Further recommendations to follow. MMODL / IJN: [id number] /
[2021-04-30] MEDS: DOCUSATE 100 MG CAP PO SCH (21:22)
[2021-05-01] MEDS: LEVOTHYROXINE 75 MCG TAB PO SCH (05:44)
[2021-05-01] MEDS: methylPREDNISolone SOD SUCCI 125 MG/2 ML VIAL IV SCH ×4 (05:44→23:31)
[2021-05-01 07:24] LABS: Glucose,Whole Blood 141 mg/dL (75-99)
[2021-05-01] MEDS: INSULIN ASPART (NovoLOG) 100 UNIT/ML VIAL SQ SCH ×4 (07:43→21:32)
[2021-05-01] MEDS: HEPARIN SODIUM,PORCINE/PF 5,000 UNIT/0.5 ML SYRINGE SQ SCH ×2 (07:43→21:32)
[2021-05-01] MEDS: guaiFENesin-DM 600/30MG 1 EACH TAB.ER.12H PO SCH ×2 (07:52→21:33)
[2021-05-01] MEDS: DOCUSATE 100 MG CAP PO SCH ×2 (07:52→21:32)
[2021-05-01] MEDS: LORATADINE 10 MG TAB PO SCH (07:52)
[2021-05-01] MEDS: PANTOPRAZOLE 40 MG TABLET PO SCH (07:52)
[2021-05-01] MEDS: NYSTATIN 100,000 UNIT/ML SUSP 500,000 UNIT/5 ML CUP PO SCH ×4 (07:52→22:15)
[2021-05-01] MEDS: lisinopriL 20 MG TAB PO SCH ×2 (07:52→21:32)
[2021-05-01] MEDS: metFORMIN 500 MG TAB PO SCH ×2 (07:52→17:06)
[2021-05-01] MEDS: METOPROLOL TARTRATE 25 MG TAB PO SCH ×2 (07:52→21:31)
[2021-05-01] MEDS: SODIUM CHLORIDE TAB 1 GM TAB PO SCH ×2 (07:53→22:15)
[2021-05-01] MEDS: NICOTINE 14MG/24HR PATCH TRANSDERM SCH (07:53)
[2021-05-01] MEDS: FORMOTEROL FUMARATE 20 MCG/2 ML NEBU INHALATION SCH ×2 (09:12→19:57)
[2021-05-01] MEDS: IPRATROPIUM-ALBUTEROL 3 ML NEB INHALATION SCH ×4 (09:12→19:40)
[2021-05-01] MEDS: BUDESONIDE 1 MG/2 ML NEBU INHALATION SCH ×2 (09:12→19:40)
[2021-05-01 10:43] LABS: Basophils # (A) 0.01 X 10*3/uL (0.00-0.10); Basophils % (A) 0.1 %; Eosinophils # (A) 0 X 10*3/uL (0.04-0.35); Eosinophils % (A) 0 %; HCT 36.1 % (37.2-46.3); HGB 11.3 g/dL (12.0-15.0); Lymphocytes # (A) 0.18 X 10*3/uL (0.90-5.00); Lymphocytes % (A) 1.9 %; MCH 26.9 pg (27.0-32.0); MCHC 31.3 g/dL (32.0-37.0); Mean Platelet Volume 11.4 fL (9.5-12.2); Monocytes # (A) 0.48 X 10*3/uL (0.20-1.00); Monocytes % (A) 5.1 %; Neutrophils # (A) 8.55 X 10*3/uL (1.80-7.70); Neutrophils % (A) 91.6 %; Platelet Count 244 X 10*3/uL (140-440); RDW 14.4 % (11.5-14.5); WBC 9.34 X 10*3/uL (4.50-10.00)
[2021-05-01 11:23] LABS: Anion Gap 7.8 mmol/L (4.00-12.00); BUN/Creat Ratio 67.72 Ratio (12.00-20.00); Calcium 8.8 mg/dL (8.7-10.3); Carbon Dioxide 31.9 mmol/L (21.6-31.8); Non-African American GFR(CKD) 86.3 (60.0-200.0); Potassium 5.2 mmol/L (3.5-5.5)
[2021-05-01] MEDS: MULTIVITAMINS, THERA 1 EACH TAB PO SCH (11:32)
[2021-05-01] MEDS: THIAMINE 100 MG TAB PO SCH (11:32)
[2021-05-01] MEDS: FOLIC ACID 1 MG TAB PO SCH (11:32)
[2021-05-01 11:38] LABS: Glucose,Whole Blood 191 mg/dL (75-99)
[2021-05-01] MEDS: SODIUM CHLORIDE 0.9% 1,000 ML IV SCH (11:40)
--- NOTE | 2021-05-01 14:19 | P.PN ---
Subjective Progress Note Date: 05/01/21 75-year-old white female patient with past medical history of advanced COPD, on home oxygen, normally wears 4 L of oxygen, baseline FEV1 of 28% of predicted, stage IV COPD, long history of smoking, currently in remission, hypertension, osteoarthritis, hypothyroidism, anxiety, was recently hospitalized for acute exacerbation of COPD in March. Following her hospitalization patient states she was discharged home. She came into the emergency department on 04/27/2021 for evaluation of shortness of breath, she was brought in by ambulance. Patient has had worsening dyspnea for the last 2 days, she reports mild cough with clear sputum production. No chest pain, she reports fevers. She recently just stopped smoking. She is currently on 3 L of oxygen, her pulse ox is 95%, she is afebrile, hemodynamically she is stable. Lung sounds are very diminished bilaterally, patient overall appears to be very fatigued, but does not appear to be in any acute distress. Chest x-ray film has been reviewed, possibly mild pulmonary vascular prominence, and tiny right pleural effusion/or atelectasis. Patient has been given Solu-Medrol 125 mg 1, and was given nebulized treatment. She still being worked up in the emergency department. Admission blood work is still pending. On today's evaluation, the patient is being seen for a follow-up on the observation unit. She is essentially the same as yesterday. She is quite short of breath even at rest. She is actively bronchospastic and wheezy and she has marked breath sounds diminished in the lung bases bilaterally. Note that her COPD is advanced. She almost has an end-stage COPD with an FEV1 of 20% of predicted and she is on oxygen at 4 L at home. She is currently on a combination of bronchodilators and steroids. Blood work shows a sodium level of 124 and a serum bicarbonate of 42 with a BUN of 32 and a creatinine of 0.4. COCIV 19 testing was negative. On today's evaluation of 04/29/2021, the patient is feeling slightly better. Slightly less short of breath compared to yesterday. He treated with a combination of bronchodilators and steroids and antibiotics and the patient is being treated for an acute COPD exacerbation. She has advanced end-stage COPD with an FEV1 of 20% of predicted. Her Covid 19 testing was negative. Blood work today, white cell count of 13.6 with a hemoglobin of 11. Sodium is at 122 which is chronically low. Chloride is a 79. Is a 36 with a creatinine of 0.6. 04/30/2021, the patient is being seen for a follow-up. She is resting comfortably in bed. She has no specific complaints. The patient thinks that she is doing slightly better compared to yesterday. She remains on bronchodilators. She remains on steroids. Her oral intake is minimal. I noted a further drop in the sodium level which is down to 120 with a chloride level of 77 and a BUN is currently at 39 with a creatinine of 0.6. Based on that, the patient was started on a normal saline infusion rate of 50. Her blood sugar fr om today is 137. No chest pain. No angina. No altered mentation. No signs of any CO2 narcosis. No altered mentation related to her underlying hyponatremia which is essentially chronic 05/01/2021, I see the patient slightly more sleepy. Yet she arouses later stated she was feeling well. She has no specific complaints. She continues to receive treatment for COPD exacerbation. The patient was also noted to have significant hyponatremia. She was started on normal saline which is currently running at the rate of 40 mL an hour.The sodium level is improved compared to yesterday and currently is up to 122. Potassium level is at 5.2. Mean is at 43 with a creatinine of 0.6. White cell count is at 9.3 with hemoglobin 11.3. The patient has an incentive spirometer at the bedside and she is using periodically. She is resting comfortably in bed. Her breathing is nonlabored. Occasional congested cough. No stiffness sputum production. No signs of any CO2 narcosis. Objective - Vital Signs Vital signs: Vital Signs Temp 98.1 F 05/01/21 08:00 Pulse 78 05/01/21 09:30 Resp 16 05/01/21 08:50 BP 150/74 05/01/21 08:00 Pulse Ox 99 05/01/21 08:00 Intake & Output 04/30/21 05/01/21 05/01/21 18:59 06:59 18:59 Intake Total 100 Balance 100 Intake: Oral 100 Other: Voiding Method Diaper Diaper Diaper # Voids 2 4 - Labs CBC & Chem 7: 05/01/21 07:09 05/01/21 07:09 Labs: Abnormal Lab Results - Last 24 Hours (Table) 04/30/21 04/30/21 05/01/21 Range/Units 16:28 20:31 07:09 Hgb 11.3 L (12.0-15.0) g/dL Hct 36.1 L (37.2-46.3) % MCH 26.9 L (27.0-32.0) pg MCHC 31.3 L (32.0-37.0) g/dL Immature Gran # 0.12 H (0.00-0.04) X 10*3/uL Neutrophils # 8.55 H (1.80-7.70) X 10*3/uL Lymphocytes # 0.18 L (0.90-5.00) X 10*3/uL Eosinophils # 0 L (0.04-0.35) X 10*3/uL Sodium (135-145) mmol/L Chloride (96-109) mmol/L Carbon Dioxide (21.6-31.8) mmol/L BUN (9.0-27.0) mg/dL BUN/Creatinine Ratio (12.00-20.00) Ratio Glucose (70-110) mg/dL POC Glucose (mg/dL) 150 H 158 H (75-99) mg/dL 05/01/21 05/01/21 05/01/21 Range/Units 07:09 07:22 11:37 Hgb (12.0-15.0) g/dL Hct (37.2-46.3) % MCH (27.0-32.0) pg MCHC (32.0-37.0) g/dL Immature Gran # (0.00-0.04) X 10*3/uL Neutrophils # (1.80-7.70) X 10*3/uL Lymphocytes # (0.90-5.00) X 10*3/uL Eosinophils # (0.04-0.35) X 10*3/uL Sodium 122 L (135-145) mmol/L Chloride 82 L (96-109) mmol/L Carbon Dioxide 31.9 H (21.6-31.8) mmol/L BUN 43.0 H (9.0-27.0) mg/dL BUN/Creatinine Ratio 67.72 H (12.00-20.00) Ratio Glucose 136 H (70-110) mg/dL POC Glucose (mg/dL) 141 H 191 H (75-99) mg/dL Assessment and Plan Plan: #1. Acute exacerbation of COPD. COVID 19 PCR pending, CXR shows mild pulm vascular prominence, possible tiny right pleural effusion or atelectasis, clinically improving, she is currently on 2 L about 2 by nasal cannula #2. Hyponatremia, sodium level is low at 120 and the patient will be started on normal saline at the rate of 50 mL an hour.sodium level today is at 122 and is g radually improving. We'll continue gentle hydration. #2. The patient has advanced and end-stage COPD with chronic hypoxemic and hypercapnic respiratory failure related to advanced COPD, stage IV, with baseline FEV1 of 28% of predicted, oxygen at 3 L of O2 by nasal cannula. #3. Chronic nicotine dependence, just recently quit #4. Hypertension #5. Osteoarthritis #6. Hypothyroidism #7. Anxiety #8. Frequent falls #9. History of fracture in the left upper extremity #10. multiple areas of skin laceration largest in the left upper lower extremity Plan: Gentle hydration with normal saline and monitor his sodium level, most recent level is up to 122 The patient COPD is advanced and its end stage. She is quite short of breath and lethargic. She is not showing any signs of CO2 narcosis. We'll continue the same treatment for now. Slightly improved compared to yesterday terms of her COPD exacerbation we'll continue same treatment We'll continue IV Solu-Medrol 60 mg every 6 hours, we'll start tapering steroids as of tomorrow Nebulized bronchodilators, Pulmicort, Perforomist, DuoNeb We'll resume home medications COVID 19 PCR was negative Mucinex DM twice a day heparin subcu for DVT prophylaxis Provide the patient incentive spirometer Further recommendation to follow Long-term prognosis poor baseline above-mentioned comorbidities.will be higher feeling today
[2021-05-01 16:53] LABS: Glucose,Whole Blood 187 mg/dL (75-99)
[2021-05-01 21:09] LABS: Glucose,Whole Blood 232 mg/dL (75-99)
[2021-05-02] MEDS: LEVOTHYROXINE 75 MCG TAB PO SCH (05:53)
[2021-05-02] MEDS: methylPREDNISolone SOD SUCCI 125 MG/2 ML VIAL IV SCH ×2 (05:53→13:55)
[2021-05-02 06:46] LABS: Glucose,Whole Blood 177 mg/dL (75-99)
[2021-05-02 07:54] LABS: African American GFR (CKD) 77 (>60 ml/min/1.73 sqM); Anion Gap 2 mmol/L; Blood Urea Nitrogen 65 mg/dL (7-17); Calcium 8.6 mg/dL (8.4-10.2); Carbon Dioxide 32 mmol/L (22-30); Chloride 85 mmol/L (98-107); Glucose 184 mg/dL (74-99); Non-African American GFR(CKD) 67 (>60 ml/min/1.73 sqM); Potassium 4.9 mmol/L (3.5-5.1)
[2021-05-02 07:58] LABS: Sodium 119 mmol/L (137-145)
[2021-05-02] MEDS: FORMOTEROL FUMARATE 20 MCG/2 ML NEBU INHALATION SCH ×2 (09:00→20:13)
[2021-05-02] MEDS: IPRATROPIUM-ALBUTEROL 3 ML NEB INHALATION SCH ×4 (09:00→20:14)
[2021-05-02] MEDS: BUDESONIDE 1 MG/2 ML NEBU INHALATION SCH ×2 (09:00→20:13)
--- NOTE | 2021-05-02 09:37 | P.NPCON ---
History of Present Illness - Reason for Consult hyponatremia - History of Present Illness Reason for consultation: Hyponatremia History of present illness: Patient is a 75-year-old female seen in renal consultation for hyponatremia. Patient presented to the hospital on 04/27/2021 to shortness of breath. Patient has history of COPD and is home oxygen dependent. She is currently receiving a breathing treatment. Patient's sodium level was 124 on admission and is down to 119 today. She is maintained on normal saline as well as sodium chloride tabs. No edema. No chest pain. Oral intake has been poor. No vomiting or diarrhea. Patient has history of high blood pressure and she is maintained on lisinopril. Blood pressure this morning was 109/66. Has been voiding. No hematuria. No history of kidney disease. Creatinine 0.85 today. Not on any diuretics. Vital signs are stable. HEENT: Head exam is unremarkable. On nasal cannula. LUNGS: Breath sounds decreased. HEART: Rate and Rhythm are regular. ABDOMEN: Soft, no distention. EXTREMITITES: No edema. Chronic changes noted. Past Medical History Past Medical History: Heart Failure, COPD, Diabetes Mellitus, Hypertension, Osteoarthritis (OA), Respiratory Disorder, Thyroid Disorder, Vascular Disorder Additional Past Medical History / Comment(s): Pt recently admitted to [facility] on 10/23/20 with acute exacerbation chronic COPD, acute on chronic hypoxic hypercarbic respiratory failure, acute purulent tracheobronchitis, possible new onset diabetes, hyponatremia/hypovolemic, hyperkalemia, severe constipation/obstipation. Other hx: Advanced COPD, chronic hypoxic resp iratory failure, home oxygen, 2010 pericarditis, former smoker, hypothyroidism, skeletal chest wall pain, chronic anxiety, anemia, PVD, past leg and foot wounds, recent L distal radius fracture/L knee wound sutures since removed, gout, confused at times per spouse and recently has been bedbound. History of Any Multi-Drug Resistant Organisms: None Reported Past Surgical History: Heart Catheterization, Hysterectomy, Tubal Ligation Additional Past Surgical History / Comment(s): 2011 cardiac cath, 2013 cardiac angiogram, colonoscopy/benign polypectomy, anal fistula repair, bilateral cataract removals/lens implants. Past Anesthesia/Blood Transfusion Reactions: Previous Problems w/ Anesthesia, Postoperative Nausea & Vomiting (PONV) Additional Past Anesthesia/Blood Transfusion Reaction / Comment(s): oxygen was "low" post op, nausea one time Past Psychological History: Anxiety Additional Psychological History / Comment(s): Pt resides with her spouse and their son. Pt had home care thru [facility] but refused them. She has home oxygen, nebulizer and a glucometer. Pt no longer drives, her spouse and son drive. Smoking Status: Former smoker Past Alcohol Use History: None Reported Additional Past Alcohol Use History / Comment(s): Pt started smoking in 1960 and recently quit per spouse. Past Drug Use History: None Reported - Past Family History Mother History Unknown: Yes Family Medical History: Cancer, Thyroid Disorder Additional Family Medical History / Comment(s): Liver Cancer Father History Unknown: Yes Family Medical History: Cancer Medications and Allergies Home Medications Medication Instructions Recorded Confirmed Type Budesonide-Formot 160-4.5 Mcg 2 puff INHALATION RT-BID #1 vial 12/05/18 04/27/21 Rx [Symbicort 160-4.5 Mcg Inhaler] Levothyroxine Sodium [Synthroid] 150 mcg PO DAILY #30 tablet 12/05/18 04/27/21 Rx Albuterol Sulfate [Proair Hfa] 2 puff INHALATION RT-QID PRN 09/25/20 04/27/21 History Loratadine [Claritin] 10 mg PO DAILY 10/23/20 04/27/21 History Acetaminophen Tab [Tylenol] 650 mg PO Q6HR PRN tab 11/14/20 04/27/21 Rx Nystatin 100,000 Unit/ml Susp 5 ml PO QID 03/29/21 04/27/21 History [Mycostatin Oral Susp] lisinopriL [Zestril] 20 mg PO BID 03/29/21 04/27/21 History Metoprolol Tartrate [Lopressor] 25 mg PO BID #60 tab 04/03/21 04/27/21 Rx metFORMIN HCL ER [Glucophage XR] 500 mg PO AC-BID #60 tab 04/03/21 04/27/21 Rx INSULIN ASPART (NovoLOG) [NovoLOG See Protocol SQ ACHS 04/27/21 04/27/21 History (formulary)] predniSONE 5 mg PO SUTUTHSA 04/27/21 04/27/21 History predniSONE 10 mg PO MOWEFR 04/27/21 04/27/21 History Allergies Allergy/AdvReac Type Severity Reaction Status Date / Time bacitracin Allergy Rash/Hives Verified 04/27/21 13:52 [From Neosporin ([id number])] neomycin Allergy Rash/Hives Verified 04/27/21 13:52 [From Neosporin ([id number])] Penicillins Allergy Rash/Hives Verified 04/27/21 13:52 polymyxin B Allergy Rash/Hives Verified 04/27/21 13:52 [From Neosporin ([id number])] trimethoprim [From Polytrim] Allergy Rash/Hives Verified 04/27/21 13:52 levofloxacin [From Levaquin] AdvReac WEAKNESS Verified 04/27/21 13:52 ELDA/POLY/DEX Allergy Rash/Hives Uncoded 04/27/21 13:52 Physical Exam Vitals: Vital Signs Temp Pulse Pulse Resp BP Pulse Ox 05/02/21 09:15 76 05/02/21 09:00 76 05/02/21 02:23 98.3 F 66 18 109/66 99 05/01/21 20:01 80 05/01/21 19:54 80 05/01/21 19:42 78 05/01/21 19:39 82 16 05/01/21 19:33 98.5 F 82 16 112/69 100 05/01/21 17:01 78 05/01/21 16:40 80 05/01/21 14:00 98.0 F 66 14 130/84 99 Intake and Output 05/01/21 05/02/21 05/02/21 22:59 06:59 14:59 Other: Voiding Method Toilet Diaper # Voids 1 2 Results - Lab Results Most recent lab results Calcium 8.6 mg/dL (8.4-10.2) 05/02/21 07:21 05/01/21 07:09 05/02/21 07:21 Assessment and Plan Plan: Assessment: 1. Hyponatremia secondary to poor solute intake. Appears euvolemic. Sodium level was 124 on admission is 119 today. 2. Benign hypertension. 3. COPD exacerbation. Plan: 1200 mL fluid restriction. Encouraged oral intake. Add ensure. Maintain sodium chloride tabs. Stop normal saline. Check serum and urine osmolality and urine sodium level. Check TSH. Repeat sodium level this evening. Hold lisinopril for systolic blood pressure less than 120. Thank you for the consultation. I will continue to follow the patient during her hospital stay.
[2021-05-02] MEDS: METOPROLOL TARTRATE 25 MG TAB PO SCH ×2 (09:45→22:03)
[2021-05-02] MEDS: INSULIN ASPART (NovoLOG) 100 UNIT/ML VIAL SQ SCH ×4 (09:45→21:58)
[2021-05-02] MEDS: DOCUSATE 100 MG CAP PO SCH ×2 (09:45→21:58)
[2021-05-02] MEDS: LORATADINE 10 MG TAB PO SCH (09:45)
[2021-05-02] MEDS: PANTOPRAZOLE 40 MG TABLET PO SCH (09:45)
[2021-05-02] MEDS: lisinopriL 20 MG TAB PO SCH ×2 (09:45→21:58)
[2021-05-02] MEDS: metFORMIN 500 MG TAB PO SCH ×2 (09:45→17:40)
[2021-05-02] MEDS: NYSTATIN 100,000 UNIT/ML SUSP 500,000 UNIT/5 ML CUP PO SCH ×4 (09:45→22:00)
[2021-05-02] MEDS: HEPARIN SODIUM,PORCINE/PF 5,000 UNIT/0.5 ML SYRINGE SQ SCH ×2 (09:49→21:58)
[2021-05-02] MEDS: guaiFENesin-DM 600/30MG 1 EACH TAB.ER.12H PO SCH ×2 (09:50→21:58)
[2021-05-02] MEDS: SODIUM CHLORIDE TAB 1 GM TAB PO SCH ×2 (09:50→21:59)
[2021-05-02] MEDS: NICOTINE 14MG/24HR PATCH TRANSDERM SCH (10:07)
--- NOTE | 2021-05-02 12:01 | P.PN ---
Subjective Progress Note Date: 05/02/21 75-year-old white female patient with past medical history of advanced COPD, on home oxygen, normally wears 4 L of oxygen, baseline FEV1 of 28% of predicted, stage IV COPD, long history of smoking, currently in remission, hypertension, osteoarthritis, hypothyroidism, anxiety, was recently hospitalized for acute exacerbation of COPD in March. Following her hospitalization patient states she was discharged home. She came into the emergency department on 04/27/2021 for evaluation of shortness of breath, she was brought in by ambulance. Patient has had worsening dyspnea for the last 2 days, she reports mild cough with clear sputum production. No chest pain, she reports fevers. She recently just stopped smoking. She is currently on 3 L of oxygen, her pulse ox is 95%, she is afebrile, hemodynamically she is stable. Lung sounds are very diminished bilaterally, patient overall appears to be very fatigued, but does not appear to be in any acute distress. Chest x-ray film has been reviewed, possibly mild pulmonary vascular prominence, and tiny right pleural effusion/or atelectasis. Patient has been given Solu-Medrol 125 mg 1, and was given nebulized treatment. She still being worked up in the emergency department. Admission blood work is still pending. On today's evaluation, the patient is being seen for a follow-up on the observation unit. She is essentially the same as yesterday. She is quite short of breath even at rest. She is actively bronchospastic and wheezy and she has marked breath sounds diminished in the lung bases bilaterally. Note that her COPD is advanced. She almost has an end-stage COPD with an FEV1 of 20% of predicted and she is on oxygen at 4 L at home. She is currently on a combination of bronchodilators and steroids. Blood work shows a sodium level of 124 and a serum bicarbonate of 42 with a BUN of 32 and a creatinine of 0.4. COCIV 19 testing was negative. On today's evaluation of 04/29/2021, the patient is feeling slightly better. Slightly less short of breath compared to yesterday. He treated with a combination of bronchodilators and steroids and antibiotics and the patient is being treated for an acute COPD exacerbation. She has advanced end-stage COPD with an FEV1 of 20% of predicted. Her Covid 19 testing was negative. Blood work today, white cell count of 13.6 with a hemoglobin of 11. Sodium is at 122 which is chronically low. Chloride is a 79. Is a 36 with a creatinine of 0.6. 04/30/2021, the patient is being seen for a follow-up. She is resting comfortably in bed. She has no specific complaints. The patient thinks that she is doing slightly better compared to yesterday. She remains on bronchodilators. She remains on steroids. Her oral intake is minimal. I noted a further drop in the sodium level which is down to 120 with a chloride level of 77 and a BUN is currently at 39 with a creatinine of 0.6. Based on that, the patient was started on a normal saline infusion rate of 50. Her blood sugar fr today is 137. No chest pain. No angina. No altered mentation. No signs of any CO2 narcosis. No altered mentation related to her underlying hyponatremia which is essentially chronic 05/01/2021, I see the patient slightly more sleepy. Yet she arouses later stated she was feeling well. She has no specific complaints. She continues to receive treatment for COPD exacerbation. The patient was also noted to have significant hyponatremia. She was started on normal saline which is currently running at the rate of 40 mL an hour.The sodium level is improved compared to yesterday and currently is up to 122. Potassium level is at 5.2. Mean is at 43 with a creatinine of 0.6. White cell count is at 9.3 with hemoglobin 11.3. The patient has an incentive spirometer at the bedside and she is using periodically. She is resting comfortably in bed. Her breathing is nonlabored. Occasional congested cough. No stiffness sputum production. No signs of any CO2 narcosis. 05/02/2021, the patient continues to have issues with her sodium level which is down to 119. This is obviously of concern. The patient was thought to have hypovolemic hypochloremic hyponatremia. She was started normal saline infusion and the patient had a further drop in his sodium level. Based on that, this was discontinued. She remains on bronchodilators and steroids regarding her COPD exacerbation. She is currently being subjected to fluid restriction. No signs of any CO2 narcosis. No seizure activity. No other significant events overnight. She remains on bronchodilators and steroids for now. Objective - Vital Signs Vital signs: Vital Signs Temp 98.1 F 05/02/21 10:04 Pulse 69 05/02/21 10:04 Resp 17 05/02/21 10:04 BP 143/75 05/02/21 10:04 Pulse Ox 99 05/02/21 10:04 Intake & Output 05/01/21 05/02/21 05/02/21 18:59 06:59 18:59 Intake Total 100 Balance 100 Intake: Oral 100 Other: Voiding Method Diaper Toilet Diaper # Voids 1 2 - Exam GENERAL EXAM: Alert, pleasant, 75-year-old frail looking white female, looks older than stated age, currently on 4 L of oxygen, thin built comfortable in no apparent distress. Appears somewhat disheveled and poorly kept, with spilled food and drink stains on clothes HEAD: Normocephalic/atraumatic. EYES: Normal reaction of pupils, equal size. Conjunctiva pink, sclera white. NOSE: Clear with pink turbinates. THROAT: No erythema or exudates. NECK: No masses, no JVD, no thyroid enlargement, no adenopathy. CHEST: No chest wall deformity. Symmetrical expansion. LUNGS: Diminished breath sounds equal air entry with end expiratory wheezes CVS: Regular rate and rhythm, normal S1 and S2, no gallops, no murmurs, no rubs ABDOMEN: Soft, nontender. No hepatosplenomegaly, normal bowel sounds, no guarding or rigidity. EXTREMITIES: No clubbing, no edema, no cyanosis, 2+ pulses and upper and lower extremities. MUSCULOSKELETAL: Muscle strength and tone normal. SPINE: No scoliosis or deformity SKIN: No rashes CENTRAL NERVOUS SYSTEM: Alert and oriented -3. No focal deficits, tone is nor mal in all 4 extremities. PSYCHIATRIC: Alert and oriented -3. Appropriate affect. Intact judgment and insight. - Labs CBC & Chem 7: 05/01/21 07:09 05/02/21 07:21 Labs: Abnormal Lab Results - Last 24 Hours (Table) 05/01/21 05/01/21 05/02/21 Range/Units 16:51 21:01 06:43 Sodium (137-145) mmol/L Chloride (98-107) mmol/L Carbon Dioxide (22-30) mmol/L BUN (7-17) mg/dL Glucose (74-99) mg/dL POC Glucose (mg/dL) 187 H 232 H 177 H (75-99) mg/dL 05/02/21 Range/Units 07:21 Sodium 119 L* (137-145) mmol/L Chloride 85 L (98-107) mmol/L Carbon Dioxide 32 H (22-30) mmol/L BUN 65 H (7-17) mg/dL Glucose 184 H (74-99) mg/dL POC Glucose (mg/dL) (75-99) mg/dL Assessment and Plan Plan: #1. Acute exacerbation of COPD. COVID 19 PCR pending, CXR shows mild pulm vascular prominence, possible tiny right pleural effusion or atelectasis, clinically improving, she is currently on 2 L about 2 by nasal cannula #2. Hyponatremia, sodium level is low at 119, consider SIADH #2. The patient has advanced and end-stage COPD with chronic hypoxemic and hypercapnic respiratory failure related to advanced COPD, stage IV, with baseline FEV1 of 28% of predicted, oxygen at 3 L of O2 by nasal cannula. #3. Chronic nicotine dependence, just recently quit #4. Hypertension #5. Osteoarthritis #6. Hypothyroidism #7. Anxiety #8. Frequent falls #9. History of fracture in the left upper extremity #10. multiple areas of skin laceration largest in the left upper lower extremity Plan: Fluid restriction Monitor sodium level very closely. Nephrology has been consult on the case She is not showing any signs of CO2 narcosis. We'll continue the same treatment for now. Slightly improved compared to yesterday terms of her COPD exacerbation we'll continue same treatment We'll continue IV Solu-Medrol e 40 mg every 12 hours Nebulized bronchodilators, Pulmicort, Perforomist, DuoNeb We'll resume home medications COVID 19 PCR was negative Mucinex DM twice a day heparin subcu for DVT prophylaxis Provide the patient incentive spirometer Further recommendation to follow Long-term prognosis poor baseline above-mentioned comorbidities.will be higher feeling today
--- NOTE | 2021-05-02 13:11 | P.PN ---
Subjective Progress Note Date: 05/01/21 Principal diagnosis: Acute exacerbation COPD Critical hyponatremia 75-year-old white female patient with past medical history of advanced COPD, on home oxygen, normally wears 4 L of oxygen, baseline FEV1 of 28% of predicted, stage IV COPD, long history of smoking, currently in remission, hypertension, osteoarthritis, hypothyroidism, anxiety, was recently hospitalized for acute exacerbation of COPD in March. Following her hospitalization patient states she was discharged home. She came into the emergency department on 04/27/2021 for evaluation of shortness of breath, she was brought in by ambulance. Patient has had worsening dyspnea for the last 2 days, she reports mild cough with clear sputum production. No chest pain, she reports fevers. She recently just stopped smoking. She is currently on 3 L of oxygen, her pulse ox is 95%, she is afebrile, hemodynamically she is stable. Lung sounds are very diminished bilaterally, patient overall appears to be very fatigued, but does not appear to be in any acute distress. Chest x-ray film has been reviewed, possibly mild pulmonary vascular prominence, and tiny right pleural effusion/or atelectasis. Patient has been given Solu-Medrol 125 mg 1, and was given nebulized treatment. Objective - Vital Signs Vital signs: Vital Signs Temp 98.1 F 05/01/21 08:00 Pulse 78 05/01/21 09:30 Resp 16 05/01/21 08:50 BP 150/74 05/01/21 08:00 Pulse Ox 99 05/01/21 08:00 Intake & Output 04/30/21 05/01/21 05/01/21 18:59 06:59 18:59 Other: Voiding Method Diaper Diaper Diaper # Voids 2 4 - Exam General appearance: Present: average body habitus, cooperative, no acute distress Neck: Present: normal ROM. Absent: lymphadenopathy, rigidity, thyromegaly Carotids: negative: bruit present Thyroid: bilateral: normal size, negative: enlarged, nodule Respiratory: bilateral: CTA, negative: rales, rhonchi, wheezing Cardiovascular: regular; normal: S1, S2 Gastrointestinal: normal bowel sounds, soft. Absent: distended, organomegaly, tenderness Integumentary: Present: normal turgor. Absent: jaundiced, rash, ulcer Neurologic: Present: CNII-XII intact. Absent: focal deficits Musculoskeletal: Present: gait normal, strength equal bilaterally Psychiatric: Present: A&O x's 3, appropriate affect, intact judgment & insight - Labs CBC & Chem 7: 05/01/21 07:09 05/02/21 07:21 Labs: Abnormal Lab Results - Last 24 Hours (Table) 04/30/21 04/30/21 04/30/21 Range/Units 07:50 11:37 16:28 Hgb (12.0-15.0) g/dL Hct (37.2-46.3) % MCH (27.0-32.0) pg MCHC (32.0-37.0) g/dL Immature Gran # (0.00-0.04) X 10*3/uL Neutrophils # (1.80-7.70) X 10*3/uL Lymphocytes # (0.90-5.00) X 10*3/uL Eosinophils # (0.04-0.35) X 10*3/uL Sodium 120 L (135-145) mmol/L Potassium 5.8 H (3.5-5.5) mmol/L Chloride 77 L (96-109) mmol/L Carbon Dioxide 33.9 H (21.6-31.8) mmol/L BUN 39.3 H (9.0-27.0) mg/dL BUN/Creatinine Ratio 61.31 H (12.00-20.00) Ratio Glucose 145 H (70-110) mg/dL POC Glucose (mg/dL) 137 H 150 H (75-99) mg/dL Total Protein 5.5 L (6.2-8.2) g/dL Albumin 3.6 L (3.8-4.9) g/dL 04/30/21 05/01/21 05/01/21 Range/Units 20:31 07:09 07:09 Hgb 11.3 L (12.0-15.0) g/dL Hct 36.1 L (37.2-46.3) % MCH 26.9 L (27.0-32.0) pg MCHC 31.3 L (32.0-37.0) g/dL Immature Gran # 0.12 H (0.00-0.04) X 10*3/uL Neutrophils # 8.55 H (1.80-7.70) X 10*3/uL Lymphocytes # 0.18 L (0.90-5.00) X 10*3/uL Eosinophils # 0 L (0.04-0.35) X 10*3/uL Sodium 122 L (135-145) mmol/L Potassium (3.5-5.5) mmol/L Chloride 82 L (96-109) mmol/L Carbon Dioxide 31.9 H (21.6-31.8) mmol/L BUN 43.0 H (9.0-27.0) mg/dL BUN/Creatinine Ratio 67.72 H (12.00-20.00) Ratio Glucose 136 H (70-110) mg/dL POC Glucose (mg/dL) 158 H (75-99) mg/dL Total Protein (6.2-8.2) g/dL Albumin (3.8-4.9) g/dL 05/01/21 Range/Units 07:22 Hgb (12.0-15.0) g/dL Hct (37.2-46.3) % MCH (27.0-32.0) pg MCHC (32.0-37.0) g/dL Immature Gran # (0.00-0.04) X 10*3/uL Neutrophils # (1.80-7.70) X 10*3/uL Lymphocytes # (0.90-5.00) X 10*3/uL Eosinophils # (0.04-0.35) X 10*3/uL Sodium (135-145) mmol/L Potassium (3.5-5.5) mmol/L Chloride (96-109) mmol/L Carbon Dioxide (21.6-31.8) mmol/L BUN (9.0-27.0) mg/dL BUN/Creatinine Ratio (12.00-20.00) Ratio Glucose (70-110) mg/dL POC Glucose (mg/dL) 141 H (75-99) mg/dL Total Protein (6.2-8.2) g/dL Albumin (3.8-4.9) g/dL Assessment and Plan Assessment: 1. Acute exacerbation COPD - Patient is currently on 2 L O2 per nasal cannula - Continue with Solu-Medrol 40 mg IV every 12 hours along with DuoNeb nebulizer treatments, Perforomist 20 MCG twice a day 2. Critical hyponatremia; sodium level at 120 this morning; patient is on slow IV fluid hydration with normal saline at rate of 50 mL per hour; we will continue with IV fluids and fluid restriction; patient remains on sodium chloride tablets; nephrology is consulted and recommendations are pending 3. Hypertension; lisinopril 20 mg twice a day along with metoprolol 25 mg twice a day 4. Hypothyroidism; levothyroxin 150 MCG daily 5. Chronic hypoxemic/hypercapnic respiratory failure; delayed due to advanced COPD 6. Diabetes mellitus type 2; continue with metformin 500 mg by mouth twice a day; monitor Accu-Cheks before meals and at bedtime with insulin sliding scale DVT prophylaxis; SCDs/subcu heparin CODE STATUS; full code
[2021-05-02 13:56] LABS: Glucose,Whole Blood 240 mg/dL (75-99)
[2021-05-02] MEDS: FOLIC ACID 1 MG TAB PO SCH (14:23)
[2021-05-02] MEDS: THIAMINE 100 MG TAB PO SCH (14:23)
[2021-05-02] MEDS: MULTIVITAMINS, THERA 1 EACH TAB PO SCH (14:23)
[2021-05-02] MEDS: TAMSULOSIN 0.4 MG CAP.ER.24H PO SCH (17:47)
--- NOTE | 2021-05-02 19:00 | P.PN ---
Subjective Progress Note Date: 05/02/21 Principal diagnosis: Acute exacerbation COPD Critical hyponatremia 75-year-old white female patient with past medical history of advanced COPD, on home oxygen, normally wears 4 L of oxygen, baseline FEV1 of 28% of predicted, stage IV COPD, long history of smoking, currently in remission, hypertension, osteoarthritis, hypothyroidism, anxiety, was recently hospitalized for acute exacerbation of COPD in March. Following her hospitalization patient states she was discharged home. She came into the emergency department on 04/27/2021 for evaluation of shortness of breath, she was brought in by ambulance. Patient has had worsening dyspnea for the last 2 days, she reports mild cough with clear sputum production. No chest pain, she reports fevers. She recently just stopped smoking. She is currently on 3 L of oxygen, her pulse ox is 95%, she is afebrile, hemodynamically she is stable. Lung sounds are very diminished bilaterally, patient overall appears to be very fatigued, but does not appear to be in any acute distress. Chest x-ray film has been reviewed, possibly mild pulmonary vascular prominence, and tiny right pleural effusion/or atelectasis. Patient has been given Solu-Medrol 125 mg 1, and was given nebulized treatment. 05/02/2021 Patient is seen and evaluated in room at bedside; discussed with nursing staff; patient had significant urinary retention of almost 1200 mL obtained from straight cath Vital signs are reviewed and stable with a temperature of 98.1, pulse 69, respirations 17 and blood pressure 143/75 Lab review shows sodium of 119, potassium 4.9, BUN/creatinine of 65/0.85 and blood glucose of 184; patient has been placed on strict fluid restriction of 1200 mL per 24 hours; nephrology on board and hyponatremia is deemed multifactorial with poor oral intake is one of the concerns; patient has been started on high protein/calorie shakes; IV fluids have been discontinued; we will monitor electrolytes closely We will start patient on Flomax 0.4 mg for urinary retention; consult urology Objective - Vital Signs Vital signs: Vital Signs Temp 98.1 F 05/02/21 10:04 Pulse 69 05/02/21 10:04 Resp 17 05/02/21 10:04 BP 143/75 05/02/21 10:04 Pulse Ox 99 05/02/21 10:04 Intake & Output 05/01/21 05/02/2121 18:59 06:59 18:59 Intake Total 100 Balance 100 Intake: Oral 100 Other: Voiding Method Diaper Toilet Diaper Diaper # Voids 1 2 - Exam General appearance: Present: average body habitus, cooperative, no acute distress Neck: Present: normal ROM. Absent: lymphadenopathy, rigidity, thyromegaly Carotids: negative: bruit present Thyroid: bilateral: normal size, negative: enlarged, nodule Respiratory: bilateral: CTA, negative: rales, rhonchi, wheezing Cardiovascular: regular; normal: S1, S2 Gastrointestinal: normal bowel sounds, soft. Absent: distended, organomegaly, tenderness Integumentary: Present: normal turgor. Absent: jaundiced, rash, ulcer Neurologic: Present: CNII-XII intact. Absent: focal deficits Musculoskeletal: Present: gait normal, strength equal bilaterally Psychiatric: Present: A&O x's 3, appropriate affect, intact judgment & insight - Labs CBC & Chem 7: 05/01/21 07:09 05/02/21 17:15 Labs: Abnormal Lab Results - Last 24 Hours (Table) 05/01/21 05/01/21 05/02/21 Range/Units 16:51 21:01 06:43 Sodium (137-145) mmol/L Chloride (98-107) mmol/L Carbon Dioxide (22-30) mmol/L BUN (7-17) mg/dL Glucose (74-99) mg/dL POC Glucose (mg/dL) 187 H 232 H 177 H (75-99) mg/dL 05/02/21 05/02/21 Range/Units 07:21 13:54 Sodium 119 L* (137-145) mmol/L Chloride 85 L (98-107) mmol/L Carbon Dioxide 32 H (22-30) mmol/L BUN 65 H (7-17) mg/dL Glucose 184 H (74-99) mg/dL POC Glucose (mg/dL) 240 H (75-99) mg/dL Assessment and Plan Assessment: 1. Acute exacerbation COPD - Patient is currently on 2 L O2 per nasal cannula - Continue with Solu-Medrol 40 mg IV every 12 hours along with DuoNeb nebulizer treatments, Perforomist 20 MCG twice a day 2. Critical hyponatremia; sodium level at 120 this morning; patient is on slow IV fluid hydration with normal saline at rate of 50 mL per hour; we will continue with IV fluids and fluid restriction; patient remains on sodium chloride tablets; nephrology is consulted and recommendations are pending 3. Hypertension; lisinopril 20 mg twice a day along with metoprolol 25 mg twice a day 4. Hypothyroidism; levothyroxin 150 MCG daily 5. Chronic hypoxemic/hypercapnic respiratory failure; delayed due to advanced COPD 6. Diabetes mellitus type 2; continue with metformin 500 mg by mouth twice a day; monitor Accu-Cheks before meals and at bedtime with insulin sliding scale DVT prophylaxis; SCDs/subcu heparin CODE STATUS; full code
[2021-05-02 21:01] LABS: Glucose,Whole Blood 231 mg/dL (75-99)
[2021-05-02] MEDS: methylPREDNISolone SOD SUCCI 40 MG/ML 1 ML VIAL IV SCH (21:59)
[2021-05-03] MEDS: LEVOTHYROXINE 75 MCG TAB PO SCH (05:52)
[2021-05-03] MEDS: BUDESONIDE 1 MG/2 ML NEBU INHALATION SCH ×2 (07:31→19:40)
[2021-05-03] MEDS: IPRATROPIUM-ALBUTEROL 3 ML NEB INHALATION SCH ×4 (07:31→19:40)
[2021-05-03] MEDS: FORMOTEROL FUMARATE 20 MCG/2 ML NEBU INHALATION SCH ×2 (07:31→19:55)
[2021-05-03] MEDS: lisinopriL 20 MG TAB PO SCH ×2 (08:04→21:55)
[2021-05-03] MEDS: MULTIVITAMINS, THERA 1 EACH TAB PO SCH (08:04)
[2021-05-03] MEDS: FOLIC ACID 1 MG TAB PO SCH (08:04)
[2021-05-03] MEDS: methylPREDNISolone SOD SUCCI 40 MG/ML 1 ML VIAL IV SCH ×2 (08:04→21:55)
[2021-05-03] MEDS: metFORMIN 500 MG TAB PO SCH ×3 (08:04→17:00)
[2021-05-03] MEDS: NICOTINE 14MG/24HR PATCH TRANSDERM SCH ×2 (08:04→08:07)
[2021-05-03] MEDS: HEPARIN SODIUM,PORCINE/PF 5,000 UNIT/0.5 ML SYRINGE SQ SCH ×2 (08:04→21:54)
[2021-05-03] MEDS: DOCUSATE 100 MG CAP PO SCH ×2 (08:04→21:55)
[2021-05-03] MEDS: PANTOPRAZOLE 40 MG TABLET PO SCH ×2 (08:04→08:07)
[2021-05-03] MEDS: INSULIN ASPART (NovoLOG) 100 UNIT/ML VIAL SQ SCH ×4 (08:04→21:55)
[2021-05-03] MEDS: METOPROLOL TARTRATE 25 MG TAB PO SCH ×2 (08:04→21:55)
[2021-05-03] MEDS: THIAMINE 100 MG TAB PO SCH (08:04)
[2021-05-03] MEDS: LORATADINE 10 MG TAB PO SCH (08:05)
[2021-05-03] MEDS: guaiFENesin-DM 600/30MG 1 EACH TAB.ER.12H PO SCH ×2 (08:12→22:17)
[2021-05-03] MEDS: SODIUM CHLORIDE TAB 1 GM TAB PO SCH ×2 (08:12→21:55)
[2021-05-03] MEDS: NYSTATIN 100,000 UNIT/ML SUSP 500,000 UNIT/5 ML CUP PO SCH ×4 (08:12→21:55)
--- NOTE | 2021-05-03 09:42 | P.PN ---
Subjective Patient is seen in follow-up for hyponatremia. She was noted to have urinary retention with nearly 2 L drained when Mccauley catheter was initially placed. Oral intake poor. Sodium levels up to 123 as of yesterday evening. Vital signs are stable. HEENT: Head exam is unremarkable. On nasal cannula. LUNGS: Breath sounds decreased. HEART: Rate and Rhythm are regular. ABDOMEN: Soft, no distention. EXTREMITITES: Chronic changes noted. Trace edema. Objective - Vital Signs Vital signs: Vital Signs Temp 98.6 F 05/03/21 07:20 Pulse 64 05/03/21 08:04 Resp 28 H 05/03/21 07:20 BP 124/72 05/03/21 07:20 Pulse Ox 100 05/03/21 07:20 Intake & Output 05/02/21 05/03/21 05/03/21 18:59 06:59 18:59 Output Total 2250 400 Balance -2250 -400 Output: Urine 2250 400 Uretheral (Mccauley) 2250 Other: Voiding Method Diaper Indwelling Catheter Indwelling Catheter # Voids 200 - Labs CBC & Chem 7: 05/01/21 07:09 05/02/21 17:15 Labs: Abnormal Lab Results - Last 24 Hours (Table) 05/02/21 05/02/21 05/02/21 Range/Units 13:54 14:47 17:15 Sodium 123 L (137-145) mmol/L POC Glucose (mg/dL) 240 H (75-99) mg/dL Ur Random Sodium 29 L (40-220) mmol/L 05/02/21 Range/Units 20:59 Sodium (137-145) mmol/L POC Glucose (mg/dL) 231 H (75-99) mg/dL Ur Random Sodium (40-220) mmol/L Assessment and Plan Plan: Assessment: 1. Hyponatremia secondary to urinary retention and poor solute intake. Appears euvolemic. Sodium level 123 yesterday evening. Urine sodium 29 and urine osmolality 574. 2. Benign hypertension. Stable. 3. COPD exacerbation. Plan: 1200 mL fluid restriction. Encouraged oral intake. Added ensure. Maintain sodium chloride tabs. Off IV fluids. Follow-up TSH. Follow-up morning labs. Hold lisinopril for systolic blood pressure less than 120.
[2021-05-03 10:09] LABS: African American GFR (CKD) >90 (>60 ml/min/1.73 sqM); Anion Gap -1 mmol/L; Blood Urea Nitrogen 53 mg/dL (7-17); Calcium 8.7 mg/dL (8.4-10.2); Carbon Dioxide 38 mmol/L (22-30); Chloride 88 mmol/L (98-107); Glucose 232 mg/dL (74-99); Non-African American GFR(CKD) 87 (>60 ml/min/1.73 sqM); Potassium 4.7 mmol/L (3.5-5.1); Sodium 125 mmol/L (137-145)
--- NOTE | 2021-05-03 11:20 | P.GSCN ---
History of Present Illness Consult date: 05/02/21 History of present illness: 75 yo female in [facility] with hyponatremia and altered mental status. We were asked to see for urine retention of over 2 liters. The history is taken from the patient and is questionable due to mental status that appears to wax and wane, She states that she wasnt aware of the retention when she was catheterized. She denies previous problems with voiding. She denies urine retention, hematuria, utis or incontinence, SHe denies having seen a urologist. She denies major back or bowel issues. Review of Systems ROS unobtainable: due to mental status Past Medical History Past Medical History: Heart Failure, COPD, Diabetes Mellitus, Hypertension, Ost eoarthritis (OA), Respiratory Disorder, Thyroid Disorder, Vascular Disorder Additional Past Medical History / Comment(s): Pt recently admitted to [facility] on 10/23/20 with acute exacerbation chronic COPD, acute on chronic hypoxic hypercarbic respiratory failure, acute purulent tracheobronchitis, possible new onset diabetes, hyponatremia/hypovolemic, hyperkalemia, severe constip ation/obstipation. Other hx: Advanced COPD, chronic hypoxic respiratory failure, home oxygen, 2010 pericarditis, former smoker, hypothyroidism, skeletal chest wall pain, chronic anxiety, anemia, PVD, past leg and foot wounds, recent L distal radius fracture/L knee wound sutures since removed, gout, confused at times per spouse and recently has been bedbound. History of Any Multi-Drug Resistant Organisms: None Reported Past Surgical History: Heart Catheterization, Hysterectomy, Tubal Ligation Additional Past Surgical History / Comment(s): 2011 cardiac cath, 2013 cardiac angiogram, colonoscopy/benign polypectomy, anal fistula repair, bilateral cataract removals/lens implants. Past Anesthesia/Blood Transfusion Reactions: Previous Problems w/ Anesthesia, Postoperative Nausea & Vomiting (PONV) Additional Past Anesthesia/Blood Transfusion Reaction / Comm: oxygen was "low" post op, nausea one time Past Psychological History: Anxiety Additional Psychological History / Comment(s): Pt resides with her spouse and their son. Pt had home care thru [facility] but refused them. She has home oxygen, nebulizer and a glucometer. Pt no longer drives, her spouse and son drive. Smoking Status: Former smoker Past Alcohol Use History: None Reported Additional Past Alcohol Use History / Comment(s): Pt started smoking in 1961 and recently quit per spouse. Past Drug Use History: None Reported - Past Family History Mother History Unknown: Yes Family Medical History: Cancer, Thyroid Disorder Additional Family Medical History / Comment(s): Liver Cancer Father History Unknown: Yes Family Medical History: Cancer Medications and Allergies Home Medications Medication Instructions Recorded Confirmed Type Budesonide-Formot 160-4.5 Mcg 2 puff INHALATION RT-BID #1 vial 12/05/18 04/27/21 Rx [Symbicort 160-4.5 Mcg Inhaler] Levothyroxine Sodium [Synthroid] 150 mcg PO DAILY #30 tablet 12/05/18 04/27/21 Rx Albuterol Sulfate [Proair Hfa] 2 puff INHALATION RT-QID PRN 09/25/20 04/27/21 History Loratadine [Claritin] 10 mg PO DAILY 10/23/20 04/27/21 History Acetaminophen Tab [Tylenol] 650 mg PO Q6HR PRN tab 11/14/20 04/27/21 Rx Nystatin 100,000 Unit/ml Susp 5 ml PO QID 03/29/21 04/27/21 History [Mycostatin Oral Susp] lisinopriL [Zestril] 20 mg PO BID 03/29/21 04/27/21 History Metoprolol Tartrate [Lopressor] 25 mg PO BID #60 tab 04/03/21 04/27/21 Rx metFORMIN HCL ER [Glucophage XR] 500 mg PO AC-BID #60 tab 04/03/21 04/27/21 Rx INSULIN ASPART (NovoLOG) [NovoLOG See Protocol SQ ACHS 04/27/21 04/27/21 History (formulary)] predniSONE 5 mg PO SUTUTHSA 04/27/21 04/27/21 History predniSONE 10 mg PO MOWEFR 04/27/21 04/27/21 History Allergies Allergy/AdvReac Type Severity Reaction Status Date / Time bacitracin Allergy Rash/Hives Verified 04/27/21 13:52 [From Neosporin ([id number])] neomycin Allergy Rash/Hives Verified 04/27/21 13:52 [From Neosporin ([id number])] Penicillins Allergy Rash/Hives Verified 04/27/21 13:52 polymyxin B Allergy Rash/Hives Verified 04/27/21 13:52 [From Neosporin ([id number])] trimethoprim [From Polytrim] Allergy Rash/Hives Verified 04/27/21 13:52 levofloxacin [From Levaquin] AdvReac WEAKNESS Verified 04/27/21 13:52 ELDA/POLY/DEX Allergy Rash/Hives Uncoded 04/27/21 13:52 Surgical - Exam Vital Signs Temp Pulse Resp BP Pulse Ox 98.9 F 71 20 176/126 89 L 04/27/21 13:45 04/27/21 13:45 04/27/21 13:45 04/27/21 13:45 04/27/21 13:45 - General well developed, well nourished, no distress - Eyes PERRL - ENT no hearing loss - Neck trachea midline - Respiratory normal respiratory effort - Cardiovascular Rhythm: regular - Abdomen Abdomen: soft, non tender - Genitourinary imdwelling catheter without prolapse or obvious mass. Results - Labs 05/01/21 07:09 05/03/21 08:53 Abnormal Lab Results - Last 24 Hours (Table) 05/02/21 05/02/21 05/02/21 Range/Units 13:54 14:47 17:15 Sodium 123 L (137-145) mmol/L Chloride (98-107) mmol/L Carbon Dioxide (22-30) mmol/L BUN (7-17) mg/dL Glucose (74-99) mg/dL POC Glucose (mg/dL) 240 H (75-99) mg/dL Ur Random Sodium 29 L (40-220) mmol/L 05/02/21 05/03/21 Range/Units 20:59 08:53 Sodium 125 L (137-145) mmol/L Chloride 88 L (98-107) mmol/L Carbon Dioxide 38 H (22-30) mmol/L BUN 53 H (7-17) mg/dL Glucose 232 H (74-99) mg/dL POC Glucose (mg/dL) 231 H (75-99) mg/dL Ur Random Sodium (40-220) mmol/L Diabetes panel 05/02/21 05/03/21 Range/Units 17:15 08:53 Sodium 123 L 125 L (137-145) mmol/L Potassium 4.7 (3.5-5.1) mmol/L Chloride 88 L (98-107) mmol/L Carbon Dioxide 38 H (22-30) mmol/L BUN 53 H (7-17) mg/dL Creatinine 0.62 (0.52-1.04) mg/dL Glucose 232 H (74-99) mg/dL Calcium 8.7 (8.4-10.2) mg/dL Thyroid panel 05/03/21 Range/Units 08:53 TSH 1.230 (0.465-4.680) mIU/L Calcium panel 05/03/21 Range/Units 08:53 Calcium 8.7 (8.4-10.2) mg/dL Pituitary panel 05/02/21 05/03/21 Range/Units 17:15 08:53 Sodium 123 L 125 L (137-145) mmol/L Potassium 4.7 (3.5-5.1) mmol/L Chloride 88 L (98-107) mmol/L Carbon Dioxide 38 H (22-30) mmol/L BUN 53 H (7-17) mg/dL Creatinine 0.62 (0.52-1.04) mg/dL Glucose 232 H (74-99) mg/dL Calcium 8.7 (8.4-10.2) mg/dL TSH 1.230 (0.465-4.680) mIU/L Adrenal panel 05/02/21 05/03/21 Range/Units 17:15 08:53 Sodium 123 L 125 L (137-145) mmol/L Potassium 4.7 (3.5-5.1) mmol/L Chloride 88 L (98-107) mmol/L Carbon Dioxide 38 H (22-30) mmol/L BUN 53 H (7-17) mg/dL Creatinine 0.62 (0.52-1.04) mg/dL Glucose 232 H (74-99) mg/dL Calcium 8.7 (8.4-10.2) mg/dL Assessment and Plan Assessment: Impression: Urine retention, questionable hypotonic bladder. Hyponatremia, diabetes. Plan: I would leave the catheter in place until her medical issues and corrected as well as her mental status. At that time the cath can be removed for a voiding trial. If she is still unable to void as an outpatient she would need urodynamics and a cysto.
--- NOTE | 2021-05-03 11:22 | P.PN ---
Subjective Progress Note Date: 05/03/21 75-year-old white female patient with past medical history of advanced COPD, on home oxygen, normally wears 4 L of oxygen, baseline FEV1 of 28% of predicted, stage IV COPD, long history of smoking, currently in remission, hypertension, osteoarthritis, hypothyroidism, anxiety, was recently hospitalized for acute exacerbation of COPD in March. Following her hospitalization patient states she was discharged home. She came into the emergency department on 04/27/2021 for evaluation of shortness of breath, she was brought in by ambulance. Patient has had worsening dyspnea for the last 2 days, she reports mild cough with clear sputum production. No chest pain, she reports fevers. She recently just stopped smoking. She is currently on 3 L of oxygen, her pulse ox is 95%, she is afebrile, hemodynamically she is stable. Lung sounds are very diminished bilaterally, patient overall appears to be very fatigued, but does not appear to be in any acute distress. Chest x-ray film has been reviewed, possibly mild pulmonary vascular prominence, and tiny right pleural effusion/or atelectasis. Patient has been given Solu-Medrol 125 mg 1, and was given nebulized treatment. She still being worked up in the emergency department. Admission blood work is still pending. On today's evaluation, the patient is being seen for a follow-up on the observation unit. She is essentially the same as yesterday. She is quite short of breath even at rest. She is actively bronchospastic and wheezy and she has marked breath sounds diminished in the lung bases bilaterally. Note that her COPD is advanced. She almost has an end-stage COPD with an FEV1 of 20% of predicted and she is on oxygen at 4 L at home. She is currently on a combination of bronchodilators and steroids. Blood work shows a sodium level of 124 and a serum bicarbonate of 42 with a BUN of 32 and a creatinine of 0.4. COCIV 19 testing was negative. On today's evaluation of 04/29/2021, the patient is feeling slightly better. Slightly less short of breath compared to yesterday. He treated with a combination of bronchodilators and steroids and antibiotics and the patient is being treated for an acute COPD exacerbation. She has advanced end-stage COPD with an FEV1 of 20% of predicted. Her Covid 19 testing was negative. Blood work today, white cell count of 13.6 with a hemoglobin of 11. Sodium is at 122 which is chronically low. Chloride is a 79. Is a 36 with a creatinine of 0.6. 04/30/2021, the patient is being seen for a follow-up. She is resting comfortably in bed. She has no specific complaints. The patient thinks that she is doing slightly better compared to yesterday. She remains on bronchodilators. She remains on steroids. Her oral intake is minimal. I noted a further drop in the sodium level which is down to 120 with a chloride level of 77 and a BUN is currently at 39 with a creatinine of 0.6. Based on that, the patient was started on a normal saline infusion rate of 50. Her blood sugar fr today is 137. No chest pain. No angina. No altered mentation. No signs of any CO2 narcosis. No altered mentation related to her underlying hyponatremia which is essentially chronic 05/01/2021, I see the patient slightly more sleepy. Yet she arouses later stated she was feeling well. She has no specific complaints. She continues to receive treatment for COPD exacerbation. The patient was also noted to have significant hyponatremia. She was started on normal saline which is currently running at the rate of 40 mL an hour.The sodium level is improved compared to yesterday and currently is up to 122. Potassium level is at 5.2. Mean is at 43 with a creatinine of 0.6. White cell count is at 9.3 with hemoglobin 11.3. The patient has an incentive spirometer at the bedside and she is using periodically. She is resting comfortably in bed. Her breathing is nonlabored. Occasional congested cough. No stiffness sputum production. No signs of any CO2 narcosis. 05/02/2021, the patient continues to have issues with her sodium level which is down to 119. This is obviously of concern. The patient was thought to have hypovolemic hypochloremic hyponatremia. She was started normal saline infusion and the patient had a further drop in his sodium level. Based on that, this was discontinued. She remains on bronchodilators and steroids regarding her COPD exacerbation. She is currently being subjected to fluid restriction. No signs of any CO2 narcosis. No seizure activity. No other significant events overnight. She remains on bronchodilators and steroids for now. 05/03/2021, the patient is being seen for a follow-up. I'm glad to report to the sodium level is finally in the right direction and is currently up to 125. She is doing well. She reports that the breathing is improving. She is not having any significant shortness of breath. Feeding is always an issue. I think the patient needs help with feeding. She has poor denture. She has adequate swallow. She is not aspirating any fluid material. This point in time. Sodium level is at 125 with a chloride level of 88 and a potassium level of 4.7. She remains on bronchodilators and she remains on steroids. She has a congested cough. Her cough is weak. Unable to bring up any sputum. Objective - Vital Signs Vital signs: Vital Signs Temp 98.6 F 05/03/21 07:20 Pulse 64 05/03/21 11:17 Resp 28 H 05/03/21 07:20 BP 124/72 05/03/21 07:20 Pulse Ox 100 05/03/21 07:20 Intake & Output 05/02/21 05/03/21 05/03/21 18:59 06:59 18:59 Output Total 2250 400 Balance -2250 -400 Output: Urine 2250 400 Uretheral (Mccauley) 2250 Other: Voiding Method Diaper Indwelling Catheter Indwelling Catheter # Voids 200 - Exam GENERAL EXAM: Alert, pleasant, 75-year-old frail looking white female, looks older than stated age, currently on 4 L of oxygen, thin built comfortable in no apparent distress. Appears somewhat disheveled and poorly kept, with spilled food and drink stains on clothes HEAD: Normocephalic/atraumatic. EYES: Normal reaction of pupils, equal size. Conjunctiva pink, sclera white. NOSE: Clear with pink turbinates. THROAT: No erythema or exudates. NECK: No masses, no JVD, no thyroid enlargement, no adenopathy. CHEST: No chest wall deformity. Symmetrical expansion. LUNGS: Diminished breath sounds equal air entry with end expiratory wheezes CVS: Regular rate and rhythm, normal S1 and S2, no gallops, no murmurs, no rubs ABDOMEN: Soft, nontender. No hepatosplenomegaly, normal bowel sounds, no guarding or rigidity. EXTREMITIES: No clubbing, no edema, no cyanosis, 2+ pulses and upper and lower extremities. MUSCULOSKELETAL: Muscle strength and tone normal. SPINE: No scoliosis or deformity SKIN: No rashes CENTRAL NERVOUS SYSTEM: Alert and oriented -3. No focal deficits, tone is normal in all 4 extremities. PSYCHIATRIC: Alert and oriented -3. Appropriate affect. Intact judgment and insight. - Labs CBC & Chem 7: 05/01/21 07:09 05/03/21 08:53 Labs: Abnormal Lab Results - Last 24 Hours (Table) 05/02/21 05/02/21 05/02/21 Range/Units 13:54 14:47 17:15 Sodium 123 L (137-145) mmol/L Chloride (98-107) mmol/L Carbon Dioxide (22-30) mmol/L BUN (7-17) mg/dL Glucose (74-99) mg/dL POC Glucose (mg/dL) 240 H (75-99) mg/dL Ur Random Sodium 29 L (40-220) mmol/L 05/02/21 05/03/21 Range/Units 20:59 08:53 Sodium 125 L (137-145) mmol/L Chloride 88 L (98-107) mmol/L Carbon Dioxide 38 H (22-30) mmol/L BUN 53 H (7-17) mg/dL Glucose 232 H (74-99) mg/dL POC Glucose (mg/dL) 231 H (75-99) mg/dL Ur Random Sodium (40-220) mmol/L Assessment and Plan Plan: #1. Acute exacerbation of COPD. COVID 19 PCR pending, CXR shows mild pulm vascular prominence, possible tiny right pleural effusion or atelectasis, cl inically improving, she is currently on 2 L about 2 by nasal cannula #2. Hyponatremia, and the sodium load is improving is up to 125, consider underlying SIADH, #2. The patient has advanced and end-stage COPD with chronic hypoxemic and hypercapnic respiratory failure related to advanced COPD, stage IV, with baseline FEV1 of 28% of predicted, oxygen at 3 L of O2 by nasal cannula. #3. Chronic nicotine dependence, just recently quit #4. Hypertension #5. Osteoarthritis #6. Hypothyroidism #7. Anxiety #8. Frequent falls #9. History of fracture in the left upper extremity #10. multiple areas of skin laceration largest in the left upper lower extremity Plan: Clinically she is improving. She has no new complaints. Fluid restriction Sodium level is up to 125 Monitor sodium level very closely. Nephrology has been consult on the case She is not showing any signs of CO2 narcosis. We'll continue the same treatment for now. Slightly improved compared to yesterday terms of her COPD exacerbation we'll continue same treatment We'll continue IV Solu-Medrol e 40 mg every 12 hours Nebulized bronchodilators, Pulmicort, Perforomist, DuoNeb We'll resume home medications COVID 19 PCR was negative Mucinex DM twice a day heparin subcu for DVT prophylaxis Provide the patient incentive spirometer Further recommendation to follow Long-term prognosis poor baseline above-mentioned comorbidities.will be higher feeling today
[2021-05-03 11:37] LABS: Glucose,Whole Blood 288 mg/dL (75-99)
[2021-05-03 13:07] LABS: Basophils % (A) 0 %; Eosinophils % (A) 0 %; HCT 36.4 % (34.0-46.0); HGB 11.2 gm/dL (11.4-16.0); Hypochromasia Slight; Lymphocytes # (A) 0.5 k/uL (1.0-4.8); Lymphocytes % (A) 4 %; MCH 28.2 pg (25.0-35.0); MCHC 30.8 g/dL (31.0-37.0); MCV 91.7 fL (80.0-100.0); Mean Platelet Volume 8.3; Monocytes # (A) 0.4 k/uL (0-1.0); Monocytes % (A) 4 %; Neutrophils # (A) 9.4 k/uL (1.3-7.7); Neutrophils % (A) 90 %; Platelet Count 192 k/uL (150-450); RBC 3.97 m/uL (3.80-5.40); RDW 14.6 % (11.5-15.5); WBC 10.4 k/uL (3.8-10.6)
[2021-05-03] MEDS: TAMSULOSIN 0.4 MG CAP.ER.24H PO SCH (17:00)
--- NOTE | 2021-05-03 19:05 | P.PN ---
Subjective Progress Note Date: 05/03/21 Principal diagnosis: Acute exacerbation COPD Critical hyponatremia 75-year-old white female patient with past medical history of advanced COPD, on home oxygen, normally wears 4 L of oxygen, baseline FEV1 of 28% of predicted, stage IV COPD, long history of smoking, currently in remission, hypertension, osteoarthritis, hypothyroidism, anxiety, was recently hospitalized for acute exacerbation of COPD in March. Following her hospitalization patient states she was discharged home. She came into the emergency department on 04/27/2021 for evaluation of shortness of breath, she was brought in by ambulance. Patient has had worsening dyspnea for the last 2 days, she reports mild cough with clear sputum production. No chest pain, she reports fevers. She recently just stopped smoking. She is currently on 3 L of oxygen, her pulse ox is 95%, she is afebrile, hemodynamically she is stable. Lung sounds are very diminished bilaterally, patient overall appears to be very fatigued, but does not appear to be in any acute distress. Chest x-ray film has been reviewed, possibly mild pulmonary vascular prominence, and tiny right pleural effusion/or atelectasis. Patient has been given Solu-Medrol 125 mg 1, and was given nebulized treatment. 05/02/2021 Patient is seen and evaluated in room at bedside; discussed with nursing staff; patient had significant urinary retention of almost 1200 mL obtained from straight cath Vital signs are reviewed and stable with a temperature of 98.1, pulse 69, respirations 17 and blood pressure 143/75 Lab review shows sodium of 119, potassium 4.9, BUN/creatinine of 65/0.85 and blood glucose of 184; patient has been placed on strict fluid restriction of 1200 mL per 24 hours; nephrology on board and hyponatremia is deemed multifactorial with poor oral intake is one of the concerns; patient has been started on high protein/calorie shakes; IV fluids have been discontinued; we will monitor electrolytes closely We will start patient on Flomax 0.4 mg for urinary retention; consult urology 05/03/2021 Patient is seen and evaluated with family members at bedside; patient is more awake and alert and responsive this morning; denying any specific complaints and reports IMPROVEMENT IN SYMPTOMS; improved oral intake Vital signs are stable temperature 98.6, pulse 64, respiration 28 and blood pressure 124/72 O2 saturation of 100% on 2 L Laboratory review shows WBC 10.4, hemoglobin 11.2, hematocrit 36.4 and platelet count of 192, sodium 125 which is improved from 119 yesterday, potassium 4.7, the urine/creatinine of 53/0.62 and blood glucoses ranging between 232-288 Nephrology on board and recommending high protein and high calorie diet and improved oral intake; pulmonary recommending to continue with steroids in form of Solu-Medrol 40 mg IV every 12 hours and bronchodilator nebulizer treatment along with Pulmicort and Perforomist Objective - Vital Signs Vital signs: Vital Signs Temp 98.6 F 05/03/21 07:20 Pulse 64 05/03/21 11:17 Resp 28 H 05/03/21 07:20 BP 124/72 05/03/21 07:20 Pulse Ox 100 05/03/21 07:20 Intake & Output 05/02/21 05/03/21 05/03/21 18:59 06:59 18:59 Output Total 2250 400 Balance -2250 -400 Output: Urine 2250 400 Uretheral (Mccauley) 2250 Other: Voiding Method Diaper Indwelling Catheter Indwelling Catheter # Voids 200 - Exam General appearance: Present: average body habitus, cooperative, no acute distress Neck: Present: normal ROM. Absent: lymphadenopathy, rigidity, thyromegaly Carotids: negative: bruit present Thyroid: bilateral: normal size, negative: enlarged, nodule Respiratory: bilateral: CTA, negative: rales, rhonchi, wheezing Cardiovascular: regular; normal: S1, S2 Gastrointestinal: normal bowel sounds, soft. Absent: distended, organomegaly, tenderness Integumentary: Present: normal turgor. Absent: jaundiced, rash, ulcer Neurologic: Present: CNII-XII intact. Absent: focal deficits Musculoskeletal: Present: gait normal, strength equal bilaterally Psychiatric: Present: A&O x's 3, appropriate affect, intact judgment & insight - Labs CBC & Chem 7: 05/03/21 08:53 05/03/21 08:53 Labs: Abnormal Lab Results - Last 24 Hours (Table) 05/02/21 05/02/21 05/02/21 Range/Units 13:54 14:47 17:15 Sodium 123 L (137-145) mmol/L Chloride (98-107) mmol/L Carbon Dioxide (22-30) mmol/L BUN (7-17) mg/dL Glucose (74-99) mg/dL POC Glucose (mg/dL) 240 H (75-99) mg/dL Ur Random Sodium 29 L (40-220) mmol/L 05/02/21 05/03/21 05/03/21 Range/Units 20:59 08:53 11:31 Sodium 125 L (137-145) mmol/L Chloride 88 L (98-107) mmol/L Carbon Dioxide 38 H (22-30) mmol/L BUN 53 H (7-17) mg/dL Glucose 232 H (74-99) mg/dL POC Glucose (mg/dL) 231 H 288 H (75-99) mg/dL Ur Random Sodium (40-220) mmol/L Assessment and Plan Assessment: 1. Acute exacerbation COPD - Patient is currently on 2 L O2 per nasal cannula - Continue with Solu-Medrol 40 mg IV every 12 hours along with DuoNeb nebulizer treatments, Perforomist 20 MCG twice a day 2. Critical hyponatremia; sodium level at 120 this morning; patient is on slow IV fluid hydration with normal saline at rate of 50 mL per hour; we will continue with IV fluids and fluid restriction; patient remains on sodium chloride tablets; nephrology is consulted and recommendations are pending 3. Hypertension; lisinopril 20 mg twice a day along with metoprolol 25 mg twice a day 4. Hypothyroidism; levothyroxin 150 MCG daily 5. Chronic hypoxemic/hypercapnic respiratory failure; delayed due to advanced COPD 6. Diabetes mellitus type 2; continue with metformin 500 mg by mouth twice a day; monitor Accu-Cheks before meals and at bedtime with insulin sliding scale DVT prophylaxis; SCDs/subcu heparin CODE STATUS; full code
[2021-05-03 21:05] LABS: Glucose,Whole Blood 104 mg/dL (75-99)
[2021-05-04] MEDS: LEVOTHYROXINE 75 MCG TAB PO SCH (05:38)
[2021-05-04] MEDS: INSULIN ASPART (NovoLOG) 100 UNIT/ML VIAL SQ SCH ×4 (08:37→21:04)
[2021-05-04] MEDS: METOPROLOL TARTRATE 25 MG TAB PO SCH ×2 (08:38→21:04)
[2021-05-04] MEDS: metFORMIN 500 MG TAB PO SCH ×2 (08:38→17:37)
[2021-05-04] MEDS: lisinopriL 20 MG TAB PO SCH ×2 (08:38→21:04)
[2021-05-04] MEDS: PANTOPRAZOLE 40 MG TABLET PO SCH (08:38)
[2021-05-04] MEDS: LORATADINE 10 MG TAB PO SCH (08:38)
[2021-05-04] MEDS: methylPREDNISolone SOD SUCCI 40 MG/ML 1 ML VIAL IV SCH ×2 (08:38→21:04)
[2021-05-04] MEDS: DOCUSATE 100 MG CAP PO SCH ×2 (08:38→21:04)
[2021-05-04] MEDS: SODIUM CHLORIDE TAB 1 GM TAB PO SCH ×2 (08:39→21:04)
[2021-05-04] MEDS: NYSTATIN 100,000 UNIT/ML SUSP 500,000 UNIT/5 ML CUP PO SCH ×4 (08:39→21:05)
[2021-05-04] MEDS: HEPARIN SODIUM,PORCINE/PF 5,000 UNIT/0.5 ML SYRINGE SQ SCH ×2 (08:39→21:04)
[2021-05-04] MEDS: guaiFENesin-DM 600/30MG 1 EACH TAB.ER.12H PO SCH ×2 (08:39→21:04)
[2021-05-04] MEDS: NICOTINE 14MG/24HR PATCH TRANSDERM SCH (08:39)
[2021-05-04 08:49] LABS: African American GFR (CKD) >90 (>60 ml/min/1.73 sqM); Anion Gap -2 mmol/L; Blood Urea Nitrogen 42 mg/dL (7-17); Carbon Dioxide 40 mmol/L (22-30); Chloride 87 mmol/L (98-107); Glucose 196 mg/dL (74-99); Magnesium 1.9 mg/dL (1.6-2.3); Non-African American GFR(CKD) >90 (>60 ml/min/1.73 sqM); Potassium 5.7 mmol/L (3.5-5.1); Sodium 125 mmol/L (137-145)
[2021-05-04] MEDS: FORMOTEROL FUMARATE 20 MCG/2 ML NEBU INHALATION SCH ×2 (08:52→21:33)
[2021-05-04] MEDS: BUDESONIDE 1 MG/2 ML NEBU INHALATION SCH ×2 (08:52→21:33)
[2021-05-04] MEDS: IPRATROPIUM-ALBUTEROL 3 ML NEB INHALATION SCH ×4 (08:52→21:33)
[2021-05-04 11:02] LABS: Basophils # (A) 0.01 X 10*3/uL (0.00-0.10); Basophils % (A) 0.1 %; Eosinophils # (A) 0.01 X 10*3/uL (0.04-0.35); Eosinophils % (A) 0.1 %; HCT 36.5 % (37.2-46.3); HGB 11.2 g/dL (12.0-15.0); Lymphocytes # (A) 0.59 X 10*3/uL (0.90-5.00); Lymphocytes % (A) 4.9 %; MCH 27.5 pg (27.0-32.0); MCHC 30.7 g/dL (32.0-37.0); MCV 89.7 fL (80.0-97.0); Monocytes # (A) 0.58 X 10*3/uL (0.20-1.00); Monocytes % (A) 4.8 %; Neutrophils # (A) 10.81 X 10*3/uL (1.80-7.70); Neutrophils % (A) 89.5 %; Platelet Count 190 X 10*3/uL (140-440); RBC 4.07 X 10*6/uL (4.10-5.20); RDW 14.8 % (11.5-14.5); WBC 12.07 X 10*3/uL (4.50-10.00)
[2021-05-04 11:35] LABS: Glucose,Whole Blood 175 mg/dL (75-99)
[2021-05-04] MEDS ORDERED: FUROSEMIDE 10 MG/ML 4 ML VIAL IV STA (11:54)
[2021-05-04] MEDS: THIAMINE 100 MG TAB PO SCH (12:00)
[2021-05-04] MEDS: MULTIVITAMINS, THERA 1 EACH TAB PO SCH (12:00)
[2021-05-04] MEDS: FOLIC ACID 1 MG TAB PO SCH (12:00)
[2021-05-04] MEDS ORDERED: SODIUM POLYSTYRENE SULFONATE 15 GM/60 ML BOTTLE PO STA (13:30)
--- NOTE | 2021-05-04 14:36 | PN ---
PROGRESS NOTE The patient is seen for followup for hyponatremia. Her sodium has been staying at 125. On initial admission it was 124, decreased down to 119 and now at 125. The patient is maintained on oral sodium chloride tablets. Her blood pressure has not been significantly elevated except for last reading today with 160/73, previously 124-138 mmHg. Urine osmolality was high at 574. This morning potassium was elevated at 5.7. Blood sugar was high at 196. EXAMINATION: Today blood pressure was 160/73, heart rate 67 per minute. Patient is afebrile. Examination of the heart S1, S2. Examination of the lungs, decreased breath sounds at the bases. Abdomen is soft, nontender. Examination of lower extremities shows edema 1+ bilaterally. GANG TAILER exam grossly intact. LAB: Show sodium 125, potassium 5.7, chloride 87, BUN 42, creatinine 0.5, hemoglobin 11.2 g/dL. ASSESSMENT: 1. Hyponatremia currently appears to be hypervolemic, maintained on sodium chloride tabs. Sodium staying about the same. Currently with edema and blood pressure occasionally on the higher side. I will give a dose of Lasix today and patient is encouraged to increase oral intake. If her sodium does not increase further, she will get a dose of tolvaptan. 2. Urine retention status post Mccauley catheter placement. 3. Chronic obstructive pulmonary disease exacerbation. 4. Benign hypertension, currently stable. PLAN: Continue with fluid restriction. Continue with sodium chloride tabs unless blood pressure remains elevated and we can DC that. I will give a dose of Lasix today and give tolvaptan if sodium not improved and patient remains hypertensive. MMODL / IJN: [id number] /
[2021-05-04 15:05] VITALS: BMI 22.3
[2021-05-04] MEDS ORDERED: SODIUM CHLORIDE 0.9% 1,000 ML IV SCH (15:30)
--- NOTE | 2021-05-04 16:30 | PN ---
PROGRESS NOTE DATE OF SERVICE: 05/04/2021 This 75 -year-old woman was admitted with COPD acute exacerbation, also complained of generalized weakness. ECF rehab is being planned at this time but apparently the patient had some retention. Mccauley was inserted. No chest pain. No palpitations. No fever. Patient continues to be mildly confused. PHYSICAL EXAMINATION: Alert and oriented x3. Pulse 70. Blood pressure normal. Respirations 18. Temperature normal. Pulse ox 94% on 3 L. HEENT: Conjunctivae normal. Neck: No JVD. Cardiovascular: S1, S2 muffled. Respiratory: Breath sounds diminished in the bases. A few scattered rhonchi. Abdomen: Soft. Nontender. Legs no edema. No swelling. Nervous system: No focal deficits. LAB STUDIES: WBC 12.7, hemoglobin 11.2, sodium 127, potassium 5.7. ASSESSMENT: 1. Chronic obstructive pulmonary disease exacerbation with acute hypoxic hypercarbic respiratory failure with acute purulent tracheobronchitis. 2. Change in mental status, acute metabolic encephalopathy multifactorial. 3. Urinary retention on Mccauley catheter. 4. Hyponatremia. 5. Hyperkalemia. 6. Diabetes mellitus, type 2. 7. Elevated serum procalcitonin. 8. History of congestive heart failure with acute exacerbation. 9. Diabetes mellitus, type 2. 10.Hypertension. 11.Degenerative joint disease. 12.Hypothyroidism. 13.New onset diabetes type 2 recently. 14.Severe constipation, obstipation. 15.Chronic hypoxic respiratory failure. RECOMMENDATIONS AND DISCUSSION: In this 75-year-old woman who presented with multiple complex medical issues, we will monitor the patient closely, continue the steroids. Continue with bronchodilators. Repeat labs will be ordered in the morning. PT/OT evaluation, possible ECF rehab. We will also obtain UA also because it has apparently not been done before. Also dose of Kayexalate. MMODL / IJN: [id number] /
[2021-05-04 17:17] LABS: Glucose,Whole Blood 186 mg/dL (75-99)
[2021-05-04] MEDS: TAMSULOSIN 0.4 MG CAP.ER.24H PO SCH (17:37)
--- NOTE | 2021-05-04 18:05 | P.PN ---
Subjective Progress Note Date: 05/04/21 Principal diagnosis: Exacerbation of COPD, hyponatremia 75-year-old white female patient with past medical history of advanced COPD, on home oxygen, normally wears 4 L of oxygen, baseline FEV1 of 28% of predicted, stage IV COPD, long history of smoking, currently in remission, hypertension, osteoarthritis, hypothyroidism, anxiety, was recently hospitalized for acute exacerbation of COPD in March. Following her hospitalization patient states she was discharged home. She came into the emergency department on 04/27/2021 for evaluation of shortness of breath, she was brought in by ambulance. Patient has had worsening dyspnea for the last 2 days, she reports mild cough with clear sputum production. No chest pain, she reports fevers. She recently just stopped smoking. She is currently on 3 L of oxygen, her pulse ox is 95%, she is afebrile, hemodynamically she is stable. Lung sounds are very diminished bilaterally, patient overall appears to be very fatigued, but does not appear to be in any acute distress. Chest x-ray film has been reviewed, possibly mild pul monary vascular prominence, and tiny right pleural effusion/or atelectasis. Patient has been given Solu-Medrol 125 mg 1, and was given nebulized treatment. She still being worked up in the emergency department. Admission blood work is still pending. On today's evaluation, the patient is being seen for a follow-up on the observation unit. She is essentially the same as yesterday. She is quite short of breath even at rest. She is actively bronchospastic and wheezy and she has marked breath sounds diminished in the lung bases bilaterally. Note that her COPD is advanced. She almost has an end-stage COPD with an FEV1 of 20% of predicted and she is on oxygen at 4 L at home. She is currently on a combination of bronchodilators and steroids. Blood work shows a sodium level of 124 and a serum bicarbonate of 42 with a BUN of 32 and a creatinine of 0.4. COCIV 19 testing was negative. On today's evaluation of 04/29/2021, the patient is feeling slightly better. Slightly less short of breath compared to yesterday. He treated with a combination of bronchodilators and steroids and antibiotics and the patient is being treated for an acute COPD exacerbation. She has advanced end-stage COPD with an FEV1 of 20% of predicted. Her Covid 19 testing was negative. Blood work today, white cell count of 13.6 with a hemoglobin of 11. Sodium is at 122 which is chronically low. Chloride is a 79. Is a 36 with a creatinine of 0.6. 04/30/2021, the patient is being seen for a follow-up. She is resting comfortably in bed. She has no specific complaints. The patient thinks that she is doing slightly better compared to yesterday. She remains on bronchodilators. She remains on steroids. Her oral intake is minimal. I noted a further drop in the sodium level which is down to 120 with a chloride level of 77 and a BUN is currently at 39 with a creatinine of 0.6. Based on that, the patient was started on a normal saline infusion rate of 50. Her blood sugar from today is 137. No chest pain. No angina. No altered mentation. No signs of any CO2 narcosis. No altered mentation related to her underlying hyponatremia which is essentially chronic 05/01/2021, I see the patient slightly more sleepy. Yet she arouses later stated she was feeling well. She has no specific complaints. She continues to receive treatment for COPD exacerbation. The patient was also noted to have significant hyponatremia. She was started on normal saline which is currently running at the rate of 40 mL an hour.The sodium level is improved compared to yesterday and currently is up to 122. Potassium level is at 5.2. Mean is at 43 with a creatinine of 0.6. White cell count is at 9.3 with hemoglobin 11.3. The patient has an incentive spirometer at the bedside and she is using periodic ally. She is resting comfortably in bed. Her breathing is nonlabored. Occasional congested cough. No stiffness sputum production. No signs of any CO2 narcosis. 05/02/2021, the patient continues to have issues with her sodium level which is down to 119. This is obviously of concern. The patient was thought to have hypovolemic hypochloremic hyponatremia. She was started normal saline infusion and the patient had a further drop in his sodium level. Based on that, this was discontinued. She remains on bronchodilators and steroids regarding her COPD exacerbation. She is currently being subjected to fluid restriction. No signs of any CO2 narcosis. No seizure activity. No other significant events overnight. She remains on bronchodilators and steroids for now. 05/03/2021, the patient is being seen for a follow-up. I'm glad to report to the sodium level is finally in the right direction and is currently up to 125. She is doing well. She reports that the breathing is improving. She is not having any significant shortness of breath. Feeding is always an issue. I think the patient needs help with feeding. She has poor denture. She has adequate swallow. She is not aspirating any fluid material. This point in time. Sodium level is at 125 with a chloride level of 88 and a potassium level of 4.7. She remains on bronchodilators and she remains on steroids. She has a congested cough. Her cough is weak. Unable to bring up any sputum. On 05/04/2021 patient is seen in follow-up. She is very weak and lethargic, but no acute distress. She is currently on 3 L per nasal cannula pulse ox 95%, afebrile, hemodynamically she has been stable. She's had no acute events overnight. She remains on 800 mL fluid restriction per nephrology for persistently low sodium level, and today's labs reveal sodium of 125, potassium is 5.7, chloride is 87, CO2 is 40, B1 is 42, creatinine 0.5, her white blood cell count 12.07, hemoglobin is 11.2, patient's urine random sodium was 29, and urine osmolality was 574. Urology saw the patient in consultation and patient had urine retention of over 2 years. Indwelling Mccauley catheter remains in place, draining urine. Patient currently remains on Rocephin, IV Solu-Medrol 40 mg every 12 hours. Objective - Vital Signs Vital signs: Vital Signs Temp 97.4 F L 05/04/21 14:00 Pulse 63 05/04/21 14:00 Resp 17 05/04/21 14:00 BP 160/73 05/04/21 08:00 Pulse Ox 95 05/04/21 14:00 Intake & Output 05/03/21 05/04/21 05/04/21 18:59 06:59 18:59 Intake Total 220 Output Total 380 Balance 220 -380 Weight 58.967 kg Intake: Oral 220 Output: Urine 380 Other: Voiding Method Indwelling Catheter Indwelling Catheter Indwelling Catheter # Voids 1,000 - Exam GENERAL EXAM: Particularly weak 75-year-old frail looking white female, looks older than stated age, currently on 4 L of oxygen, thin built comfortable in no apparent distress. Appears somewhat disheveled and poorly kept, with spilled food and drink stains on clothes HEAD: Normocephalic/atraumatic. EYES: Normal reaction of pupils, equal size. Conjunctiva pink, sclera white. NOSE: Clear with pink turbinates. THROAT: No erythema or exudates. NECK: No masses, no JVD, no thyroid enlargement, no adenopathy. CHEST: No chest wall deformity. Symmetrical expansion. LUNGS: Diminished breath sounds equal air entry with end expiratory wheezes CVS: Regular rate and rhythm, normal S1 and S2, no gallops, no murmurs, no rubs ABDOMEN: Soft, nontender. No hepatosplenomegaly, normal bowel sounds, no guarding or rigidity. EXTREMITIES: No clubbing, no edema, no cyanosis, 2+ pulses and upper and lower extremities. MUSCULOSKELETAL: Muscle strength and tone normal. SPINE: No scoliosis or deformity SKIN: No rashes CENTRAL NERVOUS SYSTEM: lethargic and weak. No focal deficits, tone is normal in all 4 extremities. - Labs CBC & Chem 7: 05/04/21 07:51 05/04/21 07:51 Labs: Abnormal Lab Results - Last 24 Hours (Table) 05/03/21 05/04/21 05/04/21 Range/Units 21:03 07:51 07:51 WBC 12.07 H (4.50-10.00) X 10*3/uL RBC 4.07 L (4.10-5.20) X 10*6/uL Hgb 11.2 L (12.0-15.0) g/dL Hct 36.5 L (37.2-46.3) % MCHC 30.7 L (32.0-37.0) g/dL RDW 14.8 H (11.5-14.5) % Immature Gran # 0.07 H (0.00-0.04) X 10*3/uL Neutrophils # 10.81 H (1.80-7.70) X 10*3/uL Lymphocytes # 0.59 L (0.90-5.00) X 10*3/uL Eosinophils # 0.01 L (0.04-0.35) X 10*3/uL Sodium 125 L (137-145) mmol/L Potassium 5.7 H (3.5-5.1) mmol/L Chloride 87 L (98-107) mmol/L Carbon Dioxide 40 H (22-30) mmol/L BUN 42 H (7-17) mg/dL Creatinine 0.50 L (0.52-1.04) mg/dL Glucose 196 H (74-99) mg/dL POC Glucose (mg/dL) 104 H (75-99) mg/dL 05/04/21 05/04/21 Range/Units 11:24 17:15 WBC (4.50-10.00) X 10*3/uL RBC (4.10-5.20) X 10*6/uL Hgb (12.0-15.0) g/dL Hct (37.2-46.3) % MCHC (32.0-37.0) g/dL RDW (11.5-14.5) % Immature Gran # (0.00-0.04) X 10*3/uL Neutrophils # (1.80-7.70) X 10*3/uL Lymphocytes # (0.90-5.00) X 10*3/uL Eosinophils # (0.04-0.35) X 10*3/uL Sodium (137-145) mmol/L Potassium (3.5-5.1) mmol/L Chloride (98-107) mmol/L Carbon Dioxide (22-30) mmol/L BUN (7-17) mg/dL Creatinine (0.52-1.04) mg/dL Glucose (74-99) mg/dL POC Glucose (mg/dL) 175 H 186 H (75-99) mg/dL Assessment and Plan Plan: #1. Acute exacerbation of COPD. COVID 19 PCR pending, CXR shows mild pulm vascular prominence, possible tiny right pleural effusion or atelectasis #2. Hyponatremia, and her serum sodium his persistently low at 125, consider possibility of dehydration #3. The patient has advanced and end-stage COPD with chronic hypoxemic and hypercapnic respiratory failure related to advanced COPD, stage IV, with baseline FEV1 of 28% of predicted, oxygen at 4 L of O2 by nasal cannula. #4. Chronic nicotine dependence, just recently quit #5. Hypertension #6. Osteoarthritis #7. Hypothyroidism #8. Anxiety #9. Frequent falls #10. History of fracture in the left upper extremity #11. multiple areas of skin laceration largest in the left upper lower extremity Plan: Continue current medical treatment Continue current dose of IV steroids, and patient is on 40 mg of Solu-Medrol every 12 hours Continue bronchodilators Maintaining aspiration precautions Would recommend gentle IV hydration in the form of 0.9 normal saline at a rate of 50 ML per hour Clinically patient appears to be dehydrated Continue free water restriction per nephrology recommendations We'll obtain follow-up BMP tomorrow Recommend establishing CODE STATUS Overall prognosis is guarded I performed a history & physical examination of the patient and discussed their management with my nurse practitioner, Galina Mar. I reviewed the nurse practitioner's note and agree with the documented findings and plan of care. Lung sounds are positive for diminished breath sound throughout the lung bauman. The findings and the impression was discussed with the patient. I attest to the documentation by the nurse practitioner. Time with Patient: Less than 30
[2021-05-04 19:09] LABS: Potassium 4.7 mmol/L (3.5-5.1)
[2021-05-04 19:51] LABS: Glucose,Whole Blood 147 mg/dL (75-99)
[2021-05-05] MEDS: LEVOTHYROXINE 75 MCG TAB PO SCH (05:52)
[2021-05-05 06:46] LABS: Appearance,Urine Clear (Clear); Bacteria,Urine Rare /hpf; Bilirubin,Urine Negative (Negative); Blood,Urine Negative (Negative); Color,Urine Yellow; Glucose,Urine (UA) Negative (Negative); Ketones,Urine Negative (Negative); Leukocyte Esterase,Urine Moderate (Negative); Nitrite,Urine Negative (Negative); Protein,Urine Trace (Negative); RBC,Urine 1 /hpf (0-5); Specific Gravity,Urine 1.018 (1.001-1.035); Urobilinogen,Urine <2.0 mg/dL (<2.0); WBC,Urine 59 /hpf (0-5)
[2021-05-05 07:18] LABS: Glucose,Whole Blood 130 mg/dL (75-99)
[2021-05-05] MEDS: INSULIN ASPART (NovoLOG) 100 UNIT/ML VIAL SQ SCH ×4 (07:31→21:56)
[2021-05-05] MEDS: LORATADINE 10 MG TAB PO SCH (07:50)
[2021-05-05] MEDS: methylPREDNISolone SOD SUCCI 40 MG/ML 1 ML VIAL IV SCH ×2 (07:50→21:55)
[2021-05-05] MEDS: metFORMIN 500 MG TAB PO SCH ×2 (07:50→17:42)
[2021-05-05] MEDS: NICOTINE 14MG/24HR PATCH TRANSDERM SCH (07:50)
[2021-05-05] MEDS: HEPARIN SODIUM,PORCINE/PF 5,000 UNIT/0.5 ML SYRINGE SQ SCH ×2 (07:50→21:55)
[2021-05-05] MEDS: MULTIVITAMINS, THERA 1 EACH TAB PO SCH (07:50)
[2021-05-05] MEDS: PANTOPRAZOLE 40 MG TABLET PO SCH (07:50)
[2021-05-05] MEDS: THIAMINE 100 MG TAB PO SCH (07:50)
[2021-05-05] MEDS: DOCUSATE 100 MG CAP PO SCH ×2 (07:51→21:56)
[2021-05-05] MEDS: NYSTATIN 100,000 UNIT/ML SUSP 500,000 UNIT/5 ML CUP PO SCH ×4 (07:51→21:55)
[2021-05-05] MEDS: lisinopriL 20 MG TAB PO SCH ×2 (07:51→21:56)
[2021-05-05] MEDS: METOPROLOL TARTRATE 25 MG TAB PO SCH ×2 (07:51→21:56)
[2021-05-05] MEDS: guaiFENesin-DM 600/30MG 1 EACH TAB.ER.12H PO SCH ×2 (07:52→21:56)
[2021-05-05] MEDS: SODIUM CHLORIDE TAB 1 GM TAB PO SCH ×2 (07:52→21:56)
[2021-05-05] MEDS: IPRATROPIUM-ALBUTEROL 3 ML NEB INHALATION SCH ×4 (08:40→19:41)
[2021-05-05] MEDS: FORMOTEROL FUMARATE 20 MCG/2 ML NEBU INHALATION SCH ×2 (08:40→19:41)
[2021-05-05] MEDS: BUDESONIDE 1 MG/2 ML NEBU INHALATION SCH ×2 (08:40→19:41)
[2021-05-05 09:08] LABS: Basophils # (A) 0 X 10*3/uL (0.00-0.10); Basophils % (A) 0 %; Eosinophils # (A) 0.04 X 10*3/uL (0.04-0.35); Eosinophils % (A) 0.4 %; HCT 31.7 % (37.2-46.3); HGB 9.9 g/dL (12.0-15.0); Lymphocytes % (A) 8.1 %; MCH 28.1 pg (27.0-32.0); MCHC 31.2 g/dL (32.0-37.0); MCV 90.1 fL (80.0-97.0); Mean Platelet Volume 10.9 fL (9.5-12.2); Monocytes # (A) 0.71 X 10*3/uL (0.20-1.00); Monocytes % (A) 6.4 %; Neutrophils # (A) 9.41 X 10*3/uL (1.80-7.70); Neutrophils % (A) 84.6 %; Platelet Count 161 X 10*3/uL (140-440); RBC 3.52 X 10*6/uL (4.10-5.20); RDW 14.8 % (11.5-14.5); WBC 11.11 X 10*3/uL (4.50-10.00)
[2021-05-05 11:43] LABS: Glucose,Whole Blood 164 mg/dL (75-99)
[2021-05-05] MEDS ORDERED: TOLVAPTAN 15 MG 1/2 TABLET PO ONE (12:00)
--- NOTE | 2021-05-05 12:05 | P.PN ---
Subjective Progress Note Date: 05/05/21 Principal diagnosis: Exacerbation of COPD, hyponatremia 75-year-old white female patient with past medical history of advanced COPD, on home oxygen, normally wears 4 L of oxygen, baseline FEV1 of 28% of predicted, stage IV COPD, long history of smoking, currently in remission, hypertension, osteoarthritis, hypothyroidism, anxiety, was recently hospitalized for acute exacerbation of COPD in March. Following her hospitalization patient states she was discharged home. She came into the emergency department on 04/27/2021 for evaluation of shortness of breath, she was brought in by ambulance. Patient has had worsening dyspnea for the last 2 days, she reports mild cough with clear sputum production. No chest pain, she reports fevers. She recently just stopped smoking. She is currently on 3 L of oxygen, her pulse ox is 95%, she is afebrile, hemodynamically she is stable. Lung sounds are very diminished bilaterally, patient overall appears to be very fatigued, but does not appear to be in any acute distress. Chest x-ray film has been reviewed, possibly mild pul monary vascular prominence, and tiny right pleural effusion/or atelectasis. Patient has been given Solu-Medrol 125 mg 1, and was given nebulized treatment. She still being worked up in the emergency department. Admission blood work is still pending. On today's evaluation, the patient is being seen for a follow-up on the observation unit. She is essentially the same as yesterday. She is quite short of breath even at rest. She is actively bronchospastic and wheezy and she has marked breath sounds diminished in the lung bases bilaterally. Note that her COPD is advanced. She almost has an end-stage COPD with an FEV1 of 20% of predicted and she is on oxygen at 4 L at home. She is currently on a combination of bronchodilators and steroids. Blood work shows a sodium level of 124 and a serum bicarbonate of 42 with a BUN of 32 and a creatinine of 0.4. COCIV 19 testing was negative. On today's evaluation of 04/29/2021, the patient is feeling slightly better. Slightly less short of breath compared to yesterday. He treated with a combination of bronchodilators and steroids and antibiotics and the patient is being treated for an acute COPD exacerbation. She has advanced end-stage COPD with an FEV1 of 20% of predicted. Her Covid 19 testing was negative. Blood work today, white cell count of 13.6 with a hemoglobin of 11. Sodium is at 122 which is chronically low. Chloride is a 79. Is a 36 with a creatinine of 0.6. 04/30/2021, the patient is being seen for a follow-up. She is resting comfortably in bed. She has no specific complaints. The patient thinks that she is doing slightly better compared to yesterday. She remains on bronchodilators. She remains on steroids. Her oral intake is minimal. I noted a further drop in the sodium level which is down to 120 with a chloride level of 77 and a BUN is currently at 39 with a creatinine of 0.6. Based on that, the patient was started on a normal saline infusion rate of 50. Her blood sugar from today is 137. No chest pain. No angina. No altered mentation. No signs of any CO2 narcosis. No altered mentation related to her underlying hyponatremia which is essentially chronic 05/01/2021, I see the patient slightly more sleepy. Yet she arouses later stated she was feeling well. She has no specific complaints. She continues to receive treatment for COPD exacerbation. The patient was also noted to have significant hyponatremia. She was started on normal saline which is currently running at the rate of 40 mL an hour.The sodium level is improved compared to yesterday and currently is up to 122. Potassium level is at 5.2. Mean is at 43 with a creatinine of 0.6. White cell count is at 9.3 with hemoglobin 11.3. The patient has an incentive spirometer at the bedside and she is using periodic ally. She is resting comfortably in bed. Her breathing is nonlabored. Occasional congested cough. No stiffness sputum production. No signs of any CO2 narcosis. 05/02/2021, the patient continues to have issues with her sodium level which is down to 119. This is obviously of concern. The patient was thought to have hypovolemic hypochloremic hyponatremia. She was started normal saline infusion and the patient had a further drop in his sodium level. Based on that, this was discontinued. She remains on bronchodilators and steroids regarding her COPD exacerbation. She is currently being subjected to fluid restriction. No signs of any CO2 narcosis. No seizure activity. No other significant events overnight. She remains on bronchodilators and steroids for now. 05/03/2021, the patient is being seen for a follow-up. I'm glad to report to the sodium level is finally in the right direction and is currently up to 125. She is doing well. She reports that the breathing is improving. She is not having any significant shortness of breath. Feeding is always an issue. I think the patient needs help with feeding. She has poor denture. She has adequate swallow. She is not aspirating any fluid material. This point in time. Sodium level is at 125 with a chloride level of 88 and a potassium level of 4.7. She remains on bronchodilators and she remains on steroids. She has a congested cough. Her cough is weak. Unable to bring up any sputum. On 05/04/2021 patient is seen in follow-up. She is very weak and lethargic, but no acute distress. She is currently on 3 L per nasal cannula pulse ox 95%, afebrile, hemodynamically she has been stable. She's had no acute events overnight. She remains on 800 mL fluid restriction per nephrology for persistently low sodium level, and today's labs reveal sodium of 125, potassium is 5.7, chloride is 87, CO2 is 40, B1 is 42, creatinine 0.5, her white blood cell count 12.07, hemoglobin is 11.2, patient's urine random sodium was 29, and urine osmolality was 574. Urology saw the patient in consultation and patient had urine retention of over 2 years. Indwelling Mccauley catheter remains in place, draining urine. Patient currently remains on Rocephin, IV Solu-Medrol 40 mg every 12 hours. On 05/05/2021 patient seen in follow-up on medical surgical floor, she is a bit more awake on today's exam, however she is very weak, generally debilitated, lung sounds are still positive for diffuse wheezes, patient does cough, no p hlegm production. Yesterday we ordered IV fluids to be increased to 50 ML per hour as clinically patient looked very dehydrated. She continues on 800 mL fluid restriction per nephrology, today's labs are still pending, however her IV fluid rate has not been increased and IV fluids remained infusing only at 10 mL an hour overnight. Patient has a Mccauley catheter in place, and she has produced 700 mL in the urine output. Her oral intake is poor, appetite is very poor. Patient continues on Rocephin, yesterday she received a dose of IV Lasix per nephrology, she is on nebulized bronchodilators, and IV steroids with Solu- Medrol 40 mg every 12 hours. In addition patient was given a dose of Tolvaptan Objective - Vital Signs Vital signs: Vital Signs Temp 97.6 F 05/05/21 08:00 Pulse 88 05/05/21 11:54 Resp 16 05/05/21 11:54 BP 155/71 05/05/21 08:00 Pulse Ox 94 L 05/05/21 08:40 Intake & Output 05/04/21 05/05/21 05/05/21 18:59 06:59 18:59 Output Total 2280 700 Balance -2280 -700 Weight 58.967 kg Output: Urine 2280 700 Other: Voiding Method Indwelling Catheter Indwelling Catheter - Exam GENERAL EXAM: profoundly weak 75-year-old frail looking white female, looks older than stated age, currently on 4 L of oxygen, thin built comfortable in no apparent distress. Appears somewhat disheveled and poorly kept, with spilled food and drink stains on clothes HEAD: Normocephalic/atraumatic. EYES: Normal reaction of pupils, equal size. Conjunctiva pink, sclera white. NOSE: Clear with pink turbinates. THROAT: No erythema or exudates. NECK: No masses, no JVD, no thyroid enlargement, no adenopathy. CHEST: No chest wall deformity. Symmetrical expansion. LUNGS: Diminished breath sounds equal air entry with diffuse wheezes CVS: Regular rate and rhythm, normal S1 and S2, no gallops, no murmurs, no rubs ABDOMEN: Soft, nontender. No hepatosplenomegaly, normal bowel sounds, no guarding or rigidity. EXTREMITIES: No clubbing, no edema, no cyanosis, 2+ pulses and upper and lower extremities. MUSCULOSKELETAL: Muscle strength and tone normal. SPINE: No scoliosis or deformity SKIN: No rashes CENTRAL NERVOUS SYSTEM: lethargic and weak. No focal deficits, tone is normal in all 4 extremities. - Labs CBC & Chem 7: 05/05/21 06:13 05/04/21 18:00 Labs: Abnormal Lab Results - Last 24 Hours (Table) 05/04/21 05/04/21 05/04/21 Range/Units 17:15 18:00 19:46 WBC (4.50-10.00) X 10*3/uL RBC (4.10-5.20) X 10*6/uL Hgb (12.0-15.0) g/dL Hct (37.2-46.3) % MCHC (32.0-37.0) g/dL RDW (11.5-14.5) % Immature Gran # (0.00-0.04) X 10*3/uL Neutrophils # (1.80-7.70) X 10*3/uL Sodium 123 L (137-145) mmol/L POC Glucose (mg/dL) 186 H 147 H (75-99) mg/dL Urine Protein (Negative) Ur Leukocyte Esterase (Negative) Urine WBC (0-5) /hpf Urine WBC Clumps (None) /hpf Urine Bacteria (None) /hpf 05/05/21 05/05/21 05/05/21 Range/Units 05:50 06:13 07:11 WBC 11.11 H (4.50-10.00) X 10*3/uL RBC 3.52 L (4.10-5.20) X 10*6/uL Hgb 9.9 L (12.0-15.0) g/dL Hct 31.7 L (37.2-46.3) % MCHC 31.2 L (32.0-37.0) g/dL RDW 14.8 H (11.5-14.5) % Immature Gran # 0.05 H (0.00-0.04) X 10*3/uL Neutrophils # 9.41 H (1.80-7.70) X 10*3/uL Sodium (137-145) mmol/L POC Glucose (mg/dL) 130 H (75-99) mg/dL Urine Protein Trace H (Negative) Ur Leukocyte Esterase Moderate H (Negative) Urine WBC 59 H (0-5) /hpf Urine WBC Clumps Rare H (None) /hpf Urine Bacteria Rare H (None) /hpf 05/05/21 Range/Units 11:42 WBC (4.50-10.00) X 10*3/uL RBC (4.10-5.20) X 10*6/uL Hgb (12.0-15.0) g/dL Hct (37.2-46.3) % MCHC (32.0-37.0) g/dL RDW (11.5-14.5) % Immature Gran # (0.00-0.04) X 10*3/uL Neutrophils # (1.80-7.70) X 10*3/uL Sodium (137-145) mmol/L POC Glucose (mg/dL) 164 H (75-99) mg/dL Urine Protein (Negative) Ur Leukocyte Esterase (Negative) Urine WBC (0-5) /hpf Urine WBC Clumps (None) /hpf Urine Bacteria (None) /hpf Assessment and Plan Plan: #1. Acute exacerbation of COPD. COVID 19 PCR pending, CXR shows mild pulm vascular prominence, possible tiny right pleural effusion or atelectasis #2. Hyponatremia, and her serum sodium his persistently low at 125, consider possibility of dehydration #3. The patient has advanced and end-stage COPD with chronic hypoxemic and hypercapnic respiratory failure related to advanced COPD, stage IV, with baseline FEV1 of 28% of predicted, oxygen at 4 L of O2 by nasal cannula. #4. Chronic nicotine dependence, just recently quit #5. Hypertension #6. Osteoarthritis #7. Hypothyroidism #8. Anxiety #9. Frequent falls #10. History of fracture in the left upper extremity #11. multiple areas of skin laceration largest in the left upper lower extremity Plan: Continue current medical treatment Increase IV fluids to 50 ML per hour Continue IV steroids and nebulized bronchodilators No acute events overnight Generally patient is very weak, debilitated Clinically she seems to be dehydrated Urine output has been noted Labs have been noted We'll continue to follow her clinical course Overall prognosis is poor Recommend addressing CODE STATUS I performed a history & physical examination of the patient and discussed their management with my nurse practitioner, Galina Mar. I reviewed the nurse pra ctitioner's note and agree with the documented findings and plan of care. Lung sounds are positive for diminished breath sound throughout the lung bauman. The findings and the impression was discussed with the patient. I attest to the documentation by the nurse practitioner. Time with Patient: Less than 30
[2021-05-05] MEDS: FOLIC ACID 1 MG TAB PO SCH (13:05)
--- NOTE | 2021-05-05 14:42 | PN ---
PROGRESS NOTE Patient is seen for followup for hyponatremia. Patient wants to go home. She denies any significant complaints. No episodes of nausea or vomiting. She has had some oral intake, although appetite is poor. Yesterday patient received a dose of IV Lasix. She was started on saline as well and her sodium has dropped to 123 today. Potassium was 5.7 yesterday, down to 4.7 today. Creatinine remains at about 0.5 as of yesterday. On examination today, blood pressure 155/71, heart rate 60 per minute. Patient is afebrile. EXAMINATION OF THE HEART: S1 and S2. EXAMINATION OF LUNGS: Bilateral breath sounds are heard. Abdomen is soft, non-tender. Examination of lower extremities shows edema no significant edema. LPN INSTRUCTOR EXAM: Grossly intact. Labs show sodium 123, potassium 4.7. ASSESSMENT: 1. Hyponatremia, currently euvolemic. No significant edema noted. Patient is maintained on sodium chloride tabs. Her sodium has dropped to 123 today. We will give her a dose of tolvaptan and she is encouraged to increase oral intake. Continue with the sodium chloride tabs. 2. Urine retention, status post Mccauley catheter placement. 3. Chronic obstructive pulmonary disease exacerbation. 4. Benign hypertension, currently stable. PLAN: Tolvaptan x1 today. Continue with the sodium chloride tabs and discontinue saline. MMODL / IJN: [id number] /
[2021-05-05 16:14] LABS: African American GFR (CKD) 112.9 (60.0-200.0); Anion Gap 6.8 mmol/L (4.00-12.00); BUN/Creat Ratio 65.45 Ratio (12.00-20.00); Blood Urea Nitrogen 28.8 mg/dL (9.0-27.0); Calcium 8.2 mg/dL (8.7-10.3); Carbon Dioxide 35.5 mmol/L (21.6-31.8); Non-African American GFR(CKD) 97.4 (60.0-200.0); Potassium 4.8 mmol/L (3.5-5.5)
[2021-05-05 16:28] LABS: Glucose,Whole Blood 182 mg/dL (75-99)
[2021-05-05] MEDS: TAMSULOSIN 0.4 MG CAP.ER.24H PO SCH (17:48)
[2021-05-05 21:11] LABS: Glucose,Whole Blood 164 mg/dL (75-99)
--- NOTE | 2021-05-05 23:36 | P.PN ---
Subjective Progress Note Date: 05/05/21 This is a pleasant 75-year-old female who was recently admitted with COPD acute exacerbation and is being closely monitored. Patient also having generalized weakness and working with physical therapy and ECF is being planned once patient is stabilized discharge. Patient having some continued hyponatremia with nephrology following closely and will be given a dose of Samsca and repeat labs. Pulmonary also following and patient is maintained on IV antibiotics in the form of ceftriaxone along with IV steroids and breathing inhalational treatments and will continue. PT/OT therapy following and patient will be going to [facility] once stabilized. Labs: White blood count is 11.11, hemoglobin is 9.9, platelets are 161, sodium is 130, potassium is 4.8, BUN is 28.8, creatinine is 0.4 Review of systems: Constitutional: reports of fatigue, no reports of fever, or chills Cardiovascular: No reports of chest pain or palpitations Respiratory: No reports of worsening shortness of breath GI: No reports of nausea, vomiting, or diarrhea : No reports of dysuria or retention Neurovascular: reports of generalized weakness All medications have been reviewed Active Medications Acetaminophen (Acetaminophen Tab 500 Mg Tab) 500 mg PO Q6HR PRN PRN Reason: Fever and/ or Pain Last Admin: 05/03/21 22:17 Dose: 500 mg Documented by: Albuterol/Ipratropium (Ipratropium-Albuterol 3 Ml Neb) 3 ml INHALATION RT-QID [facility] Last Admin: 05/05/21 15:45 Dose: 3 ml Documented by: Albuterol/Ipratropium (Ipratropium-Albuterol 3 Ml Neb) 3 ml INHALATION RT-Q2H PRN PRN Reason: Shortness Of Breath Or Wheezing Last Admin: 04/29/21 04:14 Dose: 3 ml Documented by: Budesonide (Budesonide 1 Mg/2 Ml Nebu) 1 mg INHALATION RT-BID [facility] Last Admin: 05/05/21 08:40 Dose: 1 mg Documented by: Docusate Sodium (Docusate 100 Mg Cap) 100 mg PO BID [facility] Last Admin: 05/05/21 07:51 Dose: 100 mg Documented by: Folic Acid (Folic Acid 1 Mg Tab) 1 mg PO DAILY@1200 [facility] Last Admin: 05/05/21 13:05 Dose: 1 mg Documented by: Formoterol Fumarate (Formoterol Fumarate 20 Mcg/2 Ml Nebu) 20 mcg INHALATION RT-BID [facility] Last Admin: 05/05/21 08:40 Dose: 20 mcg Documented by: Guaifenesin/Dextromethorphan (Guaifenesin-Dm 600/30mg 1 Each Tab.Er.12h) 1 each PO Q12HR [facility] Last Admin: 05/05/21 07:52 Dose: 1 each Documented by: Heparin Sodium (Porcine) (Heparin Sodium,Porcine/Pf 5,000 Unit/0.5 Ml Syringe) 5,000 unit SQ Q12HR [facility] Last Admin: 05/05/21 07:50 Dose: 5,000 unit Documented by: Ceftriaxone Sodium 1 gm/ (Sodium Chloride) 50 mls @ 100 mls/hr IVPB Q24HR [facility] Last Admin: 05/05/21 07:51 Dose: 100 mls/hr Documented by: Insulin Aspart (Insulin Aspart (Novolog) 100 Unit/Ml Vial) 0 unit SQ ACHS [facility]; Protocol Last Admin: 05/05/21 13:05 Dose: 1 unit Documented by: Levothyroxine Sodium (Levothyroxine 75 Mcg Tab) 150 mcg PO DAILY@0630 [facility] Last Admin: 05/05/21 05:52 Dose: 150 mcg Documented by: Lisinopril (Lisinopril 20 Mg Tab) 20 mg PO BID [facility] Last Admin: 05/05/21 07:51 Dose: 20 mg Documented by: Loratadine (Loratadine 10 Mg Tab) 10 mg PO DAILY [facility] Last Admin: 05/05/21 07:50 Dose: 10 mg Documented by: Metformin HCl (Metformin 500 Mg Tab) 500 mg PO AC-BID [facility] Last Admin: 05/05/21 07:50 Dose: 500 mg Documented by: Methylprednisolone Sodium Succinate (Methylprednisolone Sod Succi 40 Mg/Ml 1 Ml Vial) 40 mg IV Q12HR [facility] Last Admin: 05/05/21 07:50 Dose: 40 mg Documented by: Metoprolol Tartrate (Metoprolol Tartrate 25 Mg Tab) 25 mg PO BID [facility] Last Admin: 05/05/21 07:51 Dose: 25 mg Documented by: Multivitamins (Multivitamins, Thera 1 Each Tab) 1 each PO DAILY@1200 [facility] Last Admin: 05/05/21 07:50 Dose: 1 each Documented by: Nicotine (Nicotine 14mg/24hr Patch) 1 patch TRANSDERM DAILY [facility] Last Admin: 05/05/21 07:50 Dose: 1 patch Documented by: Nystatin (Nystatin 100,000 Unit/Ml Susp 500,000 Unit/5 Ml Cup) 500,000 unit PO QID [facility] Last Admin: 05/05/21 13:05 Dose: 500,000 unit Documented by: Pantoprazole Sodium (Pantoprazole 40 Mg Tablet) 40 mg PO AC-BRKFST [facility] Last Admin: 05/05/21 07:50 Dose: 40 mg Documented by: Sodium Chloride (Sodium Chloride Tab 1 Gm Tab) 1 gm PO BID [facility] Last Admin: 05/05/21 07:52 Dose: 1 gm Documented by: Tamsulosin HCl (Tamsulosin 0.4 Mg Cap.Er.24h) 0.4 mg PO PC-SUPPER [facility] Last Admin: 05/04/21 17:37 Dose: 0.4 mg Documented by: Thiamine HCl (Thiamine 100 Mg Tab) 100 mg PO DAILY@1200 [facility] Last Admin: 05/05/21 07:50 Dose: 100 mg Documented by: Physical exam: Gen: This is a 75-year-old female awake alert and oriented 2-3, well-developed, well-nourished. Temp is 97.6F, pulse is 60, respirations are 18, blood pressure is 155/71, oxygen saturation is 99% on 3 L via nasal cannula HEENT: Head is atraumatic, normocephalic. Pupils equal, round. Sclerae is anicteric. NECK: Supple. No JVD. No lymphadenopathy. No thyromegaly. LUNGS: diminished breath sounds bilaterally with some scattered rhonchi and occasional crackle noted. No intercostal retractions. HEART: S1, S2 muffled. ABDOMEN: Soft. Bowel sounds are present. No masses. No tenderness. EXTREMITIES: No pedal edema. No calf tenderness. NEUROLOGICAL: Patient is awake, alert and oriented x3. diffusely weak. Assessment: Chronic obstructive pulmonary disease, acute exacerbation with acute hypoxic hyp ercarbic respiratory failure with acute purulent tracheobronchitis Change in mental status, acute metabolic encephalopathy, multifactorial Urinary retention requiring indwelling Mccauley catheter Hyponatremia Hyperkalemia Diabetes mellitus type 2 Elevated serum pro calcitonin History of congestive heart failure with acute exacerbation Diabetes mellitus type 2 Hypertension Degenerative joint disease hypothyroidism New onset diabetes type 2 recently Severe constipation, obstipation Chronic hypoxic respiratory failure Plan: Recommend to continue with current medications and management. Pulmonary and pulmonary following. Patient to continue on IV antibiotics along with breathing inhalational treatments and IV steroids. Nephrology following and will discontinue IV fluids and maintain sodium chloride tabs. Sodium continues to be low and slightly improved at 130. Patient will be given a dose of samsca and will repeat am labs. Patient continues to be weak with poor oral intake. Encouraged oral intake and to increase activity as tolerated. Patient to go to [facility] once stabilized and discharged. Prognosis is guarded. Possible discharge in 24-48 hours. Objective - Vital Signs Vital signs: Vital Signs Temp 98.4 F 05/05/21 02:00 Pulse 88 05/05/21 08:40 Resp 18 05/05/21 08:40 BP 143/69 05/05/21 02:00 Pulse Ox 94 L 05/05/21 08:40 Intake & Output 05/04/21 05/05/21 05/05/21 18:59 06:59 18:59 Output Total 2280 700 Balance -2280 -700 Weight 58.967 kg Output: Urine 2280 700 Other: Voiding Method Indwelling Catheter - Labs CBC & Chem 7: 05/05/21 06:13 05/05/21 06:13 Labs: Abnormal Lab Results - Last 24 Hours (Table) 05/04/21 05/04/21 05/04/21 Range/Units 07:51 11:24 17:15 WBC 12.07 H (4.50-10.00) X 10*3/uL RBC 4.07 L (4.10-5.20) X 10*6/uL Hgb 11.2 L (12.0-15.0) g/dL Hct 36.5 L (37.2-46.3) % MCHC 30.7 L (32.0-37.0) g/dL RDW 14.8 H (11.5-14.5) % Immature Gran # 0.07 H (0.00-0.04) X 10*3/uL Neutrophils # 10.81 H (1.80-7.70) X 10*3/uL Lymphocytes # 0.59 L (0.90-5.00) X 10*3/uL Eosinophils # 0.01 L (0.04-0.35) X 10*3/uL Sodium (137-145) mmol/L POC Glucose (mg/dL) 175 H 186 H (75-99) mg/dL Urine Protein (Negative) Ur Leukocyte Esterase (Negative) Urine WBC (0-5) /hpf Urine WBC Clumps (None) /hpf Urine Bacteria (None) /hpf 05/04/21 05/04/21 05/05/21 Range/Units 18:00 19:46 05:50 WBC (4.50-10.00) X 10*3/uL RBC (4.10-5.20) X 10*6/uL Hgb (12.0-15.0) g/dL Hct (37.2-46.3) % MCHC (32.0-37.0) g/dL RDW (11.5-14.5) % Immature Gran # (0.00-0.04) X 10*3/uL Neutrophils # (1.80-7.70) X 10*3/uL Lymphocytes # (0.90-5.00) X 10*3/uL Eosinophils # (0.04-0.35) X 10*3/uL Sodium 123 L (137-145) mmol/L POC Glucose (mg/dL) 147 H (75-99) mg/dL Urine Protein Trace H (Negative) Ur Leukocyte Esterase Moderate H (Negative) Urine WBC 59 H (0-5) /hpf Urine WBC Clumps Rare H (None) /hpf Urine Bacteria Rare H (None) /hpf 05/05/21 05/05/21 Range/Units 06:13 07:11 WBC 11.11 H (4.50-10.00) X 10*3/uL RBC 3.52 L (4.10-5.20) X 10*6/uL Hgb 9.9 L (12.0-15.0) g/dL Hct 31.7 L (37.2-46.3) % MCHC 31.2 L (32.0-37.0) g/dL RDW 14.8 H (11.5-14.5) % Immature Gran # 0.05 H (0.00-0.04) X 10*3/uL Neutrophils # 9.41 H (1.80-7.70) X 10*3/uL Lymphocytes # (0.90-5.00) X 10*3/uL Eosinophils # (0.04-0.35) X 10*3/uL Sodium (137-145) mmol/L POC Glucose (mg/dL) 130 H (75-99) mg/dL Urine Protein (Negative) Ur Leukocyte Esterase (Negative) Urine WBC (0-5) /hpf Urine WBC Clumps (None) /hpf Urine Bacteria (None) /hpf
[2021-05-06] MEDS: LEVOTHYROXINE 75 MCG TAB PO SCH (05:58)
[2021-05-06 06:51] LABS: Glucose,Whole Blood 138 mg/dL (75-99)
[2021-05-06 06:58] LABS: Basophils % (A) 0 %; Eosinophils % (A) 0 %; HCT 32.2 % (34.0-46.0); HGB 10.2 gm/dL (11.4-16.0); Hypochromasia Slight; Lymphocytes # (A) 0.9 k/uL (1.0-4.8); Lymphocytes % (A) 8 %; MCH 28.3 pg (25.0-35.0); MCHC 31.6 g/dL (31.0-37.0); MCV 89.7 fL (80.0-100.0); Mean Platelet Volume 8.3; Monocytes # (A) 0.3 k/uL (0-1.0); Monocytes % (A) 3 %; Neutrophils # (A) 9.5 k/uL (1.3-7.7); Neutrophils % (A) 87 %; Platelet Count 165 k/uL (150-450); RBC 3.58 m/uL (3.80-5.40); RDW 14.7 % (11.5-15.5); WBC 10.9 k/uL (3.8-10.6)
[2021-05-06 07:07] LABS: African American GFR (CKD) >90 (>60 ml/min/1.73 sqM); Anion Gap 0 mmol/L; Blood Urea Nitrogen 29 mg/dL (7-17); Calcium 8.4 mg/dL (8.4-10.2); Chloride 89 mmol/L (98-107); Glucose 135 mg/dL (74-99); Non-African American GFR(CKD) >90 (>60 ml/min/1.73 sqM); Potassium 4.2 mmol/L (3.5-5.1); Sodium 129 mmol/L (137-145)
[2021-05-06 07:19] LABS: Carbon Dioxide 40 mmol/L (22-30)
[2021-05-06] MEDS: FORMOTEROL FUMARATE 20 MCG/2 ML NEBU INHALATION SCH (07:30)
[2021-05-06] MEDS: BUDESONIDE 1 MG/2 ML NEBU INHALATION SCH (07:30)
[2021-05-06] MEDS: IPRATROPIUM-ALBUTEROL 3 ML NEB INHALATION SCH ×3 (07:30→16:12)
[2021-05-06 07:53] VITALS: BP 150/76; RESP 20; TEMP 97.8
[2021-05-06] MEDS: INSULIN ASPART (NovoLOG) 100 UNIT/ML VIAL SQ SCH ×2 (08:54→12:01)
[2021-05-06] MEDS: NICOTINE 14MG/24HR PATCH TRANSDERM SCH ×2 (08:54→09:01)
[2021-05-06] MEDS: NYSTATIN 100,000 UNIT/ML SUSP 500,000 UNIT/5 ML CUP PO SCH ×2 (08:55→12:07)
[2021-05-06] MEDS: DOCUSATE 100 MG CAP PO SCH (08:55)
[2021-05-06] MEDS: PANTOPRAZOLE 40 MG TABLET PO SCH (08:55)
[2021-05-06] MEDS: HEPARIN SODIUM,PORCINE/PF 5,000 UNIT/0.5 ML SYRINGE SQ SCH (08:55)
[2021-05-06] MEDS: lisinopriL 20 MG TAB PO SCH (08:55)
[2021-05-06] MEDS: LORATADINE 10 MG TAB PO SCH (08:55)
[2021-05-06] MEDS: metFORMIN 500 MG TAB PO SCH (08:55)
[2021-05-06] MEDS: METOPROLOL TARTRATE 25 MG TAB PO SCH (08:55)
[2021-05-06] MEDS: guaiFENesin-DM 600/30MG 1 EACH TAB.ER.12H PO SCH (08:55)
[2021-05-06] MEDS: methylPREDNISolone SOD SUCCI 40 MG/ML 1 ML VIAL IV SCH (10:34)
[2021-05-06 11:52] LABS: Glucose,Whole Blood 118 mg/dL (75-99)
[2021-05-06] MEDS: FOLIC ACID 1 MG TAB PO SCH (12:07)
[2021-05-06] MEDS: THIAMINE 100 MG TAB PO SCH (12:07)
[2021-05-06] MEDS: MULTIVITAMINS, THERA 1 EACH TAB PO SCH (12:07)
--- NOTE | 2021-05-06 12:37 | P.PN ---
Subjective Progress Note Date: 05/06/21 Principal diagnosis: Exacerbation of COPD, hyponatremia 75-year-old white female patient with past medical history of advanced COPD, on home oxygen, normally wears 4 L of oxygen, baseline FEV1 of 28% of predicted, stage IV COPD, long history of smoking, currently in remission, hypertension, osteoarthritis, hypothyroidism, anxiety, was recently hospitalized for acute exacerbation of COPD in March. Following her hospitalization patient states she was discharged home. She came into the emergency department on 04/27/2021 for evaluation of shortness of breath, she was brought in by ambulance. Patient has had worsening dyspnea for the last 2 days, she reports mild cough with clear sputum production. No chest pain, she reports fevers. She recently just stopped smoking. She is currently on 3 L of oxygen, her pulse ox is 95%, she is afebrile, hemodynamically she is stable. Lung sounds are very diminished bilaterally, patient overall appears to be very fatigued, but does not appear to be in any acute distress. Chest x-ray film has been reviewed, possibly mild pul monary vascular prominence, and tiny right pleural effusion/or atelectasis. Patient has been given Solu-Medrol 125 mg 1, and was given nebulized treatment. She still being worked up in the emergency department. Admission blood work is still pending. On today's evaluation, the patient is being seen for a follow-up on the observation unit. She is essentially the same as yesterday. She is quite short of breath even at rest. She is actively bronchospastic and wheezy and she has marked breath sounds diminished in the lung bases bilaterally. Note that her COPD is advanced. She almost has an end-stage COPD with an FEV1 of 20% of predicted and she is on oxygen at 4 L at home. She is currently on a combination of bronchodilators and steroids. Blood work shows a sodium level of 124 and a serum bicarbonate of 42 with a BUN of 32 and a creatinine of 0.4. COCIV 19 testing was negative. On today's evaluation of 04/29/2021, the patient is feeling slightly better. Slightly less short of breath compared to yesterday. He treated with a combination of bronchodilators and steroids and antibiotics and the patient is being treated for an acute COPD exacerbation. She has advanced end-stage COPD with an FEV1 of 20% of predicted. Her Covid 19 testing was negative. Blood work today, white cell count of 13.6 with a hemoglobin of 11. Sodium is at 122 which is chronically low. Chloride is a 79. Is a 36 with a creatinine of 0.6. 04/30/2021, the patient is being seen for a follow-up. She is resting comfortably in bed. She has no specific complaints. The patient thinks that she is doing slightly better compared to yesterday. She remains on bronchodilators. She remains on steroids. Her oral intake is minimal. I noted a further drop in the sodium level which is down to 120 with a chloride level of 77 and a BUN is currently at 39 with a creatinine of 0.6. Based on that, the patient was started on a normal saline infusion rate of 50. Her blood sugar from today is 137. No chest pain. No angina. No altered mentation. No signs of any CO2 narcosis. No altered mentation related to her underlying hyponatremia which is essentially chronic 05/01/2021, I see the patient slightly more sleepy. Yet she arouses later stated she was feeling well. She has no specific complaints. She continues to receive treatment for COPD exacerbation. The patient was also noted to have significant hyponatremia. She was started on normal saline which is currently running at the rate of 40 mL an hour.The sodium level is improved compared to yesterday and currently is up to 122. Potassium level is at 5.2. Mean is at 43 with a creatinine of 0.6. White cell count is at 9.3 with hemoglobin 11.3. The patient has an incentive spirometer at the bedside and she is using periodic ally. She is resting comfortably in bed. Her breathing is nonlabored. Occasional congested cough. No stiffness sputum production. No signs of any CO2 narcosis. 05/02/2021, the patient continues to have issues with her sodium level which is down to 119. This is obviously of concern. The patient was thought to have hypovolemic hypochloremic hyponatremia. She was started normal saline infusion and the patient had a further drop in his sodium level. Based on that, this was discontinued. She remains on bronchodilators and steroids regarding her COPD exacerbation. She is currently being subjected to fluid restriction. No signs of any CO2 narcosis. No seizure activity. No other significant events overnight. She remains on bronchodilators and steroids for now. 05/03/2021, the patient is being seen for a follow-up. I'm glad to report to the sodium level is finally in the right direction and is currently up to 125. She is doing well. She reports that the breathing is improving. She is not having any significant shortness of breath. Feeding is always an issue. I think the patient needs help with feeding. She has poor denture. She has adequate swallow. She is not aspirating any fluid material. This point in time. Sodium level is at 125 with a chloride level of 88 and a potassium level of 4.7. She remains on bronchodilators and she remains on steroids. She has a congested cough. Her cough is weak. Unable to bring up any sputum. On 05/04/2021 patient is seen in follow-up. She is very weak and lethargic, but no acute distress. She is currently on 3 L per nasal cannula pulse ox 95%, afebrile, hemodynamically she has been stable. She's had no acute events overnight. She remains on 800 mL fluid restriction per nephrology for persistently low sodium level, and today's labs reveal sodium of 125, potassium is 5.7, chloride is 87, CO2 is 40, B1 is 42, creatinine 0.5, her white blood cell count 12.07, hemoglobin is 11.2, patient's urine random sodium was 29, and urine osmolality was 574. Urology saw the patient in consultation and patient had urine retention of over 2 years. Indwelling Mccauley catheter remains in place, draining urine. Patient currently remains on Rocephin, IV Solu-Medrol 40 mg every 12 hours. On 05/05/2021 patient seen in follow-up on medical surgical floor, she is a bit more awake on today's exam, however she is very weak, generally debilitated, lung sounds are still positive for diffuse wheezes, patient does cough, no p hlegm production. Yesterday we ordered IV fluids to be increased to 50 ML per hour as clinically patient looked very dehydrated. She continues on 800 mL fluid restriction per nephrology, today's labs are still pending, however her IV fluid rate has not been increased and IV fluids remained infusing only at 10 mL an hour overnight. Patient has a Mccauley catheter in place, and she has produced 700 mL in the urine output. Her oral intake is poor, appetite is very poor. Patient continues on Rocephin, yesterday she received a dose of IV Lasix per nephrology, she is on nebulized bronchodilators, and IV steroids with Solu- Medrol 40 mg every 12 hours. In addition patient was given a dose of Tolvaptan On 05/06/2021 patient seen in follow-up on medical surgical floor, she appears to be more awake on today's exam, still bronchospastic, still dyspneic with any exertion, for the most part patient has been bedbound. She is on 3 L of oxygen pulse ox of 92%, -7 is stable, she's been afebrile, lung sounds reveal diffuse wheezes bilateral, patient has a weak nonproductive cough, remains on IV st eroids, remains on Rocephin, and nebulized bronchodilators, his labs have been reviewed, white blood cell count is 10.9, height improved, hemoglobin is 10.2, serum sodium is up to 129, nephrology is following, IV fluids have been discontinued per nephrology recommendations, fluid restriction has been increased to 1.2 L for 24 hours, and patient is also on Tolvaptan. Chloride is 83, CO2 is 40, B1 is 29, creatinine 0.50 Objective - Vital Signs Vital signs: Vital Signs Temp 97.8 F 05/06/21 07:52 Pulse 60 05/06/21 11:26 Resp 20 05/06/21 07:52 BP 150/76 05/06/21 07:52 Pulse Ox 92 L 05/06/21 07:52 Intake & Output 05/05/21 05/06/21 05/06/21 18:59 06:59 18:59 Intake Total 920 200 Output Total 1300 675 Balance -380 -475 Intake: Intake, IV Titration 600 Amount Sodium Chloride 0.9% 1, 500 000 ml @ 50 mls/hr IV . Q20H [facility] Rx#:[id number] cefTRIAXone 1 gm In 100 Sodium Chloride 0.9% 50 ml @ 100 mls/hr IVPB Q24HR [facility] Rx#:[id number] Oral 320 200 Output: Urine 1300 675 Other: Voiding Method Indwelling Catheter Indwelling Catheter Indwelling Catheter - Exam GENERAL EXAM: profoundly weak 75-year-old frail looking white female, looks older than stated age, currently on 4 L of oxygen, thin built comfortable in no apparent distress. Appears somewhat disheveled and poorly kept, with spilled food and drink stains on clothes HEAD: Normocephalic/atraumatic. EYES: Normal reaction of pupils, equal size. Conjunctiva pink, sclera white. NOSE: Clear with pink turbinates. THROAT: No erythema or exudates. NECK: No masses, no JVD, no thyroid enlargement, no adenopathy. CHEST: No chest wall deformity. Symmetrical expansion. LUNGS: Diminished breath sounds equal air entry with diffuse wheezes CVS: Regular rate and rhythm, normal S1 and S2, no gallops, no murmurs, no rubs ABDOMEN: Soft, nontender. No hepatosplenomegaly, normal bowel sounds, no guarding or rigidity. EXTREMITIES: No clubbing, no edema, no cyanosis, 2+ pulses and upper and lower extremities. MUSCULOSKELETAL: Muscle strength and tone normal. SPINE: No scoliosis or deformity SKIN: No rashes CENTRAL NERVOUS SYSTEM: lethargic and weak. No focal deficits, tone is normal in all 4 extremities. - Labs CBC & Chem 7: 05/06/21 06:05 05/06/21 06:05 Labs: Abnormal Lab Results - Last 24 Hours (Table) 05/05/21 05/05/21 05/05/21 Range/Units 06:13 16:26 21:07 WBC (3.8-10.6) k/uL RBC (3.80-5.40) m/uL Hgb (11.4-16.0) gm/dL Hct (34.0-46.0) % Neutrophils # (1.3-7.7) k/uL Lymphocytes # (1.0-4.8) k/uL Sodium 130 L (135-145) mmol/L Chloride 87 L (96-109) mmol/L Carbon Dioxide 35.5 H (21.6-31.8) mmol/L BUN 28.8 H (9.0-27.0) mg/dL Creatinine 0.4 L (0.6-1.5) mg/dL BUN/Creatinine Ratio 65.45 H (12.00-20.00) Ratio Glucose 136 H (70-110) mg/dL POC Glucose (mg/dL) 182 H 164 H (75-99) mg/dL Calcium 8.2 L (8.7-10.3) mg/dL 05/06/21 05/06/21 05/06/21 Range/Units 06:05 06:05 06:49 WBC 10.9 H (3.8-10.6) k/uL RBC 3.58 L (3.80-5.40) m/uL Hgb 10.2 L (11.4-16.0) gm/dL Hct 32.2 L (34.0-46.0) % Neutrophils # 9.5 H (1.3-7.7) k/uL Lymphocytes # 0.9 L (1.0-4.8) k/uL Sodium 129 L (135-145) mmol/L Chloride 89 L (96-109) mmol/L Carbon Dioxide 40 H (21.6-31.8) mmol/L BUN 29 H (9.0-27.0) mg/dL Creatinine 0.50 L (0.6-1.5) mg/dL BUN/Creatinine Ratio (12.00-20.00) Ratio Glucose 135 H (70-110) mg/dL POC Glucose (mg/dL) 138 H (75-99) mg/dL Calcium (8.7-10.3) mg/dL 05/06/21 Range/Units 11:46 WBC (3.8-10.6) k/uL RBC (3.80-5.40) m/uL Hgb (11.4-16.0) gm/dL Hct (34.0-46.0) % Neutrophils # (1.3-7.7) k/uL Lymphocytes # (1.0-4.8) k/uL Sodium (135-145) mmol/L Chloride (96-109) mmol/L Carbon Dioxide (21.6-31.8) mmol/L BUN (9.0-27.0) mg/dL Creatinine (0.6-1.5) mg/dL BUN/Creatinine Ratio (12.00-20.00) Ratio Glucose (70-110) mg/dL POC Glucose (mg/dL) 118 H (75-99) mg/dL Calcium (8.7-10.3) mg/dL Assessment and Plan Plan: #1. Acute exacerbation of COPD. COVID 19 PCR pending, CXR shows mild pulm va scular prominence, possible tiny right pleural effusion or atelectasis #2. Hyponatremia, improving and is up to 129 on today's labs. Patient remains on fluid restriction, currently at 1.2 L per 24 hours and [facility] neph[facility] is following #3. The patient has advanced and end-stage COPD with chronic hypoxemic and hypercapnic respiratory failure related to advanced COPD, stage IV, with [facility] FEV1 of 28% of predicted, oxygen at 4 L of O2 by nasal cannula. #4. Chronic nicotine dependence, just recently quit #5. Hypertension #6. Osteoarthritis #7. Hypothyroidism #8. Anxiety #9. Frequent falls #10. History of fracture in the left upper extremity #11. multiple areas of skin laceration largest in the left upper lower extremity Plan: Continue current medical treatment Continue IV steroids and nebulized bronchodilators Continue antibiotics possibility of urinary tract infection Clinically patient is more awake, still dyspneic on bronchospastic Patient has multiple comorbidities, she is generally very debilitated, she has advanced lung disease, end stage COPD She has had multiple hospitalizations for complications related to her COPD and other comorbidities Overall prognosis is poor and guarded Recommend addressing CODE STATUS, and patient is a good candidate for palliative care hospice from our perspective I performed a history & physical examination of the patient and discussed their management with my nurse practitioner, Galina Mar. I reviewed the nurse practitioner's note and agree with the documented findings and plan of care. Lung sounds are positive for diminished breath sound throughout the lung bauman. The findings and the impression was discussed with the patient. I attest to the documentation by the nurse practitioner. Time with Patient: Less than 30
--- NOTE | 2021-05-06 13:50 | P.DS ---
Providers Date of admission: 04/27/21 15:27 Expected date of discharge: 05/06/21 Attending physician: Tina Donahue Consults: 04/27/21 14:22 Consult Physician Stat Consulting Provider: Cindy Hicks Consult Reason/Comments: SOB Do you want consulting provider notified?: Already Contacted 05/02/21 08:18 Consult Physician Routine Consulting Provider: Kandy Corona Consult Reason/Comments: Hyponatremia Do you want consulting provider notified?: Yes 05/02/21 15:12 Consult Physician Routine Consulting Provider: Aldo Kirk Consult Reason/Comments: urinary retention Do you want consulting provider notified?: Yes Primary care physician: Chris Sears [facility] Course: Final diagnosis Chronic obstructive pulmonary disease, acute exacerbation with acute hypoxic hyp ercarbic respiratory failure with acute purulent tracheobronchitis Change in mental status, acute metabolic encephalopathy, multifactorial Urinary retention requiring indwelling Morrell catheter Hyponatremia Hyperkalemia Diabetes mellitus type 2 Elevated serum pro calcitonin History of congestive heart failure with acute exacerbation Diabetes mellitus type 2 Hypertension Degenerative joint disease hypothyroidism New onset diabetes type 2 recently Severe constipation, obstipation Chronic hypoxic respiratory failure Discharge disposition Patient is being discharged in a stable condition with guarded prognosis to [facility] for continued PT/OT therapy. Patient will follow-up with Dr. Griffiths in the outpatient setting upon discharge. Patient will also need close outpatient follow-up with nephrology and recommended repeat labs to monitor kidney functions and electrolytes closely. Patient will continue on oral Ceftin 500 mg twice daily for the next 3 days along with a prednisone taper upon discharge. Patient is to follow-up with pulminary Dr. Sears, her primary care provider once discharged from [facility]. Total time taken is greater than 35 minutes. Hospital course This is a pleasant 75-year-old female who was recently admitted with COPD acute exacerbation and is being closely monitored. Patient also having generalized weakness and working with physical therapy and ECF is being planned once patient is stabilized discharge. Patient having some continued hyponatremia with nephrology following closely and will be given a dose of Samsca and repeat labs. Pulmonary also following and patient is maintained on IV antibiotics in the form of ceftriaxone along with IV steroids and breathing inhalational treatments and will continue. PT/OT therapy following and patient will be going to [facility] once stabilized. 05/06/2021 She was seen and evaluated in follow-up with nephrology following closely. Patient will continue on sodium chloride tablets 1 g daily for the next one week and recommend repeat labs of CBC, BMP, magnesium and 3 days to monitor kidney functions and electrolytes. Patient also continue with oral Ceftin 500 mg twice daily for the next 3 days and then may discontinue to complete the course. She will continue on a prednisone taper prior to resuming normal daily dosing of prednisone. She will continue with indwelling Morrell catheter and recommend outpatient follow-up with urology as patient was retaining urine. Currently no reports of chest pain, shortness of breath, or palpitations. Patient is afebrile. No reports of nausea or vomiting and patient is tolerating diet. Patient is to continue with Accu-Cheks before meals and at bedtime and sliding scale along with a consistent carb dysphasia two ground diet with 1200 mL fluid restriction daily and recommend aspiration percussions of head of the bed elevated 30-45 and supervision with meals. Patient will be going to [facility] on the [place] today. Guarded prognosis. On exam vital signs are stable. Cardio S1, S2 are muffled. Respiratory system shows diminished breath sounds at the bases with no wheezing or rhonchi noted. Abdomen is soft and nontender. Nervous system shows diffuse weakness. Please refer to medication reconciliation sheet for a list of medications. Patient Condition at Discharge: Stable Plan - Discharge Summary Discharge Rx Participant: No New Discharge Prescriptions: New Cefuroxime Axetil [Ceftin] 500 mg PO BID 3 Days #6 tab Docusate [Colace] 100 mg PO BID cap Ipratropium-Albuterol Nebulize [Duoneb 0.5 mg-3 mg/3 ml Soln] 3 ml INHALATION RT-QID ml Ipratropium-Albuterol Nebulize [Duoneb 0.5 mg-3 mg/3 ml Soln] 3 ml INHALATION RT-Q2H PRN ml PRN Reason: Shortness Of Breath Or Wheezing Tamsulosin [Flomax] 0.4 mg PO PC-SUPPER capsule guaiFENesin-DM 600/30MG [Mucinex Dm] 1 each PO Q12HR tablet predniSONE 10 mg PO DIRECTED #30 tab Pantoprazole [Protonix] 40 mg PO AC-BRKFST tab Sodium Chloride Tab 1 gm PO DAILY 30 Days #30 tablet Thiamine [Vitamin B-1] 100 mg PO DAILY@1200 tab Folic Acid 1 mg PO DAILY@1200 tab Nicotine 14Mg/24Hr Patch [Habitrol] 1 patch TRANSDERM DAILY patch Multivitamins, Thera [Multivitamin (formulary)] 1 each PO DAILY@1200 tab Formoterol Fumarate [Perforomist] 20 mcg INHALATION RT-BID ml Budesonide [Pulmicort] 1 mg INHALATION RT-BID ml Continue Budesonide-Formot 160-4.5 Mcg [Symbicort 160-4.5 Mcg Inhaler] 2 puff INHALATION RT-BID #1 vial Levothyroxine Sodium [Synthroid] 150 mcg PO DAILY #30 tablet Loratadine [Claritin] 10 mg PO DAILY Nystatin 100,000 Unit/ml Susp [Mycostatin Oral Susp] 5 ml PO QID lisinopriL [Zestril] 20 mg PO BID predniSONE 10 mg PO MOWEFR #0 Albuterol Sulfate [Proair Hfa] 2 puff INHALATION RT-QID PRN PRN Reason: Shortness Of Breath Acetaminophen Tab [Tylenol] 650 mg PO Q6HR PRN tab PRN Reason: Fever And/ Or Pain Metoprolol Tartrate [Lopressor] 25 mg PO BID #60 tab metFORMIN HCL ER [Glucophage XR] 500 mg PO AC-BID #60 tab INSULIN ASPART (NovoLOG) [NovoLOG (formulary)] See Protocol SQ ACHS predniSONE 5 mg PO SUTUTHSA #0 Discharge Medication List Budesonide-Formot 160-4.5 Mcg [Symbicort 160-4.5 Mcg Inhaler] 2 puff INHALATION RT-BID #1 vial 12/05/18 [Rx] Levothyroxine Sodium [Synthroid] 150 mcg PO DAILY #30 tablet 12/05/18 [Rx] Albuterol Sulfate [Proair Hfa] 2 puff INHALATION RT-QID PRN 09/25/20 [History] Loratadine [Claritin] 10 mg PO DAILY 10/23/20 [History] Acetaminophen Tab [Tylenol] 650 mg PO Q6HR PRN tab 11/14/20 [Rx] Nystatin 100,000 Unit/ml Susp [Mycostatin Oral Susp] 5 ml PO QID 03/29/21 [History] lisinopriL [Zestril] 20 mg PO BID 03/29/21 [History] Metoprolol Tartrate [Lopressor] 25 mg PO BID #60 tab 04/03/21 [Rx] metFORMIN HCL ER [Glucophage XR] 500 mg PO AC-BID #60 tab 04/03/21 [Rx] INSULIN ASPART (NovoLOG) [NovoLOG (formulary)] See Protocol SQ ACHS 04/27/21 [History] Budesonide [Pulmicort] 1 mg INHALATION RT-BID ml 05/06/21 [Rx] Cefuroxime Axetil [Ceftin] 500 mg PO BID 3 Days #6 tab 05/06/21 [Rx] Docusate [Colace] 100 mg PO BID cap 05/06/21 [Rx] Folic Acid 1 mg PO DAILY@1200 tab 05/06/21 [Rx] Formoterol Fumarate [Perforomist] 20 mcg INHALATION RT-BID ml 05/06/21 [Rx] Ipratropium-Albuterol Nebulize [Duoneb 0.5 mg-3 mg/3 ml Soln] 3 ml INHALATION RT-Q2H PRN ml 05/06/21 [Rx] Ipratropium-Albuterol Nebulize [Duoneb 0.5 mg-3 mg/3 ml Soln] 3 ml INHALATION RT-QID ml 05/06/21 [Rx] Multivitamins, Thera [Multivitamin (formulary)] 1 each PO DAILY@1200 tab 05/06/21 [Rx] Nicotine 14Mg/24Hr Patch [Habitrol] 1 patch TRANSDERM DAILY patch 05/06/21 [Rx] Pantoprazole [Protonix] 40 mg PO AC-BRKFST tab 05/06/21 [Rx] Sodium Chloride Tab 1 gm PO DAILY 30 Days #30 tablet 05/06/21 [Rx] Tamsulosin [Flomax] 0.4 mg PO PC-SUPPER capsule 05/06/21 [Rx] Thiamine [Vitamin B-1] 100 mg PO DAILY@1200 tab 05/06/21 [Rx] guaiFENesin-DM 600/30MG [Mucinex Dm] 1 each PO Q12HR tablet 05/06/21 [Rx] predniSONE 5 mg PO SUTUTHSA #0 05/06/21 [Rx] predniSONE 10 mg PO DIRECTED #30 tab 05/06/21 [Rx] predniSONE 10 mg PO MOWEFR #0 05/06/21 [Rx] Follow up Appointment(s)/Referral(s): Chris Sears MD [Primary Care Provider] - 1-2 days Kandy Corona MD [STAFF PHYSICIAN] - 1 Week [facility] on the [place], [NON-STAFF] - As Needed Ambulatory/Diagnostic Orders: Complete Blood Count w/diff [LAB.AMB] Time Frame: 3 Days, Location: None Selected Activity/Diet/Wound Care/Special Instructions: Patient is going to [facility] on the [address] [place] Activity as tolerated Continue with antibiotics for 3 days and then may discontinue Repeat labs in 2-3 days to monitor CBC, BMP, magnesium Recommend to continue with Accu-Cheks before meals and at bedtime Continue sodium chloride tablets and follow-up labs and outpatient follow-up with nephrology Continue consistent carb dysphasia to ground diet with fluid restrictions of 1200 mL daily Follow-up with pulmonary outpatient Follow-up with primary care provider on discharge Remove morrell catheter on 05/09/21, complete a voiding trail per facility guidelines Discharge Disposition: TRANSFER TO SNF/ECF
[2021-05-06 16:23] VITALS: PULSE 64
--- NOTE | 2021-05-06 18:07 | PN ---
PROGRESS NOTE Patient is seen for followup for hyponatremia. This morning patient is sitting up. She is comfortable. Denies any significant complaints. The patient received a dose of tolvaptan yesterday, but this was after her morning sodium was drawn which had already increased to 130. Today, her sodium is actually down to 129. Overall, patient denies any significant complaints. EXAMINATION: Today, blood pressure 150/76, heart rate 64 per minute. She is afebrile. Examination of the heart S1, S2. Examination of lungs: Decreased breath sounds at the bases. Abdomen is soft, nontender. Examination of lower extremities shows no edema. LAB: Show sodium 129, potassium 4.2, chloride 89, CO2 is 40, BUN 29, creatinine 0.5. ASSESSMENT: 1. Hyponatremia currently patient is euvolemic. Sodium is improved. She was maintained on sodium chloride tabs and was also diuresed and started on saline yesterday. This was however discontinued and this morning sodium is about the same at 129 from 130 yesterday. This is in spite of receiving a dose of tolvaptan which was given after the morning sodium of 130 yesterday. At this time we can continue with the sodium chloride tabs, however patient will start that tomorrow since there had been a significant increase in her sodium from 123-130. She will need close monitoring of her sodium levels in about 2-3 days post discharge. 2. Urine retention status post Mccauley catheter placement. 3. Chronic obstructive pulmonary disease exacerbation with improvement. 4. Hypertension, currently stable. PLAN: Resume sodium chloride tabs starting tomorrow, 1 gram daily as blood pressure is slightly on the higher side and repeat sodium in 3-4 days. The patient may need to use tolvaptan once or twice a week depending on her repeat sodium as outpatient. MMODL / IJN: [id number] /
== END 2021-05-06 17:20 | DRG 190 ==
LOC: EC 13:43 → 4SSUR 15:27 → 1SOBS 04-28 05:24 → 4SSUR 04-28 14:40
PROVIDERS: ADMIT Internal Medicine; ATTEND Internal Medicine
DX: J44.1 Chronic obstructive pulmonary disease with (acute) exacerbation (principal); G93.41 Metabolic encephalopathy; J96.21 Acute and chronic respiratory failure with hypoxia; J96.22 Acute and chronic respiratory failure with hypercapnia; E87.1 Hypo-osmolality and hyponatremia; E03.9 Hypothyroidism, unspecified; E11.51 Type 2 diabetes mellitus with diabetic peripheral angiopathy without gangrene; E86.0 Dehydration; E87.5 Hyperkalemia; F32.A Depression, unspecified; F41.9 Anxiety disorder, unspecified; I50.9 Heart failure, unspecified; I11.0 Hypertensive heart disease with heart failure; K59.00 Constipation, unspecified; M19.90 Unspecified osteoarthritis, unspecified site; R47.02 Dysphasia; Z20.822 Contact with and (suspected) exposure to COVID-19; Z74.01 Bed confinement status; Z79.4 Long term (current) use of insulin; Z79.51 Long term (current) use of inhaled steroids; Z79.52 Long term (current) use of systemic steroids; Z79.890 Hormone replacement therapy; Z79.899 Other long term (current) drug therapy; Z80.0 Family history of malignant neoplasm of digestive organs; Z87.891 Personal history of nicotine dependence; Z90.710 Acquired absence of both cervix and uterus; Z96.1 Presence of intraocular lens; J20.9 Acute bronchitis, unspecified; Z99.81 Dependence on supplemental oxygen; Z88.1 Allergy status to other antibiotic agents; Z88.0 Allergy status to penicillin; Z88.8 Allergy status to other drugs, medicaments and biological substances; R29.6 Repeated falls; S71.112A Laceration without foreign body, left thigh, initial encounter; R33.9 Retention of urine, unspecified; W19.XXXA Unspecified fall, initial encounter; Z91.81 History of falling
CPT/HCPCS: 36415; 70450; 71046; 80048; 80053; 81001; 83605; 83735; 83880; 83930; 83935; 84132; 84145; 84295; 84300; 84443; 84484; 85025; 85610; 85730; 87635; 93005; 94640; 94760; 99285

== ENCOUNTER 2021-06-29 14:33 | Inpatient (IN) | payer MEDICARE, BC ==
[2021-06-29] MEDS ORDERED: SODIUM CHLORIDE 0.9% 1,000 ML IV STA (14:49)
--- NOTE | 2021-06-29 14:53 | ED ---
General Adult HPI - General Stated complaint: dehydration Time Seen by Provider: 06/29/21 14:35 Source: patient, EMS, RN notes reviewed Mode of arrival: EMS Limitations: altered mental status - History of Present Illness Initial comments: Patient is a pleasant 76-year-old female presenting to the emergency department with concerns for dehydration. Patient reports he comes from home with chronic confusion. Patient is a poor historian. Patient omits not drinking or eating well the past several days. Patient states she does feel somewhat generally weak. Further history is limited. - Related Data Home Medications Medication Instructions Recorded Confirmed Albuterol Sulfate [Proair Hfa] 2 puff INHALATION RT-QID PRN 09/25/20 04/27/21 Loratadine [Claritin] 10 mg PO DAILY 10/23/20 04/27/21 Nystatin 100,000 Unit/ml Susp 5 ml PO QID 03/29/21 04/27/21 [Mycostatin Oral Susp] lisinopriL [Zestril] 20 mg PO BID 03/29/21 04/27/21 INSULIN ASPART (NovoLOG) [NovoLOG See Protocol SQ ACHS 04/27/21 04/27/21 (formulary)] Previous Rx's Medication Instructions Recorded Budesonide-Formot 160-4.5 Mcg 2 puff INHALATION RT-BID #1 vial 12/05/18 [Symbicort 160-4.5 Mcg Inhaler] Levothyroxine Sodium [Synthroid] 150 mcg PO DAILY #30 tablet 12/05/18 Acetaminophen Tab [Tylenol] 650 mg PO Q6HR PRN tab 11/14/20 Metoprolol Tartrate [Lopressor] 25 mg PO BID #60 tab 04/03/21 metFORMIN HCL ER [Glucophage XR] 500 mg PO AC-BID #60 tab 04/03/21 Budesonide [Pulmicort] 1 mg INHALATION RT-BID ml 05/06/21 Cefuroxime Axetil [Ceftin] 500 mg PO BID 3 Days #6 tab 05/06/21 Docusate [Colace] 100 mg PO BID cap 05/06/21 Folic Acid 1 mg PO DAILY@1200 tab 05/06/21 Formoterol Fumarate [Perforomist] 20 mcg INHALATION RT-BID ml 05/06/21 Ipratropium-Albuterol Nebulize 3 ml INHALATION RT-Q2H PRN ml 05/06/21 [Duoneb 0.5 mg-3 mg/3 ml Soln] Ipratropium-Albuterol Nebulize 3 ml INHALATION RT-QID ml 05/06/21 [Duoneb 0.5 mg-3 mg/3 ml Soln] Multivitamins, Thera [Multivitamin 1 each PO DAILY@1200 tab 05/06/21 (formulary)] Nicotine 14Mg/24Hr Patch [Habitrol] 1 patch TRANSDERM DAILY patch 05/06/21 Pantoprazole [Protonix] 40 mg PO AC-BRKFST tab 05/06/21 Sodium Chloride Tab 1 gm PO DAILY 30 Days #30 tablet 05/06/21 Tamsulosin [Flomax] 0.4 mg PO PC-SUPPER capsule 05/06/21 Thiamine [Vitamin B-1] 100 mg PO DAILY@1200 tab 05/06/21 guaiFENesin-DM 600/30MG [Mucinex 1 each PO Q12HR tablet 05/06/21 Dm] predniSONE 5 mg PO SUTUTHSA #0 05/06/21 predniSONE 10 mg PO DIRECTED #30 tab 05/06/21 predniSONE 10 mg PO MOWEFR #0 05/06/21 Allergies Allergy/AdvReac Type Severity Reaction Status Date / Time bacitracin Allergy Rash/Hives Verified 06/29/21 14:51 [From Neosporin ([id number])] neomycin Allergy Rash/Hives Verified 06/29/21 14:51 [From Neosporin ([id number])] Penicillins Allergy Rash/Hives Verified 06/29/21 14:51 polymyxin B Allergy Rash/Hives Verified 06/29/21 14:51 [From Neosporin ([id number])] trimethoprim [From Polytrim] Allergy Rash/Hives Verified 06/29/21 14:51 levofloxacin [From Levaquin] AdvReac WEAKNESS Verified 06/29/21 14:51 ELDA/POLY/DEX Allergy Rash/Hives Uncoded 06/29/21 14:51 Review of Systems ROS Statement: Those systems with pertinent positive or pertinent negative responses have been documented in the HPI. ROS Other: All systems not noted in ROS Statement are negative. Constitutional: Denies: fever Eyes: Denies: eye pain ENT: Denies: ear pain Respiratory: Denies: cough Cardiovascular: Denies: chest pain Endocrine: Reports: fatigue Gastrointestinal: Denies: abdominal pain Genitourinary: Denies: dysuria Musculoskeletal: Denies: back pain Skin: Denies: rash Neurological: Reports: as per HPI Past Medical History Past Medical History: Heart Failure, COPD, Diabetes Mellitus, Hypertension, Osteoarthritis (OA), Respiratory Disorder, Thyroid Disorder, Vascular Disorder Additional Past Medical History / Comment(s): Pt recently admitted to [facility] on 10/23/20 with acute exacerbation chronic COPD, acute on chronic hypoxic hypercarbic respiratory failure, acute purulent tracheobronchitis, possible new onset diabetes, hyponatremia/hypovolemic, hyperkalemia, severe constipation/obstipation. Other hx: Advanced COPD, chronic hypoxic respiratory failure, home oxygen, 2010 pericarditis, former smoker, hypothyroidism, skeletal chest wall pain, chronic anxiety, anemia, PVD, past leg and foot wounds, recent L distal radius fracture/L knee wound sutures since removed, gout, confused at times per spouse and recently has been bedbound. History of Any Multi-Drug Resistant Organisms: None Reported Past Surgical History: Heart Catheterization, Hysterectomy, Tubal Ligation Additional Past Surgical History / Comment(s): 2011 cardiac cath, 2013 cardiac angiogram, colonoscopy/benign polypectomy, anal fistula repair, bilateral cataract removals/lens implants. Past Anesthesia/Blood Transfusion Reactions: Previous Problems w/ Anesthesia, Postoperative Nausea & Vomiting (PONV) Additional Past Anesthesia/Blood Transfusion Reaction / Comment(s): oxygen was "low" post op, nausea one time Past Psychological History: Anxiety Smoking Status: Former smoker Past Alcohol Use History: None Reported Past Drug Use History: None Reported - Past Family History Mother History Unknown: Yes Family Medical History: Cancer, Thyroid Disorder Additional Family Medical History / Comment(s): Liver Cancer Father History Unknown: Yes Family Medical History: Cancer General Exam Limitations: altered mental status General appearance: alert, in no apparent distress, cachectic Head exam: Present: normocephalic Eye exam: Present: normal appearance, PERRL ENT exam: Present: mucous membranes dry Neck exam: Present: normal inspection Respiratory exam: Present: normal lung sounds bilaterally Cardiovascular Exam: Present: regular rate, normal rhythm GI/Abdominal exam: Present: soft. Absent: tenderness Extremities exam: Present: normal inspection Neurological exam: Present: alert Psychiatric exam: Present: normal affect, normal mood Skin exam: Present: other (Dry skin, mostly on the legs.) Course Vital Signs 06/29/21 06/29/21 14:38 14:49 Temperature 98.6 F Pulse Rate 106 H Respiratory 16 20 Rate Blood Pressure 170/81 O2 Sat by Pulse 100 Oximetry - Reevaluation(s) Reevaluation #1: 06/29/21 15:42 Patient does meet sepsis criteria diagnosed at 1540. Blood culture and lactic acid and IV antibiotics will be ordered. EKG Findings - EKG Comments: EKG Findings:: Normal sinus rhythm with a rate of 99. NJ 140. QRS 90. QT 3:3 0. QTC 423. Normal axis. Normal QRS. No acute ST change. Medical Decision Making - Medical Decision Making Patient reevaluated and updated. Patient clinically appears dehydrated. Patient does have evidence of urinary tract infection does meet sepsis criteria. Dr. lópez hasn't paged for admission, covering Dr. Griffiths. - Lab Data Result diagrams: 06/29/21 14:56 06/29/21 14:56 Lab Results 06/29/21 06/29/21 06/29/21 Range/Units 14:56 14:56 14:56 WBC 11.3 H (3.8-10.6) k/uL RBC 4.06 (3.80-5.40) m/uL Hgb 11.6 D (11.4-16.0) gm/dL Hct 38.4 (34.0-46.0) % MCV 94.4 (80.0-100.0) fL MCH 28.5 (25.0-35.0) pg MCHC 30.2 L (31.0-37.0) g/dL RDW 14.6 (11.5-15.5) % Plt Count 338 (150-450) k/uL MPV 7.2 Neutrophils % 80 % Lymphocytes % 11 % Monocytes % 4 % Eosinophils % 1 % Basophils % 1 % Neutrophils # 9.0 H (1.3-7.7) k/uL Lymphocytes # 1.3 (1.0-4.8) k/uL Monocytes # 0.5 (0-1.0) k/uL Eosinophils # 0.2 (0-0.7) k/uL Basophils # 0.1 (0-0.2) k/uL Hypochromasia Marked PT 9.4 (9.0-12.0) sec INR 0.9 (<1.2) APTT 17.9 L (22.0-30.0) sec Sodium 135 L (137-145) mmol/L Potassium 4.4 (3.5-5.1) mmol/L Chloride 92 L (98-107) mmol/L Carbon Dioxide 39 H (22-30) mmol/L Anion Gap 4 mmol/L BUN 21 H (7-17) mg/dL Creatinine 0.42 L (0.52-1.04) mg/dL Est GFR (CKD-EPI)AfAm >90 (>60 ml/min/1.73 sqM) Est GFR (CKD-EPI)NonAf >90 (>60 ml/min/1.73 sqM) Glucose 98 (74-99) mg/dL Plasma Lactic Acid Lance (0.7-2.0) mmol/L Calcium 9.3 (8.4-10.2) mg/dL Magnesium 1.7 (1.6-2.3) mg/dL Total Bilirubin 0.6 (0.2-1.3) mg/dL AST 18 (14-36) U/L ALT 10 (4-34) U/L Alkaline Phosphatase 73 (38-126) U/L Troponin I (0.000-0.034) ng/mL NT-Pro-B Natriuret Pep pg/mL Total Protein 6.5 (6.3-8.2) g/dL Albumin 3.4 L (3.5-5.0) g/dL Urine Color Urine Appearance (Clear) Urine pH (5.0-8.0) Ur Specific [place] (1.001-1.035) Urine Protein (Negative) Urine Glucose (UA) (Negative) Urine Ketones (Negative) Urine Blood (Negative) Urine Nitrite (Negative) Urine Bilirubin (Negative) Urine Urobilinogen (<2.0) mg/dL Ur Leukocyte Esterase (Negative) Urine RBC (0-5) /hpf Urine WBC (0-5) /hpf Urine WBC Clumps (None) /hpf Ur Squamous Epith Cells (0-4) /hpf Amorphous Sediment (None) /hpf Urine Bacteria (None) /hpf Urine Mucus (None) /hpf 06/29/21 06/29/21 06/29/21 Range/Units 14:56 14:56 14:56 WBC (3.8-10.6) k/uL RBC (3.80-5.40) m/uL Hgb (11.4-16.0) gm/dL Hct (34.0-46.0) % MCV (80.0-100.0) fL MCH (25.0-35.0) pg MCHC (31.0-37.0) g/dL RDW (11.5-15.5) % Plt Count (150-450) k/uL MPV Neutrophils % % Lymphocytes % % Monocytes % % Eosinophils % % Basophils % % Neutrophils # (1.3-7.7) k/uL Lymphocytes # (1.0-4.8) k/uL Monocytes # (0-1.0) k/uL Eosinophils # (0-0.7) k/uL Basophils # (0-0.2) k/uL Hypochromasia PT (9.0-12.0) sec INR (<1.2) APTT (22.0-30.0) sec Sodium (137-145) mmol/L Potassium (3.5-5.1) mmol/L Chloride (98-107) mmol/L Carbon Dioxide (22-30) mmol/L Anion Gap mmol/L BUN (7-17) mg/dL Creatinine (0.52-1.04) mg/dL Est GFR (CKD-EPI)AfAm (>60 ml/min/1.73 sqM) Est GFR (CKD-EPI)NonAf (>60 ml/min/1.73 sqM) Glucose (74-99) mg/dL Plasma Lactic Acid Lance 0.8 (0.7-2.0) mmol/L Calcium (8.4-10.2) mg/dL Magnesium (1.6-2.3) mg/dL Total Bilirubin (0.2-1.3) mg/dL AST (14-36) U/L ALT (4-34) U/L Alkaline Phosphatase (38-126) U/L Troponin I <0.012 (0.000-0.034) ng/mL NT-Pro-B Natriuret Pep 262 pg/mL Total Protein (6.3-8.2) g/dL Albumin (3.5-5.0) g/dL Urine Color Urine Appearance (Clear) Urine pH (5.0-8.0) Ur Specific [place] (1.001-1.035) Urine Protein (Negative) Urine Glucose (UA) (Negative) Urine Ketones (Negative) Urine Blood (Negative) Urine Nitrite (Negative) Urine Bilirubin (Negative) Urine Urobilinogen (<2.0) mg/dL Ur Leukocyte Esterase (Negative) Urine RBC (0-5) /hpf Urine WBC (0-5) /hpf Urine WBC Clumps (None) /hpf Ur Squamous Epith Cells (0-4) /hpf Amorphous Sediment (None) /hpf Urine Bacteria (None) /hpf Urine Mucus (None) /hpf 06/29/21 Range/Units 14:59 WBC (3.8-10.6) k/uL RBC (3.80-5.40) m/uL Hgb (11.4-16.0) gm/dL Hct (34.0-46.0) % MCV (80.0-100.0) fL MCH (25.0-35.0) pg MCHC (31.0-37.0) g/dL RDW (11.5-15.5) % Plt Count (150-450) k/uL MPV Neutrophils % % Lymphocytes % % Monocytes % % Eosinophils % % Basophils % % Neutrophils # (1.3-7.7) k/uL Lymphocytes # (1.0-4.8) k/uL Monocytes # (0-1.0) k/uL Eosinophils # (0-0.7) k/uL Basophils # (0-0.2) k/uL Hypochromasia PT (9.0-12.0) sec INR (<1.2) APTT (22.0-30.0) sec Sodium (137-145) mmol/L Potassium (3.5-5.1) mmol/L Chloride (98-107) mmol/L Carbon Dioxide (22-30) mmol/L Anion Gap mmol/L BUN (7-17) mg/dL Creatinine (0.52-1.04) mg/dL Est GFR (CKD-EPI)AfAm (>60 ml/min/1.73 sqM) Est GFR (CKD-EPI)NonAf (>60 ml/min/1.73 sqM) Glucose (74-99) mg/dL Plasma Lactic Acid Lance (0.7-2.0) mmol/L Calcium (8.4-10.2) mg/dL Magnesium (1.6-2.3) mg/dL Total Bilirubin (0.2-1.3) mg/dL AST (14-36) U/L ALT (4-34) U/L Alkaline Phosphatase (38-126) U/L Troponin I (0.000-0.034) ng/mL NT-Pro-B Natriuret Pep pg/mL Total Protein (6.3-8.2) g/dL Albumin (3.5-5.0) g/dL Urine Color Yellow Urine Appearance Cloudy H (Clear) Urine pH 6.0 (5.0-8.0) Ur Specific [place] 1.016 (1.001-1.035) Urine Protein 1+ H (Negative) Urine Glucose (UA) Negative (Negative) Urine Ketones 3+ H (Negative) Urine Blood Small H (Negative) Urine Nitrite Positive H (Negative) Urine Bilirubin Negative (Negative) Urine Urobilinogen <2.0 (<2.0) mg/dL Ur Leukocyte Esterase Large H (Negative) Urine RBC 29 H (0-5) /hpf Urine WBC 140 H (0-5) /hpf Urine WBC Clumps Few H (None) /hpf Ur Squamous Epith Cells <1 (0-4) /hpf Amorphous Sediment Rare H (None) /hpf Urine Bacteria Few H (None) /hpf Urine Mucus Rare H (None) /hpf Critical Care Time Critical Care Time: Yes Total Critical Care Time: 32 Disposition Clinical Impression: UTI (urinary tract infection), Sepsis, Dehydration Disposition: ADMITTED IP TO THIS HOSP Is patient prescribed a controlled substance at d/c from ED?: No Referrals: Chris Sears MD [Primary Care Provider] - 1-2 days Decision Time: 15:43
[2021-06-29 15:07] LABS: Basophils # (A) 0.1 k/uL (0-0.2); Basophils % (A) 1 %; Eosinophils # (A) 0.2 k/uL (0-0.7); Eosinophils % (A) 1 %; HCT 38.4 % (34.0-46.0); Hypochromasia Marked; Lymphocytes # (A) 1.3 k/uL (1.0-4.8); Lymphocytes % (A) 11 %; MCH 28.5 pg (25.0-35.0); MCHC 30.2 g/dL (31.0-37.0); MCV 94.4 fL (80.0-100.0); Mean Platelet Volume 7.2; Monocytes # (A) 0.5 k/uL (0-1.0); Monocytes % (A) 4 %; Neutrophils % (A) 80 %; Platelet Count 338 k/uL (150-450); RBC 4.06 m/uL (3.80-5.40); RDW 14.6 % (11.5-15.5); WBC 11.3 k/uL (3.8-10.6)
[2021-06-29 15:21] LABS: HGB 11.6 gm/dL (11.4-16.0)
[2021-06-29 15:22] LABS: ALT 10 U/L (4-34); AST 18 U/L (14-36); African American GFR (CKD) >90 (>60 ml/min/1.73 sqM); Albumin 3.4 g/dL (3.5-5.0); Alkaline Phosphatase 73 U/L (38-126); Anion Gap 4 mmol/L; Blood Urea Nitrogen 21 mg/dL (7-17); Calcium 9.3 mg/dL (8.4-10.2); Carbon Dioxide 39 mmol/L (22-30); Chloride 92 mmol/L (98-107); Glucose 98 mg/dL (74-99); Magnesium 1.7 mg/dL (1.6-2.3); Non-African American GFR(CKD) >90 (>60 ml/min/1.73 sqM); Potassium 4.4 mmol/L (3.5-5.1); Sodium 135 mmol/L (137-145); Total Bilirubin 0.6 mg/dL (0.2-1.3); Total Protein 6.5 g/dL (6.3-8.2)
[2021-06-29 15:29] LABS: Amorphous Sediment,Urine Rare /hpf; Appearance,Urine Cloudy (Clear); Bacteria,Urine Few /hpf; Bilirubin,Urine Negative (Negative); Blood,Urine Small (Negative); Color,Urine Yellow; Glucose,Urine (UA) Negative (Negative); Ketones,Urine 3+ (Negative); Leukocyte Esterase,Urine Large (Negative); Mucus,Urine Rare /hpf; Nitrite,Urine Positive (Negative); Protein,Urine 1+ (Negative); RBC,Urine 29 /hpf (0-5); Specific Gravity,Urine 1.016 (1.001-1.035); Squamous Epithelial Cell,Urine <1 /hpf (0-4); Urobilinogen,Urine <2.0 mg/dL (<2.0); WBC,Urine 140 /hpf (0-5)
[2021-06-29 15:29] LABS: INR 0.9 (<1.2); Prothrombin Time 9.4 sec (9.0-12.0)
--- NOTE | 2021-06-29 15:31 | XR ---
EXAMINATION TYPE: XR chest 2V DATE OF EXAM: 06/29/2021 COMPARISON: 04/27/2021 TECHNIQUE: PA and lateral views submitted. HISTORY: Weakness FINDINGS: The lungs are clear and there is no pneumothorax, pleural effusion, or focal pneumonia. Hyperinflat ion. Heart size normal. Atherosclerotic change aorta. No overt failure. Tiny granuloma right lung bas e stable. Degenerative changes of the spine. IMPRESSION: 1. Correlate for COPD.
[2021-06-29 15:33] LABS: Partial Thromboplastin Time 17.9 sec (22.0-30.0)
[2021-06-29] MEDS ORDERED: ACETAMINOPHEN TAB 325 MG TAB PO PRN (15:44)
[2021-06-29] MEDS ORDERED: NALOXONE 0.4 MG/ML 1 ML VIAL IV PRN (15:44)
[2021-06-29] MEDS: SODIUM CHLORIDE 0.9% 1,000 ML IV SCH ×2 (16:13→21:53)
--- NOTE | 2021-06-29 18:34 | HP ---
HISTORY AND PHYSICAL DATE OF SERVICE: 06/29/2021 CHIEF COMPLAINT: Dehydration. HISTORY OF PRESENT ILLNESS: This 76-year-old woman with a past medical history of multiple medical problems, including CHF, COPD, diabetes mellitus, hypertension, history of DJD, being followed Dr. Sears in the outpatient setting, was admitted with dehydration. The patient also had chronic confusion. Patient was unable to provide a coherent history. Most of the history is taken from my discussion with staff and review of the chart at this time. The patient was found to have some dehydration with elevation of the BUN and the patient also had significant UTI with WBC and and patient was admitted for further evaluation and treatment. There is no history of any fever, rigor or chills. No history of trauma at this time. PAST MEDICAL HISTORY: History of CHF, COPD, diabetes mellitus, hypertension, history of DJD, history of respiratory disorder, history of hypothyroidism, previously admitted with chronic COPD. HOME MEDICATIONS: Reviewed. They include metformin, lisinopril, Flomax, Protonix, nystatin, metoprolol, levothyroxine, DuoNeb, Symbicort and albuterol p.r.n. Doses and other medications are reviewed. ALLERGIES: BACITRACIN, PENICILLIN, POLYMYXIN, LEVAQUIN. FAMILY HISTORY: History of thyroid cancer and liver cancer in the family. SOCIAL HISTORY: Previous history of smoking. REVIEW OF SYSTEMS: Review of systems could not be taken; the patient is confused. PHYSICAL EXAMINATION: Patient is conscious, confused. Pulse 97, blood pressure 146/64, respiration 18, temperature 98.6, pulse ox 100% on 3 L. HEENT: Conjunctivae normal. Oral mucosa is dry. NECK: No jugular venous distention. No carotid bruit. No lymph node enlargement. CARDIOVASCULAR: S1, S2 muffled. RESPIRATION: Breath sounds diminished at the bases. A few scattered rhonchi and crackles. ABDOMEN: Soft, nontender. LEGS: No edema. No swelling. NERVOUS SYSTEM: Diffusely weak and emaciated. SKIN: No ulcer, rash, bleeding. JOINTS: No active deforming arthropathy. LABS: WBC 11.3, hemoglobin 7.6, sodium 135. Other labs are noted. Chest x-ray, which was personally reviewed by me, showed some increased bronchovascular markings. Otherwise, no other acute abnormalities noted. ASSESSMENT: 1. Acute urinary tract infection with sepsis, present on admission. 2. Change in mental status, acute on chronic metabolic encephalopathy. 3. Dehydration, present on admission. 4. History of congestive heart failure. 5. Chronic obstructive pulmonary disease. 6. Diabetes mellitus, type 2. 7. History of degenerative joint disease. 8. History of vascular disorder. 9. History of chronic hypoxic respiratory failure. 10.History of advanced chronic obstructive pulmonary disease. 11.History of pericarditis. 12.Remote history of nicotine dependence. 13.Peripheral artery disease. 14.History of gout. 15.History of cardiac catheterization. 16.History of anxiety. 17.Gait dysfunction. 18.Severe protein-calorie malnutrition with body mass index of 17.8. RECOMMENDATIONS AND DISCUSSION: In this 76-year-old woman who presented with multiple complex medical issues, we will monitor the patient closely, continue the current medications, continue symptomatic treatment. I recommend antibiotics and gentle hydration. Prognosis is guarded because of the complex medical issues. Repeat labs. PT/OT evaluation. Will consult Dr. Sears. Guarded prognosis. Further recommendations to follow. A copy of this dictation is being forwarded to Dr. Sears, who is the primary physician. MMODL / IJN: [id number] / SUKUMAR
--- NOTE | 2021-06-29 19:45 | P.CNPUL ---
History of Present Illness Consult date: 06/29/21 Chief complaint: Dehydration History of present illness: 76-year-old here patient who presented to the emergency department due to concerns of dehydration. The patient comes from home and she also had altered mentation and confusion. She was a poor historian. Apparently she hasn't been drinking or eating over the past several days. She was feeling generalized weakness and fatigue and history was essentially limited. The patient was seen in the emergency department and the patient was found to have a temperature of 98.6, BP is 170/81 with a pulse ox of 99% on room air. The the white cell count was 11.3 with hemoglobin 11.6 and a platelet count of 6 and 38, sodium was at 135 with a BUN of 21 and a creatinine of 0.4 and a glucose of 98. Coagulation profile was essentially within normal limits. Total protein was 6.5 with an albumin of 3.4. The patient had a troponin that was less than 0.01. ProBNP level was 262. UA was abnormal with a total of 140 WBC and 29 RBCs.. The patient met sepsis criteria. Blood culture was sent. Lactic acid was sent an EKG showed a normal sinus rhythm with a heart rate of 99 without any acute ischemic changes. Note that the patient has had previous infection with urine and the most recent of which was in 11/10/2020 with E. coli. The patient was started on IV Rocephin. The patient was given IV fluids with normal saline today to 150 mL an hour. The lactic acid level came back at 0.8. Patient is on 3 L about 2 by nasal cannula with a pulse ox of 99%. Review of Systems Constitutional: Reports weakness, Denies chills, Denies fever Eyes: denies blurred vision, denies pain Ears, nose, mouth and throat: Denies headache, Denies sore throat Cardiovascular: Denies chest pain, Denies shortness of breath Respiratory: Reports cough with sputum, Reports dyspnea, Reports home oxygen, Reports respiratory infections, Denies cough Gastrointestinal: Denies abdominal pain, Denies diarrhea, Denies nausea, Denies vomiting Genitourinary: Denies dysuria, Denies hematuria Musculoskeletal: Denies myalgias Integumentary: Denies pruritus, Denies rash Neurological: Denies numbness, Denies weakness Psychiatric: Denies anxiety, Denies depression Endocrine: Denies fatigue, Denies weight change Past Medical History Past Medical History: Heart Failure, COPD, Diabetes Mellitus, Hypertension, Osteoarthritis (OA), Respiratory Disorder, Thyroid Disorder, Vascular Disorder Additional Past Medical History / Comment(s): Pt recently admitted to [facility] on 10/23/20 with acute exacerbation chronic COPD, acute on chronic hypoxic hypercarbic respiratory failure, acute purulent tracheobronchitis, possible new onset diabetes, hyponatremia/hypovolemic, hyperkalemia, severe constipation/obstipation. Other hx: Advanced COPD, chronic hypoxic respiratory failure, home oxygen, 2010 pericarditis, former smoker, hypothyroidism, skeletal chest wall pain, chronic anxiety, anemia, PVD, past leg and foot wounds, recent L distal radius fracture/L knee wound sutures since removed, gout, confused at times per spouse and recently has been bedbound. History of Any Multi-Drug Resistant Organisms: None Reported Past Surgical History: Heart Catheterization, Hysterectomy, Tubal Ligation Additional Past Surgical History / Comment(s): 2011 cardiac cath, 2013 cardiac angiogram, colonoscopy/benign polypectomy, anal fistula repair, bilateral ca taract removals/lens implants. Past Anesthesia/Blood Transfusion Reactions: Previous Problems w/ Anesthesia, Postoperative Nausea & Vomiting (PONV) Additional Past Anesthesia/Blood Transfusion Reaction / Comment(s): oxygen was "low" post op, nausea one time Past Psychological History: Anxiety Smoking Status: Former smoker Past Alcohol Use History: None Reported Past Drug Use History: None Reported - Past Family History Mother History Unknown: Yes Family Medical History: Cancer, Thyroid Disorder Additional Family Medical History / Comment(s): Liver Cancer Father History Unknown: Yes Family Medical History: Cancer Medications and Allergies Home Medications Medication Instructions Recorded Confirmed Type Budesonide-Formot 160-4.5 Mcg 2 puff INHALATION RT-BID #1 vial 12/05/18 06/29/21 Rx [Symbicort 160-4.5 Mcg Inhaler] Levothyroxine Sodium [Synthroid] 150 mcg PO DAILY #30 tablet 12/05/18 06/29/21 Rx Albuterol Sulfate [Proair Hfa] 2 puff INHALATION RT-BID 09/25/20 06/29/21 History Loratadine [Claritin] 10 mg PO DAILY 10/23/20 06/29/21 History lisinopriL [Zestril] 20 mg PO BID 03/29/21 06/29/21 History Metoprolol Tartrate [Lopressor] 25 mg PO BID #60 tab 04/03/21 06/29/21 Rx Budesonide [Pulmicort] 1 mg INHALATION RT-BID ml 05/06/21 06/29/21 Rx Ipratropium-Albuterol Nebulize 3 ml INHALATION RT-QID ml 05/06/21 06/29/21 Rx [Duoneb 0.5 mg-3 mg/3 ml Soln] Ammonium Lactate Lotion 1 applic TOPICAL BID 06/29/21 06/29/21 History [Lac-Hydrin 12% Lotion] Folic Acid 1 mg PO DAILY 06/29/21 06/29/21 History Pantoprazole [Protonix] 40 mg PO DAILY 06/29/21 06/29/21 History Tamsulosin [Flomax] 0.4 mg PO DAILY 06/29/21 06/29/21 History metFORMIN HCL ER [Glucophage XR] 500 mg PO BID 06/29/21 06/29/21 History Allergies Allergy/AdvReac Type Severity Reaction Status Date / Time bacitracin Allergy Rash/Hives Verified 06/29/21 17:29 [From Neosporin ([id number])] neomycin Allergy Rash/Hives Verified 06/29/21 17:29 [From Neosporin ([id number])] Penicillins Allergy Rash/Hives Verified 06/29/21 17:29 polymyxin B Allergy Rash/Hives Verified 06/29/21 17:29 [From Neosporin ([id number])] trimethoprim [From Polytrim] Allergy Rash/Hives Verified 06/29/21 17:29 levofloxacin [From Levaquin] AdvReac WEAKNESS Verified 06/29/21 17:29 ELDA/POLY/DEX Allergy Rash/Hives Uncoded 06/29/21 17:30 Physical Exam Vitals: Vital Signs Temp Pulse Resp BP Pulse Ox 06/29/21 16:10 97 18 146/64 100 06/29/21 14:49 20 06/29/21 14:38 98.6 F 106 H 16 170/81 100 Intake and Output 06/29/21 06/29/21 06/29/21 06:59 14:59 22:59 Other: Weight 49.895 kg GENERAL EXAM: Alert, pleasant, 75-year-old frail looking white female, looks older than stated age, currently on 3L of oxygen, thin built comfortable in no apparent distress. HEAD: Normocephalic/atraumatic. EYES: Normal reaction of pupils, equal size. Conjunctiva pink, sclera white. NOSE: Clear with pink turbinates. THROAT: No erythema or exudates. NECK: No masses, no JVD, no thyroid enlargement, no adenopathy. CHEST: No chest wall deformity. Symmetrical expansion. LUNGS: Diminished breath sounds equal air entry with end expiratory wheezes CVS: Regular rate and rhythm, normal S1 and S2, no gallops, no murmurs, no rubs ABDOMEN: Soft, nontender. No hepatosplenomegaly, normal bowel sounds, no guarding or rigidity. EXTREMITIES: No clubbing, no edema, no cyanosis, 2+ pulses and upper and lower extremities. MUSCULOSKELETAL: Muscle strength and tone normal. SPINE: No scoliosis or deformity SKIN: No rashes CENTRAL NERVOUS SYSTEM: Alert No focal deficits, tone is normal in all 4 extremities. Results - Laboratory Findings CBC and BMP: 06/29/21 14:56 06/29/21 14:56 PT/INR, D-dimer PT 9.4 sec (9.0-12.0) 06/29/21 14:56 INR 0.9 (<1.2) 06/29/21 14:56 Abnormal lab findings: Abnormal Labs 06/29/21 06/29/21 06/29/21 14:56 14:56 14:56 WBC 11.3 H MCHC 30.2 L Neutrophils # 9.0 H APTT 17.9 L Sodium 135 L Chloride 92 L Carbon Dioxide 39 H BUN 21 H Creatinine 0.42 L Albumin 3.4 L Urine Appearance Urine Protein Urine Ketones Urine Blood Urine Nitrite Ur Leukocyte Esterase Urine RBC Urine WBC Urine WBC Clumps Amorphous Sediment Urine Bacteria Urine Mucus 06/29/21 14:59 WBC MCHC Neutrophils # APTT Sodium Chloride Carbon Dioxide BUN Creatinine Albumin Urine Appearance Cloudy H Urine Protein 1+ H Urine Ketones 3+ H Urine Blood Small H Urine Nitrite Positive H Ur Leukocyte Esterase Large H Urine RBC 29 H Urine WBC 140 H Urine WBC Clumps Few H Amorphous Sediment Rare H Urine Bacteria Few H Urine Mucus Rare H - Diagnostic Findings Chest x-ray: image reviewed Assessment and Plan Plan: 1 sepsis secondary to underlying UTI, hemodynamically stable at this point in time. Lactic acid level is low. Patient was started on IV fluids and IV Rocephin. 2 advanced COPD with a baseline FEV1 of 20% of predicted and the patient has chronic hypoxic respiratory failure 3 chronic hypoxic and hypercapnic respiratory failure maintained on O2 4 history of smoking 5 hypertension 6 hypothyroidism 7. Poor Functional status and history of frequent falls and history of fracture of the left upper extremity 8 history of previous UTI with E. coli 9 cachexia with a body mass index of 17.8. 10 history of congestion heart failure 11 diabetes mellitus type 2 13 degenerative arthritis 14 chronic constipation Plan Admit this patient to the hospital Continue IV Rocephin Urine cultures and blood cultures Normal saline at the rate of 150 mL an hour Resume all medications No need for pressors at this point in time COVID 19 testing is been negative We'll sign off. No need for ICU admission at this point in time.
[2021-06-29] MEDS ORDERED: BUDESONIDE 1 MG/2 ML NEBU INHALATION SCH (20:00)
[2021-06-29] MEDS ORDERED: ALBUTEROL NEBULIZED 2.5 MG/3 ML INHALATION SCH (20:00)
[2021-06-29] MEDS ORDERED: ALBUTEROL HFA INHALER INHALATION SCH (20:00)
[2021-06-29] MEDS: BUDESONIDE 1 MG/2 ML NEBU INHALATION SCH (21:03)
[2021-06-29] MEDS: IPRATROPIUM-ALBUTEROL 3 ML NEB INHALATION SCH (21:03)
[2021-06-29] MEDS: SYMBICORT 160-4.5 MCG INHALER INHALATION SCH ×2 (21:05→21:09)
[2021-06-29] MEDS ORDERED: IPRATROPIUM-ALBUTEROL 3 ML NEB INHALATION PRN (21:36)
[2021-06-29] MEDS: lisinopriL 20 MG TAB PO SCH (22:03)
[2021-06-29] MEDS: metFORMIN 500 MG TAB PO SCH (22:03)
[2021-06-29] MEDS: HEPARIN SODIUM,PORCINE/PF 5,000 UNIT/0.5 ML SYRINGE SQ SCH (22:03)
[2021-06-29] MEDS: METOPROLOL TARTRATE 25 MG TAB PO SCH (22:03)
[2021-06-30] MEDS: LEVOTHYROXINE 75 MCG TAB PO SCH (06:29)
[2021-06-30] MEDS: SODIUM CHLORIDE 0.9% 1,000 ML IV SCH ×2 (07:22→12:18)
[2021-06-30 07:47] LABS: Glucose,Whole Blood 136 mg/dL (75-99)
[2021-06-30] MEDS: IPRATROPIUM-ALBUTEROL 3 ML NEB INHALATION SCH ×4 (09:04→21:16)
[2021-06-30] MEDS: SYMBICORT 160-4.5 MCG INHALER INHALATION SCH ×2 (09:04→21:16)
[2021-06-30] MEDS: BUDESONIDE 1 MG/2 ML NEBU INHALATION SCH ×2 (09:04→21:16)
[2021-06-30] MEDS: TAMSULOSIN 0.4 MG CAP.ER.24H PO SCH (09:14)
[2021-06-30] MEDS: lisinopriL 20 MG TAB PO SCH ×2 (09:14→21:57)
[2021-06-30] MEDS: metFORMIN 500 MG TAB PO SCH ×2 (09:14→21:57)
[2021-06-30] MEDS: HEPARIN SODIUM,PORCINE/PF 5,000 UNIT/0.5 ML SYRINGE SQ SCH ×2 (09:14→21:57)
[2021-06-30] MEDS: METOPROLOL TARTRATE 25 MG TAB PO SCH ×2 (09:14→21:57)
[2021-06-30] MEDS: PANTOPRAZOLE 40 MG TABLET PO SCH (09:14)
[2021-06-30] MEDS: FOLIC ACID 1 MG TAB PO SCH (09:14)
[2021-06-30 11:05] LABS: Basophils # (A) 0.07 X 10*3/uL (0.00-0.10); Basophils % (A) 0.8 %; Eosinophils # (A) 0.16 X 10*3/uL (0.04-0.35); Eosinophils % (A) 1.9 %; HCT 30.4 % (37.2-46.3); HGB 8.4 g/dL (12.0-15.0); Lymphocytes # (A) 1.09 X 10*3/uL (0.90-5.00); Lymphocytes % (A) 12.7 %; MCH 26.8 pg (27.0-32.0); MCHC 27.6 g/dL (32.0-37.0); MCV 96.8 fL (80.0-97.0); Mean Platelet Volume 9.9 fL (9.5-12.2); Monocytes # (A) 0.48 X 10*3/uL (0.20-1.00); Monocytes % (A) 5.6 %; Neutrophils # (A) 6.75 X 10*3/uL (1.80-7.70); Neutrophils % (A) 78.3 %; Platelet Count 299 X 10*3/uL (140-440); RBC 3.14 X 10*6/uL (4.10-5.20); RDW 14.7 % (11.5-14.5); WBC 8.61 X 10*3/uL (4.50-10.00)
[2021-06-30 11:41] VITALS: BMI 17.7
[2021-06-30 12:12] LABS: Glucose,Whole Blood 119 mg/dL (75-99)
[2021-06-30] MEDS: MULTIVITAMINS, THERA 1 EACH TAB PO SCH (12:18)
[2021-06-30 12:38] LABS: African American GFR (CKD) 127.1 (60.0-200.0); Anion Gap 13.2 mmol/L (10.00-18.00); Blood Urea Nitrogen 17.7 mg/dL (9.0-27.0); Calcium 8.5 mg/dL (8.7-10.3); Carbon Dioxide 28.8 mmol/L (20.0-27.5); Non-African American GFR(CKD) 109.7 (60.0-200.0); Potassium 4.3 mmol/L (3.5-5.5)
--- NOTE | 2021-06-30 14:32 | P.PN ---
Subjective Progress Note Date: 06/30/21 Principal diagnosis: Altered mental status 76-year-old here patient who presented to the emergency department due to concerns of dehydration. The patient comes from home and she also had altered mentation and confusion. She was a poor historian. Apparently she hasn't been drinking or eating over the past several days. She was feeling generalized weakness and fatigue and history was essentially limited. The patient was seen in the emergency department and the patient was found to have a temperature of 98.6, BP is 170/81 with a pulse ox of 99% on room air. The the white cell count was 11.3 with hemoglobin 11.6 and a platelet count of 6 and 38, sodium was at 135 with a BUN of 21 and a creatinine of 0.4 and a glucose of 98. Coagulation profile was essentially within normal limits. Total protein was 6.5 with an albumin of 3.4. The patient had a troponin that was less than 0.01. ProBNP level was 262. UA was abnormal with a total of 140 WBC and 29 RBCs.. The patient met sepsis criteria. Blood culture was sent. Lactic acid was sent an EKG showed a normal sinus rhythm with a heart rate of 99 without any acute ischemic changes. Note that the patient has had previous infection with urine and the most recent of which was in 11/10/2020 with E. coli. The patient was started on IV Rocephin. The patient was given IV fluids with normal saline today to 150 mL an hour. The lactic acid level came back at 0.8. Patient is on 3 L about 2 by nasal cannula with a pulse ox of 99%. On 06/26/2021 patient seen in follow-up on medical surgical floor, she is awake and alert, mentation has significantly improved, she sits up in the recliner, she is currently on 3L of oxygen, pulse ox is 98%, afebrile, she is oriented 3, she is talking to a family member on the phone, denies any acute distress, breathing comfortably, no fever or chills, vital signs have been stable overnight. She is being treated for a urinary tract infection, urine culture has been sent, pending, she is on Rocephin. Her breathing is stable, and she is on nebulized DuoNeb and Symbicort. Lung sounds are diminished, no rhonchi or wheezing. Today's labs have been reviewed, with cell count is improving is down 3.6, hemoglobin is 8.4, her electrolytes and renal profile were unremarkable. Objective - Vital Signs Vital signs: Vital Signs Temp 98.1 F 06/30/21 07:38 Pulse 71 06/30/21 12:53 Resp 16 06/30/21 09:21 BP 126/76 06/30/21 07:38 Pulse Ox 98 06/30/21 12:49 Intake & Output 06/29/21 06/30/21 06/30/21 18:59 06:59 18:59 Intake Total 600 Output Total 250 Balance 350 Weight 49.895 kg 49.895 kg 49.895 kg Intake: Intake, IV Titration 600 Amount Sodium Chloride 0.9% 1, 600 000 ml @ 50 mls/hr IV . Q20H [facility] Rx#:[id number] Output: Urine 250 Other: Voiding Method Indwelling Catheter Indwelling Catheter # Bowel Movements 0 - Exam GENERAL EXAM: Alert, very pleasant, chronically ill-looking, 76-year-old frail white female, on 3 L of oxygen, with a pulse ox of 98% comfortable in no apparent distress. HEAD: Normocephalic/atraumatic. EYES: Normal reaction of pupils, equal size. Conjunctiva pink, sclera white. NOSE: Clear with pink turbinates. THROAT: No erythema or exudates. NECK: No masses, no JVD, no thyroid enlargement, no adenopathy. CHEST: No chest wall deformity. Symmetrical expansion. LUNGS: Equal air entry with no crackles, wheeze, rhonchi or dullness. CVS: Regular rate and rhythm, normal S1 and S2, no gallops, no murmurs, no rubs ABDOMEN: Soft, nontender. No hepatosplenomegaly, normal bowel sounds, no guarding or rigidity. EXTREMITIES: No clubbing, no edema, no cyanosis, 2+ pulses and upper and lower extremities. MUSCULOSKELETAL: Muscle strength and tone normal. SPINE: No scoliosis or deformity SKIN: No rashes CENTRAL NERVOUS SYSTEM: Alert and oriented -3. No focal deficits, tone is normal in all 4 extremities. PSYCHIATRIC: Alert and oriented -3. Appropriate affect. Intact judgment and insight. - Labs CBC & Chem 7: 06/30/21 05:12 06/30/21 05:12 Labs: Abnormal Lab Results - Last 24 Hours (Table) 06/29/21 06/29/21 06/29/21 Range/Units 14:56 14:56 14:56 WBC 11.3 H (3.8-10.6) k/uL RBC (4.10-5.20) X 10*6/uL Hgb (12.0-15.0) g/dL Hct (37.2-46.3) % MCH (27.0-32.0) pg MCHC 30.2 L (31.0-37.0) g/dL RDW (11.5-14.5) % Immature Gran # (0.00-0.04) X 10*3/uL Neutrophils # 9.0 H (1.3-7.7) k/uL APTT 17.9 L (22.0-30.0) sec Sodium 135 L (137-145) mmol/L Chloride 92 L (98-107) mmol/L Carbon Dioxide 39 H (22-30) mmol/L BUN 21 H (7-17) mg/dL Creatinine 0.42 L (0.52-1.04) mg/dL BUN/Creatinine Ratio (12.00-20.00) Ratio Glucose (70-110) mg/dL POC Glucose (mg/dL) (75-99) mg/dL Calcium (8.7-10.3) mg/dL Albumin 3.4 L (3.5-5.0) g/dL Urine Appearance (Clear) Urine Protein (Negative) Urine Ketones (Negative) Urine Blood (Negative) Urine Nitrite (Negative) Ur Leukocyte Esterase (Negative) Urine RBC (0-5) /hpf Urine WBC (0-5) /hpf Urine WBC Clumps (None) /hpf Amorphous Sediment (None) /hpf Urine Bacteria (None) /hpf Urine Mucus (None) /hpf 06/29/21 06/30/21 06/30/21 Range/Units 14:59 05:12 05:12 WBC (3.8-10.6) k/uL RBC 3.14 L (4.10-5.20) X 10*6/uL Hgb 8.4 L (12.0-15.0) g/dL Hct 30.4 L (37.2-46.3) % MCH 26.8 L (27.0-32.0) pg MCHC 27.6 L (31.0-37.0) g/dL RDW 14.7 H (11.5-14.5) % Immature Gran # 0.06 H (0.00-0.04) X 10*3/uL Neutrophils # (1.3-7.7) k/uL APTT (22.0-30.0) sec Sodium (137-145) mmol/L Chloride (98-107) mmol/L Carbon Dioxide 28.8 H (22-30) mmol/L BUN (7-17) mg/dL Creatinine 0.3 L (0.52-1.04) mg/dL BUN/Creatinine Ratio 59.00 H (12.00-20.00) Ratio Glucose 52 L (70-110) mg/dL POC Glucose (mg/dL) (75-99) mg/dL Calcium 8.5 L (8.7-10.3) mg/dL Albumin (3.5-5.0) g/dL Urine Appearance Cloudy H (Clear) Urine Protein 1+ H (Negative) Urine Ketones 3+ H (Negative) Urine Blood Small H (Negative) Urine Nitrite Positive H (Negative) Ur Leukocyte Esterase Large H (Negative) Urine RBC 29 H (0-5) /hpf Urine WBC 140 H (0-5) /hpf Urine WBC Clumps Few H (None) /hpf Amorphous Sediment Rare H (None) /hpf Urine Bacteria Few H (None) /hpf Urine Mucus Rare H (None) /hpf 06/30/21 06/30/21 Range/Units 07:46 12:11 WBC (3.8-10.6) k/uL RBC (4.10-5.20) X 10*6/uL Hgb (12.0-15.0) g/dL Hct (37.2-46.3) % MCH (27.0-32.0) pg MCHC (31.0-37.0) g/dL RDW (11.5-14.5) % Immature Gran # (0.00-0.04) X 10*3/uL Neutrophils # (1.3-7.7) k/uL APTT (22.0-30.0) sec Sodium (137-145) mmol/L Chloride (98-107) mmol/L Carbon Dioxide (22-30) mmol/L BUN (7-17) mg/dL Creatinine (0.52-1.04) mg/dL BUN/Creatinine Ratio (12.00-20.00) Ratio Glucose (70-110) mg/dL POC Glucose (mg/dL) 136 H 119 H (75-99) mg/dL Calcium (8.7-10.3) mg/dL Albumin (3.5-5.0) g/dL Urine Appearance (Clear) Urine Protein (Negative) Urine Ketones (Negative) Urine Blood (Negative) Urine Nitrite (Negative) Ur Leukocyte Esterase (Negative) Urine RBC (0-5) /hpf Urine WBC (0-5) /hpf Urine WBC Clumps (None) /hpf Amorphous Sediment (None) /hpf Urine Bacteria (None) /hpf Urine Mucus (None) /hpf Microbiology - Last 24 Hours (Table) 06/29/21 14:59 Urine Culture - Preliminary Urine,Voided Assessment and Plan Plan: Assessment: #1. Sepsis related to underlying UTI, urine culture is pending, patient is covered with Rocephin, hemodynamically patient is stable, lactic acid was low, patient continues on IV fluids and antibiotics. When medically improving #2. Altered mental status related to the above, improved #3. Advanced COPD with a baseline FEV1 of 20% of predicted and the patient has chronic hypoxic respiratory failure #4. Chronic hypoxic and hypercapnic respiratory failure maintained on O2 #5. History of smoking #6. Hypertension #7. Hypothyroidism #8. Poor Functional status and history of frequent falls and history of fracture of the left upper extremity #9. History of previous UTI with E. coli #10. Cachexia with a body mass index of 17.8. #11. History of congestion heart failure #12. Diabetes mellitus type 2 #14. Degenerative arthritis Plan: Patient is improving Mentation has significantly improved Breathing is at baseline, Continue Symbicort and DuoNeb nebulized treatments COPD is stable Continue Rocephin, urine cultures are pending No acute pulmonary issues at this time Pulmonary service will sign off and follow on as-needed basis I performed a history & physical examination of the patient and discussed their management with my nurse practitioner, Galina Mar. I reviewed the nurse practitioner's note and agree with the documented findings and plan of care. Lung sounds are positive for dim breath sounds throughout the lung bauman. The findings and the impression was discussed with the patient. I attest to the documentation by the nurse practitioner. Time with Patient: Less than 30
[2021-06-30 16:52] LABS: Glucose,Whole Blood 178 mg/dL (75-99)
[2021-06-30 21:00] LABS: Glucose,Whole Blood 147 mg/dL (75-99)
--- NOTE | 2021-06-30 22:22 | P.PN ---
Subjective Progress Note Date: 06/30/21 This is a 76-year-old female who was recently admitted with change in mentation along with acute urinary tract infection with dehydration and is being closely monitored. Pulmonary consulted for Copd. Patient is continued on breathing inhalational treatments, gentle IV hydration and IV ceftriaxone. Awaiting finalized urine cultures. Preliminary showing gram negative bacilli. Patient is also weak and PT/OT therapy recommending ECF. Social work following and working on accepting facilities. Patient is more alert and answering appropriately to questions and commands. Patient is eating although very little as she states she does not have much of an appetite. Encouraged oral intake. Will decrease IV fluids and repeat am labs. Labs: WBC is 8.61, hemoglobin is 8.4, platelets are 299, sodium is 138, potassium 4.3, BUN 17.7, creatinine 0.3, calcium 8.5 Review of systems: Constitutional: No reports of fatigue, fever, or chills Cardiovascular: No reports of chest pain or palpitations Respiratory: No reports of worsening shortness of breath, reports occasional cough GI: No reports of nausea, vomiting, or diarrhea, reports very little intake : No reports of dysuria or retention Neurovascular: reports of generalized weakness All medications have been reviewed Active Medications Acetaminophen (Acetaminophen Tab 325 Mg Tab) 650 mg PO Q6HR PRN PRN Reason: Mild Pain or Fever > 100.5 Albuterol/Ipratropium (Ipratropium-Albuterol 3 Ml Neb) 3 ml INHALATION RT-QID [facility] Last Admin: 06/30/21 12:44 Dose: 3 ml Documented by: Albuterol/Ipratropium (Ipratropium-Albuterol 3 Ml Neb) 3 ml INHALATION RT-Q2H PRN PRN Reason: Shortness Of Breath Or Wheezing Budesonide (Budesonide 1 Mg/2 Ml Nebu) 1 mg INHALATION RT-BID [facility] Last Admin: 06/30/21 09:04 Dose: 1 mg Documented by: Budesonide/Formoterol Fumarate (Symbicort 160-4.5 Mcg Inhaler) 2 puff INHALATION RT-BID [facility] Last Admin: 06/30/21 09:04 Dose: 2 puff Documented by: Folic Acid (Folic Acid 1 Mg Tab) 1 mg PO DAILY [facility] Last Admin: 06/30/21 09:14 Dose: 1 mg Documented by: Heparin Sodium (Porcine) (Heparin Sodium,Porcine/Pf 5,000 Unit/0.5 Ml Syringe) 5,000 unit SQ Q12HR [facility] Last Admin: 06/30/21 09:14 Dose: 5,000 unit Documented by: Ceftriaxone Sodium 2 gm/ (Sodium Chloride) 50 mls @ 100 mls/hr IVPB Q24HR [facility] Last Admin: 06/30/21 09:42 Dose: 100 mls/hr Documented by: Sodium Chloride (Saline 0.9%) 1,000 mls @ 75 mls/hr IV .[id number] [facility] Last Admin: 06/30/21 07:22 Dose: Not Given Documented by: Sodium Chloride (Saline 0.9%) 1,000 mls @ 50 mls/hr IV .Q20H [facility] Last Admin: 06/30/21 12:18 Dose: 50 mls/hr Documented by: Levothyroxine Sodium (Levothyroxine 75 Mcg Tab) 150 mcg PO 0630 [facility] Last Admin: 06/30/21 06:29 Dose: 150 mcg Documented by: Lisinopril (Lisinopril 20 Mg Tab) 20 mg PO BID [facility] Last Admin: 06/30/21 09:14 Dose: 20 mg Documented by: Metformin HCl (Metformin 500 Mg Tab) 500 mg PO BID [facility] Last Admin: 06/30/21 09:14 Dose: 500 mg Documented by: Metoprolol Tartrate (Metoprolol Tartrate 25 Mg Tab) 25 mg PO BID [facility] Last Admin: 06/30/21 09:14 Dose: 25 mg Documented by: Multivitamins (Multivitamins, Thera 1 Each Tab) 1 each PO DAILY@1200 [facility] Last Admin: 06/30/21 12:18 Dose: 1 each Documented by: Naloxone HCl (Naloxone 0.4 Mg/Ml 1 Ml Vial) 0.2 mg IV Q2M PRN PRN Reason: Opioid Reversal Pantoprazole Sodium (Pantoprazole 40 Mg Tablet) 40 mg PO DAILY [facility] Last Admin: 06/30/21 09:14 Dose: 40 mg Documented by: Tamsulosin HCl (Tamsulosin 0.4 Mg Cap.Er.24h) 0.4 mg PO DAILY [facility] Last Admin: 06/30/21 09:14 Dose: 0.4 mg Documented by: Physical Exam: Gen: This is a 76-year-old female who is awake, alert and oriented 3, well-developed, well-nourished. Temp is 98.8 F, pulse is 72, respirations are 16, blood pressure is 116/71, oxygen saturation is 96% on 2 L via nasal cannula HEENT: Head is atraumatic, normocephalic. Pupils equal, round. Sclerae is anicteric. NECK: Supple. No JVD. No lymphadenopathy. No thyromegaly. LUNGS: Breath sounds diminished with some mild scattered rhonchi noted. No intercostal retractions. HEART: S1, S2 are muffled ABDOMEN: Soft. Bowel sounds are present. No masses. No tenderness. EXTREMITIES: No pedal edema. No calf tenderness. NEUROLOGICAL: Patient is awake, alert and oriented 3, no focal deficits . Assessment: Acute urinary tract infection with sepsis, present on admission Change in mental status, acute on chronic metabolic encephalopathy dehydration, present on admission History of congestive heart failure chronic obstructive pulmonary disease diabetes mellitus type 2 History of degenerative joint disease History of vascular disorder history of chronic hypoxic respiratory failure History of advanced chronic obstructive pulmonary disease History of endocarditis remote history of nicotine dependence peripheral artery disease History of gout history of cardiac catheterization history of anxiety Gait dysfunction Severe protein calorie malnutrition with a body mass index of 17.8 Full Code Plan: Recommend to continue with current medications and management. Patient co ntinues on IV ceftriaxone while awaiting finalized urine cultures. Preliminary showing gram negative bacilli. continue with gentle IV hydration and will repeat am labs. Continue to increase activity as tolerated and encouraged oral intake. Pulmonary following as needed and recommend to continue with current regimen. Social work following and working on accepting facilities as ECF is being planned for continued strength and mobility. Will repeat labs with possible discharge in 24-48 hours. Due to multiple complex medical issues prognosis is guarded. Objective - Vital Signs Vital signs: Vital Signs Temp 98.8 F 06/30/21 14:00 Pulse 72 06/30/21 14:00 Resp 16 06/30/21 14:00 BP 116/71 06/30/21 14:00 Pulse Ox 96 06/30/21 14:00 Intake & Output 06/29/21 06/30/21 06/30/21 18:59 06:59 18:59 Intake Total 600 Output Total 250 Balance 350 Weight 49.895 kg 49.895 kg 49.895 kg Intake: Intake, IV Titration 600 Amount Sodium Chloride 0.9% 1, 600 000 ml @ 50 mls/hr IV . Q20H [facility] Rx#:[id number] Output: Urine 250 Other: Voiding Method Indwelling Catheter Indwelling Catheter # Bowel Movements 0 - Labs CBC & Chem 7: 06/30/21 05:12 06/30/21 05:12 Labs: Abnormal Lab Results - Last 24 Hours (Table) 06/30/21 06/30/21 06/30/21 Range/Units 05:12 05:12 07:46 RBC 3.14 L (4.10-5.20) X 10*6/uL Hgb 8.4 L (12.0-15.0) g/dL Hct 30.4 L (37.2-46.3) % MCH 26.8 L (27.0-32.0) pg MCHC 27.6 L (32.0-37.0) g/dL RDW 14.7 H (11.5-14.5) % Immature Gran # 0.06 H (0.00-0.04) X 10*3/uL Carbon Dioxide 28.8 H (20.0-27.5) mmol/L Creatinine 0.3 L (0.6-1.5) mg/dL BUN/Creatinine Ratio 59.00 H (12.00-20.00) Ratio Glucose 52 L (70-110) mg/dL POC Glucose (mg/dL) 136 H (75-99) mg/dL Calcium 8.5 L (8.7-10.3) mg/dL 06/30/21 Range/Units 12:11 RBC (4.10-5.20) X 10*6/uL Hgb (12.0-15.0) g/dL Hct (37.2-46.3) % MCH (27.0-32.0) pg MCHC (32.0-37.0) g/dL RDW (11.5-14.5) % Immature Gran # (0.00-0.04) X 10*3/uL Carbon Dioxide (20.0-27.5) mmol/L Creatinine (0.6-1.5) mg/dL BUN/Creatinine Ratio (12.00-20.00) Ratio Glucose (70-110) mg/dL POC Glucose (mg/dL) 119 H (75-99) mg/dL Calcium (8.7-10.3) mg/dL Microbiology - Last 24 Hours (Table) 06/29/21 14:59 Urine Culture - Preliminary Urine,Voided
[2021-07-01] MEDS: LEVOTHYROXINE 75 MCG TAB PO SCH (05:54)
[2021-07-01 07:31] LABS: Glucose,Whole Blood 132 mg/dL (75-99)
[2021-07-01 07:49] LABS: Basophils % (A) 0 %; Eosinophils # (A) 0.2 k/uL (0-0.7); Eosinophils % (A) 3 %; Hypochromasia Marked; Lymphocytes # (A) 1.2 k/uL (1.0-4.8); Lymphocytes % (A) 19 %; MCH 28.5 pg (25.0-35.0); MCHC 30.2 g/dL (31.0-37.0); MCV 94.1 fL (80.0-100.0); Monocytes # (A) 0.4 k/uL (0-1.0); Monocytes % (A) 6 %; Neutrophils # (A) 4.6 k/uL (1.3-7.7); Neutrophils % (A) 69 %; Platelet Count 259 k/uL (150-450); RDW 14.8 % (11.5-15.5); WBC 6.7 k/uL (3.8-10.6)
[2021-07-01] MEDS: HEPARIN SODIUM,PORCINE/PF 5,000 UNIT/0.5 ML SYRINGE SQ SCH ×2 (08:00→20:23)
[2021-07-01] MEDS: TAMSULOSIN 0.4 MG CAP.ER.24H PO SCH (08:00)
[2021-07-01] MEDS: METOPROLOL TARTRATE 25 MG TAB PO SCH ×2 (08:01→20:23)
[2021-07-01] MEDS: PANTOPRAZOLE 40 MG TABLET PO SCH (08:01)
[2021-07-01] MEDS: lisinopriL 20 MG TAB PO SCH ×2 (08:01→20:24)
[2021-07-01] MEDS: metFORMIN 500 MG TAB PO SCH ×2 (08:01→20:24)
[2021-07-01] MEDS: FOLIC ACID 1 MG TAB PO SCH (08:01)
[2021-07-01 08:08] LABS: African American GFR (CKD) >90 (>60 ml/min/1.73 sqM); Anion Gap -2 mmol/L; Blood Urea Nitrogen 16 mg/dL (7-17); Calcium 8.8 mg/dL (8.4-10.2); Carbon Dioxide 36 mmol/L (22-30); Chloride 97 mmol/L (98-107); Glucose 126 mg/dL (74-99); Non-African American GFR(CKD) >90 (>60 ml/min/1.73 sqM); Potassium 3.8 mmol/L (3.5-5.1); Sodium 131 mmol/L (137-145)
[2021-07-01 08:15] LABS: HGB 9.4 gm/dL (11.4-16.0)
[2021-07-01] MEDS: IPRATROPIUM-ALBUTEROL 3 ML NEB INHALATION SCH ×4 (09:18→21:49)
[2021-07-01] MEDS: BUDESONIDE 1 MG/2 ML NEBU INHALATION SCH ×2 (09:28→21:49)
[2021-07-01] MEDS: SYMBICORT 160-4.5 MCG INHALER INHALATION SCH ×2 (09:28→21:49)
[2021-07-01] MEDS: SODIUM CHLORIDE 0.9% 1,000 ML IV SCH (11:50)
[2021-07-01 11:51] LABS: Glucose,Whole Blood 177 mg/dL (75-99)
[2021-07-01] MEDS: MULTIVITAMINS, THERA 1 EACH TAB PO SCH (12:14)
[2021-07-01 16:45] LABS: Glucose,Whole Blood 131 mg/dL (75-99)
[2021-07-01 20:29] LABS: Glucose,Whole Blood 183 mg/dL (75-99)
--- NOTE | 2021-07-02 05:26 | P.PN ---
Subjective Progress Note Date: 07/01/21 This is a 76-year-old female who was recently admitted with change in mentation along with acute urinary tract infection with dehydration and is being closely monitored. Pulmonary consulted for Copd. Patient is continued on breathing inhalational treatments, gentle IV hydration and IV ceftriaxone. Awaiting finalized urine cultures. Preliminary showing gram negative bacilli. Patient is also weak and PT/OT therapy recommending ECF. Social work following and working on accepting facilities. Patient is more alert and answering appropriately to questions and commands. Patient is eating although very little as she states she does not have much of an appetite. Encouraged oral intake. Will decrease IV fluids and repeat am labs. 07/01/2021 Patient is seen in follow-up this morning and awaiting urine cultures and continues on IV cefftriaxone. Patient is lethargic but easily arousable. Patient continued on 2L of oxygen via [place] and denies any worsening shortness of breath. Patient on gentle IV hydration. Patient is afebrile and WBC is 6.7. Ecf being planned and social work following working on accepting facilities. PT/OT working with the patient. Labs: WBC is 6.7, hemoglobin is 9.4, platelets are 259, sodium is 131, potassium 3.8, BUN 16, creatinine 0.48, calcium 8.8 Review of systems: Constitutional: No reports of fatigue, fever, or chills Cardiovascular: No reports of chest pain or palpitations Respiratory: No reports of worsening shortness of breath, reports occasional cough GI: No reports of nausea, vomiting, or diarrhea, reports very little intake : No reports of dysuria or retention Neurovascular: reports of generalized weakness All medications have been reviewed Active Medications Acetaminophen (Acetaminophen Tab 325 Mg Tab) 650 mg PO Q6HR PRN PRN Reason: Mild Pain or Fever > 100.5 Albuterol/Ipratropium (Ipratropium-Albuterol 3 Ml Neb) 3 ml INHALATION RT-QID [facility] Last Admin: 07/01/21 16:00 Dose: 3 ml Documented by: Albuterol/Ipratropium (Ipratropium-Albuterol 3 Ml Neb) 3 ml INHALATION RT-Q2H PRN PRN Reason: Shortness Of Breath Or Wheezing Budesonide (Budesonide 1 Mg/2 Ml Nebu) 1 mg INHALATION RT-BID [facility] Last Admin: 07/01/21 09:28 Dose: 1 mg Documented by: Budesonide/Formoterol Fumarate (Symbicort 160-4.5 Mcg Inhaler) 2 puff INHALATION RT-BID [facility] Last Admin: 07/01/21 09:28 Dose: 2 puff Documented by: Folic Acid (Folic Acid 1 Mg Tab) 1 mg PO DAILY [facility] Last Admin: 07/01/21 08:01 Dose: 1 mg Documented by: Heparin Sodium (Porcine) (Heparin Sodium,Porcine/Pf 5,000 Unit/0.5 Ml Syringe) 5,000 unit SQ Q12HR [facility] Last Admin: 07/01/21 08:00 Dose: 5,000 unit Documented by: Ceftriaxone Sodium 2 gm/ (Sodium Chloride) 50 mls @ 100 mls/hr IVPB Q24HR [facility] Last Admin: 07/01/21 08:01 Dose: 100 mls/hr Documented by: Sodium Chloride (Saline 0.9%) 1,000 mls @ 50 mls/hr IV .Q20H [facility] Last Admin: 07/01/21 11:50 Dose: Not Given Documented by: Levothyroxine Sodium (Levothyroxine 75 Mcg Tab) 150 mcg PO 0630 [facility] Last Admin: 07/01/21 05:54 Dose: 150 mcg Documented by: Lisinopril (Lisinopril 20 Mg Tab) 20 mg PO BID [facility] Last Admin: 07/01/21 08:01 Dose: 20 mg Documented by: Metformin HCl (Metformin 500 Mg Tab) 500 mg PO BID [facility] Last Admin: 07/01/21 08:01 Dose: 500 mg Documented by: Metoprolol Tartrate (Metoprolol Tartrate 25 Mg Tab) 25 mg PO BID [facility] Last Admin: 07/01/21 08:01 Dose: 25 mg Documented by: Multivitamins (Multivitamins, Thera 1 Each Tab) 1 each PO DAILY@1200 [facility] Last Admin: 07/01/21 12:14 Dose: 1 each Documented by: Naloxone HCl (Naloxone 0.4 Mg/Ml 1 Ml Vial) 0.2 mg IV Q2M PRN PRN Reason: Opioid Reversal Pantoprazole Sodium (Pantoprazole 40 Mg Tablet) 40 mg PO DAILY [facility] Last Admin: 07/01/21 08:01 Dose: 40 mg Documented by: Tamsulosin HCl (Tamsulosin 0.4 Mg Cap.Er.24h) 0.4 mg PO DAILY [facility] Last Admin: 07/01/21 08:00 Dose: 0.4 mg Documented by: Physical Exam: Gen: This is a 76-year-old female who is awake, alert and oriented 3, well- developed, well-nourished. Temp is 98.1 F, pulse is 72, respirations are 16, blood pressure is 145/81, oxygen saturation is 99% on 2 L via nasal cannula HEENT: Head is atraumatic, normocephalic. Pupils equal, round. Sclerae is anicteric. NECK: Supple. No JVD. No lymphadenopathy. No thyromegaly. LUNGS: Breath sounds diminished with some mild scattered rhonchi noted. No intercostal retractions. HEART: S1, S2 are muffled ABDOMEN: Soft. Bowel sounds are present. No masses. No tenderness. EXTREMITIES: No pedal edema. No calf tenderness. NEUROLOGICAL: Patient is awake, alert and oriented 3, no focal deficits . Assessment: Acute urinary tract infection with sepsis, present on admission Change in mental status, acute on chronic metabolic encephalopathy dehydration, present on admission History of congestive heart failure chronic obstructive pulmonary disease diabetes mellitus type 2 History of degenerative joint disease History of vascular disorder history of chronic hypoxic respiratory failure History of advanced chronic obstructive pulmonary disease History of endocarditis remote history of nicotine dependence peripheral artery disease History of gout history of cardiac catheterization history of anxiety Gait dysfunction Severe protein calorie malnutrition with a body mass index of 17.8 Full Code Plan: Recommend to continue with current medications and management. Patient continues on IV ceftriaxone while awaiting finalized urine cultures. Preliminary showing gram negative bacilli. continue with gentle IV hydration and will continue for now. Continue to increase activity as tolerated and encouraged oral intake. Pulmonary following as needed and recommend to continue with current regimen. Social work following and working on accepting facilities as ECF is being planned for continued strength and mobility. Possible discharge in 24-48 hours. Due to multiple complex medical issues prognosis is guarded. Objective - Vital Signs Vital signs: Vital Signs Temp 98.1 F 07/01/21 08:00 Pulse 80 07/01/21 09:40 Resp 16 07/01/21 08:00 BP 145/81 07/01/21 08:00 Pulse Ox 99 07/01/21 08:00 Intake & Output 06/30/21 07/01/21 07/01/21 18:59 06:59 18:59 Output Total 300 750 Balance -300 -750 Weight 49.895 kg Output: Urine 300 750 Other: Voiding Method Indwelling Catheter Indwelling Catheter - Labs CBC & Chem 7: 07/01/21 07:03 07/01/21 07:03 Labs: Abnormal Lab Results - Last 24 Hours (Table) 06/30/21 06/30/21 06/30/21 Range/Units 05:12 05:12 12:11 RBC 3.14 L (4.10-5.20) X 10*6/uL Hgb 8.4 L (12.0-15.0) g/dL Hct 30.4 L (37.2-46.3) % MCH 26.8 L (27.0-32.0) pg MCHC 27.6 L (32.0-37.0) g/dL RDW 14.7 H (11.5-14.5) % Immature Gran # 0.06 H (0.00-0.04) X 10*3/uL Sodium (137-145) mmol/L Chloride (98-107) mmol/L Carbon Dioxide 28.8 H (20.0-27.5) mmol/L Creatinine 0.3 L (0.6-1.5) mg/dL BUN/Creatinine Ratio 59.00 H (12.00-20.00) Ratio Glucose 52 L (70-110) mg/dL POC Glucose (mg/dL) 119 H (75-99) mg/dL Calcium 8.5 L (8.7-10.3) mg/dL 06/30/21 06/30/21 07/01/21 Range/Units 16:51 20:58 07:03 RBC 3.30 L (4.10-5.20) X 10*6/uL Hgb 9.4 L D (12.0-15.0) g/dL Hct 31.0 L (37.2-46.3) % MCH (27.0-32.0) pg MCHC 30.2 L (32.0-37.0) g/dL RDW (11.5-14.5) % Immature Gran # (0.00-0.04) X 10*3/uL Sodium (137-145) mmol/L Chloride (98-107) mmol/L Carbon Dioxide (20.0-27.5) mmol/L Creatinine (0.6-1.5) mg/dL BUN/Creatinine Ratio (12.00-20.00) Ratio Glucose (70-110) mg/dL POC Glucose (mg/dL) 178 H 147 H (75-99) mg/dL Calcium (8.7-10.3) mg/dL 07/01/21 07/01/21 Range/Units 07:03 07:30 RBC (4.10-5.20) X 10*6/uL Hgb (12.0-15.0) g/dL Hct (37.2-46.3) % MCH (27.0-32.0) pg MCHC (32.0-37.0) g/dL RDW (11.5-14.5) % Immature Gran # (0.00-0.04) X 10*3/uL Sodium 131 L (137-145) mmol/L Chloride 97 L (98-107) mmol/L Carbon Dioxide 36 H (20.0-27.5) mmol/L Creatinine 0.48 L (0.6-1.5) mg/dL BUN/Creatinine Ratio (12.00-20.00) Ratio Glucose 126 H (70-110) mg/dL POC Glucose (mg/dL) 132 H (75-99) mg/dL Calcium (8.7-10.3) mg/dL Microbiology - Last 24 Hours (Table) 06/29/21 14:59 Urine Culture - Preliminary Urine,Voided Gram Neg Bacilli 06/29/21 15:55 Blood Culture - Preliminary Blood No Growth after 24 hours 06/29/21 16:10 Blood Culture - Preliminary Blood No Growth after 24 hours
[2021-07-02] MEDS: LEVOTHYROXINE 75 MCG TAB PO SCH (05:37)
[2021-07-02 07:17] LABS: Glucose,Whole Blood 132 mg/dL (75-99)
[2021-07-02] MEDS: SODIUM CHLORIDE 0.9% 1,000 ML IV SCH (07:26)
[2021-07-02] MEDS: PANTOPRAZOLE 40 MG TABLET PO SCH (08:44)
[2021-07-02] MEDS: MULTIVITAMINS, THERA 1 EACH TAB PO SCH (08:44)
[2021-07-02] MEDS: METOPROLOL TARTRATE 25 MG TAB PO SCH (08:44)
[2021-07-02] MEDS: TAMSULOSIN 0.4 MG CAP.ER.24H PO SCH (08:44)
[2021-07-02] MEDS: metFORMIN 500 MG TAB PO SCH (08:44)
[2021-07-02] MEDS: lisinopriL 20 MG TAB PO SCH (08:44)
[2021-07-02] MEDS: FOLIC ACID 1 MG TAB PO SCH (08:44)
[2021-07-02] MEDS: HEPARIN SODIUM,PORCINE/PF 5,000 UNIT/0.5 ML SYRINGE SQ SCH (08:45)
[2021-07-02 08:52] VITALS: BP 151/77; RESP 18; TEMP 97.7
[2021-07-02] MEDS: SYMBICORT 160-4.5 MCG INHALER INHALATION SCH (09:19)
[2021-07-02] MEDS: IPRATROPIUM-ALBUTEROL 3 ML NEB INHALATION SCH ×3 (09:19→16:50)
[2021-07-02] MEDS: BUDESONIDE 1 MG/2 ML NEBU INHALATION SCH (09:21)
[2021-07-02 11:55] LABS: Glucose,Whole Blood 126 mg/dL (75-99)
[2021-07-02 13:26] VITALS: PULSE 72
--- NOTE | 2021-07-03 14:58 | P.DS ---
Providers Date of admission: 06/29/21 15:45 Expected date of discharge: 07/02/21 Attending physician: Mckinley Llamas MD Consults: 06/29/21 17:46 Consult Physician Routine Consulting Provider: Cindy Hicks Consult Reason/Comments: copd Do you want consulting provider notified?: Yes Primary care physician: Chris Sears [facility] Course: Final diagnosis Acute urinary tract infection with sepsis, present on admission Change in mental status, acute on chronic metabolic encephalopathy dehydration, present on admission History of congestive heart failure chronic obstructive pulmonary disease diabetes mellitus type 2 History of degenerative joint disease History of vascular disorder history of chronic hypoxic respiratory failure History of advanced chronic obstructive pulmonary disease History of endocarditis remote history of nicotine dependence peripheral artery disease History of gout history of cardiac catheterization history of anxiety Gait dysfunction Severe protein calorie malnutrition with a body mass index of 17.8 Full Code Discharge disposition Patient is being discharged in a stable condition with guarded prognosis to home. She will continue with home care in the outpatient setting. Patient will follow-up with Dr. Sears upon discharge. Patient will to Oral Cipro twice daily for the next 10 days to complete the course. Recommend repeat labs in 2-3 days to monitor CBC and BMP. Prescription was provided. Total time taken is greater than 35 minutes. Hospital course This is a 76-year-old female who was recently admitted with change in mentation along with acute urinary tract infection and dehydration being closely monitored. Patient was evaluated by pulmonary and recommend to continue with breathing inhalational treatments and oxygen supplementation of 2 L that she wears chronically in the outpatient setting. Patient will follow-up with her pulmonary/primary care provider Dr. Sears discharge. Urine cultures finalized showing enterobacter aerogenes along with pseudomonas aeruginosa with some sensitivity to Cipro and will continue with 500 mg twice daily for the next 10 days to complete the course. Patient's mentation improved although continues to be weak and physical therapy recommending rehab although patient would like to return home and is agreeable to home care. Patient encouraged to continue with inhalers. Currently no reports of chest pain, shortness of breath, or palpitations. Patient is afebrile. No reports of nausea or vomiting and patient is tolerating diet. Patient will be discharged to home today. Guarded prognosis. On exam vital signs are stable. Cardio S1, S2 are muffled. Respiratory system shows diminished breath sounds at the bases with some mild expiratory wheezing noted. Abdomen is soft and nontender. Nervous system shows no focal deficits. Please refer to medication reconciliation sheet for a list of medications. Patient Condition at Discharge: Fair Plan - Discharge Summary Discharge Rx Participant: No New Discharge Prescriptions: New Ciprofloxacin HCl [Cipro] 500 mg PO BID 10 Days #20 tab Acetaminophen Tab [Tylenol] 650 mg PO Q6HR PRN tab PRN Reason: Mild Pain Or Fever > 100.5 Ipratropium-Albuterol Nebulize [Duoneb 0.5 mg-3 mg/3 ml Soln] 3 ml INHALATION RT-Q2H PRN ml PRN Reason: Shortness Of Breath Or Wheezing Multivitamins, Thera [Multivitamin (formulary)] 1 each PO DAILY@1200 30 Days #30 tab Continue Levothyroxine Sodium [Synthroid] 150 mcg PO DAILY #30 tablet Loratadine [Claritin] 10 mg PO DAILY lisinopriL [Zestril] 20 mg PO BID Ipratropium-Albuterol Nebulize [Duoneb 0.5 mg-3 mg/3 ml Soln] 3 ml INHALATION RT-QID ml Ammonium Lactate Lotion [Lac-Hydrin 12% Lotion] 1 applic TOPICAL BID Folic Acid 1 mg PO DAILY metFORMIN HCL ER [Glucophage XR] 500 mg PO BID Albuterol Sulfate [Proair Hfa] 2 puff INHALATION RT-BID Metoprolol Tartrate [Lopressor] 25 mg PO BID #60 tab Budesonide [Pulmicort] 1 mg INHALATION RT-BID ml Pantoprazole [Protonix] 40 mg PO DAILY Tamsulosin [Flomax] 0.4 mg PO DAILY Budesonide-Formot 160-4.5 Mcg [Symbicort 160-4.5 Mcg Inhaler] 2 puff INHALATION RT-BID 30 Days #1 each Discharge Medication List Levothyroxine Sodium [Synthroid] 150 mcg PO DAILY #30 tablet 12/05/18 [Rx] Albuterol Sulfate [Proair Hfa] 2 puff INHALATION RT-BID 09/25/20 [History] Loratadine [Claritin] 10 mg PO DAILY 10/23/20 [History] lisinopriL [Zestril] 20 mg PO BID 03/29/21 [History] Metoprolol Tartrate [Lopressor] 25 mg PO BID #60 tab 04/03/21 [Rx] Budesonide [Pulmicort] 1 mg INHALATION RT-BID ml 05/06/21 [Rx] Ipratropium-Albuterol Nebulize [Duoneb 0.5 mg-3 mg/3 ml Soln] 3 ml INHALATION RT-QID ml 05/06/21 [Rx] Ammonium Lactate Lotion [Lac-Hydrin 12% Lotion] 1 applic TOPICAL BID 06/29/21 [History] Folic Acid 1 mg PO DAILY 06/29/21 [History] Pantoprazole [Protonix] 40 mg PO DAILY 06/29/21 [History] Tamsulosin [Flomax] 0.4 mg PO DAILY 06/29/21 [History] metFORMIN HCL ER [Glucophage XR] 500 mg PO BID 06/29/21 [History] Acetaminophen Tab [Tylenol] 650 mg PO Q6HR PRN tab 07/02/21 [Rx] Budesonide-Formot 160-4.5 Mcg [Symbicort 160-4.5 Mcg Inhaler] 2 puff INHALATION RT-BID 30 Days #1 each 07/02/21 [Rx] Ciprofloxacin HCl [Cipro] 500 mg PO BID 10 Days #20 tab 07/02/21 [Rx] Ipratropium-Albuterol Nebulize [Duoneb 0.5 mg-3 mg/3 ml Soln] 3 ml INHALATION RT-Q2H PRN ml 07/02/21 [Rx] Multivitamins, Thera [Multivitamin (formulary)] 1 each PO DAILY@1200 30 Days #30 tab 07/02/21 [Rx] Follow up Appointment(s)/Referral(s): Chris Sears MD [Primary Care Provider] - 1-2 days [facility] [NON-STAFF] - Ambulatory/Diagnostic Orders: Complete Blood Count w/diff [LAB.AMB] Time Frame: 2 Days, Location: None Selected Activity/Diet/Wound Care/Special Instructions: Activity Limited until follow-up Follow-up with primary care provider this week Continue with antibiotics until finished Continue to encourage oral intake Continue with consistent carbohydrate diet Continue with breathing treatments Continue with oxygen therapy Homecare Discharge Disposition: HOME WITH HOME HEALTH SERVICES
== END 2021-07-02 17:07 | disposition home health service (06) | DRG 871 ==
LOC: EC 14:33 → 4SSUR 15:45
PROVIDERS: ADMIT Internal Medicine; ATTEND Internal Medicine
DX: A41.9 Sepsis, unspecified organism (principal); E43 Unspecified severe protein-calorie malnutrition; G93.41 Metabolic encephalopathy; J96.11 Chronic respiratory failure with hypoxia; J96.12 Chronic respiratory failure with hypercapnia; N39.0 Urinary tract infection, site not specified; R64 Cachexia; Z20.822 Contact with and (suspected) exposure to COVID-19; E11.51 Type 2 diabetes mellitus with diabetic peripheral angiopathy without gangrene; Z68.1 Body mass index [BMI] 19.9 or less, adult; E86.0 Dehydration; E03.9 Hypothyroidism, unspecified; B96.20 Unspecified Escherichia coli [E. coli] as the cause of diseases classified elsewhere; D64.9 Anemia, unspecified; E07.9 Disorder of thyroid, unspecified; I11.0 Hypertensive heart disease with heart failure; I50.9 Heart failure, unspecified; J44.9 Chronic obstructive pulmonary disease, unspecified; M19.90 Unspecified osteoarthritis, unspecified site; Z79.51 Long term (current) use of inhaled steroids; Z79.84 Long term (current) use of oral hypoglycemic drugs; Z79.890 Hormone replacement therapy; Z79.899 Other long term (current) drug therapy; Z80.0 Family history of malignant neoplasm of digestive organs; Z86.79 Personal history of other diseases of the circulatory system; Z87.440 Personal history of urinary (tract) infections; Z87.891 Personal history of nicotine dependence; Z90.710 Acquired absence of both cervix and uterus; Z91.81 History of falling; Z96.1 Presence of intraocular lens
CPT/HCPCS: 36415; 71046; 80048; 80053; 81001; 83605; 83735; 83880; 84484; 85025; 85610; 85730; 87040; 87077; 87086; 87186; 87635; 93005; 94640; 94760; 96360; 99291

== ENCOUNTER 2021-11-16 12:18 | Inpatient (IN) | payer MEDICARE, BC ==
[2021-11-16] MEDS ORDERED: methylPREDNISolone SOD SUCCI 125 MG/2 ML VIAL IV STA (12:30)
[2021-11-16] MEDS ORDERED: MAGNESIUM SULFATE-D5W PMX 1 GM in DEXTROSE/WATER 1 100ML.BAG IVPB STA (12:30)
[2021-11-16] MEDS ORDERED: SODIUM CHLORIDE 0.9% 500 ML 500 ML IV STA (12:30)
[2021-11-16] MEDS ORDERED: IPRATROPIUM-ALBUTEROL 3 ML NEB INHALATION STA (12:30)
--- NOTE | 2021-11-16 12:44 | ED ---
General Adult HPI - General Chief complaint: Shortness of Breath Stated complaint: SHAYY Time Seen by Provider: 11/16/21 12:24 Source: patient, EMS, RN notes reviewed, old records reviewed Mode of arrival: EMS Limitations: no limitations - History of Present Illness Initial comments: Patient is a 76-year-old female with past medical history remarkable for COPD, diabetes, hypertension, thyroid disorder, chronic hypoxic respiratory failure on 3-4 L nasal cannula at home presents emergency Department complaining of a 2 to three-day history of worsening shortness of breath. States she believes it is her COPD. Attempted his home regimen treatments, which did improve her symptoms somewhat but did not last. Endorses a nonproductive cough. Denies any nausea, vomiting, chest pain, abdominal pain, urinary complaints. denies any lower extremity edema. Continued tobacco use. Presents for further evaluation at this time. - Related Data Home Medications Medication Instructions Recorded Confirmed Albuterol Sulfate [Proair Hfa] 2 puff INHALATION RT-BID 09/25/20 09/16/21 Loratadine [Claritin] 10 mg PO DAILY 10/23/20 09/16/21 Ammonium Lactate Lotion 1 applic TOPICAL BID 06/29/21 09/16/21 [Lac-Hydrin 12% Lotion] Folic Acid 1 mg PO DAILY 06/29/21 09/16/21 Pantoprazole [Protonix] 40 mg PO DAILY 06/29/21 09/16/21 Tamsulosin [Flomax] 0.4 mg PO DAILY 06/29/21 09/16/21 Atorvastatin [Lipitor] 20 mg PO HS 09/16/21 09/16/21 Cholecalciferol [Vitamin D3 (25 50 mcg PO DAILY 09/16/21 09/16/21 Mcg = 1000 Iu)] Ferrous Sulfate [Iron (65 MG 325 mg PO DAILY 09/16/21 09/16/21 Elemental)] Magnesium Hydroxide [Milk of 2,400 mg PO DAILY PRN 09/16/21 09/16/21 Magnesia] Previous Rx's Medication Instructions Recorded Levothyroxine Sodium [Synthroid] 150 mcg PO DAILY #30 tablet 12/05/18 Metoprolol Tartrate [Lopressor] 25 mg PO BID #60 tab 04/03/21 Budesonide [Pulmicort] 1 mg INHALATION RT-BID ml 05/06/21 Ipratropium-Albuterol Nebulize 3 ml INHALATION RT-QID ml 05/06/21 [Duoneb 0.5 mg-3 mg/3 ml Soln] Multivitamins, Thera [Multivitamin 1 each PO DAILY@1200 30 Days #30 07/02/21 (formulary)] tab Formoterol Fumarate [Perforomist] 20 mcg INHALATION RT-BID #1 each 09/22/21 amLODIPine [Norvasc] 10 mg PO DAILY #30 tab 09/22/21 glipiZIDE [Glucotrol] 2.5 mg PO AC-BID #60 tablet 09/22/21 predniSONE 0 mg PO DIRECTED 8 Days #18 tab 09/22/21 INSULIN ASPART (NovoLOG) [NovoLOG 0 unit SQ ACHS ml 09/23/21 (formulary)] Ipratropium-Albuterol Nebulize 3 ml INHALATION RT-Q4H PRN ml 09/23/21 [Duoneb 0.5 mg-3 mg/3 ml Soln] Ipratropium-Albuterol Nebulize 3 ml INHALATION RT-QID ml 09/23/21 [Duoneb 0.5 mg-3 mg/3 ml Soln] Allergies Allergy/AdvReac Type Severity Reaction Status Date / Time bacitracin Allergy Rash/Hives Verified 11/16/21 15:03 [From Neosporin ([id number])] neomycin Allergy Rash/Hives Verified 11/16/21 15:03 [From Neosporin ([id number])] Penicillins Allergy Rash/Hives Verified 11/16/21 15:03 polymyxin B Allergy Rash/Hives Verified 11/16/21 15:03 [From Neosporin ([id number])] trimethoprim [From Polytrim] Allergy Rash/Hives Verified 11/16/21 15:03 levofloxacin [From Levaquin] AdvReac WEAKNESS Verified 11/16/21 15:03 metformin AdvReac Diarrhea Verified 11/16/21 15:03 ELDA/POLY/DEX Allergy Rash/Hives Uncoded 09/16/21 14:20 Review of Systems ROS Statement: Those systems with pertinent positive or pertinent negative responses have been documented in the HPI. Review of Systems: CONST: Denies fever EYES: Denies blurry vision ENT: Denies nasal congestion C/V: Denies Chest pain RESP: Endorses shortness of breath GI: Denies abdominal pain : Denies dysuria SKIN: Denies rash. MSK: Denies joint pain. NEURO: Denies headache ROS Other: All systems not noted in ROS Statement are negative. Past Medical History Past Medical History: COPD, Diabetes Mellitus, Hyperlipidemia, Hypertension, Osteoarthritis (OA), Respiratory Disorder, Thyroid Disorder, Vascular Disorder Additional Past Medical History / Comment(s): Chronic advanced COPD, chronic hypoxic hypercarbic respiratory failure, home oxygen at 4L/NC ATC, purulent tracheobronchitis, NIDDM, hyponatremia, hyperkalemia, severe constipation 2010, hypothyroidism, skeletal chest wall pain, anemia, PVD/PAD, past leg and foot wounds, past L distal radius fracture, gout, protein calorie malnutrition, UTI with sepsis, urinary retention with IDC since removed, confused at times per spouse and ambulates alittle History of Any Multi-Drug Resistant Organisms: None Reported Past Surgical History: Heart Catheterization, Hysterectomy, Tubal Ligation Additional Past Surgical History / Comment(s): 2011 cardiac cath, 2013 cardiac angiogram, colonoscopy/benign polypectomy, anal fistula repair, bilateral cataract removals/lens implants. Past Anesthesia/Blood Transfusion Reactions: Postoperative Nausea & Vomiting (PONV) Additional Past Anesthesia/Blood Transfusion Reaction / Comment(s): nausea one time Past Psychological History: Anxiety Smoking Status: Current every day smoker Past Alcohol Use History: None Reported Past Drug Use History: None Reported - Past Family History Mother History Unknown: Yes Family Medical History: Cancer, Thyroid Disorder Additional Family Medical History / Comment(s): Liver Cancer Father History Unknown: Yes Family Medical History: Cancer General Exam - General Exam Comments Initial Comments: General: Appears in no acute distress. HEAD: Normal with no signs of head trauma. EYES: PERRLA, EOMI, conjunctiva normal, no discharge. ENT: Hearing grossly intact, normal oropharynx. RESPIRATORY: Bilateral end expiratory wheezing. Some diminished lung sounds in the bases. No increased work of breathing. No hypoxia on her home 3-4 L nasal cannula oxygen. C/V: Regular rate and rhythm. S1 and S2 auscultated, no edema, peripheral pulses 2+ and intact throughout ABD: Abd is soft, nontender, nondistended EXT: Normal range of motion, no obvious deformity SKIN: No rashes or lesions observed on exposed skin. NEURO: Alert and oriented 4. No focal deficits. Limitations: no limitations Course Vital Signs 11/16/21 11/16/21 11/16/21 12:23 12:27 15:14 Temperature 97.8 F Pulse Rate 94 80 Respiratory 18 18 Rate Blood Pressure 138/75 O2 Sat by Pulse 100 Oximetry 11/16/21 15:23 Temperature Pulse Rate 81 Respiratory Rate Blood Pressure O2 Sat by Pulse Oximetry Medical Decision Making - Medical Decision Making A small patient's presentation and physical exam, do believe she is likely experiencing a COPD exacerbation. Cannot rule out other etiology at this time. We will obtain Covid, flu swabs as well as basic laboratory studies and a screening EKG. Chest x-ray will also be obtained. Patient will be sympto matically treated with IV fluids, IV Solu-Medrol, magnesium, as well as a breathing treatment. She was in agreement with this plan. She does have use history of UTIs and therefore we will obtain a urinalysis as well. Patient's laboratory studies are relatively unremarkable. This showed an elevat ed carbon dioxide of 40, baseline is mid 30s. Patient's negative for Covid and flu. Patient's EKG does show new onset biphasic T-wave in lead V3 as well as T- wave inversions in V4 and V5. Therefore we did obtain a troponin which is undetectable. Chest x-ray reveals no acute cardio primary process. I did speak with the patient and would like to admit her for further monitoring due to the acute T-wave changes on EKG. She was in agreement this plan. I did speak with Dr. Lnog of cardiology who was in agreement with this plan. We will trend her troponins. She'll be admitted in stable condition to telemetry bed. Terms of her wheezing, she is at baseline, wheezing is improved. COPD w ill continue to be treated while she is here. I spoke with the admitting physician, Dr. Linares of observation who accepted the patient. Patient is admitted in stable condition to observation telemetry. - Lab Data Result diagrams: 11/16/21 12:44 11/16/21 12:44 Lab Results 11/16/21 11/16/21 11/16/21 Range/Units 12:44 12:44 12:44 WBC 9.3 (3.8-10.6) k/uL RBC 4.05 (3.80-5.40) m/uL Hgb 11.7 (11.4-16.0) gm/dL Hct 37.8 (34.0-46.0) % MCV 93.5 (80.0-100.0) fL MCH 29.0 (25.0-35.0) pg MCHC 31.1 (31.0-37.0) g/dL RDW 14.8 (11.5-15.5) % Plt Count 284 (150-450) k/uL MPV 7.4 Neutrophils % 86 % Lymphocytes % 7 % Monocytes % 4 % Eosinophils % 0 % Basophils % 0 % Neutrophils # 8.0 H (1.3-7.7) k/uL Lymphocytes # 0.6 L (1.0-4.8) k/uL Monocytes # 0.4 (0-1.0) k/uL Eosinophils # 0.0 (0-0.7) k/uL Basophils # 0.0 (0-0.2) k/uL Hypochromasia Moderate PT 9.5 (9.0-12.0) sec INR 0.9 (<1.2) APTT 20.5 L (22.0-30.0) sec Sodium 135 L (137-145) mmol/L Potassium 4.3 (3.5-5.1) mmol/L Chloride 96 L (98-107) mmol/L Carbon Dioxide 40 H (22-30) mmol/L Anion Gap -1 mmol/L BUN 20 H (7-17) mg/dL Creatinine 0.51 L (0.52-1.04) mg/dL Est GFR (CKD-EPI)AfAm >90 (>60 ml/min/1.73 sqM) Est GFR (CKD-EPI)NonAf >90 (>60 ml/min/1.73 sqM) Glucose 134 H (74-99) mg/dL Calcium 9.4 (8.4-10.2) mg/dL Magnesium 2.1 (1.6-2.3) mg/dL Total Bilirubin 0.2 (0.2-1.3) mg/dL AST 18 (14-36) U/L ALT 11 (4-34) U/L Alkaline Phosphatase 51 (38-126) U/L Troponin I (0.000-0.034) ng/mL Total Protein 6.0 L (6.3-8.2) g/dL Albumin 3.5 (3.5-5.0) g/dL Coronavirus (PCR) (Not Detectd) Influenza Type A RNA (Not Detectd) Influenza Type B (PCR) (Not Detectd) 11/16/21 11/16/21 11/16/21 Range/Units 12:44 12:44 14:27 WBC (3.8-10.6) k/uL RBC (3.80-5.40) m/uL Hgb (11.4-16.0) gm/dL Hct (34.0-46.0) % MCV (80.0-100.0) fL MCH (25.0-35.0) pg MCHC (31.0-37.0) g/dL RDW (11.5-15.5) % Plt Count (150-450) k/uL MPV Neutrophils % % Lymphocytes % % Monocytes % % Eosinophils % % Basophils % % Neutrophils # (1.3-7.7) k/uL Lymphocytes # (1.0-4.8) k/uL Monocytes # (0-1.0) k/uL Eosinophils # (0-0.7) k/uL Basophils # (0-0.2) k/uL Hypochromasia PT (9.0-12.0) sec INR (<1.2) APTT (22.0-30.0) sec Sodium (137-145) mmol/L Potassium (3.5-5.1) mmol/L Chloride (98-107) mmol/L Carbon Dioxide (22-30) mmol/L Anion Gap mmol/L BUN (7-17) mg/dL Creatinine (0.52-1.04) mg/dL Est GFR (CKD-EPI)AfAm (>60 ml/min/1.73 sqM) Est GFR (CKD-EPI)NonAf (>60 ml/min/1.73 sqM) Glucose (74-99) mg/dL Calcium (8.4-10.2) mg/dL Magnesium (1.6-2.3) mg/dL Total Bilirubin (0.2-1.3) mg/dL AST (14-36) U/L ALT (4-34) U/L Alkaline Phosphatase (38-126) U/L Troponin I <0.012 (0.000-0.034) ng/mL Total Protein (6.3-8.2) g/dL Albumin (3.5-5.0) g/dL Coronavirus (PCR) Not Detected (Not Detectd) Influenza Type A RNA Not Detected (Not Detectd) Influenza Type B (PCR) Not Detected (Not Detectd) - EKG Data -: EKG Interpreted by Me EKG Comments: 12-lead Electrocardiogram Interpretation Note EKG was reviewed and interpreted by myself. 12-lead ECG performed at 1358 is interpreted by me as revealing normal sinus rhythm at a rate of 79 beats per minute. [place] appears normal. NM interval is 152 ms, QRS ration is 102 ms, QTc is 402 ms.. There are new onset T wave changes. V3 has a biphasic T-wave in V4 and V5 have inverted T waves. Not seen on prior EKGs.. R wave progression across the precordium was satisfactory. By my interpretation this EKG is non- diagnostic for acute ischemia. Disposition Clinical Impression: T wave inversion in EKG, COPD exacerbation Disposition: ADMITTED IP TO THIS HOSP Condition: Stable Is patient prescribed a controlled substance at d/c from ED?: No Time of Disposition: 15:10
[2021-11-16 12:53] LABS: Basophils % (A) 0 %; Eosinophils % (A) 0 %; HCT 37.8 % (34.0-46.0); HGB 11.7 gm/dL (11.4-16.0); Hypochromasia Moderate; Lymphocytes # (A) 0.6 k/uL (1.0-4.8); Lymphocytes % (A) 7 %; MCHC 31.1 g/dL (31.0-37.0); MCV 93.5 fL (80.0-100.0); Mean Platelet Volume 7.4; Monocytes # (A) 0.4 k/uL (0-1.0); Monocytes % (A) 4 %; Neutrophils % (A) 86 %; Platelet Count 284 k/uL (150-450); RBC 4.05 m/uL (3.80-5.40); RDW 14.8 % (11.5-15.5); WBC 9.3 k/uL (3.8-10.6)
[2021-11-16 13:03] LABS: ALT 11 U/L (4-34); AST 18 U/L (14-36); African American GFR (CKD) >90 (>60 ml/min/1.73 sqM); Albumin 3.5 g/dL (3.5-5.0); Alkaline Phosphatase 51 U/L (38-126); Anion Gap -1 mmol/L; Blood Urea Nitrogen 20 mg/dL (7-17); Calcium 9.4 mg/dL (8.4-10.2); Carbon Dioxide 40 mmol/L (22-30); Chloride 96 mmol/L (98-107); Glucose 134 mg/dL (74-99); Magnesium 2.1 mg/dL (1.6-2.3); Non-African American GFR(CKD) >90 (>60 ml/min/1.73 sqM); Potassium 4.3 mmol/L (3.5-5.1); Sodium 135 mmol/L (137-145); Total Bilirubin 0.2 mg/dL (0.2-1.3)
[2021-11-16 13:09] LABS: INR 0.9 (<1.2); Prothrombin Time 9.5 sec (9.0-12.0)
--- NOTE | 2021-11-16 13:19 | XR ---
EXAMINATION TYPE: XR chest 2V DATE OF EXAM: 11/16/2021 COMPARISON: 09/22/2021 INDICATION: Difficulty breathing TECHNIQUE: Frontal and lateral views of the chest are obtained. FINDINGS: The heart size is normal. The pulmonary vasculature is normal. The lungs are clear. Nipple shadows are evident. IMPRESSION: 1. No acute pulmonary process.
[2021-11-16 13:23] LABS: Partial Thromboplastin Time 20.5 sec (22.0-30.0)
[2021-11-16] MEDS ORDERED: NALOXONE 0.4 MG/ML 1 ML VIAL IV PRN (15:17)
[2021-11-16] MEDS ORDERED: ASPIRIN 81 MG PO STA (15:17)
--- NOTE | 2021-11-16 15:49 | P.HPIM ---
History of Present Illness Patient is a 76-year-old female with a past medical history significant for essential hypertension, hyperlipidemia, COPD on 4 L nasal cannula at home and diabetes mellitus [id number] the presents a hospital complaining of shortness of breath. This apparently began in the last 24-48 hours she is bringing up very minimal sputum is having some shortness of breath. Patient also complains of subjective chills but denies any episodes of fever, chest pain or palpitations. Patient is compliant with her medication. At bedside she is currently at 3 L saturating 92% above vital signs are otherwise stable. Chest x-ray was completed which is stable. EKG also has some nonspecific T-wave inversions. Cardiology was consulted from the emergency department, Cardiac troponin negative 1 Past Medical History Past Medical History: COPD, Diabetes Mellitus, Hyperlipidemia, Hypertension, Osteoarthritis (OA), Respiratory Disorder, Thyroid Disorder, Vascular Disorder Additional Past Medical History / Comment(s): Chronic advanced COPD, chronic hypoxic hypercarbic respiratory failure, home oxygen at 4L/NC ATC, purulent tracheobronchitis, NIDDM, hyponatremia, hyperkalemia, severe constipation 2010, hypothyroidism, skeletal chest wall pain, anemia, PVD/PAD, past leg and foot wounds, past L distal radius fracture, gout, protein calorie malnutrition, UTI with sepsis, urinary retention with IDC since removed, confused at times per spouse and ambulates alittle History of Any Multi-Drug Resistant Organisms: None Reported Past Surgical History: Heart Catheterization, Hysterectomy, Tubal Ligation Additional Past Surgical History / Comment(s): 2011 cardiac cath, 2013 cardiac angiogram, colonoscopy/benign polypectomy, anal fistula repair, bilateral cataract removals/lens implants. Past Anesthesia/Blood Transfusion Reactions: Postoperative Nausea & Vomiting (PONV) Additional Past Anesthesia/Blood Transfusion Reaction / Comment(s): nausea one time Past Psychological History: Anxiety Smoking Status: Current every day smoker Past Alcohol Use History: None Reported Past Drug Use History: None Reported - Past Family History Mother History Unknown: Yes Family Medical History: Cancer, Thyroid Disorder Additional Family Medical History / Comment(s): Liver Cancer Father History Unknown: Yes Family Medical History: Cancer Medications and Allergies Home Medications Medication Instructions Recorded Confirmed Type Levothyroxine Sodium [Synthroid] 150 mcg PO DAILY #30 tablet 12/05/18 09/16/21 Rx Albuterol Sulfate [Proair Hfa] 2 puff INHALATION RT-BID 09/25/20 09/16/21 History Loratadine [Claritin] 10 mg PO DAILY 10/23/20 09/16/21 History Metoprolol Tartrate [Lopressor] 25 mg PO BID #60 tab 04/03/21 09/16/21 Rx Budesonide [Pulmicort] 1 mg INHALATION RT-BID ml 05/06/21 09/16/21 Rx Ipratropium-Albuterol Nebulize 3 ml INHALATION RT-QID ml 05/06/21 09/16/21 Rx [Duoneb 0.5 mg-3 mg/3 ml Soln] Ammonium Lactate Lotion 1 applic TOPICAL BID 06/29/21 09/16/21 History [Lac-Hydrin 12% Lotion] Folic Acid 1 mg PO DAILY 06/29/21 09/16/21 History Pantoprazole [Protonix] 40 mg PO DAILY 06/29/21 09/16/21 History Tamsulosin [Flomax] 0.4 mg PO DAILY 06/29/21 09/16/21 History Multivitamins, Thera [Multivitamin 1 each PO DAILY@1200 30 Days #30 07/02/21 09/16/21 Rx (formulary)] tab Atorvastatin [Lipitor] 20 mg PO HS 09/16/21 09/16/21 History Cholecalciferol [Vitamin D3 (25 50 mcg PO DAILY 09/16/21 09/16/21 History Mcg = 1000 Iu)] Ferrous Sulfate [Iron (65 MG 325 mg PO DAILY 09/16/21 09/16/21 History Elemental)] Magnesium Hydroxide [Milk of 2,400 mg PO DAILY PRN 09/16/21 09/16/21 History Magnesia] Formoterol Fumarate [Perforomist] 20 mcg INHALATION RT-BID #1 each 09/22/21 Rx amLODIPine [Norvasc] 10 mg PO DAILY #30 tab 09/22/21 Rx glipiZIDE [Glucotrol] 2.5 mg PO AC-BID #60 tablet 09/22/21 Rx predniSONE 0 mg PO DIRECTED 8 Days #18 tab 09/22/21 Rx INSULIN ASPART (NovoLOG) [NovoLOG 0 unit SQ ACHS ml 09/23/21 Rx (formulary)] Ipratropium-Albuterol Nebulize 3 ml INHALATION RT-Q4H PRN ml 09/23/21 Rx [Duoneb 0.5 mg-3 mg/3 ml Soln] Ipratropium-Albuterol Nebulize 3 ml INHALATION RT-QID ml 09/23/21 Rx [Duoneb 0.5 mg-3 mg/3 ml Soln] Allergies Allergy/AdvReac Type Severity Reaction Status Date / Time bacitracin Allergy Rash/Hives Verified 11/16/21 15:03 [From Neosporin ([id number])] neomycin Allergy Rash/Hives Verified 11/16/21 15:03 [From Neosporin ([id number])] Penicillins Allergy Rash/Hives Verified 11/16/21 15:03 polymyxin B Allergy Rash/Hives Verified 11/16/21 15:03 [From Neosporin ([id number])] trimethoprim [From Polytrim] Allergy Rash/Hives Verified 11/16/21 15:03 levofloxacin [From Levaquin] AdvReac WEAKNESS Verified 11/16/21 15:03 metformin AdvReac Diarrhea Verified 11/16/21 15:03 ELDA/POLY/DEX Allergy Rash/Hives Uncoded 09/16/21 14:20 Physical Exam Vitals: Vital Signs Temp Pulse Resp BP Pulse Ox 11/16/21 15:23 81 11/16/21 15:14 80 11/16/21 12:27 97.8 F 18 11/16/21 12:23 94 18 138/75 100 Intake and Output 11/16/21 11/16/21 11/16/21 06:59 14:59 22:59 Other: Weight 44.906 kg Gen. patient is awake alert oriented 3 currently on 3 L nasal cannula Cardio normal S1/S2 heard Respiratory wheezing appreciated bilaterally with minimal rhonchi bilateral air entry Abdomen soft, nontender Extremity no pitting edema noted Psych patient is a good spirits. Results CBC & Chem 7: 11/16/21 12:44 11/16/21 12:44 Labs: Abnormal Lab Results - Last 24 Hours (Table) 11/16/21 11/16/21 11/16/21 Range/Units 12:44 12:44 12:44 Neutrophils # 8.0 H (1.3-7.7) k/uL Lymphocytes # 0.6 L (1.0-4.8) k/uL APTT 20.5 L (22.0-30.0) sec Sodium 135 L (137-145) mmol/L Chloride 96 L (98-107) mmol/L Carbon Dioxide 40 H (22-30) mmol/L BUN 20 H (7-17) mg/dL Creatinine 0.51 L (0.52-1.04) mg/dL Glucose 134 H (74-99) mg/dL Total Protein 6.0 L (6.3-8.2) g/dL Assessment and Plan Assessment: Assessment #1 acute hypoxic respiratory distress secondary to COPD exacerbation #2 nonspecific EKG changes noted no chest pain #3 essential hypertension #4 hyperlipidemia #5 COPD exacerbation #6 diabetes mellitus type 2 [id number] #7 hyperthyroidism Plan: -Admit to medicine for close monitoring -Aspiration/fall precaution -IV methylprednisolone 40 mg daily -Duonebs every 6 hours scheduled -EKG reviewed, monitor cardiac troponin -Cardiology consulted -We'll not initiate any antibiotics as there is no significant change in consistency or volume of sputum -Reconcile medications once confirmed with pharmacy -Due to prophylaxis Lovenox
[2021-11-16 16:46] LABS: Appearance,Urine Clear (Clear); Bilirubin,Urine Negative (Negative); Blood,Urine Negative (Negative); Color,Urine Light Yellow; Glucose,Urine (UA) Negative (Negative); Ketones,Urine Negative (Negative); Leukocyte Esterase,Urine Negative (Negative); Nitrite,Urine Negative (Negative); Protein,Urine Negative (Negative); Specific Gravity,Urine 1.008 (1.001-1.035); Urobilinogen,Urine <2.0 mg/dL (<2.0)
[2021-11-16] MEDS: IPRATROPIUM-ALBUTEROL 3 ML NEB INHALATION SCH (19:29)
[2021-11-17] MEDS: HEPARIN SODIUM,PORCINE/PF 5,000 UNIT/0.5 ML SYRINGE SQ SCH ×3 (01:54→20:57)
[2021-11-17] MEDS: IPRATROPIUM-ALBUTEROL 3 ML NEB INHALATION SCH ×3 (07:32→20:16)
[2021-11-17] MEDS: methylPREDNISolone SOD SUCCI 40 MG/ML 1 ML VIAL IV SCH (07:53)
[2021-11-17 09:04] LABS: Basophils # (A) 0.01 X 10*3/uL (0.00-0.10); Basophils % (A) 0.1 %; Eosinophils # (A) 0.01 X 10*3/uL (0.04-0.35); Eosinophils % (A) 0.1 %; HCT 35.9 % (37.2-46.3); HGB 10.7 g/dL (12.0-15.0); Immature Grans, Automated 1.2 %; Lymphocytes # (A) 0.99 X 10*3/uL (0.90-5.00); Lymphocytes % (A) 11.9 %; MCH 28.7 pg (27.0-32.0); MCHC 29.8 g/dL (32.0-37.0); MCV 96.2 fL (80.0-97.0); Monocytes % (A) 9.6 %; NRBC Per 100 WBC 0 /100 WBCS (0.0-0.0); Neutrophils % (A) 77.1 %; Platelet Count 241 X 10*3/uL (140-440); RBC 3.73 X 10*6/uL (4.10-5.20); RDW 14.6 % (11.5-14.5); WBC 8.31 X 10*3/uL (4.50-10.00)
[2021-11-17 09:26] LABS: African American GFR (CKD) 108.5 (60.0-200.0); Anion Gap 3.9 mmol/L (10.00-18.00); BUN/Creat Ratio 55.35 Ratio (12.00-20.00); Blood Urea Nitrogen 26.9 mg/dL (9.0-27.0); Calcium 9.3 mg/dL (8.7-10.3); Carbon Dioxide 34.8 mmol/L (20.0-27.5); Non-African American GFR(CKD) 93.6 (60.0-200.0); Potassium 4.6 mmol/L (3.5-5.5)
--- NOTE | 2021-11-17 10:17 | P.CRDCN ---
History of Present Illness Consult date: 11/17/21 History of present illness: HISTORY OF PRESENT ILLNESS: This is a 76-year-old female with a past medical history significant for COPD with home oxygen use, chronic nicotine dependence, hyperlipidemia, hypertension, and diabetes. Patient follows in the office with Dr. Vo. We have been asked to see the patient in consultation for abnormal EKG. Patient examined at the bedside. Patient presented to the hospital with a chief complaint of shortness of breath. Patient states she has been feeling progressively more short of breath for the past week. The patient does report continued nicotine use and states that she smokes 1-5 cigarettes a day. She denies having any chest pain or pressure. She is being treated for COPD exacerbation and she was placed on IV steroids. * EKG reveals sinus mechanism with T-wave inversions in inferior leads, biphasic T waves in V3, and T-wave inversions in V4V6 * Chest xray negative for acute process * Laboratory data: WBC 8.31. Hemoglobin 10.7. Platelet count 241. Sodium 139. Potassium 4.6. BUN 26. Creatinine 0.5. Troponin negative 3. * Current home cardiac medications are unknown at this time as patient's medication list has not been reconciled by pharmacy * Most recent echocardiogram obtained in December 2018 revealed ejection fraction 55%, hypokinesis of LV be posterior wall, mild LVH, mild MR, mild TR * Cardiac catheterization history: 2013 revealing minimal CAD * Patient underwent Lexiscan stress test in January 2019 which was negative for ischemia REVIEW OF SYSTEMS: At the time of my exam: CONSTITUTIONAL: Denies fever or chills. HEENT: Denies blurred vision, vision changes, or eye pain. Denies hemoptysis CARDIOVASCULAR: Denies chest pain. Denies orthopnea. Denies PND. Denies palpitations RESPIRATORY: Denies shortness of breath. GASTROINTESTINAL: Denies abdominal pain. Denies nausea or vomiting. HEMATOLOGIC: Denies bleeding disorders. GENITOURINARY: Denies any blood in urine. SKIN: Denies pruitis. Denies rash. PHYSICAL EXAM: VITAL SIGNS: Reviewed. GENERAL: Well-developed in no acute distress. HEENT: Head is normocephalic. Pupils are equal, round. Sclerae anicteric. Mucous membranes of the mouth are moist. Neck supple. No JVD or thyromegaly LUNGS: Respirations even and unlabored. Lungs diminished with mild expiratory wheezing throughout HEART: Regular rate and rhythm. S1 and S2 heard. Systolic murmur noted ABDOMEN: Soft. Nondistended. Nontender. EXTREMITIES: Normal range of motion. No clubbing or cyanosis. Peripheral pulses intact. No lower extremity edema NEUROLOGIC: Awake and alert. Oriented x 3. ASSESSMENT: Shortness of breath Acute COPD exacerbation Minimal coronary artery disease, per cardiac cath catheterization in 2013 Abnormal EKG without complaints of chest discomfort History of COPD with home oxygen use Hypertension Hyperlipidemia Diabetes Chronic nicotine dependence PLAN: An acute coronary event has been ruled out Obtain 2D echo to assess cardiac structure and function Resume home cardiac medications once list has been updated by pharmacy Continue treatment of COPD exacerbation per internal medicine Smoking cessation encouraged Abnormal EKG and multiple risk factors with symptoms of mainly SOB however also describing some chest tightness. Check stress test 11/18 to rule out ischemia. Nurse practitioner note has been reviewed by physician. Signing provider agrees with the documented findings, assessment, and plan of care. Past Medical History Past Medical History: COPD, Diabetes Mellitus, Hyperlipidemia, Hypertension, Osteoarthritis (OA), Respiratory Disorder, Thyroid Disorder, Vascular Disorder Additional Past Medical History / Comment(s): Chronic advanced COPD, chronic hypoxic hypercarbic respiratory failure, home oxygen at 4L/NC ATC, purulent tracheobronchitis, NIDDM, hyponatremia, hyperkalemia, severe constipation 2010, hypothyroidism, skeletal chest wall pain, anemia, PVD/PAD, past leg and foot wounds, past L distal radius fracture, gout, protein calorie malnutrition, UTI with sepsis, urinary retention with IDC since removed, confused at times per spouse and ambulates alittle History of Any Multi-Drug Resistant Organisms: None Reported Past Surgical History: Heart Catheterization, Hysterectomy, Tubal Ligation Additional Past Surgical History / Comment(s): 2011 cardiac cath, 2013 cardiac angiogram, colonoscopy/benign polypectomy, anal fistula repair, bilateral cataract removals/lens implants. Past Anesthesia/Blood Transfusion Reactions: Postoperative Nausea & Vomiting (PONV) Additional Past Anesthesia/Blood Transfusion Reaction / Comment(s): nausea one time Past Psychological History: Anxiety Smoking Status: Current every day smoker Past Alcohol Use History: None Reported Past Drug Use History: None Reported - Past Family History Mother History Unknown: Yes Family Medical History: Cancer, Thyroid Disorder Additional Family Medical History / Comment(s): Liver Cancer Father History Unknown: Yes Family Medical History: Cancer Medications and Allergies Home Medications Medication Instructions Recorded Confirmed Type Levothyroxine Sodium [Synthroid] 150 mcg PO DAILY #30 tablet 12/05/18 11/17/21 Rx Loratadine [Claritin] 10 mg PO DAILY 10/23/20 11/17/21 History Metoprolol Tartrate [Lopressor] 25 mg PO BID #60 tab 04/03/21 11/17/21 Rx Budesonide [Pulmicort] 1 mg INHALATION RT-BID ml 05/06/21 11/17/21 Rx Ammonium Lactate Lotion 1 applic TOPICAL BID 06/29/21 11/17/21 History [Lac-Hydrin 12% Lotion] Folic Acid 1 mg PO DAILY 06/29/21 11/17/21 History Pantoprazole [Protonix] 40 mg PO DAILY 06/29/21 11/17/21 History Tamsulosin [Flomax] 0.4 mg PO DAILY 06/29/21 11/17/21 History Atorvastatin [Lipitor] 20 mg PO HS 09/16/21 11/17/21 History Cholecalciferol [Vitamin D3 (25 50 mcg PO DAILY 09/16/21 11/17/21 History Mcg = 1000 Iu)] Ferrous Sulfate [Iron (65 MG 325 mg PO DAILY 09/16/21 11/17/21 History Elemental)] Formoterol Fumarate [Perforomist] 20 mcg INHALATION RT-BID #1 each 09/22/21 11/17/21 Rx amLODIPine [Norvasc] 10 mg PO DAILY #30 tab 09/22/21 11/17/21 Rx Albuterol Sulfate [Ventolin HFA] 2 puff INHALATION RT-Q4H PRN 11/17/21 11/17/21 History Aspirin 325 mg PO DAILY 11/17/21 11/17/21 History Budesonide/Formoterol Fumarate 2 puff INHALATION RT-BID 11/17/21 11/17/21 History [Symbicort 160-4.5 Mcg Inhaler] Furosemide [Lasix] 20 mg PO DAILY 11/17/21 11/17/21 History Hydrocortisone [Cortef] 10 mg PO BID 11/17/21 11/17/21 History INSULIN ASPART (NovoLOG) [NovoLOG See Protocol SQ ACHS 11/17/21 11/17/21 History (formulary)] Ipratropium-Albuterol Nebulize 3 ml INHALATION RT-Q6H PRN 11/17/21 11/17/21 History [Duoneb 0.5 mg-3 mg/3 ml Soln] Multivitamins, Thera [Multivitamin 1 tab PO DAILY 11/17/21 11/17/21 History (formulary)] Vitamin B Complex 1 cap PO DAILY 11/17/21 11/17/21 History glipiZIDE [Glucotrol] 5 mg PO BID 11/17/21 11/17/21 History Allergies Allergy/AdvReac Type Severity Reaction Status Date / Time bacitracin Allergy Rash/Hives Verified 11/17/21 11:30 [From Neosporin ([id number])] neomycin Allergy Rash/Hives Verified 11/17/21 11:30 [From Neosporin ([id number])] Penicillins Allergy Rash/Hives Verified 11/17/21 11:30 polymyxin B Allergy Rash/Hives Verified 11/17/21 11:30 [From Neosporin ([id number])] trimethoprim [From Polytrim] Allergy Rash/Hives Verified 11/17/21 11:30 levofloxacin [From Levaquin] AdvReac WEAKNESS Verified 11/17/21 11:30 metformin AdvReac Diarrhea Verified 11/17/21 11:30 ELDA/POLY/DEX AdvReac Rash/Hives Uncoded 11/17/21 11:30 Physical Exam Vitals: Vital Signs Temp Pulse Resp BP Pulse Ox 11/17/21 09:16 81 16 125/65 100 11/17/21 07:48 80 16 125/65 100 11/17/21 07:33 98 11/17/21 05:30 98.1 F 80 18 130/70 99 11/17/21 01:00 77 16 11/16/21 21:00 82 18 116/67 11/16/21 20:00 80 16 11/16/21 18:40 84 18 155/66 98 11/16/21 16:26 85 16 136/70 95 11/16/21 15:23 81 11/16/21 15:14 80 11/16/21 12:27 97.8 F 18 11/16/21 12:23 94 18 138/75 100 Results 11/17/21 05:59 11/17/21 05:59 Cardiac Enzymes 11/16/21 11/16/21 11/16/21 Range/Units 12:44 14:27 18:21 AST 18 (14-36) U/L Troponin I <0.012 <0.012 (0.000-0.034) ng/mL 11/16/21 Range/Units 21:14 AST (14-36) U/L Troponin I <0.012 (0.000-0.034) ng/mL Coagulation 11/16/21 Range/Units 12:44 PT 9.5 (9.0-12.0) sec APTT 20.5 L (22.0-30.0) sec CBC 11/16/21 11/17/21 Range/Units 12:44 05:59 WBC 9.3 8.31 (3.8-10.6) k/uL RBC 4.05 3.73 L (3.80-5.40) m/uL Hgb 11.7 10.7 L (11.4-16.0) gm/dL Hct 37.8 35.9 L (34.0-46.0) % Plt Count 284 241 (150-450) k/uL Comprehensive Metabolic Panel 11/16/21 11/17/21 Range/Units 12:44 05:59 Sodium 135 L 139 (137-145) mmol/L Potassium 4.3 4.6 (3.5-5.1) mmol/L Chloride 96 L 100 (98-107) mmol/L Carbon Dioxide 40 H 34.8 H (22-30) mmol/L BUN 20 H 26.9 (7-17) mg/dL Creatinine 0.51 L 0.5 L (0.52-1.04) mg/dL Glucose 134 H 117 H (74-99) mg/dL Calcium 9.4 9.3 (8.4-10.2) mg/dL AST 18 (14-36) U/L ALT 11 (4-34) U/L Alkaline Phosphatase 51 (38-126) U/L Total Protein 6.0 L (6.3-8.2) g/dL Albumin 3.5 (3.5-5.0) g/dL Current Medications Generic Name Dose Route Start Last Admin Trade Name Freq PRN Reason Stop Dose Admin Albuterol/Ipratropium 3 ml 11/16/21 20:00 11/17/21 07:32 Ipratropium-Albuterol 3 Ml Neb INHALATION Not Given RT-TID HEIKE Heparin Sodium (Porcine) 5,000 unit 11/16/21 21:00 11/17/21 07:52 Heparin Sodium,Porcine/Pf 5,000 Unit/0.5 Ml Syringe SQ 5,000 unit Q12HR HEIKE Administration Methylprednisolone Sodium Succinate 40 mg 11/17/21 09:00 11/17/21 07:53 Methylprednisolone Sod Succi 40 Mg/Ml 1 Ml Vial IV 40 mg DAILY HEIKE Administration Naloxone HCl 0.2 mg 11/16/21 15:17 Naloxone 0.4 Mg/Ml 1 Ml Vial IV Q2M PRN Opioid Reversal 11/17/21 05:59 11/17/21 05:59
--- NOTE | 2021-11-17 13:55 | CA ---
Transthoracic Echo Report Name: Amada Castellanos Age: 76 Gender: F : 1945 Exam Date: 11/17/2021 07:34 Exam Location: [place] [facility] Ht (in): 65 Wt (lb): 120 Ordering Physician: Solis Berrios MD Attending/Referring Phys: Sales Operations Specialist July Green RDCS Procedure CPT: Indications: Chest Pain Cardiac Hx: Technical Quality: Good Contrast 1: Total Dose (mL): Contrast 2: Total Dose (mL): MEASUREMENTS (Male / Female) Normal Values 2D ECHO LV Diastolic Diameter PLAX 4.6 cm 4.2 - 5.9 / 3.9 - 5.3 cm LV Systolic Diameter PLAX 2.5 cm IVS Diastolic Thickness 0.9 cm 0.6 - 1.0 / 0.6 - 0.9 cm LVPW Diastolic Thickness 1.1 cm 0.6 - 1.0 / 0.6 - 0.9 cm LV Relative Wall Thickness 0.4 RV Internal Dim ED PLAX 2.0 cm M-MODE Aortic Root Diameter MM 3.3 cm LA Systolic Diameter MM 1.7 cm LA Ao Ratio MM 0.5 MV E Point Septal Separation 0.9 cm AV Cusp Separation MM 1.6 cm DOPPLER AV Peak Velocity 136.2 cm/s AV Peak Gradient 7.4 mmHg AI Peak Velocity 127.9 cm/s AI Peak Gradient 6.5 mmHg AI Pressure Half Time 448.1 ms MV Area PHT 3.7 cm??? MR Peak Velocity 112.9 cm/s MR Peak Gradient 5.1 mmHg Mitral E Point Velocity 70.2 cm/s Mitral A Point Velocity 85.8 cm/s Mitral E to A Ratio 0.8 MV Deceleration Time 206.6 ms MV E' Velocity 10.5 cm/s Mitral E to MV E' Ratio 6.7 TR Peak Velocity 150.8 cm/s TR Peak Gradient 9.1 mmHg Right Ventricular Systolic Press 14.1 mmHg FINDINGS Left Ventricle Left ventricular cavity size normal. Left ventricular ejection fraction is estimated at 55-60_%. Right Ventricle The right ventricle is normal in size and function. Right Atrium The right atrium is normal in size. Left Atrium The left atrium is normal in size. Mitral Valve Structurally normal mitral valve without significant stenosis or prolapse. There is mild mitral regurgitation. Aortic Valve Structurally normal aortic valve without significant sclerosis or stenosis. There is no aortic regurgitation. Tricuspid Valve Structurally normal tricuspid valve without significant stenosis. Pulmonary artery systolic pressure is normal. Mild tricuspid regurgitation. Pulmonic Valve Structurally normal pulmonic valve without significant stenosis. There is no pulmonic regurgitation. Pericardium Normal pericardium without effusion. Aorta Normal aortic root dimension. CONCLUSIONS Normal left ventricular ejection fraction 55-60% Mild mitral regurgitation Mild tricuspid regurgitation Normal RVSP Previewed by: Dr. Heri Long DO (Electronically Signed) Final Date: 17 Nov 2021 13:54
[2021-11-17] MEDS ORDERED: ALBUTEROL HFA INHALER INHALATION PRN (15:47)
--- NOTE | 2021-11-17 15:47 | P.PN ---
Subjective Patient was examined again in the emergency department not complaining of any worsening shortness of breath. She denies any chest pain, palpitations or lower extremity swelling. She continues to be on 3 L nasal cannula currently uses around 4 L at home. Objective - Vital Signs Vital signs: Vital Signs Temp 98.1 F 11/17/21 05:30 Pulse 97 11/17/21 12:41 Resp 16 11/17/21 12:41 BP 125/65 11/17/21 12:41 Pulse Ox 98 11/17/21 12:41 FiO2 Intake & Output 11/16/21 11/17/21 11/17/21 18:59 06:59 18:59 Weight 44.906 kg - Exam Gen. patient is awake alert oriented 3 Cardio normal S1/S2 Respiratory wheezing bilaterally improved compared to yesterday Abdomen soft, nontender Extremity no pitting edema Currently on 3 L nasal cannula - Labs CBC & Chem 7: 11/17/21 05:59 11/17/21 05:59 Labs: Abnormal Lab Results - Last 24 Hours (Table) 11/17/21 11/17/21 Range/Units 05:59 05:59 RBC 3.73 L (4.10-5.20) X 10*6/uL Hgb 10.7 L (12.0-15.0) g/dL Hct 35.9 L (37.2-46.3) % MCHC 29.8 L (32.0-37.0) g/dL RDW 14.6 H (11.5-14.5) % Immature Gran # 0.10 H (0.00-0.04) X 10*3/uL Eosinophils # 0.01 L (0.04-0.35) X 10*3/uL Carbon Dioxide 34.8 H (20.0-27.5) mmol/L Anion Gap 3.90 L (10.00-18.00) mmol/L Creatinine 0.5 L (0.6-1.5) mg/dL BUN/Creatinine Ratio 55.35 H (12.00-20.00) Ratio Glucose 117 H (70-110) mg/dL Assessment and Plan Assessment: Assessment #1 acute hypoxic respiratory distress secondary to COPD exacerbation #2 nonspecific EKG changes noted no chest pain #3 essential hypertension #4 hyperlipidemia #5 COPD exacerbation #6 diabetes mellitus type 2 [id number] #7 hyperthyroidism Plan: -Admit to medicine for close monitoring -Aspiration/fall precaution -IV methylprednisolone 40 mg daily -Duonebs every 6 hours scheduled -EKG reviewed, monitor cardiac troponin -Cardiology consulted, 2-D echocardiogram reviewed unremarkable. -We'll not initiate any antibiotics as there is no significant change in cons istency or volume of sputum -Reconcile medications once confirmed with pharmacy -Due to prophylaxis Lovenox
[2021-11-17] MEDS: SYMBICORT 160-4.5 MCG INHALER INHALATION SCH (20:17)
[2021-11-17] MEDS: METOPROLOL TARTRATE 25 MG TAB PO SCH (20:57)
[2021-11-17] MEDS: ATORVASTATIN 20 MG TAB PO SCH (20:57)
[2021-11-18 07:23] LABS: Glucose,Whole Blood 100 mg/dL (75-99)
[2021-11-18] MEDS ORDERED: AMINOPHYLLINE 500 MG/20 ML VIAL IV PRN (07:26)
[2021-11-18] MEDS ORDERED: CAFFEINE CITRATE 60 MG/3 ML VIAL IV PRN (07:26)
[2021-11-18] MEDS ORDERED: REGADENOSON 0.4 MG/5 ML SYRINGE IV PRN (07:26)
[2021-11-18] MEDS: SYMBICORT 160-4.5 MCG INHALER INHALATION SCH ×2 (08:14→20:20)
[2021-11-18] MEDS: IPRATROPIUM-ALBUTEROL 3 ML NEB INHALATION SCH ×3 (08:14→20:20)
[2021-11-18] MEDS: methylPREDNISolone SOD SUCCI 40 MG/ML 1 ML VIAL IV SCH (09:41)
[2021-11-18] MEDS: HEPARIN SODIUM,PORCINE/PF 5,000 UNIT/0.5 ML SYRINGE SQ SCH ×2 (09:41→21:21)
[2021-11-18] MEDS: METOPROLOL TARTRATE 25 MG TAB PO SCH ×2 (09:48→21:21)
[2021-11-18] MEDS: PANTOPRAZOLE 40 MG TABLET PO SCH (09:48)
[2021-11-18] MEDS: LEVOTHYROXINE 75 MCG TAB PO SCH (09:48)
[2021-11-18] MEDS: TAMSULOSIN 0.4 MG CAP.ER.24H PO SCH (09:48)
[2021-11-18] MEDS: amLODIPine 10 MG TAB PO SCH (09:48)
[2021-11-18] MEDS: FUROSEMIDE 20 MG TAB PO SCH (09:48)
[2021-11-18] MEDS: ASPIRIN 81 MG PO SCH (09:48)
[2021-11-18 11:25] LABS: Glucose,Whole Blood 162 mg/dL (75-99)
--- NOTE | 2021-11-18 13:20 | P.PN ---
Subjective HISTORY OF PRESENT ILLNESS: This is a 76-year-old female with a past medical history significant for COPD with home oxygen use, chronic nicotine dependence, hyperlipidemia, hypertension, and diabetes. Patient follows in the office with Dr. Vo. We have been asked to see the patient in consultation for abnormal EKG. Patient examined at the [facility]. Patient presented to the hospital with a chief complaint of shortness of breath. Patient states she has been feeling progressively more short of breath for the past week. The patient does report continued nicotine use and states that she smokes 1-5 cigarettes a day. She denies having any chest pain or pressure. She is being treated for COPD exacerbation and she was placed on IV steroids. * EKG reveals sinus mechanism with T-wave inversions in inferior leads, biphasic T waves in V3, and T-wave inversions in V4V6 * Chest xray negative for acute process * Laboratory data: WBC 8.31. Hemoglobin 10.7. Platelet count 241. Sodium 139. Potassium 4.6. BUN 26. Creatinine 0.5. Troponin negative 3. * Current home cardiac medications are unknown at this time as patient's medication list has not been reconciled by pharmacy * Most recent echocardiogram obtained in December 2018 revealed ejection fraction 55%, hypokinesis of LV be posterior wall, mild LVH, mild MR, mild TR * Cardiac catheterization history: 2013 revealing minimal CAD * Patient underwent Lexiscan stress test in January 2019 which was negative for ischemia 11/18 Patient seen and examined. Patient states her breathing was somewhat better however somewhat worse this afternoon. Denies any chest pain or pressure. Echo showed preserved EF without significant valvular disease. She was scheduled for stress test however drink coffee this morning. PHYSICAL EXAM: VITAL SIGNS: Reviewed. GENERAL: Well-developed in no acute distress. HEENT: Head is normocephalic. Pupils are equal, round. Sclerae anicteric. Mucous membranes of the mouth are moist. Neck supple. No JVD or thyromegaly LUNGS: Respirations even and unlabored. Lungs diminished with mild expiratory wheezing throughout HEART: Regular rate and rhythm. S1 and S2 heard. Systolic murmur noted ABDOMEN: Soft. Nondistended. Nontender. EXTREMITIES: Normal range of motion. No clubbing or cyanosis. Peripheral pulses intact. No lower extremity edema NEUROLOGIC: Awake and alert. Oriented x 3. ASSESSMENT: Shortness of breath Acute COPD exacerbation Minimal coronary artery disease, per cardiac cath catheterization in 2013 Abnormal EKG without complaints of chest discomfort History of COPD with home oxygen use Hypertension Hyperlipidemia Diabetes Chronic nicotine dependence PLAN: An acute coronary event has been ruled out Abnormal EKG and multiple risk factors with symptoms of mainly SOB however also describing some chest tightness. Attempted stress test 11/18 however drink coffee and therefore we will check stress test tomorrow 11/19. Objective - Vital Signs Vital signs: Vital Signs Temp 98.5 F 11/18/21 07:00 Pulse 83 11/18/21 11:19 Resp 16 11/18/21 11:19 BP 123/62 11/18/21 07:00 Pulse Ox 96 11/18/21 08:14 FiO2 Intake & Output 11/17/21 11/18/21 11/18/21 18:59 06:59 18:59 Other: Voiding Method Bedside Commode External Catheter - Labs CBC & Chem 7: 11/17/21 05:59 11/17/21 05:59 Labs: Abnormal Lab Results - Last 24 Hours (Table) 11/18/21 11/18/21 Range/Units 07:03 11:21 POC Glucose (mg/dL) 100 H 162 H (75-99) mg/dL
--- NOTE | 2021-11-18 13:32 | P.PN ---
Subjective Patient was examined at bedside today denies any worsening shortness of breath continues to require 3 L of nasal cannula. Was anticipated for cardiac stress test today unfortunately she drank coffee was postponed until tomorrow. Objective - Vital Signs Vital signs: Vital Signs Temp 98.5 F 11/18/21 07:00 Pulse 83 11/18/21 11:19 Resp 16 11/18/21 11:19 BP 123/62 11/18/21 07:00 Pulse Ox 96 11/18/21 08:14 FiO2 Intake & Output 11/17/21 11/18/21 11/18/21 18:59 06:59 18:59 Other: Voiding Method Bedside Commode External Catheter - Exam Gen. patient is awake alert oriented 3 Cardio normal S1/S2 Respiratory continues to wheezing bilaterally improved compared to yesterday Abdomen soft, nontender Extremity no pitting edema Currently on 3 L nasal cannula - Labs CBC & Chem 7: 11/17/21 05:59 11/17/21 05:59 Labs: Abnormal Lab Results - Last 24 Hours (Table) 11/18/21 11/18/21 Range/Units 07:03 11:21 POC Glucose (mg/dL) 100 H 162 H (75-99) mg/dL Assessment and Plan Assessment: Assessment #1 acute hypoxic respiratory distress secondary to COPD exacerbation #2 nonspecific EKG changes noted no chest pain #3 essential hypertension #4 hyperlipidemia #5 COPD exacerbation #6 diabetes mellitus type 2 [id number] #7 hypothyrodism Plan: -Admit to medicine for close monitoring -Aspiration/fall precaution -IV methylprednisolone 40 mg daily -Duonebs every 6 hours scheduled -EKG reviewed, monitor cardiac troponin -Anticipated for cardiac stress test tomorrow. -We'll not initiate any antibiotics as there is no significant change in consistency or volume of sputum -Dvt prophylaxis Lovenox
[2021-11-18 16:24] VITALS: BMI 16.0
[2021-11-18 16:31] LABS: Glucose,Whole Blood 249 mg/dL (75-99)
[2021-11-18] MEDS: INSULIN ASPART (NovoLOG) 100 UNIT/ML VIAL SQ SCH ×2 (17:19→21:21)
[2021-11-18 20:51] LABS: Glucose,Whole Blood 315 mg/dL (75-99)
[2021-11-18] MEDS: ATORVASTATIN 20 MG TAB PO SCH (21:21)
[2021-11-19 07:05] LABS: Glucose,Whole Blood 87 mg/dL (75-99)
[2021-11-19] MEDS: LEVOTHYROXINE 75 MCG TAB PO SCH (07:19)
[2021-11-19] MEDS: INSULIN ASPART (NovoLOG) 100 UNIT/ML VIAL SQ SCH ×3 (07:19→17:39)
[2021-11-19] MEDS: ASPIRIN 81 MG PO SCH ×2 (07:19→11:25)
[2021-11-19] MEDS: PANTOPRAZOLE 40 MG TABLET PO SCH (07:19)
[2021-11-19] MEDS: METOPROLOL TARTRATE 25 MG TAB PO SCH ×2 (07:20→11:24)
[2021-11-19] MEDS: SYMBICORT 160-4.5 MCG INHALER INHALATION SCH (07:47)
[2021-11-19] MEDS: IPRATROPIUM-ALBUTEROL 3 ML NEB INHALATION SCH ×2 (07:47→10:59)
[2021-11-19] MEDS ORDERED: REGADENOSON 0.4 MG/5 ML SYRINGE IV ONE (08:00)
[2021-11-19] MEDS: TAMSULOSIN 0.4 MG CAP.ER.24H PO SCH (11:23)
[2021-11-19] MEDS: FUROSEMIDE 20 MG TAB PO SCH (11:23)
[2021-11-19] MEDS: methylPREDNISolone SOD SUCCI 40 MG/ML 1 ML VIAL IV SCH (11:24)
[2021-11-19] MEDS: HEPARIN SODIUM,PORCINE/PF 5,000 UNIT/0.5 ML SYRINGE SQ SCH (11:24)
[2021-11-19] MEDS: amLODIPine 10 MG TAB PO SCH (11:24)
[2021-11-19 11:27] LABS: Glucose,Whole Blood 92 mg/dL (75-99)
--- NOTE | 2021-11-19 11:40 | NM ---
EXAMINATION TYPE: NM stress lexiscan cardiolite DATE OF EXAM: 11/19/2021 COMPARISON: NONE HISTORY: History of diabetes and tobacco use along with COPD presents with chest pain and difficulty in breathing. Abnormal EKG. TECHNIQUE: After the intravenous administration of 9.6 mCi Tc 99m Sestamibi - Cardiolite resting SPE CT images acquired 65 minutes post injection. The patient received 0.4mg Lexiscan, 24.8 mCi Tc 99m Sestamibi - Stress images obtained [address] injection FINDINGS: Review of stress and rest SPECT images demonstrates no distinct perfusion abnormality. Gated analysi s shows normal wall motion with an estimated left ventricular ejection fraction of 50 %. IMPRESSION: No scintigraphic evidence for reversible ischemia.
--- NOTE | 2021-11-19 12:10 | CA ---
Lexiscan Nuclear Stress Test Report Name: Amada Castellanos Exam Date: 11/19/2021 09:44 Exam Location: [facility] Ht (in): 66 Wt (lb): 99 BSA: 1.48 Ordering Phys: Heri Long DO Referring Phys: TRAVIS,, Technologist: Deo Godinez Age: 76 Gender: F : 1945 Procedure CPT: Indications: Reflex order-Stress test ICD-10 Codes: Patient History: CHEST PAIN, DIFFICULTY IN BREATHING, DIABETES, HX OF TOBBACCO USE 0.25 PPD X 62 YEARS, COPD Medications: Meds past 24 hrs: Pretest Chest Pain: STRESS TEST Lexiscan Protocol Exercise Duration (min:sec): 01:[address] Depressions (mm): Angina Score: Demarco Score: Resting HR (bpm): 69 Peak HR (bpm): 89 Resting BP (mmHg): 144 / 72 Peak BP (mmHg): 144 / 72 MPHR: 142 Target HR: 121 % MPHR: 63 METS: 1.0 Total Dose: Peak Dose: Atropine: Double Product: 83275 BP Response: Stress Termination: INFUSION COMPLETE Stress Symptoms: DIFFICULTY IN BREATHING,HEADACHE Stress Summary: ECG ANALYSIS Resting ECG: Stress ECG: CONCLUSIONS At baseline EKG showed normal sinus rhythm, normal axis, diffuse T-wave inversions V3 through V6, inferior leads. Patient recieved IV infusion of Lexiscan 0.4mg and at peak infusion EKG showed no significant change from baseline. Conclusions: 1. Nondiagnostic EKG portion secondary to baseline EKG abnormalities. 2. Nuclear imaging to be reported separately. Dr. Heri Long DO (Electronically Signed) Final Date: 19 November 2021 12:09
--- NOTE | 2021-11-19 12:12 | P.PN ---
Subjective Progress Note Date: 11/19/21 HISTORY OF PRESENT ILLNESS: This is a 76-year-old female with a past medical history significant for COPD with home oxygen use, chronic nicotine dependence, hyperlipidemia, hypertension, and diabetes. Patient follows in the office with Dr. Vo. We have been asked to see the patient in consultation for abnormal EKG. Patient examined at the bedside. Patient presented to the hospital with a chief complaint of shortness of breath. Patient states she has been feeling progressively more short of breath for the past week. The patient does report continued nicotine use and states that she smokes 1-5 cigarettes a day. She denies having any chest pain or pressure. She is being treated for COPD exacerbation and she was placed on IV steroids. * EKG reveals sinus mechanism with T-wave inversions in inferior leads, biphasic T waves in V3, and T-wave inversions in V4V6 * Chest xray negative for acute process * Laboratory data: WBC 8.31. Hemoglobin 10.7. Platelet count 241. Sodium 139. Potassium 4.6. BUN 26. Creatinine 0.5. Troponin negative 3. * Current home cardiac medications are unknown at this time as patient's medication list has not been reconciled by pharmacy * Most recent echocardiogram obtained in December 2018 revealed ejection fraction 55%, hypokinesis of LV be posterior wall, mild LVH, mild MR, mild TR * Cardiac catheterization history: 2013 revealing minimal CAD * Patient underwent Lexiscan stress test in January 2019 which was negative for ischemia 11/18 Patient seen and examined. Patient states her breathing was somewhat better however somewhat worse this afternoon. Denies any chest pain or pressure. Echo showed preserved EF without significant valvular disease. She was scheduled for stress test however drink coffee this morning. 11/19/2021 Patient examined this morning. She denies chest pain or pressure. Denies SOB. Patient underwent Anna scan stress test today which was negative for ischemia. PHYSICAL EXAM: VITAL SIGNS: Reviewed. GENERAL: Well-developed in no acute distress. HEENT: Head is normocephalic. Pupils are equal, round. Sclerae anicteric. Mucous membranes of the mouth are moist. Neck supple. No JVD or thyromegaly LUNGS: Respirations even and unlabored. Lungs diminished with mild expiratory wheezing throughout HEART: Regular rate and rhythm. S1 and S2 heard. Systolic murmur noted ABDOMEN: Soft. Nondistended. Nontender. EXTREMITIES: Normal range of motion. No clubbing or cyanosis. Peripheral pulses intact. No lower extremity edema NEUROLOGIC: Awake and alert. Oriented x 3. ASSESSMENT: Shortness of breath Acute COPD exacerbation Minimal coronary artery disease, per cardiac cath catheterization in 2013 Abnormal EKG without complaints of chest discomfort History of COPD with home oxygen use Hypertension Hyperlipidemia Diabetes Chronic nicotine dependence PLAN: Patient underwent Lexiscan today which was negative for ischemia Continue current cardiac medications Stable from a cardiac standpoint. Patient to follow up on an outpatient basis. We will sign off. Please reconsult if needed. Nurse practitioner note has been reviewed by physician. Signing provider agrees with the documented findings, assessment, and plan of care. Objective - Vital Signs Vital signs: Vital Signs Temp 98.1 F 11/19/21 07:00 Pulse 84 11/19/21 08:03 Resp 16 11/19/21 07:00 BP 142/66 11/19/21 07:00 Pulse Ox 100 11/19/21 07:00 FiO2 Intake & Output 11/18/21 11/19/21 11/19/21 18:59 06:59 18:59 Intake Total 480 Output Total 300 Balance -300 480 Weight 44.906 kg Intake: Oral 480 Output: Urine 300 Other: Voiding Method Bedside Commode External Catheter - Labs CBC & Chem 7: 11/17/21 05:59 11/17/21 05:59 Labs: Abnormal Lab Results - Last 24 Hours (Table) 11/18/21 11/18/21 Range/Units 16:29 20:49 POC Glucose (mg/dL) 249 H 315 H (75-99) mg/dL
--- NOTE | 2021-11-19 12:38 | P.DS ---
Providers Date of admission: 11/17/21 12:46 Attending physician: Joseph Linares MD Primary care physician: Chris Sears Assessment: Patient is a 76-year-old female with a past medical history significant for essential hypertension, hyperlipidemia, COPD on 4 L nasal cannula at home and diabetes mellitus [id number] the presents a hospital complaining of shortness of breath. This apparently began in the last 24-48 hours she is bringing up very minimal sputum is having some shortness of breath. Patient also complains of subjective chills but denies any episodes of fever, chest pain or palpitations. Patient is compliant with her medication. At bedside she is currently at 3 L saturating 92% above vital signs are otherwise stable. Chest x-ray was completed which is stable. EKG also has some nonspecific T-wave inversions. Cardiology was consulted from the emergency department, Cardiac troponin negative 1 Patient was examined at bedside today continues to deny any chest pain, palpitations or any worsening shortness of breath. She does use 3 L at home continues to require the same amount here. Patient underwent a stress test with cardiology which was negative and the patient is okay be discharged from their perspective. Patient is very pleasant today, he by her daughter present at bedside. She will be being discharged home. She will be discharged on prednisone 40 mg to complete another 5 more days. She does have all inhalers at home. 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 Patient Condition at Discharge: Stable Plan - Discharge Summary New Discharge Prescriptions: New Aspirin 81 mg PO DAILY 30 Days #30 tab predniSONE [Deltasone] 40 mg PO DAILY 5 Days #5 tab Continue Levothyroxine Sodium [Synthroid] 150 mcg PO DAILY #30 tablet Loratadine [Claritin] 10 mg PO DAILY Ammonium Lactate Lotion [Lac-Hydrin 12% Lotion] 1 applic TOPICAL BID Folic Acid 1 mg PO DAILY Cholecalciferol [Vitamin D3 (25 Mcg = 1000 Iu)] 50 mcg PO DAILY amLODIPine [Norvasc] 10 mg PO DAILY #30 tab Formoterol Fumarate [Perforomist] 20 mcg INHALATION RT-BID #1 each Albuterol Sulfate [Ventolin HFA] 2 puff INHALATION RT-Q4H PRN PRN Reason: Shortness Of Breath Furosemide [Lasix] 20 mg PO DAILY glipiZIDE [Glucotrol] 5 mg PO BID Hydrocortisone [Cortef] 10 mg PO BID Ipratropium-Albuterol Nebulize [Duoneb 0.5 mg-3 mg/3 ml Soln] 3 ml INHALATION RT-Q6H PRN PRN Reason: Shortness Of Breath Multivitamins, Thera [Multivitamin (formulary)] 1 tab PO DAILY Vitamin B Complex 1 cap PO DAILY Metoprolol Tartrate [Lopressor] 25 mg PO BID #60 tab Budesonide [Pulmicort] 1 mg INHALATION RT-BID ml Pantoprazole [Protonix] 40 mg PO DAILY Tamsulosin [Flomax] 0.4 mg PO DAILY Atorvastatin [Lipitor] 20 mg PO HS Ferrous Sulfate [Iron (65 MG Elemental)] 325 mg PO DAILY Budesonide/Formoterol Fumarate [Symbicort 160-4.5 Mcg Inhaler] 2 puff INHALATION RT-BID INSULIN ASPART (NovoLOG) [NovoLOG (formulary)] See Protocol SQ ACHS Discontinued Aspirin 325 mg PO DAILY Discharge Medication List Levothyroxine Sodium [Synthroid] 150 mcg PO DAILY #30 tablet 12/05/18 [Rx] Loratadine [Claritin] 10 mg PO DAILY 10/23/20 [History] Metoprolol Tartrate [Lopressor] 25 mg PO BID #60 tab 04/03/21 [Rx] Budesonide [Pulmicort] 1 mg INHALATION RT-BID ml 05/06/21 [Rx] Ammonium Lactate Lotion [Lac-Hydrin 12% Lotion] 1 applic TOPICAL BID 06/29/21 [History] Folic Acid 1 mg PO DAILY 06/29/21 [History] Pantoprazole [Protonix] 40 mg PO DAILY 06/29/21 [History] Tamsulosin [Flomax] 0.4 mg PO DAILY 06/29/21 [History] Atorvastatin [Lipitor] 20 mg PO HS 09/16/21 [History] Cholecalciferol [Vitamin D3 (25 Mcg = 1000 Iu)] 50 mcg PO DAILY 09/16/21 [History] Ferrous Sulfate [Iron (65 MG Elemental)] 325 mg PO DAILY 09/16/21 [History] Formoterol Fumarate [Perforomist] 20 mcg INHALATION RT-BID #1 each 09/22/21 [Rx] amLODIPine [Norvasc] 10 mg PO DAILY #30 tab 09/22/21 [Rx] Albuterol Sulfate [Ventolin HFA] 2 puff INHALATION RT-Q4H PRN 11/17/21 [History] Budesonide/Formoterol Fumarate [Symbicort 160-4.5 Mcg Inhaler] 2 puff INHALATION RT-BID 11/17/21 [History] Furosemide [Lasix] 20 mg PO DAILY 11/17/21 [History] Hydrocortisone [Cortef] 10 mg PO BID 11/17/21 [History] INSULIN ASPART (NovoLOG) [NovoLOG (formulary)] See Protocol SQ ACHS 11/17/21 [History] Ipratropium-Albuterol Nebulize [Duoneb 0.5 mg-3 mg/3 ml Soln] 3 ml INHALATION RT-Q6H PRN 11/17/21 [History] Multivitamins, Thera [Multivitamin (formulary)] 1 tab PO DAILY 11/17/21 [History] Vitamin B Complex 1 cap PO DAILY 11/17/21 [History] glipiZIDE [Glucotrol] 5 mg PO BID 11/17/21 [History] Aspirin 81 mg PO DAILY 30 Days #30 tab 11/19/21 [Rx] predniSONE [Deltasone] 40 mg PO DAILY 5 Days #5 tab 11/19/21 [Rx] Follow up Appointment(s)/Referral(s): Chris Sears MD [Primary Care Provider] - 1-2 days Heri Long DO [STAFF PHYSICIAN] - 1 Week Discharge Disposition: HOME WITH HOME HEALTH SERVICES
[2021-11-19 14:13] VITALS: BP 103/61; PULSE 56; RESP 18; TEMP 98.4
[2021-11-19 16:44] LABS: Glucose,Whole Blood 215 mg/dL (75-99)
--- NOTE | 2021-11-24 12:40 | CDI ---
Documentation Clarification Form Date: 11/24/21 From: Sharifa Chau Admit Date: 11/17/2021 12:46:00 PM Patient Name: Amada Castellanos Visit Number: [id number] Discharge Date: 11/19/2021 05:52:00 PM ATTENTION: The Clinical Documentation Specialists (CDI) and [facility] Coding Staff appreciate your assistance in clarifying documentation. Please respond to the clarification below the line at the bottom and electronically sign. The CDI & [facility] Coding staff will review the response and follow-up if needed. Please note: Queries are made part of the Legal Health Record. If you have any questions, please contact the author of this message via ITS. Dr. Joseph Linares, The Registered Dietitian assessment on 11/18 indicates this patient meets criteria for severe chronic malnutrition. Based on this information and the findings below, is there an additional diagnosis that is clinically appropriate for this patient? History/Risk Factors: protein calorie malnutrition, COPD, chronic respiratory failure with hypercapnia & hypoxia, home oxygen, DM HLD Clinical Indicators: TP 6.0, Albumin 3.5, BMI 16.0, Height 5' 6", Weight 44.[address] Consult Assessment: severe chronic malnutrition, emaciated, underweight, significant weight loss; NFPE: moderate/severe muscle/fat wasting bodywide Current BMI: 16.0 Treatment: Heart healthy diet, Ensure Enlive TID Is there an additional diagnosis that is clinically appropriate for this patient? [ 1 ] Mild Protein-Calorie Malnutrition [ ] Moderate Protein-Calorie Malnutrition [ ] Severe Protein-Calorie Malnutrition [ ] Other condition, please specify [ ] Unable to Determine MTDD
== END 2021-11-19 17:52 | disposition home or self-care (01) | DRG 191 ==
LOC: EC 12:18 → 6NMEDSUR 15:17 → OBSVTOIN 11-17 12:46 → 4SSUR 11-17 12:49
PROVIDERS: ADMIT Internal Medicine; ATTEND Internal Medicine
DX: J44.1 Chronic obstructive pulmonary disease with (acute) exacerbation (principal); J96.12 Chronic respiratory failure with hypercapnia; E44.1 Mild protein-calorie malnutrition; J96.11 Chronic respiratory failure with hypoxia; Z68.1 Body mass index [BMI] 19.9 or less, adult; E11.51 Type 2 diabetes mellitus with diabetic peripheral angiopathy without gangrene; D64.9 Anemia, unspecified; E78.5 Hyperlipidemia, unspecified; E03.9 Hypothyroidism, unspecified; Z79.4 Long term (current) use of insulin; Z20.822 Contact with and (suspected) exposure to COVID-19; I10 Essential (primary) hypertension; M19.90 Unspecified osteoarthritis, unspecified site; K59.00 Constipation, unspecified; F41.9 Anxiety disorder, unspecified; F17.210 Nicotine dependence, cigarettes, uncomplicated; Z71.6 Tobacco abuse counseling; Z99.81 Dependence on supplemental oxygen; Z79.82 Long term (current) use of aspirin; Z79.51 Long term (current) use of inhaled steroids; Z79.84 Long term (current) use of oral hypoglycemic drugs; Z79.890 Hormone replacement therapy; Z79.52 Long term (current) use of systemic steroids; Z79.899 Other long term (current) drug therapy; Z87.440 Personal history of urinary (tract) infections; Z86.19 Personal history of other infectious and parasitic diseases; Z87.39 Personal history of other diseases of the musculoskeletal system and connective tissue; Z87.81 Personal history of (healed) traumatic fracture; Z90.710 Acquired absence of both cervix and uterus; Z98.51 Tubal ligation status; Z87.42 Personal history of other diseases of the female genital tract; Z96.1 Presence of intraocular lens; Z98.42 Cataract extraction status, left eye; Z98.41 Cataract extraction status, right eye; Z86.010 Personal history of colon polyps; Z98.890 Other specified postprocedural states; Z88.1 Allergy status to other antibiotic agents; Z88.3 Allergy status to other anti-infective agents; Z88.0 Allergy status to penicillin; Z88.8 Allergy status to other drugs, medicaments and biological substances; Z80.0 Family history of malignant neoplasm of digestive organs; Z83.49 Family history of other endocrine, nutritional and metabolic diseases
CPT/HCPCS: 36415; 71046; 78452; 80048; 80053; 81003; 83735; 83880; 84484; 85025; 85610; 85730; 87502; 87635; 93005; 93017; 93306; 94640; 94760; 96365; 96366; 96372; 96375; 96376; 99285

== ENCOUNTER 2021-12-10 01:56 | Inpatient (IN) | payer MEDICARE, BC ==
[2021-12-10] MEDS ORDERED: methylPREDNISolone SOD SUCCI 125 MG/2 ML VIAL IV STA (01:58)
[2021-12-10] MEDS ORDERED: SODIUM CHLORIDE 0.9% 1,000 ML IV STA (01:58)
[2021-12-10] MEDS ORDERED: SODIUM CHLORIDE 0.9% 500 ML 500 ML IV STA (01:58)
[2021-12-10] MEDS ORDERED: IPRATROPIUM-ALBUTEROL 3 ML NEB INHALATION STA (01:58)
[2021-12-10] MEDS ORDERED: SODIUM CHLORIDE 0.9% 1,000 ML IV SCH (02:00)
--- NOTE | 2021-12-10 02:01 | ED ---
SOB HPI - General Stated Complaint: SHAYY Time Seen by Provider: 12/10/21 01:58 - History of Present Illness Initial Comments: Patient is weak - Related Data Home Medications Medication Instructions Recorded Confirmed RX: Loratadine [Claritin] 10 mg PO DAILY 10/23/20 11/17/21 RX: Ammonium Lactate Lotion 1 applic TOPICAL BID 06/29/21 11/17/21 [Lac-Hydrin 12% Lotion] RX: Folic Acid 1 mg PO DAILY 06/29/21 11/17/21 RX: Pantoprazole [Protonix] 40 mg PO DAILY 06/29/21 11/17/21 RX: Tamsulosin [Flomax] 0.4 mg PO DAILY 06/29/21 11/17/21 RX: Atorvastatin [Lipitor] 20 mg PO HS 09/16/21 11/17/21 RX: Cholecalciferol [Vitamin D3 50 mcg PO DAILY 09/16/21 11/17/21 (25 Mcg = 1000 Iu)] RX: Ferrous Sulfate [Iron (65 MG 325 mg PO DAILY 09/16/21 11/17/21 Elemental)] RX: Albuterol Sulfate [Ventolin 2 puff INHALATION RT-Q4H PRN 11/17/21 11/17/21 HFA] RX: Budesonide/Formoterol Fumarate 2 puff INHALATION RT-BID 11/17/21 11/17/21 [Symbicort 160-4.5 Mcg Inhaler] RX: Furosemide [Lasix] 20 mg PO DAILY 11/17/21 11/17/21 RX: Hydrocortisone [Cortef] 10 mg PO BID 11/17/21 11/17/21 RX: INSULIN ASPART (NovoLOG) See Protocol SQ ACHS 11/17/21 11/17/21 [NovoLOG (formulary)] RX: Ipratropium-Albuterol Nebulize 3 ml INHALATION RT-Q6H PRN 11/17/21 11/17/21 [Duoneb 0.5 mg-3 mg/3 ml Soln] RX: Multivitamins, Thera 1 tab PO DAILY 11/17/21 11/17/21 [Multivitamin (formulary)] RX: Vitamin B Complex 1 cap PO DAILY 11/17/21 11/17/21 RX: glipiZIDE [Glucotrol] 5 mg PO BID 11/17/21 11/17/21 Previous Rx's Medication Instructions Recorded RX: Levothyroxine Sodium 150 mcg PO DAILY #30 tablet 12/05/18 [Synthroid] RX: Metoprolol Tartrate [Lopressor] 25 mg PO BID #60 tab 04/03/21 RX: Budesonide [Pulmicort] 1 mg INHALATION RT-BID ml 05/06/21 RX: Formoterol Fumarate 20 mcg INHALATION RT-BID #1 each 09/22/21 [Perforomist] RX: amLODIPine [Norvasc] 10 mg PO DAILY #30 tab 09/22/21 RX: Aspirin 81 mg PO DAILY 30 Days #30 tab 11/19/21 RX: predniSONE [Deltasone] 40 mg PO DAILY 5 Days #5 tab 11/19/21 Allergies Allergy/AdvReac Type Severity Reaction Status Date / Time bacitracin Allergy Rash/Hives Verified 11/17/21 11:30 [From Neosporin ([id number])] neomycin Allergy Rash/Hives Verified 11/17/21 11:30 [From Neosporin ([id number])] Penicillins Allergy Rash/Hives Verified 11/17/21 11:30 polymyxin B Allergy Rash/Hives Verified 11/17/21 11:30 [From Neosporin ([id number])] trimethoprim [From Polytrim] Allergy Rash/Hives Verified 11/17/21 11:30 levofloxacin [From Levaquin] AdvReac WEAKNESS Verified 11/17/21 11:30 metformin AdvReac Diarrhea Verified 11/17/21 11:30 ELDA/POLY/DEX AdvReac Rash/Hives Uncoded 11/17/21 11:30 Review of Systems ROS Statement: Those systems with pertinent positive or pertinent negative responses have been documented in the HPI. ROS Other: All systems not noted in ROS Statement are negative. Past Medical History Past Medical History: COPD, Diabetes Mellitus, Hyperlipidemia, Hypertension, Osteoarthritis (OA), Respiratory Disorder, Thyroid Disorder, Vascular Disorder Additional Past Medical History / Comment(s): Chronic advanced COPD, chronic hypoxic hypercarbic respiratory failure, home oxygen at 4L/NC ATC, purulent tracheobronchitis, NIDDM, hyponatremia, hyperkalemia, severe constipation 2010, hypothyroidism, skeletal chest wall pain, anemia, PVD/PAD, past leg and foot wounds, past L distal radius fracture, gout, protein calorie malnutrition, UTI with sepsis, urinary retention with IDC since removed, confused at times per spouse and ambulates alittle History of Any Multi-Drug Resistant Organisms: None Reported Past Surgical History: Heart Catheterization, Hysterectomy, Tubal Ligation Additional Past Surgical History / Comment(s): 2011 cardiac cath, 2013 cardiac angiogram, colonoscopy/benign polypectomy, anal fistula repair, bilateral cataract removals/lens implants. Past Anesthesia/Blood Transfusion Reactions: Postoperative Nausea & Vomiting (PONV) Additional Past Anesthesia/Blood Transfusion Reaction / Comment(s): nausea one time Past Psychological History: Anxiety Smoking Status: Current every day smoker Past Alcohol Use History: None Reported Past Drug Use History: None Reported - Past Family History Mother History Unknown: Yes Family Medical History: Cancer, Thyroid Disorder Additional Family Medical History / Comment(s): Liver Cancer Father History Unknown: Yes Family Medical History: Cancer Course Vital Signs 12/10/21 12/10/21 12/10/21 02:00 02:07 03:10 Temperature 97.5 F L Pulse Rate 92 88 Respiratory 22 Rate Blood Pressure 141/72 O2 Sat by Pulse 100 92 L Oximetry 12/10/21 12/10/21 12/10/21 03:20 03:21 03:29 Temperature Pulse Rate 87 87 89 Respiratory Rate Blood Pressure O2 Sat by Pulse Oximetry Medical Decision Making - Lab Data Result diagrams: 12/10/21 02:26 12/10/21 02:26 - EKG Data -: EKG Interpreted by Me (EKG is sinus rhythm of 94 ME 146 QRS 110 QTC 378) Disposition Clinical Impression: COPD exacerbation, Altered mental status, Acute exacerbation of chronic o bstructive airways disease Disposition: ADMITTED IP TO THIS HOSP Condition: Fair Is patient prescribed a controlled substance at d/c from ED?: No
[2021-12-10 03:07] LABS: Basophils # (A) 0.1 k/uL (0-0.2); Basophils % (A) 1 %; Eosinophils % (A) 1 %; HGB 11.5 gm/dL (11.4-16.0); Hypochromasia Moderate; Lymphocytes # (A) 0.4 k/uL (1.0-4.8); Lymphocytes % (A) 4 %; MCH 29.4 pg (25.0-35.0); Mean Platelet Volume 7.5; Monocytes # (A) 0.5 k/uL (0-1.0); Monocytes % (A) 5 %; Neutrophils # (A) 7.7 k/uL (1.3-7.7); Neutrophils % (A) 88 %; Platelet Count 246 k/uL (150-450); RDW 14.3 % (11.5-15.5); WBC 8.8 k/uL (3.8-10.6)
[2021-12-10 03:27] LABS: ALT 11 U/L (4-34); AST 20 U/L (14-36); African American GFR (CKD) >90 (>60 ml/min/1.73 sqM); Albumin 3.3 g/dL (3.5-5.0); Alkaline Phosphatase 59 U/L (38-126); Anion Gap 1 mmol/L; Blood Urea Nitrogen 23 mg/dL (7-17); Calcium 8.6 mg/dL (8.4-10.2); Carbon Dioxide 33 mmol/L (22-30); Chloride 93 mmol/L (98-107); Glucose 172 mg/dL (74-99); INR 0.8 (<1.2); Magnesium 1.9 mg/dL (1.6-2.3); Non-African American GFR(CKD) >90 (>60 ml/min/1.73 sqM); Potassium 5.2 mmol/L (3.5-5.1); Prothrombin Time 9.3 sec (9.0-12.0); Sodium 127 mmol/L (137-145); Total Bilirubin 0.2 mg/dL (0.2-1.3); Total Protein 5.9 g/dL (6.3-8.2)
--- NOTE | 2021-12-10 03:29 | XR ---
EXAM: XR Chest, 1 View CLINICAL HISTORY: ITS.REASON XR Reason: copd TECHNIQUE: Frontal view of the chest. COMPARISON: Comparison made to prior chest x-ray from November 16, 2021. FINDINGS: Lungs: Mild to moderate peribronchial thickening of the central bronchi. No consolidation. Pleural space: Unremarkable. No pneumothorax. Heart: Unremarkable. No cardiomegaly. Mediastinum: Unremarkable. Bones/joints: Unremarkable. IMPRESSION: Findings concerning for bronchitis, which may be of infectious or inflammatory etiologies. No pulmonary consolidation.
[2021-12-10 03:47] LABS: Partial Thromboplastin Time 19.8 sec (22.0-30.0)
[2021-12-10] MEDS: ALBUTEROL NEBULIZED 2.5 MG/3 ML INHALATION SCH ×3 (06:54→15:46)
[2021-12-10 08:40] LABS: Appearance,Urine Clear (Clear); Bacteria,Urine Rare /hpf; Bilirubin,Urine Negative (Negative); Blood,Urine Negative (Negative); Color,Urine Yellow; Glucose,Urine (UA) 2+ (Negative); Ketones,Urine Negative (Negative); Leukocyte Esterase,Urine Small (Negative); Mucus,Urine Rare /hpf; Nitrite,Urine Negative (Negative); Protein,Urine Negative (Negative); RBC,Urine 1 /hpf (0-5); Specific Gravity,Urine 1.012 (1.001-1.035); Squamous Epithelial Cell,Urine 1 /hpf (0-4); Urobilinogen,Urine <2.0 mg/dL (<2.0); WBC,Urine 6 /hpf (0-5)
--- NOTE | 2021-12-10 09:59 | P.CNPUL ---
History of Present Illness Consult date: 12/10/21 Requesting physician: Chava Limon Reason for consult: dyspnea, COPD Chief complaint: Shortness of breath History of present illness: This is a very pleasant 76-year-old female patient with past medical history of advanced COPD, on home oxygen, normally wears 4 L of oxygen, baseline FEV1 of 28% of predicted, stage IV COPD, long history of chronic and ongoing smoking, hypertension, osteoarthritis, hypothyroidism, anxiety. She's had multiple admissions for COPD exacerbations and was recently discharged on 11/17/2021. She presented again to the emergency room early this a.m. with complaints of increasing shortness of breath. His x-ray revealed mild to moderate peribronchial thickening of central rhonchi. No consolidation. No pneumothorax. Suspect bronchitis. She is seen today in consultation in the emergency department. She is currently sitting up on a stretcher. Awake and alert in no acute distress. She is maintaining good O2 saturations in the 90s on 3 L/m per nasal cannula. No IV fluids running. White count 8.8. Hemoglobin 11.5. Platelet count 246,000. INR 0.8. Sodium 127. Potassium 5.2. BUN 23. Creatinine 0.50. Glucose 172. Currently virus by PCR not detected. Influenza screen negative. RSV screen negative. She's been given IV Solu-Medrol, DuoNeb inhalations. Normal saline at 100 ML's per hour. Review of Systems REVIEW OF SYSTEMS: CONSTITUTIONAL: Denies any recent significant weight loss or weight gain. EYES: Denies change in vision. EARS, NOSE, MOUTH, THROAT: Denies headaches, denies sore throat. CARDIOVASCULAR: Denies chest pain, palpitations or syncopal episodes. RESPIRATORY: Positive for shortness of breath, cough, congestion no hemoptysis. GASTROINTESTINAL: Denies change in appetite, denies abdominal pain GENITOURINARY: Denies hematuria, denies infections. MUSKULOSKELETAL: Denies pain, denies swelling. INTEGUMENTARY: Denies rash, denies eczema. NEUROLOGICAL: Denies recent memory loss, no recent seizure activity. PSYCHIATRIC: Denies anxiety, denies depression. HEMATOLOGIC/LYMPHATIC: Denies anemia, denies enlarged lymph nodes. Past Medical History Past Medical History: COPD, Diabetes Mellitus, Hyperlipidemia, Hypertension, Osteoarthritis (OA), Respiratory Disorder, Thyroid Disorder, Vascular Disorder Additional Past Medical History / Comment(s): Chronic advanced COPD, chronic hypoxic hypercarbic respiratory failure, home oxygen at 4L/[place] ATC, purulent tracheobronchitis, NIDDM, hyponatremia, hyperkalemia, severe constipation 2010, hypothyroidism, skeletal chest wall pain, anemia, PVD/PAD, past leg and foot wounds, past L distal radius fracture, gout, protein calorie malnutrition, UTI with sepsis, urinary retention with IDC since removed, confused at times per spouse and ambulates alittle History of Any Multi-Drug Resistant Organisms: None Reported Past Surgical History: Heart Catheterization, Hysterectomy, Tubal Ligation Additional Past Surgical History / Comment(s): 2011 cardiac cath, 2013 cardiac angiogram, colonoscopy/benign polypectomy, anal fistula repair, bilateral cataract removals/lens implants. Past Anesthesia/Blood Transfusion Reactions: Postoperative Nausea & Vomiting (PONV) Additional Past Anesthesia/Blood Transfusion Reaction / Comment(s): nausea one time Past Psychological History: Anxiety Smoking Status: Current every day smoker Past Alcohol Use History: None Reported Past Drug Use History: None Reported - Past Family History Mother History Unknown: Yes Family Medical History: Cancer, Thyroid Disorder Additional Family Medical History / Comment(s): Liver Cancer Father History Unknown: Yes Family Medical History: Cancer Medications and Allergies Home Medications Medication Instructions Recorded Confirmed Type Levothyroxine Sodium [Synthroid] 150 mcg PO DAILY #30 tablet 12/05/18 12/10/21 Rx Loratadine [Claritin] 10 mg PO DAILY 10/23/20 12/10/21 History Metoprolol Tartrate [Lopressor] 25 mg PO BID #60 tab 04/03/21 12/10/21 Rx Budesonide [Pulmicort] 1 mg INHALATION RT-BID ml 05/06/21 12/10/21 Rx Ammonium Lactate Lotion 1 applic TOPICAL BID 06/29/21 12/10/21 History [Lac-Hydrin 12% Lotion] Folic Acid 1 mg PO DAILY 06/29/21 12/10/21 History Pantoprazole [Protonix] 40 mg PO DAILY 06/29/21 12/10/21 History Tamsulosin [Flomax] 0.4 mg PO DAILY 06/29/21 12/10/21 History Atorvastatin [Lipitor] 20 mg PO HS 09/16/21 12/10/21 History Cholecalciferol [Vitamin D3 (25 50 mcg PO DAILY 09/16/21 12/10/21 History Mcg = 1000 Iu)] Ferrous Sulfate [Iron (65 MG 325 mg PO DAILY 09/16/21 12/10/21 History Elemental)] Formoterol Fumarate [Perforomist] 20 mcg INHALATION RT-BID #1 each 09/22/21 12/10/21 Rx amLODIPine [Norvasc] 10 mg PO DAILY #30 tab 09/22/21 12/10/21 Rx Albuterol Sulfate [Ventolin HFA] 2 puff INHALATION RT-Q4H PRN 11/17/21 12/10/21 History Budesonide/Formoterol Fumarate 2 puff INHALATION RT-BID 11/17/21 12/10/21 History [Symbicort 160-4.5 Mcg Inhaler] Furosemide [Lasix] 20 mg PO DAILY 11/17/21 12/10/21 History Hydrocortisone [Cortef] 10 mg PO BID 11/17/21 12/10/21 History INSULIN ASPART (NovoLOG) [NovoLOG See Protocol SQ ACHS 11/17/21 12/10/21 History (formulary)] Ipratropium-Albuterol Nebulize 3 ml INHALATION RT-Q6H PRN 11/17/21 12/10/21 History [Duoneb 0.5 mg-3 mg/3 ml Soln] Multivitamins, Thera [Multivitamin 1 tab PO DAILY 11/17/21 12/10/21 History (formulary)] Vitamin B Complex 1 cap PO DAILY 11/17/21 12/10/21 History glipiZIDE [Glucotrol] 5 mg PO BID 11/17/21 12/10/21 History Aspirin 81 mg PO DAILY 30 Days #30 tab 11/19/21 12/10/21 Rx Allergies Allergy/AdvReac Type Severity Reaction Status Date / Time bacitracin Allergy Rash/Hives Verified 12/10/21 07:48 [From Neosporin ([id number])] neomycin Allergy Rash/Hives Verified 12/10/21 07:48 [From Neosporin ([id number])] Penicillins Allergy Rash/Hives Verified 12/10/21 07:48 polymyxin B Allergy Rash/Hives Verified 12/10/21 07:48 [From Neosporin ([id number])] trimethoprim [From Polytrim] Allergy Rash/Hives Verified 12/10/21 07:48 levofloxacin [From Levaquin] AdvReac WEAKNESS Verified 12/10/21 07:48 metformin AdvReac Diarrhea Verified 12/10/21 07:48 ELDA/POLY/DEX AdvReac Rash/Hives Uncoded 11/17/21 11:30 Physical Exam Vitals: Vital Signs Temp Pulse Resp BP Pulse Ox 12/10/21 07:10 92 12/10/21 06:55 96 98 12/10/21 03:29 89 12/10/21 03:21 87 12/10/21 03:20 87 12/10/21 03:10 88 12/10/21 02:07 97.5 F L 92 141/72 92 L 12/10/21 02:00 100 Intake and Output 12/09/21 12/10/21 12/10/21 22:59 06:59 14:59 Other: Weight 45.359 kg GENERAL EXAM: Alert, pleasant frail 76-year-old female, on 3 L nasal cannula, comfortable in no apparent distress. HEAD: Normocephalic. EYES: Normal reaction of pupils, equal size. NOSE: Clear with pink turbinates. THROAT: No erythema or exudates. NECK: No masses, no JVD. CHEST: No chest wall deformity. LUNGS: Equal air entry with faint bilateral end expiratory wheeze, diminished. CVS: S1 and S2 normal with no audible murmur, regular rhythm. ABDOMEN: No hepatosplenomegaly, normal bowel sounds, no guarding or rigidity. SPINE: No scoliosis or deformity SKIN: No rashes, arms have areas of ecchymosis. CENTRAL NERVOUS SYSTEM: No focal deficits, tone is normal in all 4 extremities. EXTREMITIES: There is no peripheral edema. No clubbing, no cyanosis. Peripheral pulses are intact. Results - Laboratory Findings CBC and BMP: 12/10/21 02:26 12/10/21 02:26 PT/INR, D-dimer PT 9.3 sec (9.0-12.0) 12/10/21 02:26 INR 0.8 (<1.2) 12/10/21 02:26 Abnormal lab findings: Abnormal Labs 12/10/21 12/10/21 12/10/21 02:26 02:26 02:26 Lymphocytes # 0.4 L APTT 19.8 L Sodium 127 L Potassium 5.2 H Chloride 93 L Carbon Dioxide 33 H BUN 23 H Creatinine 0.50 L Glucose 172 H Total Protein 5.9 L Albumin 3.3 L Urine Glucose (UA) Ur Leukocyte Esterase Urine WBC Urine Bacteria Urine Mucus 12/10/21 07:49 Lymphocytes # APTT Sodium Potassium Chloride Carbon Dioxide BUN Creatinine Glucose Total Protein Albumin Urine Glucose (UA) 2+ H Ur Leukocyte Esterase Small H Urine WBC 6 H Urine Bacteria Rare H Urine Mucus Rare H - Diagnostic Findings Chest x-ray: image reviewed Assessment and Plan Assessment: 1 Acute exacerbation of chronic obstructive pulmonary disease, complicated by mild bronchitis 2 Acute on chronic hypoxemic respiratory failure secondary to above 3 Advanced and end-stage COPD with chronic hypoxemic and hypercapnic respiratory failure related to advanced COPD, stage IV, with baseline FEV1 of 28% of predicted, oxygen at 4 L of O2 by nasal cannula. 4 Chronic and ongoing tobacco dependence 5 Hypertension 6 Osteoarthritis 7 Hypothyroidism 8 Anxiety 9 Frequent falls 10 History of fracture in the left upper extremity 11 Multiple areas of ecchymosis largest in the left upper extremity Plan: The patient was seen and evaluated Chest x-ray, medications and labs reviewed She is feeling better and nearly back to her baseline She could be discharged home on a prednisone taper starting at 40 mg daily for 4 days Continue her home pulmonary medications and oxygen Follow up with Dr. Sears in the office in a week She is normally a DO NOT RESUSCITATE/DO NOT INTUBATE CODE STATUS She actually may be a hospice candidate I have personally seen and examined the patient, performed the documentation and the assessment and plan as written. Number of minutes spent on the visit: 20.
[2021-12-10] MEDS ORDERED: predniSONE 20 MG TAB PO SCH (10:00)
--- NOTE | 2021-12-10 10:10 | P.HPIM ---
History of Present Illness This is a pleasant 76 years old female with past medical history of COPD, Diabetes Mellitus, Hyperlipidemia, Hypertension, Osteoarthritis hypothyroidism ,chronic hypoxic hypercarbic respiratory failure, home oxygen at 4L/[place] ATC, pu rulent tracheobronchitis, hyponatremia, hyperkalemia, severe constipation 2010, PVD/PAD, past leg and foot wounds, urinary retention with IDC since removed, Presents because of dyspnea. Her dyspnea was progressively worse over the last 3 days. Associated with cough and some yellow phlegm. Patient also looks very weak and fragile. She denies chest pain. No abdominal pain. No nausea vomiting. No change in urine or bowel habits. No fever. She is also complaining of from some left eye pain and discomfort for about a week. No significant blurred vision change. She is without hemodynamically stable at baseline of CAD to per minute of oxygen via nasal cannula And liver enzymes are unremarkable. Sodium is 127, patient has history of chronic hyponatremia. Potassium 5.2, creatinine normal 0.5. Troponin is less than 0.012. ProBNP 309. Chest x-ray: Findings concerning for bronchitis which could be infectious or inflammatory. Also there is evidence of hyperinflated chest. EKG showing normal sinus rhythm at [address] changes, T-wave inversion in the lateral blades. Review of Systems CONSTITUTIONAL: No fever, no malaise, no fatigue. HEENT: No recent visual problems or hearing problems. Denied any sore throat. CARDIOVASCULAR: No orthopnea, PND, no palpitations, no syncope. PULMONARY: No shortness of breath, no cough, no hemoptysis. GASTROINTESTINAL: No diarrhea, no nausea, no vomiting, no abdominal pain. Normoactive bowel sounds. NEUROLOGICAL: No headaches, no weakness, no numbness. HEMATOLOGICAL: Denies any bleeding or petechiae. GENITOURINARY: Denies any burning micturition, frequency, or urgency. MUSCULOSKELETAL/RHEUMATOLOGICAL: Denies any joint pain, swelling, or any muscle pain. ENDOCRINE: Denies any polyuria or polydipsia. Past Medical History Past Medical History: COPD, Diabetes Mellitus, Hyperlipidemia, Hypertension, Osteoarthritis (OA), Respiratory Disorder, Thyroid Disorder, Vascular Disorder Additional Past Medical History / Comment(s): Chronic advanced COPD, chronic hypoxic hypercarbic respiratory failure, home oxygen at 4L/NC ATC, purulent tracheobronchitis, NIDDM, hyponatremia, hyperkalemia, severe constipation 2010, hypothyroidism, skeletal chest wall pain, anemia, PVD/PAD, past leg and foot wounds, past L distal radius fracture, gout, protein calorie malnutrition, UTI with sepsis, urinary retention with IDC since removed, confused at times per spouse and ambulates alittle History of Any Multi-Drug Resistant Organisms: None Reported Past Surgical History: Heart Catheterization, Hysterectomy, Tubal Ligation Additional Past Surgical History / Comment(s): 2011 cardiac cath, 2013 cardiac angiogram, colonoscopy/benign polypectomy, anal fistula repair, bilateral cataract removals/lens implants. Past Anesthesia/Blood Transfusion Reactions: Postoperative Nausea & Vomiting (PONV) Additional Past Anesthesia/Blood Transfusion Reaction / Comment(s): nausea one time Past Psychological History: Anxiety Smoking Status: Current every day smoker Past Alcohol Use History: None Reported Past Drug Use History: None Reported - Past Family History Mother History Unknown: Yes Family Medical History: Cancer, Thyroid Disorder Additional Family Medical History / Comment(s): Liver Cancer Father History Unknown: Yes Family Medical History: Cancer Medications and Allergies Home Medications Medication Instructions Recorded Confirmed Type Levothyroxine Sodium [Synthroid] 150 mcg PO DAILY #30 tablet 12/05/18 12/10/21 Rx Loratadine [Claritin] 10 mg PO DAILY 10/23/20 12/10/21 History Metoprolol Tartrate [Lopressor] 25 mg PO BID #60 tab 04/03/21 12/10/21 Rx Budesonide [Pulmicort] 1 mg INHALATION RT-BID ml 05/06/21 12/10/21 Rx Ammonium Lactate Lotion 1 applic TOPICAL BID 06/29/21 12/10/21 History [Lac-Hydrin 12% Lotion] Folic Acid 1 mg PO DAILY 06/29/21 12/10/21 History Pantoprazole [Protonix] 40 mg PO DAILY 06/29/21 12/10/21 History Tamsulosin [Flomax] 0.4 mg PO DAILY 06/29/21 12/10/21 History Atorvastatin [Lipitor] 20 mg PO HS 09/16/21 12/10/21 History Cholecalciferol [Vitamin D3 (25 50 mcg PO DAILY 09/16/21 12/10/21 History Mcg = 1000 Iu)] Ferrous Sulfate [Iron (65 MG 325 mg PO DAILY 09/16/21 12/10/21 History Elemental)] Formoterol Fumarate [Perforomist] 20 mcg INHALATION RT-BID #1 each 09/22/21 12/10/21 Rx amLODIPine [Norvasc] 10 mg PO DAILY #30 tab 09/22/21 12/10/21 Rx Albuterol Sulfate [Ventolin HFA] 2 puff INHALATION RT-Q4H PRN 11/17/21 12/10/21 History Budesonide/Formoterol Fumarate 2 puff INHALATION RT-BID 11/17/21 12/10/21 H istory [Symbicort 160-4.5 Mcg Inhaler] Furosemide [Lasix] 20 mg PO DAILY 11/17/21 12/10/21 History Hydrocortisone [Cortef] 10 mg PO BID 11/17/21 12/10/21 History INSULIN ASPART (NovoLOG) [NovoLOG See Protocol SQ ACHS 11/17/21 12/10/21 History (formulary)] Ipratropium-Albuterol Nebulize 3 ml INHALATION RT-Q6H PRN 11/17/21 12/10/21 History [Duoneb 0.5 mg-3 mg/3 ml Soln] Multivitamins, Thera [Multivitamin 1 tab PO DAILY 11/17/21 12/10/21 History (formulary)] Vitamin B Complex 1 cap PO DAILY 11/17/21 12/10/21 History glipiZIDE [Glucotrol] 5 mg PO BID 11/17/21 12/10/21 History Aspirin 81 mg PO DAILY 30 Days #30 tab 11/19/21 12/10/21 Rx Allergies Allergy/AdvReac Type Severity Reaction Status Date / Time bacitracin Allergy Rash/Hives Verified 12/10/21 07:48 [From Neosporin ([id number])] neomycin Allergy Rash/Hives Verified 12/10/21 07:48 [From Neosporin ([id number])] Penicillins Allergy Rash/Hives Verified 12/10/21 07:48 polymyxin B Allergy Rash/Hives Verified 12/10/21 07:48 [From Neosporin ([id number])] trimethoprim [From Polytrim] Allergy Rash/Hives Verified 12/10/21 07:48 levofloxacin [From Levaquin] AdvReac WEAKNESS Verified 12/10/21 07:48 metformin AdvReac Diarrhea Verified 12/10/21 07:48 ELDA/POLY/DEX AdvReac Rash/Hives Uncoded 11/17/21 11:30 Physical Exam Vitals: Vital Signs Temp Pulse Resp BP Pulse Ox 12/10/21 03:29 89 12/10/21 03:21 87 12/10/21 03:20 87 12/10/21 03:10 88 12/10/21 02:07 97.5 F L 92 22 141/72 92 L 12/10/21 02:00 100 Intake and Output 12/09/21 12/09/21 12/10/21 14:59 22:59 06:59 Other: Weight 45.359 kg GENERAL: The patient is alert and oriented x3, not in any acute distress. Well developed, well nourished. -HEENT: Pupils are round and equally reacting to light. EOMI. No scleral icterus. No conjunctival pallor. Normocephalic, atraumatic. No pharyngeal erythema. No thyromegaly. Left eye conjunctivitis, and milder right conjunctivitis CARDIOVASCULAR: S1 and S2 present. No murmurs, rubs, or gallops. -PULMONARY: Chest is clear to auscultation, no crackles. Mild bilateral expiratory wheezing ABDOMEN: Soft, nontender, nondistended, normoactive bowel sounds. No palpable organomegaly. MUSCULOSKELETAL: No joint swelling or deformity. EXTREMITIES: No cyanosis, clubbing, or pedal edema. NEUROLOGICAL: Gross neurological examination did not reveal any focal deficits. SKIN: No rashes. No petechiae Results CBC & Chem 7: 12/10/21 02:26 12/10/21 02:26 Labs: Abnormal Lab Results - Last 24 Hours (Table) 12/10/21 12/10/21 12/10/21 Range/Units 02:26 02:26 02:26 Lymphocytes # 0.4 L (1.0-4.8) k/uL APTT 19.8 L (22.0-30.0) sec Sodium 127 L (137-145) mmol/L Potassium 5.2 H (3.5-5.1) mmol/L Chloride 93 L (98-107) mmol/L Carbon Dioxide 33 H (22-30) mmol/L BUN 23 H (7-17) mg/dL Creatinine 0.50 L (0.52-1.04) mg/dL Glucose 172 H (74-99) mg/dL Total Protein 5.9 L (6.3-8.2) g/dL Albumin 3.3 L (3.5-5.0) g/dL Assessment and Plan Assessment: Acute COPD exacerbation Chronic hypoxic respiratory failure left eye conjunctivitis Nicotine dependence Hyponatremia, chronic Diabetes mellitus Hypertension Hyperlipidemia Hypothyroidism History of osteoarthritis Plan: This is a pleasant 76 years old female who presents with acute COPD exacerbation Continue with steroids and bronchodilator Pulmonary consult antibiotic eye drops Labs and medication were reviewed.. Continue same treatment. Continue with symptomatic treatment. Resume home medication. Monitor lytes and vitals. DVT and GI prophylaxis. Further recommendations depends on the clinical course of the patient DVT prophylaxis: Subcutaneous heparin GI Prophylaxis: Pepcid Prognosis is guarded
[2021-12-10] MEDS ORDERED: ERYTHROMYCIN 5 MG/GM OPHTH OINT 3.5 GM TUBE BOTH EYES SCH (11:00)
[2021-12-10 12:25] VITALS: RESP 20
[2021-12-10 22:47] VITALS: BP 139/75; PULSE 98; TEMP 97.8
== END 2021-12-10 18:44 | disposition home health service (06) | DRG 190 ==
LOC: EC 01:56 → 4SSUR 01:58
PROVIDERS: ADMIT Hospitalist; ATTEND Hospitalist
DX: J44.1 Chronic obstructive pulmonary disease with (acute) exacerbation (principal); J96.21 Acute and chronic respiratory failure with hypoxia; E87.1 Hypo-osmolality and hyponatremia; J96.12 Chronic respiratory failure with hypercapnia; E46 Unspecified protein-calorie malnutrition; Z68.1 Body mass index [BMI] 19.9 or less, adult; E03.9 Hypothyroidism, unspecified; E78.5 Hyperlipidemia, unspecified; F41.9 Anxiety disorder, unspecified; I10 Essential (primary) hypertension; F17.200 Nicotine dependence, unspecified, uncomplicated; R29.6 Repeated falls; H10.9 Unspecified conjunctivitis; Z20.822 Contact with and (suspected) exposure to COVID-19; M19.90 Unspecified osteoarthritis, unspecified site; E11.9 Type 2 diabetes mellitus without complications; Z96.1 Presence of intraocular lens; M10.9 Gout, unspecified; Z99.81 Dependence on supplemental oxygen; Z79.51 Long term (current) use of inhaled steroids; Z79.82 Long term (current) use of aspirin; Z79.84 Long term (current) use of oral hypoglycemic drugs; Z79.890 Hormone replacement therapy; Z79.899 Other long term (current) drug therapy; Z98.42 Cataract extraction status, left eye; Z98.41 Cataract extraction status, right eye; Z90.710 Acquired absence of both cervix and uterus; Z98.51 Tubal ligation status; Z86.19 Personal history of other infectious and parasitic diseases; Z87.440 Personal history of urinary (tract) infections; Z80.0 Family history of malignant neoplasm of digestive organs
CPT/HCPCS: 36415; 71045; 80053; 81001; 83605; 83735; 83880; 84484; 85025; 85610; 85730; 87502; 87634; 87635; 93005; 94640; 96374; 99285

== ENCOUNTER 2021-12-16 15:42 | Inpatient (IN) | payer MEDICARE, BC ==
[2021-12-16] MEDS ORDERED: SODIUM CHLORIDE 0.9% 500 ML 500 ML IV STA (15:56)
--- NOTE | 2021-12-16 15:58 | ED ---
General Adult HPI - General Stated complaint: SHAYY Time Seen by Provider: 12/16/21 15:50 - History of Present Illness Initial comments: Amada Castellanos is a 76yo F well known to our hospital for frequent episodes of COPD exacerbation, patient was admitted last week and subsequently discharged home where she is cared for by family. Per EMS they were contacted today by visiting physicians after a well check revealed the patient to again be in a COPD exacerbation despite over using her rescue inhaler. They expressed concern to EMS that the patient was not being appropriately cared for at home, not getting medications appropriately and was no longer a candidate for home care. - Related Data Home Medications Medication Instructions Recorded Confirmed Loratadine [Claritin] 10 mg PO DAILY 10/23/20 12/16/21 Ammonium Lactate Lotion 1 applic TOPICAL BID 06/29/21 12/16/21 [Lac-Hydrin 12% Lotion] Folic Acid 1 mg PO DAILY 06/29/21 12/16/21 Pantoprazole [Protonix] 40 mg PO DAILY 06/29/21 12/16/21 Tamsulosin [Flomax] 0.4 mg PO DAILY 06/29/21 12/16/21 Atorvastatin [Lipitor] 20 mg PO HS 09/16/21 12/16/21 Cholecalciferol [Vitamin D3 (25 50 mcg PO DAILY 09/16/21 12/16/21 Mcg = 1000 Iu)] Ferrous Sulfate [Iron (65 MG 325 mg PO DAILY 09/16/21 12/16/21 Elemental)] Furosemide [Lasix] 20 mg PO DAILY 11/17/21 12/16/21 Hydrocortisone [Cortef] 10 mg PO BID 11/17/21 12/16/21 INSULIN ASPART (NovoLOG) [NovoLOG See Protocol SQ ACHS 11/17/21 12/16/21 (formulary)] Ipratropium-Albuterol Nebulize 3 ml INHALATION RT-Q6H PRN 11/17/21 12/16/21 [Duoneb 0.5 mg-3 mg/3 ml Soln] Multivitamins, Thera [Multivitamin 1 tab PO DAILY 11/17/21 12/16/21 (formulary)] Vitamin B Complex 1 cap PO DAILY 11/17/21 12/16/21 glipiZIDE [Glucotrol] 5 mg PO BID 11/17/21 12/16/21 predniSONE See Taper PO DIRECTED 12/16/21 12/16/21 Previous Rx's Medication Instructions Recorded Levothyroxine Sodium [Synthroid] 150 mcg PO DAILY #30 tablet 12/05/18 Metoprolol Tartrate [Lopressor] 25 mg PO BID #60 tab 04/03/21 Budesonide [Pulmicort] 1 mg INHALATION RT-BID ml 05/06/21 Formoterol Fumarate [Perforomist] 20 mcg INHALATION RT-BID #1 each 09/22/21 amLODIPine [Norvasc] 10 mg PO DAILY #30 tab 09/22/21 Aspirin 81 mg PO DAILY 30 Days #30 tab 11/19/21 Albuterol Sulfate [Ventolin HFA] 2 puff INHALATION RT-Q4H PRN #1 12/10/21 each Budesonide-Formot 160-4.5 Mcg 2 puff INHALATION BID #1 each 12/10/21 [Symbicort 160-4.5 Mcg Inhaler] Erythromycin Ophth Oint [Romycin 1 applic BOTH EYES Q8HR 7 Days #1 12/10/21 Ophth Oint] tub Allergies Allergy/AdvReac Type Severity Reaction Status Date / Time bacitracin Allergy Rash/Hives Verified 12/16/21 15:58 [From Neosporin ([id number])] neomycin Allergy Rash/Hives Verified 12/16/21 15:58 [From Neosporin ([id number])] Penicillins Allergy Rash/Hives Verified 12/16/21 15:58 polymyxin B Allergy Rash/Hives Verified 12/16/21 15:58 [From Neosporin ([id number])] trimethoprim [From Polytrim] Allergy Rash/Hives Verified 12/16/21 15:58 levofloxacin [From Levaquin] AdvReac WEAKNESS Verified 12/16/21 15:58 metformin AdvReac Diarrhea Verified 12/16/21 15:58 ELDA/POLY/DEX AdvReac Rash/Hives Uncoded 12/16/21 15:58 Review of Systems ROS Statement: Those systems with pertinent positive or pertinent negative responses have been documented in the HPI. ROS Other: All systems not noted in ROS Statement are negative. Past Medical History Past Medical History: COPD, Diabetes Mellitus, Hyperlipidemia, Hypertension, Osteoarthritis (OA), Respiratory Disorder, Thyroid Disorder, Vascular Disorder Additional Past Medical History / Comment(s): Chronic advanced COPD, chronic hypoxic hypercarbic respiratory failure, home oxygen at 4L/NC ATC, purulent tracheobronchitis, NIDDM, hyponatremia, hyperkalemia, severe constipation 2010, hypothyroidism, skeletal chest wall pain, anemia, PVD/PAD, past leg and foot wounds, past L distal radius fracture, gout, protein calorie malnutrition, UTI with sepsis, urinary retention with IDC since removed, confused at times per spouse and ambulates alittle History of Any Multi-Drug Resistant Organisms: None Reported Past Surgical History: Heart Catheterization, Hysterectomy, Tubal Ligation Additional Past Surgical History / Comment(s): 2011 cardiac cath, 2013 cardiac angiogram, colonoscopy/benign polypectomy, anal fistula repair, bilateral cataract removals/lens implants. Past Anesthesia/Blood Transfusion Reactions: Postoperative Nausea & Vomiting (PONV) Additional Past Anesthesia/Blood Transfusion Reaction / Comment(s): nausea one time Past Psychological History: Anxiety Smoking Status: Current every day smoker Past Alcohol Use History: None Reported Past Drug Use History: None Reported - Past Family History Mother History Unknown: Yes Family Medical History: Cancer, Thyroid Disorder Additional Family Medical History / Comment(s): Liver Cancer Father History Unknown: Yes Family Medical History: Cancer Course Vital Signs 12/16/21 15:46 Temperature 98.7 F Pulse Rate 102 H Respiratory 20 Rate Blood Pressure 116/68 O2 Sat by Pulse 99 Oximetry EKG Findings - EKG Comments: EKG Findings:: EKG was obtained due to shortness breath, EKG was obtained at 1550, rate is 101 rhythm is sinus tach, normal intervals, NC 138 QRS [address] elevations or depressions no evidence of ischemia or infarction. Medical Decision Making - Medical Decision Making Pt was seen and evaluated, history was obtained from patient, EMS and review of medical record Patient was wheezing, no acute distress, labs, duoneb, CXR ordered Labs with multiple abnormalities, hyponatremia, hyperglycemia Patient care discussed with Dr. Limon who accepts admission for need for intermediate manager placement, concern for elder/medical neglect - Lab Data Result diagrams: 12/16/21 15:59 12/16/21 15:59 Lab Results 12/16/21 12/16/21 12/16/21 Range/Units 15:59 15:59 15:59 WBC 11.6 H (3.8-10.6) k/uL RBC 4.18 (3.80-5.40) m/uL Hgb 12.1 (11.4-16.0) gm/dL Hct 40.4 (34.0-46.0) % MCV 96.7 (80.0-100.0) fL MCH 28.9 (25.0-35.0) pg MCHC 29.9 L (31.0-37.0) g/dL RDW 14.2 (11.5-15.5) % Plt Count 317 (150-450) k/uL MPV 7.2 Neutrophils % 94 % Lymphocytes % 1 % Monocytes % 4 % Eosinophils % 0 % Basophils % 0 % Neutrophils # 10.9 H (1.3-7.7) k/uL Lymphocytes # 0.1 L (1.0-4.8) k/uL Monocytes # 0.4 (0-1.0) k/uL Eosinophils # 0.0 (0-0.7) k/uL Basophils # 0.1 (0-0.2) k/uL Hypochromasia Marked PT 9.6 (9.0-12.0) sec INR 0.9 (<1.2) APTT 19.1 L (22.0-30.0) sec Sodium 128 L (137-145) mmol/L Potassium 4.9 (3.5-5.1) mmol/L Chloride 90 L (98-107) mmol/L Carbon Dioxide 39 H (22-30) mmol/L Anion Gap -1 mmol/L BUN 29 H (7-17) mg/dL Creatinine 0.63 (0.52-1.04) mg/dL Est GFR (CKD-EPI)AfAm >90 (>60 ml/min/1.73 sqM) Est GFR (CKD-EPI)NonAf 86 (>60 ml/min/1.73 sqM) Glucose 359 H (74-99) mg/dL Plasma Lactic Acid Lance (0.7-2.0) mmol/L Calcium 8.9 (8.4-10.2) mg/dL Magnesium 2.1 (1.6-2.3) mg/dL Total Bilirubin 0.2 (0.2-1.3) mg/dL AST 18 (14-36) U/L ALT 16 (4-34) U/L Alkaline Phosphatase 58 (38-126) U/L Troponin I (0.000-0.034) ng/mL NT-Pro-B Natriuret Pep pg/mL Total Protein 5.6 L (6.3-8.2) g/dL Albumin 3.3 L (3.5-5.0) g/dL Urine Color Urine Appearance (Clear) Urine pH (5.0-8.0) Ur Specific [place] (1.001-1.035) Urine Protein (Negative) Urine Glucose (UA) (Negative) Urine Ketones (Negative) Urine Blood (Negative) Urine Nitrite (Negative) Urine Bilirubin (Negative) Urine Urobilinogen (<2.0) mg/dL Ur Leukocyte Esterase (Negative) 12/16/21 12/16/21 12/16/21 Range/Units 15:59 15:59 15:59 WBC (3.8-10.6) k/uL RBC (3.80-5.40) m/uL Hgb (11.4-16.0) gm/dL Hct (34.0-46.0) % MCV (80.0-100.0) fL MCH (25.0-35.0) pg MCHC (31.0-37.0) g/dL RDW (11.5-15.5) % Plt Count (150-450) k/uL MPV Neutrophils % % Lymphocytes % % Monocytes % % Eosinophils % % Basophils % % Neutrophils # (1.3-7.7) k/uL Lymphocytes # (1.0-4.8) k/uL Monocytes # (0-1.0) k/uL Eosinophils # (0-0.7) k/uL Basophils # (0-0.2) k/uL Hypochromasia PT (9.0-12.0) sec INR (<1.2) APTT (22.0-30.0) sec Sodium (137-145) mmol/L Potassium (3.5-5.1) mmol/L Chloride (98-107) mmol/L Carbon Dioxide (22-30) mmol/L Anion Gap mmol/L BUN (7-17) mg/dL Creatinine (0.52-1.04) mg/dL Est GFR (CKD-EPI)AfAm (>60 ml/min/1.73 sqM) Est GFR (CKD-EPI)NonAf (>60 ml/min/1.73 sqM) Glucose (74-99) mg/dL Plasma Lactic Acid Lance 0.9 (0.7-2.0) mmol/L Calcium (8.4-10.2) mg/dL Magnesium (1.6-2.3) mg/dL Total Bilirubin (0.2-1.3) mg/dL AST (14-36) U/L ALT (4-34) U/L Alkaline Phosphatase (38-126) U/L Troponin I <0.012 (0.000-0.034) ng/mL NT-Pro-B Natriuret Pep 656 pg/mL Total Protein (6.3-8.2) g/dL Albumin (3.5-5.0) g/dL Urine Color Urine Appearance (Clear) Urine pH (5.0-8.0) Ur Specific [place] (1.001-1.035) Urine Protein (Negative) Urine Glucose (UA) (Negative) Urine Ketones (Negative) Urine Blood (Negative) Urine Nitrite (Negative) Urine Bilirubin (Negative) Urine Urobilinogen (<2.0) mg/dL Ur Leukocyte Esterase (Negative) 12/16/21 Range/Units 16:25 WBC (3.8-10.6) k/uL RBC (3.80-5.40) m/uL Hgb (11.4-16.0) gm/dL Hct (34.0-46.0) % MCV (80.0-100.0) fL MCH (25.0-35.0) pg MCHC (31.0-37.0) g/dL RDW (11.5-15.5) % Plt Count (150-450) k/uL MPV Neutrophils % % Lymphocytes % % Monocytes % % Eosinophils % % Basophils % % Neutrophils # (1.3-7.7) k/uL Lymphocytes # (1.0-4.8) k/uL Monocytes # (0-1.0) k/uL Eosinophils # (0-0.7) k/uL Basophils # (0-0.2) k/uL Hypochromasia PT (9.0-12.0) sec INR (<1.2) APTT (22.0-30.0) sec Sodium (137-145) mmol/L Potassium (3.5-5.1) mmol/L Chloride (98-107) mmol/L Carbon Dioxide (22-30) mmol/L Anion Gap mmol/L BUN (7-17) mg/dL Creatinine (0.52-1.04) mg/dL Est GFR (CKD-EPI)AfAm (>60 ml/min/1.73 sqM) Est GFR (CKD-EPI)NonAf (>60 ml/min/1.73 sqM) Glucose (74-99) mg/dL Plasma Lactic Acid Lance (0.7-2.0) mmol/L Calcium (8.4-10.2) mg/dL Magnesium (1.6-2.3) mg/dL Total Bilirubin (0.2-1.3) mg/dL AST (14-36) U/L ALT (4-34) U/L Alkaline Phosphatase (38-126) U/L Troponin I (0.000-0.034) ng/mL NT-Pro-B Natriuret Pep pg/mL Total Protein (6.3-8.2) g/dL Albumin (3.5-5.0) g/dL Urine Color Light Yellow Urine Appearance Clear (Clear) Urine pH 7.0 (5.0-8.0) Ur Specific [place] 1.011 (1.001-1.035) Urine Protein Negative (Negative) Urine Glucose (UA) 4+ H (Negative) Urine Ketones Negative (Negative) Urine Blood Negative (Negative) Urine Nitrite Negative (Negative) Urine Bilirubin Negative (Negative) Urine Urobilinogen <2.0 (<2.0) mg/dL Ur Leukocyte Esterase Negative (Negative) Disposition Clinical Impression: COPD (chronic obstructive pulmonary disease), Neglected elder, Hyponatremia, Hyperglycemia Disposition: ADMITTED IP TO THIS HOSP Is patient prescribed a controlled substance at d/c from ED?: No Referrals: Chris Sears MD [Primary Care Provider] - 1-2 days
[2021-12-16 16:25] LABS: Basophils # (A) 0.1 k/uL (0-0.2); Basophils % (A) 0 %; Eosinophils % (A) 0 %; HCT 40.4 % (34.0-46.0); HGB 12.1 gm/dL (11.4-16.0); Hypochromasia Marked; Lymphocytes # (A) 0.1 k/uL (1.0-4.8); Lymphocytes % (A) 1 %; MCH 28.9 pg (25.0-35.0); MCHC 29.9 g/dL (31.0-37.0); MCV 96.7 fL (80.0-100.0); Mean Platelet Volume 7.2; Monocytes # (A) 0.4 k/uL (0-1.0); Monocytes % (A) 4 %; Neutrophils # (A) 10.9 k/uL (1.3-7.7); Neutrophils % (A) 94 %; Platelet Count 317 k/uL (150-450); RBC 4.18 m/uL (3.80-5.40); RDW 14.2 % (11.5-15.5); WBC 11.6 k/uL (3.8-10.6)
[2021-12-16 16:30] LABS: Appearance,Urine Clear (Clear); Bilirubin,Urine Negative (Negative); Blood,Urine Negative (Negative); Color,Urine Light Yellow; Glucose,Urine (UA) 4+ (Negative); Ketones,Urine Negative (Negative); Leukocyte Esterase,Urine Negative (Negative); Nitrite,Urine Negative (Negative); Protein,Urine Negative (Negative); Specific Gravity,Urine 1.011 (1.001-1.035); Urobilinogen,Urine <2.0 mg/dL (<2.0)
[2021-12-16] MEDS ORDERED: methylPREDNISolone SOD SUCCIN 125 MG in SODIUM CHLORIDE 0.9% 100 ML IVPB STA (16:31)
[2021-12-16] MEDS ORDERED: IPRATROPIUM-ALBUTEROL 3 ML NEB INHALATION STA (16:31)
[2021-12-16 16:33] LABS: ALT 16 U/L (4-34); AST 18 U/L (14-36); African American GFR (CKD) >90 (>60 ml/min/1.73 sqM); Albumin 3.3 g/dL (3.5-5.0); Alkaline Phosphatase 58 U/L (38-126); Anion Gap -1 mmol/L; Blood Urea Nitrogen 29 mg/dL (7-17); Calcium 8.9 mg/dL (8.4-10.2); Carbon Dioxide 39 mmol/L (22-30); Chloride 90 mmol/L (98-107); Glucose 359 mg/dL (74-99); Magnesium 2.1 mg/dL (1.6-2.3); Non-African American GFR(CKD) 86 (>60 ml/min/1.73 sqM); Potassium 4.9 mmol/L (3.5-5.1); Sodium 128 mmol/L (137-145); Total Bilirubin 0.2 mg/dL (0.2-1.3); Total Protein 5.6 g/dL (6.3-8.2)
[2021-12-16] MEDS ORDERED: methylPREDNISolone SOD SUCCI 125 MG/2 ML VIAL IV STA (16:33)
[2021-12-16 16:44] LABS: INR 0.9 (<1.2); Prothrombin Time 9.6 sec (9.0-12.0)
[2021-12-16 16:47] LABS: Partial Thromboplastin Time 19.1 sec (22.0-30.0)
[2021-12-16] MEDS ORDERED: NALOXONE 0.4 MG/ML 1 ML VIAL IV PRN (16:55)
[2021-12-16] MEDS: SODIUM CHLORIDE 0.9% 1,000 ML IV SCH (17:04)
--- NOTE | 2021-12-16 17:17 | XR ---
EXAMINATION TYPE: XR chest 2V DATE OF EXAM: 12/16/2021 COMPARISON: X-ray dated 12/10/2021 HISTORY: Difficulty breathing TECHNIQUE: Frontal and lateral views of the chest are obtained. FINDINGS: Prominent interstitial lung markings, nonspecific and could be related to COPD changes. Recommend cli nical correlation and correlation with pulmonary function tests. Increased density in the lung apex bilaterally, underlying infiltration or chronic fibrosis can't be excluded. No sizable pleural effusion or obvious pneumothorax. Unchanged cardiomediastinal silhouette and aorti c atherosclerotic calcifications. Osteopenia. IMPRESSION: As above.
[2021-12-17] MEDS ORDERED: IPRATROPIUM-ALBUTEROL 3 ML NEB INHALATION PRN (00:01)
[2021-12-17] MEDS: SODIUM CHLORIDE 0.9% 1,000 ML IV SCH ×2 (05:59→20:43)
[2021-12-17] MEDS: SYMBICORT 160-4.5 MCG INHALER INHALATION SCH ×2 (08:09→19:02)
[2021-12-17] MEDS: IPRATROPIUM-ALBUTEROL 3 ML NEB INHALATION SCH ×4 (08:09→19:02)
[2021-12-17] MEDS: ERYTHROMYCIN 5 MG/GM OPHTH OINT 3.5 GM TUBE BOTH EYES SCH ×3 (08:40→23:52)
[2021-12-17] MEDS: MULTIVITAMINS, THERA 1 EACH TAB PO SCH (08:41)
[2021-12-17] MEDS: ASPIRIN 81 MG PO SCH (08:41)
[2021-12-17] MEDS: TAMSULOSIN 0.4 MG CAP.ER.24H PO SCH (08:41)
[2021-12-17] MEDS: FOLIC ACID 1 MG TAB PO SCH (08:41)
[2021-12-17] MEDS: LEVOTHYROXINE 75 MCG TAB PO SCH (08:41)
[2021-12-17] MEDS: PANTOPRAZOLE 40 MG TABLET PO SCH (08:41)
[2021-12-17] MEDS: FERROUS SULFATE 325 MG TAB PO SCH (08:41)
[2021-12-17] MEDS: SPIRONOLACTONE 25 MG TAB PO SCH (08:41)
[2021-12-17] MEDS: HYDROCORTISONE 10 MG TAB PO SCH ×2 (08:41→20:43)
[2021-12-17] MEDS: METOPROLOL TARTRATE 25 MG TAB PO SCH ×2 (08:41→20:43)
[2021-12-17] MEDS: CHOLECALCIFEROL 25 MCG (1000 IU) TABLET PO SCH (08:41)
[2021-12-17] MEDS: HEPARIN SODIUM,PORCINE/PF 5,000 UNIT/0.5 ML SYRINGE SQ SCH ×2 (08:41→20:43)
--- NOTE | 2021-12-17 08:54 | P.HPIM ---
History of Present Illness This is a pleasant 76 years old female with past medical history of COPD, Diabetes Mellitus, Hyperlipidemia, Hypertension, Osteoarthritis hypothyroidism ,chronic hypoxic hypercarbic respiratory failure, home oxygen at 4L/NC ATC, pur ulent tracheobronchitis, hyponatremia, hyperkalemia, severe constipation 2010, PVD/PAD, past leg and foot wounds, urinary retention with IDC since removed, Presents because of dyspnea. Her dyspnea was progressively worse , she was here in this hospital about one week ago, where she was evaluated by pulmonary service, improved back to baseline and cleared for discharge with strict instruction not to go back to smoking , however pt kept smoking a lot at home as per . Patient was lying in room 18 in the emergency room, confused, when I ask her about her name she mumbles only, she barely moves her chest and there is no good air entry. I called the Tenzin barnes at [phone] and I discussed the case with him, he said she was getting breathing difficulty but he could not tell for how many days, then he has a visiting nurse who recommended for the present her to the hospital. During this time she was still smoking even in her bed breathing situation prior to come to the hospital she was urging the to give her a cigarette "that's how bad it is" states. However the does not want any Heroic measures and when I talked to him about possible palliative care versus hospice he agreed and he wants me to consult hospice team for her Patient chronic heavy smoker, possible could not specify how much she smokes, no alcohol or illicit drugs Patient is afebrile and vitals are stable, she is saturating 99% on 3 L oxygen via nasal cannula WBC is 11.6. Trace of CBC is unremarkable, INR 0.9, Review of Systems N/a patient could not provide information Past Medical History Past Medical History: COPD, Diabetes Mellitus, Hyperlipidemia, Hypertension, Osteoarthritis (OA), Respiratory Disorder, Thyroid Disorder, Vascular Disorder Additional Past Medical History / Comment(s): Chronic advanced COPD, chronic hypoxic hypercarbic respiratory failure, home oxygen at 4L/NC ATC, purulent tracheobronchitis, NIDDM, hyponatremia, hyperkalemia, severe constipation 2010, hypothyroidism, skeletal chest wall pain, anemia, PVD/PAD, past leg and foot wounds, past L distal radius fracture, gout, protein calorie malnutrition, UTI with sepsis, urinary retention with IDC since removed, confused at times per spouse and ambulates alittle History of Any Multi-Drug Resistant Organisms: None Reported Past Surgical History: Heart Catheterization, Hysterectomy, Tubal Ligation Additional Past Surgical History / Comment(s): 2011 cardiac cath, 2013 cardiac angiogram, colonoscopy/benign polypectomy, anal fistula repair, bilateral cataract removals/lens implants. Past Anesthesia/Blood Transfusion Reactions: Postoperative Nausea & Vomiting (PONV) Additional Past Anesthesia/Blood Transfusion Reaction / Comment(s): nausea one time Past Psychological History: Anxiety Smoking Status: Current every day smoker Past Alcohol Use History: None Reported Past Drug Use History: None Reported - Past Family History Mother History Unknown: Yes Family Medical History: Cancer, Thyroid Disorder Additional Family Medical History / Comment(s): Liver Cancer Father History Unknown: Yes Family Medical History: Cancer Medications and Allergies Home Medications Medication Instructions Recorded Confirmed Type Levothyroxine Sodium [Synthroid] 150 mcg PO DAILY #30 tablet 12/05/18 12/16/21 Rx Loratadine [Claritin] 10 mg PO DAILY 10/23/20 12/16/21 History Metoprolol Tartrate [Lopressor] 25 mg PO BID #60 tab 04/03/21 12/16/21 Rx Budesonide [Pulmicort] 1 mg INHALATION RT-BID ml 05/06/21 12/16/21 Rx Ammonium Lactate Lotion 1 applic TOPICAL BID 06/29/21 12/16/21 History [Lac-Hydrin 12% Lotion] Folic Acid 1 mg PO DAILY 06/29/21 12/16/21 History Pantoprazole [Protonix] 40 mg PO DAILY 06/29/21 12/16/21 History Tamsulosin [Flomax] 0.4 mg PO DAILY 06/29/21 12/16/21 History Atorvastatin [Lipitor] 20 mg PO HS 09/16/21 12/16/21 History Cholecalciferol [Vitamin D3 (25 50 mcg PO DAILY 09/16/21 12/16/21 History Mcg = 1000 Iu)] Ferrous Sulfate [Iron (65 MG 325 mg PO DAILY 09/16/21 12/16/21 History Elemental)] Formoterol Fumarate [Perforomist] 20 mcg INHALATION RT-BID #1 each 09/22/21 12/16/21 Rx amLODIPine [Norvasc] 10 mg PO DAILY #30 tab 09/22/21 12/16/21 Rx Furosemide [Lasix] 20 mg PO DAILY 11/17/21 12/16/21 History Hydrocortisone [Cortef] 10 mg PO BID 11/17/21 12/16/21 History INSULIN ASPART (NovoLOG) [NovoLOG See Protocol SQ ACHS 11/17/21 12/16/21 History (formulary)] Ipratropium-Albuterol Nebulize 3 ml INHALATION RT-Q6H PRN 11/17/21 12/16/21 History [Duoneb 0.5 mg-3 mg/3 ml Soln] Multivitamins, Thera [Multivitamin 1 tab PO DAILY 11/17/21 12/16/21 History (formulary)] Vitamin B Complex 1 cap PO DAILY 11/17/21 12/16/21 History glipiZIDE [Glucotrol] 5 mg PO BID 11/17/21 12/16/21 History Aspirin 81 mg PO DAILY 30 Days #30 tab 11/19/21 12/16/21 Rx Albuterol Sulfate [Ventolin HFA] 2 puff INHALATION RT-Q4H PRN #1 12/10/21 12/16/21 Rx each Budesonide-Formot 160-4.5 Mcg 2 puff INHALATION BID #1 each 12/10/21 12/16/21 Rx [Symbicort 160-4.5 Mcg Inhaler] Erythromycin Ophth Oint [Romycin 1 applic BOTH EYES Q8HR 7 Days #1 12/10/21 12/16/21 Rx Ophth Oint] tub predniSONE See Taper PO DIRECTED 12/16/21 12/16/21 History Allergies Allergy/AdvReac Type Severity Reaction Status Date / Time bacitracin Allergy Rash/Hives Verified 12/16/21 15:58 [From Neosporin ([id number])] neomycin Allergy Rash/Hives Verified 12/16/21 15:58 [From Neosporin ([id number])] Penicillins Allergy Rash/Hives Verified 12/16/21 15:58 polymyxin B Allergy Rash/Hives Verified 12/16/21 15:58 [From Neosporin ([id number])] trimethoprim [From Polytrim] Allergy Rash/Hives Verified 12/16/21 15:58 levofloxacin [From Levaquin] AdvReac WEAKNESS Verified 12/16/21 15:58 metformin AdvReac Diarrhea Verified 12/16/21 15:58 ELDA/POLY/DEX AdvReac Rash/Hives Uncoded 12/16/21 15:58 Physical Exam Vitals: Vital Signs Temp Pulse Pulse Resp BP BP Pulse Ox 12/17/21 07:17 98.6 F 77 16 104/53 99 12/17/21 05:56 98.8 F 87 16 131/70 99 12/17/21 00:30 92 12/17/21 00:17 92 12/16/21 23:52 92 20 134/72 89 L 12/16/21 20:32 94 20 112/74 97 12/16/21 18:10 94 16 118/59 99 12/16/21 17:15 94 18 12/16/21 17:05 96 20 12/16/21 15:46 98.7 F 102 H 20 116/68 99 Intake and Output 12/16/21 12/17/21 12/17/21 22:59 06:59 14:59 Other: # Voids 1 Weight 45.359 kg GENERAL: The patient is confused, minimally responsive HEENT: Pupils are round and equally reacting to light. EOMI. No scleral icterus. No conjunctival pallor. Normocephalic, atraumatic. No pharyngeal erythema. No thyromegaly. CARDIOVASCULAR: S1 and S2 present. No murmurs, rubs, or gallops. -PULMONARY: Chest is clear to auscultation, Barely moving air in and out of her chest with limited air entry on both sides ABDOMEN: Soft, nontender, nondistended, normoactive bowel sounds. No palpable organomegaly. MUSCULOSKELETAL: No joint swelling or deformity. EXTREMITIES: No cyanosis, clubbing, or pedal edema. NEUROLOGICAL: Gross neurological examination did not reveal any focal deficits. SKIN: No rashes. no petechiae. Results CBC & Chem 7: 12/16/21 15:59 12/16/21 15:59 Labs: Abnormal Lab Results - Last 24 Hours (Table) 12/16/21 12/16/21 12/16/21 Range/Units 15:59 15:59 15:59 WBC 11.6 H (3.8-10.6) k/uL MCHC 29.9 L (31.0-37.0) g/dL Neutrophils # 10.9 H (1.3-7.7) k/uL Lymphocytes # 0.1 L (1.0-4.8) k/uL APTT 19.1 L (22.0-30.0) sec Sodium 128 L (137-145) mmol/L Chloride 90 L (98-107) mmol/L Carbon Dioxide 39 H (22-30) mmol/L BUN 29 H (7-17) mg/dL Glucose 359 H (74-99) mg/dL Total Protein 5.6 L (6.3-8.2) g/dL Albumin 3.3 L (3.5-5.0) g/dL Urine Glucose (UA) (Negative) 12/16/21 Range/Units 16:25 WBC (3.8-10.6) k/uL MCHC (31.0-37.0) g/dL Neutrophils # (1.3-7.7) k/uL Lymphocytes # (1.0-4.8) k/uL APTT (22.0-30.0) sec Sodium (137-145) mmol/L Chloride (98-107) mmol/L Carbon Dioxide (22-30) mmol/L BUN (7-17) mg/dL Glucose (74-99) mg/dL Total Protein (6.3-8.2) g/dL Albumin (3.5-5.0) g/dL Urine Glucose (UA) 4+ H (Negative) Assessment and Plan Assessment: Acute exacerbation of end-stage COPD Acute on chronic hypoxic respiratory failure Metabolic encephalopathy most likely secondary to above Nicotine dependence Hyponatremia Hyponatremia, chronic Diabetes mellitus Hypertension Hyperlipidemia Hypothyroidism History of osteoarthritis Plan: This is a pleasant 76 years old female who presents with acute COPD exacerbation Continue with steroids and bronchodilator Pulmonary consult As per he wanted to consult hospice care for her Continue with the glipizide and insulin sliding scale Labs and medication were reviewed.. Continue same treatment. Continue with symptomatic treatment. Resume home medication. Monitor lytes and vitals. DVT and GI prophylaxis. Further recommendations depends on the clinical course of the patient DVT prophylaxis: Subcutaneous heparin GI Prophylaxis: Ppi Prognosis is very poor Discussed with the respiratory therapist to place patient on BiPAP till fully evaluated by consulted team
[2021-12-17 08:58] LABS: Glucose,Whole Blood 171 mg/dL (70-110)
[2021-12-17] MEDS: methylPREDNISolone SOD SUCCI 125 MG/2 ML VIAL IV SCH ×4 (09:00→23:52)
[2021-12-17] MEDS: glipiZIDE 5 MG TAB PO SCH ×2 (09:00→21:01)
[2021-12-17 09:05] LABS: ABG Base Excess 11.1 mmol/L; ABG HCO3 39 mmol/L (21-25); ABG Oxygen Saturation 93.2 % (94-97); ABG PH 7.23 (7.35-7.45); ABG PO2 70 mmHg (83-108); ABG TCO2 42 mmol/L (19-24); Allen Test Performed? Yes
[2021-12-17 09:06] LABS: Basophils % (A) 0 %; Eosinophils % (A) 0 %; HCT 40.6 % (34.0-46.0); HGB 12.5 gm/dL (11.4-16.0); Hypochromasia Marked; Lymphocytes # (A) 0.4 k/uL (1.0-4.8); Lymphocytes % (A) 5 %; MCH 29.6 pg (25.0-35.0); MCHC 30.8 g/dL (31.0-37.0); MCV 95.9 fL (80.0-100.0); Mean Platelet Volume 7.3; Monocytes # (A) 0.5 k/uL (0-1.0); Monocytes % (A) 6 %; Neutrophils # (A) 7.9 k/uL (1.3-7.7); Neutrophils % (A) 86 %; Platelet Count 275 k/uL (150-450); RBC 4.23 m/uL (3.80-5.40); RDW 14.4 % (11.5-15.5); WBC 9.2 k/uL (3.8-10.6)
[2021-12-17 09:08] LABS: ABG PCO2 93 mmHg (35-45)
[2021-12-17 09:09] LABS: African American GFR (CKD) >90 (>60 ml/min/1.73 sqM); Anion Gap 1 mmol/L; Blood Urea Nitrogen 29 mg/dL (7-17); Calcium 8.8 mg/dL (8.4-10.2); Carbon Dioxide 33 mmol/L (22-30); Chloride 99 mmol/L (98-107); Glucose 170 mg/dL (74-99); Magnesium 2.2 mg/dL (1.6-2.3); Non-African American GFR(CKD) >90 (>60 ml/min/1.73 sqM); Potassium 4.9 mmol/L (3.5-5.1); Sodium 133 mmol/L (137-145)
[2021-12-17 12:35] LABS: Glucose,Whole Blood 84 mg/dL (70-110)
[2021-12-17] MEDS: INSULIN ASPART (NovoLOG) 100 UNIT/ML VIAL SQ SCH ×3 (12:37→20:43)
--- NOTE | 2021-12-17 15:30 | P.CNPUL ---
History of Present Illness Consult date: 12/17/21 Requesting physician: Chava Limon Reason for consult: dyspnea, COPD, hypoxemia Chief complaint: Acute exacerbation chronic obstructive pulmonary disease, medical debility History of present illness: This is a very pleasant 76-year-old female patient with past medical history of advanced COPD, on home oxygen, normally wears 4 L of oxygen, baseline FEV1 of 28% of predicted, stage IV COPD, long history of chronic and ongoing smoking, hypertension, osteoarthritis, hypothyroidism, anxiety. She's had multiple admissions for COPD exacerbations and was recently discharged again on 12/10/2021. She presented again to the emergency room again yesterday with complaints of increasing shortness of breath. She been not taking her medications at home. She was unable to take care of herself in the home setting. Chest x-ray revealed prominent interstitial lung markings, nonspecific and could be related to COPD changes. No acute pulmonary process. She is seen today in consultation in the emergency department. She is currently on BiPAP 10/5 and 30% FiO2. More awake and alert. Arterial blood gases revealed a PaO2 of 70, pCO2 of 93 and a pH of 7.23 on 32% FiO2. White count 9.3. Hemoglobin 12.5. Platelets 275. Sodium 133. Potassium 4.9. Bicarbonate 33. BUN 29. Creatinine 0.41. Glucose 170. He's been initiated on Symbicort, DuoNeb inhalations, IV Solu-Medrol. Heparin for DVT prophylaxis. Normal saline at 75 ML's per hour. Review of Systems CONSTITUTIONAL: Positive for generalized weakness, fatigue, weight. EYES: Denies change in vision. EARS, NOSE, MOUTH, THROAT: Denies headaches, denies sore throat. CARDIOVASCULAR: Denies chest pain, palpitations or syncopal episodes. RESPIRATORY: Positive for shortness of breath, cough, congestion no hemoptysis. GASTROINTESTINAL: Denies change in appetite, denies abdominal pain GENITOURINARY: Denies hematuria, denies infections. MUSKULOSKELETAL: Denies pain, denies swelling. INTEGUMENTARY: Denies rash, denies eczema. NEUROLOGICAL: Denies recent memory loss, no recent seizure activity. PSYCHIATRIC: Denies anxiety, denies depression. HEMATOLOGIC/LYMPHATIC: Denies anemia, denies enlarged lymph nodes. Past Medical History Past Medical History: COPD, Diabetes Mellitus, Hyperlipidemia, Hypertension, Osteoarthritis (OA), Respiratory Disorder, Thyroid Disorder, Vascular Disorder Additional Past Medical History / Comment(s): Chronic advanced COPD, chronic hypoxic hypercarbic respiratory failure, home oxygen at 4L/NC ATC, purulent tr acheobronchitis, NIDDM, hyponatremia, hyperkalemia, severe constipation 2010, hypothyroidism, skeletal chest wall pain, anemia, PVD/PAD, past leg and foot wounds, past L distal radius fracture, gout, protein calorie malnutrition, UTI with sepsis, urinary retention with IDC since removed, confused at times per spouse and ambulates alittle History of Any Multi-Drug Resistant Organisms: None Reported Past Surgical History: Heart Catheterization, Hysterectomy, Tubal Ligation Additional Past Surgical History / Comment(s): 2011 cardiac cath, 2013 cardiac angiogram, colonoscopy/benign polypectomy, anal fistula repair, bilateral cataract removals/lens implants. Past Anesthesia/Blood Transfusion Reactions: Postoperative Nausea & Vomiting (PONV) Additional Past Anesthesia/Blood Transfusion Reaction / Comment(s): nausea one time Smoking Status: Current some day smoker - Past Family History Mother History Unknown: Yes Family Medical History: Cancer, Thyroid Disorder Additional Family Medical History / Comment(s): Liver Cancer Father History Unknown: Yes Family Medical History: Cancer Medications and Allergies Home Medications Medication Instructions Recorded Confirmed Type Levothyroxine Sodium [Synthroid] 150 mcg PO DAILY #30 tablet 12/05/18 12/16/21 Rx Loratadine [Claritin] 10 mg PO DAILY 10/23/20 12/16/21 History Metoprolol Tartrate [Lopressor] 25 mg PO BID #60 tab 04/03/21 12/16/21 Rx Budesonide [Pulmicort] 1 mg INHALATION RT-BID ml 05/06/21 12/16/21 Rx Ammonium Lactate Lotion 1 applic TOPICAL BID 06/29/21 12/16/21 History [Lac-Hydrin 12% Lotion] Folic Acid 1 mg PO DAILY 06/29/21 12/16/21 History Pantoprazole [Protonix] 40 mg PO DAILY 06/29/21 12/16/21 History Tamsulosin [Flomax] 0.4 mg PO DAILY 06/29/21 12/16/21 History Atorvastatin [Lipitor] 20 mg PO HS 09/16/21 12/16/21 History Cholecalciferol [Vitamin D3 (25 50 mcg PO DAILY 09/16/21 12/16/21 History Mcg = 1000 Iu)] Ferrous Sulfate [Iron (65 MG 325 mg PO DAILY 09/16/21 12/16/21 History Elemental)] Formoterol Fumarate [Perforomist] 20 mcg INHALATION RT-BID #1 each 09/22/21 12/16/21 Rx amLODIPine [Norvasc] 10 mg PO DAILY #30 tab 09/22/21 12/16/21 Rx Furosemide [Lasix] 20 mg PO DAILY 11/17/21 12/16/21 History Hydrocortisone [Cortef] 10 mg PO BID 11/17/21 12/16/21 History INSULIN ASPART (NovoLOG) [NovoLOG See Protocol SQ ACHS 11/17/21 12/16/21 History (formulary)] Ipratropium-Albuterol Nebulize 3 ml INHALATION RT-Q6H PRN 11/17/21 12/16/21 History [Duoneb 0.5 mg-3 mg/3 ml Soln] Multivitamins, Thera [Multivitamin 1 tab PO DAILY 11/17/21 12/16/21 History (formulary)] Vitamin B Complex 1 cap PO DAILY 11/17/21 12/16/21 History glipiZIDE [Glucotrol] 5 mg PO BID 11/17/21 12/16/21 History Aspirin 81 mg PO DAILY 30 Days #30 tab 11/19/21 12/16/21 Rx Albuterol Sulfate [Ventolin HFA] 2 puff INHALATION RT-Q4H PRN #1 12/10/21 12/16/21 Rx each Budesonide-Formot 160-4.5 Mcg 2 puff INHALATION BID #1 each 12/10/21 12/16/21 Rx [Symbicort 160-4.5 Mcg Inhaler] Erythromycin Ophth Oint [Romycin 1 applic BOTH EYES Q8HR 7 Days #1 12/10/21 12/16/21 Rx Ophth Oint] tub predniSONE See Taper PO DIRECTED 12/16/21 12/16/21 History Allergies Allergy/AdvReac Type Severity Reaction Status Date / Time bacitracin Allergy Rash/Hives Verified 12/16/21 15:58 [From Neosporin ([id number])] neomycin Allergy Rash/Hives Verified 12/16/21 15:58 [From Neosporin ([id number])] Penicillins Allergy Rash/Hives Verified 12/16/21 15:58 polymyxin B Allergy Rash/Hives Verified 12/16/21 15:58 [From Neosporin ([id number])] trimethoprim [From Polytrim] Allergy Rash/Hives Verified 12/16/21 15:58 levofloxacin [From Levaquin] AdvReac WEAKNESS Verified 12/16/21 15:58 metformin AdvReac Diarrhea Verified 12/16/21 15:58 ELDA/POLY/DEX AdvReac Rash/Hives Uncoded 12/16/21 15:58 Physical Exam Vitals: Vital Signs Temp Pulse Pulse Resp BP BP Pulse Ox 12/17/21 14:00 98.1 F 84 16 124/69 96 12/17/21 11:49 91 12/17/21 11:28 73 12/17/21 09:25 12/17/21 08:45 12/17/21 08:13 64 96 12/17/21 07:17 98.6 F 77 16 104/53 99 12/17/21 05:56 98.8 F 87 16 131/70 99 12/17/21 00:30 92 12/17/21 00:17 92 12/16/21 23:52 92 20 134/72 89 L 12/16/21 20:32 94 20 112/74 97 12/16/21 18:10 94 16 118/59 99 12/16/21 17:15 94 18 12/16/21 17:05 96 20 12/16/21 15:46 98.7 F 102 H 20 116/68 99 FiO2 12/17/21 14:00 12/17/21 11:49 12/17/21 11:28 30 12/17/21 09:25 30 12/17/21 08:45 36 12/17/21 08:13 12/17/21 07:17 12/17/21 05:56 12/17/21 00:30 12/17/21 00:17 12/16/21 23:52 12/16/21 20:32 12/16/21 18:10 12/16/21 17:15 12/16/21 17:05 12/16/21 15:46 Intake and Output 12/17/21 12/17/21 12/17/21 06:59 14:59 22:59 Other: # Voids 1 GENERAL EXAM: Alert, pleasant frail 76-year-old female, on BiPAP 10/5, FiO2 30% FiO2, comfortable in no apparent distress. HEAD: Normocephalic. EYES: Normal reaction of pupils, equal size. NOSE: Clear with pink turbinates. THROAT: No erythema or exudates. NECK: No masses, no JVD. CHEST: No chest wall deformity. LUNGS: Equal air entry with faint bilateral end expiratory wheeze, diminished. CVS: S1 and S2 normal with no audible murmur, regular rhythm. ABDOMEN: No hepatosplenomegaly, normal bowel sounds, no guarding or rigidity. SPINE: No scoliosis or deformity SKIN: No rashes, arms have areas of ecchymosis. CENTRAL NERVOUS SYSTEM: No focal deficits, tone is normal in all 4 extremities. EXTREMITIES: There is no peripheral edema. No clubbing, no cyanosis. Peripheral pulses are intact. Results - Laboratory Findings CBC and BMP: 12/17/21 08:40 12/17/21 08:40 ABG ABG pH 7.23 (7.35-7.45) L 12/17/21 09:00 ABG pCO2 93 mmHg (35-45) H* 12/17/21 09:00 ABG pO2 70 mmHg (83-108) L 12/17/21 09:00 ABG O2 Saturation 93.2 % (94-97) L 12/17/21 09:00 PT/INR, D-dimer PT 9.6 sec (9.0-12.0) 12/16/21 15:59 INR 0.9 (<1.2) 12/16/21 15:59 Abnormal lab findings: Abnormal Labs 12/16/21 12/16/21 12/16/21 15:59 15:59 15:59 WBC 11.6 H MCHC 29.9 L Neutrophils # 10.9 H Lymphocytes # 0.1 L APTT 19.1 L ABG pH ABG pCO2 ABG pO2 ABG HCO3 ABG Total CO2 ABG O2 Saturation Sodium 128 L Chloride 90 L Carbon Dioxide 39 H BUN 29 H Creatinine Glucose 359 H POC Glucose (mg/dL) Total Protein 5.6 L Albumin 3.3 L Procalcitonin Urine Glucose (UA) 12/16/21 12/17/21 12/17/21 16:25 08:40 08:40 WBC MCHC 30.8 L Neutrophils # 7.9 H Lymphocytes # 0.4 L APTT ABG pH ABG pCO2 ABG pO2 ABG HCO3 ABG Total CO2 ABG O2 Saturation Sodium 133 L Chloride Carbon Dioxide 33 H BUN 29 H Creatinine 0.41 L Glucose 170 H POC Glucose (mg/dL) Total Protein Albumin Procalcitonin Urine Glucose (UA) 4+ H 12/17/21 12/17/21 12/17/21 08:40 08:56 09:00 WBC MCHC Neutrophils # Lymphocytes # APTT ABG pH 7.23 L ABG pCO2 93 H* ABG pO2 70 L ABG HCO3 39 H ABG Total CO2 42 H ABG O2 Saturation 93.2 L Sodium Chloride Carbon Dioxide BUN Creatinine Glucose POC Glucose (mg/dL) 171 H Total Protein Albumin Procalcitonin 0.19 H Urine Glucose (UA) - Diagnostic Findings Chest x-ray: image reviewed Assessment and Plan Assessment: Acute exacerbation of chronic obstructive pulmonary disease Acute on chronic hypoxemic respiratory failure secondary to above Acute on chronic hypercapnic respiratory failure secondary to above Advanced and end-stage COPD with chronic hypoxemic and hypercapnic respiratory failure related to advanced COPD, stage IV, with baseline FEV1 of 28% of predi cted, oxygen at 4 L of O2 by nasal cannula. Chronic and ongoing tobacco dependence Hypertension Osteoarthritis Hypothyroidism Anxiety Frequent falls History of fracture in the left upper extremity Multiple areas of ecchymosis largest in the left upper extremity Poor overall functional performance based on the above-mentioned multiple comorbidities Plan: The patient was seen and evaluated Chest x-ray, medications and labs reviewed Alternate BiPAP with her usual 4 L of nasal cannula Titrate the FiO2 as tolerated Continue IV Solu-Medrol, Symbicort, DuoNeb inhalations Social work regarding placement CODE STATUS should be addressed by primary services She has been a DO NOT RESUSCITATE/DO NOT INTUBATE CODE STATUS in the past We will continue to follow and make further recommendations based on her clinical status I have personally seen and examined the patient, performed the documentation and the assessment and plan as written. Number of minutes spent on the visit: 20. Plan: I have personally seen and examined the patient and reviewed the documentation. I performed a joint evaluation with the nurse practitioner in this evaluation was done more than 30 minutes. I fully agree with the documentation above and the plan of care. The patient is extensively debilitated. The patient may be a good hospice candidate. For now, we are going to optimize again her COPD. She is extremely cachectic. She has a body mass index of 16.1. He is on BiPAP for now. Blood gases was noted. She is much more awake and following BiPAP treatment.
[2021-12-17 17:11] LABS: Glucose,Whole Blood 119 mg/dL (70-110)
[2021-12-17 20:12] LABS: Glucose,Whole Blood 168 mg/dL (70-110)
[2021-12-17] MEDS: ATORVASTATIN 20 MG TAB PO SCH (20:43)
[2021-12-17] MEDS: AZITHROMYCIN 500 MG in SODIUM CHLORIDE 0.9% 250 ML IVPB SCH (23:51)
[2021-12-18] MEDS: LEVOTHYROXINE 75 MCG TAB PO SCH (05:32)
[2021-12-18] MEDS: methylPREDNISolone SOD SUCCI 125 MG/2 ML VIAL IV SCH ×4 (05:32→23:09)
[2021-12-18 06:53] LABS: Glucose,Whole Blood 153 mg/dL (70-110)
[2021-12-18] MEDS: SYMBICORT 160-4.5 MCG INHALER INHALATION SCH ×2 (07:55→19:24)
[2021-12-18] MEDS: IPRATROPIUM-ALBUTEROL 3 ML NEB INHALATION SCH ×4 (07:56→19:24)
[2021-12-18] MEDS: FOLIC ACID 1 MG TAB PO SCH (08:17)
[2021-12-18] MEDS: METOPROLOL TARTRATE 25 MG TAB PO SCH ×2 (08:17→20:59)
[2021-12-18] MEDS: CHOLECALCIFEROL 25 MCG (1000 IU) TABLET PO SCH (08:17)
[2021-12-18] MEDS: HYDROCORTISONE 10 MG TAB PO SCH ×2 (08:17→20:59)
[2021-12-18] MEDS: ASPIRIN 81 MG PO SCH (08:17)
[2021-12-18] MEDS: FERROUS SULFATE 325 MG TAB PO SCH (08:17)
[2021-12-18] MEDS: PANTOPRAZOLE 40 MG TABLET PO SCH (08:17)
[2021-12-18] MEDS: TAMSULOSIN 0.4 MG CAP.ER.24H PO SCH (08:17)
[2021-12-18] MEDS: MULTIVITAMINS, THERA 1 EACH TAB PO SCH (08:17)
[2021-12-18] MEDS: SPIRONOLACTONE 25 MG TAB PO SCH (08:17)
[2021-12-18] MEDS: HEPARIN SODIUM,PORCINE/PF 5,000 UNIT/0.5 ML SYRINGE SQ SCH ×2 (08:18→21:02)
[2021-12-18] MEDS: ERYTHROMYCIN 5 MG/GM OPHTH OINT 3.5 GM TUBE BOTH EYES SCH ×3 (08:18→23:10)
[2021-12-18] MEDS: INSULIN ASPART (NovoLOG) 100 UNIT/ML VIAL SQ SCH ×4 (08:18→21:02)
[2021-12-18 08:47] LABS: Basophils # (A) 0.01 X 10*3/uL (0.00-0.10); Basophils % (A) 0.1 %; Eosinophils # (A) 0 X 10*3/uL (0.04-0.35); Eosinophils % (A) 0 %; HCT 38.8 % (37.2-46.3); HGB 11.3 g/dL (12.0-15.0); Immature Grans, Automated 0.8 %; Lymphocytes # (A) 0.24 X 10*3/uL (0.90-5.00); Lymphocytes % (A) 2.3 %; MCH 27.8 pg (27.0-32.0); MCHC 29.1 g/dL (32.0-37.0); MCV 95.6 fL (80.0-97.0); Mean Platelet Volume 9.5 fL (9.5-12.2); Monocytes # (A) 0.12 X 10*3/uL (0.20-1.00); Monocytes % (A) 1.1 %; NRBC Per 100 WBC 0 /100 WBCS (0.0-0.0); Neutrophils # (A) 10.21 X 10*3/uL (1.80-7.70); Neutrophils % (A) 95.7 %; Platelet Count 249 X 10*3/uL (140-440); RBC 4.06 X 10*6/uL (4.10-5.20); RDW 13.8 % (11.5-14.5); WBC 10.66 X 10*3/uL (4.50-10.00)
[2021-12-18 08:52] LABS: African American GFR (CKD) 115.6 (60.0-200.0); Anion Gap 5.4 mmol/L (10.00-18.00); BUN/Creat Ratio 75.25 Ratio (12.00-20.00); Blood Urea Nitrogen 30.1 mg/dL (9.0-27.0); Calcium 8.9 mg/dL (8.7-10.3); Carbon Dioxide 32.6 mmol/L (20.0-27.5); Magnesium 2.1 mg/dL (1.5-2.4); Non-African American GFR(CKD) 99.8 (60.0-200.0); Potassium 4.9 mmol/L (3.5-5.5)
[2021-12-18] MEDS: glipiZIDE 5 MG TAB PO SCH ×2 (08:52→21:40)
[2021-12-18 11:02] LABS: Glucose,Whole Blood 197 mg/dL (70-110)
[2021-12-18] MEDS: SODIUM CHLORIDE 0.9% 1,000 ML IV SCH ×2 (12:39→21:40)
--- NOTE | 2021-12-18 13:46 | P.PN ---
Subjective Progress Note Date: 12/18/21 This is a very pleasant 76-year-old female patient with past medical history of advanced COPD, on home oxygen, normally wears 4 L of oxygen, baseline FEV1 of 28% of predicted, stage IV COPD, long history of chronic and ongoing smoking, hypertension, osteoarthritis, hypothyroidism, anxiety. She's had multiple admissions for COPD exacerbations and was recently discharged again on 12/10/2021. She presented again to the emergency room again yesterday with complaints of increasing shortness of breath. She been not taking her medications at home. She was unable to take care of herself in the home set ting. Chest x-ray revealed prominent interstitial lung markings, nonspecific and could be related to COPD changes. No acute pulmonary process. She is seen today in consultation in the emergency department. She is currently on BiPAP 10/5 and 30% FiO2. More awake and alert. Arterial blood gases revealed a PaO2 of 70, pCO2 of 93 and a pH of 7.23 on 32% FiO2. White count 9.3. Hemoglobin 12.5. Platelets 275. Sodium 133. Potassium 4.9. Bicarbonate 33. BUN 29. Creatinine 0.41. Glucose 170. He's been initiated on Symbicort, DuoNeb inhalations, IV Solu-Medrol. Heparin for DVT prophylaxis. Normal saline at 75 ML's per hour. On today's evaluation of 12/18/2021, doing much better and the patient has been more comfortable with her breathing. The patient will be given some time off t he BiPAP mask. She is currently the BiPAP at a pressure of 10/5 with an FiO2 of 30%. No chest pain. No signs of any CO2 narcosis. She is advanced end-stage COPD. The patient has recent blood work showing a white cell count of 10.6 hemoglobin of 11.3, BUN is at 30 with a creatinine of 0.4 and sodium level 135. She is extremely cachectic. We'll need to boost up her nutrition. Body mass index is 16.1. Objective - Vital Signs Vital signs: Vital Signs Temp 98.6 F 12/18/21 12:09 Pulse 70 12/18/21 12:09 Resp 13 12/18/21 12:09 BP 159/74 12/18/21 12:09 Pulse Ox 96 12/18/21 12:09 FiO2 30 12/18/21 11:25 Intake & Output 12/17/21 12/18/21 12/18/21 18:59 06:59 18:59 Intake Total 360 Output Total 250 Balance 110 Weight 45.359 kg Intake: Oral 360 Output: Urine 250 Other: Voiding Method Bedpan Bedpan # Voids 1 2 - Exam GENERAL EXAM: Alert, pleasant frail 76-year-old female, on BiPAP 10/5, FiO2 30% FiO2, comfortable in no apparent distress. HEAD: Normocephalic. EYES: Normal reaction of pupils, equal size. NOSE: Clear with pink turbinates. THROAT: No erythema or exudates. NECK: No masses, no JVD. CHEST: No chest wall deformity. LUNGS: Equal air entry with faint bilateral end expiratory wheeze, diminished. CVS: S1 and S2 normal with no audible murmur, regular rhythm. ABDOMEN: No hepatosplenomegaly, normal bowel sounds, no guarding or rigidity. SPINE: No scoliosis or deformity SKIN: No rashes, arms have areas of ecchymosis. CENTRAL NERVOUS SYSTEM: No focal deficits, tone is normal in all 4 extremities. EXTREMITIES: There is no peripheral edema. No clubbing, no cyanosis. Peripheral pulses are intact. - Labs CBC & Chem 7: 12/18/21 06:27 12/18/21 06:27 Labs: Abnormal Lab Results - Last 24 Hours (Table) 12/17/21 12/17/21 12/18/21 Range/Units 17:09 20:11 06:27 WBC 10.66 H (4.50-10.00) X 10*3/uL RBC 4.06 L (4.10-5.20) X 10*6/uL Hgb 11.3 L (12.0-15.0) g/dL MCHC 29.1 L (32.0-37.0) g/dL Immature Gran # 0.08 H (0.00-0.04) X 10*3/uL Neutrophils # 10.21 H (1.80-7.70) X 10*3/uL Lymphocytes # 0.24 L (0.90-5.00) X 10*3/uL Monocytes # 0.12 L (0.20-1.00) X 10*3/uL Eosinophils # 0 L (0.04-0.35) X 10*3/uL Carbon Dioxide (20.0-27.5) mmol/L Anion Gap (10.00-18.00) mmol/L BUN (9.0-27.0) mg/dL Creatinine (0.6-1.5) mg/dL BUN/Creatinine Ratio (12.00-20.00) Ratio Glucose (70-110) mg/dL POC Glucose (mg/dL) 119 H 168 H (70-110) mg/dL 12/18/21 12/18/21 12/18/21 Range/Units 06:27 06:51 11:00 WBC (4.50-10.00) X 10*3/uL RBC (4.10-5.20) X 10*6/uL Hgb (12.0-15.0) g/dL MCHC (32.0-37.0) g/dL Immature Gran # (0.00-0.04) X 10*3/uL Neutrophils # (1.80-7.70) X 10*3/uL Lymphocytes # (0.90-5.00) X 10*3/uL Monocytes # (0.20-1.00) X 10*3/uL Eosinophils # (0.04-0.35) X 10*3/uL Carbon Dioxide 32.6 H (20.0-27.5) mmol/L Anion Gap 5.40 L (10.00-18.00) mmol/L BUN 30.1 H (9.0-27.0) mg/dL Creatinine 0.4 L (0.6-1.5) mg/dL BUN/Creatinine Ratio 75.25 H (12.00-20.00) Ratio Glucose 163 H (70-110) mg/dL POC Glucose (mg/dL) 153 H 197 H (70-110) mg/dL Assessment and Plan Assessment: Acute exacerbation of chronic obstructive pulmonary disease, clinically improving and the patient is on a BiPAP at a pressure of 10/5 with an FiO2 of 30%. No signs of any CO2 narcosis Acute on chronic hypoxemic respiratory failure secondary to above Acute on chronic hypercapnic respiratory failure secondary to above Advanced and end-stage COPD with chronic hypoxemic and hypercapnic respiratory failure related to advanced COPD, stage IV, with baseline FEV1 of 28% of predict ed, oxygen at 4 L of O2 by nasal cannula. Chronic and ongoing tobacco dependence Hypertension Osteoarthritis Hypothyroidism Anxiety Frequent falls History of fracture in the left upper extremity Multiple areas of ecchymosis largest in the left upper extremity Poor overall functional performance based on the above-mentioned multiple comorbidities Plan: This patient off the BiPAP and give the patient a BiPAP for the time. For the next few hours Alternate BiPAP with her usual 4 L of nasal cannula Titrate the FiO2 as tolerated Continue IV Solu-Medrol, Symbicort, DuoNeb inhalations Social work regarding placement CODE STATUS should be addressed by primary services She has been a DO NOT RESUSCITATE/DO NOT INTUBATE CODE STATUS in the past Labs are all stable Chest x-ray is stable
[2021-12-18 15:48] VITALS: BMI 16.1
[2021-12-18 17:01] LABS: Glucose,Whole Blood 227 mg/dL (70-110)
--- NOTE | 2021-12-18 19:35 | P.PN ---
Subjective This is a pleasant 76 years old female with past medical history of COPD, Diabetes Mellitus, Hyperlipidemia, Hypertension, Osteoarthritis hypothyroidism ,chronic hypoxic hypercarbic respiratory failure, home oxygen at 4L/NC ATC, purulent tracheobronchitis, hyponatremia, hyperkalemia, severe constipation 2010, PVD/PAD, past leg and foot wounds, urinary retention with IDC since removed, Presents because of dyspnea. Her dyspnea was progressively worse , she was here in this hospital about one week ago, where she was evaluated by pulmonary ser vice, improved back to baseline and cleared for discharge with strict instruction not to go back to smoking , however pt kept smoking a lot at home as per . Patient was lying in room 18 in the emergency room, confused, when I ask her about her name she mumbles only, she barely moves her chest and there is no good air entry. I called the Tenzin barnes at [phone] and I discussed the case with him, he said she was getting breathing difficulty but he could not tell for how many days, then he has a visiting nurse who recommended for the present her to the hospital. During this time she was still smoking even in her bed breathing situation prior to come to the hospital she was urging the to give her a cigarette "that's how bad it is" states. However the does not want any Heroic measures and when I talked to him about possible palliative care versus hospice he agreed and he wants me to consult hospice team for her Patient chronic heavy smoker, possible could not specify how much she smokes, no alcohol or illicit drugs Patient is afebrile and vitals are stable, she is saturating 99% on 3 L oxygen via nasal cannula WBC is 11.6. Trace of CBC is unremarkable, INR 0.9, 12/18/2021 Patient is awake and alert today but she is looking very tired. She was on 4 L/m of oxygen in the morning. She has been using the BiPAP during the night. Other than that vitals and labs look stable. WBC is 10, hemoglobin 11. She remains on Zithromax, Solu-Medrol and normal saline at 75 mL/h as patient looks dehydrated. I ask her and she confirmed to me she wants to talk to hospice care team. Currently patient has DO NOT RESUSCITATE order addressed by primary team Objective - Vital Signs Vital signs: Vital Signs Temp 97.8 F 12/18/21 04:57 Pulse 90 12/18/21 11:36 Resp 16 12/18/21 04:57 BP 151/80 12/18/21 04:57 Pulse Ox 94 L 12/18/21 04:57 FiO2 30 12/18/21 11:25 Intake & Output 12/17/21 12/18/21 12/18/21 18:59 06:59 18:59 Intake Total 360 Output Total 250 Balance 110 Weight 45.359 kg Intake: Oral 360 Output: Urine 250 Other: Voiding Method Bedpan Bedpan # Voids 1 2 - Exam -GENERAL: The patient is alert and oriented x3, not in any acute distress. Patient is very cachectic HEENT: Pupils are round and equally reacting to light. EOMI. No scleral icterus. No conjunctival pallor. Normocephalic, atraumatic. No pharyngeal erythema. No thyromegaly. CARDIOVASCULAR: S1 and S2 present. No murmurs, rubs, or gallops. -PULMONARY: Chest is clear to auscultation, no scattered wheezing with limited air entry ABDOMEN: Soft, nontender, nondistended, normoactive bowel sounds. No palpable organomegaly. MUSCULOSKELETAL: No joint swelling or deformity. EXTREMITIES: No cyanosis, clubbing, or pedal edema. NEUROLOGICAL: Gross neurological examination did not reveal any focal deficits. SKIN: No rashes. no petechiae. - Labs CBC & Chem 7: 12/18/21 06:27 12/18/21 06:27 Labs: Abnormal Lab Results - Last 24 Hours (Table) 12/17/21 12/17/21 12/18/21 Range/Units 17:09 20:11 06:27 WBC 10.66 H (4.50-10.00) X 10*3/uL RBC 4.06 L (4.10-5.20) X 10*6/uL Hgb 11.3 L (12.0-15.0) g/dL MCHC 29.1 L (32.0-37.0) g/dL Immature Gran # 0.08 H (0.00-0.04) X 10*3/uL Neutrophils # 10.21 H (1.80-7.70) X 10*3/uL Lymphocytes # 0.24 L (0.90-5.00) X 10*3/uL Monocytes # 0.12 L (0.20-1.00) X 10*3/uL Eosinophils # 0 L (0.04-0.35) X 10*3/uL Carbon Dioxide (20.0-27.5) mmol/L Anion Gap (10.00-18.00) mmol/L BUN (9.0-27.0) mg/dL Creatinine (0.6-1.5) mg/dL BUN/Creatinine Ratio (12.00-20.00) Ratio Glucose (70-110) mg/dL POC Glucose (mg/dL) 119 H 168 H (70-110) mg/dL 12/18/21 12/18/21 12/18/21 Range/Units 06:27 06:51 11:00 WBC (4.50-10.00) X 10*3/uL RBC (4.10-5.20) X 10*6/uL Hgb (12.0-15.0) g/dL MCHC (32.0-37.0) g/dL Immature Gran # (0.00-0.04) X 10*3/uL Neutrophils # (1.80-7.70) X 10*3/uL Lymphocytes # (0.90-5.00) X 10*3/uL Monocytes # (0.20-1.00) X 10*3/uL Eosinophils # (0.04-0.35) X 10*3/uL Carbon Dioxide 32.6 H (20.0-27.5) mmol/L Anion Gap 5.40 L (10.00-18.00) mmol/L BUN 30.1 H (9.0-27.0) mg/dL Creatinine 0.4 L (0.6-1.5) mg/dL BUN/Creatinine Ratio 75.25 H (12.00-20.00) Ratio Glucose 163 H (70-110) mg/dL POC Glucose (mg/dL) 153 H 197 H (70-110) mg/dL Assessment and Plan Assessment: Acute exacerbation of end-stage COPD Acute on chronic hypoxic respiratory failure severe calorie protein malnutrition Metabolic encephalopathy most likely secondary to above, resolved Nicotine dependence Hyponatremia Hyponatremia, chronic Diabetes mellitus Hypertension Hyperlipidemia Hypothyroidism History of osteoarthritis Plan: This is a pleasant 76 years old female who presents with acute COPD exacerbation Continue with steroids and bronchodilator Pulmonary consult As per he wanted to consult hospice care for her. This is confirmed by the patient herself when I talked to her Continue with the glipizide and insulin sliding scale Labs and medication were reviewed.. Continue same treatment. Continue with symptomatic treatment. Resume home medication. Monitor lytes and vitals. DVT and GI prophylaxis. Further recommendations depends on the clinical course of the patient DVT prophylaxis: Subcutaneous heparin GI Prophylaxis: Ppi Prognosis is very poor Continue with BiPAP at night
[2021-12-18 19:59] LABS: Glucose,Whole Blood 326 mg/dL (70-110)
[2021-12-18] MEDS: ATORVASTATIN 20 MG TAB PO SCH (20:59)
[2021-12-18] MEDS: AZITHROMYCIN 500 MG in SODIUM CHLORIDE 0.9% 250 ML IVPB SCH (21:01)
[2021-12-19] MEDS: LEVOTHYROXINE 75 MCG TAB PO SCH (06:16)
[2021-12-19] MEDS: methylPREDNISolone SOD SUCCI 125 MG/2 ML VIAL IV SCH ×3 (06:16→17:29)
[2021-12-19 07:22] LABS: Glucose,Whole Blood 139 mg/dL (70-110)
[2021-12-19] MEDS: IPRATROPIUM-ALBUTEROL 3 ML NEB INHALATION SCH ×4 (07:34→20:26)
[2021-12-19] MEDS: SYMBICORT 160-4.5 MCG INHALER INHALATION SCH ×2 (07:34→20:26)
[2021-12-19] MEDS: INSULIN ASPART (NovoLOG) 100 UNIT/ML VIAL SQ SCH ×4 (08:10→22:25)
[2021-12-19] MEDS: METOPROLOL TARTRATE 25 MG TAB PO SCH ×2 (08:10→20:15)
[2021-12-19] MEDS: ASPIRIN 81 MG PO SCH (08:10)
[2021-12-19] MEDS: PANTOPRAZOLE 40 MG TABLET PO SCH (08:10)
[2021-12-19] MEDS: CHOLECALCIFEROL 25 MCG (1000 IU) TABLET PO SCH (08:10)
[2021-12-19] MEDS: MULTIVITAMINS, THERA 1 EACH TAB PO SCH (08:10)
[2021-12-19] MEDS: SPIRONOLACTONE 25 MG TAB PO SCH (08:10)
[2021-12-19] MEDS: TAMSULOSIN 0.4 MG CAP.ER.24H PO SCH (08:10)
[2021-12-19] MEDS: HEPARIN SODIUM,PORCINE/PF 5,000 UNIT/0.5 ML SYRINGE SQ SCH ×2 (08:10→20:15)
[2021-12-19] MEDS: FOLIC ACID 1 MG TAB PO SCH (08:10)
[2021-12-19] MEDS: FERROUS SULFATE 325 MG TAB PO SCH (08:10)
[2021-12-19] MEDS: glipiZIDE 5 MG TAB PO SCH ×2 (08:11→20:15)
[2021-12-19] MEDS: HYDROCORTISONE 10 MG TAB PO SCH ×2 (08:11→20:15)
[2021-12-19] MEDS: ERYTHROMYCIN 5 MG/GM OPHTH OINT 3.5 GM TUBE BOTH EYES SCH ×2 (08:11→17:29)
--- NOTE | 2021-12-19 11:39 | P.PN ---
Subjective Progress Note Date: 12/19/21 This is a very pleasant 76-year-old female patient with past medical history of advanced COPD, on home oxygen, normally wears 4 L of oxygen, baseline FEV1 of 28% of predicted, stage IV COPD, long history of chronic and ongoing smoking, hypertension, osteoarthritis, hypothyroidism, anxiety. She's had multiple admissions for COPD exacerbations and was recently discharged again on 12/10/2021. She presented again to the emergency room again yesterday with complaints of increasing shortness of breath. She been not taking her medications at home. She was unable to take care of herself in the home set ting. Chest x-ray revealed prominent interstitial lung markings, nonspecific and could be related to COPD changes. No acute pulmonary process. She is seen today in consultation in the emergency department. She is currently on BiPAP 10/5 and 30% FiO2. More awake and alert. Arterial blood gases revealed a PaO2 of 70, pCO2 of 93 and a pH of 7.23 on 32% FiO2. White count 9.3. Hemoglobin 12.5. Platelets 275. Sodium 133. Potassium 4.9. Bicarbonate 33. BUN 29. Creatinine 0.41. Glucose 170. He's been initiated on Symbicort, DuoNeb inhalations, IV Solu-Medrol. Heparin for DVT prophylaxis. Normal saline at 75 ML's per hour. On today's evaluation of 12/18/2021, doing much better and the patient has been more comfortable with her breathing. The patient will be given some time off t he BiPAP mask. She is currently the BiPAP at a pressure of 10/5 with an FiO2 of 30%. No chest pain. No signs of any CO2 narcosis. She is advanced end-stage COPD. The patient has recent blood work showing a white cell count of 10.6 hemoglobin of 11.3, BUN is at 30 with a creatinine of 0.4 and sodium level 135. She is extremely cachectic. We'll need to boost up her nutrition. Body mass index is 16.1. 12/19/2021, the patient is awake and alert and the patient denies having any specific complaints the patient is currently off the BiPAP and patient is currently on 5 L of O2 nasal cannula. This can be further weaning down. Overnight, she is still using the BiPAP. No chest pain. Limited congestion. Remains on Rocephin and IV Solu-Medrol and DuoNeb nebulized treatments around the clock. Objective - Vital Signs Vital signs: Vital Signs Temp 98.5 F 12/19/21 05:00 Pulse 90 12/19/21 07:46 Resp 16 12/19/21 05:00 BP 147/75 12/19/21 05:00 Pulse Ox 96 12/19/21 05:00 FiO2 30 12/19/21 03:37 Intake & Output 12/18/21 12/19/21 12/19/21 18:59 06:59 18:59 Weight 45.359 kg Other: Voiding Method Bedpan Bedpan # Voids 2 1 2 # Bowel Movements 1 1 - Exam GENERAL EXAM: Alert, pleasant frail 76-year-old female, on BiPAP 10/5, FiO2 30% FiO2, comfortable in no apparent distress. HEAD: Normocephalic. EYES: Normal reaction of pupils, equal size. NOSE: Clear with pink turbinates. THROAT: No erythema or exudates. NECK: No masses, no JVD. CHEST: No chest wall deformity. LUNGS: Equal air entry with faint bilateral end expiratory wheeze, diminished. CVS: S1 and S2 normal with no audible murmur, regular rhythm. ABDOMEN: No hepatosplenomegaly, normal bowel sounds, no guarding or rigidity. SPINE: No scoliosis or deformity SKIN: No rashes, arms have areas of ecchymosis. CENTRAL NERVOUS SYSTEM: No focal deficits, tone is normal in all 4 extremities. EXTREMITIES: There is no peripheral edema. No clubbing, no cyanosis. Peripheral pulses are intact. - Labs CBC & Chem 7: 12/18/21 06:27 12/18/21 06:27 Labs: Abnormal Lab Results - Last 24 Hours (Table) 12/18/21 12/18/21 12/19/21 Range/Units 16:59 19:58 07:21 POC Glucose (mg/dL) 227 H 326 H 139 H (70-110) mg/dL Assessment and Plan Assessment: Acute exacerbation of chronic obstructive pulmonary disease, clinically improving currently off the BiPAP although she still using the BiPAP overnight Acute on chronic hypoxemic respiratory failure secondary to above, 5 L of O2 nasal cannula Acute on chronic hypercapnic respiratory failure secondary to above, improved that is no signs of CO2 narcosis Advanced and end-stage COPD with chronic hypoxemic and hypercapnic respiratory failure related to advanced COPD, stage IV, with baseline FEV1 of 28% of predicted, oxygen at 4 L of O2 by nasal cannula. Chronic and ongoing tobacco dependence Hypertension Osteoarthritis Hypothyroidism Anxiety Frequent falls History of fracture in the left upper extremity Multiple areas of ecchymosis largest in the left upper extremity Poor overall functional performance based on the above-mentioned multiple comorbidities Plan: Wean down the FiO2 as tolerated currently on 5 L Titrate the FiO2 as tolerated Continue IV Solu-Medrol, Symbicort, DuoNeb inhalations Zithromax and empiric antibiotic coverage Social work regarding placement CODE STATUS should be addressed by primary services She has been a DO NOT RESUSCITATE/DO NOT INTUBATE CODE STATUS in the past Clinically improving and the patient has no signs of CO2 narcosis
[2021-12-19 11:59] LABS: Glucose,Whole Blood 165 mg/dL (70-110)
[2021-12-19 17:06] LABS: Glucose,Whole Blood 207 mg/dL (70-110)
[2021-12-19] MEDS: SODIUM CHLORIDE 0.9% 1,000 ML IV SCH (17:24)
--- NOTE | 2021-12-19 18:42 | P.PN ---
Subjective This is a pleasant 76 years old female with past medical history of COPD, Diabetes Mellitus, Hyperlipidemia, Hypertension, Osteoarthritis hypothyroidism ,chronic hypoxic hypercarbic respiratory failure, home oxygen at 4L/[place] ATC, purulent tracheobronchitis, hyponatremia, hyperkalemia, severe constipation 2010, PVD/PAD, past leg and foot wounds, urinary retention with IDC since removed, Presents because of dyspnea. Her dyspnea was progressively worse , she was here in this hospital about one week ago, where she was evaluated by pulmonary ser vice, improved back to baseline and cleared for discharge with strict instruction not to go back to smoking , however pt kept smoking a lot at home as per . Patient was lying in room 18 in the emergency room, confused, when I ask her about her name she mumbles only, she barely moves her chest and there is no good air entry. I called the Tenzin barnes at [phone] and I discussed the case with him, he said she was getting breathing difficulty but he could not tell for how many days, then he has a visiting nurse who recommended for the present her to the hospital. During this time she was still smoking even in her bed breathing situation prior to come to the hospital she was urging the to give her a cigarette "that's how bad it is" states. However the does not want any Heroic measures and when I talked to him about possible palliative care versus hospice he agreed and he wants me to consult hospice team for her Patient chronic heavy smoker, possible could not specify how much she smokes, no alcohol or illicit drugs Patient is afebrile and vitals are stable, she is saturating 99% on 3 L oxygen via nasal cannula WBC is 11.6. Trace of CBC is unremarkable, INR 0.9, 12/18/2021 Patient is awake and alert today but she is looking very tired. She was on 4 L/m of oxygen in the morning. She has been using the BiPAP during the night. Other than that vitals and labs look stable. WBC is 10, hemoglobin 11. She remains on Zithromax, Solu-Medrol and normal saline at 75 mL/h as patient looks dehydrated. I ask her and she confirmed to me she wants to talk to hospice care team. Currently patient has DO NOT RESUSCITATE order addressed by primary team 12/19/2021 patient sitting in bed most of the time, she looks not in significant distress. She can talk and awake but very tired very cachectic and barely can move her chest while breathing because of her advanced and end stage COPD. She is on Solu-Medrol and Zithromax IV fluids were stopped Check BMP in the morning Objective - Vital Signs Vital signs: Vital Signs Temp 98.5 F 12/19/21 05:00 Pulse 90 12/19/21 07:46 Resp 16 12/19/21 05:00 BP 147/75 12/19/21 05:00 Pulse Ox 96 12/19/21 05:00 FiO2 30 12/19/21 03:37 Intake & Output 12/18/21 12/19/21 12/19/21 18:59 06:59 18:59 Weight 45.359 kg Other: Voiding Method Bedpan Bedpan Bedpan # Voids 2 1 2 # Bowel Movements 1 1 - Exam -GENERAL: The patient is alert and oriented x3, not in any acute distress. Patient is very cachectic HEENT: Pupils are round and equally reacting to light. EOMI. No scleral icterus. No conjunctival pallor. Normocephalic, atraumatic. No pharyngeal erythema. No thyromegaly. CARDIOVASCULAR: S1 and S2 present. No murmurs, rubs, or gallops. -PULMONARY: Chest is clear to auscultation, no scattered wheezing with limited air entry ABDOMEN: Soft, nontender, nondistended, normoactive bowel sounds. No palpable organomegaly. MUSCULOSKELETAL: No joint swelling or deformity. EXTREMITIES: No cyanosis, clubbing, or pedal edema. NEUROLOGICAL: Gross neurological examination did not reveal any focal deficits. SKIN: No rashes. no petechiae. - Labs CBC & Chem 7: 12/18/21 06:27 12/18/21 06:27 Labs: Abnormal Lab Results - Last 24 Hours (Table) 12/18/21 12/18/21 12/19/21 Range/Units 16:59 19:58 07:21 POC Glucose (mg/dL) 227 H 326 H 139 H (70-110) mg/dL 12/19/21 Range/Units 11:57 POC Glucose (mg/dL) 165 H (70-110) mg/dL Assessment and Plan Assessment: Acute exacerbation of end-stage COPD Acute on chronic hypoxic respiratory failure severe calorie protein malnutrition Metabolic encephalopathy most likely secondary to above, resolved Nicotine dependence Hyponatremia Hyponatremia, chronic Diabetes mellitus Hypertension Hyperlipidemia Hypothyroidism History of osteoarthritis Plan: This is a pleasant 76 years old female who presents with acute COPD exacerbation Continue with steroids and bronchodilator Pulmonary consult As per he wanted to consult hospice care for her. This is confirmed by the patient herself when I talked to her Continue with the glipizide and insulin sliding scale Labs and medication were reviewed.. Continue same treatment. Continue with symptomatic treatment. Resume home medication. Monitor lytes and vitals. DVT and GI prophylaxis. Further recommendations depends on the clinical course of the patient DVT prophylaxis: Subcutaneous heparin GI Prophylaxis: Ppi Prognosis is very poor Continue with BiPAP at night
[2021-12-19] MEDS: ATORVASTATIN 20 MG TAB PO SCH (20:15)
[2021-12-19] MEDS: AZITHROMYCIN 500 MG TAB PO SCH (20:15)
[2021-12-19 20:36] LABS: Glucose,Whole Blood 159 mg/dL (70-110)
[2021-12-20] MEDS: methylPREDNISolone SOD SUCCI 125 MG/2 ML VIAL IV SCH ×4 (01:22→17:47)
[2021-12-20] MEDS: ERYTHROMYCIN 5 MG/GM OPHTH OINT 3.5 GM TUBE BOTH EYES SCH ×3 (01:25→17:47)
[2021-12-20] MEDS: LEVOTHYROXINE 75 MCG TAB PO SCH (05:59)
[2021-12-20] MEDS: SYMBICORT 160-4.5 MCG INHALER INHALATION SCH ×2 (07:18→19:08)
[2021-12-20] MEDS: IPRATROPIUM-ALBUTEROL 3 ML NEB INHALATION SCH ×4 (07:18→19:08)
[2021-12-20 07:37] LABS: Glucose,Whole Blood 263 mg/dL (70-110)
[2021-12-20] MEDS: FERROUS SULFATE 325 MG TAB PO SCH (08:46)
[2021-12-20] MEDS: ASPIRIN 81 MG PO SCH (08:46)
[2021-12-20] MEDS: CHOLECALCIFEROL 25 MCG (1000 IU) TABLET PO SCH (08:46)
[2021-12-20] MEDS: METOPROLOL TARTRATE 25 MG TAB PO SCH ×2 (08:46→20:58)
[2021-12-20] MEDS: MULTIVITAMINS, THERA 1 EACH TAB PO SCH (08:46)
[2021-12-20] MEDS: PANTOPRAZOLE 40 MG TABLET PO SCH (08:46)
[2021-12-20] MEDS: SPIRONOLACTONE 25 MG TAB PO SCH (08:46)
[2021-12-20] MEDS: TAMSULOSIN 0.4 MG CAP.ER.24H PO SCH (08:46)
[2021-12-20] MEDS: glipiZIDE 5 MG TAB PO SCH ×2 (08:46→20:58)
[2021-12-20] MEDS: HEPARIN SODIUM,PORCINE/PF 5,000 UNIT/0.5 ML SYRINGE SQ SCH ×2 (08:46→20:58)
[2021-12-20] MEDS: HYDROCORTISONE 10 MG TAB PO SCH ×2 (08:46→20:59)
[2021-12-20] MEDS: FOLIC ACID 1 MG TAB PO SCH (08:46)
[2021-12-20] MEDS: INSULIN ASPART (NovoLOG) 100 UNIT/ML VIAL SQ SCH ×4 (08:47→20:59)
[2021-12-20 10:34] LABS: African American GFR (CKD) 106.8 (60.0-200.0); Anion Gap 3.6 mmol/L (10.00-18.00); BUN/Creat Ratio 81.34 Ratio (12.00-20.00); Blood Urea Nitrogen 41.4 mg/dL (9.0-27.0); Calcium 9.3 mg/dL (8.7-10.3); Carbon Dioxide 34.8 mmol/L (20.0-27.5); Non-African American GFR(CKD) 92.2 (60.0-200.0); Potassium 5.1 mmol/L (3.5-5.5)
--- NOTE | 2021-12-20 11:49 | P.PN ---
Subjective Progress Note Date: 12/20/21 This is a very pleasant 76-year-old female patient with past medical history of advanced COPD, on home oxygen, normally wears 4 L of oxygen, baseline FEV1 of 28% of predicted, stage IV COPD, long history of chronic and ongoing smoking, hypertension, osteoarthritis, hypothyroidism, anxiety. She's had multiple admissions for COPD exacerbations and was recently discharged again on 12/10/2021. She presented again to the emergency room again yesterday with complaints of increasing shortness of breath. She been not taking her medications at home. She was unable to take care of herself in the home set ting. Chest x-ray revealed prominent interstitial lung markings, nonspecific and could be related to COPD changes. No acute pulmonary process. She is seen today in consultation in the emergency department. She is currently on BiPAP 10/5 and 30% FiO2. More awake and alert. Arterial blood gases revealed a PaO2 of 70, pCO2 of 93 and a pH of 7.23 on 32% FiO2. White count 9.3. Hemoglobin 12.5. Platelets 275. Sodium 133. Potassium 4.9. Bicarbonate 33. BUN 29. Creatinine 0.41. Glucose 170. He's been initiated on Symbicort, DuoNeb inhalations, IV Solu-Medrol. Heparin for DVT prophylaxis. Normal saline at 75 ML's per hour. On today's evaluation of 12/18/2021, doing much better and the patient has been more comfortable with her breathing. The patient will be given some time off t he BiPAP mask. She is currently the BiPAP at a pressure of 10/5 with an FiO2 of 30%. No chest pain. No signs of any CO2 narcosis. She is advanced end-stage COPD. The patient has recent blood work showing a white cell count of 10.6 hemoglobin of 11.3, BUN is at 30 with a creatinine of 0.4 and sodium level 135. She is extremely cachectic. We'll need to boost up her nutrition. Body mass index is 16.1. 12/19/2021, the patient is awake and alert and the patient denies having any specific complaints the patient is currently off the BiPAP and patient is currently on 5 L of O2 nasal cannula. This can be further weaning down. Overnight, she is still using the BiPAP. No chest pain. Limited congestion. Remains on Rocephin and IV Solu-Medrol and DuoNeb nebulized treatments around the clock. 7022, clinically the same and the patient is unchanged. No signs of any CO2 narcosis and the patient is interactive at 5 L of oxygen by nasal cannula. Remains on Rocephin and Zithromax. Remains on IV Solu-Medrol. Weak and extensively debilitated. May need placement. Objective - Vital Signs Vital signs: Vital Signs Temp 98.7 F 12/20/21 05:00 Pulse 82 12/20/21 11:10 Resp 20 12/20/21 05:00 BP 138/67 12/20/21 05:00 Pulse Ox 92 L 12/20/21 05:00 FiO2 30 12/20/21 03:48 Intake & Output 12/19/21 12/20/21 12/20/21 18:59 06:59 18:59 Intake Total 400 Balance 400 Intake: Oral 400 Other: Voiding Method Bedpan Bedpan Bedpan # Voids 1 2 1 - Exam GENERAL EXAM: Alert, pleasant frail 76-year-old female, on BiPAP 10/5, FiO2 30% FiO2, comfortable in no apparent distress. HEAD: Normocephalic. EYES: Normal reaction of pupils, equal size. NOSE: Clear with pink turbinates. THROAT: No erythema or exudates. NECK: No masses, no JVD. CHEST: No chest wall deformity. LUNGS: Equal air entry with faint bilateral end expiratory wheeze, diminished. CVS: S1 and S2 normal with no audible murmur, regular rhythm. ABDOMEN: No hepatosplenomegaly, normal bowel sounds, no guarding or rigidity. SPINE: No scoliosis or deformity SKIN: No rashes, arms have areas of ecchymosis. CENTRAL NERVOUS SYSTEM: No focal deficits, tone is normal in all 4 extremities. EXTREMITIES: There is no peripheral edema. No clubbing, no cyanosis. Peripheral pulses are intact. - Labs CBC & Chem 7: 12/18/21 06:27 12/20/21 04:42 Labs: Abnormal Lab Results - Last 24 Hours (Table) 12/19/21 12/19/21 12/19/21 Range/Units 11:57 16:58 20:30 Carbon Dioxide (20.0-27.5) mmol/L Anion Gap (10.00-18.00) mmol/L BUN (9.0-27.0) mg/dL Creatinine (0.6-1.5) mg/dL BUN/Creatinine Ratio (12.00-20.00) Ratio Glucose (70-110) mg/dL POC Glucose (mg/dL) 165 H 207 H 159 H (70-110) mg/dL 12/20/21 12/20/21 Range/Units 04:42 07:20 Carbon Dioxide 34.8 H (20.0-27.5) mmol/L Anion Gap 3.60 L (10.00-18.00) mmol/L BUN 41.4 H (9.0-27.0) mg/dL Creatinine 0.5 L (0.6-1.5) mg/dL BUN/Creatinine Ratio 81.34 H (12.00-20.00) Ratio Glucose 152 H (70-110) mg/dL POC Glucose (mg/dL) 263 H (70-110) mg/dL Assessment and Plan Assessment: Acute exacerbation of chronic obstructive pulmonary disease, clinically improving Acute on chronic hypoxemic respiratory failure secondary to above, 5 L of O2 nasal cannula Acute on chronic hypercapnic respiratory failure secondary to above, improved that is no signs of CO2 narcosis Advanced and end-stage COPD with chronic hypoxemic and hypercapnic respiratory failure related to advanced COPD, stage IV, with baseline FEV1 of 28% of predicted, oxygen at 4 L of O2 by nasal cannula. Chronic and ongoing tobacco dependence Hypertension Osteoarthritis Hypothyroidism Anxiety Frequent falls History of fracture in the left upper extremity Multiple areas of ecchymosis largest in the left upper extremity Poor overall functional performance based on the above-mentioned multiple comorbidities Plan: Wean down the FiO2 as tolerated currently on 5 L No major change in her condition No signs of CO2 narcosis Titrate the FiO2 as tolerated Continue IV Solu-Medrol, Symbicort, DuoNeb inhalations Zithromax and empiric antibiotic coverage Social work regarding placement CODE STATUS should be addressed by primary services She has been a DO NOT RESUSCITATE/DO NOT INTUBATE CODE STATUS in the past
[2021-12-20 12:13] LABS: Glucose,Whole Blood 318 mg/dL (70-110)
[2021-12-20] MEDS: SODIUM CHLORIDE 0.9% 1,000 ML IV SCH (12:33)
[2021-12-20 17:08] LABS: Glucose,Whole Blood 250 mg/dL (70-110)
[2021-12-20 19:30] LABS: Glucose,Whole Blood 202 mg/dL (70-110)
[2021-12-20] MEDS: AZITHROMYCIN 500 MG TAB PO SCH (20:58)
[2021-12-20] MEDS: ATORVASTATIN 20 MG TAB PO SCH (20:58)
--- NOTE | 2021-12-21 | P.PN ---
Subjective This is a pleasant 76 years old female with past medical history of COPD, Diabetes Mellitus, Hyperlipidemia, Hypertension, Osteoarthritis hypothyroidism ,chronic hypoxic hypercarbic respiratory failure, home oxygen at 4L/[place] ATC, purulent tracheobronchitis, hyponatremia, hyperkalemia, severe constipation 2010, PVD/PAD, past leg and foot wounds, urinary retention with IDC since removed, Presents because of dyspnea. Her dyspnea was progressively worse , she was here in this hospital about one week ago, where she was evaluated by pulmonary ser vice, improved back to baseline and cleared for discharge with strict instruction not to go back to smoking , however pt kept smoking a lot at home as per . Patient was lying in room 18 in the emergency room, confused, when I ask her about her name she mumbles only, she barely moves her chest and there is no good air entry. I called the Tenzin barnes at [phone] and I discussed the case with him, he said she was getting breathing difficulty but he could not tell for how many days, then he has a visiting nurse who recommended for the present her to the hospital. During this time she was still smoking even in her bed breathing situation prior to come to the hospital she was urging the to give her a cigarette "that's how bad it is" states. However the does not want any Heroic measures and when I talked to him about possible palliative care versus hospice he agreed and he wants me to consult hospice team for her Patient chronic heavy smoker, possible could not specify how much she smokes, no alcohol or illicit drugs Patient is afebrile and vitals are stable, she is saturating 99% on 3 L oxygen via nasal cannula WBC is 11.6. Trace of CBC is unremarkable, INR 0.9, 12/18/2021 Patient is awake and alert today but she is looking very tired. She was on 4 L/m of oxygen in the morning. She has been using the BiPAP during the night. Other than that vitals and labs look stable. WBC is 10, hemoglobin 11. She remains on Zithromax, Solu-Medrol and normal saline at 75 mL/h as patient looks dehydrated. I ask her and she confirmed to me she wants to talk to hospice care team. Currently patient has DO NOT RESUSCITATE order addressed by primary team 12/19/2021 patient sitting in bed most of the time, she looks not in significant distress. She can talk and awake but very tired very cachectic and barely can move her chest while breathing because of her advanced and end stage COPD. She is on Solu-Medrol and Zithromax IV fluids were stopped Check BMP in the morning 12/20/21 Patient awake alert and oriented. She is less tired. Today I tried to explain to the patient the nature of her advanced disease. She is on 5 L oxygen via nasal cannula but stopped using BiPAP during the night. She remains on Solu-Medrol 60 mg Zithromax. IV fluids stopped we would add ensure for nutrition support I agree patient might benefit from placement Objective - Vital Signs Vital signs: Vital Signs Temp 98.7 F 12/20/21 05:00 Pulse 78 12/20/21 07:29 Resp 20 12/20/21 05:00 BP 138/67 12/20/21 05:00 Pulse Ox 92 L 12/20/21 05:00 FiO2 30 12/20/21 03:48 Intake & Output 12/19/21 12/20/21 12/20/21 18:59 06:59 18:59 Intake Total 400 Balance 400 Intake: Oral 400 Other: Voiding Method Bedpan Bedpan # Voids 1 2 1 - Exam -GENERAL: The patient is alert and oriented x3, not in any acute distress. Patient is very cachectic HEENT: Pupils are round and equally reacting to light. EOMI. No scleral icterus. No conjunctival pallor. Normocephalic, atraumatic. No pharyngeal erythema. No thyromegaly. CARDIOVASCULAR: S1 and S2 present. No murmurs, rubs, or gallops. -PULMONARY: Chest is clear to auscultation, no scattered wheezing with limited air entry ABDOMEN: Soft, nontender, nondistended, normoactive bowel sounds. No palpable organomegaly. MUSCULOSKELETAL: No joint swelling or deformity. EXTREMITIES: No cyanosis, clubbing, or pedal edema. NEUROLOGICAL: Gross neurological examination did not reveal any focal deficits. SKIN: No rashes. no petechiae. - Labs CBC & Chem 7: 12/18/21 06:27 12/20/21 04:42 Labs: Abnormal Lab Results - Last 24 Hours (Table) 12/19/21 12/19/21 12/19/21 Range/Units 11:57 16:58 20:30 Carbon Dioxide (20.0-27.5) mmol/L Anion Gap (10.00-18.00) mmol/L BUN (9.0-27.0) mg/dL Creatinine (0.6-1.5) mg/dL BUN/Creatinine Ratio (12.00-20.00) Ratio Glucose (70-110) mg/dL POC Glucose (mg/dL) 165 H 207 H 159 H (70-110) mg/dL 12/20/21 12/20/21 Range/Units 04:42 07:20 Carbon Dioxide 34.8 H (20.0-27.5) mmol/L Anion Gap 3.60 L (10.00-18.00) mmol/L BUN 41.4 H (9.0-27.0) mg/dL Creatinine 0.5 L (0.6-1.5) mg/dL BUN/Creatinine Ratio 81.34 H (12.00-20.00) Ratio Glucose 152 H (70-110) mg/dL POC Glucose (mg/dL) 263 H (70-110) mg/dL Assessment and Plan Assessment: Acute exacerbation of end-stage COPD Acute on chronic hypoxic respiratory failure severe calorie protein malnutrition Metabolic encephalopathy most likely secondary to above, resolved Nicotine dependence Hyponatremia Hyponatremia, chronic Diabetes mellitus Hypertension Hyperlipidemia Hypothyroidism History of osteoarthritis Plan: This is a pleasant 76 years old female who presents with acute COPD exacerbation Continue with steroids and bronchodilator Pulmonary consult As per he wanted to consult hospice care for her. This is confirmed by the patient herself when I talked to her Continue with the glipizide and insulin sliding scale Labs and medication were reviewed.. Continue same treatment. Continue with symptomatic treatment. Resume home medication. Monitor lytes and vitals. DVT and GI prophylaxis. Further recommendations depends on the clinical course of the patient DVT prophylaxis: Subcutaneous heparin GI Prophylaxis: Ppi Prognosis is very poor Continue with BiPAP at night
[2021-12-21] MEDS: methylPREDNISolone SOD SUCCI 125 MG/2 ML VIAL IV SCH ×3 (00:35→12:58)
[2021-12-21] MEDS: ERYTHROMYCIN 5 MG/GM OPHTH OINT 3.5 GM TUBE BOTH EYES SCH ×3 (00:36→15:23)
[2021-12-21] MEDS: LEVOTHYROXINE 75 MCG TAB PO SCH (05:37)
[2021-12-21 06:56] LABS: Glucose,Whole Blood 204 mg/dL (70-110)
[2021-12-21] MEDS: SYMBICORT 160-4.5 MCG INHALER INHALATION SCH ×2 (07:25→20:45)
[2021-12-21] MEDS: IPRATROPIUM-ALBUTEROL 3 ML NEB INHALATION SCH ×4 (07:25→20:45)
[2021-12-21] MEDS: HYDROCORTISONE 10 MG TAB PO SCH (07:42)
[2021-12-21] MEDS: HEPARIN SODIUM,PORCINE/PF 5,000 UNIT/0.5 ML SYRINGE SQ SCH ×2 (07:42→21:39)
[2021-12-21] MEDS: CHOLECALCIFEROL 25 MCG (1000 IU) TABLET PO SCH (07:42)
[2021-12-21] MEDS: INSULIN ASPART (NovoLOG) 100 UNIT/ML VIAL SQ SCH ×4 (07:42→21:42)
[2021-12-21] MEDS: FOLIC ACID 1 MG TAB PO SCH (07:42)
[2021-12-21] MEDS: ASPIRIN 81 MG PO SCH (07:42)
[2021-12-21] MEDS: SPIRONOLACTONE 25 MG TAB PO SCH (07:43)
[2021-12-21] MEDS: FERROUS SULFATE 325 MG TAB PO SCH (07:43)
[2021-12-21] MEDS: TAMSULOSIN 0.4 MG CAP.ER.24H PO SCH (07:43)
[2021-12-21] MEDS: PANTOPRAZOLE 40 MG TABLET PO SCH (07:43)
[2021-12-21] MEDS: MULTIVITAMINS, THERA 1 EACH TAB PO SCH (07:43)
[2021-12-21] MEDS: glipiZIDE 5 MG TAB PO SCH ×2 (07:43→21:39)
[2021-12-21] MEDS: METOPROLOL TARTRATE 25 MG TAB PO SCH ×2 (07:43→21:39)
[2021-12-21 09:25] LABS: Basophils # (A) 0.02 X 10*3/uL (0.00-0.10); Basophils % (A) 0.2 %; Eosinophils # (A) 0 X 10*3/uL (0.04-0.35); Eosinophils % (A) 0 %; HCT 37.4 % (37.2-46.3); HGB 10.7 g/dL (12.0-15.0); Immature Grans, Automated 1.2 %; Lymphocytes # (A) 0.17 X 10*3/uL (0.90-5.00); Lymphocytes % (A) 1.3 %; MCH 27.7 pg (27.0-32.0); MCHC 28.6 g/dL (32.0-37.0); MCV 96.9 fL (80.0-97.0); Mean Platelet Volume 10.4 fL (9.5-12.2); Monocytes # (A) 0.48 X 10*3/uL (0.20-1.00); Monocytes % (A) 3.7 %; NRBC Per 100 WBC 0 /100 WBCS (0.0-0.0); Neutrophils # (A) 12.04 X 10*3/uL (1.80-7.70); Neutrophils % (A) 93.6 %; Platelet Count 213 X 10*3/uL (140-440); RBC 3.86 X 10*6/uL (4.10-5.20); RDW 13.2 % (11.5-14.5); WBC 12.87 X 10*3/uL (4.50-10.00)
[2021-12-21 09:37] LABS: African American GFR (CKD) 108.7 (60.0-200.0); Anion Gap 3.3 mmol/L (10.00-18.00); BUN/Creat Ratio 78.63 Ratio (12.00-20.00); Blood Urea Nitrogen 37.9 mg/dL (9.0-27.0); Calcium 9.3 mg/dL (8.7-10.3); Carbon Dioxide 33.8 mmol/L (20.0-27.5); Magnesium 2.2 mg/dL (1.5-2.4); Non-African American GFR(CKD) 93.8 (60.0-200.0); Potassium 5.6 mmol/L (3.5-5.5)
[2021-12-21 11:02] LABS: Glucose,Whole Blood 219 mg/dL (70-110)
[2021-12-21] MEDS: SODIUM CHLORIDE 0.9% 1,000 ML IV SCH (12:59)
--- NOTE | 2021-12-21 14:11 | P.PN ---
Subjective Progress Note Date: 12/21/21 This is a very pleasant 76-year-old female patient with past medical history of advanced COPD, on home oxygen, normally wears 4 L of oxygen, baseline FEV1 of 28% of predicted, stage IV COPD, long history of chronic and ongoing smoking, hypertension, osteoarthritis, hypothyroidism, anxiety. She's had multiple admissions for COPD exacerbations and was recently discharged again on 12/10/2021. She presented again to the emergency room again yesterday with complaints of increasing shortness of breath. She been not taking her medications at home. She was unable to take care of herself in the home set ting. Chest x-ray revealed prominent interstitial lung markings, nonspecific and could be related to COPD changes. No acute pulmonary process. She is seen today in consultation in the emergency department. She is currently on BiPAP 10/5 and 30% FiO2. More awake and alert. Arterial blood gases revealed a PaO2 of 70, pCO2 of 93 and a pH of 7.23 on 32% FiO2. White count 9.3. Hemoglobin 12.5. Platelets 275. Sodium 133. Potassium 4.9. Bicarbonate 33. BUN 29. Creatinine 0.41. Glucose 170. He's been initiated on Symbicort, DuoNeb inhalations, IV Solu-Medrol. Heparin for DVT prophylaxis. Normal saline at 75 ML's per hour. On today's evaluation of 12/18/2021, doing much better and the patient has been more comfortable with her breathing. The patient will be given some time off t he BiPAP mask. She is currently the BiPAP at a pressure of 10/5 with an FiO2 of 30%. No chest pain. No signs of any CO2 narcosis. She is advanced end-stage COPD. The patient has recent blood work showing a white cell count of 10.6 hemoglobin of 11.3, BUN is at 30 with a creatinine of 0.4 and sodium level 135. She is extremely cachectic. We'll need to boost up her nutrition. Body mass index is 16.1. 12/19/2021, the patient is awake and alert and the patient denies having any specific complaints the patient is currently off the BiPAP and patient is currently on 5 L of O2 nasal cannula. This can be further weaning down. Overnight, she is still using the BiPAP. No chest pain. Limited congestion. Remains on Rocephin and IV Solu-Medrol and DuoNeb nebulized treatments around the clock. 7022, clinically the same and the patient is unchanged. No signs of any CO2 narcosis and the patient is interactive at 5 L of oxygen by nasal cannula. Remains on Rocephin and Zithromax. Remains on IV Solu-Medrol. Weak and extensively debilitated. May need placement. 72,022, no new complaints , remains on 5 L of Oxymizer nasal cannula, congested cough, unable to bring up much sputum. Oral intake is quite diminished and the patient is quite cachectic with a body mass index of 16.1. White cycles of 12.8 with hemoglobin 10.7. Sodium is at 136 with a potassium level of 5.6 and a BUN of 37 with a creatinine of 0.5. Glucose of 219. The patient remains on IV Solu-Medrol 60 mg every 6 hours. The patient is also on Zithromax as an empiric antibiotic coverage, DuoNeb nebulized treatments around the clock, Symbicort as maintenance. IV fluids are currently at KVO. She is significantly debilitated. Objective - Vital Signs Vital signs: Vital Signs Temp 98.6 F 12/21/21 11:30 Pulse 66 12/21/21 11:30 Resp 20 12/21/21 11:30 BP 134/61 12/21/21 11:30 Pulse Ox 100 12/21/21 11:30 FiO2 30 12/21/21 01:05 Intake & Output 12/20/21 12/21/21 12/21/21 18:59 06:59 18:59 Intake Total 350 Output Total 200 Balance 150 Intake: Oral 350 Output: Urine 200 Other: Voiding Method Bedpan Bedpan Incontinent Incontinent External Catheter # Voids 2 - Exam GENERAL EXAM: Alert, pleasant frail 76-year-old female, on BiPAP 10/5, FiO2 30% FiO2, comfortable in no apparent distress. HEAD: Normocephalic. EYES: Normal reaction of pupils, equal size. NOSE: Clear with pink turbinates. THROAT: No erythema or exudates. NECK: No masses, no JVD. CHEST: No chest wall deformity. LUNGS: Equal air entry with faint bilateral end expiratory wheeze, diminished. CVS: S1 and S2 normal with no audible murmur, regular rhythm. ABDOMEN: No hepatosplenomegaly, normal bowel sounds, no guarding or rigidity. SPINE: No scoliosis or deformity SKIN: No rashes, arms have areas of ecchymosis. CENTRAL NERVOUS SYSTEM: No focal deficits, tone is normal in all 4 extremities. EXTREMITIES: There is no peripheral edema. No clubbing, no cyanosis. Peripheral pulses are intact. - Labs CBC & Chem 7: 12/21/21 06:26 12/21/21 06:26 Labs: Abnormal Lab Results - Last 24 Hours (Table) 12/20/21 12/20/21 12/21/21 Range/Units 17:05 19:28 06:26 WBC 12.87 H (4.50-10.00) X 10*3/uL RBC 3.86 L (4.10-5.20) X 10*6/uL Hgb 10.7 L (12.0-15.0) g/dL MCHC 28.6 L (32.0-37.0) g/dL Immature Gran # 0.16 H (0.00-0.04) X 10*3/uL Neutrophils # 12.04 H (1.80-7.70) X 10*3/uL Lymphocytes # 0.17 L (0.90-5.00) X 10*3/uL Eosinophils # 0 L (0.04-0.35) X 10*3/uL Potassium (3.5-5.5) mmol/L Carbon Dioxide (20.0-27.5) mmol/L Anion Gap (10.00-18.00) mmol/L BUN (9.0-27.0) mg/dL Creatinine (0.6-1.5) mg/dL BUN/Creatinine Ratio (12.00-20.00) Ratio Glucose (70-110) mg/dL POC Glucose (mg/dL) 250 H 202 H (70-110) mg/dL 12/21/21 12/21/21 12/21/21 Range/Units 06:26 06:54 11:01 WBC (4.50-10.00) X 10*3/uL RBC (4.10-5.20) X 10*6/uL Hgb (12.0-15.0) g/dL MCHC (32.0-37.0) g/dL Immature Gran # (0.00-0.04) X 10*3/uL Neutrophils # (1.80-7.70) X 10*3/uL Lymphocytes # (0.90-5.00) X 10*3/uL Eosinophils # (0.04-0.35) X 10*3/uL Potassium 5.6 H (3.5-5.5) mmol/L Carbon Dioxide 33.8 H (20.0-27.5) mmol/L Anion Gap 3.30 L (10.00-18.00) mmol/L BUN 37.9 H (9.0-27.0) mg/dL Creatinine 0.5 L (0.6-1.5) mg/dL BUN/Creatinine Ratio 78.63 H (12.00-20.00) Ratio Glucose 211 H (70-110) mg/dL POC Glucose (mg/dL) 204 H 219 H (70-110) mg/dL Assessment and Plan Assessment: Acute exacerbation of chronic obstructive pulmonary disease, clinically improving Acute on chronic hypoxemic respiratory failure secondary to above, 5 L of O2 nasal cannula Acute on chronic hypercapnic respiratory failure secondary to above, improved that is no signs of CO2 narcosis Advanced and end-stage COPD with chronic hypoxemic and hypercapnic respiratory failure related to advanced COPD, stage IV, with baseline FEV1 of 28% of predicted, oxygen at 4 L of O2 by nasal cannula. Chronic and ongoing tobacco dependence Hypertension Osteoarthritis Hypothyroidism Anxiety Frequent falls History of fracture in the left upper extremity Multiple areas of ecchymosis largest in the left upper extremity Poor overall functional performance based on the above-mentioned multiple comorbidities Plan: Wean down the FiO2 as tolerated currently on 5 L, wean down the FiO2 This continued IV Solu Medrol start the patient prednisone burst taper No major change in her condition No signs of CO2 narcosis Titrate the FiO2 as tolerated currently on 5 L Continue Symbicort, DuoNeb inhalations Zithromax and empiric antibiotic coverage, complete a 5 day course Social work regarding placement CODE STATUS should be addressed by primary services She has been a DO NOT RESUSCITATE/DO NOT INTUBATE CODE STATUS in the past
[2021-12-21] MEDS: predniSONE 20 MG TAB PO SCH (15:23)
[2021-12-21] MEDS: ALPRAZolam 0.25 MG TAB PO PRN (15:23)
[2021-12-21 17:25] LABS: Glucose,Whole Blood 296 mg/dL (70-110)
--- NOTE | 2021-12-21 18:13 | P.PN ---
Subjective This is a pleasant 76 years old female with past medical history of COPD, Diabetes Mellitus, Hyperlipidemia, Hypertension, Osteoarthritis hypothyroidism ,chronic hypoxic hypercarbic respiratory failure, home oxygen at 4L/NC ATC, purulent tracheobronchitis, hyponatremia, hyperkalemia, severe constipation 2010, PVD/PAD, past leg and foot wounds, urinary retention with IDC since removed, Presents because of dyspnea. Her dyspnea was progressively worse , she was here in this hospital about one week ago, where she was evaluated by pulmonary ser vice, improved back to baseline and cleared for discharge with strict instruction not to go back to smoking , however pt kept smoking a lot at home as per . Patient was lying in room 18 in the emergency room, confused, when I ask her about her name she mumbles only, she barely moves her chest and there is no good air entry. I called the Tenzin barnes at [phone] and I discussed the case with him, he said she was getting breathing difficulty but he could not tell for how many days, then he has a visiting nurse who recommended for the present her to the hospital. During this time she was still smoking even in her bed breathing situation prior to come to the hospital she was urging the to give her a cigarette "that's how bad it is" states. However the does not want any Heroic measures and when I talked to him about possible palliative care versus hospice he agreed and he wants me to consult hospice team for her Patient chronic heavy smoker, possible could not specify how much she smokes, no alcohol or illicit drugs Patient is afebrile and vitals are stable, she is saturating 99% on 3 L oxygen via nasal cannula WBC is 11.6. Trace of CBC is unremarkable, INR 0.9, 12/18/2021 Patient is awake and alert today but she is looking very tired. She was on 4 L/m of oxygen in the morning. She has been using the BiPAP during the night. Other than that vitals and labs look stable. WBC is 10, hemoglobin 11. She remains on Zithromax, Solu-Medrol and normal saline at 75 mL/h as patient looks dehydrated. I ask her and she confirmed to me she wants to talk to hospice care team. Currently patient has DO NOT RESUSCITATE order addressed by primary team 12/19/2021 patient sitting in bed most of the time, she looks not in significant distress. She can talk and awake but very tired very cachectic and barely can move her chest while breathing because of her advanced and end stage COPD. She is on Solu-Medrol and Zithromax IV fluids were stopped Check BMP in the morning 12/20/21 Patient awake alert and oriented. She is less tired. Today I tried to explain to the patient the nature of her advanced disease. She is on 5 L oxygen via nasal cannula but stopped using BiPAP during the night. She remains on Solu-Medrol 60 mg Zithromax. IV fluids stopped we would add ensure for nutrition support I agree patient might benefit from placement 12/21/2021 Patient currently breathing quietly while she is at rest. He does not need BiPAP machine during the night. However her respiratory reserve is a slim, she is very debilitated, she got agitated at time probably from her delirium. She remains on 5 L oxygen Steroids in the form of prednisone 60 IV fluid is off Continue on Zithromax for total doses of 5 days Objective - Vital Signs Vital signs: Vital Signs Temp 97.0 F L 12/21/21 05:00 Pulse 76 12/21/21 11:19 Resp 20 12/21/21 05:00 BP 149/72 12/21/21 05:00 Pulse Ox 97 12/21/21 05:00 FiO2 30 12/21/21 01:05 Intake & Output 12/20/21 12/21/21 12/21/21 18:59 06:59 18:59 Intake Total 350 Output Total 200 Balance 150 Intake: Oral 350 Output: Urine 200 Other: Voiding Method Bedpan Bedpan Incontinent Incontinent External Catheter # Voids 2 - Exam -GENERAL: The patient is alert and oriented x3, not in any acute distress. Patient is very cachectic HEENT: Pupils are round and equally reacting to light. EOMI. No scleral icterus. No conjunctival pallor. Normocephalic, atraumatic. No pharyngeal erythema. No thyromegaly. CARDIOVASCULAR: S1 and S2 present. No murmurs, rubs, or gallops. -PULMONARY: Chest is clear to auscultation, no scattered wheezing with limited air entry ABDOMEN: Soft, nontender, nondistended, normoactive bowel sounds. No palpable organomegaly. MUSCULOSKELETAL: No joint swelling or deformity. EXTREMITIES: No cyanosis, clubbing, or pedal edema. NEUROLOGICAL: Gross neurological examination did not reveal any focal deficits. SKIN: No rashes. no petechiae. - Labs CBC & Chem 7: 12/21/21 06:26 12/21/21 06:26 Labs: Abnormal Lab Results - Last 24 Hours (Table) 12/20/21 12/20/21 12/20/21 Range/Units 12:11 17:05 19:28 WBC (4.50-10.00) X 10*3/uL RBC (4.10-5.20) X 10*6/uL Hgb (12.0-15.0) g/dL MCHC (32.0-37.0) g/dL Immature Gran # (0.00-0.04) X 10*3/uL Neutrophils # (1.80-7.70) X 10*3/uL Lymphocytes # (0.90-5.00) X 10*3/uL Eosinophils # (0.04-0.35) X 10*3/uL Potassium (3.5-5.5) mmol/L Carbon Dioxide (20.0-27.5) mmol/L Anion Gap (10.00-18.00) mmol/L BUN (9.0-27.0) mg/dL Creatinine (0.6-1.5) mg/dL BUN/Creatinine Ratio (12.00-20.00) Ratio Glucose (70-110) mg/dL POC Glucose (mg/dL) 318 H 250 H 202 H (70-110) mg/dL 12/21/21 12/21/21 12/21/21 Range/Units 06:26 06:26 06:54 WBC 12.87 H (4.50-10.00) X 10*3/uL RBC 3.86 L (4.10-5.20) X 10*6/uL Hgb 10.7 L (12.0-15.0) g/dL MCHC 28.6 L (32.0-37.0) g/dL Immature Gran # 0.16 H (0.00-0.04) X 10*3/uL Neutrophils # 12.04 H (1.80-7.70) X 10*3/uL Lymphocytes # 0.17 L (0.90-5.00) X 10*3/uL Eosinophils # 0 L (0.04-0.35) X 10*3/uL Potassium 5.6 H (3.5-5.5) mmol/L Carbon Dioxide 33.8 H (20.0-27.5) mmol/L Anion Gap 3.30 L (10.00-18.00) mmol/L BUN 37.9 H (9.0-27.0) mg/dL Creatinine 0.5 L (0.6-1.5) mg/dL BUN/Creatinine Ratio 78.63 H (12.00-20.00) Ratio Glucose 211 H (70-110) mg/dL POC Glucose (mg/dL) 204 H (70-110) mg/dL 12/21/21 Range/Units 11:01 WBC (4.50-10.00) X 10*3/uL RBC (4.10-5.20) X 10*6/uL Hgb (12.0-15.0) g/dL MCHC (32.0-37.0) g/dL Immature Gran # (0.00-0.04) X 10*3/uL Neutrophils # (1.80-7.70) X 10*3/uL Lymphocytes # (0.90-5.00) X 10*3/uL Eosinophils # (0.04-0.35) X 10*3/uL Potassium (3.5-5.5) mmol/L Carbon Dioxide (20.0-27.5) mmol/L Anion Gap (10.00-18.00) mmol/L BUN (9.0-27.0) mg/dL Creatinine (0.6-1.5) mg/dL BUN/Creatinine Ratio (12.00-20.00) Ratio Glucose (70-110) mg/dL POC Glucose (mg/dL) 219 H (70-110) mg/dL Assessment and Plan Assessment: Acute exacerbation of end-stage COPD Acute on chronic hypoxic respiratory failure severe calorie protein malnutrition Metabolic encephalopathy most likely secondary to above, resolved Nicotine dependence Hyponatremia Hyponatremia, chronic Diabetes mellitus Hypertension Hyperlipidemia Hypothyroidism History of osteoarthritis Plan: This is a pleasant 76 years old female who presents with acute COPD exacerbation Continue with steroids and bronchodilator Pulmonary consult As per he wanted to consult hospice care for her. This is confirmed by the patient herself when I talked to her Continue with the glipizide and insulin sliding scale Labs and medication were reviewed.. Continue same treatment. Continue with symptomatic treatment. Resume home medication. Monitor lytes and vitals. DVT and GI prophylaxis. Further recommendations depends on the clinical course of the patient DVT prophylaxis: Subcutaneous heparin GI Prophylaxis: Ppi Prognosis is very poor Continue with BiPAP at night
[2021-12-21 20:16] LABS: Glucose,Whole Blood 208 mg/dL (70-110)
[2021-12-21] MEDS: ATORVASTATIN 20 MG TAB PO SCH (21:39)
[2021-12-21] MEDS: AZITHROMYCIN 500 MG TAB PO SCH (21:39)
[2021-12-22] MEDS: ERYTHROMYCIN 5 MG/GM OPHTH OINT 3.5 GM TUBE BOTH EYES SCH ×3 (00:42→16:46)
[2021-12-22] MEDS: LEVOTHYROXINE 75 MCG TAB PO SCH (06:31)
[2021-12-22] MEDS: IPRATROPIUM-ALBUTEROL 3 ML NEB INHALATION SCH ×4 (07:20→18:54)
[2021-12-22] MEDS: SYMBICORT 160-4.5 MCG INHALER INHALATION SCH ×2 (07:21→18:55)
[2021-12-22 07:23] LABS: Glucose,Whole Blood 109 mg/dL (70-110)
[2021-12-22] MEDS: INSULIN ASPART (NovoLOG) 100 UNIT/ML VIAL SQ SCH ×4 (07:35→20:54)
[2021-12-22] MEDS: PANTOPRAZOLE 40 MG TABLET PO SCH (09:18)
[2021-12-22] MEDS: ASPIRIN 81 MG PO SCH (09:19)
[2021-12-22] MEDS: HEPARIN SODIUM,PORCINE/PF 5,000 UNIT/0.5 ML SYRINGE SQ SCH ×2 (09:19→20:54)
[2021-12-22] MEDS: METOPROLOL TARTRATE 25 MG TAB PO SCH ×2 (09:19→20:54)
[2021-12-22] MEDS: glipiZIDE 5 MG TAB PO SCH ×2 (09:19→20:54)
[2021-12-22] MEDS: FERROUS SULFATE 325 MG TAB PO SCH (09:19)
[2021-12-22] MEDS: CHOLECALCIFEROL 25 MCG (1000 IU) TABLET PO SCH (09:19)
[2021-12-22] MEDS: FOLIC ACID 1 MG TAB PO SCH (09:19)
[2021-12-22] MEDS: MULTIVITAMINS, THERA 1 EACH TAB PO SCH (09:20)
[2021-12-22] MEDS: SPIRONOLACTONE 25 MG TAB PO SCH (09:20)
[2021-12-22] MEDS: TAMSULOSIN 0.4 MG CAP.ER.24H PO SCH (09:20)
[2021-12-22] MEDS: predniSONE 20 MG TAB PO SCH (09:20)
[2021-12-22 11:43] LABS: Glucose,Whole Blood 163 mg/dL (70-110)
--- NOTE | 2021-12-22 13:19 | P.PN ---
Subjective Progress Note Date: 12/22/21 Principal diagnosis: Shortness of breath This is a very pleasant 76-year-old female patient with past medical history of advanced COPD, on home oxygen, normally wears 4 L of oxygen, baseline FEV1 of 28% of predicted, stage IV COPD, long history of chronic and ongoing smoking, hy pertension, osteoarthritis, hypothyroidism, anxiety. She's had multiple admissions for COPD exacerbations and was recently discharged again on 12/10/2021. She presented again to the emergency room again yesterday with complaints of increasing shortness of breath. She been not taking her medicatio ns at home. She was unable to take care of herself in the home setting. Chest x-ray revealed prominent interstitial lung markings, nonspecific and could be related to COPD changes. No acute pulmonary process. She is seen today in consultation in the emergency department. She is currently on BiPAP 10/5 and 30% FiO2. More awake and alert. Arterial blood gases revealed a PaO2 of 70, pCO2 of 93 and a pH of 7.23 on 32% FiO2. White count 9.3. Hemoglobin 12.5. Platelets 275. Sodium 133. Potassium 4.9. Bicarbonate 33. BUN 29. Creatinine 0.41. Glucose 170. He's been initiated on Symbicort, DuoNeb inhalations, IV Solu-Medrol. Heparin for DVT prophylaxis. Normal saline at 75 ML's per hour. On today's evaluation of 12/18/2021, doing much better and the patient has been more comfortable with her breathing. The patient will be given some time off the BiPAP mask. She is currently the BiPAP at a pressure of 10/5 with an FiO2 of 30%. No chest pain. No signs of any CO2 narcosis. She is advanced end- stage COPD. The patient has recent blood work showing a white cell count of 10 .6 hemoglobin of 11.3, BUN is at 30 with a creatinine of 0.4 and sodium level 135. She is extremely cachectic. We'll need to boost up her nutrition. Body mass index is 16.1. 12/19/2021, the patient is awake and alert and the patient denies having any specific complaints the patient is currently off the BiPAP and patient is currently on 5 L of O2 nasal cannula. This can be further weaning down. Overnight, she is still using the BiPAP. No chest pain. Limited congestion. Remains on Rocephin and IV Solu-Medrol and DuoNeb nebulized treatments around the clock. 7022, clinically the same and the patient is unchanged. No signs of any CO2 narcosis and the patient is interactive at 5 L of oxygen by nasal cannula. Remains on Rocephin and Zithromax. Remains on IV Solu-Medrol. Weak and e xtensively debilitated. May need placement. 72,022, no new complaints , remains on 5 L of Oxymizer nasal cannula, congested cough, unable to bring up much sputum. Oral intake is quite diminished and the patient is quite cachectic with a body mass index of 16.1. White cycles of 12.8 with hemoglobin 10.7. Sodium is at 136 with a potassium level of 5.6 and a BUN of 37 with a creatinine of 0.5. Glucose of 219. The patient remains on IV Solu-Medrol 60 mg every 6 hours. The patient is also on Zithromax as an empiric antibiotic coverage, DuoNeb nebulized treatments around the clock, Symbicort as maintenance. IV fluids are currently at KVO. She is significantly debilitated. On 12/22/2021 patient seen in follow-up on medical surgical floor, she is awake and alert, in no acute distress, she is currently on 5 L of oxygen setting 100%, she did wear BiPAP support last night with FiO2 of 30%. She is afebrile, hemodynamically she's been stable, no acute events overnight. She is quite med ically debilitated, but she is oriented 3, and she is able to make her needs known. She states her breathing is improving, however patient is chronically short of breath with any activity, related to end-stage COPD. No complaints of chest discomfort. No fever or chills. Her IV steroids have been transitioned to oral prednisone, she remains on nebulized and inhaled bronchodilators. She remains on azithromycin. She states she would like to go home, and she would like a cigarette. Otherwise no acute complaints Objective - Vital Signs Vital signs: Vital Signs Temp 98.1 F 12/22/21 11:35 Pulse 67 12/22/21 11:35 Resp 20 12/22/21 11:35 BP 132/74 12/22/21 11:35 Pulse Ox 100 12/22/21 11:35 FiO2 30 12/22/21 05:00 Intake & Output 12/21/21 12/22/21 12/22/21 18:59 06:59 18:59 Intake Total 360 Output Total 700 Balance 360 -700 Intake: Oral 360 Output: Urine 700 Other: Voiding Method Incontinent Incontinent External Catheter External Catheter # Voids 3 - Exam GENERAL EXAM: Alert, pleasant, 76-year-old cachectic white female, on 5 L of oxygen pulses 100%, comfortable in no apparent distress. HEAD: Normocephalic/atraumatic. EYES: Normal reaction of pupils, equal size. Conjunctiva pink, sclera white. NOSE: Clear with pink turbinates. THROAT: No erythema or exudates. NECK: No masses, no JVD, no thyroid enlargement, no adenopathy. CHEST: No chest wall deformity. Symmetrical expansion. LUNGS: Diminished air entry with no crackles, wheeze, rhonchi or dullness. CVS: Regular rate and rhythm, normal S1 and S2, no gallops, no murmurs, no rubs ABDOMEN: Soft, nontender. No hepatosplenomegaly, normal bowel sounds, no guarding or rigidity. EXTREMITIES: No clubbing, no edema, no cyanosis, 2+ pulses and upper and lower extremities. MUSCULOSKELETAL: Muscle strength and tone normal. SPINE: No scoliosis or deformity SKIN: No rashes CENTRAL NERVOUS SYSTEM: Alert and oriented -3. No focal deficits, tone is normal in all 4 extremities. PSYCHIATRIC: Alert and oriented -3. Appropriate affect. Intact judgment and insight. - Labs CBC & Chem 7: 12/21/21 06:26 12/21/21 06:26 Labs: Abnormal Lab Results - Last 24 Hours (Table) 12/21/21 12/21/21 12/22/21 Range/Units 17:24 20:14 11:42 POC Glucose (mg/dL) 296 H 208 H 163 H (70-110) mg/dL Assessment and Plan Plan: Assessment: Acute exacerbation of chronic obstructive pulmonary disease, clinically improving Acute on chronic hypoxemic respiratory failure secondary to above, 5 L of O2 nasal cannula Acute on chronic hypercapnic respiratory failure secondary to above, improved that is no signs of CO2 narcosis Advanced and end-stage COPD with chronic hypoxemic and hypercapnic respiratory failure related to advanced COPD, stage IV, with baseline FEV1 of 28% of predicted, oxygen at 4 L of O2 by nasal cannula. Chronic and ongoing tobacco dependence Hypertension Osteoarthritis Hypothyroidism Anxiety Frequent falls History of fracture in the left upper extremity Multiple areas of ecchymosis largest in the left upper extremity Poor overall functional performance based on the above-mentioned multiple c omorbidities Plan: Continue oral prednisone Continue antibiotics, Symbicort, DuoNeb Recommend hospice consultation CODE STATUS is DO NOT RESUSCITATE Overall prognosis is poor and guarded Patient states she would like to go home and she wants to continue to smoke We'll consult hospice for informational meeting with the patient and her family She could be considered for discharge possibly with hospice if agreed upon by her family and herself I have personally seen and examined the patient, performed the documentation and the assessment and plan as written. Number of minutes spent on the visit: [10] Time with Patient: Less than 30
[2021-12-22 17:01] LABS: Glucose,Whole Blood 271 mg/dL (70-110)
[2021-12-22 19:24] VITALS: RESP 16
--- NOTE | 2021-12-22 19:44 | P.PN ---
Subjective This is a pleasant 76 years old female with past medical history of COPD, Diabetes Mellitus, Hyperlipidemia, Hypertension, Osteoarthritis hypothyroidism ,chronic hypoxic hypercarbic respiratory failure, home oxygen at 4L/NC ATC, purulent tracheobronchitis, hyponatremia, hyperkalemia, severe constipation 2010, PVD/PAD, past leg and foot wounds, urinary retention with IDC since removed, Presents because of dyspnea. Her dyspnea was progressively worse , she was here in this hospital about one week ago, where she was evaluated by pulmonary ser vice, improved back to baseline and cleared for discharge with strict instruction not to go back to smoking , however pt kept smoking a lot at home as per . Patient was lying in room 18 in the emergency room, confused, when I ask her about her name she mumbles only, she barely moves her chest and there is no good air entry. I called the Tenzin barnes at [phone] and I discussed the case with him, he said she was getting breathing difficulty but he could not tell for how many days, then he has a visiting nurse who recommended for the present her to the hospital. During this time she was still smoking even in her bed breathing situation prior to come to the hospital she was urging the to give her a cigarette "that's how bad it is" states. However the does not want any Heroic measures and when I talked to him about possible palliative care versus hospice he agreed and he wants me to consult hospice team for her Patient chronic heavy smoker, possible could not specify how much she smokes, no alcohol or illicit drugs Patient is afebrile and vitals are stable, she is saturating 99% on 3 L oxygen via nasal cannula WBC is 11.6. Trace of CBC is unremarkable, INR 0.9, 12/18/2021 Patient is awake and alert today but she is looking very tired. She was on 4 L/m of oxygen in the morning. She has been using the BiPAP during the night. Other than that vitals and labs look stable. WBC is 10, hemoglobin 11. She remains on Zithromax, Solu-Medrol and normal saline at 75 mL/h as patient looks dehydrated. I ask her and she confirmed to me she wants to talk to hospice care team. Currently patient has DO NOT RESUSCITATE order addressed by primary team 12/19/2021 patient sitting in bed most of the time, she looks not in significant distress. She can talk and awake but very tired very cachectic and barely can move her chest while breathing because of her advanced and end stage COPD. She is on Solu-Medrol and Zithromax IV fluids were stopped Check BMP in the morning 12/20/21 Patient awake alert and oriented. She is less tired. Today I tried to explain to the patient the nature of her advanced disease. She is on 5 L oxygen via nasal cannula but stopped using BiPAP during the night. She remains on Solu-Medrol 60 mg Zithromax. IV fluids stopped we would add ensure for nutrition support I agree patient might benefit from placement 12/21/2021 Patient currently breathing quietly while she is at rest. He does not need BiPAP machine during the night. However her respiratory reserve is a slim, she is very debilitated, she got agitated at time probably from her delirium. She remains on 5 L oxygen Steroids in the form of prednisone 60 IV fluid is off Continue on Zithromax for total doses of 5 days 12/22/2021 Patient breathing is improving as good and stable, she is set duration 96% on 5 L oxygen Patient confirmed to be she wants to go home with hospice and she does not want rehab Patient is alert awake and oriented and has capacity to make medical decision about my evaluation Hospice team already consulted Objective - Vital Signs Vital signs: Vital Signs Temp 98.1 F 12/22/21 11:35 Pulse 84 12/22/21 18:55 Resp 20 12/22/21 11:35 BP 132/74 12/22/21 11:35 Pulse Ox 100 12/22/21 11:35 FiO2 30 12/22/21 05:00 Intake & Output 12/22/21 12/22/21 12/23/21 06:59 18:59 06:59 Output Total 700 Balance -700 Weight 45.359 kg Output: Urine 700 Other: Voiding Method Incontinent Incontinent External Catheter External Catheter # Bowel Movements 1 - Exam -GENERAL: The patient is alert and oriented x3, not in any acute distress. Patient is very cachectic HEENT: Pupils are round and equally reacting to light. EOMI. No scleral icterus. No conjunctival pallor. Normocephalic, atraumatic. No pharyngeal erythema. No thyromegaly. CARDIOVASCULAR: S1 and S2 present. No murmurs, rubs, or gallops. -PULMONARY: Chest is clear to auscultation, no scattered wheezing with limited air entry ABDOMEN: Soft, nontender, nondistended, normoactive bowel sounds. No palpable organomegaly. MUSCULOSKELETAL: No joint swelling or deformity. EXTREMITIES: No cyanosis, clubbing, or pedal edema. NEUROLOGICAL: Gross neurological examination did not reveal any focal deficits. SKIN: No rashes. no petechiae. - Labs CBC & Chem 7: 12/21/21 06:26 12/21/21 06:26 Labs: Abnormal Lab Results - Last 24 Hours (Table) 12/21/21 12/22/21 12/22/21 Range/Units 20:14 11:42 16:59 POC Glucose (mg/dL) 208 H 163 H 271 H (70-110) mg/dL Assessment and Plan Assessment: Acute exacerbation of end-stage COPD Acute on chronic hypoxic respiratory failure severe calorie protein malnutrition Metabolic encephalopathy most likely secondary to above, resolved Nicotine dependence Hyponatremia Hyponatremia, chronic Diabetes mellitus Hypertension Hyperlipidemia Hypothyroidism History of osteoarthritis Plan: This is a pleasant 76 years old female who presents with acute COPD exacerbation Continue with steroids and bronchodilator Pulmonary consult As per he wanted to consult hospice care for her. This is confirmed by the patient herself when I talked to her Continue with the glipizide and insulin sliding scale Labs and medication were reviewed.. Continue same treatment. Continue with symptomatic treatment. Resume home medication. Monitor lytes and vitals. DVT and GI prophylaxis. Further recommendations depends on the clinical course of the patient DVT prophylaxis: Subcutaneous heparin GI Prophylaxis: Ppi Prognosis is very poor Continue with BiPAP at night
[2021-12-22 19:52] LABS: Glucose,Whole Blood 318 mg/dL (70-110)
[2021-12-22] MEDS: ATORVASTATIN 20 MG TAB PO SCH (20:54)
[2021-12-22] MEDS: AZITHROMYCIN 500 MG TAB PO SCH (20:54)
[2021-12-22] MEDS: SODIUM CHLORIDE 0.9% 1,000 ML IV SCH (20:55)
[2021-12-23] MEDS: ERYTHROMYCIN 5 MG/GM OPHTH OINT 3.5 GM TUBE BOTH EYES SCH ×3 (01:50→14:44)
[2021-12-23] MEDS: ALPRAZolam 0.25 MG TAB PO PRN (01:58)
[2021-12-23] MEDS: LEVOTHYROXINE 75 MCG TAB PO SCH (05:08)
[2021-12-23 07:07] LABS: Glucose,Whole Blood 67 mg/dL (70-110)
[2021-12-23] MEDS: IPRATROPIUM-ALBUTEROL 3 ML NEB INHALATION SCH ×4 (07:39→18:53)
[2021-12-23] MEDS: SYMBICORT 160-4.5 MCG INHALER INHALATION SCH ×2 (07:39→18:53)
[2021-12-23 07:54] LABS: Glucose,Whole Blood 133 mg/dL (70-110)
[2021-12-23] MEDS: INSULIN ASPART (NovoLOG) 100 UNIT/ML VIAL SQ SCH ×4 (07:58→22:18)
[2021-12-23] MEDS: PANTOPRAZOLE 40 MG TABLET PO SCH (08:20)
[2021-12-23] MEDS: METOPROLOL TARTRATE 25 MG TAB PO SCH ×2 (08:21→22:18)
[2021-12-23] MEDS: FERROUS SULFATE 325 MG TAB PO SCH (08:21)
[2021-12-23] MEDS: FOLIC ACID 1 MG TAB PO SCH (08:21)
[2021-12-23] MEDS: TAMSULOSIN 0.4 MG CAP.ER.24H PO SCH (08:21)
[2021-12-23] MEDS: CHOLECALCIFEROL 25 MCG (1000 IU) TABLET PO SCH (08:21)
[2021-12-23] MEDS: MULTIVITAMINS, THERA 1 EACH TAB PO SCH (08:21)
[2021-12-23] MEDS: ASPIRIN 81 MG PO SCH (08:21)
[2021-12-23] MEDS: predniSONE 20 MG TAB PO SCH (08:22)
[2021-12-23] MEDS: SPIRONOLACTONE 25 MG TAB PO SCH (08:22)
[2021-12-23] MEDS: HEPARIN SODIUM,PORCINE/PF 5,000 UNIT/0.5 ML SYRINGE SQ SCH ×2 (08:22→22:18)
[2021-12-23] MEDS: glipiZIDE 5 MG TAB PO SCH ×2 (08:22→22:18)
[2021-12-23 11:02] LABS: Glucose,Whole Blood 99 mg/dL (70-110)
--- NOTE | 2021-12-23 12:02 | P.PN ---
Subjective This is a pleasant 76 years old female with past medical history of COPD, Diabetes Mellitus, Hyperlipidemia, Hypertension, Osteoarthritis hypothyroidism ,chronic hypoxic hypercarbic respiratory failure, home oxygen at 4L/NC ATC, purulent tracheobronchitis, hyponatremia, hyperkalemia, severe constipation 2010, PVD/PAD, past leg and foot wounds, urinary retention with IDC since removed, Presents because of dyspnea. Her dyspnea was progressively worse , she was here in this hospital about one week ago, where she was evaluated by pulmonary ser vice, improved back to baseline and cleared for discharge with strict instruction not to go back to smoking , however pt kept smoking a lot at home as per . Patient was lying in room 18 in the emergency room, confused, when I ask her about her name she mumbles only, she barely moves her chest and there is no good air entry. I called the Tenzin barnes at [phone] and I discussed the case with him, he said she was getting breathing difficulty but he could not tell for how many days, then he has a visiting nurse who recommended for the present her to the hospital. During this time she was still smoking even in her bed breathing situation prior to come to the hospital she was urging the to give her a cigarette "that's how bad it is" states. However the does not want any Heroic measures and when I talked to him about possible palliative care versus hospice he agreed and he wants me to consult hospice team for her Patient chronic heavy smoker, possible could not specify how much she smokes, no alcohol or illicit drugs Patient is afebrile and vitals are stable, she is saturating 99% on 3 L oxygen via nasal cannula WBC is 11.6. Trace of CBC is unremarkable, INR 0.9, 12/18/2021 Patient is awake and alert today but she is looking very tired. She was on 4 L/m of oxygen in the morning. She has been using the BiPAP during the night. Other than that vitals and labs look stable. WBC is 10, hemoglobin 11. She remains on Zithromax, Solu-Medrol and normal saline at 75 mL/h as patient looks dehydrated. I ask her and she confirmed to me she wants to talk to hospice care team. Currently patient has DO NOT RESUSCITATE order addressed by primary team 12/19/2021 patient sitting in bed most of the time, she looks not in significant distress. She can talk and awake but very tired very cachectic and barely can move her chest while breathing because of her advanced and end stage COPD. She is on Solu-Medrol and Zithromax IV fluids were stopped Check BMP in the morning 12/20/21 Patient awake alert and oriented. She is less tired. Today I tried to explain to the patient the nature of her advanced disease. She is on 5 L oxygen via nasal cannula but stopped using BiPAP during the night. She remains on Solu-Medrol 60 mg Zithromax. IV fluids stopped we would add ensure for nutrition support I agree patient might benefit from placement 12/21/2021 Patient currently breathing quietly while she is at rest. He does not need BiPAP machine during the night. However her respiratory reserve is a slim, she is very debilitated, she got agitated at time probably from her delirium. She remains on 5 L oxygen Steroids in the form of prednisone 60 IV fluid is off Continue on Zithromax for total doses of 5 days 12/22/2021 Patient breathing is improving as good and stable, she is set duration 96% on 5 L oxygen Patient confirmed to be she wants to go home with hospice and she does not want rehab Patient is alert awake and oriented and has capacity to make medical decision about my evaluation Hospice team already consulted 12/23/2021 Patient awake and alert Breathing improved while at rest. Saturation is at baseline Patient is interested in hospice care which was consulted We will keep monitoring. Continue with steroids. Today his last dose of Zithromax Objective - Vital Signs Vital signs: Vital Signs Temp 98 F 12/23/21 05:00 Pulse 77 12/23/21 08:26 Resp 16 12/23/21 05:00 BP 119/71 12/23/21 08:26 Pulse Ox 94 L 12/23/21 05:00 FiO2 30 12/22/21 22:58 Intake & Output 12/22/21 12/23/21 12/23/21 18:59 06:59 18:59 Output Total 401 Balance -401 Weight 45.359 kg Output: Urine 400 Stool 1 Other: Voiding Method Incontinent Incontinent External Catheter External Catheter # Bowel Movements 1 0 - Exam -GENERAL: The patient is alert and oriented x3, not in any acute distress. Patient is very cachectic HEENT: Pupils are round and equally reacting to light. EOMI. No scleral icterus. No conjunctival pallor. Normocephalic, atraumatic. No pharyngeal erythema. No thyromegaly. CARDIOVASCULAR: S1 and S2 present. No murmurs, rubs, or gallops. -PULMONARY: Chest is clear to auscultation, no scattered wheezing with limited air entry ABDOMEN: Soft, nontender, nondistended, normoactive bowel sounds. No palpable organomegaly. MUSCULOSKELETAL: No joint swelling or deformity. EXTREMITIES: No cyanosis, clubbing, or pedal edema. NEUROLOGICAL: Gross neurological examination did not reveal any focal deficits. SKIN: No rashes. no petechiae. - Labs CBC & Chem 7: 12/21/21 06:26 12/21/21 06:26 Labs: Abnormal Lab Results - Last 24 Hours (Table) 12/22/21 12/22/21 12/22/21 Range/Units 11:42 16:59 19:49 POC Glucose (mg/dL) 163 H 271 H 318 H (70-110) mg/dL 12/23/21 12/23/21 Range/Units 07:04 07:52 POC Glucose (mg/dL) 67 L 133 H (70-110) mg/dL Assessment and Plan Assessment: Acute exacerbation of end-stage COPD Acute on chronic hypoxic respiratory failure severe calorie protein malnutrition Metabolic encephalopathy most likely secondary to above, resolved Nicotine dependence Hyponatremia Hyponatremia, chronic Diabetes mellitus Hypertension Hyperlipidemia Hypothyroidism History of osteoarthritis Plan: This is a pleasant 76 years old female who presents with acute COPD exacerbation Continue with steroids and bronchodilator Pulmonary consult As per he wanted to consult hospice care for her. This is confirmed by the patient herself when I talked to her Continue with the glipizide and insulin sliding scale Labs and medication were reviewed.. Continue same treatment. Continue with symptomatic treatment. Resume home medication. Monitor lytes and vitals. DVT and GI prophylaxis. Further recommendations depends on the clinical course of the patient DVT prophylaxis: Subcutaneous heparin GI Prophylaxis: Ppi Prognosis is very poor Continue with BiPAP at night
--- NOTE | 2021-12-23 12:20 | P.PN ---
Subjective Progress Note Date: 12/23/21 Principal diagnosis: Shortness of breath This is a very pleasant 76-year-old female patient with past medical history of advanced COPD, on home oxygen, normally wears 4 L of oxygen, baseline FEV1 of 28% of predicted, stage IV COPD, long history of chronic and ongoing smoking, hy pertension, osteoarthritis, hypothyroidism, anxiety. She's had multiple admissions for COPD exacerbations and was recently discharged again on 12/10/2021. She presented again to the emergency room again yesterday with complaints of increasing shortness of breath. She been not taking her medicatio ns at home. She was unable to take care of herself in the home setting. Chest x-ray revealed prominent interstitial lung markings, nonspecific and could be related to COPD changes. No acute pulmonary process. She is seen today in consultation in the emergency department. She is currently on BiPAP 10/5 and 30% FiO2. More awake and alert. Arterial blood gases revealed a PaO2 of 70, pCO2 of 93 and a pH of 7.23 on 32% FiO2. White count 9.3. Hemoglobin 12.5. Platelets 275. Sodium 133. Potassium 4.9. Bicarbonate 33. BUN 29. Creatinine 0.41. Glucose 170. He's been initiated on Symbicort, DuoNeb inhalations, IV Solu-Medrol. Heparin for DVT prophylaxis. Normal saline at 75 ML's per hour. On today's evaluation of 12/18/2021, doing much better and the patient has been more comfortable with her breathing. The patient will be given some time off the BiPAP mask. She is currently the BiPAP at a pressure of 10/5 with an FiO2 of 30%. No chest pain. No signs of any CO2 narcosis. She is advanced end- stage COPD. The patient has recent blood work showing a white cell count of 10 .6 hemoglobin of 11.3, BUN is at 30 with a creatinine of 0.4 and sodium level 135. She is extremely cachectic. We'll need to boost up her nutrition. Body mass index is 16.1. 12/19/2021, the patient is awake and alert and the patient denies having any specific complaints the patient is currently off the BiPAP and patient is currently on 5 L of O2 nasal cannula. This can be further weaning down. Overnight, she is still using the BiPAP. No chest pain. Limited congestion. Remains on Rocephin and IV Solu-Medrol and DuoNeb nebulized treatments around the clock. 7022, clinically the same and the patient is unchanged. No signs of any CO2 narcosis and the patient is interactive at 5 L of oxygen by nasal cannula. Remains on Rocephin and Zithromax. Remains on IV Solu-Medrol. Weak and e xtensively debilitated. May need placement. 72,[id number], no new complaints , remains on 5 L of Oxymizer nasal cannula, congested cough, unable to bring up much sputum. Oral intake is quite diminished and the patient is quite cachectic with a body mass index of 16.1. White cycles of 12.8 with hemoglobin 10.7. Sodium is at 136 with a potassium level of 5.6 and a BUN of 37 with a creatinine of 0.5. Glucose of 219. The patient remains on IV Solu-Medrol 60 mg every 6 hours. The patient is also on Zithromax as an empiric antibiotic coverage, DuoNeb nebulized treatments around the clock, Symbicort as maintenance. IV fluids are currently at KVO. She is significantly debilitated. On 12/22/2021 patient seen in follow-up on medical surgical floor, she is awake and alert, in no acute distress, she is currently on 5 L of oxygen setting 100%, she did wear BiPAP support last night with FiO2 of 30%. She is afebrile, hemodynamically she's been stable, no acute events overnight. She is quite med ically debilitated, but she is oriented 3, and she is able to make her needs known. She states her breathing is improving, however patient is chronically short of breath with any activity, related to end-stage COPD. No complaints of chest discomfort. No fever or chills. Her IV steroids have been transitioned to oral prednisone, she remains on nebulized and inhaled bronchodilators. She remains on azithromycin. She states she would like to go home, and she would like a cigarette. Otherwise no acute complaints On 12/23/2021 patient seen in follow-up on medical surgical floor, she is rest ing comfortably in bed, on 5 L she sat 94%, she normally wears 4 L of oxygen at home on a regular basis, she also has a BiPAP device at home that she regularly liters at bedtime. She is awake and alert, oriented 3, breathing comfortably, no worsening dyspnea and cough or congestion, vital signs have been stable, no acute events overnight. Patient continues on nebulized and inhaled bronchodilators, antibiotics in the form of azithromycin, and oral prednisone. Patient has advanced lung disease, recurrent hospitalizations, she has been generally declining, and the recommendation has been made by our service to consider hospice care, and [facility] has been consulted but has not been in to evaluate the patient yet Objective - Vital Signs Vital signs: Vital Signs Temp 98.2 F 12/23/21 11:49 Pulse 60 12/23/21 11:49 Resp 16 12/23/21 11:49 BP 105/63 12/23/21 11:49 Pulse Ox 97 12/23/21 11:49 FiO2 30 12/22/21 22:58 Intake & Output 12/22/21 12/23/21 12/23/21 18:59 06:59 18:59 Output Total 401 Balance -401 Weight 45.359 kg Output: Urine 400 Stool 1 Other: Voiding Method Incontinent Incontinent Diaper External Catheter External Catheter Incontinent External Catheter # Bowel Movements 1 0 - Exam GENERAL EXAM: Alert, pleasant, 76-year-old cachectic white female, on 5 L of oxygen pulses 100%, comfortable in no apparent distress. HEAD: Normocephalic/atraumatic. EYES: Normal reaction of pupils, equal size. Conjunctiva pink, sclera white. NOSE: Clear with pink turbinates. THROAT: No erythema or exudates. NECK: No masses, no JVD, no thyroid enlargement, no adenopathy. CHEST: No chest wall deformity. Symmetrical expansion. LUNGS: Diminished air entry with no crackles, wheeze, rhonchi or dullness. CVS: Regular rate and rhythm, normal S1 and S2, no gallops, no murmurs, no rubs ABDOMEN: Soft, nontender. No hepatosplenomegaly, normal bowel sounds, no guarding or rigidity. EXTREMITIES: No clubbing, no edema, no cyanosis, 2+ pulses and upper and lower extremities. MUSCULOSKELETAL: Muscle strength and tone normal. SPINE: No scoliosis or deformity SKIN: No rashes CENTRAL NERVOUS SYSTEM: Alert and oriented -3. No focal deficits, tone is normal in all 4 extremities. PSYCHIATRIC: Alert and oriented -3. Appropriate affect. Intact judgment and insight. - Labs CBC & Chem 7: 12/21/21 06:26 12/21/21 06:26 Labs: Abnormal Lab Results - Last 24 Hours (Table) 12/22/21 12/22/21 12/23/21 Range/Units 16:59 19:49 07:04 POC Glucose (mg/dL) 271 H 318 H 67 L (70-110) mg/dL 12/23/21 Range/Units 07:52 POC Glucose (mg/dL) 133 H (70-110) mg/dL Assessment and Plan Plan: Assessment: Acute exacerbation of chronic obstructive pulmonary disease, clinically improving Acute on chronic hypoxemic respiratory failure secondary to above, 5 L of O2 nasal cannula Acute on chronic hypercapnic respiratory failure secondary to above, improved that is no signs of CO2 narcosis Advanced and end-stage COPD with chronic hypoxemic and hypercapnic respiratory failure related to advanced COPD, stage IV, with baseline FEV1 of 28% of predicted, oxygen at 4 L of O2 by nasal cannula. Chronic and ongoing tobacco dependence Hypertension Osteoarthritis Hypothyroidism Anxiety Frequent falls History of fracture in the left upper extremity Multiple areas of ecchymosis largest in the left upper extremity Poor overall functional performance based on the above-mentioned multiple comorbidities Plan: Continue current medical treatment Patient's FiO2 has been turned down to 4 L This is her home dose oxygen No worsening dyspnea BiPAP support at bedtime and as needed Patient does have a home BiPAP device and home oxygen Continue oral prednisone Continue antibiotics, Symbicort, DuoNeb Awaiting Hospice evaluation She could be considered for discharge possibly with hospice if agreed upon by her family and herself I have personally seen and examined the patient, performed the documentation and the assessment and plan as written. Number of minutes spent on the visit: [10] Time with Patient: Less than 30
[2021-12-23] MEDS: SODIUM CHLORIDE 0.9% 1,000 ML IV SCH (14:44)
[2021-12-23 17:08] LABS: Glucose,Whole Blood 239 mg/dL (70-110)
[2021-12-23 20:36] LABS: Glucose,Whole Blood 253 mg/dL (70-110)
[2021-12-23] MEDS: ATORVASTATIN 20 MG TAB PO SCH (22:18)
[2021-12-23] MEDS: AZITHROMYCIN 500 MG TAB PO SCH (22:18)
[2021-12-24] MEDS: ERYTHROMYCIN 5 MG/GM OPHTH OINT 3.5 GM TUBE BOTH EYES SCH ×2 (00:24→07:55)
[2021-12-24] MEDS: LEVOTHYROXINE 75 MCG TAB PO SCH (05:31)
[2021-12-24 07:05] LABS: Glucose,Whole Blood 72 mg/dL (70-110)
[2021-12-24] MEDS: IPRATROPIUM-ALBUTEROL 3 ML NEB INHALATION SCH ×3 (07:36→15:23)
[2021-12-24] MEDS: SYMBICORT 160-4.5 MCG INHALER INHALATION SCH (07:36)
[2021-12-24] MEDS: CHOLECALCIFEROL 25 MCG (1000 IU) TABLET PO SCH (07:54)
[2021-12-24] MEDS: HEPARIN SODIUM,PORCINE/PF 5,000 UNIT/0.5 ML SYRINGE SQ SCH (07:54)
[2021-12-24] MEDS: METOPROLOL TARTRATE 25 MG TAB PO SCH (07:54)
[2021-12-24] MEDS: ASPIRIN 81 MG PO SCH (07:54)
[2021-12-24] MEDS: SPIRONOLACTONE 25 MG TAB PO SCH (07:54)
[2021-12-24] MEDS: PANTOPRAZOLE 40 MG TABLET PO SCH (07:54)
[2021-12-24] MEDS: TAMSULOSIN 0.4 MG CAP.ER.24H PO SCH (07:54)
[2021-12-24] MEDS: glipiZIDE 5 MG TAB PO SCH (07:54)
[2021-12-24] MEDS: FOLIC ACID 1 MG TAB PO SCH (07:54)
[2021-12-24] MEDS: predniSONE 20 MG TAB PO SCH (07:54)
[2021-12-24] MEDS: FERROUS SULFATE 325 MG TAB PO SCH (07:54)
[2021-12-24] MEDS: INSULIN ASPART (NovoLOG) 100 UNIT/ML VIAL SQ SCH ×2 (07:55→12:15)
[2021-12-24] MEDS: MULTIVITAMINS, THERA 1 EACH TAB PO SCH (08:05)
[2021-12-24 11:17] LABS: Glucose,Whole Blood 151 mg/dL (70-110)
[2021-12-24] MEDS ORDERED: SODIUM CHLORIDE 0.9% 500 ML 500 ML IV ONE ×2 (11:30→14:50)
[2021-12-24] MEDS: SODIUM CHLORIDE 0.9% 1,000 ML IV SCH ×2 (11:45→12:15)
[2021-12-24 11:50] VITALS: TEMP 98.6
--- NOTE | 2021-12-24 12:07 | P.PN ---
Subjective Progress Note Date: 12/24/21 Principal diagnosis: Shortness of breath This is a very pleasant 76-year-old female patient with past medical history of advanced COPD, on home oxygen, normally wears 4 L of oxygen, baseline FEV1 of 28% of predicted, stage IV COPD, long history of chronic and ongoing smoking, hy pertension, osteoarthritis, hypothyroidism, anxiety. She's had multiple admissions for COPD exacerbations and was recently discharged again on 12/10/2021. She presented again to the emergency room again yesterday with complaints of increasing shortness of breath. She been not taking her medicatio ns at home. She was unable to take care of herself in the home setting. Chest x-ray revealed prominent interstitial lung markings, nonspecific and could be related to COPD changes. No acute pulmonary process. She is seen today in consultation in the emergency department. She is currently on BiPAP 10/5 and 30% FiO2. More awake and alert. Arterial blood gases revealed a PaO2 of 70, pCO2 of 93 and a pH of 7.23 on 32% FiO2. White count 9.3. Hemoglobin 12.5. Platelets 275. Sodium 133. Potassium 4.9. Bicarbonate 33. BUN 29. Creatinine 0.41. Glucose 170. He's been initiated on Symbicort, DuoNeb inhalations, IV Solu-Medrol. Heparin for DVT prophylaxis. Normal saline at 75 ML's per hour. On today's evaluation of 12/18/2021, doing much better and the patient has been more comfortable with her breathing. The patient will be given some time off the BiPAP mask. She is currently the BiPAP at a pressure of 10/5 with an FiO2 of 30%. No chest pain. No signs of any CO2 narcosis. She is advanced end- stage COPD. The patient has recent blood work showing a white cell count of 10 .6 hemoglobin of 11.3, BUN is at 30 with a creatinine of 0.4 and sodium level 135. She is extremely cachectic. We'll need to boost up her nutrition. Body mass index is 16.1. 12/19/2021, the patient is awake and alert and the patient denies having any specific complaints the patient is currently off the BiPAP and patient is currently on 5 L of O2 nasal cannula. This can be further weaning down. Overnight, she is still using the BiPAP. No chest pain. Limited congestion. Remains on Rocephin and IV Solu-Medrol and DuoNeb nebulized treatments around the clock. 7022, clinically the same and the patient is unchanged. No signs of any CO2 narcosis and the patient is interactive at 5 L of oxygen by nasal cannula. Remains on Rocephin and Zithromax. Remains on IV Solu-Medrol. Weak and e xtensively debilitated. May need placement. 72,[id number], no new complaints , remains on 5 L of Oxymizer nasal cannula, congested cough, unable to bring up much sputum. Oral intake is quite diminished and the patient is quite cachectic with a body mass index of 16.1. White cycles of 12.8 with hemoglobin 10.7. Sodium is at 136 with a potassium level of 5.6 and a BUN of 37 with a creatinine of 0.5. Glucose of 219. The patient remains on IV Solu-Medrol 60 mg every 6 hours. The patient is also on Zithromax as an empiric antibiotic coverage, DuoNeb nebulized treatments around the clock, Symbicort as maintenance. IV fluids are currently at KVO. She is significantly debilitated. On 12/22/2021 patient seen in follow-up on medical surgical floor, she is awake and alert, in no acute distress, she is currently on 5 L of oxygen setting 100%, she did wear BiPAP support last night with FiO2 of 30%. She is afebrile, hemodynamically she's been stable, no acute events overnight. She is quite med ically debilitated, but she is oriented 3, and she is able to make her needs known. She states her breathing is improving, however patient is chronically short of breath with any activity, related to end-stage COPD. No complaints of chest discomfort. No fever or chills. Her IV steroids have been transitioned to oral prednisone, she remains on nebulized and inhaled bronchodilators. She remains on azithromycin. She states she would like to go home, and she would like a cigarette. Otherwise no acute complaints On 12/23/2021 patient seen in follow-up on medical surgical floor, she is rest ing comfortably in bed, on 5 L she sat 94%, she normally wears 4 L of oxygen at home on a regular basis, she also has a BiPAP device at home that she regularly liters at bedtime. She is awake and alert, oriented 3, breathing comfortably, no worsening dyspnea and cough or congestion, vital signs have been stable, no acute events overnight. Patient continues on nebulized and inhaled bronchodilators, antibiotics in the form of azithromycin, and oral prednisone. Patient has advanced lung disease, recurrent hospitalizations, she has been generally declining, and the recommendation has been made by our service to consider hospice care, and [facility] has been consulted but has not been in to evaluate the patient yet On 12/24/2021 patient seen in follow-up in medical surgical floor, no acute events overnight, overall it has remained stable, she is currently on 5 L of oxygen pulse ox is 99 200%. She's been wearing BiPAP support at bedtime. Vital signs have been stable, no fever or chills. No chest pain, no hemoptysis, no acute events overnight, remains on oral prednisone, azithromycin, remains on nebulized and inhaled bronchodilators. Patient's had a conversation with Dr. Carlson, the patient and her well-known to Dr. Carlson and they follow with Dr. Carlson in the pulmonary clinic. The recommendation for hospice was explained to the , who agreed that patient has been declining, and agreed that patient should consider hospice. Objective - Vital Signs Vital signs: Vital Signs Temp 98.6 F 12/24/21 11:12 Pulse 61 12/24/21 11:12 Resp 16 12/24/21 11:12 BP 87/53 12/24/21 11:12 Pulse Ox 99 12/24/21 11:12 FiO2 30 12/22/21 22:58 Intake & Output 12/23/21 12/24/21 12/24/21 18:59 06:59 18:59 Output Total 700 900 400 Balance -700 -900 -400 Output: Urine 700 900 400 Other: Voiding Method Diaper Diaper Diaper Incontinent Incontinent Incontinent External Catheter External Catheter External Catheter - Exam GENERAL EXAM: Alert, pleasant, 76-year-old cachectic white female, on 5 L of oxygen pulses 100%, comfortable in no apparent distress. HEAD: Normocephalic/atraumatic. EYES: Normal reaction of pupils, equal size. Conjunctiva pink, sclera white. NOSE: Clear with pink turbinates. THROAT: No erythema or exudates. NECK: No masses, no JVD, no thyroid enlargement, no adenopathy. CHEST: No chest wall deformity. Symmetrical expansion. LUNGS: Diminished air entry with no crackles, wheeze, rhonchi or dullness. CVS: Regular rate and rhythm, normal S1 and S2, no gallops, no murmurs, no rubs ABDOMEN: Soft, nontender. No hepatosplenomegaly, normal bowel sounds, no guarding or rigidity. EXTREMITIES: No clubbing, no edema, no cyanosis, 2+ pulses and upper and lower extremities. MUSCULOSKELETAL: Muscle strength and tone normal. SPINE: No scoliosis or deformity SKIN: No rashes CENTRAL NERVOUS SYSTEM: Alert and oriented -3. No focal deficits, tone is normal in all 4 extremities. PSYCHIATRIC: Alert and oriented -3. Appropriate affect. Intact judgment and insight. - Labs CBC & Chem 7: 12/21/21 06:26 12/21/21 06:26 Labs: Abnormal Lab Results - Last 24 Hours (Table) 12/23/21 12/23/21 12/24/21 Range/Units 17:06 20:35 11:15 POC Glucose (mg/dL) 239 H 253 H 151 H (70-110) mg/dL Assessment and Plan Plan: Assessment: Acute exacerbation of chronic obstructive pulmonary disease, clinically improving Acute on chronic hypoxemic respiratory failure secondary to above, 5 L of O2 nasal cannula Acute on chronic hypercapnic respiratory failure secondary to above, improved that is no signs of CO2 narcosis Advanced and end-stage COPD with chronic hypoxemic and hypercapnic respiratory failure related to advanced COPD, stage IV, with baseline FEV1 of 28% of predicted, oxygen at 4 L of O2 by nasal cannula. Chronic and ongoing tobacco dependence Hypertension Osteoarthritis Hypothyroidism Anxiety Frequent falls History of fracture in the left upper extremity Multiple areas of ecchymosis largest in the left upper extremity Poor overall functional performance based on the above-mentioned multiple comorbidities Plan: Continue current medical treatment No worsening dyspnea BiPAP support at bedtime and as needed Patient's family and the patient met with hospice The decision was made for discharge home under the hospice care Discharge arrangements are currently in progress I have personally seen and examined the patient, performed the documentation and the assessment and plan as written. Number of minutes spent on the visit: [10] Time with Patient: Less than 30
[2021-12-24] MEDS ORDERED: SODIUM CHLORIDE 0.9% 500 ML 250 ML IV ONE (14:50)
[2021-12-24 15:57] VITALS: BP 120/68; PULSE 70
== END 2021-12-24 18:14 | disposition hospice, home (50) | DRG 190 ==
LOC: EC 15:42 → 5NMEDONC 16:55
PROVIDERS: ADMIT Hospitalist; ATTEND Hospitalist
PROC: 5A09357 Assistance with Respiratory Ventilation, Less than 24 Consecutive Hours, Continuous Positive Airway Pressure (ICD-10-PCS; principal; 2021-12-17)
DX: J44.1 Chronic obstructive pulmonary disease with (acute) exacerbation (principal); E43 Unspecified severe protein-calorie malnutrition; J96.21 Acute and chronic respiratory failure with hypoxia; J96.22 Acute and chronic respiratory failure with hypercapnia; G93.41 Metabolic encephalopathy; E87.1 Hypo-osmolality and hyponatremia; T76.01XA Adult neglect or abandonment, suspected, initial encounter; Z68.1 Body mass index [BMI] 19.9 or less, adult; E11.51 Type 2 diabetes mellitus with diabetic peripheral angiopathy without gangrene; I10 Essential (primary) hypertension; E03.9 Hypothyroidism, unspecified; E11.65 Type 2 diabetes mellitus with hyperglycemia; E86.0 Dehydration; E78.5 Hyperlipidemia, unspecified; Z96.1 Presence of intraocular lens; F41.9 Anxiety disorder, unspecified; F17.210 Nicotine dependence, cigarettes, uncomplicated; Z51.5 Encounter for palliative care; R29.6 Repeated falls; Z66 Do not resuscitate; M19.90 Unspecified osteoarthritis, unspecified site; R53.81 Other malaise; Z99.81 Dependence on supplemental oxygen; Z79.51 Long term (current) use of inhaled steroids; Z79.899 Other long term (current) drug therapy; Z79.84 Long term (current) use of oral hypoglycemic drugs; Z79.4 Long term (current) use of insulin; Z79.890 Hormone replacement therapy; Z79.82 Long term (current) use of aspirin; Z88.0 Allergy status to penicillin; Z88.1 Allergy status to other antibiotic agents; Z88.8 Allergy status to other drugs, medicaments and biological substances; Z80.0 Family history of malignant neoplasm of digestive organs; Z83.49 Family history of other endocrine, nutritional and metabolic diseases; Z90.710 Acquired absence of both cervix and uterus; Z98.51 Tubal ligation status; Z87.81 Personal history of (healed) traumatic fracture; Z87.440 Personal history of urinary (tract) infections; Z86.19 Personal history of other infectious and parasitic diseases; Z87.39 Personal history of other diseases of the musculoskeletal system and connective tissue
CPT/HCPCS: 36415; 36600; 71046; 80048; 80053; 81003; 82805; 83605; 83735; 83880; 84145; 84484; 85025; 85610; 85730; 93005; 94640; 94660; 94760; 96372; 96374; 96376; 99285